=== PATIENT | female | born 1940 | race Caucasian/White ===

== ENCOUNTER → 2017-10-13 10:24 | Emergency (ER) | payer MEDICARE, BC ==
[~2017-10-13 10:24] MED LIST: cefTRIAXone(*) 1 GM in NS 0.9% 50 ML* 50 ML IVPB ONE
[2017-10-13 11:12] LABS: ABS Basophils 0 10^3/ul (0-0.2); ABS Eosinophils 0.2 10^3/ul (0-0.6); ABS Lymphocytes 0.9 10^3/ul (1.0-4.8); ABS Monocytes 0.4 10^3/ul (0-0.8); ABS Neutrophils 4.2 10^3/ul (1.5-7.7); ABS Nucleated RBC 0 10^3/ul; Eosinophil % 3.8 % (0-6); Hematocrit 36 % (35-47); Hemoglobin 11.6 g/dl (12.0-16.0); Mean Corpuscular HGB Conc 32 g/dl (31-36); Mean Corpuscular Hemoglobin 28 pg (27-31); Mean Corpuscular Volume 85 fL (80-97); Mean Platelet Volume 7.8 um3 (7.4-10.4); Nucleated Red Blood Cells % 0; Platelet Count 158 10^3/ul (150-450); Red Blood Count 4.22 10^6/ul (4.0-5.4); Red Cell Distribution Width 19 % (10.5-15); White Blood Count 5.8 10^3/ul (3.5-10.8)
--- NOTE | 2017-10-13 11:21 | RAD ---
Indication: Right leg injury. 2 views of the right lower leg demonstrates no fracture. No other bone or joint abnormality is noted. IMPRESSION: No fracture of the right lower leg is noted.
[2017-10-13 11:35] LABS: EGFR Non-African American 69.7 (>60)
--- NOTE | 2017-10-13 12:30 | RAD ---
HISTORY: Right lower extremity swelling and redness COMPARISONS: None relevant TECHNIQUE: Multiple transverse and longitudinal ultrasound images were obtained of the right lower extremity from the level of the common femoral vein inferiorly through to the infrapopliteal veins using grayscale, color Doppler, and spectral Doppler imaging with and without compression and with augmentation. Comparison images were obtained of the contralateral common femoral vein. FINDINGS: VEINS: The venous system of the right lower extremity is compressible throughout its course, with normal flow on color Doppler imaging and normal response to augmentation on spectral Doppler imaging. SOFT TISSUES: Unremarkable. OTHER FINDINGS: None. IMPRESSION: NO RIGHT LOWER EXTREMITY DEEP VEIN THROMBOSIS
[2017-10-13 12:31] VITALS: BP 121/60
--- NOTE | 2017-10-13 17:41 | ED ---
Gulshan Borden Stephanie, scribed for Vinay Gunn MD on 10/13/17 at 1040 . Skin Complaint - HPI Summary HPI Summary: The pt is a 77 y/o F presenting to the ED with c/o a skin sore on her R LE that began a few days ago. Symptoms include R LE swelling and drainage. The pt states she hit her R LE on a post a few months ago and states her injury has partially improved but would worsen again over a period of time. She denies fever, chills and diaphoresis. Her pain is aggravated by ambulation. - History of Current Complaint Chief Complaint: EDDiabeticProb Time Seen by Provider: 10/13/17 10:30 Stated Complaint: RT LEG PAIN/SORES Hx Obtained From: Patient Onset/Duration: Started Days Ago, Still Present Timing: Constant Current Severity: Moderate Pain Intensity: 8 Pain Scale Used: 0-10 Numeric Skin Location: Foot - R Character: Swelling, Pain Aggravating Symptom(s): Other: - ambulation Alleviating Symptom(s): Nothing Related History: Diabetes - Additional Pertinent History Primary Care Physician: [id number] - Allergy/Home Medications Allergies/Adverse Reactions: Allergies Allergy/AdvReac Type Severity Reaction Status Date / Time No Known Allergies Allergy Verified 10/13/17 10:28 Home Medications: Home Medications Acarbose(NF) 25 mg PO TID 10/13/17 [History Confirmed 10/13/17] Glimepiride (NF) 3 mg PO BID 10/13/17 [History Confirmed 10/13/17] Insulin GLARGINE(*) [Lantus(*)] 60 units SUBCUT QPM 10/13/17 [History Confirmed 10/13/17] Iron 65 mg PO DAILY 10/13/17 [History Confirmed 10/13/17] Lisinopril TAB* [Prinivil TAB*] 5 mg PO DAILY 10/13/17 [History Confirmed ] Metoprolol Succinate XL TAB* [Toprol XL TAB*] 100 mg PO DAILY 10/13/17 [History Confirmed 10/13/17] Multivitamins/Minerals TAB* [Theragran/minerals TAB*] 1 tab PO DAILY 10/13/17 [ History Confirmed 10/13/17] Saxagliptin HCl (Nf) [Onglyza (NF)] 5 mg PO DAILY 10/13/17 [History Confirmed ] Spironolactone TAB* [Aldactone TAB*] 12.5 mg PO DAILY 10/13/17 [History Confirmed 10/13/17] PMH/Surg Hx/FS Hx/Imm Hx Endocrine/Hematology History: Reports: Hx Diabetes, Hx Anemia Cardiovascular History: Reports: Hx Coronary Artery Disease, Hx Hypercholesterolemia, Hx Hypertension GI History: Reports: Hx Hiatal Hernia History: Reports: Hx Kidney Stones Denies: Hx Kidney Infection, Hx Renal Disease Musculoskeletal History: Reports: Hx Arthritis, Other Musculoskeletal History - shoulder knee surgery Sensory History: Reports: Hx Contacts or Glasses Opthamlomology History: Reports: Hx Contacts or Glasses - Cancer History Cancer Type, Location and Year: Uterine CA initial dx 1989 - Surgical History Surgery Procedure, Year, and Place: [place], hysterectomy hernia repair gastroplasty Hx Anesthesia Reactions: No Infectious Disease History: No Infectious Disease History: Denies: Traveled Outside the [place] in Last 30 Days - Family History Known Family History: Negative: Renal Disease - Social History Occupation: Retired Lives: With Family Alcohol Use: Rare Hx Substance Use: No Substance Use Type: Reports: None Hx Tobacco Use: No Smoking Status (MU): Never Smoked Tobacco Have You Smoked in the Last Year: No Review of Systems Negative: Fever, Chills, Skin Diaphoresis Positive: Edema - R foot Positive: Other - R foot swelling and drainage All Other Systems Reviewed And Are Negative: Yes Physical Exam - Summary Physical Exam Summary: VITAL SIGNS: Reviewed. GENERAL: Patient is a well-developed and obese FEMALE who is lying comfortable in the stretcher. Patient is not in any acute respiratory distress. HEAD AND FACE: No signs of trauma. No ecchymosis, hematomas or skull depressions. No sinus tenderness. EYES: PERRLA, EOMI x 2, No injected conjunctiva, no nystagmus. EARS: Hearing grossly intact. Ear canals and tympanic membranes are within normal limits. MOUTH: Oropharynx within normal limits. NECK: Supple, trachea is midline, no adenopathy, no JVD, no carotid bruit, no c- spine tenderness, neck with full ROM. CHEST: Symmetric, no tenderness at palpation LUNGS: Clear to auscultation bilaterally. No wheezing or crackles. CVS: Regular rate and rhythm, S1 and S2 present, no murmurs or gallops appreciated. ABDOMEN: Soft, non-tender. No signs of distention. No rebound no guarding, and no masses palpated. Bowel sounds are normal. EXTREMITIES: FROM in all major joints, no edema, no cyanosis or clubbing. NEURO: Alert and oriented x 3. No acute neurological deficits. Speech is normal and follows commands. SKIN: Dry and warm, 6 small wounds on the R LE which are weeping and have some discharge. There is chronic brownish discoloration secondary to peripheral vascular disease. Triage Information Reviewed: Yes Vital Signs On Initial Exam: Initial Vitals Temp Pulse Resp BP Pulse Ox 96.7 F 80 16 138/96 94 10/13/17 10:25 10/13/17 10:25 10/13/17 10:25 10/13/17 10:25 10/13/17 10:25 Vital Signs Reviewed: Yes Diagnostics - Vital Signs Vital Signs Temp Pulse Resp BP Pulse Ox 10/13/17 10:25 96.7 F 80 16 138/96 94 - Laboratory Lab Results: Lab Results 10/13/17 10/13/17 10/13/17 Range/Units 10:59 10:59 10:59 WBC 5.8 (3.5-10.8) 10^3/ul RBC 4.22 (4.0-5.4) 10^6/ul Hgb 11.6 L (12.0-16.0) g/dl Hct 36 (35-47) % MCV 85 (80-97) fL MCH 28 (27-31) pg MCHC 32 (31-36) g/dl RDW 19 H (10.5-15) % Plt Count 158 (150-450) 10^3/ul MPV 7.8 (7.4-10.4) um3 Neut % (Auto) 72.4 (38-83) % Lymph % (Auto) 16.0 L (25-47) % Daggett % (Auto) 7.1 H (0-7) % Eos % (Auto) 3.8 (0-6) % Baso % (Auto) 0.7 (0-2) % Absolute Neuts (auto) 4.2 (1.5-7.7) 10^3/ul Absolute Lymphs (auto) 0.9 L (1.0-4.8) 10^3/ul Absolute Monos (auto) 0.4 (0-0.8) 10^3/ul Absolute Eos (auto) 0.2 (0-0.6) 10^3/ul Absolute Basos (auto) 0 (0-0.2) 10^3/ul Absolute Nucleated RBC 0 10^3/ul Nucleated RBC % 0 VBG pH (7.33-7.43) VBG pCO2 (41-51) mmHg VBG pO2 (35-45) mmHg VBG HCO3 (24-28) mmol/L VBG O2 Saturation (70-80) % VBG Base Excess (0-4) Sodium 139 (139-145) mmol/L Potassium 4.3 (3.5-5.0) mmol/L Chloride 104 (101-111) mmol/L Carbon Dioxide 30 (22-32) mmol/L Anion Gap 5 (2-11) mmol/L BUN 21 (6-24) mg/dL Creatinine 0.80 (0.51-0.95) mg/dL Est GFR ( Amer) 89.7 (>60) Est GFR (Non-Af Amer) 69.7 (>60) BUN/Creatinine Ratio 26.3 H (8-20) Glucose 247 H (70-100) mg/dL Lactic Acid 1.2 (0.5-2.0) mmol/L Calcium 9.8 (8.6-10.3) mg/dL Magnesium 2.4 (1.9-2.7) mg/dL Total Bilirubin 0.80 (0.2-1.0) mg/dL AST 16 (13-39) U/L ALT 11 (7-52) U/L Alkaline Phosphatase 135 H (34-104) U/L Total Creatine Kinase 91 (10-223) U/L C-Reactive Protein 9.56 H (< 5.00) mg/L Total Protein 7.1 (6.4-8.9) g/dL Albumin 3.8 (3.2-5.2) g/dL Globulin 3.3 (2-4) g/dL Albumin/Globulin Ratio 1.2 (1-3) // Range/Units 10:59 WBC (3.5-10.8) 10^3/ul RBC (4.0-5.4) 10^6/ul Hgb (12.0-16.0) g/dl Hct (35-47) % MCV (80-97) fL MCH (27-31) pg MCHC (31-36) g/dl RDW (10.5-15) % Plt Count (150-450) 10^3/ul MPV (7.4-10.4) um3 Neut % (Auto) (38-83) % Lymph % (Auto) (25-47) % Daggett % (Auto) (0-7) % Eos % (Auto) (0-6) % Baso % (Auto) (0-2) % Absolute Neuts (auto) (1.5-7.7) 10^3/ul Absolute Lymphs (auto) (1.0-4.8) 10^3/ul Absolute Monos (auto) (0-0.8) 10^3/ul Absolute Eos (auto) (0-0.6) 10^3/ul Absolute Basos (auto) (0-0.2) 10^3/ul Absolute Nucleated RBC 10^3/ul Nucleated RBC % VBG pH 7.35 (7.33-7.43) VBG pCO2 54 H (41-51) mmHg VBG pO2 34 L (35-45) mmHg VBG HCO3 26.7 (24-28) mmol/L VBG O2 Saturation 69.5 L (70-80) % VBG Base Excess 3.2 (0-4) Sodium (139-145) mmol/L Potassium (3.5-5.0) mmol/L Chloride (101-111) mmol/L Carbon Dioxide (22-32) mmol/L Anion Gap (2-11) mmol/L BUN (6-24) mg/dL Creatinine (0.51-0.95) mg/dL Est GFR ( Amer) (>60) Est GFR (Non-Af Amer) (>60) BUN/Creatinine Ratio (8-20) Glucose (70-100) mg/dL Lactic Acid (0.5-2.0) mmol/L Calcium (8.6-10.3) mg/dL Magnesium (1.9-2.7) mg/dL Total Bilirubin (0.2-1.0) mg/dL AST (13-39) U/L ALT (7-52) U/L Alkaline Phosphatase (34-104) U/L Total Creatine Kinase (10-223) U/L C-Reactive Protein (< 5.00) mg/L Total Protein (6.4-8.9) g/dL Albumin (3.2-5.2) g/dL Globulin (2-4) g/dL Albumin/Globulin Ratio (1-3) Result Diagrams: 10/13/17 10:59 10/13/17 10:59 Lab Statement: Any lab studies that have been ordered have been reviewed, and results considered in the medical decision making process. - Radiology LE XRay Xray Interpretation: No Acute Changes Radiology Interpretation Completed By: Radiologist - NO FRACTURE OF THE R LOWER LEG IS NOTED. ED physician has reviewed this report. Re-Evaluation - Re-Evaluation First Eval Re-Evaluation Time: 12:47 Change: Unchanged - ED physician discussed plan of discharge with the pt and the pt understands and agrees. Course/Dx - Course Assessment/Plan: This patient is a 77-year-old female who presents to the emergency department with a chief complaint of having wounds in the right lower extremity. She reports that she has past medical history significant for diabetes and she usually has fasciculation and wounds in the right lower extremity. He denies any fever or chills, she doesnt have any calf pain. Right lower extremity x-ray impression: No fracture of the right lower leg. Blood work without any significant abnormality except glucose of 247, and a CRP of 9.5. VBG shows a PCO2 of 54. I believe that the symptoms are secondary to the infection. Cultures were sent. The patient was started on ceftriaxone. Right lower extremity ultrasound impression: No right lower extremity DVT. Therefore I think that the patients symptoms are secondary to a cellulitis therefore the patient will be discharged home with a prescription for Bactrim. I discussed the findings and test results with the patient and the need to return to the emergency department if she develops more pain, worsening swelling and redness or any other symptom. The patient understands and agrees. - Differential Diagnoses - Skin Complaint Differential Diagnoses: Cellulitis, Drug Rash, Eczema - Diagnoses Provider Diagnoses: Cellulitis Discharge - Sign-Out/Discharge Documenting (check all that apply): Discharge/Admit/Transfer - Discharge - Discharge Plan Condition: Stable Disposition: HOME Prescriptions: Sulfamethox/Trimethoprim DS* [Bactrim DS 800/160 TAB*] 1 tab PO BID #20 tab Patient Education Materials: Cellulitis (ED) Referrals: Damaso Sylvester MD [Primary Care Provider] - 3 Days Additional Instructions: Please return to the ED for any new or worsening symptoms. The documentation as recorded by the Gulshan henley Stephanie accurately reflects the service I personally performed and the decisions made by , Vinay Gunn MD.
--- NOTE | 2017-10-14 06:41 | PN ---
Progress Note - Progress Note Date of Service: 10/14/17 Note: patient preliminary wound culture positive for s aureus neg for mrsa. patient place on bactrim so will wait for final culture for sensitivity.
--- NOTE | 2017-10-16 07:12 | PN ---
Progress Note - Progress Note Date of Service: 10/13/17 Note: Bactrim sensitive to organism nothing further at this time Kaylee June PAC
== END | disposition home or self-care (01) ==
LOC: ED 10:24
DX: E11.628 Type 2 diabetes mellitus with other skin complications (principal); L03.115 Cellulitis of right lower limb; Z79.4 Long term (current) use of insulin; I25.10 Atherosclerotic heart disease of native coronary artery without angina pectoris; E78.00 Pure hypercholesterolemia, unspecified; I10 Essential (primary) hypertension; Z85.42 Personal history of malignant neoplasm of other parts of uterus
CPT/HCPCS: 36415; 80053; 82550; 82803; 83605; 83735; 85025; 86140; 87070; 87077; 87186; 87205; 87640; 87641; 96374; 99283; J0696

== ENCOUNTER 2017-12-25 09:40 | Emergency (ER) | payer MEDICARE, BC ==
--- OUTSIDE RECORDS SUMMARY | 2017-12-25 10:04 | XMS REPORT ---
:1940 External Reference #:[id number] Author Organization [facility] Address [address] [place] [address] Phone [phone] Care Team Providers Name Role Phone Damaso Sylvester M.D. Primary Care Physician Unavailable Payers Type Date Identification Numbers Payment Provider Subscriber Medicare Primary Policy Number: [id number] Medicare - NGS Nicole Kaufman PayID: [id number] [address] [place] [address] Commercial Policy Number: [id number] [place] Plan Bhupendra Kaufman PayID: [id number] [address] [place] [address] Problems Date Description Provider Status Onset: History of myocardial infarction Active Note: Onset: Type 2 diabetes mellitus Active Note: 2013 Onset: Essential hypertension Active Onset: 09/23/2016 Central retinal vein occlusion with Umer Martins M.D. Active macular edema Onset: 09/23/2016 Combined form of senile cataract Umer Martins M.D. Active Onset: 12/23/2016 Central retinal vein occlusion Philippe Jenkins M.D. 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 Active macular edema, r eye Onset: 01/25/2017 Nuclear senile cataract Philippe Jenkins M.D. 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 ETOH Use Denies alcohol use Smoking Patient has never smoked Daily Caffeine Rare Soda Daily Caffeine Rare Coffee Allergies, Adverse Reactions, Alerts Date Description Reaction Status Severity Comments 09/23/2016 NKDA active Medications Medication Date Status Form Strength Qnty SIG Indications Ordering Provider Lisinopril / Active Tablets 5mg McClintic, 0000 Dylan M.DShirley Onglyza / Active Tablets 5mg Pesesky, 0000 Hannah F.N.P Lyrica / Active Capsules 50mg Keaton, 0000 Naty [employer]LO[employer] MARKETING SPECIALIST-C Spironolactone / Active Tablets 25mg McClintic, 0000 Dylan M.DShirley Pramipexole / Active Tablets 1mg Keaton, Dihydrochloride 0000 Naty [employer]ET[employer] SPECIALIST-C Metoprolol / Active Tablets ER 50mg Keaton, Succinate ER 0000 24HR Naty HENRYP-Ezra Glimepiride / Active Tablets 2mg Worthington,Mat 0000 thew M.D. Lantus Solostar / Active Solution 100Unit/ML Pesesky, 0000 Pen-Inject Hannah F.N.P Torsemide / Active Tablets 20mg Take 1 Unknown 0000 Tablet By Mouth Twice Daily Eliquis / Active Tablets 5mg Take One Unknown 0000 Tablet By Mouth Twice A Day Atorvastatin / Active Tablets 40mg Worthington,Mat Calcium 0000 thew M.D. Acarbose / Active Tablets 25mg Pesesky, 0000 Hannah F.N.P Multi Vitamin // Active Tablets Unknown Daily 0000 Iron / Active Tablets 28mg Unknown 0000 Vitamin B12 / Active Tablets ER 1000mcg Unknown 0000 Medications Administered in Office Medication Date Status Form Strength Qnty SIG Indications Ordering Provider Avastin Administered Injection Philippe Bevacizumab Ttai Jenkins M.D. Avastin Administered Injection Philippe Bevacizumab Tati Jenkins M.D. Avastin Administered Injection Philippe Bevacizumab Althea Jenkins M.D. Avastin Administered Injection Philippe Bevacizumab Althea Jenkins M.D. Avastin Administered Injection Philippe Bevacizumab 017 Avila Jenkins Avastin Administered Injection Philippe Bevacizumab 017 Avila Jenkins Vital Signs Date Vital Result Comment 09/21/2017 BP Systolic 130 mmHg BP Diastolic 82 mmHg Heart Rate 68 /min Respiratory Rate 16 /min 07/20/2017 BP Systolic 122 mmHg BP Diastolic 82 mmHg Heart Rate 68 /min Respiratory Rate 16 /min 05/18/2017 BP Systolic 151 mmHg BP Diastolic 82 mmHg Heart Rate 74 /min Respiratory Rate 15 /min 12/08/2016 BP Systolic 138 mmHg BP Diastolic 70 mmHg Heart Rate 64 /min Respiratory Rate 16 /min 11/03/2016 BP Systolic 137 mmHg BP Diastolic 72 mmHg Heart Rate 64 /min Respiratory Rate 16 /min 09/29/2016 BP Systolic 115 mmHg BP Diastolic 85 mmHg Heart Rate 100 /min Respiratory Rate 15 /min Results Description No Information Procedures Date CPT Code Description Status 09/21/2017 68132 Injection Intravitreal Of A Pharmacologic Agent Completed 07/20/2017 58654 Injection Intravitreal Of A Pharmacologic Agent Completed 05/18/2017 18422 Injection Intravitreal Of A Pharmacologic Agent Completed 05/09/2017 54204 Scanning Computerized Opthalmic Diagnostic Posterior Completed Seg Retina 05/09/2017 85466 Est Patient Comprehensive Exam Completed 01/25/2017 11337 Scanning Computerized Opthalmic Diagnostic Posterior Completed Seg Retina 12/23/2016 18542 Scanning Computerized Opthalmic Diagnostic Posterior Completed Seg Retina 12/08/2016 64281 Injection Intravitreal Of A Pharmacologic Agent Completed 11/03/2016 04397 Injection Intravitreal Of A Pharmacologic Agent Completed 09/29/2016 80966 Injection Intravitreal Of A Pharmacologic Agent Completed 09/23/2016 74159 Scanning Computerized Opthalmic Diagnostic Posterior Completed Seg Retina 09/23/2016 96345 New Patient Comprehensive Exam Completed Encounters Type Date Location Provider CPT E/M Dx Office Visit 01/25/2017 Umer Martins MD, Philippe Jenkins, [address] H34.8112 9:00a gayatri [place] H25.13 Office Visit 12/23/2016 8:00a Philippe [place], [address] H34.8112 , gayatri [place] H25.813 Plan of Care 12/01/2017 - Philippe Jenkins M.D.H34.8110 Central retinal vein occls, right eye, with macular edemaComments:Smoking can increase the risk of developing or worsening any eye related disease, as well as affect your overall health. If you are a smoker, we strongly recommend that you quit.If you are not a smoker, we strongly recommend that you do not start. You have a Central Retinal Vein Occlusion. This occurs when the retinal veins have become blocked by, amongst other things, fat deposits or a blood clot. You are at an increased risk of having a Central Retinal Vein Occlusion if there has been any hardening of the arteries in the eye. Please follow any instructions given to you by Dr. Jenkins.E11.3211 Type 2 diab with mild nonp rtnop with macular edema, r eyeE11.3292 Type 2 diab with mild nonp rtnop without mclr edema, l eye
[2017-12-25] MEDS ORDERED: Clindamycin 600 MG IVPREMIX(* 600 MG/50 ML SDV IV ONE (12:16)
--- NOTE | 2017-12-25 12:30 | ED ---
Skin Complaint - HPI Summary HPI Summary: This is lory Nava documenting for attending Jorge Otero MD. This patient is a 77 year old F presenting to [facility] with a chief complaint of leg sores that wont heal since a week ago. Patient reports numbness in her toes , worsening edema of the ankles and feet, and intermittent sharp pains in her calves and ankles. Pt reports that her symptoms were getting better but are worsening again. Pt reports that she had a callus taken off on her left foot on Tuesday. The pt has had these same symptoms before around a year ago. NKDA. PMHx DM. - History of Current Complaint Chief Complaint: EDExtremityLower Time Seen by Provider: 12/25/17 11:46 Stated Complaint: SORES ON LEGS Hx Obtained From: Patient Onset/Duration: Started Weeks Ago - 1 Timing: Constant Onset Severity: Moderate Current Severity: Severe Pain Intensity: 0 Skin Location: Discrete - ankles and feet Associated Signs & Symptoms: Bruising - Additional Pertinent History Primary Care Physician: [id number] - Allergy/Home Medications Allergies/Adverse Reactions: Allergies Allergy/AdvReac Type Severity Reaction Status Date / Time No Known Allergies Allergy Verified 12/25/17 09:56 PMH/Surg Hx/FS Hx/Imm Hx Endocrine/Hematology History: Reports: Hx Diabetes, Hx Anemia Cardiovascular History: Reports: Hx Coronary Artery Disease, Hx Hypercholesterolemia, Hx Hypertension GI History: Reports: Hx Hiatal Hernia History: Reports: Hx Kidney Stones Denies: Hx Kidney Infection, Hx Renal Disease Musculoskeletal History: Reports: Hx Arthritis, Other Musculoskeletal History - shoulder knee surgery Sensory History: Reports: Hx Contacts or Glasses Opthamlomology History: Reports: Hx Contacts or Glasses - Cancer History Cancer Type, Location and Year: Uterine CA initial dx 1989 - Surgical History Surgery Procedure, Year, and Place: [place], hysterectomy hernia repair gastroplasty Hx Anesthesia Reactions: No Infectious Disease History: No Infectious Disease History: Denies: Traveled Outside the [place] in Last 30 Days - Family History Known Family History: Positive: Diabetes Negative: Renal Disease - Social History Alcohol Use: Rare Hx Substance Use: No Substance Use Type: Reports: None Hx Tobacco Use: No Smoking Status (MU): Never Smoked Tobacco Have You Smoked in the Last Year: No Review of Systems Negative: Fever Positive: Edema - ankles and feet, Other - pains in ankles Positive: Numbness - toes All Other Systems Reviewed And Are Negative: Yes Physical Exam - Summary Physical Exam Summary: Appearance: The patient is well-nourished in no acute distress and in no acute pain. Skin: The skin is warm and dry. Bilateral pedal edema, with erythema, ecchymosis , and open areas. Weeping. HEENT: The head is normocephalic and atraumatic. The pupils are equal and reactive. The conjunctivae are clear and without drainage. Nares are patent and without drainage. Mouth reveals moist mucous membranes and the throat is without erythema and exudate. The external ears are intact. The ear canals are patent and without drainage. The tympanic membranes are intact. Neck: The neck is supple with full range of motion and non-tender. There are no carotid bruits. There is no neck vein distension. Respiratory: Chest is non-tender. Lungs are clear to auscultation and breath sounds are symmetrical and equal. Cardiovascular: Heart is regular rate and rhythm. There is no murmur or rub auscultated. Pulses are symmetrical and equal. Abdomen: The abdomen is soft and non-tender. There are normal bowel sounds heard in all four quadrants and there is no organomegaly palpated. Musculoskeletal: There is no back tenderness noted. Extremities are non-tender with full range of motion. There is good capillary refill. There is peripheral edema. Neurological: Patient is alert and oriented to person, place and time. The patient has symmetrical motor strength in all four extremities. Cranial nerves are grossly intact. Deep tendon reflexes are symmetrical and equal in all four extremities. Psychiatric: The patient has an appropriate affect and does not exhibit any anxiety or depression. Triage Information Reviewed: Yes Vital Signs On Initial Exam: Initial Vitals Temp Pulse Resp BP Pulse Ox 97.2 F 77 14 103/61 100 12/25/17 09:46 12/25/17 09:46 12/25/17 09:46 12/25/17 09:46 12/25/17 09:46 Vital Signs Reviewed: Yes Diagnostics - Vital Signs Vital Signs Temp Pulse Resp BP Pulse Ox 12/25/17 09:46 97.2 F 77 14 103/61 100 - Laboratory Result Diagrams: 12/25/17 12:26 12/25/17 12:26 Lab Statement: Any lab studies that have been ordered have been reviewed, and results considered in the medical decision making process. Course/Dx - Course Course Of Treatment: Ms. Kaufman presented with about a week of increased swelling in her lower extremities, erythema and weeping. She has had it before and it was getting better and almost completely gone and then suddenly got worse again she hasn't felt systemically ill and presented afebrile. Her labs were fairly good with no leukocytosis. She had a small CRP elevation and her BNP was slightly elevated although the last time was checked it was quite a bit higher. An IV was initiated and she was given clindamycin IV and this will be continued by mouth and I recommended close follow-up with her PCP. - Diagnoses Provider Diagnoses: Cellulitis Discharge - Sign-Out/Discharge Documenting (check all that apply): Patient Departure - Discharge - Discharge Plan Condition: Stable Disposition: HOME Prescriptions: Clindamycin Cap(NF) [Clindamycin Cap 300 mg Cap(NF)] 300 mg PO Q6H #40 cap Patient Education Materials: Cellulitis (ED) Referrals: Damaso Sylvester MD [Primary Care Provider] - 3 Days Additional Instructions: RETURN TO THE EMERGENCY DEPARTMENT FOR CHANGING OR WORSENING SYMPTOMS. - Billing Disposition and Condition Condition: STABLE Disposition: Home
[2017-12-25 12:34] LABS: ABS Basophils 0 10^3/ul (0-0.2); ABS Eosinophils 0.3 10^3/ul (0-0.6); ABS Lymphocytes 0.9 10^3/ul (1.0-4.8); ABS Monocytes 0.4 10^3/ul (0-0.8); ABS Neutrophils 4.8 10^3/ul (1.5-7.7); ABS Nucleated RBC 0 10^3/ul; Eosinophil % 3.9 % (0-6); Hematocrit 38 % (35-47); Hemoglobin 12.2 g/dl (12.0-16.0); Lymphocyte % 14.5 % (25-47); Mean Corpuscular HGB Conc 33 g/dl (31-36); Mean Corpuscular Hemoglobin 28 pg (27-31); Mean Corpuscular Volume 86 fL (80-97); Mean Platelet Volume 7.5 um3 (7.4-10.4); Nucleated Red Blood Cells % 0.1; Platelet Count 169 10^3/ul (150-450); Red Blood Count 4.37 10^6/ul (4.00-5.40); Red Cell Distribution Width 20 % (10.5-15); White Blood Count 6.5 10^3/ul (3.5-10.8)
[2017-12-25 12:39] LABS: INR 1.57 (0.77-1.02)
[2017-12-25 12:53] LABS: EGFR Non-African American 71.8 (>60)
[2017-12-25 14:29] VITALS: BP 122/67
== END 2017-12-25 14:28 | disposition home or self-care (01) ==
LOC: ED 09:40
DX: L03.119 Cellulitis of unspecified part of limb (principal); I25.10 Atherosclerotic heart disease of native coronary artery without angina pectoris; I10 Essential (primary) hypertension; Z87.442 Personal history of urinary calculi
CPT/HCPCS: 36415; 80053; 83605; 83880; 85025; 85610; 86140; 87040; 96374; 99283

== ENCOUNTER 2018-02-06 06:16 | Inpatient (IN) | payer MEDICARE, BC ==
--- NOTE | 2018-02-06 06:36 | ED ---
HPI Diabetic - HPI Summary HPI Summary: This patient is a 77 year old F BIBA to [facility] after the ambulance was called from [facility] due to low blood glucose. EMS states that when they arrived her blood glucose was 45 and she was given glucose which elicited a large improvement. The patient rates the pain 0/10 in severity. Patient reports that she is not urinating right. She takes one shot of insulin at night and took it last night. She also ate dinner and did not have a late night snack. She denies recent illness. - History Of Current Complaint Hx Obtained From: Patient Onset/Duration: Lasting Hours, Resolved Timing: Intermittent Episode Lasting Severity Initially: Moderate Severity Currently: None Character: Alert - now Alleviating: EMS Treatment Associated Signs & Symptoms: Negative - fever - Allergies/Home Medications Allergies/Adverse Reactions: Allergies Allergy/AdvReac Type Severity Reaction Status Date / Time No Known Allergies Allergy Verified 12/25/17 09:56 PMH/Surg Hx/FS Hx/Imm Hx Endocrine/Hematology History: Reports: Hx Diabetes, Hx Anemia Cardiovascular History: Reports: Hx Coronary Artery Disease, Hx Hypercholesterolemia, Hx Hypertension GI History: Reports: Hx Hiatal Hernia History: Reports: Hx Kidney Stones Denies: Hx Kidney Infection, Hx Renal Disease Musculoskeletal History: Reports: Hx Arthritis, Other Musculoskeletal History - shoulder knee surgery Sensory History: Reports: Hx Contacts or Glasses Opthamlomology History: Reports: Hx Contacts or Glasses - Cancer History Cancer Type, Location and Year: Uterine CA initial dx 1989 - Surgical History Surgery Procedure, Year, and Place: [place], hysterectomy hernia repair gastroplasty Hx Anesthesia Reactions: No Infectious Disease History: Denies: Traveled Outside the [place] in Last 30 Days - Family History Known Family History: Positive: Diabetes Negative: Renal Disease - Social History Alcohol Use: Rare Hx Substance Use: No Substance Use Type: Reports: None Hx Tobacco Use: No Smoking Status (MU): Never Smoked Tobacco Have You Smoked in the Last Year: No Review of Systems Negative: Fever Genitourinary: Other - "not peeing right" Positive: Other - [facility] All Other Systems Reviewed And Are Negative: Yes Physical Exam - Summary Physical Exam Summary: Appearance: Well-appearing, obese, lying in bed comfortably Skin: chronic venous stasis changes due to edema Eyes: sclera anicteric, no conjunctival pallor ENT: mucous membranes moist, pharynx appears normal Neck: Supple, nontender Respiratory: Clear to auscultation, no signs of respiratory distress Cardiovascular: Normal S1, S2. No murmurs. Normal distal pulses in tibial and radial bilaterally. Abdomen: Soft, nontender, normal active bowel sounds present Musculoskeletal: Normal, Strength/ROM Intact Neurological: A&Ox3, awake and alert, mentation is normal, speech is fluent and appropriate Psychiatric: affect is normal, does not appear anxious or depressed Triage Information Reviewed: Yes Vital Signs Reviewed: Yes Diagnostics - Laboratory Result Diagrams: 02/09/18 06:48 02/09/18 06:48 Lab Statement: Any lab studies that have been ordered have been reviewed, and results considered in the medical decision making process. Diabetic Course/Dx - Course Assessment/Plan: This patient is a 77 year old F BIBA to [facility] after the ambulance was called from [facility] due to low blood glucose. EMS states that when they arrived her blood glucose was 45 and she was given glucose which caused a large improvement. The patient rates the pain 0/10 in severity. Patient reports that is is not urinating right. She takes one shot of insulin at night and took it last night. She also ate dinner and did not have a late night snack. She denies recent illness. This patient will be signed out to Dr. Gunn awaiting dispo and observation to make sure her blood sugar does not drop again. - Diagnoses Provider Diagnoses: Acute renal failure, Dehydration, Hypoglycemia Discharge - Sign-Out/Discharge Documenting (check all that apply): Sign-Out Patient Signing out patient TO: Vinay Gunn - Discharge Plan Condition: Good Disposition: ADMITTED TO [facility] - Billing Disposition and Condition Condition: GOOD Disposition: Admitted to [facility] - Attestation Statements Document Initiated by Scribe: Yes Documenting Scribe: Manolo Massey Provider For Whom Yulia is Documenting (Include Credential): Jorge Zuleta MD Scribe Attestation: Manolo Borden , pauletteed for Jorge Zuleta MD on 02/09/18 at 1822. Scribe Documentation Reviewed: Yes Provider Attestation: The documentation as recorded by the Manolo henley accurately reflects the service I personally performed and the decisions made by me, Jorge Zuleta MD
[2018-02-06 06:47] LABS: ABS Basophils 0 10^3/ul (0-0.2); ABS Eosinophils 0.3 10^3/ul (0-0.6); ABS Lymphocytes 0.2 10^3/ul (1.0-4.8); ABS Monocytes 0.3 10^3/ul (0-0.8); ABS Neutrophils 7.3 10^3/ul (1.5-7.7); ABS Nucleated RBC 0 10^3/ul; Eosinophil % 3.7 % (0-6); Hematocrit 35 % (35-47); Hemoglobin 11.2 g/dl (12.0-16.0); Mean Corpuscular HGB Conc 32 g/dl (31-36); Mean Corpuscular Hemoglobin 28 pg (27-31); Mean Corpuscular Volume 85 fL (80-97); Mean Platelet Volume 8.1 um3 (7.4-10.4); Nucleated Red Blood Cells % 0.1; Platelet Count 167 10^3/ul (150-450); Red Blood Count 4.07 10^6/ul (4.00-5.40); Red Cell Distribution Width 19 % (10.5-15); White Blood Count 8.2 10^3/ul (3.5-10.8)
[2018-02-06 07:01] LABS: EGFR Non-African American 19.9 (>60)
[2018-02-06] MEDS ORDERED: NS 0.9% 1000 ML* 1,000 ML IV ONE ×2 (07:11→08:11)
[2018-02-06 07:35] LABS: Urine Appearance Clear; Urine Blood Negative (Negative); Urine Color Yellow; Urine Ketones Negative (Negative); Urine Protein Negative (Negative); Urine Specific Gravity 1.006 (1.010-1.030); Urine Urobilinogen Negative (Negative)
--- NOTE | 2018-02-06 07:43 | ED ---
Progress - Progress Note Progress Note: Patient was received as a sign out from Dr. Jorge Zuleta to Dr. Vinay Gunn at 0700 [id number] -- Dr. Gunn evaluated the patient. Patient is a 77 y/o F w/ c/o low BG. Patient takes lantus, 16 units. Patient reports that BG was low initially in the night yesterday, but the second time she measured it, her levels were 132. BG dropped at later hours. She states she ate meatloaf and an ear of corn last night for dinner. This is a typical meal for the patient. She reports experiencing a cough the past week. She denies fevers, diarrhea, chest pain, and SOB. Patient denies alcohol use and Hx of kidney failure. PHYSICAL EXAM: VITAL SIGNS: Reviewed. GENERAL: Patient is a well-developed and obese female who is lying comfortable in the stretcher. Patient is not in any acute respiratory distress. HEAD AND FACE: No signs of trauma. No ecchymosis, hematomas or skull depressions. No sinus tenderness. EYES: PERRLA, EOMI x 2, No injected conjunctiva, no nystagmus. EARS: Hearing grossly intact. Ear canals and tympanic membranes are within normal limits. MOUTH: Oropharynx within normal limits. Dry oral mucosa are noted. NECK: Supple, trachea is midline, no adenopathy, no JVD, no carotid bruit, no c- spine tenderness, neck with full ROM. CHEST: Symmetric, no tenderness at palpation LUNGS: Clear to auscultation bilaterally. No wheezing or crackles. CVS: Regular rate and rhythm, S1 and S2 present, no murmurs or gallops appreciated. ABDOMEN: Soft, non-tender. No signs of distention. No rebound no guarding, and no masses palpated. Bowel sounds are normal. EXTREMITIES: FROM in all major joints, no edema, no cyanosis or clubbing. BLE discoloration, possibly secondary to vascular insufficiency. NEURO: Alert and oriented x 3. No acute neurological deficits. Speech is normal and follows commands. SKIN: Dry and warm 0814 -- Dr. Walton was consulted on patient's case at 0814 as patient's labs showed acute renal failure. Dr. Walton will do a medical consult. - EKG/XRAY/CT EKG: rhythm - 0755: afib w/ 59 BPM, no ST elevation, similar to EKG from 2013 Comments: 0755: afib w/ 59 BPM, no ST elevation, similar to EKG from 04/29/2014 Xray Comments: CXR: cardiomegaly with interstitial edema consistent with CHF Re-Evaluation - Re-Evaluation First Eval Re-Evaluation Time: 07:27 Comment: Dr. Gunn evaluated the patient. Patient is a 77 y/o F w/ c/o low BG. Patient takes lantus, 16 units. Patient reports that BG was low initially in the night yesterday, but the second time she measured it, her levels were 132. BG dropped at later hours. She states she ate meatloaf and an ear of corn last night for dinner. This is a typical meal for the patient. She reports experiencing a cough the past week. She denies fevers, diarrhea, chest pain, and SOB. Patient denies alcohol use and Hx of kidney failure. Course/Dx - Course Course Of Treatment: This patient was signed out by Dr. Cuevas. He reports that the patient had an episode of hypoglycemia in the 40s the patient was given glucose and right now the fingerstick was 123. EKG shows a negative fibrillation at 59 bpm this past elevations. EKG is similar to previous . Chest x-ray impression: Cardiomegaly with interstitial edema consistent with CHF. Blood work without any significant abnormality except for sodium 132 , BP 167 creatinine 2.37 urinalysis is negative for UTI. Because of the increased BUN/CREATININE, I believe the patient is dehydrated. The patient was given IV fluids and at this time I discussed the case with the doctor Walton from the hospital services who we will do a medical consult for this patient. Patient continues to be hemodynamically stable alert and oriented 3. After Dr. Walton examined and assessed the patient she decided to admit the patient to his services for further workup and management. - Diagnoses Provider Diagnoses: Acute renal failure, Dehydration, Hypoglycemia - Provider Notifications Discussed Care Of Patient With: Mariola Walton Time Discussed With Above Provider: 08:14 Instructed by Provider To: Other - Dr. Walton was called at 0814. She will come to ED to do a medical consult and see the patient. 1000 --Dr. Gunn and Dr. Walton discussed patient's case. Dr. Walton accepts patient for admission to [facility] Discharge - Sign-Out/Discharge Documenting (check all that apply): Patient Departure - admit - Discharge Plan Condition: Good Disposition: ADMITTED TO [facility] Referrals: Damaso Sylvester MD [Primary Care Provider] - - Billing Disposition and Condition Condition: GOOD Disposition: Admitted to [facility] - Attestation Statements Document Initiated by Scribe: Yes Documenting Scribe: Enrrique White Provider For Whom Scribe is Documenting (Include Credential): Vinay Gunn MD Scribe Attestation: Enrrique Borden, scribed for Vinay Gunn MD on 02/06/18 at 1018. Scribe Documentation Reviewed: Yes Provider Attestation: The documentation as recorded by the Enrrique henley accurately reflects the service I personally performed and the decisions made by me, Vinay Gunn MD
--- NOTE | 2018-02-06 07:57 | RAD ---
Indication: Cough. 2 views of the chest are reviewed. Cardiomegaly is noted. Interstitial edema consistent with CHF is noted. IMPRESSION: Cardiomegaly with interstitial edema consistent with CHF.
--- NOTE | 2018-02-06 09:10 | RAD ---
Indication: Acute renal failure. Real-time sonography of the kidneys was performed. Right kidney measures 10.6 x 5.2 x 5.6 cm with no hydronephrosis. There is exophytic cyst in the midportion of the right kidney measuring 2.0 x 1.6 x 1.8 cm. The left kidney measures 12.3 x 7.0 x 4.4 cm. Upper pole cyst measures 1.6 x 1.4 x 1.6 cm in the mid pole cyst measures 2.5 x 2.0 x 2.1 cm. No hydronephrosis is noted. IMPRESSION: Bilateral renal cysts with no hydronephrosis in either kidney.
[2018-02-06] MEDS ORDERED: Dextrose 50% Syringe 50 ML* 25 GM/50 ML SYRINGE IV PUSH PRN (09:56)
[2018-02-06] MEDS ORDERED: Perflutren Lipid Microsphere* 3 ML VIAL ONE (10:40)
--- NOTE | 2018-02-06 12:12 | HP ---
CC: Dr. Sylvester; Dr. Michel * ADMISSION HISTORY AND PHYSICAL: DATE OF ADMISSION: 02/06/18 PRIMARY CARE PROVIDER: Dr. Damaso Sylvester, [facility]. PRIMARY MEAL ATTENDANT: Dr. Michel, [facility]. ATTENDING PROVIDER: Dr. Mariola Walton * (DICTATED BY FELECIA STOREY, ISSA ) CHIEF COMPLAINT: Hypoglycemia. HISTORY OF PRESENT ILLNESS: This is a very pleasant 77-year-old female patient , who reported having an episode of hypoglycemia overnight. The patient states her blood sugar was 40. EMS was called and she was brought in to the emergency department for evaluation. She was given dextrose by the ambulance crew on the way in. Her blood sugar was 123 in the emergency department. She was being evaluated for any further episodes of hypoglycemia as the patient did take 60 units of Lantus last night and does take oral antidiabetic meds. However, routine lab work that was performed also showed some irregularities. It was noted on her chemistry that her BUN was elevated at 67 and creatinine was at 2.37, which is abnormal for her. Her creatinine in December, which was only 1 month ago, was 0.78. Also, of note, the patient's CRP was mildly elevated at 43.54 and her BNP also just mildly elevated at 139. Also, chest x-ray was noted to have some pulmonary vascular congestion and cardiomegaly. For these reasons, we were asked to evaluate the patient for admission. At this point, I think the patient meets criteria for observation admission to evaluate her renal failure and potential acute on chronic heart failure. PAST MEDICAL HISTORY: Significant for atrial fibrillation, left bundle branch block, uterine cancer, hypertension, restless legs syndrome, morbid obesity, dilated cardiomyopathy, insulin-dependent diabetes mellitus, peripheral vascular disease, and recurrent cellulitis. PAST SURGICAL HISTORY: Significant for left total knee arthroplasty, hysterectomy, cholecystectomy, and hernia repair. MEDICATIONS: At home, include: 1. Iron supplement 65 mg p.o. daily. 2. Glargine insulin 60 units in the evening. 3. Acarbose 25 mg 3 times a day. 4. Lyrica 50 mg 3 times a day. 5. Spironolactone 12.5 mg daily. 6. Mirapex 1 mg at bedtime. 7. Glimepiride 2 mg p.o. 2 times a day. 8. Atorvastatin 40 mg daily. 9. Torsemide 20 mg 2 times a day. 10. Onglyza 5 mg p.o. daily. 11. Multivitamin with minerals 1 tablet daily. 12. Metoprolol succinate XL 100 mg p.o. daily. 13. Lisinopril 5 mg p.o. daily. 14. Apixaban 5 mg p.o. 2 times a day. ALLERGIES: She has no known drug allergies. FAMILY HISTORY: Negative for coronary artery disease, positive for diabetes mellitus. SOCIAL HISTORY: She denies tobacco. Denies any illicit drug use and denies any alcohol use. CODE STATUS: The patient is a full code. She will allow CPR; however, the patient denies intubation and any artificial respirations. Her healthcare proxy and emergency contact is her daughter, Geneva Zhang, her phone number is [phone]. REVIEW OF SYSTEMS: The patient denies any fever, fatigue, or chills. She denies any visual disturbances. She denies any chest pain. No palpitations. She denies any orthopnea or paroxysmal nocturnal dyspnea. She denies acute shortness of breath. She does state she has had a cough recently, which is unproductive. She denies any nausea, vomiting, or diarrhea. No abdominal pain. No urinary complaints. No arthralgias or myalgias at this moment. She does complain of rashes on her bilateral lower extremities secondary to her recovering cellulitis. Neurologically, she denies any weakness, numbness, or tingling. No paresthesias noted on her extremities. She denies any polyuria or polydipsia. She denies any easy bruising or bleeding. PHYSICAL EXAMINATION GENERAL: Reveals a well-appearing, obese female, not in any acute distress. HEENT: The patient is atraumatic, normocephalic. PERRLA with anicteric sclerae. Oral mucosa is moist. Tongue is midline. NECK: Supple. No tenderness noted. No JVD noted. No carotid bruits auscultated. No thyromegaly appreciated. LUNGS: Diminished at the bases. No rhonchi noted and again due to body habitus , difficult to auscultate if there are rales or not. She does have a poor inspiratory effort with good air entry. CARDIOVASCULAR: S1, S2 present. Rate and rhythm are irregular. No murmurs, gallops, or rubs noted, although it is difficult to auscultate due to body habitus. ABDOMEN: Soft, nontender, nondistended. Positive bowel sounds in all 4 quadrants. Abdomen is obese. INTEGUMENTARY: She does not appear to have any skin breakdown throughout her body. Her lower extremities at baseline are mottled and discolored. She has +2 distal pulses palpable; however, she does have some flaking and scabbing with the left anterior tay, the worst area, there did not appear to be any open wounds or nonhealing ulcers at this point, but she does have dry scabbing and scaling. NEUROLOGIC: She is grossly intact with no focal deficits. PSYCHIATRIC: She is cooperative and appropriate. DIAGNOSTIC STUDIES/LAB DATA: WBC 8.2, platelets 167, hemoglobin 11.2, hematocrit 35. Sodium 132, potassium 4.0, chloride 98, CO2 27, BUN 67, creatinine 2.37, glucose venous is 123. Her BNP is 139. Her EKG shows atrial fibrillation with a left bundle branch block. No STEMI and no change from her previous EKG. Ultrasound of the kidneys was performed in the emergency department, which showed some renal cyst, but no hydronephrosis. Her chest x-ray is consistent with cardiomegaly and heart failure. IMPRESSION: This is a 77-year-old female patient with an episode of hypoglycemia and now appears to have acute renal failure and possibly acute on chronic heart failure. DISPOSITION: The patient will be admitted to observation. DIAGNOSES AND PLAN: 1. Hypoglycemia. The patient is currently stable with her glucose. We will hold her Lantus and her oral meds for now and we will place her on lispro sliding with Accu-Chek a.c. and h.s. Continue to monitor her for hypoglycemia. I suspect maybe her oral intake did not match the amount of medication she was taking. We will place her on a consistent carb diet with low sodium. 2. For her acute renal failure as stated above, she did have an ultrasound of the kidneys, which showed no hydro. She does take spironolactone and higher dose of torsemide. She is likely prerenal from her diabetics. We are pending a urine creatinine and urine sodium. She has already received 2 L of normal saline. We will recheck BNP later this evening and see if her creatinine is beginning to trend down, although I feel with what is likely her chronic heart failure, her BNP may increase. This will have to be monitored. I suspect her diuretic medications may need to be adjusted at discharge. 3. For her atrial fibrillation and heart failure, she is currently on Eliquis and metoprolol. These will be continued. Again, the BNP is not impressive at 139. We will repeat her BNP tonight and order an echocardiogram. Per her history, she does have dilated cardiomyopathy. I think it would be prudent to do an echo and evaluate for ejection fraction and see where she is out with this. She does see Dr. Michel at [facility] from [facility] that she saw him about 3 months ago and did not have any changes to her medications at that time. 4. Cellulitis. Appears to be some chronic cellulitis of the lower extremities for 3 weeks, she has been treating at home with oral antibiotics. She cannot remember which antibiotic she was on. It does appear that she was on clindamycin at one point. She does not appear acutely infected. Right now, her CRP is mildly elevated. She has no fevers or chills and she does not look toxic. I think it would be warranted to have Wound Care consult and have the wound care nurse evaluate her legs and see if there are some additional interventions to improve the status of her lower extremities. The patient states she did have an ultrasound of her lower extremities a couple of weeks ago , which were negative for deep venous thrombosis. 5. For history of hypertension, her blood pressure is on the low side right now with a systolic of 102. We will hold her ROSA, also in light of her acute renal failure. Continue her metoprolol and monitor her closely. 6. For her peripheral vascular disease and neuropathy, she will be continued on Lyrica. 7. For hyperlipidemia, she is currently on statin. This will be continued. 8. For DVT prophylaxis, the patient is already on Eliquis. 9. Diet consists of carb, heart healthy, low sodium as tolerated. 10. Ambulation. She can be out of bed as tolerated. 11. Disposition. She is admitted to observation. This plan of care has been discussed with Dr. Mariola Walton, my attending for today, who is in agreement with the plan. FELECIA STOREY, [employer] [id number] #: [id number] KIEAR
--- NOTE | 2018-02-06 12:33 | ECHO ---
Patient: KENNEDI LION [facility] Rec#: [id number] : 1940 Date: 02/06/2018 Age: 77y Height: 163 cm / 64.2 in Weight: 136.1 kg / 300.0 lbs Sex: F BSA: 2.33 Room#: -10 Admit Date#: 02/06/2018 Type: Inpatient Referring: Virginie Farias Reading: Prakash Manrique MD Invisible Braces Orthodontist: Paula CharlesCHAUNCEY CC: Damaso Sylvester MD Transthoracic Echocardiogram Indication: Congestive heart failure BP: 102/59 HR: 58 Rhythm: A-Fib Findings History: CAD, HLD, HTN, DM, hiatal hernia, MO. Technical Comments: The study is technically limited due to poor apical windows. Completed at 1130. Left Ventricle: The left ventricular chamber size is normal. There is no left ventricular hypertrophy. There is global hypokinesis of the left ventricle with minor regional variation. There is mild to moderately decreased left ventricular systolic function. The estimated ejection fraction is 40-45%. There is septal flattening of the interventricular septum consistent with right ventricular volume or pressure overload. The assessment of diastolic function is non-diagnostic. Left Atrium: The left atrium is severely dilated. Right Ventricle: Moderator Band present. The right ventricle is moderately dilated. The right ventricular global systolic function is low normal. Right Atrium: The right atrial cavity size is severely dilated. Aortic Valve: The aortic valve is trileaflet. The aortic valve leaflets are mildly thickened. There is a trace of aortic regurgitation. There is no evidence of aortic stenosis. Mitral Valve: There is mitral annular calcification. The mitral valve leaflets are mildly thickened. There is mild to moderate mitral regurgitation. There is no evidence of mitral stenosis. Tricuspid Valve: The tricuspid valve leaflets are mildly thickened. There is severe tricuspid regurgitation. The right ventricular systolic pressure is estimated at 53 mmHg. There is evidence of moderate pulmonary hypertension. There is no tricuspid stenosis. Pulmonic Valve: The pulmonic valve appears normal. There is trace to mild pulmonic regurgitation. There is no pulmonic stenosis. Pericardium: There is no significant pericardial effusion. A pericardial fat pad is visualized. Aorta: There is no dilatation of the ascending aorta. There is no dilatation of the aortic arch. The aortic root is normal in size. Pulmonary Artery: The main pulmonary artery appears normal. Venous: The inferior vena cava is dilated. There is less than 50% respiratory change in the inferior vena cava dimension. Contrast: Definity was used to optimize study. 2.5 mL of diluted definity was utilized. Intravenous contrast was used to enhance endocardial border definition. Summary: There was not any prior study for comparison. Conclusions There is global hypokinesis of the left ventricle with minor regional variation. There is mild to moderately decreased left ventricular systolic function. The estimated ejection fraction is 40-45%. The right ventricular global systolic function is low normal. There is a trace of aortic regurgitation. There is mild to moderate mitral regurgitation. There is severe tricuspid regurgitation. The right ventricular systolic pressure is estimated at 53 mmHg. There is evidence of moderate pulmonary hypertension. There is no significant pericardial effusion. Measurements Name Value Normal Range RVIDd (AP) 2D 4.7 cm (0.9 - 2.6) RVDdMajor (2D) 5.3 cm (2.2 - 4.4) RAd ISD 4CH 6.7 cm (3.4 - 4.9) RA (A4C)W 5.8 cm (2.9 - 4.6) IVSd (2D) 1 cm (0.6 - 1) LVPWd (2D) 1 cm (0.6 - 1) LVIDd (2D) 5.1 cm (3.6 - 5.4) LVIDs (2D) 4.3 cm - LV FS (2D) 17 % (25 - 45) Aortic Annulus 2.1 cm (1.4 - 2.6) Ao root diameter (2D) 3.3 cm (2.1 - 3.5) Ascending Ao 3.1 cm (2.1 - 3.4) Aortic arch 2.5 cm (1.8 - 3.4) LA dimension (AP) 2D 5.1 cm (2.3 - 3.8) LAd ISD 4CH 7 cm (2.9 - 5.3) LA ISD 4CH W 5.6 cm (2.5 - 4.5) Name Value Normal Range LA ESV BP (A/L) index 65 ml/m2 - Name Value Normal Range MV E-wave Vmax 0.9 m/sec - MV deceleration time 218 msec - LV septal e' Vmax 0.08 m/sec - LV lateral e' Vmax 0.09 m/sec - Name Value Normal Range AV Vmax 1.2 m/sec - AV VTI 30.6 cm - AV peak gradient 6 mmHg - AV mean gradient 4 mmHg - LVOT Vmax 0.6 m/sec - LVOT VTI 14.1 cm - LVOT peak gradient 2 mmHg - LVOT mean gradient 1 mmHg - RAFAEL Vmax 0.6 m/sec - Name Value Normal Range TR Vmax 3.1 m/sec - TR peak gradient 38 mmHg - RAP 15 mmHg - RVSP 53 mmHg - IVC diameter 3.6 cm - Name Value Normal Range PV Vmax 0.8 m/sec - PV peak gradient 3 mmHg -
[2018-02-06] MEDS: Insulin LISPRO* 1 UNITS UNIT SUBCUT SCH ×3 (12:35→20:35)
[2018-02-06] MEDS: Pregabalin CAP(*) 50 MG PO SCH ×2 (13:24→20:37)
[2018-02-06 17:47] LABS: EGFR Non-African American 24.4 (>60)
[2018-02-06] MEDS: Apixaban* 5 MG TAB PO SCH (20:37)
[2018-02-06] MEDS: Pramipexole TAB* 0.5 MG PO SCH (20:37)
--- NOTE | 2018-02-07 04:34 | PN ---
Progress Note - Progress Note Date of Service: 02/07/18 Note: Paged for 3 second pause - will d/c metoprolol for now
[2018-02-07 06:26] LABS: Hematocrit 33 % (35-47); Hemoglobin 10.9 g/dl (12.0-16.0); Mean Corpuscular HGB Conc 33 g/dl (31-36); Mean Corpuscular Hemoglobin 28 pg (27-31); Mean Corpuscular Volume 85 fL (80-97); Mean Platelet Volume 7.7 um3 (7.4-10.4); Platelet Count 160 10^3/ul (150-450); Red Blood Count 3.89 10^6/ul (4.00-5.40); Red Cell Distribution Width 19 % (10.5-15); White Blood Count 5.2 10^3/ul (3.5-10.8)
[2018-02-07 06:41] LABS: EGFR Non-African American 34.3 (>60)
[2018-02-07] MEDS ORDERED: NS 0.9% 1000 ML* 1,000 ML IV ONE (08:24)
[2018-02-07] MEDS: Insulin LISPRO* 1 UNITS UNIT SUBCUT SCH ×3 (08:33→19:51)
[2018-02-07] MEDS ORDERED: NS 0.9% 500 ML* 500 ML IV ONE (08:38)
--- NOTE | 2018-02-07 08:42 | PN ---
Subjective Date of Service: 02/07/18 Interval History: HOSPITALIST PROGRESS NOTE Patient seen and examined at bedside. Care reviewed and d/w Maria Isabel Lopez RN. She offers no complaints today. Denies CP, palpitations, dyspnea. Appetite is good and she's eating her breakfast with gusto. Family History: Unchanged from Admission Social History: Unchanged from Admission Past Medical History: Unchanged from Admission Objective Active Medications: Apixaban (Eliquis*) 5 mg PO BID [facility] Last Admin: 02/06/18 20:37 Dose: 5 mg Atorvastatin Calcium (Lipitor*) 40 mg PO DAILY [facility] Dextrose (D50w Syringe 50 Ml*) 12.5 gm IV PUSH .FOR FS < 60 - SS PRN PRN Reason: FS < 60 Dextrose (D5w 500 Ml Bag*) 500 mls @ 75 mls/hr IV PER RATE [facility] Sodium Chloride (Ns 0.9% 500 Ml*) 500 mls @ 1,000 mls/hr IV ONCE ONE Stop: 02/07/18 09:07 Multivitamins/Minerals (Theragran/Minerals Tab*) 1 tab PO DAILY [facility] Pramipexole Dihydrochloride (Mirapex Tab*) 1 mg PO BEDTIME [facility] Last Admin: 02/06/18 20:37 Dose: 1 mg Pregabalin (Lyrica Cap(*)) 50 mg PO TID [facility] Last Admin: 02/06/18 20:37 Dose: 50 mg Vital Signs - 8 hr 02/07/18 02/07/18 02/07/18 03:54 07:35 07:52 Temperature 97.7 F 96.2 F Pulse Rate 65 59 Respiratory 20 20 Rate Blood Pressure 128/71 96/59 98/60 (mmHg) O2 Sat by Pulse 98 99 Oximetry Oxygen Devices in Use Now: Nasal Cannula - 2 liters Appearance: Pleasant morbid obese lady sitting up in bed in NAD. Eyes: No Scleral Icterus Ears/Nose/Mouth/Throat: Mucous Membranes Moist Neck: Trachea Midline Respiratory: Symmetrical Chest Expansion and Respiratory Effort, - - BS+ bilaterally with bibasilar crackles Cardiovascular: RRR - Normal S1 and S2 Abdominal: NL Sounds; No Tenderness; No Distention - obese Extremities: - - Mild LE edema, dry skin Neurological: Alert and Oriented x 3, NL Muscle Strength and Tone Result Diagrams: 02/07/18 05:52 02/07/18 09:58 Assess/Plan/Problems-Billing Assessment: Mrs Kaufman is a 77yo F with PMH of morbid obesity with BMI 53, Afib, LBBB, uterine CA (s/p RAYMOND/BSO 1989), HTN, HLD, restless leg syndrome, dilated CMP, systolic CHF with EF 43%, type 2 DM, peripheral vascular disease, recurrent cellulitis and LE wounds, retinal vein occlusion, JOSHUA, vitamin B12 deficiency, mitral regurgitation, who presented to ED with hypoglycemia and REILLY. - Patient Problems (1) Hypoglycemia Comment: - Still hypoglycemic this AM - will check FS q2h and if hypoglycemia persists, will start D5W infusion. - Secondary to long acting glimepiride use in the setting of REILLY. - Also on Lantus and acarbose as outpatient - all on hold for now. (2) REILLY (acute kidney injury) Comment: - Pre-renal in the setting of higher diuretic dose. - As per records from [place], creatinine 01/24 was 0.8. Her Torsemide was increased to 20mg BID due to worsening LE edema. Last visit 01/31/18 she was advised to continue Torsemide BID. - Continue IVF and monitor renal function. - Renal US/CT abdome negative for hydronephrosis. (3) Systolic CHF Comment: - Last echo from [place] shows EF 43% in 2015, echo done today shows EF 40-45%. - Stable at this time, but need to monitor closely as she'll be receiving IVF. - Lisinopril, Torsemide, and Aldactone on hold for now, but should be resumed when renal function improved. (4) Pneumonia Comment: - CT chest showed RUL infiltrate - will start Ceftriaxone/Zithromax. - Check Legionella and Pneumococcal Ag. (5) Afib Comment: - Rate is controlled, but she had sinus pauses up to 3 seconds and hypotension. Metoprolol on hold for now, but as she receives IVF and her BP trends up, will be able to resume it. - Continue Eliquis. (6) DVT prophylaxis Comment: - Eliquis. (7) Restless leg syndrome Comment: - Continue Pramipexole. (8) Full code status Status and Disposition: Change to inpatient.
[2018-02-07] MEDS ORDERED: D5W 500 ML BAG* 500 ML IV SCH (09:00)
[2018-02-07] MEDS ORDERED: Lisinopril TAB* 5 MG PO SCH (09:00)
[2018-02-07] MEDS ORDERED: Metoprolol Succinate XL TAB* 50 MG PO SCH ×2 (09:00)
[2018-02-07] MEDS ORDERED: Metoprolol Succinate XL TAB* 100 MG PO SCH (09:00)
[2018-02-07] MEDS: Multivitamins/Minerals TAB PO SCH (09:11)
[2018-02-07] MEDS: Apixaban* 5 MG TAB PO SCH ×2 (09:11→21:34)
[2018-02-07] MEDS: Pregabalin CAP(*) 50 MG PO SCH ×3 (09:11→21:34)
[2018-02-07] MEDS: Atorvastatin* 40 MG TAB PO SCH (09:11)
[2018-02-07 10:21] LABS: EGFR Non-African American 37.8 (>60)
--- NOTE | 2018-02-07 12:01 | RAD ---
INDICATION: Hypoglycemia. Assess for source of infection. Acute renal failure. Heart failure. Post cholecystectomy, hysterectomy, gastroplasty, hernia repair. COMPARISON: February 06, 2018 chest radiograph and May 05, [address] TECHNIQUE: Multidetector CT images were obtained from the lung apices to the ischial tuberosities without contrast. Assessment of the viscera limited without contrast. CHEST REPORT: Moderate patchy alveolar consolidation at the RIGHT upper lobe. Mild subsegmental atelectasis at the LEFT upper lobe and dependent lung bases. Thickened peripheral interlobular septa at the mid to lower lung zones. Negative for pleural effusions or pneumothorax. Cardiomegaly. Negative for pericardial effusion. Normal diameter thoracic aorta with mild calcific plaque. 2.9 x 2.2 x 2.1 cm hypodense nodule projects posteriorly from the RIGHT thyroid lobe. Negative for thoracic lymphadenopathy based on short axis size criteria. Negative for suspicious thoracic osseous lesions. CHEST IMPRESSION: #. RIGHT upper lobe pneumonia. #. Mild interstitial pulmonary edema. #. Cardiomegaly. #. Incidental RIGHT thyroid nodule. Consider nonemergent follow-up thyroid ultrasound for further assessment. ABDOMEN PELVIS REPORT: LIVER / GALLBLADDER / PANCREAS / SPLEEN: Post cholecystectomy. Negative for biliary dilatation. Unremarkable unenhanced liver. Moderate atrophy of the pancreas without suspicious CT finding. Unremarkable spleen. ALIMENTARY TRACT: Postsurgical change of gastroplasty as on the prior exam. Mild distention of the gastric body and antrum distal to the staple line with air liquid fluid stuff level. No CT abnormality of the small bowel or diminutive infra cecal appendix. Moderately severe diverticulosis of the colon without findings of acute diverticulitis. Negative for ascites, free air, hernias. MESENTERIC: Unremarkable. ADRENAL / GENITOURINARY: Normal adrenal glands. Few small exophytic cortical lesions of the kidneys unchanged from the 2015 exam without concern. Negative for nephrolithiasis or hydronephrosis. No suspicious finding along the course of the nondilated ureters or at the partially distended urinary bladder. Post hysterectomy. Unremarkable adnexal regions. RETROPERITONEAL: Negative for lymphadenopathy. VASCULAR: Negative for aneurysm of the abdominal aorta or iliac arteries. Physiologic distention of the IVC. BONES: Lumbar sacral spine degenerative spondylosis and facet joint osteoarthritis. No suspicious focal osseous lesions. Negative for fracture. SOFT TISSUE: Unremarkable. ABDOMEN PELVIS IMPRESSION: #. No abdominal pelvic inflammatory process evident within limits of noncontrast CT.
[2018-02-07] MEDS: cefTRIAXone(*) 1 GM in NS 0.9% 50 ML* 50 ML IVPB SCH (13:32)
[2018-02-07] MEDS: Azithromycin IV(*) 500 MG in NS 0.9% 250 ML* 250 ML IVPB SCH (14:19)
[2018-02-07 14:22] LABS: EGFR Non-African American 42.9 (>60)
[2018-02-07] MEDS ORDERED: Dextrose 50% Syringe 50 ML* 25 GM/50 ML SYRINGE IV PUSH PRN (15:39)
[2018-02-07] MEDS ORDERED: Furosemide IV* 10 MG/ML 2 ML VIAL (20 MG) IV ONE (15:40)
[2018-02-07] MEDS ORDERED: Metoprolol Tartrate TAB* 25 MG PO ONE (15:40)
[2018-02-07] MEDS ORDERED: Sodium Polystyrene ORAL.SOL* 15 GM/60 ML BTL PO ONE (16:36)
[2018-02-07] MEDS ORDERED: Insulin REGULAR(*) 1 UNITS UNIT IV PUSH ONE (16:37)
[2018-02-07] MEDS ORDERED: Calcium Gluconate INJ* 1 GM in NS 0.9% 50 ML* 50 ML IVPB ONE (16:37)
[2018-02-07] MEDS ORDERED: Dextrose 50% Syringe 50 ML* 25 GM/50 ML SYRINGE IV PUSH ONE (16:38)
[2018-02-07 20:48] LABS: EGFR Non-African American 46.8 (>60)
[2018-02-07] MEDS: Pramipexole TAB* 0.5 MG PO SCH (21:34)
[2018-02-08 06:13] LABS: ABS Basophils 0 10^3/ul (0-0.2); ABS Eosinophils 0.4 10^3/ul (0-0.6); ABS Lymphocytes 0.6 10^3/ul (1.0-4.8); ABS Monocytes 0.4 10^3/ul (0-0.8); ABS Neutrophils 3.4 10^3/ul (1.5-7.7); ABS Nucleated RBC 0 10^3/ul; Eosinophil % 7.7 % (0-6); Hematocrit 35 % (35-47); Hemoglobin 11.1 g/dl (12.0-16.0); Lymphocyte % 12.2 % (25-47); Mean Corpuscular HGB Conc 32 g/dl (31-36); Mean Corpuscular Hemoglobin 28 pg (27-31); Mean Corpuscular Volume 86 fL (80-97); Mean Platelet Volume 7.8 um3 (7.4-10.4); Nucleated Red Blood Cells % 0.1; Platelet Count 169 10^3/ul (150-450); Red Blood Count 4.03 10^6/ul (4.00-5.40); Red Cell Distribution Width 19 % (10.5-15); White Blood Count 4.8 10^3/ul (3.5-10.8)
[2018-02-08 06:29] LABS: EGFR Non-African American 60.9 (>60)
[2018-02-08] MEDS: Insulin LISPRO* 1 UNITS UNIT SUBCUT SCH ×4 (08:05→21:26)
[2018-02-08] MEDS: Multivitamins/Minerals TAB PO SCH (08:15)
[2018-02-08] MEDS: Atorvastatin* 40 MG TAB PO SCH (08:15)
[2018-02-08] MEDS: Apixaban* 5 MG TAB PO SCH ×2 (08:15→21:25)
[2018-02-08] MEDS: Pregabalin CAP(*) 50 MG PO SCH ×3 (08:16→21:26)
[2018-02-08] MEDS ORDERED: Sodium Polystyrene ORAL.SOL* 15 GM/60 ML BTL PO ONE (09:21)
--- NOTE | 2018-02-08 09:54 | PN ---
Subjective Date of Service: 02/08/18 Interval History: pt feels well, but BG was 68 this AM. Legs with edema -chronic Family History: Unchanged from Admission Social History: Unchanged from Admission Past Medical History: Unchanged from Admission Objective Active Medications: Apixaban (Eliquis*) 5 mg PO BID [facility] Last Admin: 02/08/18 08:15 Dose: 5 mg Atorvastatin Calcium (Lipitor*) 40 mg PO DAILY [facility] Last Admin: 02/08/18 08:15 Dose: 40 mg Dextrose (D50w Syringe 50 Ml*) 12.5 gm IV PUSH .FOR FS < 60 - SS PRN PRN Reason: FS < 60 Dextrose (D50w Syringe 50 Ml*) 12.5 gm IV PUSH .FOR FS < 60 - SS PRN PRN Reason: FS < 60 Ceftriaxone Sodium 1 gm/ (Sodium Chloride) 50 mls @ 200 mls/hr IVPB Q24H [facility] Last Admin: 02/07/18 13:32 Dose: 200 mls/hr Azithromycin 500 mg/ Sodium (Chloride) 250 mls @ 250 mls/hr IVPB Q24H [facility] Last Admin: 02/07/18 14:19 Dose: 250 mls/hr Insulin Human Lispro (Humalog*) 0 units SUBCUT ACHS [facility]; Protocol Last Admin: 02/08/18 08:05 Dose: Not Given Multivitamins/Minerals (Theragran/Minerals Tab*) 1 tab PO DAILY [facility] Last Admin: 02/08/18 08:15 Dose: 1 tab Pramipexole Dihydrochloride (Mirapex Tab*) 1 mg PO BEDTIME [facility] Last Admin: 02/07/18 21:34 Dose: 1 mg Pregabalin (Lyrica Cap(*)) 50 mg PO TID [facility] Last Admin: 02/08/18 08:16 Dose: 50 mg Vital Signs - 8 hr 02/08/18 02/08/18 02/08/18 04:05 07:50 08:00 Temperature 97.2 F 97.4 F Pulse Rate 75 70 Respiratory 20 18 18 Rate Blood Pressure 117/63 117/58 (mmHg) O2 Sat by Pulse 100 96 Oximetry 02/08/18 08:16 Temperature Pulse Rate Respiratory 16 Rate Blood Pressure (mmHg) O2 Sat by Pulse Oximetry Oxygen Devices in Use Now: Nasal Cannula Appearance: 77 yo F , morbitly obese, in NAD, AAOx3 Eyes: No Scleral Icterus, PERRLA Ears/Nose/Mouth/Throat: NL Teeth, Lips, Gums, Mucous Membranes Moist Neck: NL Appearance and Movements; NL JVP, Trachea Midline Respiratory: Symmetrical Chest Expansion and Respiratory Effort, Clear to Auscultation Cardiovascular: - - irregular Abdominal: NL Sounds; No Tenderness; No Distention, No Hepatosplenomegaly Lymphatic: No Cervical Adenopathy Extremities: No Clubbing, Cyanosis, - - +2 pitting pedal edema with venous staiss changes/disoloration in b/l dital LE's, dry flaky skin Skin: No Nodules or Sclerosis Neurological: Alert and Oriented x 3, NL Muscle Strength and Tone Result Diagrams: 02/08/18 05:42 02/08/18 05:42 Microbiology and Other Data: Microbiology 02/07/18 10:23 Legionella Urinary Antigen - Final Urine Negative Legionella Antigen Streptococcus pneumoniae Ag Screen - Final Negative S. pneumo Antigen Assess/Plan/Problems-Billing Assessment: Mrs Kaufman is a 77yo F with PMH of morbid obesity with BMI 53, Afib, LBBB, uterine CA (s/p RAYMOND/BSO 1989), HTN, HLD, restless leg syndrome, dilated CMP, systolic CHF with EF 43%, type 2 DM, peripheral vascular disease, recurrent cellulitis and LE wounds, retinal vein occlusion, JOSHUA, vitamin B12 deficiency, mitral regurgitation, who presented to ED with hypoglycemia and REILLY. - Patient Problems (1) Hypoglycemia Comment: - Still hypoglycemic this AM , cont to monitor - Secondary to long acting glimepiride use in the setting of REILLY. - Also on Lantus and acarbose as outpatient - all on hold for now. (2) REILLY (acute kidney injury) Comment: - Pre-renal in the setting of higher diuretic dose.Resolved - As per records from [place], creatinine 01/24 was 0.8. Her Torsemide was increased to 20mg BID due to worsening LE edema. Last visit 01/31/18 she was advised to continue Torsemide BID. Off IVF. - Renal US/CT abdome negative for hydronephrosis. (3) Pneumonia Comment: - CT chest showed RUL infiltrate - will start Ceftriaxone/Zithromax. - Legionella and Pneumococcal Ag neg (4) Systolic CHF Comment: - Last echo from [place] shows EF 43% in 2016, echo done today shows EF 40-45%. - Stable at this time - Lisinopril, Torsemide, and Aldactone on hold for now, but should be resumed when renal function improved. (5) Afib Comment: - Rate is controlled, but she had sinus pauses up to 3 seconds and hypotension. Metoprolol on hold for now, but as she receives IVF and her BP trends up, will be able to resume it. - Continue Eliquis. (6) Restless leg syndrome Comment: - Continue Pramipexole. (7) DVT prophylaxis Comment: - Eliquis. Status and Disposition: inpatient.
[2018-02-08] MEDS: Metoprolol Succinate XL TAB* 100 MG PO SCH (10:24)
[2018-02-08] MEDS: cefTRIAXone(*) 1 GM in NS 0.9% 50 ML* 50 ML IVPB SCH (12:23)
[2018-02-08] MEDS ORDERED: Pneumococcal *Vac Polyvalent 0.5 ML VIAL IM ONE (13:00)
[2018-02-08] MEDS: Azithromycin IV(*) 500 MG in NS 0.9% 250 ML* 250 ML IVPB SCH (14:11)
[2018-02-08] MEDS: Pramipexole TAB* 0.5 MG PO SCH (21:26)
[2018-02-09 07:46] LABS: ABS Basophils 0 10^3/ul (0-0.2); ABS Eosinophils 0.3 10^3/ul (0-0.6); ABS Lymphocytes 0.9 10^3/ul (1.0-4.8); ABS Monocytes 0.4 10^3/ul (0-0.8); ABS Neutrophils 3.7 10^3/ul (1.5-7.7); ABS Nucleated RBC 0 10^3/ul; Eosinophil % 4.8 % (0-6); Hematocrit 35 % (35-47); Hemoglobin 11.4 g/dl (12.0-16.0); Lymphocyte % 17.5 % (25-47); Mean Corpuscular HGB Conc 33 g/dl (31-36); Mean Corpuscular Hemoglobin 28 pg (27-31); Mean Corpuscular Volume 86 fL (80-97); Mean Platelet Volume 7.8 um3 (7.4-10.4); Nucleated Red Blood Cells % 0.1; Platelet Count 166 10^3/ul (150-450); Red Blood Count 4.05 10^6/ul (4.00-5.40); Red Cell Distribution Width 20 % (10.5-15); White Blood Count 5.3 10^3/ul (3.5-10.8)
[2018-02-09 08:16] LABS: EGFR Non-African American 76.3 (>60)
[2018-02-09] MEDS: Metoprolol Succinate XL TAB* 100 MG PO SCH (09:06)
[2018-02-09] MEDS: Atorvastatin* 40 MG TAB PO SCH (09:06)
[2018-02-09] MEDS: Apixaban* 5 MG TAB PO SCH (09:06)
[2018-02-09] MEDS: Multivitamins/Minerals TAB PO SCH (09:06)
[2018-02-09] MEDS: Pregabalin CAP(*) 50 MG PO SCH (09:06)
[2018-02-09] MEDS: Insulin LISPRO* 1 UNITS UNIT SUBCUT SCH ×2 (09:07→15:29)
[2018-02-09] MEDS ORDERED: Insulin LISPRO* 1 UNITS UNIT SUBCUT ONE (11:50)
[2018-02-09] MEDS ORDERED: Glimepiride (NF) 2 MG TAB PO ONE (15:00)
[2018-02-09] MEDS: cefTRIAXone(*) 1 GM in NS 0.9% 50 ML* 50 ML IVPB SCH (15:30)
[2018-02-09] MEDS: Azithromycin IV(*) 500 MG in NS 0.9% 250 ML* 250 ML IVPB SCH (15:31)
[2018-02-09 15:55] VITALS: BP 114/63
--- NOTE | 2018-02-10 17:31 | DS ---
CC: Dr. Sylvester; Julius Leigh * DISCHARGE SUMMARY: DATE OF ADMISSION: 02/06/18 DATE OF DISCHARGE: 02/09/18 PRIMARY CARE PROVIDER: Dr. Sylvester. DISCHARGE DIAGNOSES: 1. Hypoglycemia in a patient with acute renal failure. 2. Acute renal failure likely due to overdiuresis. SECONDARY DIAGNOSES: 1. History of atrial fibrillation. 2. History of left bundle branch block. 3. History of uterine cancer. 4. Hypertension. 5. Restless legs syndrome. 6. Morbid obesity. 7. History of dilated cardiomyopathy. 8. Diabetes, type 2, insulin dependent. 9. Peripheral vascular disease. MEDICATIONS AT DISCHARGE: Include: 1. Glimepiride 1 mg daily. 2. Torsemide 20 mg daily. 3. Pramipexole 1 mg at the bedtime. 4. Lyrica 50 mg 3 times a day. 5. Eliquis 5 mg 2 times a day. 6. Metoprolol 100 mg daily. 7. Azithromycin 250 mg daily for 2 days total, then stop. 8. Vitamin B12 1000 mcg daily. 9. The patient should be on atorvastatin 40 mg daily at discharge. 10. Ferrous sulfate 325 mg daily. The patient was advised to stop Aldactone and lisinopril. LABORATORY DATA AND STUDIES PERFORMED DURING HOSPITAL STAY: On 02/09/18, white blood cell count of 5.3, hemoglobin of 11.4, hematocrit of 35, and platelets of 166. Sodium was 141, potassium 4.0, chloride 106, carbon dioxide 30, BUN 25, creatinine 0.74. Glucose level prior to discharge was 246 and 266 in 2 consecutive fingersticks. Urinalysis obtained at admission was unremarkable. CT of the abdomen and pelvis obtained on 02/07/18, impression: "Right upper lobe pneumonia and mild interstitial pulmonary edema. Cardiomegaly. Incidental right thyroid nodule. Consider followup thyroid ultrasound for further assessment. The thyroid nodule was hypodense, measured 2.9 x 2.2 x 2.1 cm. Abdomen and pelvis, impression: "No abdominal pelvic inflammatory process evidenced with limit of noncontrast CT." Renal ultrasound, impression: "Bilateral renal cysts with no hydronephrosis in either kidney." Transthoracic echocardiogram obtained on 02/06/18 showed EF of 40% to 45% with left atrium severely dilated. There was global hypokinesis of the left ventricle with minor regional variation. The right ventricle was also moderately dilated. There was [id number] mitral regurgitation and moderate pulmonary hypertension at 53 mmHg. The patient's urine creatinine was 47 and urine sodium was 20. HOSPITALIZATION COURSE: Nicole Kaufman is a 77-year-old female, who presented to the hospital after almost passing out with sugars in the 40s in the middle of the night. At that point, she was noted to be dehydrated with acute renal failure. Apparently, the patient's torsemide was recently increased to twice a day from once a day. The patient's CT of chest, abdomen, and pelvis showed positive pneumonia as mentioned above. Her C-reactive protein was 43 at admission. Her further infectious workup showed negative legionella antigen and Strep pneumo antigen. The patient was placed on ceftriaxone, azithromycin. She was placed on intravenous hydration and her SON inhibitor and Aldactone were held. She also transiently needed to be placed on the dextrose infusion due to persistent hypoglycemia likely due to glyburide use when in acute renal failure. Gradually her acute renal failure improved. The patient was hypoglycemic until the morning on 02/08/18 and later on, she went back to sugars in the 200s range. On the day of discharge, her glimepiride was restarted at the lower dose of 1 mg daily. Her torsemide was also restarted at 20 mg daily but her remaining lisinopril and Aldactone were held as well as all of the remaining glycemic agents including insulin Lantus. The patient was noted to have venous stasis and Son bandages were applied with good results. The patient was advised to elevate her legs whenever possible. In addition, the patient is recommend to follow up with her primary care provider in approximately 4 to 7 days. PHYSICAL EXAM AT THE TIME OF DISCHARGE: Blood pressure of 114/63, heart rate of 67 and regular, respiratory rate 16, oxygen saturation 94%, and temperature of 97.4. General: The patient is a very pleasant 77-year-old female, who is not in acute distress, obese. Alert, awake, and oriented x3. HEENT: Head, atraumatic and normocephalic. Eyes: Pupils are equal and reactive to light and accommodation. Oropharynx clear. Mucosa moist. Neck: Supple. No JVD. No bruits bilaterally. Cardiovascular: Irregularly irregular rhythm. No murmur. Respiratory: Clear to auscultation bilaterally. Abdomen: Soft, nontender. Bowel sounds present in all 4 quadrants. Extremities: There is +2 pitting pedal edema also up to bilateral calves. No clubbing or cyanosis noted. Neuro Evaluation: Speech clear. Cranial nerves II through XII grossly intact. Motor strength is 5/5 bilaterally. Please note that this is a short summary of the patient's hospital stay. Please refer to further medical records for details. TIME SPENT: Approximately 45 minutes was spent on the patient's discharge. [id number]/[facility] #: [id number] MTDD
== END 2018-02-09 16:37 | disposition home health service (06) | DRG 682 ==
LOC: ED 06:16 → MEDTELE 09:48 → OBSVTOIN 02-07 08:39
PROVIDERS: ADMIT Internal Medicine; ATTEND Internal Medicine
DX: N17.9 Acute kidney failure, unspecified (principal); J18.9 Pneumonia, unspecified organism; Z68.43 Body mass index [BMI] 50.0-59.9, adult; I42.9 Cardiomyopathy, unspecified; H34.8192 Central retinal vein occlusion, unspecified eye, stable; I50.22 Chronic systolic (congestive) heart failure; E11.649 Type 2 diabetes mellitus with hypoglycemia without coma; I25.10 Atherosclerotic heart disease of native coronary artery without angina pectoris; G47.33 Obstructive sleep apnea (adult) (pediatric); M19.90 Unspecified osteoarthritis, unspecified site; E86.0 Dehydration; I34.0 Nonrheumatic mitral (valve) insufficiency; E11.40 Type 2 diabetes mellitus with diabetic neuropathy, unspecified; E04.1 Nontoxic single thyroid nodule; E78.5 Hyperlipidemia, unspecified; I11.0 Hypertensive heart disease with heart failure; E66.9 Obesity, unspecified; Z96.652 Presence of left artificial knee joint; I48.91 Unspecified atrial fibrillation; T50.1X5A Adverse effect of loop [high-ceiling] diuretics, initial encounter; Z90.722 Acquired absence of ovaries, bilateral; I87.8 Other specified disorders of veins; N28.1 Cyst of kidney, acquired; I44.7 Left bundle-branch block, unspecified; T38.3X5A Adverse effect of insulin and oral hypoglycemic [antidiabetic] drugs, initial encounter; I27.20 Pulmonary hypertension, unspecified; G25.81 Restless legs syndrome; I95.9 Hypotension, unspecified; E11.51 Type 2 diabetes mellitus with diabetic peripheral angiopathy without gangrene; Z85.42 Personal history of malignant neoplasm of other parts of uterus; Z79.84 Long term (current) use of oral hypoglycemic drugs; Z90.49 Acquired absence of other specified parts of digestive tract; Z90.710 Acquired absence of both cervix and uterus; Z83.3 Family history of diabetes mellitus; Z87.442 Personal history of urinary calculi; Y92.009 Unspecified place in unspecified non-institutional (private) residence as the place of occurrence of the external cause; Z79.01 Long term (current) use of anticoagulants; Z23 Encounter for immunization
CPT/HCPCS: 36415; 71046; 71250; 74176; 76775; 80048; 80053; 80076; 81003; 82570; 83605; 83880; 84300; 84443; 85025; 85027; 86140; 87899; 90732; 93005; 93306; 99285; A9270-GY; C8929; G0378; J0456; J0610; J0696; J1940

== ENCOUNTER 2018-06-27 10:16 | Inpatient (IN) | payer MEDICARE, BC ==
[2018-06-27] MEDS ORDERED: Albuterol/Ipratropium NEB.SOL* Albuterol 2.5 MG/Ipratropium 0.5 MG 3 ML INH ONE (10:53)
[2018-06-27] MEDS ORDERED: NS 0.9% 1000 ML** 1,000 ML IV ONE ×2 (10:53→12:59)
[2018-06-27] MEDS ORDERED: methylPREDNISolone 125 MG* 2 ML VIAL IV ONE (10:53)
--- NOTE | 2018-06-27 11:05 | ED ---
Respiratory - HPI Summary HPI Summary: A 78 y/o female presents to [facility] with a chief complaint of possible pneumonia starting the week of 06/18/18. Per triage note, Pt sent here from doctors office for possible pneumonia. Pt has had cough and chest congestion, feeling very weak and lethargic for 3 days. Pt in triage has HR of 120-130's, O2 85% RA. At triage the patient rated her pain as a 0/10 in severity. She c/o SOB with a cough but denies Chest pain or palpitations. She has a Hx of COPD. The patient was unsure if she had a fever, as she never took her temperature. Temperature of 100.5 noted at triage. She reports that she has not yet been tested for the flu. - History of Current Complaint Chief Complaint: EDFluSymptoms Stated Complaint: COUGH/CHEST DISCOMFORT/ Time Seen by Provider: 06/27/18 10:37 Hx Obtained From: Patient Onset/Duration: Sudden Onset, Lasting Days, Still Present Timing: Constant Initial Severity: Mild Current Severity: Mild Pain Intensity: 0 - out of 10 Character: Cough (Nonproductive), Dyspnea at Rest Aggravating Factor(s): Nothing Alleviating Factor(s): Nothing Associated Signs and Symptoms: Fever, SOB - Allergy/Home Medications Allergies/Adverse Reactions: Allergies Allergy/AdvReac Type Severity Reaction Status Date / Time No Known Allergies Allergy Verified 06/27/18 10:35 Home Medications: Home Medications Apixaban* [Eliquis*] 5 mg PO BID 06/27/18 [History Confirmed 06/27/18] Atorvastatin* [Lipitor*] 40 mg PO QPM 06/27/18 [History Confirmed 06/27/18] Cyanocobalamin (Vitamin B-12) [Vitamin B-12] 1,000 mcg SL DAILY 06/27/18 [ History Confirmed 06/27/18] Insulin Glargine,Hum.rec.anlog [Lantus Solostar 5x3 ML PENS] 70 units SUBCUT DAILY 06/27/18 [History Confirmed 06/27/18] Metoprolol Succinate XL TAB* [Toprol XL TAB*] 50 mg PO DAILY 06/27/18 [History Confirmed 06/27/18] Pramipexole TAB* [Mirapex TAB*] 1 mg PO BEDTIME 06/27/18 [History Confirmed 10/08] Pregabalin CAP(*) [Lyrica CAP(*)] 50 mg PO TID 06/27/18 [History Confirmed 06/27] Spironolactone TAB* [Aldactone TAB*] 25 mg PO DAILY 06/27/18 [History Confirmed 06/27/18] Torsemide TAB* [Demadex*] 20 mg PO BID 06/27/18 [History Confirmed 06/27/18] PMH/Surg Hx/FS Hx/Imm Hx Endocrine/Hematology History: Reports: Hx Diabetes, Hx Anemia Cardiovascular History: Reports: Hx Coronary Artery Disease, Hx Hypercholesterolemia, Hx Hypertension Respiratory History: Reports: Hx Chronic Obstructive Pulmonary Disease (COPD) GI History: Reports: Hx Hiatal Hernia History: Reports: Hx Kidney Stones Denies: Hx Kidney Infection, Hx Renal Disease Musculoskeletal History: Reports: Hx Arthritis, Other Musculoskeletal History - shoulder knee surgery Sensory History: Reports: Hx Contacts or Glasses Denies: Hx Hearing Aid Opthamlomology History: Reports: Hx Contacts or Glasses - Cancer History Cancer Type, Location and Year: Uterine CA initial dx 1989 - Surgical History Surgery Procedure, Year, and Place: [place], hysterectomy hernia repair gastroplasty Hx Anesthesia Reactions: No - Immunization History Immunizations Up to Date: Yes Infectious Disease History: No Infectious Disease History: Denies: Traveled Outside the [place] in Last 30 Days - Family History Known Family History: Positive: Diabetes Negative: Renal Disease - Social History Alcohol Use: Rare Hx Substance Use: No Substance Use Type: Reports: None Hx Tobacco Use: No Smoking Status (MU): Never Smoked Tobacco Have You Smoked in the Last Year: No Review of Systems Positive: Fever Negative: Palpitations, Chest Pain Positive: Shortness Of Breath, Cough Neurological: Other - positive: lethargic Positive: Weakness All Other Systems Reviewed And Are Negative: Yes Physical Exam - Summary Physical Exam Summary: VITAL SIGNS: Reviewed. GENERAL: Patient is a ill-appearing and nourished FEMALE who is lying comfortable in the stretcher. Patient is not in any acute respiratory distress. She is able to speak full sentences. HEAD AND FACE: No signs of trauma. No ecchymosis, hematomas or skull depressions. No sinus tenderness. EYES: PERRLA, EOMI x 2, No injected conjunctiva, no nystagmus. EARS: Hearing grossly intact. Ear canals and tympanic membranes are within normal limits. MOUTH: Oropharynx within normal limits. NECK: Supple, trachea is midline, no adenopathy, no JVD, no carotid bruit, no c- spine tenderness, neck with full ROM. CHEST: Symmetric, no tenderness at palpation LUNGS: Decreased breath sounds and wheezing and crackles in both sides of the lungs. CVS: Regular rate and rhythm, S1 and S2 present, no murmurs or gallops appreciated. ABDOMEN: Soft, non-tender. No signs of distention. No rebound no guarding, and no masses palpated. Bowel sounds are normal. EXTREMITIES: FROM in all major joints, no edema, no cyanosis or clubbing. NEURO: Alert and oriented x 3. No acute neurological deficits. Speech is normal and follows commands. SKIN: Dry and warm Triage Information Reviewed: Yes Vital Signs On Initial Exam: Initial Vitals Temp Pulse Resp BP Pulse Ox 100.5 F 130 20 103/79 85 06/27/18 10:30 06/27/18 10:30 06/27/18 10:30 06/27/18 10:30 06/27/18 10:30 Vital Signs Reviewed: Yes Diagnostics - Vital Signs Vital Signs Temp Pulse Resp BP Pulse Ox 06/27/18 10:30 100.5 F 130 20 103/79 85 - Laboratory Result Diagrams: 06/27/18 10:52 06/27/18 10:47 Lab Statement: Any lab studies that have been ordered have been reviewed, and results considered in the medical decision making process. - Radiology CXR Radiology Interpretation Completed By: Radiologist Summary of Radiographic Findings: The constellation of findings is suspicious for bronchopneumonia superimposed on. chronic obstructive pulmonary disease. ED physician has reviewed this imaging report. - EKG 10:54 Cardiac Rate: Other Rate - Atrial Fibrillation at 119 bpm EKG Rhythm: Atrial Fibrillation EKG Comparison: No Significant Change Summary of EKG Findings: EKG at 10:54 showed Atrial Fibrillation at 119 bpm, similar to previous EKG done 02/06/18. Re-Evaluation - Re-Evaluation First Eval Re-Evaluation Time: 13:00 Change: Improved Comment: Patient is feeling better. Discussed plan for admission. Disposition - Course Assessment/Plan: Blood work without any significant abnormality except for glucose of 101, total bili is 1.2, alkaline phosphatase 172, troponin 0.05, CRP is 60.48 and BNP is 288. Troponin is 0.05 and is at her baseline. The patient has productive cough, shortness of breath, she is tachycardic I believe that the patient has pneumonia. Therefore I started the patient Rocephin IV fluids. The patient is also wheezing and she has history of COPD. The patient was given IV fluids, Solu-Medrol and Decadron. At this point the patient is feeling better. Chest x-ray impression: The constellation of findings and suspicions up with bronchopneumonia superimposed on chronic instructed pulmonary disease. The patients heart rate has increased to the 130 -140 bpm. The patient is in atrial fibrillation with RVR therefore the patient was given Cardizem 10 mg IV. Patient was also given azithromycin for the bronchial pneumonia. At this point the patient is feeling better. I discussed my physical exam and findings with Dr. Bowens from the hospitalist services who accepted the patient for admission. The patient is feeling better, she is more stable and will be admitted to the medicine services. - Differential Dx - Cardiopulmonary Differential Diagnoses - Cardiopulmonary: Bronchitis, CAD, CHF, Influenza, Other - [place] - Diagnoses Provider Diagnoses: Bronchopneumonia, Atrial fibrillation with RVR, COPD (chronic obstructive pulmonary disease) - Physician Notifications Discussed Care Of Patient With: Andrew Bowens Time Discussed With Above Provider: 12:55 Instructed by Provider To: Admit As Inpatient - Critical Care Time Critical Care Time: 75-104 min Discharge - Sign-Out/Discharge Documenting (check all that apply): Patient Departure - admit Patient Received Moderate/Deep Sedation with Procedure: No - Discharge Plan Condition: Fair Disposition: ADMITTED TO [facility] - Billing Disposition and Condition Condition: FAIR Disposition: Admitted to [facility] - Attestation Statements Document Initiated by Scribe: Yes Documenting Scribe: Heladio Brennan Provider For Whom Yulia is Documenting (Include Credential): Vinay Gunn MD Scribe Attestation: I, Heladio Brennan, scribed for Vinay Gunn MD on 06/27/18 at 2115. Scribe Documentation Reviewed: Yes Provider Attestation: The documentation as recorded by the Heladio henley accurately reflects the service I personally performed and the decisions made by me, Vinay Gunn MD Status of Scribe Document: Viewed
[2018-06-27 11:10] LABS: ABS Basophils 0 10^3/ul (0-0.2); ABS Eosinophils 0 10^3/ul (0-0.6); ABS Lymphocytes 0.6 10^3/ul (1.0-4.8); ABS Monocytes 0.5 10^3/ul (0-0.8); ABS Neutrophils 6.4 10^3/ul (1.5-7.7); ABS Nucleated RBC 0 10^3/ul; Eosinophil % 0.1 %; Hematocrit 45 % (35-47); Hemoglobin 14.4 g/dl (12.0-16.0); Lymphocyte % 8.4 %; Mean Corpuscular HGB Conc 32 g/dl (31-36); Mean Corpuscular Hemoglobin 28 pg (27-31); Mean Corpuscular Volume 85 fL (80-97); Mean Platelet Volume 8.4 fL (7.4-10.4); Nucleated Red Blood Cells % 0.1; Platelet Count 152 10^3/ul (150-450); Red Blood Count 5.22 10^6/ul (4.00-5.40); Red Cell Distribution Width 19 % (10.5-15); White Blood Count 7.6 10^3/ul (3.5-10.8)
[2018-06-27 11:45] LABS: Albumin 3.9 g/dL (3.2-5.2); C Reactive Protein 60.48 mg/L (<8.01); Calcium 9.7 mg/dL (8.6-10.3); EGFR African American 68.2 (>60); EGFR Non-African American 56.4 (>60); Globulin 3.8 g/dL (2-4); Potassium 4.1 mmol/L (3.5-5.0); Total Bilirubin 1.2 mg/dL (0.2-1.0); Total Protein 7.7 g/dL (6.4-8.9)
[2018-06-27 11:48] LABS: CKMB ng/mL 2.5 ng/mL (0.6-6.3)
[2018-06-27] MEDS ORDERED: cefTRIAXone(*) 1 GM in NS 0.9% 50 ML* 50 ML IVPB ONE (11:52)
[2018-06-27 11:53] LABS: Troponin I 0.05 ng/mL (<0.04)
[2018-06-27 12:27] LABS: Influenza A Molecular NEGATIVE (Negative); Influenza B Molecular NEGATIVE (Negative)
[2018-06-27] MEDS ORDERED: Diltiazem IV* 5 MG/ML 5 ML VIAL (for loading dose/IV Push) (25 MG) IV SLOW PU ONE ×2 (12:59→17:16)
[2018-06-27] MEDS ORDERED: Azithromycin IV(*) 500 MG in NS 0.9% 250 ML* 250 ML IVPB ONE (13:03)
[2018-06-27 13:37] LABS: Urine Appearance Cloudy; Urine Bacteria 3+ (Absent); Urine Bilirubin Negative (Negative); Urine Blood 2+ (Negative); Urine Color Amber; Urine Glucose Negative (Negative); Urine Ketones Negative (Negative); Urine Nitrite Negative (Negative); Urine Protein 1+(30 mg/dL) (Negative); Urine Red Blood Cell 1+(3-5/hpf) (Absent); Urine Specific Gravity 1.019 (1.010-1.030); Urine Squamous Epithelial Cell Present (Absent); Urine Urobilinogen Negative (Negative); Urine White Blood Cell 3+(>20/hpf) (Absent)
[2018-06-27] MEDS ORDERED: Dextrose 50% Syringe 50 ML* 25 GM/50 ML SYRINGE IV PUSH PRN (14:28)
[2018-06-27 14:54] LABS: Magnesium 2.2 mg/dL (1.9-2.7)
--- NOTE | 2018-06-27 15:56 | HP ---
HISTORY AND PHYSICAL: DATE OF ADMISSION: 06/27/18 ADMITTING PROVIDER: Andrew Bowens MD. PRIMARY CARE PROVIDER: Damaso Sylevster MD. PRIMARY SOFTWARE TEST TECHNICIAN: Dr. Michel. CHIEF COMPLAINT: Fevers, productive cough, shortness of breath. HISTORY OF PRESENT ILLNESS: Nicole Kaufman is a 78-year-old female with past medical history of ischemic heart failure(EF 40-45%), atrial fibrillation(on Eliquis), hypertension, morbid obesity, insulin-dependent diabetes mellitus, peripheral vascular disease. For the last week, she has developed a cough and progressive shortness of breath. She visited her PCP's office, seen Naty Pugh, and reportedly had a fever of 101 there and was referred to the emergency room for further evaluation. She denies any chest pain. Reports that she had been told she has COPD back when [facility], though she has never had pulmonary function tests and is not currently on any inhalers. Here, she had a fever of 100.5, a CRP of 60, a chest x-ray concerning for bronchopneumonia and COPD. She is wheezing on exam, has hypoxic respiratory failure, satting 81% initially on room air, was referred to hospitalist service for admission. She was also in AFib with rates in the 120s initially and got diltiazem 10mg. She was started on ceftriaxone and azithromycin for suspected pneumonia/COPD exacerbation and 125mg of Solu-Medrol. PAST MEDICAL HISTORY: Atrial fibrillation; on Eliquis, systolic congestive heart failure with EF of 40% to 45%, morbid obesity, potential obesity hypoventilation syndrome, history of obstructive sleep apnea diagnosis(but never compliant with CPAP), hypertension, uterine cancer; status post hysterectomy, left bundle-branch block, peripheral vascular disease, frequent cellulitis episodes. PAST SURGICAL HISTORY: Includes hysterectomy, cholecystectomy, hernia repair, left total knee arthroplasty. MEDICATIONS: Include: 1. Torsemide 20 mg p.o. b.i.d. 2. Lantus 70 units each night. 3. Spironolactone 25 mg daily. 4. Cyanocobalamin 1000 mcg daily. 5. Theragran 1 tab p.o. daily. 6. Mirapex 1 mg p.o. at bedtime. 7. Lipitor 40 mg p.o. q.p.m. 8. Metoprolol succinate 50 mg p.o. daily. 9. Eliquis 5 mg p.o. b.i.d. 10. Lyrica 50 mg p.o. t.i.d. ALLERGIES: No known drug allergies. FAMILY HISTORY: Mother at age 91. Father in an accident at age 46. SOCIAL HISTORY: Patient is a never smoker. Denies any alcohol or drug use. She states that she wants to be a DNR/DNI and her medical surrogate she says is her , Bhupendra Kaufman, who is in the room with her. She does not have her MOLST form with her. REVIEW OF SYSTEMS: A complete 14-point review of systems is negative, except as per HPI. She denies any muscle pain. She did develop a headache after she started to fast voluntarily for anticipated morning labs. Denies any diaphoresis, chest pain, rashes. She attests to have some chronic neck stiffness for several months with turning [id number]. She is often limited in mobility secondary to shortness of breath and deconditioning. PHYSICAL EXAMINATION GENERAL APPEARANCE: No acute distress. VITAL SIGNS: Temperature 100.5, heart rate between 111 and 153, initially satting 81% to 85% on room air; currently 94% on 4 L, blood pressure initially 103/79; now 99/72. HEENT: Normocephalic, atraumatic. Pupils are equal, round, and reactive to light. Extraocular motions intact. No scleral icterus. Moist mucous membranes. LUNGS: With coarse breath sounds and some expiratory wheezing bilaterally. No rales. CARDIOVASCULAR: Tachycardic, irregularly irregular. No murmurs, rubs, or gallops. ABDOMEN: Soft, nontender. Central obesity. No rebound or guarding. EXTREMITIES: Warm and well perfused, 1+ pitting edema bilaterally. 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 NEURO: Moving all extremities. Cranial nerves II through XII intact. DIAGNOSTIC STUDIES/LAB DATA: Labs: White count 7.6, hemoglobin 14.4, hematocrit 45, platelets 152. Sodium 135, potassium 4.1, chloride 96, carbon dioxide 30, BUN 23, creatinine 0.96, glucose 101. Total bili 1.20, alk phos 172 , AST 25, ALT 15. Troponin 0.05, CRP 60.5, BNP 288. Albumin of 3.9. Urinalysis : 1+ protein, 2+ blood, 2+ leukocyte esterase, 3+ wbc's, 3+ bacteria. Influenza A and B were negative. Imaging: Chest x-ray demonstrated evidence of bronchopneumonia superimposed on chronic obstructive pulmonary disease. EKG demonstrated atrial fibrillation, rate 119, poor R-wave progression. No ST elevations. ASSESSMENT AND PLAN: Nicole Kaufman is a 78-year-old female with atrial fibrillation, ischemic cardiomyopathy and heart failure, hypertension, insulin- dependent diabetes mellitus presenting with a week of cough(productive), some wheezing, and acute hypoxic respiratory failure. She has multiple causes to be short of breath, reportedly has a history of chronic obstructive pulmonary disease even though a never smoker and her chest x-ray cis onsistent with that. She is status post 125 mg of Solu-Medrol in the ED and will continue prednisone 40 daily. Get sputum culture, legionella, and strep urinary antigen. Follow up with blood cultures. Urinalysis is suspicious for infection. She is being continued on ceftriaxone and azithromycin for suspected bronchopneumonia. We will get CBC and BMP daily. Flu swabs have been negative. Course is also complicated by her atrial fibrillation with rapid ventricular response. She has got diltiazem 10mg IV once in the ED. We will continue that as necessary and consider digoxin if hypotensive. For her insulin-dependent diabetes mellitus, we will get point-of- care testing q.a.c. h.s., continue Lantus at 40U; down from her 70 at home suspecting that she may be eating less here and her sugar is currently only 101, and adding high dose sliding scale insulin coverage as well. For her hypertension, hold her spironolactone in the setting of infection. Continue torsemide, but start tomorrow at 20mg twice a day. She is a DNR/DNI. , Bhupendra, is medical surrogate. For DVT prophylaxis, she is already on Eliquis, which is continued. She is being admitted to inpatient status. [id number]/[facility] #: [id number] [facility] CENTERGuille
[2018-06-27] MEDS ORDERED: Azithromycin IV(*) 500 MG in NS 0.9% 250 ML* 250 ML IVPB SCH (16:00)
[2018-06-27] MEDS: Apixaban* 5 MG TAB PO SCH ×2 (17:34→21:52)
[2018-06-27] MEDS: Insulin LISPRO* 1 UNITS UNIT SUBCUT SCH ×2 (17:49→21:49)
[2018-06-27] MEDS: Atorvastatin* 40 MG TAB PO SCH (17:50)
[2018-06-27] MEDS ORDERED: Diltiazem TAB* 30 MG PO SCH (18:00)
[2018-06-27] MEDS ORDERED: Diltiazem IV VIAL* 125 MG in NS 0.9% 100 ML* 100 ML IV SCH (19:30)
[2018-06-27] MEDS ORDERED: NS 0.9% 100 ML* 100 ML ONE (19:35)
[2018-06-27] MEDS ORDERED: Insulin GLARGINE(*) 1 UNITS UNIT SUBCUT SCH (20:00)
[2018-06-27] MEDS: Mometasone/Formoter 200/5 MDI INH SCH (20:37)
[2018-06-27] MEDS: Pramipexole TAB* 0.5 MG PO SCH (21:51)
[2018-06-27] MEDS: Pregabalin CAP(*) 50 MG PO SCH (21:52)
[2018-06-27] MEDS: Levalbuterol 1.25MG/0.5ML NEB INH PRN (23:21)
--- NOTE | 2018-06-28 01:14 | PN ---
Progress Note - Progress Note Date of Service: 06/28/18 Note: Patients HR in 50's, afib. Will d/c diltiazem drip. Has metoprolol ordered for AM.
[2018-06-28 05:55] LABS: Hematocrit 39 % (35-47); Hemoglobin 12.8 g/dl (12.0-16.0); Mean Corpuscular HGB Conc 32 g/dl (31-36); Mean Corpuscular Hemoglobin 28 pg (27-31); Mean Corpuscular Volume 86 fL (80-97); Mean Platelet Volume 8.3 fL (7.4-10.4); Platelet Count 138 10^3/ul (150-450); Red Blood Count 4.61 10^6/ul (4.00-5.40); Red Cell Distribution Width 18 % (10.5-15); White Blood Count 4.9 10^3/ul (3.5-10.8)
[2018-06-28 06:08] LABS: BUN/Creatinine Ratio 33.3 (8-20); Calcium 8.8 mg/dL (8.6-10.3); EGFR African American 76.4 (>60); EGFR Non-African American 63.1 (>60); Magnesium 2.3 mg/dL (1.9-2.7)
[2018-06-28 06:22] LABS: ABS Basophils 0 10^3/ul (0-0.2); ABS Eosinophils 0 10^3/ul (0-0.6); ABS Lymphocytes 0.4 10^3/ul (1.0-4.8); ABS Monocytes 0.2 10^3/ul (0-0.8); ABS Neutrophils 4.2 10^3/ul (1.5-7.7); ABS Nucleated RBC 0 10^3/ul; Eosinophil % 0 %; Large Platelets Present; Lymphocyte % 9.1 %; Nucleated Red Blood Cells % 0.1
[2018-06-28] MEDS: Insulin LISPRO* 1 UNITS UNIT SUBCUT SCH ×4 (08:18→21:36)
[2018-06-28] MEDS: Cyanocobalamin TAB* 500 MCG PO SCH (08:18)
[2018-06-28] MEDS: predniSONE TAB* 20 MG PO SCH (08:18)
[2018-06-28] MEDS: Multivitamins/Minerals TAB PO SCH (08:18)
[2018-06-28] MEDS: Apixaban* 5 MG TAB PO SCH ×2 (08:18→21:35)
[2018-06-28] MEDS: Metoprolol Succinate XL TAB* 50 MG PO SCH (08:18)
[2018-06-28] MEDS: Torsemide TAB* 20 MG PO SCH ×2 (08:18→21:35)
[2018-06-28] MEDS: Pregabalin CAP(*) 50 MG PO SCH ×3 (08:18→21:35)
[2018-06-28] MEDS: Mometasone/Formoter 200/5 MDI INH SCH ×2 (09:36→19:45)
[2018-06-28] MEDS: cefTRIAXone(*) 1 GM in NS 0.9% 50 ML* 50 ML IVPB SCH (12:43)
--- NOTE | 2018-06-28 13:41 | CONSULT ---
Consult Consult: WOUND CONSULT NOTE Date of Service: 06/28/18 History: Interval History: Patient seen and examined at bedside. Denies fever and chills. Has decreased sensation to the lower extremities. Ms. Kaufman is a 78 yo female with PMH significant for ischemic heart failure, A fib on eliquis, HTN, morbid obesity, DM, and PVD who presented to the emergency room with complaints of cough and SOB, she was admitted to the hospital for treatment of a UTI and PNA. Ms. Kaufman states that she had 3 toes amputated on the left LE in the past. She states that she developed a wound at the healed amputation site, that she has been following her outpatient electromechanical assembly technician who feels the wound is from pressure caused by her shoe and he recently removed skin around the area. She states that she cares for the wound at home by cleaning it with alcohol daily and applying a dry dressing as instructed by her Clinical Geneticist. Past Medical/Family/Social History: Family History: Unchanged from Admission Social History: Unchanged from Admission Past Medical History: Unchanged from Admission Objective: Active Medications: Dextrose (D50w Syringe 50 Ml*) 12.5 gm IV PUSH .FOR FS < 60 - SS PRN Reason: FS < 60 Metoprolol Succinate (Toprol Xl Tab*) 50 mg PO DAILY EFREN Apixaban (Eliquis*) 5 mg PO BID EFREN Atorvastatin Calcium (Lipitor*) 40 mg PO QPM EFREN Ceftriaxone Sodium 1 gm/ (Sodium Chloride) 50 mls @ 200 mls/hr IVPB Q24H EFREN Cyanocobalamin (Vitamin B12 Tab*) 1,000 mcg PO DAILY EFREN Doxycycline Hyclate 100 mg/ (Sodium Chloride) 250 mls @ 250 mls/hr IVPB Q12H EFREN Insulin Glargine (Lantus(*)) 70 units SUBCUT Q24H EFREN Insulin Human Lispro (Humalog*) 0 units SUBCUT ACHS EFREN; Protocol Levalbuterol HCl (Xopenex 1.25 Mg/0.5 Ml Neb.Luba*) 1.25 mg INH Q6H PRN Reason: SOB/WHEEZING Mometasone Furoate/Formoterol Fumar (Dulera 200/5 Mdi*) 2 puff INH BID EFREN Multivitamins/Minerals (Theragran/Minerals Tab*) 1 tab PO DAILY EFREN Pramipexole Dihydrochloride (Mirapex Tab*) 1 mg PO BEDTIME EFREN Prednisone (Deltasone Tab*) 40 mg PO DAILY EFREN Pregabalin (Lyrica Cap(*)) 50 mg PO TID EFREN Torsemide (Demadex*) 20 mg PO BID EFREN Vital Signs: 06/28/18 11:21 Temperature 97.3 F Temperature Oral Source Pulse Rate 88 Respiratory 20 Rate Blood Pressure 116/73 (mmHg) Blood Pressure 84 Mean O2 Sat by Pulse 99 Oximetry Patient on Room No Air Exam: General: NAD, sitting up in a chair Neuro: Alert and Oriented Skin: Left 1st toe, open area to dorsal aspect of the 1st metatarsal. There is a small superficial open area 0.9cm x 0.3 cm x 0.1 cm. The surrounding skin is intact. Surrounding skin has previously been sharply debrided (by outpatient electromechanical assembly technician). Wound bed is pink. No erythema to surrounding skin. Data: Labs: 06/27/18 06/28/18 06/28/18 10:47 05:25 05:25 WBC 4.9 Hgb 12.8 Hct 39 Plt Count 138 L Sodium 133 L Potassium 4.0 Chloride 99 L Carbon Dioxide 27 BUN 29 H Creatinine 0.87 Glucose 259 H Albumin 3.9 Assessment/Plan: 1. Ulcer to left 1st metatarsal. Suspect this is a diabetic ulcer. The wound bed is pink and there are no signs of infection. The ulcer is healing well. Continue to keep the area clean and apply a dry dressing. She should continue to follow with her outpatient electromechanical assembly technician as needed. VTE PPX: Eliquis Diet: Consistent Carb diet. Code Status: Full Code Disposition: Inpatient. Disposition per primary medicine team. Time Spent: 15 minutes Attending: Dr. Kia Hernadez MD
[2018-06-28] MEDS: DOXYcycline IV* 100 MG in NS 0.9% 250 ML* 250 ML IVPB SCH (13:58)
[2018-06-28] MEDS: Atorvastatin* 40 MG TAB PO SCH (17:10)
[2018-06-28] MEDS: Insulin GLARGINE(*) 1 UNITS UNIT SUBCUT SCH (17:23)
--- NOTE | 2018-06-28 17:32 | PN ---
Subjective Date of Service: 06/28/18 Interval History: Sitting in chair eating lunch on assessment. Patient is noted to be on 4 L NC and reports she does not wear O2 at home. Reports she has had "cold like" symptoms for a week and then was sent here from her Primary Care. Patient reports continue productive cough with clear sputum. Reports mild sob with exertion. Denies cp, palpitations, nausea, vomiting, diarrhea, fever/chills. Objective Active Medications: Apixaban (Eliquis*) 5 mg PO BID [facility] Last Admin: 06/28/18 08:18 Dose: 5 mg Atorvastatin Calcium (Lipitor*) 40 mg PO QPM [facility] Last Admin: 06/28/18 17:10 Dose: 40 mg Cyanocobalamin (Vitamin B12 Tab*) 1,000 mcg PO DAILY [facility] Last Admin: 06/28/18 08:18 Dose: 1,000 mcg Dextrose (D50w Syringe 50 Ml*) 12.5 gm IV PUSH .FOR FS < 60 - SS PRN PRN Reason: FS < 60 Ceftriaxone Sodium 1 gm/ (Sodium Chloride) 50 mls @ 200 mls/hr IVPB Q24H [facility] Last Admin: 06/28/18 12:43 Dose: 200 mls/hr Doxycycline Hyclate 100 mg/ (Sodium Chloride) 250 mls @ 250 mls/hr IVPB Q12H [facility] Last Admin: 06/28/18 13:58 Dose: 250 mls/hr Insulin Glargine (Lantus(*)) 70 units SUBCUT Q24H [facility] Last Admin: 06/28/18 17:23 Dose: 70 units Insulin Human Lispro (Humalog*) 0 units SUBCUT ACHS [facility]; Protocol Last Admin: 06/28/18 17:10 Dose: 15 units Levalbuterol HCl (Xopenex 1.25 Mg/0.5 Ml Neb.Luba*) 1.25 mg INH Q6H PRN PRN Reason: SOB/WHEEZING Last Admin: 06/27/18 23:21 Dose: 1.25 mg Metoprolol Succinate (Toprol Xl Tab*) 50 mg PO DAILY [facility] Last Admin: 06/28/18 08:18 Dose: 50 mg Mometasone Furoate/Formoterol Fumar (Dulera 200/5 Mdi*) 2 puff INH BID [facility] Last Admin: 06/28/18 09:36 Dose: 2 puff Multivitamins/Minerals (Theragran/Minerals Tab*) 1 tab PO DAILY [facility] Last Admin: 06/28/18 08:18 Dose: 1 tab Pramipexole Dihydrochloride (Mirapex Tab*) 1 mg PO BEDTIME [facility] Last Admin: 06/27/18 21:51 Dose: 1 mg Prednisone (Deltasone Tab*) 40 mg PO DAILY [facility] Last Admin: 06/28/18 08:18 Dose: 40 mg Pregabalin (Lyrica Cap(*)) 50 mg PO TID [facility] Last Admin: 06/28/18 13:24 Dose: 50 mg Torsemide (Demadex*) 20 mg PO BID [facility] Last Admin: 06/28/18 08:18 Dose: 20 mg Vital Signs - 8 hr 06/28/18 06/28/18 06/28/18 09:46 10:49 11:21 Temperature 97.3 F Pulse Rate 80 88 Respiratory 18 20 Rate Blood Pressure 116/73 (mmHg) O2 Sat by Pulse 95 99 Oximetry 06/28/18 06/28/18 06/28/18 13:24 15:02 15:59 Temperature 97.2 F Pulse Rate 79 Respiratory 16 20 16 Rate Blood Pressure 106/46 (mmHg) O2 Sat by Pulse 97 Oximetry Oxygen Devices in Use Now: Nasal Cannula Appearance: Comfortable, NAD Eyes: No Scleral Icterus Ears/Nose/Mouth/Throat: Clear Oropharnyx, Mucous Membranes Moist Neck: NL Appearance and Movements; NL JVP Respiratory: Symmetrical Chest Expansion and Respiratory Effort, - - Crackles in bilateral bases. Sporadic rhonchi in upper lobes Cardiovascular: RRR, No Edema, - - Irr rate (afib). LE consistent with PVD Extremities: No Edema Neurological: Alert and Oriented x 3 Nutrition: Taking PO's Result Diagrams: 06/28/18 05:25 06/28/18 05:25 Additional Lab and Data: Laboratory Results - last 24 hr 06/27/18 06/28/18 06/28/18 20:25 05:25 05:25 WBC 4.9 RBC 4.61 Hgb 12.8 Hct 39 MCV 86 MCH 28 MCHC 32 RDW 18 H Plt Count 138 L MPV 8.3 Neut % (Auto) 87.0 Lymph % (Auto) 9.1 [place] % (Auto) 3.8 Eos % (Auto) 0 Baso % (Auto) 0.1 Absolute Neuts (auto) 4.2 Absolute Lymphs (auto) 0.4 L Absolute Monos (auto) 0.2 Absolute Eos (auto) 0 Absolute Basos (auto) 0 Absolute Nucleated RBC 0 Nucleated RBC % 0.1 Large Platelets Present Sodium 133 L Potassium 4.0 Chloride 99 L Carbon Dioxide 27 Anion Gap 7 BUN 29 H Creatinine 0.87 Est GFR ( Amer) 76.4 Est GFR (Non-Af Amer) 63.1 BUN/Creatinine Ratio 33.3 H Glucose 259 H POC Glucose (mg/dL) 337 H Glucose Meter Confirm Calcium 8.8 Magnesium 2.3 06/28/18 06/28/18 06/28/18 07:52 11:47 16:34 WBC RBC Hgb Hct MCV MCH MCHC RDW Plt Count MPV Neut % (Auto) Lymph % (Auto) [place] % (Auto) Eos % (Auto) Baso % (Auto) Absolute Neuts (auto) Absolute Lymphs (auto) Absolute Monos (auto) Absolute Eos (auto) Absolute Basos (auto) Absolute Nucleated RBC Nucleated RBC % Large Platelets Sodium Potassium Chloride Carbon Dioxide Anion Gap BUN Creatinine Est GFR ( Amer) Est GFR (Non-Af Amer) BUN/Creatinine Ratio Glucose 423 H POC Glucose (mg/dL) 278 H Glucose Meter Confirm 424 H Calcium Magnesium Microbiology and Other Data: Microbiology 06/27/18 11:30 Blood Venous Aerobic Blood Culture - Preliminary No Growth Day 1 06/27/18 11:30 Blood Venous Anaerobic Blood Culture - Preliminary No Growth Day 1 06/27/18 10:47 Blood Venous Aerobic Blood Culture - Preliminary No Growth Day 1 06/27/18 10:47 Blood Venous Anaerobic Blood Culture - Preliminary No Growth Day 1 06/27/18 21:43 Urine Legionella Urinary Antigen - Final Negative Legionella Antigen 06/27/18 21:43 Urine Streptococcus pneumoniae Ag Screen - Final Negative S. pneumo Antigen 06/27/18 12:04 Nasopharyngeal Influenza Types A,B Antigen - Final Specimen received for Influenza A/B Molecular testing Assess/Plan/Problems-Billing Assessment: 78 yr old patient with pmh consistent for ischemic HF, afib, htn, obesity, spencer, dm, pvd; presented to ed with fever, cough and sob - Patient Problems (1) COPD (chronic obstructive pulmonary disease) Comment: - Although patient has never smoked, chest xray is consistent with copd. - Cont prednisone - Cont supplemental O2 and nebulizers (2) Urinary tract infection Comment: - UA suspicious for uti. - Cont Rocephin - Awaiting cultures (3) Pneumonia Comment: - Cont Ceftriaxone/Doxy - Legionella and Pneumococcal Neg (4) Systolic CHF Comment: - Last echo EF 40-45% with mild to mod decrease in left ventricular systolic function - Chest xray suspicious for fluid, crackles heard at bases, and patient requiring O2 therefore Lasix IV ordered x1 - Cont home Torsemide (5) Afib Comment: - Rate is controlled, but she had sinus pauses up to 3 seconds x2, therefore, Azithro discontinued and substitute Doxy - Continue Eliquis. (6) Diabetes Comment: - Lantus decreased to 40 unit from home dose of 70 units on admission - BG have been in 400, probably due to prednisone also - Resume home dose of lantus 70 units nightly as patient appears to be eating normally - Cont SS and FS (7) Hyperlipidemia Comment: - Continue atorvastatin. (8) Hypertension Comment: - SBP 100s. - Continue torsemide and metoprolol - Cont to hold spironolactone (9) Full code status (10) DVT prophylaxis Comment: - Eliquis. Attending: Luciano Ordaz
[2018-06-28] MEDS ORDERED: Furosemide IV* 10 MG/ML VIAL (40 MG) IV ONE (17:42)
[2018-06-28] MEDS: Pramipexole TAB* 0.5 MG PO SCH (21:35)
[2018-06-29] MEDS: DOXYcycline IV* 100 MG in NS 0.9% 250 ML* 250 ML IVPB SCH ×2 (02:29→12:07)
[2018-06-29 06:25] LABS: ABS Basophils 0 10^3/ul (0-0.2); ABS Eosinophils 0 10^3/ul (0-0.6); ABS Lymphocytes 0.5 10^3/ul (1.0-4.8); ABS Monocytes 0.5 10^3/ul (0-0.8); ABS Neutrophils 6.8 10^3/ul (1.5-7.7); ABS Nucleated RBC 0 10^3/ul; Eosinophil % 0 %; Hematocrit 41 % (35-47); Hemoglobin 13.1 g/dl (12.0-16.0); Lymphocyte % 6.7 %; Mean Corpuscular HGB Conc 32 g/dl (31-36); Mean Corpuscular Hemoglobin 28 pg (27-31); Mean Corpuscular Volume 87 fL (80-97); Mean Platelet Volume 8.4 fL (7.4-10.4); Nucleated Red Blood Cells % 0.1; Platelet Count 170 10^3/ul (150-450); Red Blood Count 4.74 10^6/ul (4.00-5.40); Red Cell Distribution Width 18 % (10.5-15); White Blood Count 7.9 10^3/ul (3.5-10.8)
[2018-06-29 06:45] LABS: BUN/Creatinine Ratio 45.3 (8-20); EGFR African American 77.4 (>60); Magnesium 2.5 mg/dL (1.9-2.7)
[2018-06-29] MEDS: Insulin LISPRO* 1 UNITS UNIT SUBCUT SCH ×4 (07:43→21:19)
[2018-06-29] MEDS: Apixaban* 5 MG TAB PO SCH ×2 (08:13→21:20)
[2018-06-29] MEDS: Metoprolol Succinate XL TAB* 50 MG PO SCH (08:13)
[2018-06-29] MEDS: Multivitamins/Minerals TAB PO SCH (08:13)
[2018-06-29] MEDS: Torsemide TAB* 20 MG PO SCH ×2 (08:13→21:20)
[2018-06-29] MEDS: predniSONE TAB* 20 MG PO SCH (08:13)
[2018-06-29] MEDS: Cyanocobalamin TAB* 500 MCG PO SCH (08:13)
[2018-06-29] MEDS: Pregabalin CAP(*) 50 MG PO SCH ×3 (08:14→21:20)
[2018-06-29] MEDS: Mometasone/Formoter 200/5 MDI INH SCH ×2 (08:53→19:48)
[2018-06-29] MEDS: Levalbuterol 1.25MG/0.5ML NEB INH PRN (13:21)
[2018-06-29] MEDS: cefTRIAXone(*) 1 GM in NS 0.9% 50 ML* 50 ML IVPB SCH (13:28)
[2018-06-29] MEDS: Insulin GLARGINE(*) 1 UNITS UNIT SUBCUT SCH (17:11)
[2018-06-29] MEDS: Atorvastatin* 40 MG TAB PO SCH (17:12)
--- NOTE | 2018-06-29 18:19 | PN ---
Subjective Date of Service: 06/29/18 Interval History: Sitting in chair on assessment. Reports improvement in shortness of breath. Reports only mild shortness of breath with exertion. Continues to have occasional cough which she states is also improving. Denies chest pain/pressure, dizziness, palpitations, nausea, vomiting, fever/ chills Objective Active Medications: Apixaban (Eliquis*) 5 mg PO BID [facility] Last Admin: 06/29/18 08:13 Dose: 5 mg Atorvastatin Calcium (Lipitor*) 40 mg PO QPM [facility] Last Admin: 06/29/18 17:12 Dose: 40 mg Cyanocobalamin (Vitamin B12 Tab*) 1,000 mcg PO DAILY [facility] Last Admin: 06/29/18 08:13 Dose: 1,000 mcg Dextrose (D50w Syringe 50 Ml*) 12.5 gm IV PUSH .FOR FS < 60 - SS PRN PRN Reason: FS < 60 Ceftriaxone Sodium 1 gm/ (Sodium Chloride) 50 mls @ 200 mls/hr IVPB Q24H [facility] Last Admin: 06/29/18 13:28 Dose: 200 mls/hr Doxycycline Hyclate 100 mg/ (Sodium Chloride) 250 mls @ 250 mls/hr IVPB Q12H [facility] Last Admin: 06/29/18 12:07 Dose: 250 mls/hr Insulin Glargine (Lantus(*)) 70 units SUBCUT Q24H [facility] Last Admin: 06/29/18 17:11 Dose: 70 units Insulin Human Lispro (Humalog*) 0 units SUBCUT ACHS [facility]; Protocol Last Admin: 06/29/18 17:12 Dose: 15 units Levalbuterol HCl (Xopenex 1.25 Mg/0.5 Ml Neb.Luba*) 1.25 mg INH Q6H PRN PRN Reason: SOB/WHEEZING Last Admin: 06/29/18 13:21 Dose: 1.25 mg Metoprolol Succinate (Toprol Xl Tab*) 50 mg PO DAILY [facility] Last Admin: 06/29/18 08:13 Dose: 50 mg Mometasone Furoate/Formoterol Fumar (Dulera 200/5 Mdi*) 2 puff INH BID [facility] Last Admin: 06/29/18 08:53 Dose: 2 puff Multivitamins/Minerals (Theragran/Minerals Tab*) 1 tab PO DAILY [facility] Last Admin: 06/29/18 08:13 Dose: 1 tab Pramipexole Dihydrochloride (Mirapex Tab*) 1 mg PO BEDTIME [facility] Last Admin: 06/28/18 21:35 Dose: 1 mg Prednisone (Deltasone Tab*) 40 mg PO DAILY [facility] Last Admin: 06/29/18 08:13 Dose: 40 mg Pregabalin (Lyrica Cap(*)) 50 mg PO TID [facility] Last Admin: 06/29/18 13:28 Dose: 50 mg Torsemide (Demadex*) 20 mg PO BID [facility] Last Admin: 06/29/18 08:13 Dose: 20 mg Vital Signs - 8 hr 06/29/18 06/29/18 06/29/18 10:54 13:12 13:24 Temperature 97.5 F Pulse Rate 78 80 Respiratory 16 20 18 Rate Blood Pressure 108/64 (mmHg) O2 Sat by Pulse 97 93 Oximetry 06/29/18 06/29/18 06/29/18 13:28 15:11 15:59 Temperature 97.6 F Pulse Rate 81 Respiratory 18 20 18 Rate Blood Pressure 98/49 (mmHg) O2 Sat by Pulse 92 Oximetry Oxygen Devices in Use Now: Nasal Cannula Appearance: Comfortable, NAD Eyes: No Scleral Icterus Ears/Nose/Mouth/Throat: Clear Oropharnyx, Mucous Membranes Moist Neck: NL Appearance and Movements; NL JVP Respiratory: Symmetrical Chest Expansion and Respiratory Effort, - - Sporadic wheeze and rhonchi throughout. Mildly diminished airflow Cardiovascular: NL Sounds; No Murmurs; No JVD, No Edema Abdominal: NL Sounds; No Tenderness; No Distention Lymphatic: No Cervical Adenopathy Extremities: No Clubbing, Cyanosis Neurological: Alert and Oriented x 3 Nutrition: Taking PO's Result Diagrams: 06/29/18 05:30 06/29/18 05:30 Additional Lab and Data: Laboratory Results - last 24 hr 06/28/18 06/28/18 06/29/18 20:16 20:32 05:30 WBC 7.9 RBC 4.74 Hgb 13.1 Hct 41 MCV 87 MCH 28 MCHC 32 RDW 18 H Plt Count 170 MPV 8.4 Neut % (Auto) 86.7 Lymph % (Auto) 6.7 [place] % (Auto) 6.4 Eos % (Auto) 0 Baso % (Auto) 0.2 Absolute Neuts (auto) 6.8 Absolute Lymphs (auto) 0.5 L Absolute Monos (auto) 0.5 Absolute Eos (auto) 0 Absolute Basos (auto) 0 Absolute Nucleated RBC 0 Nucleated RBC % 0.1 Sodium Potassium Chloride Carbon Dioxide Anion Gap BUN Creatinine Est GFR ( Amer) Est GFR (Non-Af Amer) BUN/Creatinine Ratio Glucose POC Glucose (mg/dL) 434 H* Glucose Meter Confirm 379 H Calcium Magnesium B-Natriuretic Peptide 06/29/18 06/29/18 06/29/18 05:30 05:30 07:20 WBC RBC Hgb Hct MCV MCH MCHC RDW Plt Count MPV Neut % (Auto) Lymph % (Auto) [place] % (Auto) Eos % (Auto) Baso % (Auto) Absolute Neuts (auto) Absolute Lymphs (auto) Absolute Monos (auto) Absolute Eos (auto) Absolute Basos (auto) Absolute Nucleated RBC Nucleated RBC % Sodium 139 Potassium 4.0 Chloride 102 Carbon Dioxide 30 Anion Gap 7 BUN 39 H Creatinine 0.86 Est GFR ( Amer) 77.4 Est GFR (Non-Af Amer) 64.0 BUN/Creatinine Ratio 45.3 H Glucose 107 H POC Glucose (mg/dL) 124 H Glucose Meter Confirm Calcium 9.0 Magnesium 2.5 B-Natriuretic Peptide 167 H 06/29/18 06/29/18 06/29/18 11:43 16:29 16:36 WBC RBC Hgb Hct MCV MCH MCHC RDW Plt Count MPV Neut % (Auto) Lymph % (Auto) [place] % (Auto) Eos % (Auto) Baso % (Auto) Absolute Neuts (auto) Absolute Lymphs (auto) Absolute Monos (auto) Absolute Eos (auto) Absolute Basos (auto) Absolute Nucleated RBC Nucleated RBC % Sodium Potassium Chloride Carbon Dioxide Anion Gap BUN Creatinine Est GFR ( Amer) Est GFR (Non-Af Amer) BUN/Creatinine Ratio Glucose POC Glucose (mg/dL) 367 H 411 H* Glucose Meter Confirm 388 H Calcium Magnesium B-Natriuretic Peptide Microbiology and Other Data: Microbiology 06/27/18 13:13 Urine Urine Culture - Preliminary Klebsiella Pneumoniae 06/27/18 11:30 Blood Venous Aerobic Blood Culture - Preliminary No Growth Day 2 06/27/18 11:30 Blood Venous Anaerobic Blood Culture - Preliminary No Growth Day 2 06/27/18 10:47 Blood Venous Aerobic Blood Culture - Preliminary No Growth Day 2 06/27/18 10:47 Blood Venous Anaerobic Blood Culture - Preliminary No Growth Day 2 06/27/18 21:43 Urine Legionella Urinary Antigen - Final Negative Legionella Antigen 06/27/18 21:43 Urine Streptococcus pneumoniae Ag Screen - Final Negative S. pneumo Antigen 06/27/18 12:04 Nasopharyngeal Influenza Types A,B Antigen - Final Specimen received for Influenza A/B Molecular testing Assess/Plan/Problems-Billing Assessment: 78 yr old patient with pmh consistent for ischemic HF, afib, htn, obesity, spencer, dm, pvd; presented to ed with fever, cough and sob - Patient Problems (1) COPD (chronic obstructive pulmonary disease) Comment: - Although patient has never smoked, chest xray is consistent with copd. - Cont prednisone - Cont supplemental O2 and nebulizers - Started to wean O2 today. Started at 4L and now on 1L per nurse. - Encourage ambulation (2) Urinary tract infection Comment: - Cont Rocephin - Prelim culture resulted Kleb pneu (3) Pneumonia Comment: - Cont Ceftriaxone/Doxy - Legionella and Pneumococcal Neg (4) Systolic CHF Comment: - Last echo EF 40-45% with mild to mod decrease in left ventricular systolic function - Chest xray suspicious for fluid and crackles heard at bases yesterday. Patient requiring O2 therefore Lasix IV ordered x1 yesterday and responded well. - May need further diuresing - Cont home torsemide, metoprolol, spironolactone (5) Afib Comment: - Rate is controlled, but she had sinus pauses up to 3 seconds x2 yesterday, therefore, Azithro discontinued and substitute Doxy - Continue Eliquis. (6) Diabetes Comment: - Lantus decreased to 40 unit from home dose of 70 units on admission - BG have been in 400, probably due to prednisone also - Resumed home dose of lantus 70 units nightly yesterday as patient appears to be eating normally - Cont 70 units lantus HS - Cont SS and FS (7) Hyperlipidemia Comment: - Continue atorvastatin. (8) Hypertension Comment: - SBP 100s. - Continue torsemide, metoprolol, spironolactone (9) Full code status (10) DVT prophylaxis Comment: - Eliquis. Attending: Luciano Ordaz
[2018-06-29] MEDS ORDERED: Insulin LISPRO* 1 UNITS UNIT SUBCUT ONE (21:06)
[2018-06-29] MEDS: Pramipexole TAB* 0.5 MG PO SCH (21:20)
[2018-06-30] MEDS: DOXYcycline IV* 100 MG in NS 0.9% 250 ML* 250 ML IVPB SCH ×2 (00:29→12:43)
[2018-06-30 06:23] LABS: ABS Basophils 0 10^3/ul (0-0.2); ABS Eosinophils 0 10^3/ul (0-0.6); ABS Lymphocytes 0.8 10^3/ul (1.0-4.8); ABS Monocytes 0.5 10^3/ul (0-0.8); ABS Neutrophils 5.7 10^3/ul (1.5-7.7); ABS Nucleated RBC 0 10^3/ul; Eosinophil % 0.2 %; Hematocrit 41 % (35-47); Hemoglobin 12.9 g/dl (12.0-16.0); Lymphocyte % 11.6 %; Mean Corpuscular HGB Conc 32 g/dl (31-36); Mean Corpuscular Hemoglobin 28 pg (27-31); Mean Corpuscular Volume 87 fL (80-97); Mean Platelet Volume 8.3 fL (7.4-10.4); Nucleated Red Blood Cells % 0.1; Platelet Count 180 10^3/ul (150-450); Red Blood Count 4.65 10^6/ul (4.00-5.40); Red Cell Distribution Width 18 % (10.5-15); White Blood Count 7.1 10^3/ul (3.5-10.8)
[2018-06-30 06:41] LABS: EGFR African American 81.8 (>60); EGFR Non-African American 67.6 (>60); Potassium 3.8 mmol/L (3.5-5.0)
[2018-06-30] MEDS: Mometasone/Formoter 200/5 MDI INH SCH (07:45)
[2018-06-30] MEDS: Insulin LISPRO* 1 UNITS UNIT SUBCUT SCH ×2 (08:18→11:51)
[2018-06-30] MEDS: Torsemide TAB* 20 MG PO SCH (08:21)
[2018-06-30] MEDS: Cyanocobalamin TAB* 500 MCG PO SCH (08:22)
[2018-06-30] MEDS: Metoprolol Succinate XL TAB* 50 MG PO SCH ×2 (08:22→09:39)
[2018-06-30] MEDS: predniSONE TAB* 20 MG PO SCH (08:22)
[2018-06-30] MEDS: Pregabalin CAP(*) 50 MG PO SCH ×2 (08:22→12:43)
[2018-06-30] MEDS: Apixaban* 5 MG TAB PO SCH (08:22)
[2018-06-30] MEDS: Multivitamins/Minerals TAB PO SCH (08:22)
[2018-06-30 08:26] VITALS: BP 100/50
[2018-06-30] MEDS ORDERED: Spironolactone TAB* 25 MG PO SCH (09:00)
[2018-06-30] MEDS: cefTRIAXone(*) 1 GM in NS 0.9% 50 ML* 50 ML IVPB SCH (12:42)
--- NOTE | 2018-06-30 22:05 | DS ---
CC: Dr. Damaso Sylvester * DISCHARGE SUMMARY: DATE OF ADMISSION: 06/27/18 DATE OF DISCHARGE: 06/30/18 PRIMARY CARE PROVIDER: Dr. Damaso Sylvester. ATTENDING PHYSICIAN: Dr. Luciano Ordaz * (dictated by Grecia Duffy NP). PRIMARY DIAGNOSES: 1. Urinary tract infection, Klebsiella pneumoniae. 2. Community-acquired pneumonia. 3. Sepsis. 4. COPD exacerbation. SECONDARY DIAGNOSES: 1. Systolic congestive heart failure. 2. Atrial fibrillation. 3. Diabetes mellitus type 2. 4. Hyperlipidemia. 5. Hypertension. STUDIES WHILE IN THE HOSPITAL: 1. Chest x-ray on 06/27/18 reads as the constellation of findings are suspicious for bronchopneumonia superimposed on chronic obstructive cardiopulmonary disease. 2. EKG on 06/27/18 shows atrial fibrillation with a rate of 119, QTc 458. No ischemic changes. HISTORY OF PRESENT ILLNESS AND HOSPITAL COURSE: Ms. Kaufman is a 78-year-old female with past medical history of atrial fibrillation, systolic congestive heart failure, diabetes, likely obesity hypoventilation syndrome, and obstructive sleep apnea, who presented to the emergency room on 06/27/18 with complaints of fever, productive cough, and shortness of breath. Please see the history and physical by Dr. Bowens for a complete summary of the events leading up to this hospitalization. In short, the patient reported that for the last week she had developed a cough and progressive shortness of breath. She reported a fever up to 101 degrees Fahrenheit. On arrival to the emergency room , the patient was noted to be satting at 81% on room air and she was noted to be tachycardic in the 120s. She did receive a dose of diltiazem for her tachycardia and she received ceftriaxone and azithromycin for her pneumonia. The patient was admitted by the hospitalist service. The patient was continued on ceftriaxone and azithromycin, although she was subsequently taken off the azithromycin due to 2 episodes of sinus pauses up to 3 seconds. She was placed on doxycycline. She continued to require oxygen up to 4 L, though was able to be weaned off. Also the patient was noted to be hyperglycemic, though on admission her Lantus dosing had been decreased and she was started on steroids. So, that is the likely cause of hyperglycemia. On 12/08, the patient was noted to have some crackles in bilateral bases and she did receive one dose of IV Lasix, for which she responded well to. Reportedly, the patient does not have a history of smoking though her chest x-ray was concerning for COPD, and so she was started on Dulera, and she did have nebulizers while here in the hospital. She was noted to have negative Legionella and Strep pneumo urine antigens. Additionally, the patient was found to have a urinary tract infection and her urine culture grew greater than 100,000 colonies of Klebsiella pneumoniae, which was already covered by the ceftriaxone. To date, her sputum culture has not shown any growth. Vital signs have normalized. As of today, the patient was on 1 L of oxygen this morning. Nursing walked with the patient, who was able to ambulate down the hallway and dropped to 90% on room air while ambulating. She reports feeling well. She does continue to have a mild congested cough, though reports that she is sleeping well throughout the night. She denies any shortness of breath. On exam, lung sounds are diminished throughout with scattered wheezes. She is anxious to return home. Ms. Kaufman is stable for discharge today. Vital signs are as follows: Temp 96.6 , heart rate 114, respiratory rate 20, oxygen saturation 90% on room air, blood pressure 100/50. DISCHARGE MEDICATIONS: New medications: 1. Albuterol MDI 1 to 2 puffs q.4 hours p.r.n. shortness of breath. 2. Amoxicillin 500 mg p.o. t.i.d. x4 days. 3. Doxycycline 100 mg p.o. b.i.d. x4 days. 4. Dulera 200/5 two puffs b.i.d. 5. Prednisone 10 mg taper (3 tabs for 2 days, and 2 tabs for 2 days, and then 1 tab for 2 days). Continued medications: 1. Eliquis 5 mg p.o. b.i.d. 2. Atorvastatin 40 mg p.o. daily. 3. Vitamin B12 1000 mcg p.o. daily. 4. Glargine 70 units subcu daily. 5. Metoprolol succinate 50 mg p.o. daily. 6. Multivitamin 1 tab p.o. daily. 7. Mirapex 1 mg p.o. at bedtime. 8. Lyrica 50 mg p.o. t.i.d. 9. Spironolactone 25 mg p.o. daily. 10. Torsemide 20 mg p.o. b.i.d. DISCHARGE PLAN: Ms. Kaufman will be discharged home. Activity will be as tolerated. Diet will be consistent carb diabetic. Medications as noted above. The patient has been started on albuterol and Dulera for her COPD per GOLD guidelines. She has been placed on 4 additional days of amoxicillin and doxycycline to cover her pneumonia and her urinary tract infection. She additionally will need to complete a prednisone taper as noted above. She can continue her other usual medications. She understands her new diagnosis of COPD and understands that she may benefit from following up with a biostatistics teacher as an outpatient. She will likely need formal pulmonary function testing for her diagnosis. She will need to follow up with her primary care provider in 4 to 7 days. She has been instructed to return to the emergency room or nearest hospital for any worsening of symptoms, shortness of breath, lightheadedness, dizziness, chest discomfort, high fevers, chills, night sweats, loss of consciousness, or any other worrisome signs or symptoms. This is a summarized report of a complex medical history and hospital stay. For further details, please see the entire medical record. TIME SPENT: Approximately 45 minutes were spent on this discharge. GRECIA DUFFY NP [id number]/[facility] #: [id number] KIERA
== END 2018-06-30 12:48 | disposition home or self-care (01) | DRG 871 ==
LOC: ED 10:16 → MEDTELE 13:55
PROVIDERS: ADMIT Internal Medicine; ATTEND Internal Medicine
DX: A41.9 Sepsis, unspecified organism (principal); J18.9 Pneumonia, unspecified organism; J96.01 Acute respiratory failure with hypoxia; I50.23 Acute on chronic systolic (congestive) heart failure; N39.0 Urinary tract infection, site not specified; J44.1 Chronic obstructive pulmonary disease with (acute) exacerbation; E66.2 Morbid (severe) obesity with alveolar hypoventilation; Z68.42 Body mass index [BMI] 45.0-49.9, adult; J44.0 Chronic obstructive pulmonary disease with (acute) lower respiratory infection; B96.1 Klebsiella pneumoniae [K. pneumoniae] as the cause of diseases classified elsewhere; Z66 Do not resuscitate; I11.0 Hypertensive heart disease with heart failure; I48.91 Unspecified atrial fibrillation; E11.51 Type 2 diabetes mellitus with diabetic peripheral angiopathy without gangrene; E11.65 Type 2 diabetes mellitus with hyperglycemia; E11.621 Type 2 diabetes mellitus with foot ulcer; L97.529 Non-pressure chronic ulcer of other part of left foot with unspecified severity; I25.5 Ischemic cardiomyopathy; I44.7 Left bundle-branch block, unspecified; E78.5 Hyperlipidemia, unspecified; Z96.652 Presence of left artificial knee joint; G47.33 Obstructive sleep apnea (adult) (pediatric); Z79.01 Long term (current) use of anticoagulants; Z79.4 Long term (current) use of insulin; Z79.899 Other long term (current) drug therapy
CPT/HCPCS: 36415; 71046; 80048; 80053; 81003; 81015; 82550; 82553; 82947; 83605; 83735; 83880; 84484; 85025; 86140; 87040; 87070; 87077; 87086; 87186; 87205; 87899; 93005; 94640; 99284; A9270-GY; G8978-GP-CI; G8979-GP-CI; G8980-GP-CI; J0456; J0696; J1940; J2930; J7512

== ENCOUNTER 2019-06-18 08:50 | Observation (INO) | payer MEDICARE, BC ==
--- NOTE | 2019-06-18 09:19 | ED ---
HPI Diabetic - HPI Summary HPI Summary: This patient is a 79 year old female with a history of diabetes brought in by EMS presenting to [facility] with a chief complaint of low blood glucose. EMS states they have been called 3 days in a row for low blood glucose in the 20s with associated altered mental status. She was administered D50 by EMS and they were able to get her blood glucose to around 110 by arrival to the ED.PT also ate peanut butter and crackers. She states they increased her Insulin to 80 units in the morning approx 1 month ago. She states her glucose readings during the day recently has been as low as the 40s-50s. . She reports a productive cough with a yellow sputum for approximately 2 weeks. Denies fevers, chills. She reports abdominal pain due to fluid retention over the last couple of weeks, which she states she takes Torsemide for which also had a medication increase 3 days ago. She denies fever, chest pain, diarrhea, SOB, dysuria and urinary frequency. She states she started antibiotics Tuesday and states she has taken them over the last 3 days for a foot wound (review of pharmcy meds = Bactrim - She was prescribed Bactrim 6 days ago on 06/12/2019 per medical records) Patient states she is scheduled for right foot surgery in [place] on Tuesday.Patient medications reviewed this visit as entered in EMR. - History Of Current Complaint Chief Complaint: EDDiabeticProb Time Seen by Provider: 06/18/19 09:06 Hx Obtained From: Patient, EMS, Medical Records Onset/Duration: Lasting Days Alleviating: EMS Treatment Associated Signs & Symptoms: Abdominal Pain - Allergies/Home Medications Allergies/Adverse Reactions: Allergies Allergy/AdvReac Type Severity Reaction Status Date / Time No Known Allergies Allergy Verified 06/18/19 09:15 Home Medications: Home Medications Metformin ER (NF) [Glucophage ER 750 MG TAB (NF)] 750 mg PO DAILY 06/18/19 [ History Confirmed 06/18/19] Sulfamethox/Trimethoprim DS* [Bactrim DS 800/160 TAB*] 1 tab PO BID 06/18/19 [ History Confirmed 06/18/19] PMH/Surg Hx/FS Hx/Imm Hx Previously Healthy: No Endocrine/Hematology History: Reports: Hx Anticoagulant Therapy - eliquis, Hx Diabetes, Hx Anemia Cardiovascular History: Reports: Hx Coronary Artery Disease, Hx Hypercholesterolemia, Hx Hypertension, Hx Myocardial Infarction Respiratory History: Reports: Hx Chronic Obstructive Pulmonary Disease (COPD) GI History: Reports: Hx Hiatal Hernia History: Reports: Hx Kidney Stones Denies: Hx Kidney Infection, Hx Renal Disease Musculoskeletal History: Reports: Hx Arthritis, Other Musculoskeletal History - shoulder knee surgery Sensory History: Reports: Hx Contacts or Glasses Denies: Hx Hearing Aid Opthamlomology History: Reports: Hx Contacts or Glasses - Cancer History Cancer Type, Location and Year: Uterine CA initial dx 1989 - Surgical History Surgery Procedure, Year, and Place: [place], hysterectomy hernia repair gastroplasty Hx Anesthesia Reactions: No Infectious Disease History: No Infectious Disease History: Denies: Traveled Outside the [place] in Last 30 Days - Family History Known Family History: Positive: Diabetes Negative: Renal Disease - Social History Alcohol Use: None Hx Substance Use: No Substance Use Type: Reports: None Hx Tobacco Use: No Smoking Status (MU): Never Smoked Tobacco Have You Smoked in the Last Year: No Review of Systems Negative: Fever, Chills Negative: Chest Pain Positive: Cough. Negative: Shortness Of Breath Positive: Abdominal Pain. Negative: Diarrhea Negative: dysuria, frequency Neurological: Other - Altered mental status, resolved All Other Systems Reviewed And Are Negative: Yes Physical Exam - Summary Physical Exam Summary: Vital Signs Reviewed: Yes A+Ox3, no distress, poor historian Eyes: Conjunctiva Clear, WALTER. EOM intact and full ENT: Hearing grossly normal TM x 2 clear, mmoist, uvula midline, no exudate, no erythema Neck: Positive: Supple Respiratory: Positive: No respiratory distress, No accessory muscle use + CTA throughout no w/r Cardiovascular: RRR nl s1, s2 no m/r CBT <2 sec 2+ edema b/l LE abd soft + BS nt, mild distension, no guarding, no distension Musculoskeletal Exam: ORTIZ x 4 without difficulty Strength Intact, ROM Intact Left foot - trans MT amputation - old surgery, well appearing right foot: pt with quarter size, oozing lesion base base 4th/5th toes, + slight odor, scant bleeding, no erythema, no fluctance Neurological: Positive: Alert, + sensation throughout Psychological: Positive: Normal Response To examiner Skin: Positive: see RLE Triage Information Reviewed: Yes Vital Signs On Initial Exam: Initial Vitals Temp Pulse Resp BP Pulse Ox 95.6 F 70 18 97/65 95 06/18/19 08:55 06/18/19 08:55 06/18/19 08:55 06/18/19 08:55 06/18/19 08:55 Vital Signs Reviewed: Yes Diagnostics - Vital Signs Vital Signs Temp Pulse Resp BP Pulse Ox 06/18/19 08:55 95.6 F 70 18 97/65 95 - Laboratory Result Diagrams: 06/18/19 09:19 06/18/19 09:19 Lab Statement: Any lab studies that have been ordered have been reviewed, and results considered in the medical decision making process. - Radiology CXR Radiology Interpretation Completed By: Radiologist Summary of Radiographic Findings: Limited exam due to large body habitus with probable pulmonary vascular congestion and interstitial edema in the correct clinical setting. ED Provider has reviewed this report. Re-Evaluation - Re-Evaluation First Eval Re-Evaluation Time: 11:25 Comment: Patient will be admitted, nurse informed. Diabetic Course/Dx - Course Course Of Treatment: Patient presents to [facility] [place] for evaluation by EMS. Patient is a known diabetic who takes 80 units of Lantus in the morning. Per EMS, the last 3 consecutive mornings called because she has had hypoglycemia with readings in the 20s to 30s. Patient's normal, but D50. This morning, patient agreed to come the emergency department for further evaluation. Patient states she did not talk to her doctor about her low sugars. Patient was also started recently on Bactrim for infection of her right foot. Patient states she scheduled for surgery on Tuesday and is unsure whether the plan is to do an amputation not. Patient denies chest pain or shortness of breath. States she does have a cough with some yellow sputum. No fevers or chills. No change in her bowel or bladder. Patient states she did eat a normal dinner last night. On exam patient was noted to be markedly hypothermic with a rectal temperature of 93. Patient heart and lungs sound good. Patient's vital signs are otherwise okay. Patient does have a quarter sized strain wound on her right foot. We'll check labs every 15 minute glucose wound CMP sedimentation rate and reassess. We'll discuss with hospitalist given her recurrent hypoglycemia, and hypothermia, and the wound for observation. Discharge ED - Sign-Out/Discharge Documenting (check all that apply): Patient Departure - Admission - Discharge Plan Condition: Stable Disposition: ADMITTED TO [facility] Referrals: Damaso Sylvester MD [Primary Care Provider] - - Attestation Statements Document Initiated by Scribe: Yes Documenting Scribe: Larry Pino Provider For Whom Scribe is Documenting (Include Credential): Ivette Gordon MD Scribe Attestation: Larry Borden, scribed for Ivette Gordon MD on 06/18/19 at 1153.
[2019-06-18 09:31] LABS: ABS Eosinophils 0.1 10^3/ul (0-0.6); ABS Lymphocytes 0.3 10^3/ul (1.0-4.8); ABS Monocytes 0.3 10^3/ul (0-0.8); ABS Neutrophils 4.3 10^3/ul (1.5-7.7); Eosinophil % 1.1 %; Hematocrit 35 % (35-47); Lymphocyte % 6.6 %; Mean Corpuscular HGB Conc 31 g/dL (31-36); Mean Corpuscular Hemoglobin 26 pg (27-31); Mean Corpuscular Volume 84 fL (80-97); Nucleated Red Blood Cells % 0.3; Red Blood Count 4.22 10^6 /uL (3.70-4.87); Red Cell Distribution Width 21 % (10-15); White Blood Count 5.1 10^3/uL (3.5-10.8)
[2019-06-18] MEDS ORDERED: NS 0.9% 1000 ML** 1,000 ML IV ONE (09:41)
[2019-06-18 09:47] LABS: Albumin 3.4 g/dL (3.2-5.2); Albumin/Globulin Ratio 0.9 (1-3); BUN/Creatinine Ratio 29.7 (8-20); EGFR African American 57.5 (>60); EGFR Non-African American 47.5 (>60); Magnesium 2.1 mg/dL (1.9-2.7); Potassium 4.2 mmol/L (3.5-5.0); Total Bilirubin 1.5 mg/dL (0.2-1.0); Total Protein 7.4 g/dL (6.4-8.9)
[2019-06-18 10:12] LABS: Mean Platelet Volume 8.5 fL (7.4-10.4); Platelet Count 94 10^3/uL (150-450)
[2019-06-18 10:55] LABS: Urine Appearance Clear; Urine Bilirubin Negative (Negative); Urine Blood Negative (Negative); Urine Color Yellow; Urine Glucose Negative (Negative); Urine Ketones Negative (Negative); Urine Nitrite Negative (Negative); Urine Protein Negative (Negative); Urine Specific Gravity 1.011 (1.010-1.030); Urine Urobilinogen Positive (Negative)
[2019-06-18 11:03] LABS: C Reactive Protein 9.19 mg/L (<8.01)
[2019-06-18 11:31] LABS: TSH (Thyroid Stimulating Horm) 5.47 mcIU/mL (0.34-5.60)
[2019-06-18] MEDS: NS 0.9% 1000 ML** 1,000 ML IV SCH ×2 (12:07→15:44)
[2019-06-18] MEDS: Cephalexin CAP* 500 MG PO SCH ×3 (15:44→20:14)
[2019-06-18] MEDS: Pregabalin 50 mg CAP (*) PO SCH ×2 (15:44→20:13)
[2019-06-18] MEDS: Heparin VIAL(*) 5000 UNITS/ML VIAL (FIVE THOUSAND) SUBCUT SCH ×2 (15:45→20:14)
--- NOTE | 2019-06-18 15:49 | HP ---
CC: Dr. Sylvester; Dr. Michel * HISTORY AND PHYSICAL: DATE OF ADMISSION: 06/18/19 PROVIDER: Jigna King NP. PRIMARY CARE PHYSICIAN: Dr. Sylvester. ATTENDING PHYSICIAN WHILE IN THE HOSPITAL: Dr. Mariola Walton * (dictated by Jigna Knig NP). CHIEF COMPLAINT: Low blood sugar. HISTORY OF PRESENT ILLNESS: Ms. Kaufman is a 79-year-old female with a past medical history significant for paroxysmal atrial fibrillation, hyperlipidemia, history of uterine cancer, hypertension, restless leg syndrome, dilated cardiomyopathy, vitamin B12 deficiency, type 2 diabetes with peripheral neuropathy, who presented to the emergency room with complaints of hypoglycemia , hypothermia. The patient reports that for the past 4 days she has had low blood sugars at home. She reports that her blood sugar has been 190 at night and has been in the 20s to 40s in the a.m. The patient reports that her only associated symptom with low blood sugar is feeling cold. The patient does report that she has been checking her blood sugar 2 to 3 times a day and has had consistently low blood sugars in the morning. The patient does report that she recently had her Lantus increased to 80 units subcu daily and since then she has started experiencing hypoglycemia The patient also reports that she has had swelling in her abdomen. She saw Dr. Sylvester on Tuesday. At that time, she had her torsemide increased to 20 mg b.i.d. The patient reports she started that on Tuesday and does report that the swelling in her abdomen has improved since increasing her diuretics. The patient denies any increased shortness of breath. She denies any increased shortness of breath when lying flat or exertional dyspnea. While in the emergency room, the patient had routine lab work drawn. She was initially found to have a blood sugar in the 20s with altered mental status at home. She was given an amp of D50 by EMS. Her blood sugar was 110 on arrival to the emergency room. The patient's blood sugar has been checked every 15 minutes while in the emergency room and is trending down. Her last blood sugar was 79. Due to her episode of hypoglycemia x4 days, Hospital Medicine was asked to see and evaluate her for admission. Of note, the patient does report that she is scheduled to have a bunion surgery for an infected bunion on Tuesday at [place], and she is currently supposed to be taking Bactrim DS and has been wearing Unna boots at home. She does report that she has had wound on this foot for over a year that has been getting better.. PAST MEDICAL HISTORY: Significant for, 1. Type 2 diabetes, on Lantus. 2. Hypertension. 3. Paroxysmal atrial fibrillation. 4. Nonischemic cardiomyopathy. 5. Dilated cardiomyopathy. 6. Obstructive sleep apnea, noncompliant with CPAP. 7. Restless leg. 8. Morbid obesity. 9. History of uterine cancer. 10. History of congestive heart failure. 11. Hyperlipidemia. PAST SURGICAL HISTORY: 1. Cardiac catheterization in 2014, which was normal. 2. Cholecystectomy. 3. Gastric bypass. 4. Hysterectomy. 5. Umbilical hernia repair. 6. Toe amputation to the left foot x3 toes. 7. Three partial toe amputations on the left foot. 8. Appendectomy. 9. Left shoulder rotator cuff repair. 10. Left total knee arthroplasty. MEDICATIONS: Home medications include: 1. Atorvastatin 40 mg p.o. daily. 2. Vitamin B12 one tablet p.o. daily. 3. Eliquis 5 mg 1 tablet twice daily. 4. Lantus 80 units subcu at bedtime. 5. Metformin 750 mg every evening. 6. Metoprolol succinate 25 mg p.o. daily. 7. Mirapex 1 mg at bedtime. 8. Lyrica 50 mg 3 times a day. 9. Torsemide 20 mg 1 tablet twice daily. ALLERGIES: No known drug allergies. FAMILY HISTORY: Father in a farm accident, suspected to be related to heart disease. No reported history of diabetes. Maternal grandmother with stomach cancer. Brother with esophageal cancer. SOCIAL HISTORY: Denies any tobacco, alcohol, or illicit drug use. She is . She lives with her . Surrogate decision maker in the event she is unable to make her own decisions is her daughter. She is a full code. REVIEW OF SYSTEMS: The patient denies any fever, chills, unintended weight loss. She does report a 6-pound weight gain x1 week. She denies any chest pain. She does report swelling to her abdomen. She does report a cough x2 weeks, which is improving. No hemoptysis or shortness of breath. No nausea, vomiting, diarrhea, abdominal pain, hematuria, or dysuria. Denies any focal weakness, sensory loss, visual complaints, dysphagia, arthralgias, or myalgias. She does report open sores to her right lateral foot and left foot that are better, she has had them x1 year. She does complain of drainage to the right foot. Denies any psychosis or anxiety. PHYSICAL EXAMINATION GENERAL: At this time, Ms. Kaufman is a 79-year-old female. She is alert and oriented. Morbidly obese female. Resting on the stretcher in the emergency room. She is in no acute distress. VITAL SIGNS: Blood pressure 107/59, heart rate is 88, atrial fibrillation on the monitor, respirations are 18, O2 saturation 93% to 94% on room air. HEENT: Head is atraumatic, normocephalic. Eyes, EOMs are intact. Sclerae anicteric and not pale. Oral mucosa is moist. NECK: Supple. LUNGS: Lungs are diminished but clear to auscultation bilaterally. No wheezes , rales, or rhonchi. CARDIAC: S1, S2. Irregular rate and rhythm. No rubs or gallops. ABDOMEN: Obese, soft, nontender. Bowel sounds are present x4. I would say slightly firm to palpation. EXTREMITIES: She is able to to move all 4 extremities. There is no clubbing or cyanosis. She does have reddish discoloration to bilateral lower legs. She does have an open ulceration noted to her right lateral foot with some bloody purulent drainage with mild surrounding erythema noted to the left side of her foot. NEUROLOGIC: She is awake, alert, and oriented x3. Speech is clear. Thought process is intact. There are no gross focal deficits. SKIN: She does have an open area to the right lateral foot with bloody purulent drainage, small amount, small open area wound. LABORATORY DATA AND DIAGNOSTIC STUDIES: WBCs are 5.1, RBCs 4.22, hemoglobin 11.0, hematocrit is 35, platelet count is 94. Sodium 139, potassium 4.2, chloride 104, carbon dioxide is 28, anion gap of 7, BUN was 33, creatinine 1.11. Glucose 76, repeat is 79. Calcium 9.0, magnesium 2.1, total bilirubin 1.50, AST was 31, ALT was 15, alkaline phosphatase is 41. C-reactive protein 9.19. BNP 137. TSH is 5.47. Cortisol is currently pending. ESR is pending. Urine was within normal limits with the exception of urobilinogen was positive. She had a chest x-ray, radiologist's impression: Limited exam due to body habitus. Probable pulmonary vascular congestion and interstitial edema in the current clinical setting. ASSESSMENT AND PLAN: Ms. Kaufman is a 79-year-old female with past medical history significant for a history of congestive heart failure, dilated cardiomyopathy, paroxysmal atrial fibrillation, hyperlipidemia, hypertension, type 2 diabetes, who presented to the emergency room with complaints of hypoglycemia and hypothermia. She will be admitted under observation for: 1. Hypoglycemia. The patient did recently had her Lantus increased to 80 units subcu daily, I suspect this is could be the cause of her hypoglycemia. We will hold her Lantus and metformin. I will monitor Accu-Cheks every 2 hours and treat as needed. Call for blood sugar less then 80 or greater than 250. I will also add on a hemoglobin A1c, which is currently pending. Will likely need Lantus reduced at discharge. 2. Paroxysmal atrial fibrillation. The patient does have chronic paroxysmal atrial fibrillation. She does take metoprolol. We will continue her metoprolol succinate 25 mg p.o. daily. The patient is currently on Eliquis 5 mg b.i.d. The patient is scheduled to have surgery on Tuesday at [place] and was instructed to stop her Eliquis today. We will hold her Eliquis at this time due to her pending surgery on Tuesday. 3. Hypertension. The patient is normotensive at this time. We will continue to monitor her blood pressure. 4. History of congestive heart failure. The patient is not in acute exacerbation of her congestive heart failure. The patient recently had her torsemide increased to 20 mg twice daily. I will continue her on the torsemide 20 mg daily as her systolic blood pressure is in the 100's.. We will monitor her blood pressure. 5. Type 2 diabetes. We will hold her Lantus and metformin as the patient has had 4 days of hypoglycemia. continue with Q2 hour fingersticks. 6. Hypothermia, resolved. The patient was hypothermic when she came in with a temperature of 95.6. She did have a Kalin Hugger on her. Temperature is now 97.0. We will continue to monitor. 7. Dilated cardiomyopathy. The patient does have a history of dilated cardiomyopathy, for which she follows with Dr. Michel as an outpatient. Her last known echocardiogram was on 04/10/18. At that time, she had an estimated ejection fraction of 45% with mildly reduced LV systolic function, global hypokinesis, [id number] left ventricular hypertrophy with severe left atrial enlargement, moderate right heart enlargement with reduced right ventricular contractility, severe tricuspid regurgitation, severe elevation in pulmonary artery pressure. We will continue to monitor the patient. She will be placed on telemetry and monitored throughout her hospitalization. At this time, the patient has no chest pain and is currently not short of breath. 8. Restless leg. The patient can continue on her Mirapex as previously prescribed and Lyrica. 9. Right foot ulcer. Patient has pending surgery on Tuesday in [place] for right foot ulcer. Was placed on Bactrim as outpatient. Given the patient renal function and culture negative for MRSA, will start her on Keflex 500 mg QID. Last available wound culture was sensitive to cefazolin. 10. FEN: She can have a heart healthy, consistent carbohydrate diet. 11. DVT prophylaxis: I will place her on heparin subcu. as her Eliquis is on hold for surgery on Tuesday, If surgery is cancelled would resume Eliquis as soon as possible. TIME SPENT: Time spent on this admission was 60 minutes. Greater than half that time was spent at the bedside reviewing the events leading thus far to her hospitalization, performing physical exam, and reviewing my plan of care. I have discussed this with my attending Dr. Mariola Walton, she is in agreement with my plan. JIGNA KING, ISSA [id number]/[facility] #: [id number] [facility] HOSPITALGuille
[2019-06-18] MEDS ORDERED: Atorvastatin* 20 MG TAB PO SCH (18:00)
[2019-06-18] MEDS: Nystatin TOP POWDER* 15 GM BTL TOPICAL SCH (20:15)
[2019-06-18] MEDS ORDERED: Pramipexole TAB* 0.5 MG PO SCH (21:00)
[2019-06-18] MEDS ORDERED: Apixaban* 5 MG TAB PO SCH (21:00)
[2019-06-18] MEDS ORDERED: Sulfamethox/Trimethoprim DS 800/160* TAB PO SCH (21:00)
[2019-06-19] MEDS: NS 0.9% 1000 ML** 1,000 ML IV SCH (02:12)
[2019-06-19] MEDS: Heparin VIAL(*) 5000 UNITS/ML VIAL (FIVE THOUSAND) SUBCUT SCH (06:09)
[2019-06-19 06:24] LABS: ABS Eosinophils 0.1 10^3/ul (0-0.6); ABS Lymphocytes 0.6 10^3/ul (1.0-4.8); ABS Monocytes 0.4 10^3/ul (0-0.8); ABS Neutrophils 3.1 10^3/ul (1.5-7.7); Eosinophil % 2.3 %; Hematocrit 34 % (35-47); Hemoglobin 10.9 g/dL (12.0-16.0); Mean Corpuscular HGB Conc 32 g/dL (31-36); Mean Corpuscular Hemoglobin 26 pg (27-31); Mean Corpuscular Volume 82 fL (80-97); Nucleated Red Blood Cells % 0.5; Platelet Count 108 10^3/uL (150-450); Red Blood Count 4.14 10^6 /uL (3.70-4.87); Red Cell Distribution Width 21 % (10-15); White Blood Count 4.2 10^3/uL (3.5-10.8)
[2019-06-19 07:14] LABS: BUN/Creatinine Ratio 29.5 (8-20); EGFR African American 56.9 (>60); Potassium 4.9 mmol/L (3.5-5.0)
[2019-06-19 08:12] VITALS: BP 112/67
[2019-06-19] MEDS: Pregabalin 50 mg CAP (*) PO SCH (08:24)
[2019-06-19] MEDS: Cephalexin CAP* 500 MG PO SCH (08:24)
[2019-06-19] MEDS: Nystatin TOP POWDER* 15 GM BTL TOPICAL SCH (08:24)
[2019-06-19] MEDS ORDERED: Multivitamins/Minerals TAB PO SCH (09:00)
[2019-06-19] MEDS ORDERED: Torsemide TAB* 20 MG PO SCH ×2 (09:00)
[2019-06-19] MEDS ORDERED: Metoprolol Succinate XL TAB* 25 MG PO SCH (09:00)
--- NOTE | 2019-06-19 11:59 | DS ---
CC: Dr. Sylvester * DATE OF ADMISSION: 06/18/2019. DATE OF DISCHARGE: 06/19/2019. PRIMARY CARE PHYSICIAN: Dr. Sylvester. ATTENDING PHYSICIAN WHILE IN THE HOSPITAL: Dr. Mariola Walton * (dictated by SHERWIN Sage). PRIMARY DIAGNOSIS: Hypoglycemia with hypothermia. SECONDARY DIAGNOSES: 1. Diabetes mellitus type 2. 2. Hypertension. 3. Paroxysmal A-fib. 4. Nonischemic cardiomyopathy. 5. Heart failure due to ejection fraction with EF of 40 to 45 percent. 6. Dilated cardiomyopathy. 7. JOSHUA, noncompliant with CPAP. 8. Restless leg. 9. Morbid obesity. 10. History of uterine cancer. 11. Hyperlipidemia. PERTINENT LAB DATA : 1. Hemoglobin A1c 7.2, blood glucose on the date of discharge range of 79 to 140s. 2. White blood cell count 5.1. HISTORY OF PRESENT ILLNESS/HOSPITAL COURSE: Nicole Kaufman is a 79-year-old, white female with a past medical history significant for diabetes mellitus type 2, hypertension, restless leg syndrome, heart failure due to ejection fraction, hyperlipidemia, and paroxysmal A-fib who presented to the emergency department due to hyperglycemia episodes at home for several days. The patient additionally reports to the emergency room due to feeling cold. Upon evaluation by emergency services at home, her blood glucose was in the 20s and she has had altered mental status. EMS administered an ampule of D50 and her blood glucose was in normal range upon arrival to the emergency department. Though upon arrival to the emergency department, her temperature was 95.6 degrees Fahrenheit and Kalin Hugger was administered and ultimately her body temperature and returned to normal level. The patient was admitted to the hospital. Her home diabetic medication was held and her blood glucose was checked every two hours. The patient ultimately had safe return to normal glucose. She did have minimally low glucose in the 60s overnight; however, the patient admits to me this morning that she did not eat very much dinner last night. She and I had a thorough discussion about maintaining the same amount of food every meal and if needed to eat snacks daily. The patient's hypothermia on presentation was likely secondary to her severe hypoglycemia and I have no suspicion for sepsis at this time as the patient had no other signs at arrival as she had a normal heart rate and normal respiratory rate and her white blood cell count was within normal limits. Her hemoglobin A1c was found to be 7.2 which indicates good control given her age and her comorbidities and I do not believe she needs to have stricter glycemic control at this time. On the day of discharge, the patient is asymptomatic. Denies visual changes or feelings of chills or fever, any abdominal pain, nausea or vomiting. PHYSICAL EXAMINATION ON THE DAY OF DISCHARGE: General: Morbidly obese, white female sitting in a hospital chair, appearing comfortable, in no acute distress. HEENT: Eyes: PERRLA. Sclerae anicteric. ENT: Mucous membranes are moist. Lungs: Clear to auscultation throughout. Cardio: Regular rate and rhythm without murmurs, rubs, or gallops. Abdomen: Soft, nontender, nondistended. Extremities: Trace pitting edema in bilateral lower extremities pretibially with chronic skin changes consistent with vascular insufficiency. Bandage to right foot is clean, dry, and intact. Neuro: The patient is alert and oriented times three and able to move all extremities. DISCHARGE PLAN: The patient has a planned surgery at a [facility] surgical center tomorrow. She and I discussed that she will not take any insulin for the rest of the day today and she should not take any tomorrow given that she will be NPO for her surgery tomorrow. Her surgeon has advised her Eliquis be held and this was discussed with her as well. Given that good glycemic control will be particularly important in the setting of her surgery that is anticipated tomorrow, I believe that this patient would benefit greatly from home diabetic nurse education and we will establish this at discharge. The patient has a hemoglobin A1c which indicates fair control and prior to her new regimen of 80 units of Lantus a day, she was recently on 40 units daily and we will return back to this and discontinue the Metformin given her risk of hypoglycemia and this medications associated risk of this. The patient was advised to use the newly prescribed Glucagon if her hyperglycemia is severe at home of less than 50 and to EMS using this. She is advised to continue checking her blood sugar, but she should increase to taking it four times a day and recording it, a.c. and at bedtime, and whenever needed for symptom of hyper- or hypoglycemia. She should follow-up with her primary care provider within one week. She should report to her surgery as previously scheduled. She should return to the emergency department is she is experiencing hypoglycemia symptoms of visual changes, chest pain, difficulty breathing, fevers, chills, or red streaking of her extremities. Additionally, her Bactrim was changed to Keflex during her hospital stay and this will be continued. DISCHARGE MEDICATIONS: New medications: 1. 40 units of Lantus subcu q.a.m. 2. Glucagon 1 mg injection q.15 minutes prn severe hypoglycemia. 3. Keflex 500 mg p.o. q.i.d. times 1 day. Continued home medications: 1. Albuterol one to two puffs inhaled q.4 hours prn shortness of breath/ wheezing. 2. Eliquis 5 mg p.o. b.i.d. (patient is to hold this until directed to restart by her surgeon). 3. Lipitor 40 mg p.o. daily. 4. Vitamin B12 1,000 mcg sublingual daily. 5. Multivitamin one tab p.o. daily. 6. Pramipexole 1 mg p.o. at bedtime. 7. Lyrica 50 mg p.o. t.i.d. 8. Torsemide 20 mg p.o. b.i.d. 9. Metoprolol Succinate 25 mg p.o. daily. Discontinue home medications: 1. Metformin. 2. Lantus 80 units subcu daily. 3. Bactrim. DIET: Carbohydrate consistent diet. ACTIVITY: Patient may return to her activity as tolerated. CONDITION ON DISCHARGE: Stable. DISPOSITION: Home. TIME SPENT: Approximately 40 minutes were spent on this discharge, approximately half that time was spent at the bedside evaluating the patient and discussing the plan of care. SHERWIN SAGE [id number]/[facility] #: [id number] MTDGuille
== END 2019-06-19 11:30 | disposition home or self-care (01) ==
LOC: ED 08:50 → MED 12:09
PROVIDERS: ADMIT Internal Medicine; ATTEND Internal Medicine
DX: E11.649 Type 2 diabetes mellitus with hypoglycemia without coma (principal); T68.XXXA Hypothermia, initial encounter; I48.0 Paroxysmal atrial fibrillation; I42.8 Other cardiomyopathies; I11.0 Hypertensive heart disease with heart failure; I50.20 Unspecified systolic (congestive) heart failure; G47.33 Obstructive sleep apnea (adult) (pediatric); G25.81 Restless legs syndrome; E78.00 Pure hypercholesterolemia, unspecified; I25.2 Old myocardial infarction; E66.01 Morbid (severe) obesity due to excess calories; Z85.42 Personal history of malignant neoplasm of other parts of uterus; E78.5 Hyperlipidemia, unspecified; Z79.01 Long term (current) use of anticoagulants; Z79.899 Other long term (current) drug therapy; Z87.442 Personal history of urinary calculi
CPT/HCPCS: 36415; 71045; 80048; 80053; 81003; 82533; 82550; 83036; 83605; 83735; 83880; 84443; 85025; 85060; 85652; 86140; 87040; 87070; 87077; 87186; 87205; 87640; 87641; 96360; 96361; 96372; 99285; A9270-GY; G0378; J1644

== ENCOUNTER 2019-06-27 13:39 | Inpatient (IN) | payer MEDICARE, BC ==
--- OUTSIDE RECORDS SUMMARY | 2019-06-27 14:07 | XMS REPORT | Summary of Care ---
:1940 Author Organization [facility] Address [address] [facility] [place] [address] Care Team Providers Name Role Phone HiginioKostabritney Freitas Primary Care Provider Philippe Jenkins MD Primary Assembly Supervisor/Mountain Services Manager Arely Swan RN Signallamp Endocrinology Teacher Unavailable Reason for Visit Reason Comments Follow Up Follow up heart failure Encounter Details Date Type Department Care Team Description 06/12/2019 Office Visit Rajinder Purvis PA Congestive heart failure, unspecified HF chronicity, unspecified heart failure type (HCC) (Primary Dx); Cardiology 1 [facility] Mitral valve insufficiency, unspecified etiology; [address] [facility] [place] [address] Essential hypertension; [place] [address] Dilated cardiomyopathy (HCC); [phone] Paroxysmal atrial fibrillation (HCC); (Fax) Mixed hyperlipidemia Allergies No Known Allergiesdocumented as of this encounter (statuses as of 06/12/2019) Medications Medication Sig Dispensed Refills Start Date End Date Status Glucose Blood In Vitro 100 Strips by In 100 Strip 3 01/11/2017 Active StripIndications: Vitro route Diabetes mellitus DAILY. contolled without complication insulin (HCC) dependent diabetes. Test 1x per day Insulin Pen Needle Inject 1 Device 100 Each 0 12/29/2017 Active (1ST TIER UNIFINE beneath the skin PENTIPS) 31G X 5 MM DAILY. Does not apply Misc spironolactone Take 1 Tab by 90 Tab 3 04/19/2018 Active (ALDACTONE) 25 MG Oral mouth DAILY. TabIndications: Pulmonary hypertension (HCC) Misc. Devices 1 Device by Does 1 Each 0 06/27/2018 Active (BARIATRIC ROLLATOR) not apply route Does not apply DIRECTED. MiscIndications: Needs with Reduced mobility, wheels, seat and Morbid obesity (HCC) basket pramipexole (MIRAPEX) TAKE 1/2 TABLET 90 Tab 3 10/02/2018 Active 1 MG Oral Tab BY MOUTH 2-3 HOURS BEFORE BEDTIME. MAY INCREASE TO 1 TABLET AT BEDTIME NEEDED metoprolol succinate Take 1 Tab by 90 Tab 3 12/04/2018 Active (TOPROL XL) 25 MG Oral mouth DAILY. TABLET SR 24 HRIndications: Permanent atrial fibrillation Multiple Take 1 Tab by 0 Active Vitamins-Minerals mouth DAILY. (MULTIVITAMIN ADULT PO) Cyanocobalamin Take 1 Tab by 0 Active (VITAMIN B 12 PO) mouth DAILY. atorvastatin (LIPITOR) TAKE ONE TABLET 90 Tab 5 04/02/2019 Active 40 MG Oral BY MOUTH EVERY TabIndications: DAY Essential hypertension Insulin Glargine Inject 80 Units 15 mL 4 04/05/2019 Active (LANTUS SOLOSTAR) 100 beneath the skin UNIT/ML Subcutaneous EVERY BEDTIME. Solution Pen-injector metFORMIN HCL 750 MG Take 1 Tab by 90 Tab 5 04/05/2019 04/04/2020 Active Oral TABLET SR 24 HR mouth EVERY EVENING. pregabalin (LYRICA) 50 TAKE ONE CAPSULE 90 Cap 5 05/21/2019 Active MG Oral Cap BY MOUTH THREE TIMES A DAY; MAXIMUM DAILY DOSE = 3 ELIQUIS 5 MG Oral Tab TAKE ONE TABLET 60 Tab 11 05/21/2019 Active BY MOUTH TWICE A DAY Additional information Patient taking differently: 5 mg Oral BID, (No instructions reported), Reported on 06/06/2019 10:54 AM torsemide (DEMADEX) 20 MG Take 1 Tab by mouth TWICE 60 Tab 11 06/07/2019 Active Oral Tab DAILY. 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 Patient on Eliquis. Managed by [facility] Referring Provider: Katherine Indication: Afib Target Range: 2.0-3.0 Duration: :pmg Term CHADS2 score of 2 for HTN DM Update referral 09/2010, 01/2013, 05/31/14 Updated order 02/06/13, 06/30/14 Uterine cancer 05/01/2007 Overview: S/p RAYMOND/BSAysha 1989 Restless leg syndrome 05/01/2007 Dilated cardiomyopathy 05/01/2007 Morbid obesity 11/14/2006 Overview: BMI 51 Paroxysmal atrial fibrillation 11/14/2006 Mixed hyperlipidemia 11/14/2006 documented as of this encounter (statuses as of 06/12/2019) Resolved Problems Problem Noted Date Resolved Date Diabetic ulcer of toe of left foot associated with type 2 01/18/20192018 diabetes mellitus Osteomyelitis of toe 07/28/2018 04/05/2019 Overview: S/p surgery Dr Ashby podiatry [facility] summer 2018 REILLY (acute kidney injury) 07/28/2018 01/18/2019 Type 2 diabetes, controlled, with peripheral neuropathy 07/28/2018 01/18/2019 Sepsis 07/28/2018 01/18/2019 Encounter for long-term (current) use of other medications 02/02/20132018 Encounter for therapeutic drug monitoring 01/15/2010 07/08/2010 Encounter for therapeutic drug monitoring 12/04/2009 12/09/2009 Visit for screening mammogram 09/16/2009 05/18/2018 Overview: [facility] Replaced inactive diagnosis Diabetes mellitus, type II 11/14/2006 04/05/2019 Overview: HEMOGLOBIN A1C 6.3% 08/30 Cholecystitis, chronic 05/23/1989 01/18/2019 documented as of this encounter (statuses as of 06/12/2019) Immunizations Name Administration Dates Next Due Influenza (IM) Preservative Free 2013 Influenza (IM) W/Pres 02/21/2015 Influenza Vaccine 65 Yrs + 03/29/2019 Influenza Vaccine High Dose 01/31/2018, 03/03/2017, 04/19/2016, 04/12/2014 PNEUMOCOCCAL POLYSACCHARIDE VACCINE 11/21/2012 Pneumococcal Conjugate(13 Valent) 06/03/2014 TDAP Vaccine 11/21/2012 ZOSTER (ZOSTAVAX) VACCINE 01/14/2009 documented as of this encounter Social History Tobacco Use Types Packs/Day Years Used Date Never Smoker Smokeless Tobacco: Never Used Alcohol Use Drinks/Week oz/Week Comments No 2 Standard drinks or equivalent 2.0 Sex Assigned at Date Recorded Not on file Job Start Date Occupation Industry Not on file Not on file Not on file Travel History Travel Start Travel End No recent travel history available. documented as of this encounter Last Filed Vital Signs Vital Sign Reading Time Taken Comments Blood Pressure 120/84 06/12/2019 12:46 PM EST Pulse 76 06/12/2019 12:46 PM EST Temperature - - Respiratory Rate - - Oxygen Saturation - - Inhaled Oxygen Concentration - - Weight 141.5 kg (312 lb) 06/12/2019 12:46 PM EST Height - - Body Mass Index 53.55 06/06/2019 10:44 AM EST documented in this encounter Patient Instructions Patient InstructionsRajinder Breaux PA - 06/12/2019 12:40 PM EST TAKE TORSEMIDE 20MG TWICE DAILY. I WILL CHECK YOUR BLOOD WORK IN ONE WEEK. FOLLOW UP WITH ME, RAJINDER COURTNEY, ON 06/17/2019 Work on a LOW SODIUM diet and small portions for weight loss. Weigh yourself every morning before breakfast, write it down and compare to yesterday's weight. Follow a heart failure diet. Eat low salt foods. Take your medicine as prescribed, do not stop unless told to do so by your doctor. Balance activity and rest periods. Check for swelling in your feet, ankles, legs, and stomach. Call your doctor's office if you: Have a weight gain of 3 pounds in 1 day or a weight gain of 5 pounds or more in 1 week. Have more shortness of breath, or are feeling dizzy. Have more swelling of your feet, ankles, legs, or stomach Are feeling more tired or have decreased exercise tolerance. Have a dry, hacky cough or increased cough when lying down Are feeling uneasy, you know something is not right It's harder to breathe when lying down, and you sleep with more pillows, or have increased night time trips to urinate documented in this encounter Progress Notes Rajinder Breaux PA - 06/12/2019 12:40 PM EST [facility] Note Patient: Nicole Kaufman Date of : 1940 Date of Service: 06/12/2019 REFERRING PRACTITIONER: Lico Michel PRIMARY CARE PROVIDER: Damaso Sylvester Chief Complaint: Chief Complaint Patient presents with Follow Up Follow up heart failure History of Present Illness: We had the pleasure of seeing Nicole Kaufman today. She is a 79-y.o. female with a PMH of dilated nonischemic cardiomyopathy, permanent atrial fibrillation, JOSHUA not on CPAP, HTN, DM, pulmonary HTN, and morbid obesity. She presents today for follow up. She saw Dr. Michel last week, at which time she mention increase abdominal bloating with a 50lb weight gain. At that visit, Dr. Michel ordered a CMP, which showed normal kidney function with mildly abnormal LFTs. Dr. Michel asked she double her Torsemide [id number] daily to BID. Today, she says she got confused and never doubled her Torsemide. She thought she was supposed to see me prior to doubling the dose. By her scales, has gone up. By ours, it is about the same. Her breathing is the same as when we saw her last week and overall feels unchanged. Continues to try to keep a low sodium diet. Denies abdominal pain, nausea, vomiting, diarrhea. Constitutional: Patient denies fever, febrile illness. Denies fatigue. Neurologic: Denies transient ischemic attack or cerebrovascular accident signs or symptoms. Denies syncope or presyncopal episodes. Cardiovascular: denies chest pain, denies palpations, chronic lower extremity edema. Respiratory: chronic shortness of breath, Denies PND, denies orthopnea. Gastrointestinal: Denies melena. Genitourinary: Denies hematuria Musculoskeletal: denies claudication. All other remaining systems are negative. Except that stated above in history of present illness Cardiac Studies: TTE 04/10/18: FINAL IMPRESSION: Patient is in atrial fibrillation at the time of examination. Mild-moderate concentric LVH with severe left atrial enlargemnet. Mildly reduced LV systolic function with global hypokinesis; estimated LVEF 45%. Moderate right heart enlargement with mildly reduced RV contractility. Approximately severe tricuspid regurgitation. Severe elevation in estimated pulmonary arterial systolic pressure. No pericardial effusion. Compared to prior study 06/16/15, tricuspid regurgitation appears worse and estimated PASP is higher (53 mmHg --> 76 mmHg). Holter Monitor 01/11/17: FINDINGS: 1. The rhythm throughout the 24-hour recording was atrial fibrillation, with a minimum heart rate of 33 beats per minute, average heart rate of 70 beats per minute, and maximum heart rate of 144 beats per minute. 3% of the recording was spent in tachycardia and 20% in bradycardia, with a maximum R:R interval of 2.74 seconds. A total of 524 pauses greater than 2 seconds were noted , although the vast majority of these occurred during sleep hours, and none were longer than 2.7 seconds. 2. Rare, isolated ventricular and supraventricular ectopy was seen, totaling less than 1% of the recording. 3. A single patient diary event was recorded at 7:26 in the morning on 01/12/2017. This corresponded to atrial fibrillation with a heart rate of 95 beats per minute. CONCLUSION: 24-hour Holter monitor recording reveals atrial fibrillation with reasonable heart rate control and no symptomatic bradycardia as described above. TTE 06/16/2015: FINAL IMPRESSION: Patient is in atrial fibrillation at the time of examination. Mild concentric LVH with severe left atrial enlargement. Mildly reduced LV systolic function with global hypokinesis; calculated LVEF 43%. Moderate right heart enlargement with mildly reduced RV systolic function. Moderate tricuspid regurgitation. Moderate elevation in estimated pulmonary arterial systolic pressure. No pericardial effusion. Compared to prior study 11/06/2014, LVEF has slightly increased (35% --> 43%) and estimated PASP has improved (74mmHg--> 53mmHg). Other findings are largely similar. Left and Right Heart Cath 11/20/2014: CONCLUSION: 1. Normal coronary arteries. 2. Severe right heart failure with low cardiac index and low cardiac output. 3. Severe elevation of pulmonary capillary wedge pressure. 4. Pulmonary hypertension with some reactive increase in pulmonary vascular resistance and some increased systemic vascular resistance. 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 (HCC) Past Medical History: Diagnosis Date Cancer (HCC) Cervical adenocarcinoma (HCC) 1992 Diabetes mellitus Dyslipidemia Hypertension Obesity JOSHUA (obstructive sleep apnea) 06/18/2015 Past Surgical History: Procedure Laterality Date CATHETERIZATION HEART RIGHT AND LEFT N/A 11/20/2014 Procedure: CATHETERIZATION HEART RIGHT AND LEFT; Surgeon: Kolby Huertas MD; Location: [facility] CCL CHOLECYSTECTOMY 1989 COLONOSCOPY N/A 10/07/2014 Procedure: COLONOSCOPY; Surgeon: Umer Islas MD; Location: [facility] MAIN OR EGD N/A 10/07/2014 Procedure: ENDOSCOPY UPPER GI; Surgeon: Umer Islas MD; Location: [facility] MAIN OR HIGH GASTRIC BYPASS 1989 DC HYSTERECTOMY VAGINAL W/ REPAIR OF ENTEROCELE 1993 UMBIL HERNIA REPAIR NEC 1989 VAGINAL HYSTERECTOMY 1992 No Known Allergies Current Outpatient Medications Medication Sig atorvastatin (LIPITOR) 40 MG Oral Tab TAKE ONE TABLET BY MOUTH EVERY DAY Cyanocobalamin (VITAMIN B 12 PO) Take 1 Tab by mouth DAILY. ELIQUIS 5 MG Oral Tab TAKE ONE TABLET BY MOUTH TWICE A DAY (Patient taking differently: Take 5 mg by mouth TWICE DAILY.) Glucose Blood In Vitro Strip 100 Strips by In Vitro route DAILY. contolled insulin dependent diabetes. Test 1x per day Insulin Glargine (LANTUS SOLOSTAR) 100 UNIT/ML Subcutaneous Solution Pen- injector Inject 80 Units beneath the skin EVERY BEDTIME. Insulin Pen Needle (1ST TIER UNIFINE PENTIPS) 31G X 5 MM Does not apply Misc Inject 1 Device beneath the skin DAILY. metFORMIN HCL 750 MG Oral TABLET SR 24 HR Take 1 Tab by mouth EVERY EVENING. metoprolol succinate (TOPROL XL) 25 MG Oral TABLET SR 24 HR Take 1 Tab by mouth DAILY. Misc. Devices (BARIATRIC ROLLATOR) Does not apply Misc 1 Device by Does not apply route DIRECTED. Needs with wheels, seat and basket Multiple Vitamins-Minerals (MULTIVITAMIN ADULT PO) Take 1 Tab by mouth DAILY. pramipexole (MIRAPEX) 1 MG Oral Tab TAKE 1/2 TABLET BY MOUTH 2-3 HOURS BEFORE BEDTIME. MAY INCREASE TO 1 TABLET AT BEDTIME NEEDED pregabalin (LYRICA) 50 MG Oral Cap TAKE ONE CAPSULE BY MOUTH THREE TIMES A DAY; MAXIMUM DAILYDOSE = 3 spironolactone (ALDACTONE) 25 MG Oral Tab Take 1 Tab by mouth DAILY. torsemide (DEMADEX) 20 MG Oral Tab Take 1 Tab by mouth TWICE DAILY. No current facility-administered medications for this visit. Family History Problem Relation Age of Onset Heart Father hypertension,heart attack Arthritis Mother osteoarthritis Cancer Brother esophageal cancer Social History Socioeconomic History Marital status: Spouse name: Not on file Number of children: Not on file Years of education: Not on file Highest education level: Not on file Occupational History Not on file Social Needs Financial resource strain: Not on file Food insecurity Worry: Not on file Inability: Not on file Transportation needs Medical: Not on file Non-medical: Not on file Tobacco Use Smoking status: Never Smoker Smokeless tobacco: Never Used Substance and Sexual Activity Alcohol use: No Alcohol/week: 2.0 standard drinks Types: 2 Standard drinks or equivalent per week Drug use: No Sexual activity: Not Currently Lifestyle Physical activity Days per week: Not on file Minutes per session: Not on file Stress: Not on file Relationships Social connections Talks on phone: Not on file Gets together: Not on file Attends christian service: Not on file Active member of club or organization: Not on file Attends meetings of clubs or organizations: Not on file Relationship status: Not on file Intimate partner violence Fear of current or ex partner: Not on file Emotionally abused: Not on file Physically abused: Not on file Forced sexual activity: Not on file Other Topics Concern Back Care Not Asked Bike Helmet Not Asked Blood Transfusions Not Asked Caffeine Concern Yes Comment: 1 cup weekly Exercise No Hobby Hazards Not Asked International Travel Not Asked Service Not Asked Occupational Exposure Not Asked Seat Belt Not Asked Self-Exams Not Asked Sleep Concern No Special Diet Yes Comment: low carb and low salt and sodium Stress Concern No Weight Concern Yes Social History Narrative Lives in [facility] Physical Exam: Vitals: 06/12/19 1246 BP: 120/84 Pulse: 76 Weight: 312 lb (141.5 kg) Body mass index is 53.55 kg/m. General: Morbidly obese, alert 79-y.o. female in NAD HEENT: anicteric, MMM, no E/E OP, conj pink Neck: No carotid bruits CV: irregularly irregular, normal s1/s2, + systolic murmur Pulm: CTA bilaterally without wheezes, rhonchi, or rales. No increased work of breathing. Abd: soft, NT, ND, +BS. Ext: Wearing unaboots, 2+ pitting b/l lower extremity edema, no cyanosis, no cords, redness, or warmth, 2+ distal pulses Neuro: no gross focal deficits Skin: no visible lesions Labs: Lab Results Component Value Date NA 142 06/06/2019 K 4.3 06/06/2019 CL 103 06/06/2019 CO2 30 06/06/2019 GLUCOSE 97 06/06/2019 BUN 21 (H) 06/06/2019 CREATININE 0.7 06/06/2019 CALCIUM 9.3 06/06/2019 TP 8.3 (H) 06/06/2019 ALBUMIN 3.9 06/06/2019 AST 36 06/06/2019 ALT 20 06/06/2019 ALK 234 (H) 06/06/2019 TBILI 1.8 (H) 06/06/2019 EGFR >60 06/06/2019 Lab Results Component Value Date NT PRO BNP 866 (H) 06/06/2019 Lab Results Component Value Date CHOL 80 03/29/2019 TRIG 61 03/29/2019 HDL 27 (L) 03/29/2019 LDL 41 03/29/2019 LDLHDLRATIO 1.5 03/29/2019 CHOLHDLRATIO 3.0 03/29/2019 Assessment & Plan: Nicole Kaufman is a 79-y.o. female with ICD-9-CM ICD-10-CM 1. Congestive heart failure, unspecified HF chronicity, unspecified heart failure type (HCC) 428.0 I50.9 2. Mitral valve insufficiency, unspecified etiology 424.0 I34.0 3. Essential hypertension 401.9 I10 4. Dilated cardiomyopathy (HCC) 425.4 I42.0 5. Paroxysmal atrial fibrillation (HCC) 427.31 I48.0 6. Mixed hyperlipidemia 272.2 E78.2 1. Nonischemic Cardiomyopathy with NYHA Class III symptoms: Dyspnea symptoms are stable although shedoesn't do much activity at baseline. I believe that her volume status is worse based on her weightgain, and while her LE edema doesn 't appear significantly changed I think she's putting some fluid in her abdomen (related to her TR as well). Plan was to double her Torsemide to 20mg BID pending results of her recent CMP. She got confused and never doubled her Torsemide, so she has been taking 20mg daily. Will plan to proceed as follows: Most recent LV function: 45% (by echo on 04/10/18). Will plan to check another echocardiogram in about 6 months. Beta-kevin: Cont Toprol XL at current dose. ROSA-inhibitor or ARB: Off lisinopril d/t prior REILLY. OK to stay off since the priority with heris diuretics. Aldosterone Antagonist: Cont spironolactone 25mg daily. Diuretic: I instructed her to increase her Torsemide 20mg daily to BID. She verbalized understanding. I will see her in 1 week, at which time I will reassess her fluid status and will repeat a CMPto check her LFTs. I also again counseled her on a working on a low sodium diet. Devices: N/A; LVEF > 35%. Other: Unfortunately not wearing CPAP anymore b/c her usage was inadequate for insurance to cover. I again recommended that she speak with her dentist about any possible dental device options which may help her JOSHUA. 2. Pulmonary HTN: Most likely a combination of Group 2 and Group 3 pulmonary HTN. She had improvement in her pulm pressures in past years with diuresis, but her most recent echo in March 2018 showed worsening TR and worsening estimated PASP related to her lower diuretic doses at the time. We've since added back spironolactone. Checking another echo in about 6 months to monitor her pulm pressures and TR. Labs and diuretic adjustments as noted above. 3. Permanent Atrial Fibrillation: The etiology of atrial fibrillation in this patient is most likelyrelated to obesity, HTN, and JOSHUA. The heart-rate is reasonably well controlled at rest on the current medical regimen. This patient 's [id number] score is 5. I recommend the following treatment strategy and medical regimen for this patient: Stroke prevention: Based on the patient's [id number] risk profile, I recommend continuing Eliquis. Rate control: Cont Toprol XL 25mg daily. Rhythm control: N/A; in chronic AF. Thank you for allowing me to participate in the care of Nicole Kaufman. We will plan on f/u in our office in 1 week or sooner prn. If you have any questions or concerns please feel free to call our office. [place]ER[place] Owens, 06/12/2019, 13:26 documented in this encounter Plan of Treatment Date Type Specialty Care Team Description 06/18/2019 Office Visit Cardiology Rajinder Breaux PA [address] [place] [id number] 06/18/2019 Lab Internal Medicine 07/10/2019 Lab Internal Medicine 07/17/2019 Office Visit Internal Medicine Damaso Sylvester MD [address] [place] [id number] 11/26/2019 Orders Only Cardiology 12/03/2019 Office Visit Cardiology Dylan Michel MD [facility] [place] [address] Health Maintenance Due Date Last Done Comments MEDICARE ANNUAL WELLNESS 1940 VISIT ZOSTER IMMUNIZATION SERIES 03/11/2009 01/14/2009 (2 of 3) HEMOGLOBIN A1C 06/29/2019 03/29/2019, 12/21/2018, 05/18/2018, Additional history exists Diabetic Eye Exam 09/13/2019 09/12/2018, 09/12/2018, 03/18/2018, Additional history exists OSTEOPOROSIS SCREENING 12/13/2019 12/12/2009 DEPRESSION SCREENING 01/19/2020 01/18/2019 URINE MICROALBUMIN 03/29/2020 03/29/2019, 05/18/2018, 09/30/2014 FOOT EXAM 04/03/2020 04/03/2019, 04/03/2019, 12/20/2017, Additional history exists FALL RISK ASSESSMENT 04/05/2020 04/05/2019, 04/05/2019 DTaP/Tdap/Td Vaccines (2 - 11/21/2022 11/21/2012 Tdap) PNEUMOCOCCAL 65+YRS Completed 06/03/2014, 11/21/2012 INFLUENZA VACCINE Completed 03/29/2019, 01/31/2018, 03/03/2017, Additional history exists HEPATITIS A IMMUNIZATION Aged Out No longer eligible SERIES based on patient's age to complete this topic HPV IMMUNIZATION SERIES Aged Out No longer eligible based on patient's age to complete this topic MENINGOCOCCAL VACCINE IMM Aged Out No longer eligible based on patient's age to complete this topic documented as of this encounter Goals Goal Patient Goal Associated Recent Patient-Stated? Author Type Problems Progress Blood Pressure Blood Pressure 120/84 No Keaton, < 140/90 (06/12/2019 SADE Alfonso 12:46 PM EST) Note: This is an individualized treatment (blood pressure) goal for Nicole Kaufman: Displayed above (on the left) is your goal for blood pressure control. Your most recent blood pressure is also shown above, on the right. You should try to achieve blood pressures that are lower than your goal listed above (on the left). Weight increase vs. 18 mo CHF 56 (06/12/2019 12:46 PM EST) No Naty Pugh FNP min (lbs) < 5 Note: This is an individualized treatment (congestive heart failure, CHF) goal for Nicole Kaufman: Displayed above (on the right) is how many pounds you are in excess of your lowest weight over the past 18 months. Note that lower numbers are better. Excessive weight gain often indicates fluid reten tion and worsening heart failure. You should contact your doctor immediately if the above number is too high (above your goal, the number on the left). Glycohemoglobin A1c < 7.0 Diabetes 9.0 (03/29/2019 9:18 No Naty Pugh FNP AM EST) Note: This is an individualized treatment (diabetes control, HgbA1C) goal for Nicole Kaufman: Displayed above is your progress towards your HgbA1C goal. Your goal is shown above (on the left); your most recent HgbA1C is shown on the right. Note that lower numbers are better. Keep immunizations current Lifestyle Naty Mckinley FNP Note: This is an individualized lifestyle goal for Nicole Kaufman: Please be sure to keep up-to-date on recommended immunizations. For example, this would include a yearly influenza vaccine. Immunization status can be seen by looking at the Health Maintenance sections of your [facility], Plan of Care, and any After Visit Summaries. Consume a [id number] diet Lifestyle No Naty Pugh FNP Note: This is an individualized lifestyle goal for Nicole Kaufman: Please do not add additional salt to your food. Additional salt may lead to fluid retention and worsen your congestive heart failure. Take all prescribed medications as Self-management No Naty Pugh FNP directed Note: This is an individualized self-management goal for Nicole Kaufman: Please take all prescribed medications as directed. 1. Do not skip doses. If you cannot afford your medications, talk with your doctor. 2. Use a pill reminder system such as a pill box if needed. Your pharmacist can help you with this. 3. Contact your Pharmacy 5 days before your medication runs out. If you cannot take your medications for any reasons, talk with your doctor. 4. Please bring all of your medication bottles and inhalers (or a list of all your medications/inhalers) with you to every visit. Potential barriers to meeting all of your care plan goals will continue to be addressed on an ongoing basis. Check your weight daily Self-management No Naty Pugh FNP Note: This is an individualized self-management goal for Nicole Kaufman: Please check your weight daily. Refer to the accompanying CHF treatment goal and call your doctor immediately for further instructions on how to respond to unexpected weight gain. documented as of this encounter Results Not on filedocumented in this encounter Visit Diagnoses Diagnosis Congestive heart failure, unspecified HF chronicity, unspecified heart failure type (HCC) Mitral valve insufficiency, unspecified etiology Essential hypertension Unspecified essential hypertension Dilated cardiomyopathy (HCC) Other primary cardiomyopathies Paroxysmal atrial fibrillation (HCC) Atrial fibrillation Mixed hyperlipidemia documented in this encounter Insurance Payer Benefit Plan / Subscriber ID Effective Dates Phone Address Type Group MEDICARE MEDICARE PART A & B xxxxxxxxxxx 2006-Present Medicare UHC EMPIRE [facility]-EMPIRE PLAN xxxxxxxxx 2016-Present [place] (Work) documented as of this encounter
--- OUTSIDE RECORDS SUMMARY | 2019-06-27 14:07 | XMS REPORT | Summary of Care ---
:[address] [facility] Address [address] [place] [address] Care Team Providers Name Role Phone HiginioKostabritney Freitas Primary Care Provider Philippe Jenkins MD Primary Hog Man/Subassemblies Wirer Arely Swan RN [facility] Process Trainer Unavailable Reason for Referral Refer to Department Only (Routine) Status Reason Specialty Diagnoses / Referred By Referred To Procedures Contact Contact Pending Review ENDOCRINOLOGY Diagnoses Controlled type 2 diabetes mellitus with hypoglycemia, with long-term current use of insulin (HCC) Kirk Woodson Reilly, T, PA MD [address] [facility] [address] Phone: [phone] Phone: Refer to Department Only (Routine) Status Reason Specialty Diagnoses / Referred By Referred To Procedures Contact Contact Authorized ENDOCRINOLOGY / Diagnoses Controlled type 2 diabetes mellitus with hypoglycemia, with long-term current use of insulin ([facility] Kirk Woodson [facility] T, PA Endocrinology [address] [place], [place] [address] [place] [address] Phone: [phone] Phone: Scheduling Instructions Referrals to [facility]- Use Dept: [facility] Reason for Visit Reason Comments Follow Up Hospital f/u d/c 06/19/2019 for hypoglicemia, surgery on Tuesday to have a bunion removed and removed little toe R. Encounter Details Date Type Department Care Team Description 06/22/2019 Office Visit [facility] Kirk Woodson, Controlled type 2 Medicine PA diabetes mellitus with [address] [facility] [facility] [address] hypoglycemia, with [place], [place] [id number] [place] [id number] long-term current use [phone] of insulin (HCC) (Primary Dx) Allergies No Known Allergiesdocumented as of this encounter (statuses as of 06/22/2019) Medications Medication Sig Dispensed Refills Start Date End Date Status Glucose Blood In Vitro 100 Strips by In 100 Strip 3 01/11/2017 Active StripIndications: Vitro route Diabetes mellitus DAILY. contolled without complication insulin dependent (HCC) diabetes. Test 1x per day Insulin Pen Needle (1ST Inject 1 Device 100 Each 0 12/29/2017 Active TIER UNIFINE PENTIPS) beneath the skin 31G X 5 MM Does not DAILY. apply Misc spironolactone Take 1 Tab by 90 Tab 3 04/19/2018 Active (ALDACTONE) 25 MG Oral mouth DAILY. TabIndications: Pulmonary hypertension (HCC) Misc. Devices 1 Device by Does 1 Each 0 06/27/2018 Active (BARIATRIC ROLLATOR) not apply route Does not apply DIRECTED. MiscIndications: Needs with Reduced mobility, wheels, seat and Morbid obesity (HCC) basket pramipexole (MIRAPEX) 1 TAKE 1/2 TABLET 90 Tab 3 10/02/2018 Active MG Oral Tab BY MOUTH 2-3 HOURS BEFORE BEDTIME. MAY INCREASE TO 1 TABLET AT BEDTIME NEEDED metoprolol succinate Take 1 Tab by 90 Tab 3 12/04/2018 Active (TOPROL XL) 25 MG Oral mouth DAILY. TABLET SR 24 HRIndications: Permanent atrial fibrillation Multiple Take 1 Tab by 0 Active Vitamins-Minerals mouth DAILY. (MULTIVITAMIN ADULT PO) Cyanocobalamin (VITAMIN Take 1 Tab by 0 Active B 12 PO) mouth DAILY. atorvastatin (LIPITOR) TAKE ONE TABLET 90 Tab 5 04/02/2019 Active 40 MG Oral BY MOUTH EVERY TabIndications: DAY Essential hypertension Insulin Glargine Inject 80 Units 15 mL 4 04/05/2019 Active (LANTUS SOLOSTAR) 100 beneath the skin UNIT/ML Subcutaneous EVERY BEDTIME. Solution Pen-injector Additional information Patient taking differently: 40 Units Subcutaneous QHS, Reported on 06/22/2019 2:07 PM metFORMIN HCL 750 MG Take 1 Tab by mouth 90 Tab 5 04/05/2019 04/04/2020 Active Oral TABLET SR 24 HR EVERY EVENING. pregabalin (LYRICA) 50 TAKE ONE CAPSULE BY 90 Cap 5 05/21/2019 Active MG Oral Cap MOUTH THREE TIMES A DAY; MAXIMUM DAILY DOSE = 3 ELIQUIS 5 MG Oral Tab TAKE ONE TABLET BY 60 Tab 11 05/21/2019 Active MOUTH TWICE A DAY Additional information Patient taking differently: 5 mg Oral BID, (No instructions reported), Reported on 06/06/2019 10:54 AM torsemide (DEMADEX) 20 MG Take 1 Tab by mouth TWICE 60 Tab 11 06/07/2019 Active Oral Tab DAILY. documented as of this encounter (statuses as of 06/22/2019) Active Problems Problem Noted Date Uncontrolled type [...] Anticoagulants 05/31/2007 Overview: [facility] Patient on Eliquis. Managed by [facility] Referring Provider: [facility] Indication: Afib Target Range: 2.0-3.0 Duration: :pmg Term CHADS2 score of 2 for HTN DM Update referral 09/2010, 01/2013, 05/31/14 Updated order 02/06/13, 06/30/14 Uterine cancer 05/01/2007 Overview: S/p RAYMOND/BSO 1990 Restless leg syndrome 05/01/2007 Dilated cardiomyopathy 05/01/2007 Morbid obesity 11/14/2006 Overview: BMI 51 Paroxysmal atrial fibrillation 11/14/2006 Mixed hyperlipidemia 11/14/2006 documented as of this encounter (statuses as of 06/22/2019) Resolved Problems Problem Noted Date Resolved Date Diabetic ulcer of toe of left foot associated with type 2 01/18/20192018 diabetes mellitus Osteomyelitis of toe 07/28/2018 04/05/2019 Overview: S/p surgery Dr Ashby podiatry [facility] summer 2018 REILLY (acute kidney injury) 07/28/2018 01/18/2019 Type 2 diabetes, controlled, with peripheral neuropathy 07/28/2018 01/18/2019 Sepsis 07/28/2018 01/18/2019 Encounter for long-term (current) use of other medications 02/02/20132018 Encounter for therapeutic drug monitoring 01/15/2010 07/08/2010 Encounter for therapeutic drug monitoring 12/04/2009 12/09/2009 Visit for screening mammogram 09/16/2009 05/18/2018 Overview: Last done 09/15/2009@Kera Fullere [email or web address]. Replaced inactive diagnosis Diabetes mellitus, type II 11/14/2006 04/05/2019 Overview: HEMOGLOBIN A1C 6.3% 08/30 Cholecystitis, chronic 05/23/1989 01/18/2019 documented as of this encounter (statuses as of 06/22/2019) Immunizations Name Administration Dates Next Due Influenza [...] Sign Reading Time Taken Comments Blood Pressure 106/66 06/22/2019 1:59 PM EST Pulse 87 06/22/2019 1:59 PM EST Temperature 35.8 06/22/2019 1:59 PM EST C (96.4 F) Respiratory Rate - - Oxygen Saturation 94% 06/22/2019 1:59 PM EST Inhaled Oxygen Concentration - - Weight - - Height 162.6 cm (5' 4") 06/22/2019 1:59 PM EST Body Mass Index - - documented in this encounter Patient Instructions Patient InstructionsKirk Woodson PA - 06/22/2019 2:00 PM ESTStop taking the Metformin. Schedule an appointment with our Manager Of Operations, Josee. Schedule an establish appointment with the Dr. Molina at [facility]. Follow up with Dr. Sylvester 1 month. If you experience dizziness, excessive weakness and fatigue, return to the emergency room. Call with any questions or concerns. documented in this encounter Progress Notes Kirk Woodson PA - 06/22/2019 2:00 PM EST PATIENT: Nicole Kaufman : 1940 DATE OF SERVICE: 06/22/2019 CC: Chief Complaint Patient presents with Follow Up Hospital f/u d/c 06/19/2019 for hypoglicemia, surgery on Tuesday to have a bunion removed and removed little toe R. SUBJECTIVE: Nicole Kaufman is a 79-y.o. female patient of Damaso Sylvester Review of the hospitalization: I am seeing for transition of care following hospitalization. The date of discharge was 06/18/2019. The discharge diagnosis was Hypoglycemia with Hypothermia. I reviewed the discharge summary, discharge instructions, and pertinent additional documentation obtained during hospitalization. I reconciled the medications. I also reviewed the Transition of Care documentation done by the staff. The tests that were not available at the time of discharge were reviewed. Today Nicole states that she is feeling much improved and has no complaints after the bunion surgery. As for the hypoglycemia, she is currently taking her metformin and Lantus ( Lantus in the morning hasbeen decreased to 40 units from 80, metformin in the evening) She has been advised to discontinue her metformin at the hospital stay , but she has not done so. She states that her blood sugars have all been below 165, but her morning sugars have floated into the 50s each morning and is symptomatic as aresult. She complains of anxiety and fatigue, which improves after she eats. She denies recent LOC or other complications as a result of the decreased blood sugar. She is otherwise feeling well and has no complaints pertaining to her diabetes. Coordination of care. -I am satisfied that appropriate referrals are in place to deal with the problems identified during hospitalization, and that the patient has adequate community resources and support in place. -Additional testing related to hospitalization was requested today: yes. See orders. 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 Patient on Eliquis. Managed by [facility] Referring Provider: Katherine Indication: Afib Target Range: 2.0-3.0 Duration: :pmg Term CHADS2 score of 2 for HTN DM Update referral 09/2010, 01/2013, 05/31/14 Updated order 02/06/13, 06/30/14 Uterine cancer (HCC) 05/01/2007 S/p RAYMOND/BSO 1989 Restless leg syndrome 05/01/2007 Dilated cardiomyopathy (HCC) 05/01/2007 Morbid obesity (HCC) 11/14/2006 BMI 51 Paroxysmal atrial fibrillation (HCC) 11/14/2006 Mixed hyperlipidemia 11/14/2006 The past medical history includes: Past Medical History: Diagnosis Date Cancer (HCC) Cervical adenocarcinoma (HCC) 1992 Diabetes mellitus Dyslipidemia Hypertension Obesity JOSHUA (obstructive sleep apnea) 06/18/2015 The current medications are: Current Outpatient Medications Medication Sig atorvastatin (LIPITOR) [...] 80 Units beneath the skin EVERY BEDTIME. (Patient taking differently: Inject 40 Units beneath the skin EVERY BEDTIME.) Insulin Pen Needle (1ST TIER UNIFINE PENTIPS) [...] No current facility-administered medications for this visit. Review of Systems Review of Systems Constitutional: Negative for chills, fever, malaise/fatigue and weight loss. HENT: Negative for congestion, ear pain, hearing loss, sore throat and tinnitus. Eyes: Negative for blurred vision, double vision and photophobia. Respiratory: Negative for cough, sputum production and shortness of breath. Cardiovascular: Negative for chest pain, palpitations, orthopnea and leg swelling. Gastrointestinal: Negative for abdominal pain, blood in stool, diarrhea and heartburn. Genitourinary: Negative for dysuria, flank pain and hematuria. Musculoskeletal: Negative for falls, joint pain and myalgias. Skin: Negative for itching and rash. Neurological: Negative for dizziness, sensory change, speech change, loss of consciousness and weakness. Endo/Heme/Allergies: Negative for environmental allergies and polydipsia. Does not bruise/bleed easily. Psychiatric/Behavioral: Negative for depression, substance abuse and suicidal ideas. The patient is not nervous/anxious (.phy). I have fully reviewed the past medical, surgical, social and family history and updated the Histories section of [facility] OBJECTIVE: BP 106/66 (BP Location: Left arm, Patient Position: Sitting) | Pulse 87 | Temp 96.4 F (35.8 C) (Tympanic) | Ht 5' 4" (1.626 m) | SpO2 94% | BMI 53.55 kg/m Body mass index is 53.55 kg/m. Physical Exam Vitals signs and nursing note reviewed. Constitutional: General: She is not in acute distress. Appearance: She is not ill-appearing or diaphoretic. HENT: Head: Normocephalic and atraumatic. Right Ear: Tympanic membrane, ear canal and external ear normal. Left Ear: Tympanic membrane, ear canal and external ear normal. Nose: No congestion or rhinorrhea. Mouth/Throat: Mouth: Mucous membranes are moist. Pharynx: No oropharyngeal exudate or posterior oropharyngeal erythema. Eyes: General: Right eye: No discharge. Left eye: No discharge. Extraocular Movements: Extraocular movements intact. Conjunctiva/sclera: Conjunctivae normal. Pupils: Pupils are equal, round, and reactive to light. Neck: Musculoskeletal: Normal range of motion and neck supple. No muscular tenderness. Cardiovascular: Rate and Rhythm: Normal rate and regular rhythm. Pulses: Normal pulses. Heart sounds: No murmur. No friction rub. No gallop. Pulmonary: Effort: No respiratory distress. Breath sounds: No wheezing, rhonchi or rales. Abdominal: General: Abdomen is flat. Bowel sounds are normal. Palpations: Abdomen is soft. Tenderness: There is no abdominal tenderness. There is no right CVA tenderness, left CVA tenderness, guarding or rebound. Musculoskeletal: Normal range of motion. General: No swelling or tenderness. Lymphadenopathy: Cervical: No cervical adenopathy. Skin: General: Skin is warm and dry. Capillary Refill: Capillary refill takes less than 2 seconds. Findings: No lesion or rash. Neurological: General: No focal deficit present. Mental Status: She is alert and oriented to person, place, and time. Cranial Nerves: No cranial nerve deficit. Motor: No weakness. Psychiatric: Mood and Affect: Mood normal. Behavior: Behavior normal. Thought Content: Thought content normal. ASSESSMENT and Plan ICD-9-CM ICD-10-CM 1. Controlled type 2 diabetes mellitus with hypoglycemia, with long-term current use of insulin (HCC) 250.80 E11.649 COMPREHENSIVE METABOLIC PANEL 251.2 Z79.4 GLYCOHEMOGLOBIN A1C V58.67 MICROALBUMIN, RANDOM URINE W/ CREATININE CBC WITH DIFFERENTIAL 2. Uncontrolled type 2 diabetes mellitus with hypoglycemia without coma (HCC) 250.82 E11.649 COMPREHENSIVE METABOLIC PANEL 251.2 GLYCOHEMOGLOBIN A1C MICROALBUMIN, RANDOM URINE W/ CREATININE CBC WITH DIFFERENTIAL REFER TO DIABETES/NUTRITION REFER TO ENDOCRINOLOGY I confirm the patient's understanding of the diagnosis and plan of care. Specific education that was provided today: Patient Instructions Stop taking the Metformin. Schedule an appointment with our Manager Of Operations, Josee. Schedule an establish appointment with the Dr. Molina at [facility]. Follow up with Dr. Sylvester 1 month. If you experience dizziness, excessive weakness and fatigue, return to the emergency room. Call with any questions or concerns. Morning hypoglycemia may be a result of her taking her metformin in the evening. It is important that she keep a routine log book, which we discussed in detail. She expressed agreement to this. Author: SHERWIN Whyte 06/22/2019 17:02 documented in this encounter Plan of Treatment Date Type Specialty Care Team Description 07/10/2019 Lab Internal Medicine 07/17/2019 Office Visit Internal Medicine Damaso Sylvester MD [address] [place] [id number] 11/26/2019 Orders Only Cardiology 12/03/2019 Office Visit Cardiology Dylan Michel MD [facility] [place] [address] Name Type Priority Associated Diagnoses Order Schedule COMPREHENSIVE METABOLIC Lab Routine Controlled type 2 Expected: 06/22/2019 PANEL diabetes mellitus with (Approximate), hypoglycemia, with Expires: 06/22/2020 long-term current use of insulin (HCC) GLYCOHEMOGLOBIN A1C Lab Routine Controlled type 2 Expected: 06/22/2019 diabetes mellitus with (Approximate), hypoglycemia, with Expires: 06/22/2020 long-term current use of insulin (HCC) MICROALBUMIN, RANDOM URINE Lab Routine Controlled type 2 Expected: 2019 W/ CREATININE diabetes mellitus with (Approximate), hypoglycemia, with Expires: 12/19/2019 long-term current use of insulin (HCC) CBC WITH DIFFERENTIAL Lab Routine Controlled type 2 Expected: 06/22/2019 diabetes mellitus with (Approximate), hypoglycemia, with Expires: 06/22/2020 long-term current use of insulin (HCC) Name Type Priority Associated Diagnoses Order Schedule REFER TO Referral Routine Controlled type 2 Expected: DIABETES/NUTRITION diabetes mellitus with 06/22/2019, Expires: hypoglycemia, with 06/22/2020 long-term current use of insulin (HCC) REFER TO ENDOCRINOLOGY Referral Routine Controlled type 2 Expected: diabetes mellitus with 06/22/2019, Expires: hypoglycemia, with 06/22/2020 long-term current use of insulin (HCC) Health Maintenance Due Date Last Done Comments MEDICARE ANNUAL WELLNESS 1940 VISIT ZOSTER IMMUNIZATION SERIES 03/11/2009 01/14/2009 (2 of 3) Diabetic Eye Exam 09/13/2019 09/12/2018, 09/12/2018, 03/18/2018, Additional history exists HEMOGLOBIN A1C 09/17/2019 06/18/2019, 03/29/2019, 12/21/2018, Additional history exists OSTEOPOROSIS SCREENING 12/13/2019 12/12/2009 [...] Type Problems Progress Blood Pressure Blood Pressure 106/66 No Keaton, < 140/90 (06/22/2019 SADE Alfonso 1:59 PM EST) Note: This is an individualized [...] mo CHF 56 (06/12/2019 12:46 PM EST) Naty Mckinley FNP min (lbs) < 5 Note: This [...] A1c < 7.0 Diabetes 9.0 (03/29/2019 9:18 Naty Mckinley FNP AM EST) Note: This is an [...] and any After Visit Summaries. Consume a [id number] diet Lifestyle No Naty Pugh FNP Note: [...] filedocumented in this encounter Visit Diagnoses Diagnosis Controlled type 2 diabetes mellitus with hypoglycemia, with long-term current use of insulin (HCC) documented in this encounter Insurance Payer Benefit Plan / Subscriber ID Effective Dates Phone Address Type Group MEDICARE MEDICARE PART A & B xxxxxxxxxxx 2006-Present Medicare UHC EMPIRE [employer]-EMPIRE PLAN xxxxxxxxx 2016-Present [place] (Work) documented as of this encounter
--- OUTSIDE RECORDS SUMMARY | 2019-06-27 14:07 | XMS REPORT | Summary of Care ---
:1940 Author Organization [facility] Address [address] [facility] [place] [address] Care Team Providers Name Role Phone HiginioKostabritney Freitas Primary Care Provider Philippe Jenkins MD Primary Manager Acute/Ammonia Operator Arely Swan RN [facility] Leave Coordinator Unavailable Reason for Referral Diagnostic Testing (Routine) Status Reason Specialty Diagnoses / Procedures Referred By Referred To Contact Contact Pending Review Diagnoses Permanent atrial fibrillation Dilated cardiomyopathy (HCC) Pulmonary hypertension (HCC) Marilu, Procedures ECHOCARDIOGRAM TTE MD Dylan [address] [place] [address] Reason for Visit Reason Comments Follow Up Pt. in for a follow up on Permanent Atrial Fibrillation. Pt. reports up coming Bunion Surgery on 06/20/[address] Rm in [place]. Encounter Details Date Type Department Care Team Description 06/06/2019 Office Visit Julius Michel, Permanent atrial fibrillation (Primary Dx); Cardiology MD Dylan Dilated cardiomyopathy (HCC); [address] [id number] [facility] Pulmonary hypertension (HCC); [place], [place] [id number] [place] [address] Essential hypertension [phone] Allergies No Known Allergiesdocumented as of this encounter (statuses as of 06/06/2019) Medications Medication Sig Dispensed Refills Start Date [...] Oral mouth DAILY. TabIndications: Pulmonary hypertension (HCC) torsemide (DEMADEX) 20 Take 1 Tab by 30 Tab 11 05/18/2018 Active MG Oral Tab mouth DAILY. Misc. Devices 1 Device by Does 1 [...] instructions reported), Reported on 06/06/2019 10:54 AM documented as of this encounter (statuses as of 06/06/2019) Active Problems Problem Noted Date Uncontrolled type [...] Anticoagulants 05/31/2007 Overview: [place] [facility] [place] Eliquis. Managed by [facility] Referring Provider: Katherine Indication: Afib Target Range: 2.0-3.0 Duration: :pmg Term CHADS2 score of 2 for HTN DM Update referral 09/2010, 01/2013, 05/31/14 Updated order 02/06/13, 06/30/14 Uterine cancer 05/01/2007 Overview: S/p RAYMOND/BSO 1990 Restless leg syndrome 05/01/2007 Dilated cardiomyopathy 05/01/2007 Morbid obesity 11/14/2006 Overview: BMI 51 Paroxysmal atrial fibrillation 11/14/2006 Mixed hyperlipidemia 11/14/2006 documented as of this encounter (statuses as of 06/06/2019) Resolved Problems Problem Noted Date Resolved Date Diabetic ulcer of toe of left foot associated with type 2 01/18/20192018 diabetes mellitus Osteomyelitis of toe 07/28/2018 04/05/2019 Overview: S/p surgery Dr Ashby podiatry [facility] summer 2018 REILLY (acute kidney injury) 07/28/2018 01/18/2019 Type 2 diabetes, controlled, with peripheral neuropathy 07/28/2018 01/18/2019 Sepsis 07/28/2018 01/18/2019 Encounter for long-term (current) use of other medications 02/02/20132018 Encounter for therapeutic drug monitoring 01/15/2010 07/08/2010 Encounter for therapeutic drug monitoring 12/04/2009 12/09/2009 Visit for screening mammogram 09/16/2009 05/18/2018 Overview: Last done 09/15/2009@[facility] [employer]. Replaced inactive diagnosis Diabetes mellitus, type II 11/14/2006 04/05/2019 Overview: HEMOGLOBIN A1C 6.3% 08/30 Cholecystitis, chronic 05/23/1989 01/18/2019 documented as of this encounter (statuses as of 06/06/2019) Immunizations Name Administration Dates Next Due Influenza [...] Sign Reading Time Taken Comments Blood Pressure 128/88 06/06/2019 10:44 AM EST Pulse 86 06/06/2019 10:44 AM EST Temperature - - Respiratory Rate - - Oxygen Saturation 94% 06/06/2019 10:44 AM EST Inhaled Oxygen Concentration - - Weight 141.1 kg (311 lb) 06/06/2019 10:44 AM EST Height 162.6 cm (5' 4") 06/06/2019 10:44 AM EST Body Mass Index 53.38 06/06/2019 10:44 AM EST documented in this encounter Patient Instructions Patient InstructionsMcDylan Meyers MD - 06/06/2019 11:00 AM EST No medication changes today. Get your bloodwork checked today. Depending on the results of your bloodwork, I may increase your dose of torsemide to help reduce your abdominal swelling and help your breathing more. Work on a LOW SODIUM diet and small portions for weight loss. Schedule an echocardiogram in about 6 months and follow up with me shortly after that. documented in this encounter Progress Notes Dylan Michel MD - 06/06/2019 11:00 AM EST [facility] Patient: Nicole Kaufman Date of : 1940 Date of Service: 06/06/2019 REFERRING PRACTITIONER: Damaso Sylvester PRIMARY CARE PROVIDER: Damaso Sylvester Chief Complaint: Chief Complaint Patient presents with Follow Up Pt. in for a follow up on Permanent Atrial Fibrillation. Pt. reports up coming Bunion Surgery on 06/20/[address] Rm in [place]. History of Present Illness: We had the pleasure of seeing Nicole Kaufman today at the [facility] Cardiology Office. She is a 79-y.o. female with dilated nonischemic cardiomyopathy, permanent atrial fibrillation, JOSHUA not on CPAP, HTN , DM, pulmonary HTN, and morbid obesity. Ms. Kaufman returns to cardiology clinic today for routine f/u. Since her last visit with me she reports that she's undergoing bunionectomy at the end of May in [place]. She's gained a lot of weightsince the fall by our scales ( almost 50 pounds). She hasn't been doing anything differently in terms of her diet and she denies an increase in sodium intake. Notes that her abdomen feels swollen and "tight." No abdominal pain, nausea, or vomiting. Hasn't noted much difference in her breathing but hasn't been doing much activity. Does have some SOB when she first lies down in bed but otherwise noorthopnea and no PND. Wearing Unaboots on her LEs, and hasn't noted more LE edema. Patient Active Problem List Diagnosis Morbid obesity [...] AND LEFT; Surgeon: Kolby Huertas MD; Location: [facility] CCL CHOLECYSTECTOMY 1989 COLONOSCOPY N/A 10/07/2014 Procedure: COLONOSCOPY; Surgeon: Umer Islas MD; Location: [facility] MAIN OR EGD N/A 10/07/2014 Procedure: ENDOSCOPY UPPER GI; Surgeon: Umer Islas MD; Location: [facility] MAIN OR HIGH GASTRIC BYPASS 1989 IA HYSTERECTOMY VAGINAL W/ REPAIR OF ENTEROCELE 1993 UMBIL HERNIA REPAIR NEC 1989 VAGINAL HYSTERECTOMY 1992 No Known Allergies Current Outpatient Medications Medication atorvastatin (LIPITOR) 40 MG Oral Tab Cyanocobalamin (VITAMIN B 12 PO) ELIQUIS 5 MG Oral Tab Glucose Blood In Vitro Strip Insulin Glargine (LANTUS SOLOSTAR) 100 UNIT/ML Subcutaneous Solution Pen- injector Insulin Pen Needle (1ST TIER UNIFINE PENTIPS) 31G X 5 MM Does not apply Misc metFORMIN HCL 750 MG Oral TABLET SR 24 HR metoprolol succinate (TOPROL XL) 25 MG Oral TABLET SR 24 HR Misc. Devices (BARIATRIC ROLLATOR) Does not apply Misc Multiple Vitamins-Minerals (MULTIVITAMIN ADULT PO) pramipexole (MIRAPEX) 1 MG Oral Tab pregabalin (LYRICA) 50 MG Oral Cap spironolactone (ALDACTONE) 25 MG Oral Tab torsemide (DEMADEX) 20 MG Oral Tab Family History Problem Relation Age of Onset [...] file Gets together: Not on file Attends sabianism service: Not on file Active member of [...] Concern Yes Social History Narrative Lives in [facility] area Review of Systems - Negative except for some vertigo resulting in a couple falls and as noted in HPI. Physical Exam: Vitals: 06/06/19 1044 BP: 128/88 BP Location: Left arm Patient Position: Sitting Pulse: 86 SpO2: 94% Weight: 311 lb (141.1 kg) Height: 5' 4" (1.626 m) Body mass index is 53.38 kg/m. General: Morbidly obese, alert 79-y.o. female in NAD HEENT: anicteric, MMM, no E/E OP, conj pink Neck: JVP approx 10-12 cm above RA with slightly prominent V-wave, no carotid bruits or LAD CV: Irreg irreg, normal s1/s2, 1-2/6 holosystolic murmur at LSB similar to prior. Pulm: CTA bilaterally without wheezes, rhonchi, or rales. Abd: soft, obese, ND, +BS. Ext: 2+ pitting bilateral lower extremity edema underneath her wraps; 1-2+ distal pulses. Neuro: no gross focal deficits Skin: Chronic venous stasis changes. Labs: Lab Results Component Value Date NA 141 03/29/2019 K 4.2 03/29/2019 CL 102 03/29/2019 CO2 29 03/29/2019 GLUCOSE 144 (H) 03/29/2019 BUN 18 (H) 03/29/2019 CREATININE 0.8 03/29/2019 CALCIUM 9.4 03/29/2019 TP 8.0 03/29/2019 ALBUMIN 3.9 03/29/2019 AST 26 03/29/2019 ALT 15 03/29/2019 ALK 126 03/29/2019 TBILI 0.9 03/29/2019 Lab Results Component Value Date NT PRO BNP 963 (H) 12/04/2018 Lab Results Component Value Date CHOL 80 03/29/2019 TRIG 61 03/29/2019 HDL 27 (L) 03/29/2019 LDL 41 03/29/2019 LDLHDLRATIO 1.5 03/29/2019 CHOLHDLRATIO 3.0 03/29/2019 Cardiac Studies: TTE 04/10/18: FINAL IMPRESSION: Patient [...] 524 pauses greater than 2 seconds were noted, although the vast majority of these occurred [...] resistance and some increased systemic vascular resistance. Assessment & Plan: Nicole Kaufman is a 79-y.o. female with dilated nonischemic cardiomyopathy, permanent atrial fibrillation, JOSHUA not on CPAP, HTN, DM, pulmonary HTN, and morbid obesity. ICD-9-CM ICD-10-CM 1. Permanent atrial fibrillation 427.31 I48.21 ECHOCARDIOGRAM TTE 2. Dilated cardiomyopathy (HCC) 425.4 I42.0 ECHOCARDIOGRAM TTE NT PROBNP COMPREHENSIVE METABOLIC PANEL 3. Pulmonary hypertension (HCC) 416.8 I27.20 ECHOCARDIOGRAM TTE 4. Essential hypertension 401.9 I10 1. Nonischemic Cardiomyopathy with NYHA Class III symptoms: Dyspnea symptoms are stable although shedoesn't do much activity at baseline. I believe that her volume status is worse based on her weightgain, and while her LE edema doesn 't appear significantly changed I think she's putting some fluid in her abdomen (related to her TR as well). Will plan to proceed as follows: Most recent LV function: 45% (by echo on 04/10/18). Will plan to check another echocardiogram in about 6 months. Beta-kevin: Cont Toprol XL at current dose. ROSA-inhibitor or ARB: Off lisinopril d/t prior REILLY. OK to stay off since the priority with heris diuretics. Aldosterone Antagonist: Cont spironolactone 25mg daily. I'm checking another CMP and NT-proBNPtoday. Diuretic: Cont torsemide 20mg daily for now. If her labs look stable I'm going to have her double the torsemide to 20mg BID. She had been instructed to push fluids prior to her upcoming bunion surgery and I told her to stop doing that as I believe it's contributing to her volume overload. I also again counseled her on a [...] at the time. We've since added back spironolactone but she remains on a lower dose of torsemide (20mg daily) than she hadpreviously been doing well on (20mg BID). Checking another echo in about 6 months to monitor her pulm pressures and TR. Labs and diuretic adjustments as noted above. 3. Permanent Atrial Fibrillation: The etiology of atrial fibrillation in this patient is most likelyrelated to obesity, HTN, and JOSHUA. The heart-rate is reasonably well controlled at rest on the current medical regimen. This patient 's [id number] score is 5. I recommend the following treatment strategy and medical regimen for this patient: Stroke prevention: Based on the patient's [id number] risk profile, I recommend continuing Eliquis. Rate control: Cont Toprol XL 25mg daily. Rhythm control: N/A; in chronic AF. 4. Preop Risk: OK to proceed to her planned bunionectomy surgery at an acceptable cardiac risk. IVFs should be avoided perioperatively if possible, and hopefully we'll be able to get some volume off prior to the surgery. OK to hold the Eliquis for 48 hours prior to surgery if needed. Thank you for allowing me to participate in the care of Nicole Kaufman. We will plan on f/u in our office in 6 months or sooner prn. I'll be in touch with her in the meantime regarding her lab resultsand I may bring her back sooner with my PA to f/u on her symptoms. If you have any questions or concerns please feel free to call our office at . Dylan Michel MD, 06/06/2019, 11:14 This note was created using my previous note as a template; changes were made where appropriate, andall information in the current note is up to date to the best of my knowledge.Electronically signed by Dylan Michel MD at 2019 11:18 AM ESTdocumented in this encounter Plan of Treatment Date Type Specialty Care Team Description 07/10/2019 Lab Internal Medicine 07/17/2019 Office Visit Internal Medicine Damaso Sylvester MD [address] [place] [id number] 11/26/2019 Orders Only Cardiology 12/03/2019 Office Visit Cardiology Dylan Michel MD [address] [place] [address] [phone] Name Type Priority Associated Diagnoses Order Schedule ECHOCARDIOGRAM TTE CV Lab Routine Permanent atrial Expected: fibrillation 12/05/2019 Dilated cardiomyopathy (Approximate), (HCC) Expires: 07/10/2020 Pulmonary hypertension ([facility]) NT PROBNP Lab Routine Dilated cardiomyopathy Expected: ([facility]) 06/06/2019 (Approximate), Expires: 06/06/2020 COMPREHENSIVE METABOLIC Lab Routine Dilated cardiomyopathy Expected: PANEL ([facility]) 06/06/2019 (Approximate), Expires: 06/06/2020 Health Maintenance Due Date Last Done Comments [...] Type Problems Progress Blood Pressure Blood Pressure 128/88 No Keaton, < 140/90 (06/06/2019 SADE Alfonso 10:44 AM EST) Note: This is an individualized treatment (blood pressure) goal for Nicole Kaufman: Displayed above (on the left) is your goal for blood pressure control. Your most recent blood pressure is also shown above, on the right. You should try to achieve blood pressures that are lower than your goal listed above (on the left). Weight increase vs. 18 mo CHF 55 (06/06/2019 10:44 AM EST) No Naty Pugh FNP min (lbs) [...] and any After Visit Summaries. Consume a [id number] diet Lifestyle No Naty Pugh FNP Note: [...] filedocumented in this encounter Visit Diagnoses Diagnosis Permanent atrial fibrillation Atrial fibrillation Dilated cardiomyopathy (HCC) Other primary cardiomyopathies Pulmonary hypertension (HCC) Other chronic pulmonary heart diseases Essential hypertension Unspecified essential hypertension documented in this encounter Insurance Payer Benefit Plan / Subscriber ID Effective Dates Phone Address Type Group MEDICARE MEDICARE PART A & B xxxxxxxxxxx 2006-Present Medicare [facility] xxxxxxxxx 2016-Present [place] (Work) documented as of this encounter
[2019-06-27] MEDS ORDERED: Bacitracin OINTMENT* 0.5% 0.5 oz TUBE TOPICAL ONE (15:40)
--- NOTE | 2019-06-27 15:40 | ED ---
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 The wound has not been treated with abx since. Patient reports SOB. Patient denies fever. PMHx of CHF, WA, diabetes, HTN , A-fib. No PMHx of liver problems and blood clots in legs. Pt is currently on eliquis. The patient rates the pain 3/10 in severity. Symptoms aggravated by nothing. Symptoms alleviated by nothing. - History Of Current Complaint Chief Complaint: EDGeneral Time Seen by Provider: 06/27/19 15:12 Hx Obtained From: Patient Onset/Duration: Lasting Weeks, Still Present Timing: Constant Aggravating Factor(s): nothing Alleviating Factor(s): nothing Associated Signs And Symptoms: Positive: SOB, Edema - LLE, Other - Open wound on LLE. Negative: Fever - Allergies/Home Medications Allergies/Adverse Reactions: Allergies Allergy/AdvReac Type Severity Reaction Status Date / Time No Known Allergies Allergy Verified 06/27/19 13:50 PMH/Surg Hx/FS Hx/Imm Hx Endocrine/Hematology History: Reports: Hx Anticoagulant Therapy - eliquis, Hx Diabetes, Hx Anemia Cardiovascular History: Reports: Hx Coronary Artery Disease, Hx Hypercholesterolemia, Hx Hypertension, Hx Myocardial Infarction Respiratory History: Reports: Hx Chronic Obstructive Pulmonary Disease (COPD) GI History: Reports: Hx Hiatal Hernia History: Reports: Hx Kidney Stones Denies: Hx Kidney Infection, Hx Renal Disease Musculoskeletal History: Reports: Hx Arthritis, Other Musculoskeletal History - shoulder knee surgery Sensory History: Reports: Hx Contacts or Glasses Denies: Hx Hearing Aid Opthamlomology History: Reports: Hx Contacts or Glasses - Cancer History Cancer Type, Location and Year: Uterine CA initial dx 1989 - Surgical History Surgery Procedure, Year, and Place: [place], hysterectomy hernia repair gastroplasty Hx Anesthesia Reactions: No Infectious Disease History: No Infectious Disease History: Denies: Traveled Outside the [place] in Last 30 Days - Family History Known Family History: Positive: Diabetes Negative: Renal Disease - Social History Alcohol Use: None Hx Substance Use: No Substance Use Type: Reports: None Hx Tobacco Use: No Smoking Status (MU): Never Smoked Tobacco Have You Smoked in the Last Year: No Review of Systems Negative: Fever Positive: Shortness Of Breath Musculoskeletal: Other - Open wound on LLE Positive: Edema - LLE All Other Systems Reviewed And Are Negative: Yes Physical Exam - Summary Physical Exam Summary: Constitutional: Obesity Skin: Chronic skin changes, open wound on left lower leg, no active bleeding, does not appear infected HENT: Normocephalic; Atraumatic Eyes: Conjunctiva normal Neck: Musculoskeletal ROM normal neck. (-) JVD, (-) Stridor, (-) Tracheal deviation Cardio: irregular rhythm Pulmonary/Chest wall: Decreased breath sound due to body body habitus Abd: Soft, (-) tenderness, (-) Distension, (-) Guarding, (-) Rebound Musculoskeletal: LE bilateral edema Lymph: (-) Cervical adenopathy Neuro: Alert, Oriented x3 Psych: Mood and affect Normal Triage Information Reviewed: Yes Vital Signs On Initial Exam: Initial Vitals Temp Pulse Resp BP Pulse Ox 96.1 F 99 20 109/54 96 06/27/19 13:44 06/27/19 13:44 06/27/19 13:44 06/27/19 13:44 06/27/19 13:44 Vital Signs Reviewed: Yes Procedures - Sedation Patient Received Moderate/Deep Sedation with Procedure: No Diagnostics - Vital Signs Vital Signs Temp Pulse Resp BP Pulse Ox 06/27/19 13:44 96.1 F 99 20 109/54 96 - Laboratory Result Diagrams: 06/27/19 15:58 06/27/19 15:58 Lab Statement: Any lab studies that have been ordered have been reviewed, and results considered in the medical decision making process. - Radiology CXR Radiology Interpretation Completed By: Radiologist Summary of Radiographic Findings: IMPRESSION: LOW LUNG VOLUMES WITH DIFFUSE INTERSTITIAL OPACIFICATION SUGGESTIVE OF. INTERSTITIAL EDEMA, THOUGH THIS MAY BE ARTIFACTUALLY ACCENTUATED BY THE LOW LUNG VOLUMES. has reviewed this report. - EKG 1551 EKG Rhythm: Atrial Fibrillation Summary of EKG Findings: EKG at 1551 reveals A-Fib at a rate of 75 bpm. No ischemic changes. has reviewed and interpreted this EKG. 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 Physical exam findings: Gen: obesity. Respiratory: decreased breathing sound due to body habitus. Cardio: irregular rhythm. Musculoskeletal: LE bilateral edema. Skin: chronic skin changes, open would on left lower leg, no active bleeding, does not appear infected. Bloodwork results with no significant abnormalities except for L Hgb, L Hct, H RDW, L Plt Count, L Absolute Lymphs, H INR, H B- Natriuretic Peptide, H BUN, H Creatinine, H BUN/Creatinine, H Glucose, H Total Bilirubin, H Alkaline Phosphatase, L Albumin/Globulin Ratio, H Lipase. EKG at 1551 reveals A-Fib at a rate of 75 bpm. No ischemic changes. CXR shows LOW LUNG VOLUMES WITH DIFFUSE INTERSTITIAL OPACIFICATION SUGGESTIVE OF INTERSTITIAL EDEMA, THOUGH THIS MAY BE ARTIFACTUALLY ACCENTUATED BY THE LOW LUNG VOLUMES, per radiologist. Cleaning Associate Consult was called. In the ED course, the patient was given 1 application Bacitracin, 40 mg IV Furosemide. We discussed patient care with at 1733 who recommended admission. The patient will be admitted to the hospitalist. The patient is agreeable with this plan. - Diagnoses Provider Diagnoses: CHF (congestive heart failure), Peripheral edema, Leg wound, left - Physician Notifications Discussed Care Of Patient With: Luciano Ordaz - admit Time Discussed With Above Provider: 17:34 Instructed by Provider To: Admit As Inpatient Discharge ED - Sign-Out/Discharge Documenting (check all that apply): Patient Departure - admit - Discharge Plan Condition: Stable Disposition: ADMITTED TO [facility] Referrals: Damaso Sylvester MD [Primary Care Provider] - - Attestation Statements Document Initiated by Scribe: Yes Documenting Scribe: Billy Thurman Provider For Whom Jakeibe is Documenting (Include Credential): Jaime Groves DO Scribe Attestation: Billy Borden scribed for Jaime Groves DO on 06/27/19 at 1737. Status of Scribe Document: Ready
[2019-06-27 16:15] LABS: ABS Eosinophils 0.1 10^3/ul (0-0.6); ABS Lymphocytes 0.4 10^3/ul (1.0-4.8); ABS Monocytes 0.3 10^3/ul (0-0.8); Eosinophil % 2.4 %; Hematocrit 31 % (35-47); Hemoglobin 10.2 g/dL (12.0-16.0); Lymphocyte % 10.8 %; Mean Corpuscular HGB Conc 33 g/dL (31-36); Mean Corpuscular Hemoglobin 27 pg (27-31); Mean Corpuscular Volume 82 fL (80-97); Mean Platelet Volume 9.5 fL (7.4-10.4); Nucleated Red Blood Cells % 0.8; Platelet Count 73 10^3/uL (150-450); Red Cell Distribution Width 21 % (10-15); White Blood Count 3.8 10^3/uL (3.5-10.8)
[2019-06-27 16:23] LABS: INR 2.35 (0.82-1.09)
[2019-06-27] MEDS ORDERED: Furosemide IV* 10 MG/ML VIAL (40 MG) IV ONE (16:32)
[2019-06-27 16:35] LABS: Troponin I 0.02 ng/mL (<0.03)
[2019-06-27 16:45] LABS: Albumin 3.2 g/dL (3.2-5.2); Albumin/Globulin Ratio 0.8 (1-3); BUN/Creatinine Ratio 27.6 (8-20); Calcium 9.2 mg/dL (8.6-10.3); EGFR African American 54.7 (>60); EGFR Non-African American 45.2 (>60); Globulin 3.9 g/dL (2-4); Potassium 4.2 mmol/L (3.5-5.0); Total Bilirubin 2.4 mg/dL (0.2-1.0); Total Protein 7.1 g/dL (6.4-8.9)
[2019-06-27] MEDS ORDERED: Albuterol HFA INHALER* 8 gm MDI INH PRN (19:21)
[2019-06-27] MEDS ORDERED: Dextrose 50% Syringe 50 ML* 25 GM/50 ML SYRINGE IV PUSH PRN (19:27)
[2019-06-27] MEDS: Atorvastatin* 20 MG TAB PO SCH (22:49)
[2019-06-27] MEDS: Pramipexole TAB* 0.5 MG PO SCH (22:49)
[2019-06-27] MEDS: Pregabalin 50 mg CAP (*) PO SCH (22:49)
[2019-06-27] MEDS: Apixaban* 5 MG TAB PO SCH (22:49)
[2019-06-27] MEDS: Furosemide IV* 10 MG/ML 10 ML VIAL (100 MG) IV SCH (22:53)
--- NOTE | 2019-06-27 22:53 | HP ---
AMENDED REPORT NOW INCLUDES DESIGNATED COSIGNER - ESIGNED BEFORE ADJUSTMENT ADMISSION HISTORY AND PHYSICAL: DATE OF ADMISSION: 06/27/19 PRIMARY CARE PROVIDER: Dr. Sylvester. ATTENDING PHYSICIAN: Dr. Gonsales * (dictated by Kalpana Nino NP). CHIEF COMPLAINT: Bilateral leg swelling and increased SOB HISTORY OF PRESENT ILLNESS: Ms. Kaufman is a 79-year-old female, who presented to the emergency department today with complaints of increased swelling to bilateral lower extremities as well as generalized swelling and an increase in shortness of breath. It is noted that she was admitted to the hospital on 06/18 for hypoglycemia. At that time, her glucose levels were normalized and diabetic regimen was altered to do so. She then, on 06/20/19, had right bunionectomy with right fifth toe removal. She states that since then over the last week, she has noticed an increase in swelling to her legs and especially to her abdomen. She states that her shortness of breath has been getting worse over this last week. She states she is able to walk around her house with her walker without getting short of breath, but her daughter who is at her bedside reports that she noticed an unusual quality of her speech which sounded like shortness of breath over the phone a couple days ago and states that this was even worse yesterday when she talked to her. She states that her friend also confirmed this with her. The patient denies any fevers, chills, visual changes , headaches, chest pain, wheezing, nausea, vomiting, diarrhea, abdominal pain, difficulty urinating, blood in stool, unusual muscle or joint aches, rashes or lesions other than to her legs. The patient does state that she has had a cough for approximately the last month, states that she has been coughing up some clear sputum. Also states that she regularly has palpitations with exertion, says that she does not experience these with rest and states that this is nothing new for her. She has been on Eliquis for approximately the last year per her report. She states that she was switched from Coumadin by her rock singer to Eliquis. She is unsure of the exact reason. While in the emergency department today, the patient received Lasix 40 mg IV x1 dose. Due to the increase in swelling and shortness of breath along with history of CHF and other significant history, hospitalists were asked to evaluate the patient for admission. The patient states that a surrogate decision maker for her would be her daughter. PAST MEDICAL HISTORY: 1. Type 2 diabetes. 2. Hypertension. 3. Atrial fibrillation. 4. Nonischemic cardiomyopathy. 5. Dilated cardiomyopathy. 6. Obstructive sleep apnea, noncompliant with CPAP. 7. Restless legs. 8. Morbid obesity. 9. History of uterine cancer. 10. Congestive heart failure. 11. Hyperlipidemia. PAST SURGICAL HISTORY: 1. Cardiac catheterization in 2014, which was normal. 2. Cholecystectomy. 3. Gastric bypass. 4. Hysterectomy. 5. Umbilical hernia repair. 6. Toe amputation to the left foot x3 toes. 7. Right foot bunionectomy and fifth toe amputation. 8. Appendectomy. 9. Left shoulder rotator cuff repair. 10. Left total knee arthroplasty. HOME MEDICATIONS: 1. Torsemide 20 mg p.o. b.i.d. 2. Lyrica 50 mg p.o. t.i.d. 3. Mirapex 1 mg p.o. at bedtime. 4. Multivitamins and minerals 1 tab p.o. daily. 5. Metoprolol succinate XL 25 mg p.o. daily. 6. Lantus SoloSTAR 100 units per mL 40 units subcu daily. 7. Glucagon Emergency Kit 1 mg, see instructions p.r.n. 8. Vitamin B12 1000 mcg sublingual daily. 9. Atorvastatin 20 mg p.o. q.p.m. 10. Apixaban 5 mg p.o. b.i.d. 11. Albuterol HFA inhaler 1 to 2 puffs inhaled q.4 hours p.r.n. ALLERGIES: No known drug allergies. FAMILY HISTORY: Father with a history of heart disease, who is now related to a farming accident. Maternal grandmother with a history of stomach cancer. Brother with a history of esophageal cancer. SOCIAL HISTORY: The patient lives with her at home. They have a few steps to get up into their house. The patient denies any tobacco, alcohol, or illicit drug use. REVIEW OF SYSTEMS: A 10-point review of systems was completed with the patient. Please see HPI for all pertinent positives and negatives. PHYSICAL EXAMINATION CONSTITUTIONAL: The patient was noted to be sitting up in stretcher, in no acute distress. VITAL SIGNS: Last vital signs: Temperature 98.7, heart rate 85, respiratory rate 20, O2 sat 95% on room air, blood pressure 107/65. HEENT: PERRLA. No scleral icterus. RESPIRATORY: Lung sounds diminished throughout. Faint expiratory wheeze noted to left upper lobe. Fine inspiratory crackles noted to bilateral lower lobes. Normal rate and effort. CARDIOVASCULAR: Heart rate irregular. S1 and S2 present. No murmurs, rubs, or gallops noted. No JVD. +++ pitting edema throughout bilateral lower extremities. GI: Bowel sounds x4. Abdomen large, round, and distended. MUSCULOSKELETAL: Range of motion and strength to bilateral upper extremities within normal limits. Difficulties moving bilateral lower extremities. NEURO: Alert and oriented x3. PSYCH: Responds appropriately. Normal affect. SKIN: Darkened discoloration noted to bilateral lower extremities. Open wound bed to left tay with similar appearing small area noted to back of left calf. Small amount of serous drainage noted. DIAGNOSTIC STUDIES/LAB DATA: EKG shows atrial fibrillation. Chest x-ray, impression shows low lung volumes with diffuse interstitial opacification suggestive of interstitial edema, though this may be artifactually accentuated by the low lung volumes. WBC 3.8, RBC 3.8, hemoglobin 10.2, hematocrit 31, MCV 82, RDW 21, platelet count 73. INR 2.35. Sodium 141, potassium 4.2, chloride 106, carbon dioxide 29 , anion gap 6, BUN 32, creatinine 1.16, estimated GFR 45.2, BUN/creatinine ratio 27.6, glucose 176, calcium 9.2. Total bilirubin 2.4, AST 29, ALT 13, alk phosphatase 235. Troponin 0.02. BNP 136. Total protein 7.1, albumin 3.2, globulin 3.9, lipase 84. ASSESSMENT AND PLAN: Ms. Kaufman is a 79-year-old female with past medical history significant for type 2 diabetes, congestive heart failure, history of myocardial infarction, hypertension, atrial fibrillation, hyperlipidemia, cardiomyopathy, peripheral neuropathy, morbid obesity, and obstructive sleep apnea. She presented today to the emergency department with complaints of increasing swelling to bilateral lower extremities as well as generalized swelling and increasing shortness of breath. Hospital Medicine was asked to evaluate her for admission. 1. Congestive heart failure exacerbation. The patient has had increasing shortness of breath over the past week. She has significant edema. She is noted to have decreased breath sounds as well as inspiratory crackles to bilateral lower bases. Does not seem to be requiring oxygen at this time. Will hold torsemide, but give Lasix 60 mg IV b.i.d. Continue to monitor. Transthoracic echocardiogram ordered for reevaluation of structural cardiac function. 2. Diabetes mellitus, type 2. Had recent admission in relation to hypoglycemia , diabetic medication regimen had been changed as the patient was stabilized prior to discharge. Continue with current regimen. Fingersticks a.c., h.s. Heart healthy and consistent carb diet. 3. Thrombocytopenia. Platelet count 73. She has had a slight decrease in platelet count over the last few years, first noted to be thrombocytopenic in June 2018 for which her levels went up over the next couple of days and then it was noted again in July 2018 that she was thrombocytopenic and all recorded levels since then have been low. Her level today has been the lowest recorded value at 73. CBC ordered for tomorrow a.m. If remaining stable, may need to follow up with Hematology as an outpatient. 4. Hypertension, chronic condition. BPs have been stable during this admission , systolic has been in the low to mid 100s. We will continue with usual medication regimen. 5. Hyperlipidemia, chronic condition. We will continue with atorvastatin. 6. Cardiomyopathy. Noted again that we will be doing a transthoracic echocardiogram for which we can compare to prior transthoracic echocardiograms. 7. Obstructive sleep apnea, chronic condition. The patient is not compliant with a CPAP per her own report. We will continue with vital signs every 4 hours as per protocol and we will continue to monitor. 8. FEN: As mentioned above, we will continue with a heart healthy and consistent carb diet. No fluids as the patient is having a congestive heart failure exacerbation. 9. Code status: Full code. 10. DVT prophylaxis: The patient will continue with her usual Eliquis. Although her lower extremities are very tender, nursing may wrap them with Son wraps as tolerated by the patient. TIME SPENT: Approximately 75 minutes was spent on this admission with about half of that being [id number] with the patient and family for physical examination, interview, and reviewing the plan of care. Case reviewed by my attending physician, Dr. Gonsales, and she agrees with this plan. KALPANA NINO NP [id number]/[facility] #: [id number] KIERA
[2019-06-27] MEDS: Insulin LISPRO* 1 UNITS UNIT SUBCUT SCH (22:56)
[2019-06-27 23:23] LABS: Influenza A Molecular Negative (Negative); Influenza B Molecular Negative (Negative)
[2019-06-28 03:54] LABS: Urine Appearance Clear; Urine Bilirubin Negative (Negative); Urine Blood Negative (Negative); Urine Color Yellow; Urine Glucose Negative (Negative); Urine Ketones Negative (Negative); Urine Nitrite Negative (Negative); Urine Protein Negative (Negative); Urine Specific Gravity 1.006 (1.010-1.030); Urine Urobilinogen Positive (Negative)
[2019-06-28 07:12] LABS: ABS Eosinophils 0.1 10^3/ul (0-0.6); ABS Lymphocytes 0.6 10^3/ul (1.0-4.8); ABS Monocytes 0.4 10^3/ul (0-0.8); ABS Neutrophils 3.3 10^3/ul (1.5-7.7); Eosinophil % 3.3 %; Hematocrit 32 % (35-47); Hemoglobin 10.6 g/dL (12.0-16.0); Lymphocyte % 12.7 %; Mean Corpuscular HGB Conc 33 g/dL (31-36); Mean Corpuscular Hemoglobin 27 pg (27-31); Mean Corpuscular Volume 82 fL (80-97); Mean Platelet Volume 9.5 fL (7.4-10.4); Nucleated Red Blood Cells % 0.8; Platelet Count 82 10^3/uL (150-450); Red Blood Count 3.92 10^6 /uL (3.70-4.87); Red Cell Distribution Width 22 % (10-15); White Blood Count 4.4 10^3/uL (3.5-10.8)
[2019-06-28 07:27] LABS: BUN/Creatinine Ratio 28.4 (8-20); Calcium 9.3 mg/dL (8.6-10.3); EGFR African American 58.7 (>60); EGFR Non-African American 48.5 (>60); Potassium 4.1 mmol/L (3.5-5.0)
[2019-06-28] MEDS: Insulin LISPRO* 1 UNITS UNIT SUBCUT SCH ×4 (07:28→22:38)
[2019-06-28] MEDS: Acetaminophen TAB* 325 MG PO PRN (07:43)
[2019-06-28] MEDS: Furosemide IV* 10 MG/ML 10 ML VIAL (100 MG) IV SCH (07:44)
[2019-06-28] MEDS ORDERED: Perflutren Lipid Microsphere* 3 ML VIAL ONE (08:21)
[2019-06-28] MEDS ORDERED: Insulin GLARGINE(*) 1 UNITS UNIT SUBCUT SCH (09:00)
[2019-06-28] MEDS: Metoprolol Succinate XL TAB* 25 MG PO SCH ×2 (09:29→10:36)
[2019-06-28] MEDS: Pregabalin 50 mg CAP (*) PO SCH ×3 (09:34→22:37)
[2019-06-28] MEDS: Insulin GLARGINE(*) 1 UNITS UNIT SUBCUT SCH (09:34)
[2019-06-28] MEDS: Cyanocobalamin TAB* 500 MCG PO SCH (09:35)
[2019-06-28] MEDS: Apixaban* 5 MG TAB PO SCH ×2 (09:35→22:38)
[2019-06-28] MEDS: Multivitamins/Minerals TAB PO SCH (09:35)
--- NOTE | 2019-06-28 11:40 | PN ---
Subjective Date of Service: 06/28/19 Interval History: Ms. Kaufman states she presented to the ER due to b/l LE weeping. She has had 1 month of cough, 1 week of pink, productive sputum, which is now clear. She denies fevers, chills, but c/o occasional sweats. She c/o 1 week of QUIGLEY, but denies PND. She reports no change in diet, no change in rx, no missed medication doses. She is s/p bunionectomy, R 5th toe amputation performed in [place] 06/20/2019. Objective Active Medications: Acetaminophen (Tylenol Tab*) 650 mg PO Q4H PRN PRN Reason: MILD PAIN or TEMP > 100.4 Last Admin: 06/28/19 07:43 Dose: 650 mg Albuterol (Ventolin 2.5 Mg/3 Ml Neb.Luba*) 2.5 mg INH RT.[id number] AWAKE PRN PRN Reason: sob/wheezing Albuterol (Ventolin Hfa Inhaler*) 2 puff INH Q4H PRN PRN Reason: SHORTNESS OF BREATH Apixaban (Eliquis*) 5 mg PO BID [facility] Last Admin: 06/28/19 09:35 Dose: 5 mg Atorvastatin Calcium (Lipitor*) 20 mg PO QPM [facility] Last Admin: 06/27/19 22:49 Dose: 20 mg Cyanocobalamin (Vitamin B12 Tab*) 1,000 mcg PO DAILY [facility] Last Admin: 06/28/19 09:35 Dose: 1,000 mcg Dextrose (D50w Syringe 50 Ml*) 25 gm IV PUSH .FOR FS < 60 - SS PRN PRN Reason: FS < 60 Furosemide (Lasix Iv*) 40 mg IV DAILY [facility] Insulin Glargine (Lantus(*)) 20 units SUBCUT Q24H [facility] Last Admin: 06/28/19 09:34 Dose: 20 units Insulin Human Lispro (Humalog*) 0 units SUBCUT [facility]; Protocol Last Admin: 06/28/19 07:28 Dose: Not Given Metoprolol Succinate (Toprol Xl Tab*) 25 mg PO DAILY [facility] Last Admin: 06/28/19 10:36 Dose: 25 mg Multivitamins/Minerals (Theragran/Minerals Tab*) 1 tab PO DAILY [facility] Last Admin: 06/28/19 09:35 Dose: 1 tab Pramipexole Dihydrochloride (Mirapex Tab*) 1 mg PO BEDTIME [facility] Last Admin: 06/27/19 22:49 Dose: 1 mg Pregabalin (Lyrica 50 Mg Cap (*)) 50 mg PO TID [facility] Last Admin: 06/28/19 09:34 Dose: 50 mg Vital Signs: Temp Pulse Resp BP Pulse Ox 98.0 F 82 20 104/52 96 06/28/19 18:05 06/28/19 15:59 06/28/19 18:11 06/28/19 15:29 06/28/19 15:59 Oxygen Devices in Use Now: None Appearance: Ms. Kaufman is an obese elderly white female who is sitting up in bed. She has some increased work of breathing and in on supplemental oxygen. Eyes: No Scleral Icterus, PERRLA Ears/Nose/Mouth/Throat: NL Teeth, Lips, Gums, Clear Oropharnyx, Mucous Membranes Moist Neck: NL Appearance and Movements; NL JVP, Trachea Midline Respiratory: Symmetrical Chest Expansion and Respiratory Effort, - - fine bibasilar rales Cardiovascular: - - tachycardic and irregularly irregular without murmurs; 1+ pitting LE edema b/l; + JVD Abdominal: NL Sounds; No Tenderness; No Distention, No Hepatosplenomegaly Extremities: No Clubbing, Cyanosis Neurological: Alert and Oriented x 3, NL Muscle Strength and Tone - generalized weakness with 5/5 strength; cell operation supervisor strength equal Result Diagrams: 06/29/19 08:17 06/29/19 12:55 Assess/Plan/Problems-Billing Assessment: 79yof PMHx DM II, HTN, AF on AC, systolic heart failure, JOSHUA presents with QUIGLEY, b/l LE edema with suspected heart failure exacerbation. - Patient Problems (1) Cellulitis Comment: -RLE cellulitis -with hypothermia, tachycardia, hypotension -1L fluid bolus for infection and hypotension; concern for worsening HF exacerbation with IVF -mild improvement with fluid bolus -continue cefepime, vanco -ortho consulted; suspect cellulitis; recommend antibiotics, dressing changes -ID consulted (2) Acute on chronic systolic heart failure Comment: -pt with HF exacerbation -receiving IV lasix -at this time will hold IV lasix in setting of hypotension (3) Atrial fibrillation with RVR Comment: -AF with RVR in setting of infection -continue metoprolol -dig x1 dose now and monitor for improvement -continue DOAC (4) Amputation of fifth toe of right foot Comment: -s/p bunionette removal and R 5th toe amputation 06/20 -appears cellulitic -ortho consulted; do no suspect infection; recommend antibiotics, dressing changes -ID consulted (5) Thrombocytopenia Comment: -improving -continue to monitor for improvement (6) Diabetes Comment: -hypoglycemic this morning -decrease lantus to 20 -continue lispro ss with FS AC (7) Hypertension Comment: -SBP 100s -continue metoprolol -lasix use sparing in setting of hypotension (8) COPD (chronic obstructive pulmonary disease) Comment: -CXR consistent with COPD in past -quigley snot appear to be in exacerbation (9) Hyperlipidemia Comment: -continue atorvastatin (10) JOSHUA (obstructive sleep apnea) Comment: -non-compliant with CPAP (11) DVT prophylaxis Comment: -Jahaira (12) Full code status Status and Disposition: Observation. Discharge when stable. Critical care time spent: 40 minutes
--- NOTE | 2019-06-28 11:47 | ECHO ---
*[facility]* [place] [address] Fax #: [phone] Transthoracic Echocardiogram Patient: Nicole Kaufman : 1940 Study Date: 06/28/2019 Age: 79 Gender: F HR: 117 bpm Height: 65 in /165.1 cm BSA: 2.4 m^2 Weight: 314.3 lb /142.9 kg BMI: 52.4 kg/m^2 *Gift Basket Packer: * Paula Charles [facility] *Referring Physician: * Cathleen Cross *Reading Physician: * Sonu Sanchez MD Indications: Congestive Heart Failure. History: Atrial fibrillation. Pulmonary hypertension. PMH: Cardiomyopathy. Functional status: Not following treatment plan for sleep apnea. Risk factors: Hypertension. Diabetes mellitus. Morbidly obese. Hypercholesterolemia. Conclusions Summary: - Impressions: The study is unchanged since the study of January 2018. - Left ventricle: The cavity size is mildly dilated. Wall thickness is mildly increased. Systolic function is mildly reduced. The estimated ejection fraction is 40-45%. - Regional wall motion abnormality: Mild hypokinesis of the basal-mid anteroseptal and mid inferoseptal myocardium. - Right ventricle: The cavity size is moderately dilated. Wall thickness is mildly increased. Systolic function is moderately reduced. Systolic pressure is moderately increased. - Ventricular septum: There is diastolic flattening and systolic flattening. - Left atrium: The atrium is severely dilated. - Right atrium: The atrium is moderately to severely dilated. - Mitral valve: There is mild regurgitation. - Tricuspid valve: There is moderate-severe regurgitation. - Ascending aorta: The ascending aorta is mildly dilated. - Pulmonary arteries: Systolic pressure is moderately increased. - Inferior vena cava: The vessel is dilated. There is (< 50%) respiratory change in the IVC dimension. Study data: Transthoracic echocardiogram. Procedure: Transthoracic echocardiography was performed. Image quality was suboptimal. The study was technically limited due to body habitus. Intravenous Definity , 3 mlswas administered. Complete 2D, spectral Doppler, and color flow Doppler. Location: Bedside. Patient status: Inpatient. Patient room number: 412-02. The previous study was not available, so comparison is made to the report of January 2018. Rhythm: Atrial fibrillation. Findings Left ventricle: The cavity size is mildly dilated. Wall thickness is mildly increased. Systolic function is mildly reduced. The estimated ejection fraction is 40-45%. Regional wall motion abnormalities: Mild hypokinesis of the basal-mid anteroseptal and mid inferoseptal myocardium. Left ventricular diastolic function parameters are indeterminate. Right ventricle: The cavity size is moderately dilated. Wall thickness is mildly increased. Systolic function is moderately reduced. Systolic pressure is moderately increased. Ventricular septum: There is septal flattening of the interventricular septum consistent with RV volume or pressure overload. There is diastolic flattening and systolic flattening. Left atrium: The atrium is severely dilated. Right atrium: The atrium is moderately to severely dilated. Mitral valve: The Mitral valve annulus appears calcified. The leaflets are mildly thickened. There is no evidence of stenosis. There is mild regurgitation. Aortic valve: The valve is trileaflet. The leaflets are mildly thickened. There is no evidence of stenosis. There is no significant regurgitation. Tricuspid valve: The leaflets are normal thickness. There is no evidence of stenosis. There is moderate-severe regurgitation. Hepatic stephen flow reversal is present Pulmonic valve: The leaflets are normal thickness. There is no evidence of stenosis. There is trace regurgitation. Aorta: Aortic root: The aortic root is appears normal. Ascending aorta: The ascending aorta is mildly dilated. Aortic arch: The aortic arch is appears normal. Pericardium: A prominent pericardial fat pad is present. There is no significant pericardial effusion. Pulmonary arteries: The main pulmonary artery is normal-sized. Systolic pressure is moderately increased. Systemic veins: Inferior vena cava: The vessel is dilated. There is (< 50%) respiratory change in the IVC dimension. Measurements Left ventricle Value Ref Aortic valve Value Ref ABHAY, LAX (H) 5.5 cm 3.8 - 5.2 Meg diam, ED 2.1 cm ----- ESD, LAX (H) 4.1 cm 2.2 - 3.5 Peak v, S 1.24 m/sec ----- FS, LAX (L) 24 % 27 - 45 VTI, S 25.2 cm ----- PW, ED, LAX (H) 1.1 cm 0.6 - 0.9 Mean grad, S 3.0 mm Hg ----- FS (L) 24 % 27 - 45 Peak grad, S 6.0 mm Hg ----- PW, ED (H) 1.1 cm 0.6 - 0.9 LVOT/AV, VTI ratio 0.52 ----- E', lat meg, TDI 10.0 cm/sec >=10.0 E/e', lat meg, 10 Mitral valve Value Ref TDI Peak E 0.98 m/sec ----- E', med meg, TDI (L) 6.2 cm/sec >=7.0 Decel time 168 ms --- -- E/e', med meg, 16 Peak grad, D 3.8 mm Hg ----- TDI E', avg, TDI 8.1 cm/sec Pulmonic valve Value Ref E/e', avg, TDI 12 <=14 Peak v, S 1.18 m/sec --- -- Peak grad, S 6.0 mm Hg ----- LVOT Value Ref Peak antonio, S 0.82 m/sec Tricuspid valve Value Ref VTI, S 13.0 cm TR peak v (H) 3.2 m/sec <=2.8 Mean grad, S 1 mm Hg Peak RV-RA grad, S 41 mm Hg ----- Ventricular septum Value Ref Aortic root Value Ref IVS, ED (H) 1.1 cm 0.6 - 0.9 Root diam 3.6 cm <4.4 Right ventricle Value Ref Ascending aorta Value Ref AW thickness, ED (H) 0.7 cm 0.1 - 0.5 AAo AP diam, S 3.9 cm ----- ABHAY, LAX 4.3 cm ABHAY minor ax, A4C (H) 4.5 cm 1.9 - 3.5 Aortic arch Value Ref mid Arch diam 2.9 cm ----- Pressure, S 56 mm Hg Decending aorta Value Ref Left atrium Value Ref Fabiana peak antonio 0.63 m/sec ----- AP dim, ES (H) 5.00 cm 2.70 - 3.80 Pulmonary artery Value Ref ML dim, A4C 6.5 cm Pressure, S 50.0 mm Hg ----- SI dim, A4C 6.2 cm Vol/bsa, ES, 1-p (H) 48 ml/m^2 11 - 40 Inferior vena cava Value Ref A4C Diam 3.9 cm ----- Vol/bsa, ES, A/L (H) 70 ml/m^2 16 - 34 Right atrium Value Ref SI dim, ES (H) 6.6 cm 3.4 - 5.3 ML dim, ES, A4C (H) 5.3 cm 2.6 - 4.4 Estimated RAP 15 mm Hg Legend: (L) and (H) marcy values outside specified reference range. Prepared and electronically signed by Sonu Sanchez MD 06/28/2019 11:46
[2019-06-28] MEDS ORDERED: Digoxin IV* 0.5 MG/2 ML AMP (0.25 MG/ML) IV SLOW PU ONE ×2 (12:28→14:34)
[2019-06-28] MEDS ORDERED: Vancomycin(*) 2,000 MG in NS 0.9% 500 ML* 500 ML IVPB ONE ×2 (12:34→18:00)
[2019-06-28] MEDS ORDERED: NS 0.9% 1000 ML** 2,000 ML IV ONE (12:37)
[2019-06-28 12:48] LABS: C Reactive Protein 66.41 mg/L (<8.01)
[2019-06-28] MEDS ORDERED: Vancomycin per Pharmacy* NOTE FOLLOW UP SCH (13:00)
[2019-06-28] MEDS ORDERED: ceFAZolin 1 GM in Dextrose (*) 1 GM/50 ML BAG IVPB SCH (13:00)
[2019-06-28] MEDS: Diltiazem IV push/loading dose 5 MG/ML 5 ML vial (25 mg) IV SLOW PU ONE (13:12)
[2019-06-28] MEDS ORDERED: Cefepime 1 GM in Dextrose(*) 1 GM/50 ML BAG IV SCH (14:32)
[2019-06-28] MEDS: Cefepime 1 GM in Dextrose(*) 1 GM/50 ML q12h (Duplex) IV SCH (16:39)
[2019-06-28] MEDS ORDERED: Furosemide IV* 10 MG/ML 10 ML VIAL (100 MG) IV SCH (17:00)
--- NOTE | 2019-06-28 17:05 | CONS ---
ORTHOPEDIC CONSULTATION: DATE OF CONSULT: 06/28/19 PROVIDER: Shoaib Yusuf MD REASON FOR CONSULTATION: Right foot infection. HISTORY OF PRESENT ILLNESS: Nicole Kaufman is a 79-year-old female who presented to the emergency room with complaints of bilateral lower leg swelling and shortness of breath. She was admitted with a diagnosis of CHF exacerbation. Orthopedics asked a consult on the patient for questionable infection of the right lower extremity. On 06/20/19, the patient underwent a right foot 5th toe amputation for a bunionette deformity by . She could not recall the doctor's name at this time. She reports that she has been healing well. She has not had any fevers or noticed any redness around the incision. She is not scheduled to follow up with her surgeon until next week. She does have a history of peripheral neuropathy and does not report any pain in the foot. She has not noticed any drainage from the incision. PAST MEDICAL HISTORY: 1. Type 2 diabetes. 2. Hypertension. 3. Atrial fibrillation. 4. Nonischemic cardiomyopathy. 5. Obstructive sleep apnea. 6. Restless leg. 7. Morbid obesity. 8. History of uterine cancer. 9. Congestive heart failure. 10. Hyperlipidemia. PAST SURGICAL HISTORY: 1. Right foot 5th toe amputation. 2. Cholecystectomy. 3. Gastric bypass. 4. Hysterectomy. 5. Umbilical hernia repair. 6. Toe amputation to the left foot x3 toes. 7. Appendectomy. 8. Rotator cuff repair. 9. Left total knee arthroplasty. 10. Cardiac catheterization. HOME MEDICATIONS: 1. Torsemide 20 mg p.o. b.i.d. 2. Lyrica 50 mg p.o. t.i.d. 3. Mirapex 1 mg p.o. at bedtime. 4. Multivitamin and minerals daily. 5. Metoprolol succinate 25 mg p.o. daily. 6. Lantus SoloSTAR 100 units/mL 40 units subcu daily. 7. Glucagon Emergency Kit as needed. 8. Vitamin B12 1000 mcg sublingual daily. 9. Atorvastatin 20 mg daily. 10. Apixaban 5 mg p.o. b.i.d. 11. Albuterol HFA inhaler 1 to 2 puffs inhaled q.4 hours p.r.n. ALLERGIES: No known drug allergies. FAMILY HISTORY: Positive for heart disease, stomach cancer, and esophageal cancer. SOCIAL HISTORY: She lives with her at home. She ambulates with the use of a rolling walker. She is retired. She denies tobacco, alcoholic beverage, or drug use. REVIEW OF SYSTEMS: A 14-point review of systems was discussed with the patient. All systems were negative except discussed in the HPI. PHYSICAL EXAMINATION: The patient is 5 feet 5 inches, 315 pounds. Blood pressure 94/58, pulse of 133, respirations 18, O2 sat 92% on oxygen. General: She is a well-developed, well-nourished, pleasant female, in no acute distress at rest. She does appear slightly short of breath and is unable to answer in full sentence completely without multiple breaths in between. HEENT: Normocephalic/atraumatic. Her hearing and vision are grossly intact. Neck: Her trachea is midline. Cardiovascular: The patient had an irregular rate and rhythm. No murmurs, rubs, or gallops. Respiratory: Diffuse crackles bilaterally. Abdomen: Obese. Nontender. Extremities: Exam of the right lower extremity, there is a surgical incision to the lateral forefoot with sutures in place. There is a large amount of scabbing to the plantar aspect with some serous drainage. There is moderate erythema over the dorsum of the foot extending to just below the ankle. She has no tenderness to palpation given her neuropathy. She is able to flex and extend her MTP joints of the remaining toes. She has a brisk capillary refill. LABORATORY STUDIES: The patient has a white count of 4.4, H and H 10.6 and 32, platelets 82. CRP is 66.41. INR 2.35. IMAGING: There is no other imaging of the extremity available for review. IMPRESSION: Status post right foot 5th toe amputation with some overlying cellulitis. PLAN: This case was discussed with the hospitalist service and it is felt to be just cellulitis over the foot. At this time, there is no fluctuance on exam and no purulent drainage. She is afebrile at this time. It was recommended that she continue on IV antibiotics. Betadone i wet-to-dry dressing was placed over the incision along with an Son bandage to help control some of the swelling. Should the erythema not improve with daily dressing changes and the IV antibiotics, then an MRI could be considered to rule out underlying fluid collection or osteomyelitis of the foot. Case was discussed with Dr. Yusuf who is in agreement with the plan. Orthopedics will continue to follow. SHERWIN DENTON [id number]/[facility] #: [id number] KIERA
[2019-06-28] MEDS: Atorvastatin* 20 MG TAB PO SCH (19:09)
[2019-06-28] MEDS: Pramipexole TAB* 0.5 MG PO SCH (22:38)
[2019-06-29] MEDS: Cefepime 1 GM in Dextrose(*) 1 GM/50 ML q12h (Duplex) IV SCH (02:56)
[2019-06-29] MEDS: Vancomycin(*) 1,500 MG in NS 0.9% 250 ML* 250 ML IVPB SCH ×2 (05:53→17:40)
[2019-06-29] MEDS: Insulin LISPRO* 1 UNITS UNIT SUBCUT SCH ×4 (07:34→22:27)
[2019-06-29 08:41] LABS: ABS Eosinophils 0.1 10^3/ul (0-0.6); ABS Lymphocytes 0.8 10^3/ul (1.0-4.8); ABS Monocytes 0.4 10^3/ul (0-0.8); ABS Neutrophils 2.6 10^3/ul (1.5-7.7); ABS Nucleated RBC 0.1 10^3/ul; Hematocrit 34 % (35-47); Hemoglobin 10.4 g/dL (12.0-16.0); Mean Corpuscular HGB Conc 31 g/dL (31-36); Mean Corpuscular Hemoglobin 26 pg (27-31); Mean Corpuscular Volume 85 fL (80-97); Mean Platelet Volume 9.2 fL (7.4-10.4); Nucleated Red Blood Cells % 1.2; Platelet Count 76 10^3/uL (150-450); Red Blood Count 3.98 10^6 /uL (3.70-4.87); Red Cell Distribution Width 22 % (10-15)
[2019-06-29 08:48] LABS: BUN/Creatinine Ratio 25.8 (8-20); EGFR African American 50.6 (>60); EGFR Non-African American 41.8 (>60); Potassium 4.1 mmol/L (3.5-5.0)
[2019-06-29] MEDS ORDERED: Furosemide IV* 10 MG/ML 10 ML VIAL (100 MG) IV SCH ×2 (09:00)
[2019-06-29] MEDS: Metoprolol Succinate XL TAB* 25 MG PO SCH (09:06)
[2019-06-29] MEDS: Insulin GLARGINE(*) 1 UNITS UNIT SUBCUT SCH (09:13)
[2019-06-29] MEDS: Cyanocobalamin TAB* 500 MCG PO SCH (09:13)
[2019-06-29] MEDS: Apixaban* 5 MG TAB PO SCH ×2 (09:13→22:21)
[2019-06-29] MEDS: Multivitamins/Minerals TAB PO SCH (09:13)
[2019-06-29] MEDS: Pregabalin 50 mg CAP (*) PO SCH ×3 (09:13→22:21)
[2019-06-29] MEDS ORDERED: Atropine SYRINGE* 0.1 MG/ML 10 ML SYRINGE (1 MG) ONE (09:31)
--- NOTE | 2019-06-29 10:31 | PN ---
Hospitalist Progress Note Date of Service: 06/29/19 Called to room by nursing staff, who reports that the patient has been bradying down and having pauses. Upon review, the patient remains in AF, severely bradycardic, with multiple pauses. She was seen in her room, and appears fatigued and states that she is tired. Cardiology was consulted. Atropine 0.3mg IV was pushed with EKG monitoring in place, and the patients heart rate increased to 50-70's. She reports feeling better, stating "I feel like I can get up" and felt less weak. She will be transferred to ICU at this time, as there is need for further intervention and monitoring, including further chronotropics, possible temporary pacemaker, and possible permanent pacemaker placement. Daughter, Rachel, has been notified, and would like to be kept updated. Her number is: [phone]
--- NOTE | 2019-06-29 10:52 | PN ---
Progress Note - Progress Note Date of Service: 06/29/19 SOAP: Subjective: [The pt was seen in the ICU today. She was transfered due to multiple pauses of her heart the longest of which was 9 seconds. They will continue to monitor her. She otherwise states that she is feeling well. Has no other complaints. ] Objective: [General: Pt is awake and oriented MSK, RLE: Dressing was changed. incisions are present and we are able to express mild amount of bloody drainage. No purulence is expressed at this time. Redressed with betadine soaked guaze, regular gauze, kerlex and ROSA. She is significantly neuropathic and does not have feeling in the foot at baseline. ] Vital Signs Temp 96.8 F 06/29/19 07:15 Pulse 58 06/29/19 07:15 Resp 18 06/29/19 09:13 BP 102/51 06/29/19 07:15 Pulse Ox 100 06/29/19 07:15 Intake & Output 06/28/19 06/29/19 06/29/19 18:59 06:59 18:59 Intake Total 871 1515 360 Output Total 0 Balance 871 1515 360 Intake: IV Fluids 452 1015 ABX - VANCOMYCIN 15 NS (0.9%) 452 1000 IVPB 59 500 ABX - CEFTRIAXONE 59 ABX - VANCOMYCIN 500 Oral 360 0 360 Output: Urine 0 Other: Estimated Void Medium Assessment: IMPRESSION: Status post right foot 5th toe amputation with some overlying cellulitis. Plan: [Continue with IV abx per ID We will continue with betadine wet to dry dressings daily on the pt over the wound. Should the erythema not improve with daily dressing changes we will obtain an MRI ]
[2019-06-29] MEDS ORDERED: Atropine SYRINGE* 0.1 MG/ML 10 ML SYRINGE (1 MG) IV ONE (11:00)
[2019-06-29 11:18] LABS: Digoxin 0.9 ng/ml (0.8-2.0)
--- NOTE | 2019-06-29 11:39 | CONSULT ---
Subjective Date of Service: 06/29/19 Interval History: Ms. Kaufman is a 79-year-old female with past medical history significant for DM2 , HTN, a fib, cardiomyopathy, JOSHUA, RLS, morbid obesity, uterine cancer, CHF, HLD , chronic venous stasis, who underwent right fifth toe amputation on 06/20/19. She presented to the hospital with complaints of LE edema and shortness of breath. She admitted for CHF exacerbation. During her stay she developed bradycardia and required transfer to the ICU. She reports that she has a long history of ulcers on her legs, these are typically treated with unna boots. She presented to the hospital with venous stasis ulcers to her left leg. She recently had surgery on her right foot and has a surgical wound, this is being managed by Orthopedics. Patient seen and examined at bedside. Verbal consent obtained for wound consultation and photographs. Family History: Unchanged from Admission Social History: Unchanged from Admission Past Medical History: Unchanged from Admission Review of Systems - Measurements Intake and Output: Intake and Output Last 24 Hours 06/27/19 06/28/19 06/29/19 06/30/19 06:59 06:59 06:59 06:59 Intake Total 0 2386 360 Output Total 2700 0 Balance -2700 2386 360 Weight 315 lb 8 oz Intake: IV Fluids 1467 ABX - VANCOMYCIN 15 NS (0.9%) 1452 IVPB 559 ABX - CEFTRIAXONE 59 ABX - VANCOMYCIN 500 Oral 0 360 360 Output: Urine 2700 0 Other: Estimated Void Large Medium # Voids 2 - Review of Systems Constitutional Symptoms: Negative: Fever, Other - Chills Dermatology: Positive: Other - Wound to the left leg Endocrinology: Positive: Obesity, Diabetes Mellitus Objective Active Medications: Acetaminophen (Tylenol Tab*) 650 mg PO Q4H PA Reason: MILD PAIN or TEMP > 100.4 Albuterol (Ventolin 2.5 Mg/3 Ml Neb.Luba*) 2.5 mg INH RT.Q4HR PRN Reason: sob/ wheezing Albuterol (Ventolin Hfa Inhaler*) 2 puff INH Q4H PRN Reason: SHORTNESS OF BREATH Apixaban (Eliquis*) 5 mg PO BID EFREN Atorvastatin Calcium (Lipitor*) 20 mg PO QPM EFREN Cyanocobalamin (Vitamin B12 Tab*) 1,000 mcg PO DAILY EFREN Dextrose (D50w Syringe 50 Ml*) 25 gm IV PUSH PRN Reason: FS < 60 Cefepime HCl (Maxipime 1 Gm In Dextrose Duplex (*)) 1 gm in 50 mls @ 100 mls/hr IV Q12H EFREN Vancomycin HCl 1,500 mg/ (Sodium Chloride) 250 mls @ 166.667 mls/hr IVPB Q12H EFREN Insulin Glargine (Lantus(*)) 20 units SUBCUT Q24H EFREN Insulin Human Lispro (Humalog*) 0 units SUBCUT ACHS EFREN; Protocol Metoprolol Succinate (Toprol Xl Tab*) 25 mg PO DAILY EFREN Multivitamins/Minerals (Theragran/Minerals Tab*) 1 tab PO DAILY EFREN Pramipexole Dihydrochloride (Mirapex Tab*) 1 mg PO BEDTIME EFREN Pregabalin (Lyrica 50 Mg Cap (*)) 50 mg PO TID EFREN Vital Signs 06/29/19 11:03 Temperature 96.9 F Pulse Rate 51 Respiratory 16 Rate Blood Pressure 112/62 (mmHg) O2 Sat by Pulse 96 Oximetry Oxygen Devices in Use Now: Nasal Cannula Appearance: NAD, laying in bed Ears/Nose/Mouth/Throat: Mucous Membranes Moist Respiratory: Symmetrical Chest Expansion and Respiratory Effort Extremities: - - Bilatral LE edema. DP 1+ bilateral Skin: - - See skin note below Neurological: Alert and Oriented x 3 Result Diagrams: 07/02/19 05:40 07/02/19 05:40 Additional Lab and Data: Above labs were pulled into the note, when the note was edited prior to signing. See below for labs from day of consultation. Laboratory Tests 06/29/19 06/29/19 08:17 12:55 WBC 4.0 Hgb 10.4 L Hct 34 L Plt Count 76 L Sodium 141 Potassium 3.8 Chloride 109 Carbon Dioxide 27 BUN 30 H Creatinine 1.10 H Glucose 108 H Total Protein 6.5 Albumin 2.9 L Diagnostic Imagin. Exam Date: 06/29/19 1517 - VL LOWER EXT VEINS BILATERAL IMPRESSION: No bilateral lower extremity deep vein thrombosis. 2. Exam Date: 05/05/15 - CTA ABD AORTA & RUNOFF IMPRESSION: 1. MILD ATHEROSCLEROTIC CHANGE. NO EVIDENCE FOR HEMODYNAMICALLY SIGNIFICANT STENOSIS. 2. BILATERAL LOWER EXTREMITY VARICOSE VEINS.. 3. Exam Date: 02/19/15 - VL ANK/BRACHIAL INDICES Right: The posterior tibial ankle brachial index is 1.3. The dorsalis pedis ankle brachial index is 1.53. The digital brachial index is 0.83. The posterior tibial waveform is triphasic. The dorsalis pedis waveform is triphasic. Left: The posterior tibial ankle brachial index is 1.19. The dorsalis pedis ankle brachial index is 1.06. The posterior tibial waveform is triphasic. The dorsalis pedis waveform is biphasic. IMPRESSION: 1. INCREASED ANKLE-BRACHIAL INDICES ON THE RIGHT AND TO A LESSER EXTENT ON THE LEFT, CONSISTENT WITH DECREASED COMPLIANCE IN THE SETTING OF ARTERIOSCLEROSIS. 2. 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 Skin Deviation Note - Skin Deviation Findings Left lateral lower leg - There is a open ulcer, measures 4.5 cm x 7 cm x 0.1 cm. The wound base is red granulation tissue. The surrounding skin is slightly macerated. There is a moderate amount of serous drainage. There is no odor. Wound Problem/Plan Assessment: Ms. Kaufman is a 79-year-old female with past medical history significant for DM2 , HTN, a fib, cardiomyopathy, JOSHUA, RLS, morbid obesity, uterine cancer, CHF, HLD , chronic venous stasis, who underwent right fifth toe amputation on 06/20/19. She presented to the hospital with complaints of LE edema and shortness of breath. She admitted for CHF exacerbation. During her stay she developed bradycardia and required transfer to the ICU. She presented to the hospital with venous stasis ulcers to her left leg and a surgical site to the right lateral foot. 1. Left lower leg venous stasis ulcer. Recommend washing the leg with soap and water. Apply calcium alginate followed by ABD pad, and rolled gauze and change every other day or as needed for drainage. If there is a significant amount of drainage, change DSG daily. Keep legs elevated. Refer back to Wound Center or provider that typically manages her outpatient. 2. S/P right 5th toe amputation. Management per Orthopedics. 3. DM2. No recent HgA1C in the EMR. Consider checking a HgA1C. Maintain glycemic control to allow for wound healing. 4. Morbid Obesity. BMI 55.9. 5. Nutrition. Recommend meeting nutrition requirements to assist with wound healing (Protein 1.2-1.5 grams/kg per day and Calories 30-35 kcal/kg per day). Heart Healthy Diet. 6. Code Status. Full Code Status. 7. Disposition. Inpatient, disposition per primary medicine team. TIME SPENT: Time for this wound consultation was 20 minutes and 10 minutes was spent with the patient discussing past medical history; removing the old dressing; assessing, measuring, and photographing the wound; reapplying a new dressing. Is Patient a Wound Clinic Patient: No Attending: Kia Hernadez
[2019-06-29 13:29] LABS: Albumin 2.9 g/dL (3.2-5.2); Anion Gap 5 mmol/L (2-11); CO2 Carbon Dioxide 27 mmol/L (22-32); Calcium 8.3 mg/dL (8.6-10.3); Chloride 109 mmol/L (101-111); Potassium 3.8 mmol/L (3.5-5.0); Sodium 141 mmol/L (135-145)
--- NOTE | 2019-06-29 13:31 | CONS ---
CC: Dr. Sonu Sanchez; Dr. Sylvester; Dr. Michel CARDIOLOGY CONSULTATION: DATE OF CONSULT: 06/29/19 REASON FOR EVALUATION: Urgent evaluation for bradycardia and pauses up to 9 seconds. HISTORY OF PRESENT ILLNESS: This is a very pleasant 79-year-old woman with a history of hypertension, diabetes, nonischemic cardiomyopathy, hyperlipidemia, AFib. She was admitted in May with episodes of hypoglycemia and her medications were adjusted. She was admitted again on 06/28/19 due to worsening bilateral leg swelling and shortness of breath. She was found to be in AFib with a rapid ventricular response. She apparently had a cath in 2014. Her chest x-ray, interstitial edema and she was treated with Lasix and IV digoxin 0.5 mg twice in 2 hours. She apparently was doing fairly well until this morning where she was noted to have pauses up to 9 seconds, I was called urgently to the bedside. The patient was mentating, but seemed lethargic and had heart rates in the 30s and 40s. She was given atropine 0.3 mg with an increase in a heart rate to the 50s and to 70s and felt somewhat better. She was transferred to the unit. She reports she had an episode of syncope 2 weeks ago, but apparently that was in the setting of low sugars and she could not describe it further. She said that she has had AFib for some time and does not recall being told she might need a pacemaker, but she said her heart rates have been fast and slow in the past. She denies chest pain. No incontinence. No fevers, chills or sweats. She does state she has a runny nose for the last 2 weeks. She denies orthopnea, uses 1 pillow at night. She does report that over the last month or so, she has noted increased swelling in her legs and increased weight, initially responded to increased oral diuretics, but she is here now because of worsening edema. She had a right bunionectomy and right fifth toe removal on 06/20/19 and that she said over the week after that, she noticed increased swelling in her legs and her abdomen and that her shortness of breath had gotten worse. This was obtained from her admission note from 10/09. Of note, she also was switched from Coumadin to Eliquis over the last year. She got Lasix in the ER on 06/27/19 and was admitted for further evaluation. PAST MEDICAL HISTORY: Includes: 1. Hypertension. 2. Nonischemic cardiomyopathy with reported cath in 2014, which was negative. 3. Diabetes. 4. Hyperlipidemia. 5. Obesity. 6. Sleep apnea. 7. Diabetic neuropathy. 8. Sleep apnea, noncompliant with her mask. 9. Atrial fibrillation. 10. Restless legs syndrome. 11. History of uterine cancer. 12. Congestive heart failure. PAST SURGICAL HISTORY: 1. Cardiac catheterization in 2014, reportedly normal. 2. Cholecystectomy. 3. Gastric bypass. 4. Hysterectomy. 5. Umbilical hernia repair. 6. Toe amputation on the left foot x3 toes. 7. Right foot bunionectomy and 5th toe removal in May 2019. 8. Appendectomy. 9. Left shoulder rotator cuff repair. 10. Left total knee arthroplasty. MEDICATIONS: Her home medications as an inpatient include: 1. Torsemide 20 mg b.i.d. 2. Lyrica 50 mg b.i.d. 3. Mirapex 1 mg at bedtime. 4. Metoprolol 25 mg daily. 5. Insulin glargine 40 units subcu daily. 6. Glucagon 1 mg p.r.n. 7. Vitamin B12 1000 mcg a day. 8. Atorvastatin 20 mg a day. 9. Eliquis 5 mg b.i.d. 10. Albuterol 1 to 2 puffs INR q.4 p.r.n. ALLERGIES: She denies any allergies. FAMILY HISTORY: Includes a father who had a heart disease, but of a farming accident of unclear etiology. Her mother at 91. She has 2 sisters who are alive and well. SOCIAL HISTORY: She lives at home with her . When she is feeling well, she is able to go to the supermarket and walk with a cart with him. She is able to get up 3 steps in the house when she feels well. She denies tobacco or alcohol use and normally rare caffeine. REVIEW OF SYSTEMS: Review of systems x10 was negative except as above. She states she has had a runny nose for the last couple of weeks, but no fevers. Denies diarrhea. PHYSICAL EXAM: She is a well-developed, morbidly obese female with a BMI greater than 50. Her blood pressure was 109/67 and heart rate of 69 and regular after administration of atropine. Atraumatic, normocephalic. Extraocular muscles intact. Carotids present. No transmitted murmurs or bruits heard. JVD was difficult to assess due to body habitus. Cardiac Exam: S1, S2 with a 1-2/6 systolic ejection murmur at the base and a 3/6 holosystolic murmur at the left lower sternal border. Chest: Clear. Abdomen: Morbidly obese. Exam is somewhat limited. No tenderness. Femoral pulses intact without bruits. Distal pulses difficult to appreciate due to 2+ edema in lower extremities and chronic venous stasis changes. Motor strength is 5/5 bilaterally. Deep tendon reflexes are 1/4. Alert and oriented x3. DIAGNOSTIC STUDIES/LAB DATA: Her echocardiogram from this admission on revealed an EF of 40% to 45%, mild LVH, mildly reduced LV function, mild hypokinesis at the basal mid anterior septal and mid inferior septal myocardium. RV was moderately dilated RVH, moderately reduced RV function, systolic pressure moderately increased. There was septal flattening and systolic flattening of the septum consistent with RV volume or pressure overload. Severe left atrial enlargement and moderate to severe right atrial enlargement. Mild MR. Moderate to severe TR. Perhaps mildly dilated ascending aorta. Inferior vena cava was dilated. We got a report from Dr. Michel that her echo from March 2018 revealed an EF of 45% with severe left atrial enlargement, severe TR and PA pressure of 76. She had a cath in 2014, which revealed normal coronaries wedge, but was severely elevated at 41. Her EKG from yesterday revealed AFib with poor R-wave progression and possible anteroseptal PA, nonspecific QRS widening. EKG from today revealed AFib with a heart rate of 42, poor R-wave progression. Her EKG from July 2018 revealed AFib with poor R-wave progression, nonspecific QRS widening and heart rate of 83. Her chest x-ray from 06/27/19 revealed low lung volumes, diffuse interstitial opacification suggestive of interstitial edema that may be artifactually accentuated by the low lung volumes. Her labs include mild anemia, hemoglobin of 10.4, hematocrit of 34, platelet count was 76 and platelet count was 94 on 06/18/19. Sodium 140, potassium 4.1, BUN of 32, creatinine of 1.24 which is up from 1.16 on 06/27/19 and up from 0.82 in July 2018. Dig level from this morning was 0.9. INR was 2.35. BNP on admission on 06/27/19 was 136. IMPRESSION AND PLAN: My impression is that Ms. Kaufman has cor pulmonale and severe TR possibly due to obesity and untreated sleep apnea. She has atrial fibrillation and progressive shortness of breath possibly related to decompensated congestive heart failure, poor rate control. At this point, I recommend the followin. I would hold her digoxin given her low heart rate. 2. Would use p.r.n. atropine and consider the use of dobutamine if needed to improve RV contractility and maintain her heart. 3. We could also consider use of dopamine if necessary. 4. If she continues to have pauses unresponsive to medical therapy, we could consider a temporary pacemaker. 5. I did discuss with her the possibility of terminologist, which she might benefit from permanent pacemaker to avoid tachybrady syndrome. 6. Her decompensated congestive heart failure might be due to worsening intestinal edema due to right-sided heart failure and poor absorption of medicines. She may require IV diuretics for the near future. 7. She has a history of being treated with Aldactone and low dose beta- blockers. 8. We may have to reconsider her dosage depending on how her renal function and heart rates and blood pressures respond to the above interventions. 9. Her prognosis is guarded given her morbid obesity and severe RV dysfunction. 10. She is on the home medicines plus Maxipime 1 g q.12 and vancomycin 1500 mg q.12. 11. Her BMI is 52.5, she is 5 feet 5 inches, 315 pounds. The dosing for Eliquis in this degree of severe obesity is uncertain and I would recommend using IV heparin until we make a decision about a permanent pacemaker placement. I would also consider switching her back to Coumadin over the terminologist. \ 12. Would also consider a possibility of DVT. Discussed possibly obtaining venous dopplers to evaluate this dx. Above discussed with Kristyn Robertson and Dr. Michelle. Her prognosis is guarded given her pulmonary htn and right heart failure. [id number]/[facility] #: [id number] [facility]
[2019-06-29 13:35] LABS: ALT 11 U/L (7-52); AST 27 U/L (13-39); Albumin/Globulin Ratio 0.8 (1-3); Alkaline Phosphatase 215 U/L (34-104); BUN/Creatinine Ratio 27.3 (8-20); Blood Urea Nitrogen 30 mg/dL (6-24); EGFR African American 58.1 (>60); Globulin 3.6 g/dL (2-4); Glucose 108 mg/dL (70-100); Total Protein 6.5 g/dL (6.4-8.9)
[2019-06-29 14:02] LABS: % Iron Saturation 16 % (15-55); Iron 60 ug/dL (50-212); Total Iron Binding Capacity 378 mcg/dL (250-450); Transferrin 270 mg/dL (203-362)
[2019-06-29 14:14] LABS: TSH (Thyroid Stimulating Horm) 6.08 mcIU/mL (0.34-5.60)
--- NOTE | 2019-06-29 14:21 | CONS ---
CONSULTATION REPORT: DATE OF CONSULT: 06/29/19 PRIMARY CARE PROVIDER: Dr. Damaso Sylvester. PROVIDER REQUESTING CONSULTATION: Angelic Cornejo NP. CONSULTING SERVICE: Infectious Disease. PROVIDER: Karlee Perera NP ATTENDING PROVIDER: Dr. Jorge Torres * (DICTATED BY KARLEE PERERA NP). REASON FOR CONSULT: Cellulitis and possible osteomyelitis in the right foot. IMPRESSION: 1. Right lower extremity cellulitis. The patient is status post right fifth toe amputation on 06/20/19 in [place] at a surgery center. She denies any fevers or chills. She has no leukocytosis. Her CRP was elevated at 66.41 yesterday. There is no purulent drainage or area to culture at this time, incision to the lateral aspect of the foot with dry eschar. There is slight erythema to the dorsal aspect of the foot. She has been seen by Orthopedic Surgery, who is performing daily Betadine dressing changes to the area. 2. Chronic venous insufficiency. The patient has venous stasis ulcers to the left lower extremity. 3. Diabetes mellitus with peripheral neuropathy. 4. Morbid obesity. BMI 52.5. 5. Congestive heart failure. RECOMMENDATIONS/PLAN: Recommend discontinuing cefepime, and continue vancomycin , trough goal 10 to 15. Will obtain a CRP tomorrow. Hold off on MRI at this time, but we could consider further imaging if she fails to improve on IV antibiotics. Final recommendations will be based on the patient's clinical course. HISTORY OF PRESENT ILLNESS: Ms. Kaufman is a 79-year-old female with past medical history significant for diabetes mellitus type 2, hypertension, atrial fibrillation, cardiomyopathy, obstructive sleep apnea, restless leg syndrome, morbid obesity, uterine cancer, congestive heart failure, hyperlipidemia, chronic venous stasis, who underwent right fifth toe amputation on 06/20/19. She had been doing well over the course of the week, but had noticed swelling in her legs and abdomen. She had also noted shortness of breath, and was having difficulty ambulating due to the shortness of breath. She denied any fevers or chills. She does report bilateral lower extremity peripheral neuropathy in the setting of her diabetes. Denied any pain in her feet and not noticed any drainage from her incision. She presented to the emergency room with complaints of bilateral lower extremity edema and shortness of breath. While in the emergency room, she received IV Lasix, had labs showing white blood cell count of 3.8 and chest x-ray showing suggestions of interstitial edema. She was noted to have darkened discoloration of bilateral lower extremities with an open wound to her left tay. She was referred to the hospitalist service for admission. While in the hospital, she is being treated for cellulitis, status post left foot surgery with a left fifth toe amputation. Orthopedics saw the patient in consultation. She is getting wet-to-dry Betadine dressings per Orthopedics. She was placed on vancomycin and cefepime for cellulitis at admission. She continues to have no leukocytosis, and has been afebrile. CRP yesterday was 66.41. She had a negative urinalysis. Influenza A and B negative. The patient is unable to see her feet to be able to know if her redness is improving. During her stay, she was noted to have multiple long pauses on telemetry and has been transferred to the intensive care unit. PAST MEDICAL HISTORY: 1. Diabetes mellitus, type 2. 2. Hypertension. 3. Atrial fibrillation. 4. Cardiomyopathy. 5. Obstructive sleep apnea, noncompliant with CPAP. 6. Restless leg syndrome. 7. Morbid obesity. 8. Uterine cancer. 9. Congestive heart failure. 10. Hyperlipidemia. 11. Venous insufficiency with chronic venous stasis ulcers. PAST SURGICAL HISTORY: 1. Status post cardiac catheterization. 2. Status post cholecystectomy. 3. Status post gastric bypass. 4. Status post hysterectomy. 5. Status post umbilical hernia repair. 6. Status post left first, second, and third toe amputations due to "diabetic infections." 7. Status post right foot bunionectomy and fifth toe amputation on 06/20/19. MEDICATIONS: Home Medications: 1. Torsemide 20 mg by mouth twice daily. 2. Pregabalin 50 mg by mouth 3 times daily. 3. Mirapex 1 mg by mouth daily. 4. Multivitamin 1 tablet by mouth daily. 5. Metoprolol succinate 25 mg by mouth daily. 6. Lantus insulin 40 units subcutaneous daily. 7. Glucagon 1 mg subcutaneous injection as needed for hypoglycemia. 8. Vitamin B12 1000 mcg sublingual daily. 9. Atorvastatin 20 mg by mouth daily. 10. Eliquis 5 mg by mouth twice daily. 11. Albuterol HFA inhaler 1 to 2 puffs inhalation every 4 hours as needed for shortness of breath. Hospital Medications: 1. Acetaminophen 650 mg by mouth every 4 hours as needed for fever or pain. 2. Albuterol 2.5 mg inhalation every 4 hours while awake as needed for shortness of breath or wheeze. 3. Albuterol HFA inhaler 2 puffs inhalation every 4 hours as needed for shortness of breath or wheeze. 4. Eliquis 5 mg by mouth twice daily. 5. Atorvastatin 20 mg by mouth daily. 6. Vitamin B12 1000 mg by mouth daily. 7. Dextrose 25 mg IV for glucose less than 60 as needed. 8. Lantus 20 units subcutaneous daily. 9. Humalog insulin sliding scale before meals and at bedtime. 10. Metoprolol succinate 25 mg by mouth daily. 11. Multivitamin 1 tablet by mouth daily. 12. Mirapex 1 mg by mouth daily. 13. Pregabalin 50 mg by mouth 3 times daily. 14. Vancomycin 1500 mg IV every 12 hours. 15. Cefepime 1 g IV every 12 hours. ALLERGIES: No known drug allergies. FAMILY HISTORY: Denies family history of recurrent or resistant infections. Father with a history of heart disease, passed secondary to a farming accident. No family history of diabetes. Maternal grandmother with a history of stomach cancer. Brother with a history of esophageal cancer. SOCIAL HISTORY: Denies alcohol, tobacco, or recreational drug use. REVIEW OF SYSTEMS: I performed a 10-point review of systems. All the pertinent positives and negatives are mentioned in the history of present illness. The remaining review of systems are negative. She denies any recent travel. PHYSICAL EXAM: Vital Signs: Temperature 96.9, heart rate 51, respiratory rate 16, O2 sat 96% on 2 L via nasal cannula, blood pressure 112/62. General Appearance: In no acute distress, sitting up in bed. Head: Normocephalic, atraumatic. ENT: Extraocular movements are intact. No subconjunctival hemorrhage. Moist mucous membranes. Neurological: Alert and oriented. Moves all extremities. Cardiovascular: Irregular rate and rhythm. S1 and S2 present. No murmurs, rubs, or gallops heard. 2+ bilateral lower extremity edema. Respiratory: Lungs are clear to auscultation bilateral, but diminished anteriorly. Abdomen: Bowel sounds present. Abdomen is large, soft, nontender , nondistended. Extremities: Again, 2+ bilateral lower extremity edema. She has 1+ bilateral DP pulses. Musculoskeletal: No clubbing or cyanosis noted. She exhibits good strength in all extremities. Psychological: Calm and cooperative. Skin: No rashes seen. She has venous stasis ulcer to the left lateral lower leg with red epithelial tissue present in 100% of the wound base, surrounding skin with chronic skin changes secondary to venous stasis. The right lower extremity with chronic venous stasis changes. There is a slight erythema to the dorsal aspect of the right foot. There is an incision to the lateral aspect of the right foot with a small open area within the incision. There are sutures intact. There is scant amount of serosanguineous drainage and there is some dry eschar noted along the incision line. No purulent drainage. DIAGNOSTIC STUDIES/LAB DATA: Sodium 140, potassium 4.1, chloride 107, CO2 of 27 , BUN 32, creatinine 1.24, glucose 58. White blood cell count 4, hemoglobin 10.4, hematocrit 34, and platelet count 76. Please see impression and recommendations outlined above. Recommendations have been discussed with SHERWIN Anthony Thank you for asking us to see Ms. Kaufman in consultation. The case has been reviewed with my attending, Dr. Jorge Torres, who agrees with the plan of care. Reviewed by LIAT PADILLA 07/03/19 1330 [id number]/[facility] #: [id number] MTDD
[2019-06-29 14:22] LABS: Ferritin 74.2 ng/mL (11-307)
[2019-06-29 14:26] LABS: Folate 17.18 ng/mL (>3.99)
[2019-06-29] MEDS ORDERED: DOBUTamine 2000 MCG/ML IVPREMX 500 MG/250 ML BAG IV SCH (15:00)
[2019-06-29] MEDS: Atorvastatin* 20 MG TAB PO SCH (17:40)
--- NOTE | 2019-06-29 17:52 | PN ---
Progress Note - Progress Note Date of Service: 06/29/19 Note: Brief Critical Care Progress: Patient transferred from the floor for 9 second pause with loss of consciousness. She has a complicated medical history, as was admitted for acutely decompensated heart failure and cellulitis. External pacer pads were placed, she was given atropine 0.5mg with good effect and appears to be improved with no further episodes of bradycardia. Her intrinsic rhythm is afib, she was quite tachycardic yesterday which prompted a dose of digoxin (confirmed in [facility], only one dose of 0.5mg was given) and lopressor when she then became bradycardic. She is now having poor urine output, appears SOB and fluid overloaded. Diagnoses: 1. Acutely Decompensated Right Sided Heart Failure 2. Tachy-Lan Syndrome 3. Peripheral Vascular Disease with Chronic Venous Stasis Ulcers 4. Bilateral LE Cellulitis
--- NOTE | 2019-06-29 18:01 | PN ---
Date of Service: 06/29/19 Critical Care Services: Critical Care Consultation Mrs. Lion was seen after transfer from [address] [place] [address]. She is awake with no complaints. She had altered consciousness during her pause event on the floor, however, she has no complaints at this time. She denies chest pain, no acute shortness of breath, no focal weakness, no fevers or headache. Her is at the bedside. Vital Signs: Temp Pulse Resp BP SpO2 FiO2 97.1 F 83 18 116/62 95 06/29/19 15:43 06/29/19 17:45 06/29/19 17:49 06/29/19 17:45 06/29/19 17:45 Physical Exam: General: Pale, NAD HEENT: Normocephalic, atraumatic, non-icteric sclera, moist oral mucosa Neck: soft, supple, no overt JVD (large neck, difficult to assess) CV: Irregular rate and rhythm, no murmurs or rubs Pulm/Chest: Diminished throughout with bilateral course crackles Abdomen/GI: soft, nontender, nondistended, obese +BS noted MSK/Skin: warm, dry, intact, poor pulses, bilateral LE edema, wounds dressed Neuro: A&Ox3, no gross focal deficits Psych: Appropriate affect and mood Fluid Balance (Past 24 Hours): I= O= Net Intake & Output 06/27/19 06/28/19 06/29/19 06/30/19 06:59 06:59 06:59 06:59 Intake Total 0 2386 600 Output Total 2700 0 30 Balance -2700 2386 570 Weight 315 lb 8 oz Intake: IV Fluids 1467 0 ABX - VANCOMYCIN 15 NS (0.9%) 1452 0 IVPB 559 ABX - CEFTRIAXONE 59 ABX - VANCOMYCIN 500 Oral 0 360 600 Output: Urine 2700 0 30 Vasquez 0 Other: Estimated Void Large Medium Date of Last Bowel 0 Movement # Voids 2 Labs: Laboratory Results - last 24 hr 06/28/19 06/29/19 06/29/19 20:10 07:22 08:17 WBC 4.0 RBC 3.98 Hgb 10.4 L Hct 34 L MCV 85 MCH 26 L MCHC 31 RDW 22 H Plt Count 76 L MPV 9.2 Neut % (Auto) 65.4 Lymph % (Auto) 20.0 Hernando % (Auto) 11.2 Eos % (Auto) 3.0 Baso % (Auto) 0.4 Absolute Neuts (auto) 2.6 Absolute Lymphs (auto) 0.8 L Absolute Monos (auto) 0.4 Absolute Eos (auto) 0.1 Absolute Basos (auto) 0.0 Absolute Nucleated RBC 0.1 Nucleated RBC % 1.2 D-Dimer, Quantitative Sodium Potassium Chloride Carbon Dioxide Anion Gap BUN Creatinine Est GFR ( Amer) Est GFR (Non-Af Amer) BUN/Creatinine Ratio Glucose POC Glucose (mg/dL) 168 H 68 L Calcium Magnesium Iron TIBC % Saturation Unsat Iron Binding Transferrin Ferritin Total Bilirubin AST ALT Alkaline Phosphatase B-Natriuretic Peptide Total Protein Albumin Globulin Albumin/Globulin Ratio Vitamin B12 Folate TSH Digoxin 06/29/19 06/29/19 06/29/19 08:17 09:08 12:55 WBC RBC Hgb Hct MCV MCH MCHC RDW Plt Count MPV Neut % (Auto) Lymph % (Auto) Hernando % (Auto) Eos % (Auto) Baso % (Auto) Absolute Neuts (auto) Absolute Lymphs (auto) Absolute Monos (auto) Absolute Eos (auto) Absolute Basos (auto) Absolute Nucleated RBC Nucleated RBC % D-Dimer, Quantitative Sodium 140 141 Potassium 4.1 3.8 Chloride 107 109 Carbon Dioxide 27 27 Anion Gap 6 5 BUN 32 H 30 H Creatinine 1.24 H 1.10 H Est GFR ( Amer) 50.6 58.1 Est GFR (Non-Af Amer) 41.8 48.0 BUN/Creatinine Ratio 25.8 H 27.3 H Glucose 58 L 108 H POC Glucose (mg/dL) 72 Calcium 9.0 8.3 L Magnesium 2.0 Iron 60 TIBC 378 % Saturation 16 Unsat Iron Binding < 363 Transferrin 270 Ferritin 74.2 Total Bilirubin 2.00 H AST 27 ALT 11 Alkaline Phosphatase 215 H B-Natriuretic Peptide Total Protein 6.5 Albumin 2.9 L Globulin 3.6 Albumin/Globulin Ratio 0.8 L Vitamin B12 800 Folate 17.18 TSH 6.08 H Digoxin 0.9 06/29/19 06/29/19 12:55 12:55 WBC RBC Hgb Hct MCV MCH MCHC RDW Plt Count MPV Neut % (Auto) Lymph % (Auto) Hernando % (Auto) Eos % (Auto) Baso % (Auto) Absolute Neuts (auto) Absolute Lymphs (auto) Absolute Monos (auto) Absolute Eos (auto) Absolute Basos (auto) Absolute Nucleated RBC Nucleated RBC % D-Dimer, Quantitative 373 H Sodium Potassium Chloride Carbon Dioxide Anion Gap BUN Creatinine Est GFR ( Amer) Est GFR (Non-Af Amer) BUN/Creatinine Ratio Glucose POC Glucose (mg/dL) Calcium Magnesium Iron TIBC % Saturation Unsat Iron Binding Transferrin Ferritin Total Bilirubin AST ALT Alkaline Phosphatase B-Natriuretic Peptide 382 H Total Protein Albumin Globulin Albumin/Globulin Ratio Vitamin B12 Folate TSH Digoxin Studies: Patient Name: KENNEDI LION Medical Record#: [id number] Ordering Physician: Jaime Groves DO Acct.#: [id number] : 1940 Age: 79 Sex: F Location: EMERGENCY DEPARTMENT Exam Date: 06/27/191538 ADM Status: REG ER Order Information: CHEST AP/PORT Accession Number: [id number] CPT: 07695 HISTORY: SOB COMPARISONS: June 18, 2019 VIEWS: 1: frontal AP view of the chest at 4 9:00 PM FINDINGS: LINES AND TUBES: None. CARDIOMEDIASTINAL SILHOUETTE: The cardiomediastinal silhouette is stable. PLEURA: The costophrenic angles are sharp. No pleural abnormalities are noted. LUNG PARENCHYMA: The lung volumes are low. The lungs are clear accounting for the phase of respiration. There is a diffuse pattern of reticular opacification. ABDOMEN: The upper abdomen is clear. There is no subphrenic gas. BONES AND SOFT TISSUES: No bone or soft tissue abnormalities are noted. IMPRESSION: LOW LUNG VOLUMES WITH DIFFUSE INTERSTITIAL OPACIFICATION SUGGESTIVE OF INTERSTITIAL EDEMA, THOUGH THIS MAY BE ARTIFACTUALLY ACCENTUATED BY THE LOW LUNG VOLUMES. Nutrition: Heart healthy Impression: Patient transferred from the floor for 9 second pause with loss of consciousness. She has a complicated medical history, as was admitted for acutely decompensated heart failure and cellulitis. External pacer pads were placed, she was given atropine 0.5mg with good effect and appears to be improved with no further episodes of bradycardia. Her intrinsic rhythm is afib, she was quite tachycardic yesterday which prompted a dose of digoxin (confirmed in [facility]UL, only one dose of 0.5mg was given) and lopressor when she then became bradycardic. She is now having poor urine output, appears SOB and fluid overloaded. Diagnoses: 1. Acutely Decompensated Right Sided Heart Failure 2. Tachy-Lan Syndrome 3. Peripheral Vascular Disease with Chronic Venous Stasis Ulcers 4. LE Cellulitis, non healing wound/toe amputation 5. Thrombocytopenia Comorbid Conditions: - DM - HTN - Morbid Obesity - Sleep Apnea - RLS - Peripheral Neuropathy Plan: Neuro- - No acute issues, mentating appropriately CV - Atropine PRN bradycardia, although rate is 60s-70s now - Initiating dobutamine drip at 2.5mcg to improve RV function and contractility and hopefully improve urine output - Can utilize esmolol if she becomes tachycardic again, would avoid digoxin in the case of toxicity and avoid BB - Will US bilateral LE given edematous legs - Likely needs a permanent pacemaker placed, can be planned by cardiology when cellulitis is cleared Resp- - On NC and sats are >92% ID - ID following for staph + cellulitis/wounds 2/2 right 5th toe amputation and bunionectomy - Continue vanco as per ID recommendations and follow cultures, cefepime discontinued GI- - Heart healthy CC diet Renal- - strict I/O, replete to keep K>4, Mg>2 - Creat is elevated, diabetic nephropathy? Monitor bun/creat closely Heme - H&H stable, PLTS 76 - Underlying afib, on eliquis, but considering body habitus, eliquis or lovenox would likely not provide appropriate anticoagulation. Could consider heparinizing her with a coumadin [facility] if she has DVTs and high suspicion for PE which would also cover her for afib. We need to also watch platelets which are dropping Endo - Maintain BG<200, insulin protocol ACHS Musculsk - Pressure ulcer prophylaxis while on bedrest Wounds - Care and dressing to right toe amp as per ID/wound care Nutrition - HH/CC DVT prophylaxis: On eliquis, consider heparin GI prophylaxis: PPI Central Line: None Disposition: Patient requires Critical Care/ICU for dobutamine gtt, potential pacing Patient clinical status: Fair/guarded Code Status: Full code Total Critical Care time is 40 minutes
[2019-06-29 21:19] LABS: Urine Appearance Clear; Urine Bilirubin Negative (Negative); Urine Blood Negative (Negative); Urine Color Amber; Urine Glucose Negative (Negative); Urine Ketones Negative (Negative); Urine Nitrite Negative (Negative); Urine Protein Negative (Negative); Urine Urobilinogen Positive (Negative)
[2019-06-29] MEDS: Pramipexole TAB* 0.5 MG PO SCH (22:27)
[2019-06-30] MEDS ORDERED: Vancomycin Trough Check NOTE FOLLOW UP ONE (05:30)
[2019-06-30 05:33] LABS: ABS Eosinophils 0.2 10^3/ul (0-0.6); ABS Lymphocytes 0.6 10^3/ul (1.0-4.8); ABS Monocytes 0.4 10^3/ul (0-0.8); ABS Neutrophils 2.7 10^3/ul (1.5-7.7); Eosinophil % 3.9 %; Hematocrit 31 % (35-47); Hemoglobin 9.9 g/dL (12.0-16.0); Mean Corpuscular HGB Conc 32 g/dL (31-36); Mean Corpuscular Hemoglobin 26 pg (27-31); Mean Corpuscular Volume 82 fL (80-97); Mean Platelet Volume 9.1 fL (7.4-10.4); Nucleated Red Blood Cells % 0.5; Platelet Count 81 10^3/uL (150-450); Red Blood Count 3.75 10^6 /uL (3.70-4.87); Red Cell Distribution Width 22 % (10-15)
[2019-06-30 05:42] LABS: BUN/Creatinine Ratio 32.7 (8-20); Calcium 9.1 mg/dL (8.6-10.3); EGFR Non-African American 51.3 (>60); Magnesium 2.4 mg/dL (1.9-2.7); Potassium 3.8 mmol/L (3.5-5.0)
[2019-06-30 05:47] LABS: Vancomycin Trough 22.7 mcg/mL
[2019-06-30] MEDS: Vancomycin(*) 1,500 MG in NS 0.9% 250 ML* 250 ML IVPB SCH (05:53)
[2019-06-30] MEDS: Insulin LISPRO* 1 UNITS UNIT SUBCUT SCH ×4 (08:58→21:07)
[2019-06-30] MEDS: Insulin GLARGINE(*) 1 UNITS UNIT SUBCUT SCH (08:59)
[2019-06-30] MEDS: Pregabalin 50 mg CAP (*) PO SCH ×3 (08:59→20:45)
[2019-06-30] MEDS: Multivitamins/Minerals TAB PO SCH (08:59)
[2019-06-30] MEDS: Apixaban* 5 MG TAB PO SCH (08:59)
[2019-06-30] MEDS: Cyanocobalamin TAB* 500 MCG PO SCH (08:59)
[2019-06-30] MEDS ORDERED: Potassium Chloride* LIQUID 20 MEQ/15 ML UDC PO ONE (10:13)
[2019-06-30] MEDS: Furosemide IV* 10 MG/ML 2 ML VIAL (20 MG) IV SLOW PU SCH ×2 (10:56→18:14)
--- NOTE | 2019-06-30 11:09 | PN ---
Progress Note - Progress Note Date of Service: 06/30/19 SOAP: Subjective: The pt was seen in the ICU today. She was transfered due to multiple pauses of her heart the longest of which was 9 seconds yesterday. They will continue to monitor her. She has had a bloody nose this morning. She otherwise states that she is feeling well. Has no other complaints. ] Objective: [General: Pt is awake and oriented MSK, RLE: Dressing was changed. Erythema appears to be improving. incisions are present and we are unable to express mild amount of bloody drainage. No purulence is expressed at this time. Redressed with betadine soaked guaze, regular gauze, kerlex and ROSA. She is significantly neuropathic and does not have feeling in the foot at baseline. ] Vital Signs Temp 95.4 F 06/30/19 08:01 Pulse 79 06/30/19 08:01 Resp 23 06/30/19 08:01 BP 129/65 06/30/19 08:01 Pulse Ox 95 06/30/19 08:01 Intake & Output 06/29/19 06/30/19 06/30/19 18:59 06:59 18:59 Intake Total 840 939 Output Total 680 1215 180 Balance 160 -276 -180 Weight 337 lb 4.916 oz Intake: IV Fluids 0 296 ABX - VANCOMYCIN 260 NS (0.9%) 0 36 Medicated IV 143 CC - Dobutamine 143 Oral 840 500 Output: Urine 30 50 Vasquez 0 1165 180 Residual 650 Avsquez 16 Fr Temperature 650 Probe Other: Date of Last Bowel 0 Movement # Voids 0 Assessment: IMPRESSION: Status post right foot 5th toe amputation with some overlying cellulitis. Plan: [Continue with IV abx per ID We will continue with betadine wet to dry dressings daily on the pt over the wound. Erythema is improving...Should there be any worsening we will obtain an MRI ]
[2019-06-30 11:41] LABS: Digoxin 0.8 ng/ml (0.8-2.0)
[2019-06-30] MEDS ORDERED: Insulin GLARGINE(*) 1 UNITS UNIT SUBCUT ONE (14:15)
[2019-06-30] MEDS: Heparin VIAL(*) 5000 UNITS/ML VIAL (FIVE THOUSAND) SUBCUT SCH ×2 (15:54→20:46)
--- NOTE | 2019-06-30 16:59 | PN ---
Progress Note - Progress Note Date of Service: 06/30/19 Note: Progress Note -- Critical Care 24 hour events/significant events: - 1 episode of 6 second pause with no change in mental status - Continue dobutamine, HR appears fairly well controlled - Making good UOP - Had an episode of nose bleed this AM. Cardiology discontinued eliquis ROS: negative except for pertinent positives mentioned above Tele: afib rate controlled Vitals: Vital Signs 06/29/19 06/29/19 06/29/19 16:46 17:00 17:01 Temperature Pulse Rate 64 70 76 Respiratory 22 24 18 Rate Blood Pressure 111/88 119/47 (mmHg) O2 Sat by Pulse 98 95 94 Oximetry 06/29/19 06/29/19 06/29/19 17:17 17:30 17:45 Temperature Pulse Rate 73 83 83 Respiratory 23 24 23 Rate Blood Pressure 111/48 119/57 116/62 (mmHg) O2 Sat by Pulse 97 95 95 Oximetry 06/29/19 06/29/19 06/29/19 17:49 18:00 18:01 Temperature Pulse Rate 81 80 Respiratory 18 24 29 Rate Blood Pressure 110/55 (mmHg) O2 Sat by Pulse 96 96 Oximetry 06/29/19 06/29/19 06/29/19 18:16 18:30 19:00 Temperature Pulse Rate 75 78 72 Respiratory 20 33 18 Rate Blood Pressure 98/58 125/60 (mmHg) O2 Sat by Pulse 96 95 95 Oximetry 06/29/19 06/29/19 06/29/19 19:01 19:15 19:31 Temperature Pulse Rate 66 73 71 Respiratory 22 30 25 Rate Blood Pressure 115/51 114/51 115/46 (mmHg) O2 Sat by Pulse 95 95 96 Oximetry 06/29/19 06/29/19 06/29/19 19:46 20:00 20:16 Temperature 96.1 F Pulse Rate 76 70 78 Respiratory 19 18 27 Rate Blood Pressure 109/54 120/44 93/63 (mmHg) O2 Sat by Pulse 95 95 95 Oximetry 06/29/19 06/29/19 06/29/19 20:30 20:45 21:00 Temperature Pulse Rate 70 80 71 Respiratory 18 24 25 Rate Blood Pressure 110/53 134/51 (mmHg) O2 Sat by Pulse 94 97 99 Oximetry 06/29/19 06/29/19 06/29/19 21:01 21:15 21:31 Temperature Pulse Rate 75 66 72 Respiratory 22 18 20 Rate Blood Pressure 122/56 122/58 119/58 (mmHg) O2 Sat by Pulse 100 95 97 Oximetry 06/29/19 06/29/19 06/29/19 21:45 22:00 22:01 Temperature Pulse Rate 63 76 80 Respiratory 18 17 21 Rate Blood Pressure 113/66 116/58 (mmHg) O2 Sat by Pulse 99 98 97 Oximetry 06/29/19 06/29/19 06/29/19 22:16 22:31 22:45 Temperature Pulse Rate 80 79 78 Respiratory 35 28 29 Rate Blood Pressure 119/60 114/42 123/64 (mmHg) O2 Sat by Pulse 99 98 99 Oximetry 06/29/19 06/29/19 06/29/19 23:00 23:16 23:31 Temperature Pulse Rate 78 79 69 Respiratory 27 17 21 Rate Blood Pressure 125/56 119/49 119/54 (mmHg) O2 Sat by Pulse 98 99 97 Oximetry 06/29/19 06/29/19 06/30/19 23:46 23:55 00:00 Temperature 95.4 F 95.4 F Pulse Rate 75 64 62 Respiratory 22 25 27 Rate Blood Pressure 88/55 (mmHg) O2 Sat by Pulse 97 97 98 Oximetry 06/30/19 06/30/19 06/30/19 00:01 00:16 00:31 Temperature 95.4 F 95.4 F 95.4 F Pulse Rate 65 78 82 Respiratory 24 32 19 Rate Blood Pressure 119/57 94/84 121/62 (mmHg) O2 Sat by Pulse 98 97 96 Oximetry 06/30/19 06/30/19 06/30/19 00:46 01:00 01:01 Temperature 95.4 F 95.2 F 95.2 F Pulse Rate 57 72 72 Respiratory 15 29 22 Rate Blood Pressure 109/49 98/44 (mmHg) O2 Sat by Pulse 95 96 97 Oximetry 06/30/19 06/30/19 06/30/19 01:16 01:31 01:46 Temperature 95.2 F 95.0 F 95.0 F Pulse Rate 64 58 59 Respiratory 20 24 18 Rate Blood Pressure 101/50 108/50 102/59 (mmHg) O2 Sat by Pulse 97 96 96 Oximetry 06/30/19 06/30/19 06/30/19 02:00 02:01 02:16 Temperature 95.0 F 95.0 F 95.0 F Pulse Rate 60 54 56 Respiratory 19 26 20 Rate Blood Pressure 108/49 110/41 (mmHg) O2 Sat by Pulse 96 96 96 Oximetry 06/30/19 06/30/19 06/30/19 02:31 02:46 03:00 Temperature 95.2 F 95.2 F 95.2 F Pulse Rate 65 72 65 Respiratory 22 26 24 Rate Blood Pressure 117/44 113/48 (mmHg) O2 Sat by Pulse 96 95 95 Oximetry 06/30/19 06/30/19 06/30/19 03:01 03:16 03:31 Temperature 95.2 F 95.2 F 95.2 F Pulse Rate 79 74 69 Respiratory 15 22 27 Rate Blood Pressure 101/55 114/52 132/47 (mmHg) O2 Sat by Pulse 96 97 95 Oximetry 06/30/19 06/30/19 06/30/19 03:46 04:00 04:01 Temperature 95.2 F 95.4 F 95.2 F Pulse Rate 78 65 80 Respiratory 24 25 29 Rate Blood Pressure 105/53 111/62 (mmHg) O2 Sat by Pulse 96 96 96 Oximetry 06/30/19 06/30/19 06/30/19 04:16 04:31 04:45 Temperature 95.2 F 95.2 F 95.2 F Pulse Rate 65 78 77 Respiratory 27 23 27 Rate Blood Pressure 114/53 103/51 119/55 (mmHg) O2 Sat by Pulse 96 96 95 Oximetry 06/30/19 06/30/19 06/30/19 05:00 05:01 05:16 Temperature 95.2 F 95.2 F 95.4 F Pulse Rate 75 77 78 Respiratory 17 26 23 Rate Blood Pressure 102/51 116/56 (mmHg) O2 Sat by Pulse 96 96 96 Oximetry 06/30/19 06/30/19 06/30/19 05:31 05:46 06:00 Temperature 95.4 F 95.4 F 95.4 F Pulse Rate 71 80 68 Respiratory 29 28 21 Rate Blood Pressure 116/57 117/62 (mmHg) O2 Sat by Pulse 95 96 96 Oximetry 06/30/19 06/30/19 06/30/19 06:01 06:16 06:31 Temperature 95.4 F 95.4 F 95.4 F Pulse Rate 76 76 77 Respiratory 29 20 31 Rate Blood Pressure 118/57 117/50 109/60 (mmHg) O2 Sat by Pulse 96 97 96 Oximetry 06/30/19 06/30/19 06/30/19 06:46 07:00 07:15 Temperature 95.4 F 95.4 F 95.2 F Pulse Rate 72 81 73 Respiratory 21 14 25 Rate Blood Pressure 100/46 108/49 119/65 (mmHg) O2 Sat by Pulse 92 91 97 Oximetry 06/30/19 06/30/19 06/30/19 07:31 07:46 08:00 Temperature 95.4 F 95.4 F 95.4 F Pulse Rate 76 74 80 Respiratory 22 21 18 Rate Blood Pressure 107/49 109/52 (mmHg) O2 Sat by Pulse 98 97 96 Oximetry 06/30/19 06/30/19 06/30/19 08:01 08:16 08:31 Temperature 95.4 F 95.4 F 95.5 F Pulse Rate 79 78 58 Respiratory 23 18 25 Rate Blood Pressure 129/65 115/61 112/46 (mmHg) O2 Sat by Pulse 95 96 95 Oximetry 06/30/19 06/30/19 06/30/19 08:45 09:00 09:01 Temperature 95.5 F 95.5 F 95.5 F Pulse Rate 74 70 79 Respiratory 29 27 31 Rate Blood Pressure 121/68 113/45 (mmHg) O2 Sat by Pulse 96 96 96 Oximetry 06/30/19 06/30/19 06/30/19 09:31 09:46 10:00 Temperature 95.5 F 95.5 F 95.7 F Pulse Rate 81 70 84 Respiratory 17 28 19 Rate Blood Pressure 131/60 105/64 (mmHg) O2 Sat by Pulse 96 96 90 Oximetry 06/30/19 06/30/19 06/30/19 10:16 10:31 10:45 Temperature 95.7 F 95.9 F 95.9 F Pulse Rate 83 84 116 Respiratory 19 17 19 Rate Blood Pressure 94/76 100/54 129/95 (mmHg) O2 Sat by Pulse 96 96 95 Oximetry 06/30/19 06/30/19 06/30/19 11:00 11:01 11:15 Temperature 96.1 F 96.1 F 96.1 F Pulse Rate 104 102 103 Respiratory 25 27 18 Rate Blood Pressure 111/70 123/62 (mmHg) O2 Sat by Pulse 95 95 96 Oximetry 06/30/19 06/30/19 06/30/19 11:31 11:46 12:00 Temperature 96.3 F 96.1 F 96.1 F Pulse Rate 109 100 82 Respiratory 28 21 15 Rate Blood Pressure 131/67 112/59 (mmHg) O2 Sat by Pulse 95 97 98 Oximetry 06/30/19 06/30/19 06/30/19 12:01 12:16 12:31 Temperature 96.1 F 96.1 F 96.1 F Pulse Rate 83 82 Respiratory 23 17 25 Rate Blood Pressure 117/65 105/47 86/74 (mmHg) O2 Sat by Pulse 94 97 Oximetry 06/30/19 06/30/19 06/30/19 12:46 13:00 13:15 Temperature 96.1 F 96.3 F 96.3 F Pulse Rate 95 82 Respiratory 23 15 20 Rate Blood Pressure 107/68 111/56 138/116 (mmHg) O2 Sat by Pulse 95 95 Oximetry 06/30/19 06/30/19 06/30/19 14:00 14:01 14:17 Temperature 96.3 F 96.3 F 96.3 F Pulse Rate 80 80 80 Respiratory 23 18 23 Rate Blood Pressure 108/63 104/54 (mmHg) O2 Sat by Pulse 97 97 94 Oximetry 06/30/19 06/30/19 06/30/19 14:31 14:47 15:00 Temperature 96.4 F 96.4 F 96.4 F Pulse Rate 84 97 90 Respiratory 23 21 22 Rate Blood Pressure 95/78 81/56 (mmHg) O2 Sat by Pulse 96 95 96 Oximetry Intake and Output Last 24 Hours 06/28/19 06/29/19 06/30/19 07/01/19 06:59 06:59 06:59 06:59 Intake Total 0 2386 1779 Output Total 2700 0 1895 720 Balance -2700 2386 -116 -720 Weight 315 lb 8 oz 337 lb 4.916 oz Intake: IV Fluids 1467 296 ABX - VANCOMYCIN 15 260 NS (0.9%) 1452 36 IVPB 559 ABX - CEFTRIAXONE 59 ABX - VANCOMYCIN 500 Medicated IV 143 CC - Dobutamine 143 Oral 0 360 1340 Output: Urine 2700 0 80 [place] 1165 720 Residual 650 [place] 16 Fr Temperature 650 Probe Other: Estimated Void Large Medium Date of Last Bowel 0 Movement # Voids 2 0 O2: NC Infusions: Dobutamine @ 5 Medications: Acetaminophen (Tylenol Tab*) 650 mg PO Q4H PRN PRN Reason: MILD PAIN or TEMP > 100.4 Last Admin: 06/28/19 07:43 Dose: 650 mg Albuterol (Ventolin 2.5 Mg/3 Ml Neb.Luba*) 2.5 mg INH [id number] AWAKE PRN PRN Reason: sob/wheezing Albuterol (Ventolin Hfa Inhaler*) 2 puff INH Q4H PRN PRN Reason: SHORTNESS OF BREATH Atorvastatin Calcium (Lipitor*) 20 mg PO QPM [facility] Last Admin: 06/29/19 17:40 Dose: 20 mg Cyanocobalamin (Vitamin B12 Tab*) 1,000 mcg PO DAILY [facility] Last Admin: 06/30/19 08:59 Dose: 1,000 mcg Dextrose (D50w Syringe 50 Ml*) 25 gm IV PUSH .FOR FS < 60 - SS PRN PRN Reason: FS < 60 Furosemide (Lasix Iv*) 20 mg IV SLOW PU Q8H [facility] Last Admin: 06/30/19 10:56 Dose: 20 mg Heparin Sodium (Porcine) (Heparin Vial(*)) 5,000 units SUBCUT Q8HR [facility] Last Admin: 06/30/19 15:54 Dose: 5,000 units Dobutamine HCl/Dextrose (Dobutamine 2000 Mcg/Ml Ivpremx*) 500 mg in 250 mls @ 10.733 mls/hr IV .PER PROTOCOL [facility]; Protocol Last Admin: 06/29/19 16:27 Dose: 10.733 mls/hr Insulin Glargine (Lantus(*)) 40 units SUBCUT Q24H [facility] Insulin Human Lispro (Humalog*) 0 units SUBCUT ACHS [facility]; Protocol Last Admin: 06/30/19 15:29 Dose: Not Given Multivitamins/Minerals (Theragran/Minerals Tab*) 1 tab PO DAILY [facility] Last Admin: 06/30/19 08:59 Dose: 1 tab Pharmacy Consult (Vancomycin Per Pharmacy*) 1 note FOLLOW UP .VANC PER PHARMACY EFREN; Protocol Pharmacy Consult (Vancomycin Random Level*) 1 note FOLLOW UP 0600 ONE Stop: 07/01/19 06:01 Pramipexole Dihydrochloride (Mirapex Tab*) 1 mg PO BEDTIME [facility] Last Admin: 06/29/19 22:27 Dose: 1 mg Pregabalin (Lyrica 50 Mg Cap (*)) 50 mg PO TID [facility] Last Admin: 06/30/19 15:54 Dose: 50 mg Physical Exam: Constitutional: awake, alert, no distress, no diaphoresis Head: normocephalic, atraumatic Eyes: no pallor, no icterus ENT: moist mucous membranes Neck: soft, supple, no jvd, no stridor CVS: irregular rhythm, normal rate, no obvious murmur Chest/Resp: bilateral air entry, no rhales, no wheeze, no rhonchi, no acc muscle use Abdomen/GI: obese, soft, nontender, nondistended, BS+ Ext/Msk: warm, pulses+, BLE edema Skin: intact, warm Neuro: awake, alert, orientedx3, moving all extremities, no gross focal deficit Psych: normal affect Labs: Laboratory Results - last 24 hr 06/29/19 06/29/19 06/29/19 11:50 16:18 20:45 WBC RBC Hgb Hct MCV MCH MCHC RDW Plt Count MPV Neut % (Auto) Lymph % (Auto) [place] % (Auto) Eos % (Auto) Baso % (Auto) Absolute Neuts (auto) Absolute Lymphs (auto) Absolute Monos (auto) Absolute Eos (auto) Absolute Basos (auto) Absolute Nucleated RBC Nucleated RBC % Sodium Potassium Chloride Carbon Dioxide Anion Gap BUN Creatinine Est GFR ( Amer) Est GFR (Non-Af Amer) BUN/Creatinine Ratio Glucose POC Glucose (mg/dL) 145 H 174 H Calcium Magnesium Urine Color Anca Urine Appearance Clear Urine pH 5.0 Ur Specific [place] 1.020 Urine Protein Negative Urine Ketones Negative Urine Blood Negative Urine Nitrate Negative Urine Bilirubin Negative Urine Urobilinogen Positive A Ur Leukocyte Esterase Negative Urine Glucose Negative Vancomycin Trough Digoxin 06/29/19 06/30/19 06/30/19 22:24 05:00 05:00 WBC RBC Hgb Hct MCV MCH MCHC RDW Plt Count MPV Neut % (Auto) Lymph % (Auto) [place] % (Auto) Eos % (Auto) Baso % (Auto) Absolute Neuts (auto) Absolute Lymphs (auto) Absolute Monos (auto) Absolute Eos (auto) Absolute Basos (auto) Absolute Nucleated RBC Nucleated RBC % Sodium 138 Potassium 3.8 Chloride 106 Carbon Dioxide 26 Anion Gap 6 BUN 34 H Creatinine 1.04 H Est GFR ( Amer) 62.0 Est GFR (Non-Af Amer) 51.3 BUN/Creatinine Ratio 32.7 H Glucose 115 H POC Glucose (mg/dL) 287 H Calcium 9.1 Magnesium 2.4 Urine Color Urine Appearance Urine pH Ur Specific [place] Urine Protein Urine Ketones Urine Blood Urine Nitrate Urine Bilirubin Urine Urobilinogen Ur Leukocyte Esterase Urine Glucose Vancomycin Trough 22.7 Digoxin 0.8 06/30/19 05:00 WBC 4.0 RBC 3.75 Hgb 9.9 L Hct 31 L MCV 82 MCH 26 L MCHC 32 RDW 22 H Plt Count 81 L MPV 9.1 Neut % (Auto) 68.1 Lymph % (Auto) 16.0 [place] % (Auto) 11.1 Eos % (Auto) 3.9 Baso % (Auto) 0.9 Absolute Neuts (auto) 2.7 Absolute Lymphs (auto) 0.6 L Absolute Monos (auto) 0.4 Absolute Eos (auto) 0.2 Absolute Basos (auto) 0.0 Absolute Nucleated RBC 0.0 Nucleated RBC % 0.5 Sodium Potassium Chloride Carbon Dioxide Anion Gap BUN Creatinine Est GFR ( Amer) Est GFR (Non-Af Amer) BUN/Creatinine Ratio Glucose POC Glucose (mg/dL) Calcium Magnesium Urine Color Urine Appearance Urine pH Ur Specific [place] Urine Protein Urine Ketones Urine Blood Urine Nitrate Urine Bilirubin Urine Urobilinogen Ur Leukocyte Esterase Urine Glucose Vancomycin Trough Digoxin Imaging: Venous dopplers 06/29: negative for DVT EKG 06/29: Afib, qtc 409, HR 53 Echo 06/28: LV mild wall thickness, EF 40-45%, left atrium severely dilated, right atrium mod to severely dilated Assessment: 79F with known medical history of DM, HTN, afib, nonischemic and dilated cardiomyopathy, JOSHUA, morbid obesity, uterine cancer, CHF, and HLD presents on 06/27/19 BLE swelling and increased SOB. On 06/20/19 she had a bunionectomy of the right fifth toe and removal of toe. She was admitted for CHF exacerbation and cellulitis of surgical site. She was transferred from [facility] after experiencing a 9 second cardiac pause with LOC. 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 - Fluid overload/CHF exacerbation: will continue to diurese as tolerated. Started lasix 20mg TID and will increase if BP and HR tolerate this. -Maintain MAP>65 Resp- -Wean Fio2 to keep sat>92% -Aspiration prec, Pulmonary Toilet, IS ID- - Staph aureus MSSA wound right fifth toe amputation/bunionectomy: acute - ID is on board, continue vanco per their request. Appreciate f/up regarding antibiotics GI- -Nutrition: Heart healthy diet -GI prophylaxis: pepcid Renal- - Creatinine slightly elevated but stable. 1.04 appears to be her average for the past 1.5years -strict I/O, replete to keep K>4, Mg>2 -bonilla as indicated Heme- - Thrombocytopenia: chronic. - Plt count seems stable, around 81. - Eliquis was discontinued this AM for nosebleed and possible pacemaker insertion in the near future Endo-Maintain BG<200, insulin protocol as needed Musculsk- pressure ulcer prophylaxis. OOB. Wounds- none Nutrition- heart healthy diet DVT prophylaxis: scds GI prophylaxis: pepcid [place] Catheter: continue Disposition: Patient requires Critical Care/ICU for tachy-andre syndrome, cardiac pauses, fluid overload, symptomatic bradycardia Patient clinical status: stable Code Status:full Total Critical Care time is 30minutes
[2019-06-30] MEDS: Atorvastatin* 20 MG TAB PO SCH (18:14)
[2019-06-30] MEDS: Pramipexole TAB* 0.5 MG PO SCH (20:45)
[2019-07-01] MEDS: Furosemide IV* 10 MG/ML 2 ML VIAL (20 MG) IV SLOW PU SCH ×3 (03:11→21:29)
[2019-07-01] MEDS: Heparin VIAL(*) 5000 UNITS/ML VIAL (FIVE THOUSAND) SUBCUT SCH ×3 (05:02→21:29)
[2019-07-01 05:22] LABS: ABS Eosinophils 0.2 10^3/ul (0-0.6); ABS Lymphocytes 0.6 10^3/ul (1.0-4.8); ABS Monocytes 0.4 10^3/ul (0-0.8); ABS Neutrophils 3.4 10^3/ul (1.5-7.7); Eosinophil % 4.1 %; Hematocrit 31 % (35-47); Hemoglobin 9.8 g/dL (12.0-16.0); Lymphocyte % 12.2 %; Mean Corpuscular HGB Conc 32 g/dL (31-36); Mean Corpuscular Hemoglobin 26 pg (27-31); Mean Corpuscular Volume 82 fL (80-97); Mean Platelet Volume 8.4 fL (7.4-10.4); Platelet Count 88 10^3/uL (150-450); Red Blood Count 3.73 10^6 /uL (3.70-4.87); Red Cell Distribution Width 21 % (10-15); White Blood Count 4.5 10^3/uL (3.5-10.8)
[2019-07-01 05:33] LABS: BUN/Creatinine Ratio 28.6 (8-20); Calcium 8.9 mg/dL (8.6-10.3); EGFR African American 66.4 (>60); EGFR Non-African American 54.9 (>60); Magnesium 2.2 mg/dL (1.9-2.7); Potassium 4.2 mmol/L (3.5-5.0)
[2019-07-01] MEDS ORDERED: Vancomycin Random Level* NOTE FOLLOW UP ONE (06:00)
[2019-07-01] MEDS ORDERED: Docusate CAP* 100 MG PO PRN (07:01)
--- NOTE | 2019-07-01 09:14 | PN ---
Progress Note - Progress Note Date of Service: 07/01/19 SOAP: Subjective: Patient seen at bedside in ICU. Transferred for pauses in HR. Scheduled for pacemaker placement tomorrow. No c/o pain in foot, but grossly neuropathic to b/ l LE. No f/c. SOB improving. Objective: Vital Signs: Temp Pulse Resp BP Pulse Ox 97.3 F 65 18 95/69 98 07/01/19 06:00 07/01/19 06:00 07/01/19 06:00 07/01/19 05:01 07/01/19 06:00 Gen: A&Ox3, NAD at rest RLE: Incision to lateral foot with mild dehiscence. No purulent drainage. Erythema markedly improved from initial consult. No feeling to foot due to neuropathy. 1+ DP pulse. Assessment: Right foot cellulitis, improving Plan: Continue with daily betadine wet-to-dry dressing changes Compression dressing to improve swelling IV abx per ID Heel WB on right foot with post op shoe over dressing Ortho to continue to follow
[2019-07-01] MEDS: Cyanocobalamin TAB* 500 MCG PO SCH (09:50)
[2019-07-01] MEDS: Famotidine TAB* 20 MG PO SCH (09:50)
[2019-07-01] MEDS: Insulin GLARGINE(*) 1 UNITS UNIT SUBCUT SCH (09:50)
[2019-07-01] MEDS: Multivitamins/Minerals TAB PO SCH (09:50)
[2019-07-01] MEDS: Pregabalin 50 mg CAP (*) PO SCH ×3 (09:50→21:30)
[2019-07-01] MEDS: Polyethylene Glycol 3350* 17 GM PACKET PO SCH (09:50)
[2019-07-01] MEDS: Docusate CAP* 100 MG PO SCH ×2 (09:50→21:29)
[2019-07-01] MEDS: Insulin LISPRO* 1 UNITS UNIT SUBCUT SCH ×4 (09:51→21:30)
[2019-07-01] MEDS: Metoprolol Succinate XL TAB* 25 MG PO SCH (10:24)
--- NOTE | 2019-07-01 11:22 | PN ---
Progress Note - Progress Note Date of Service: 07/01/19 Note: Progress Note -- Critical Care 24 hour events/significant events: - tachy into 130's last night persistently so dobutamine gtt was discontinued - 1 episode of 3 second pause after the gtt was off, asymptomatic at the time - Diuresed well ROS: negative except for pertinent positives mentioned above Tele: afib rate controlled Vitals: Vital Signs 06/30/19 06/30/19 06/30/19 11:31 11:46 12:00 Temperature 96.3 F 96.1 F 96.1 F Pulse Rate 109 100 82 Respiratory 28 21 15 Rate Blood Pressure 131/67 112/59 (mmHg) O2 Sat by Pulse 95 97 98 Oximetry 06/30/19 06/30/19 06/30/19 12:01 12:16 12:31 Temperature 96.1 F 96.1 F 96.1 F Pulse Rate 83 82 Respiratory 23 17 25 Rate Blood Pressure 117/65 105/47 86/74 (mmHg) O2 Sat by Pulse 94 97 Oximetry 06/30/19 06/30/19 06/30/19 12:46 13:00 13:15 Temperature 96.1 F 96.3 F 96.3 F Pulse Rate 95 82 Respiratory 23 15 20 Rate Blood Pressure 107/68 111/56 138/116 (mmHg) O2 Sat by Pulse 95 95 Oximetry 06/30/19 06/30/19 06/30/19 14:00 14:01 14:17 Temperature 96.3 F 96.3 F 96.3 F Pulse Rate 80 80 80 Respiratory 23 18 23 Rate Blood Pressure 108/63 104/54 (mmHg) O2 Sat by Pulse 97 97 94 Oximetry 06/30/19 06/30/19 06/30/19 14:31 14:47 15:00 Temperature 96.4 F 96.4 F 96.4 F Pulse Rate 84 97 90 Respiratory 23 21 22 Rate Blood Pressure 95/78 81/56 (mmHg) O2 Sat by Pulse 96 95 96 Oximetry 06/30/19 06/30/19 06/30/19 16:00 16:01 17:00 Temperature 96.6 F 96.6 F 97.0 F Pulse Rate 83 80 85 Respiratory 14 18 22 Rate Blood Pressure 122/57 (mmHg) O2 Sat by Pulse 97 97 95 Oximetry 06/30/19 06/30/19 06/30/19 17:01 18:00 19:00 Temperature 97.0 F 97.2 F 97.3 F Pulse Rate 85 130 85 Respiratory 15 20 14 Rate Blood Pressure 116/57 (mmHg) O2 Sat by Pulse 96 93 96 Oximetry 06/30/19 06/30/19 06/30/19 19:01 20:00 20:01 Temperature 97.3 F 98.6 F 97.7 F Pulse Rate 83 125 139 Respiratory 17 21 21 Rate Blood Pressure 110/62 111/45 (mmHg) O2 Sat by Pulse 95 98 96 Oximetry 06/30/19 06/30/19 06/30/19 21:00 21:21 22:00 Temperature 97.7 F 97.7 F 97.9 F Pulse Rate 152 135 104 Respiratory 18 23 23 Rate Blood Pressure 111/77 108/82 111/73 (mmHg) O2 Sat by Pulse 97 96 95 Oximetry 06/30/19 06/30/19 07/01/19 23:00 23:22 00:00 Temperature 97.7 F 97.7 F 97.7 F Pulse Rate 83 80 83 Respiratory 18 22 19 Rate Blood Pressure 107/78 (mmHg) O2 Sat by Pulse 96 96 97 Oximetry 07/01/19 07/01/19 07/01/19 00:01 01:00 01:01 Temperature 97.7 F 97.5 F 97.5 F Pulse Rate 70 69 64 Respiratory 14 18 14 Rate Blood Pressure 112/63 86/60 (mmHg) O2 Sat by Pulse 95 93 94 Oximetry 07/01/19 07/01/19 07/01/19 02:00 03:00 03:50 Temperature 97.5 F 97.5 F Pulse Rate 63 80 Respiratory 23 15 17 Rate Blood Pressure 104/60 115/67 (mmHg) O2 Sat by Pulse 95 97 Oximetry 07/01/19 07/01/19 07/01/19 04:00 04:01 05:00 Temperature 97.3 F 97.3 F 97.5 F Pulse Rate 69 75 71 Respiratory 17 18 20 Rate Blood Pressure 100/46 (mmHg) O2 Sat by Pulse 93 91 96 Oximetry 07/01/19 07/01/19 07/01/19 05:01 05:29 06:00 Temperature 97.5 F 97.3 F Pulse Rate 75 65 Respiratory 28 21 18 Rate Blood Pressure 95/69 (mmHg) O2 Sat by Pulse 98 98 Oximetry 07/01/19 07/01/19 07/01/19 06:36 07:00 07:01 Temperature 97.3 F 97.5 F 97.5 F Pulse Rate 80 69 81 Respiratory 15 14 16 Rate Blood Pressure 103/60 85/50 (mmHg) O2 Sat by Pulse 97 96 98 Oximetry 07/01/19 07/01/19 07/01/19 08:00 08:01 09:00 Temperature 97.3 F 97.5 F 97.7 F Pulse Rate 78 69 84 Respiratory 15 16 21 Rate Blood Pressure 91/45 (mmHg) O2 Sat by Pulse 96 96 96 Oximetry 07/01/19 07/01/19 10:00 10:01 Temperature 97.7 F 97.7 F Pulse Rate 72 68 Respiratory 26 20 Rate Blood Pressure 101/63 (mmHg) O2 Sat by Pulse 93 93 Oximetry Intake and Output Last 24 Hours 06/29/19 06/30/19 07/01/19 07/02/19 06:59 06:59 06:59 06:59 Intake Total 2386 1779 681 240 Output Total 0 1895 2755 390 Balance 2386 -116 -2074 -150 Weight 337 lb 4.916 oz 332 lb 14.368 oz Intake: IV Fluids 1467 296 ABX - VANCOMYCIN 15 260 NS (0.9%) 1452 36 IVPB 559 ABX - CEFTRIAXONE 59 ABX - VANCOMYCIN 500 Medicated IV 143 236 CC - Dobutamine 143 236 Oral 360 1340 120 240 [place] Amount 325 Output: Urine 0 80 [place] 1165 2755 390 Residual 650 [place] 16 Fr Temperature 650 Probe Other: Estimated Void Medium Date of Last Bowel 0 Movement # Voids 0 O2: NC Infusions: KVO Medications: Acetaminophen (Tylenol Tab*) 650 mg PO Q4H PRN PRN Reason: MILD PAIN or TEMP > 100.4 Last Admin: 06/28/19 07:43 Dose: 650 mg Albuterol (Ventolin 2.5 Mg/3 Ml Neb.Luba*) 2.5 mg INH [id number] AWAKE PRN PRN Reason: sob/wheezing Albuterol (Ventolin Hfa Inhaler*) 2 puff INH Q4H PRN PRN Reason: SHORTNESS OF BREATH Atorvastatin Calcium (Lipitor*) 20 mg PO QPM EFREN Last Admin: 06/30/19 18:14 Dose: 20 mg Bisacodyl (Dulcolax Supp*) 10 mg UT DAILY PRN PRN Reason: CONSTIPATION Cyanocobalamin (Vitamin B12 Tab*) 1,000 mcg PO DAILY [facility] Last Admin: 07/01/19 09:50 Dose: 1,000 mcg Dextrose (D50w Syringe 50 Ml*) 25 gm IV PUSH .FOR FS < 60 - SS PRN PRN Reason: FS < 60 Docusate Sodium (Colace Cap*) 100 mg PO BID [facility] Last Admin: 07/01/19 09:50 Dose: 100 mg Famotidine (Pepcid Tab*) 20 mg PO DAILY [facility] Last Admin: 07/01/19 09:50 Dose: 20 mg Furosemide (Lasix Iv*) 20 mg IV SLOW PU Q8H [facility] Last Admin: 07/01/19 03:11 Dose: 20 mg Heparin Sodium (Porcine) (Heparin Vial(*)) 5,000 units SUBCUT Q8HR [facility] Last Admin: 07/01/19 05:02 Dose: 5,000 units Insulin Glargine (Lantus(*)) 40 units SUBCUT Q24H [facility] Last Admin: 07/01/19 09:50 Dose: 40 units Insulin Human Lispro (Humalog*) 0 units SUBCUT ACHS [facility]; Protocol Last Admin: 07/01/19 09:51 Dose: Not Given Multivitamins/Minerals (Theragran/Minerals Tab*) 1 tab PO DAILY [facility] Last Admin: 07/01/19 09:50 Dose: 1 tab Pharmacy Consult (Vancomycin Per Pharmacy*) 1 note FOLLOW UP .VANC PER PHARMACY [facility]; Protocol Polyethylene Glycol/Electrolytes (Miralax (17 Gm Dose Deandre)) 17 gm PO DAILY [facility] Last Admin: 07/01/19 09:50 Dose: 17 gm Pramipexole Dihydrochloride (Mirapex Tab*) 1 mg PO BEDTIME [facility] Last Admin: 06/30/19 20:45 Dose: 1 mg Pregabalin (Lyrica 50 Mg Cap (*)) 50 mg PO TID [facility] Last Admin: 07/01/19 09:50 Dose: 50 mg Physical Exam: Constitutional: awake, alert, no distress, no diaphoresis Head: normocephalic, atraumatic Eyes: no pallor, no icterus ENT: moist mucous membranes Neck: soft, supple, no jvd, no stridor CVS: irregular rhythm, normal rate, no obvious murmur Chest/Resp: bilateral air entry, diminished in the bases. Inspiratory wheezing throughout. Abdomen/GI: obese, soft, nontender, nondistended, BS+ Ext/Msk: warm, pulses+, BLE edema 3+, reduced sensation which is baseline Skin: intact, warm Neuro: awake, alert, orientedx3, moving all extremities, no gross focal deficit Psych: normal affect Labs: Laboratory Results - last 24 hr 06/29/19 06/30/19 06/30/19 22:24 05:00 18:02 WBC RBC Hgb Hct MCV MCH MCHC RDW Plt Count MPV Neut % (Auto) Lymph % (Auto) [place] % (Auto) Eos % (Auto) Baso % (Auto) Absolute Neuts (auto) Absolute Lymphs (auto) Absolute Monos (auto) Absolute Eos (auto) Absolute Basos (auto) Absolute Nucleated RBC Nucleated RBC % Sodium Potassium Chloride Carbon Dioxide Anion Gap BUN Creatinine Est GFR ( Amer) Est GFR (Non-Af Amer) BUN/Creatinine Ratio Glucose POC Glucose (mg/dL) 287 H 151 H Calcium Magnesium Random Vancomycin Digoxin 0.8 07/01/19 07/01/19 05:00 05:00 WBC 4.5 RBC 3.73 Hgb 9.8 L Hct 31 L MCV 82 MCH 26 L MCHC 32 RDW 21 H Plt Count 88 L MPV 8.4 Neut % (Auto) 74.5 Lymph % (Auto) 12.2 [place] % (Auto) 8.7 Eos % (Auto) 4.1 Baso % (Auto) 0.5 Absolute Neuts (auto) 3.4 Absolute Lymphs (auto) 0.6 L Absolute Monos (auto) 0.4 Absolute Eos (auto) 0.2 Absolute Basos (auto) 0.0 Absolute Nucleated RBC 0.0 Nucleated RBC % 1.0 Sodium 139 Potassium 4.2 Chloride 105 Carbon Dioxide 29 Anion Gap 5 BUN 28 H Creatinine 0.98 H Est GFR ( Amer) 66.4 Est GFR (Non-Af Amer) 54.9 BUN/Creatinine Ratio 28.6 H Glucose 60 L POC Glucose (mg/dL) Calcium 8.9 Magnesium 2.2 Random Vancomycin 15.0 Digoxin Imaging: Venous dopplers 06/29: negative for DVT EKG 06/29: Afib, qtc 409, HR 53 Echo 06/28: LV mild wall thickness, EF 40-45%, left atrium severely dilated, right atrium mod to severely dilated Assessment: 79F with known medical history of DM, HTN, afib, nonischemic and dilated cardiomyopathy, JOSHUA, morbid obesity, uterine cancer, CHF, and HLD presents on 06/27/19 BLE swelling and increased SOB. On 06/20/19 she had a bunionectomy of the right fifth toe and removal of toe. She was admitted for CHF exacerbation and cellulitis of surgical site. She was transferred from [facility] after experiencing a 9 second cardiac pause with LOC. 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 Vitals appear to be stable at this time. - Fluid overload/CHF exacerbation: will continue to diurese as tolerated. Continue lasix 20mg TID. -Maintain MAP>65 Resp- - Having some inspiratory wheezing and seems to have difficulty taking deep breaths. Ordered duonebs scheduled q6hr -Wean Fio2 to keep sat>92% -Aspiration prec, Pulmonary Toilet, IS ID- - Staph aureus MSSA wound right fifth toe amputation/bunionectomy: acute - ID is on board, continue vanco per their request. Appreciate f/up regarding antibiotics GI- -Nutrition: Heart healthy diet -GI prophylaxis: pepcid Renal- - Creatinine slightly elevated but stable. 1.04 appears to be her average for the past 1.5years -strict I/O, replete to keep K>4, Mg>2 -bonilla as indicated Heme- - Thrombocytopenia: chronic. - Plt count seems stable, around 88 - Eliquis was discontinued for nosebleed and possible pacemaker insertion in the near future, possibly tuesday Endo- - DM: chronic. Continue sliding scale. - BG 60 this AM. Patient states she is usually around this in the AM - Continue lantus - Maintain BG<200 Musculsk- pressure ulcer prophylaxis. OOB today Wounds- none Nutrition- heart healthy diet DVT prophylaxis: scds GI prophylaxis: pepcid Bon[place] Catheter: continue Disposition: Patient requires Critical Care/ICU for tachy-andre syndrome, cardiac pauses, fluid overload Patient clinical status: stable Code Status:full Total Critical Care time is 30minutes
[2019-07-01] MEDS ORDERED: Albuterol/Ipratropium NEB.SOL* Albuterol 2.5 MG/Ipratropium 0.5 MG 3 ML INH SCH (12:00)
[2019-07-01] MEDS: Albuterol/Ipratropium NEB.SOL* Albuterol 2.5 MG/Ipratropium 0.5 MG 3 ML INH SCH ×2 (12:39→19:27)
[2019-07-01] MEDS: DOBUTamine 2000 MCG/ML IVPREMX 500 MG/250 ML BAG IV SCH ×2 (14:01→14:18)
[2019-07-01] MEDS ORDERED: DOBUTamine 2000 MCG/ML IVPREMX 500 MG/250 ML BAG IV SCH (14:03)
[2019-07-01] MEDS: Vancomycin(*) 750 MG in NS 0.9% 250 ML* 250 ML IVPB SCH ×2 (14:07→21:42)
[2019-07-01] MEDS: Atorvastatin* 20 MG TAB PO SCH (17:31)
[2019-07-01] MEDS: Pramipexole TAB* 0.5 MG PO SCH (21:30)
[2019-07-02] MEDS: Furosemide IV* 10 MG/ML 2 ML VIAL (20 MG) IV SLOW PU SCH ×2 (03:44→11:26)
[2019-07-02 05:53] LABS: ABS Eosinophils 0.2 10^3/ul (0-0.6); ABS Lymphocytes 0.7 10^3/ul (1.0-4.8); ABS Monocytes 0.8 10^3/ul (0-0.8); ABS Neutrophils 4.4 10^3/ul (1.5-7.7); Hematocrit 30 % (35-47); Hemoglobin 9.7 g/dL (12.0-16.0); Lymphocyte % 11.3 %; Mean Corpuscular HGB Conc 32 g/dL (31-36); Mean Corpuscular Hemoglobin 27 pg (27-31); Mean Corpuscular Volume 82 fL (80-97); Mean Platelet Volume 8.6 fL (7.4-10.4); Nucleated Red Blood Cells % 0.4; Platelet Count 94 10^3/uL (150-450); Red Blood Count 3.68 10^6 /uL (3.70-4.87); Red Cell Distribution Width 21 % (10-15); White Blood Count 6.1 10^3/uL (3.5-10.8)
[2019-07-02] MEDS: Heparin VIAL(*) 5000 UNITS/ML VIAL (FIVE THOUSAND) SUBCUT SCH ×3 (05:57→21:33)
[2019-07-02] MEDS: Vancomycin(*) 750 MG in NS 0.9% 250 ML* 250 ML IVPB SCH ×3 (05:57→19:01)
[2019-07-02 06:11] LABS: BUN/Creatinine Ratio 29.5 (8-20); Calcium 8.8 mg/dL (8.6-10.3); EGFR African American 75.2 (>60); EGFR Non-African American 62.1 (>60); Magnesium 2.1 mg/dL (1.9-2.7); Potassium 4.1 mmol/L (3.5-5.0)
[2019-07-02 07:44] LABS: INR 1.68 (0.82-1.09)
[2019-07-02] MEDS: Insulin LISPRO* 1 UNITS UNIT SUBCUT SCH ×4 (08:05→21:33)
[2019-07-02] MEDS ORDERED: ceFAZolin 2 GM PREMIX in ORs 2 GM/50 ML BAG IVPB ONE (09:23)
[2019-07-02] MEDS ORDERED: ceFAZolin 1 GM/10 ML flush(*) SYRINGE for pocket flush (cardiology) FLUSH ONE (09:23)
[2019-07-02] MEDS: Pregabalin 50 mg CAP (*) PO SCH ×3 (09:26→21:29)
[2019-07-02] MEDS: Famotidine TAB* 20 MG PO SCH ×2 (09:26→10:16)
[2019-07-02] MEDS: Polyethylene Glycol 3350* 17 GM PACKET PO SCH (09:26)
[2019-07-02] MEDS: Multivitamins/Minerals TAB PO SCH (09:26)
[2019-07-02] MEDS: Insulin GLARGINE(*) 1 UNITS UNIT SUBCUT SCH (09:26)
[2019-07-02] MEDS: Docusate CAP* 100 MG PO SCH ×2 (09:26→21:30)
[2019-07-02] MEDS: Cyanocobalamin TAB* 500 MCG PO SCH (09:26)
[2019-07-02] MEDS ORDERED: NS 0.9% 1000 ML** 1,000 ML IV SCH (09:30)
[2019-07-02] MEDS ORDERED: ceFAZolin 2 GM in NS 100 ml - ONCE (Pharmacy Admix) IVPB ONE (10:00)
[2019-07-02] MEDS ORDERED: ceFAZolin VIAL 1 GM in NS *SYRINGE * * 10 ML ONE (10:00)
--- NOTE | 2019-07-02 10:46 | PN ---
Progress Note - Progress Note Date of Service: 07/02/19 SOAP: Subjective: CC: Right foot infection HPI: Ms. Kaufman is a 79 yo female with PMH significant for DM2, peripheral neuropathy , HTN, A fib, cadiomyopathy, JOSHUA, RLS, morbid obesity, uterine cancer, CHF, HLD , chronic venous statsis with venous ulcers on the left leg; who presented to hospital with right foot cellulitis. Denies fever, chills, nausea, vomiting, or diarrhea. Objective: Vital Signs 07/02/19 07/02/19 08:00 08:01 Temperature 99.0 F 99.0 F Pulse Rate 84 88 Respiratory 19 19 Rate Blood Pressure 138/76 (mmHg) O2 Sat by Pulse 93 90 Oximetry Physical Exam: General: NAD, laying in bed Neurological: Alert and Oriented HEENT: Moist MM Cardiovascular: Heart rate irregular. Bilateral LE edema Respiratory: Lung sounds clear Abdominal: Bowel sounds present; ABD soft, non tender and non distended MSK: No tenderness with palpation of the right ankle. Skin: Incision line to the lateral aspect of the right foot, there is some dark dry eschar noted. DSG to left LE with small amount of dried serous drainage. Laboratory Results - last 24 hr 07/01/19 07/02/19 07/02/19 11:34 05:40 05:40 WBC 6.1 RBC 3.68 L Hgb 9.7 L Hct 30 L MCV 82 MCH 27 MCHC 32 RDW 21 H Plt Count 94 L MPV 8.6 Neut % (Auto) 72.4 Lymph % (Auto) 11.3 [place] % (Auto) 12.6 Eos % (Auto) 3.0 Baso % (Auto) 0.7 Absolute Neuts (auto) 4.4 Absolute Lymphs (auto) 0.7 L Absolute Monos (auto) 0.8 Absolute Eos (auto) 0.2 Absolute Basos (auto) 0.0 Absolute Nucleated RBC 0.0 Nucleated RBC % 0.4 Sodium 137 Potassium 4.1 Chloride 103 Carbon Dioxide 28 Anion Gap 6 BUN 26 H Creatinine 0.88 Est GFR ( Amer) 75.2 Est GFR (Non-Af Amer) 62.1 BUN/Creatinine Ratio 29.5 H Glucose 90 POC Glucose (mg/dL) 102 H Calcium 8.8 Magnesium 2.1 Microbiology 06/27/19 23:57 Aerobic Blood Culture - Preliminary Blood Venous No Growth Day 4 Anaerobic Blood Culture - Preliminary No Growth Day 4 06/27/19 23:57 Aerobic Blood Culture - Preliminary Blood Venous No Growth Day 4 Anaerobic Blood Culture - Preliminary No Growth Day 4 06/28/19 12:58 Aerobic Blood Culture - Preliminary No Source Provided No Growth Day 3 Anaerobic Blood Culture - Preliminary No Growth Day 3 06/28/19 12:58 Aerobic Blood Culture - Preliminary No Source Provided No Growth Day 3 Anaerobic Blood Culture - Preliminary No Growth Day 3 06/27/19 03:37 Urine Culture - Final Urine 06/29/19 12:00 Nasal Screen MRSA (PCR) - Final Nasal Mrsa Not Detected Assessment: 1. Right foot cellulitis. S/P right 5th toe amputation on 06/20/19. Improvement in erythema and edema. No growth in blood cultures to date. Afebrile and no leukocytosis. 2. Chronic venous insufficiency. Known venous stasis ulcer to the left lower extremity. 3. DM2 with peripheral neuropathy. 4. Morbid obesity. BMI 52.5 5. CHF. Plan: Continue vancomycin, trough 10-15. Day 5 of ABX.
--- NOTE | 2019-07-02 10:53 | PN ---
Progress Note - Progress Note Date of Service: 07/02/19 SOAP: Subjective: []Pt seen at bedside. She feels well without fever, chills, dizziness, nausea. No R foot pain. Objective: []Gen: A&Ox3, NAD at rest RLE: Incision to lateral foot with mild dehiscence. No purulent drainage. No erythema present. No feeling to foot due to neuropathy. 1+ DP pulse. Assessment: Right foot cellulitis improving, mild wound dehiscence Plan: Continue with daily betadine wet-to-dry dressing changes Compression dressing to improve swelling IV abx per ID Heel WB on right foot with post op shoe over dressing Ortho to continue to follow Vital Signs Temp 99.0 F 07/02/19 08:01 Pulse 88 07/02/19 08:01 Resp 19 07/02/19 08:01 BP 138/76 07/02/19 08:01 Pulse Ox 90 07/02/19 08:01 Intake & Output 07/01/19 07/02/19 07/02/19 18:59 06:59 18:59 Intake Total 1076.6 430 330 Output Total 1365 1095 665 Balance -288.4 -665 -335 Weight 336 lb Intake: IV Fluids 10 330 ABX - VANCOMYCIN 330 NS (0.9%) 10 IVPB 265 250 ABX - VANCOMYCIN 265 250 Medicated IV 11.6 CC - Dobutamine 11.6 Oral 790 180 Output: [place] 1365 1095 665 Other: Date of Last Bowel 07/01/2019 Movement # Bowel Movements 1 Estimated Stool Amount Large Laboratory Last Values WBC 6.1 10^3/uL (3.5-10.8) 07/02/19 05:40 RBC 3.68 10^6 /uL (3.70-4.87) L 07/02/19 05:40 Hgb 9.7 g/dL (12.0-16.0) L 07/02/19 05:40 Hct 30 % (35-47) L 07/02/19 05:40 MCV 82 fL (80-97) 07/02/19 05:40 MCH 27 pg (27-31) 07/02/19 05:40 MCHC 32 g/dL (31-36) 07/02/19 05:40 RDW 21 % (10-15) H 07/02/19 05:40 Plt Count 94 10^3/uL (150-450) L 07/02/19 05:40 MPV 8.6 fL (7.4-10.4) 07/02/19 05:40 Neut % (Auto) 72.4 % 07/02/19 05:40 Lymph % (Auto) 11.3 % 07/02/19 05:40 [place] % (Auto) 12.6 % 07/02/19 05:40 Eos % (Auto) 3.0 % 07/02/19 05:40 Baso % (Auto) 0.7 % 07/02/19 05:40 Absolute Neuts (auto) 4.4 10^3/ul (1.5-7.7) 07/02/19 05:40 Absolute Lymphs (auto) 0.7 10^3/ul (1.0-4.8) L 07/02/19 05:40 Absolute Monos (auto) 0.8 10^3/ul (0-0.8) 07/02/19 05:40 Absolute Eos (auto) 0.2 10^3/ul (0-0.6) 07/02/19 05:40 Absolute Basos (auto) 0.0 10^3/ul (0-0.2) 07/02/19 05:40 Absolute Nucleated RBC 0.0 10^3/ul 07/02/19 05:40 Nucleated RBC % 0.4 07/02/19 05:40 INR (Anticoag Therapy) 1.68 (0.82-1.09) H 07/02/19 07:20 D-Dimer, Quantitative 373 ng/mL (Less Than 230) H 06/29/19 12:55 Sodium 137 mmol/L (135-145) 07/02/19 05:40 Potassium 4.1 mmol/L (3.5-5.0) 07/02/19 05:40 Chloride 103 mmol/L (101-111) 07/02/19 05:40 Carbon Dioxide 28 mmol/L (22-32) 07/02/19 05:40 Anion Gap 6 mmol/L (2-11) 07/02/19 05:40 BUN 26 mg/dL (6-24) H 07/02/19 05:40 Creatinine 0.88 mg/dL (0.51-0.95) 07/02/19 05:40 Est GFR ( Amer) 75.2 (>60) 07/02/19 05:40 Est GFR (Non-Af Amer) 62.1 (>60) 07/02/19 05:40 BUN/Creatinine Ratio 29.5 (8-20) H 07/02/19 05:40 Glucose 90 mg/dL (70-100) 07/02/19 05:40 POC Glucose (mg/dL) 102 mg/dL (70-100) H 07/01/19 11:34 Lactic Acid 1.0 mmol/L (0.5-2.0) 06/28/19 12:58 Calcium 8.8 mg/dL (8.6-10.3) 07/02/19 05:40 Magnesium 2.1 mg/dL (1.9-2.7) 07/02/19 05:40 Iron 60 ug/dL (50-212) 06/29/19 12:55 TIBC 378 mcg/dL (250-450) 06/29/19 12:55 % Saturation 16 % (15-55) 06/29/19 12:55 Unsat Iron Binding < 363 ug/dL 06/29/19 12:55 Transferrin 270 mg/dL (203-362) 06/29/19 12:55 Ferritin 74.2 ng/mL (11-307) 06/29/19 12:55 Total Bilirubin 2.00 mg/dL (0.2-1.0) H 06/29/19 12:55 AST 27 U/L (13-39) 06/29/19 12:55 ALT 11 U/L (7-52) 06/29/19 12:55 Alkaline Phosphatase 215 U/L (34-104) H 06/29/19 12:55 Troponin I 0.02 ng/mL (<0.03) 06/27/19 15:58 C-Reactive Protein 66.41 mg/L (<8.01) H 06/28/19 06:57 B-Natriuretic Peptide 382 pg/mL (<=100) H 06/29/19 12:55 Total Protein 6.5 g/dL (6.4-8.9) 06/29/19 12:55 Albumin 2.9 g/dL (3.2-5.2) L 06/29/19 12:55 Globulin 3.6 g/dL (2-4) 06/29/19 12:55 Albumin/Globulin Ratio 0.8 (1-3) L 06/29/19 12:55 Lipase 84 U/L (11.0-82.0) H 06/27/19 15:58 Vitamin B12 800 pg/mL (180-914) 06/29/19 12:55 Folate 17.18 ng/mL (>3.99) 06/29/19 12:55 TSH 6.08 mcIU/mL (0.34-5.60) H 06/29/19 12:55 Urine Color Anca 06/29/19 20:45 Urine Appearance Clear 06/29/19 20:45 Urine pH 5.0 (5-9) 06/29/19 20:45 Ur Specific [place] 1.020 (1.010-1.030) 06/29/19 20:45 Urine Protein Negative (Negative) 06/29/19 20:45 Urine Ketones Negative (Negative) 06/29/19 20:45 Urine Blood Negative (Negative) 06/29/19 20:45 Urine Nitrate Negative (Negative) 06/29/19 20:45 Urine Bilirubin Negative (Negative) 06/29/19 20:45 Urine Urobilinogen Positive (Negative) A 06/29/19 20:45 Ur Leukocyte Esterase Negative (Negative) 06/29/19 20:45 Urine Glucose Negative (Negative) 06/29/19 20:45 Vancomycin Trough 22.7 mcg/mL 06/30/19 05:00 Random Vancomycin 15.0 mcg/mL 07/01/19 05:00 Digoxin 0.8 ng/ml (0.8-2.0) 06/30/19 05:00 Influenza A (Rapid) Negative (Negative) 06/27/19 22:55 Influenza B (Rapid) Negative (Negative) 06/27/19 22:55
[2019-07-02] MEDS ORDERED: Lidocaine 1% INJ* 10 MG/ML 30 ML SDV ONE (11:54)
[2019-07-02] MEDS ORDERED: Propofol* 10 MG/ML 20 ML BTL ONE (11:57)
[2019-07-02] MEDS ORDERED: Lidocaine 2% PF * 5 ML VIAL ONE (11:57)
[2019-07-02] MEDS ORDERED: Midazolam* 1 MG/ML 2 ML VIAL (2 MG) ONE (11:57)
[2019-07-02] MEDS ORDERED: fentaNYL* 50 MCG/ML 2 ML VIAL (100 MCG VIAL) ONE (11:57)
[2019-07-02] MEDS ORDERED: KETAMINE HCL* 50 MG/ML 10 ML VIAL ONE (11:57)
[2019-07-02] MEDS ORDERED: oxyCODONE/Acetamin 5/325 MG* TAB PO PRN (12:53)
[2019-07-02] MEDS ORDERED: ceFAZolin VIAL(*) 1 GM in NS 0.9% 50 ML* 50 ML IVPB SCH (13:00)
--- NOTE | 2019-07-02 13:47 | PN ---
Progress Note - Progress Note Date of Service: 07/02/19 Note: Progress Note -- Critical Care 24 hour events/significant events: - no issues overnight - NPO for pacemaker today - Patient offers no complaints ROS: negative except for pertinent positives mentioned above Tele: afib rate controlled Vitals: Vital Signs 07/01/19 07/01/19 07/01/19 15:00 15:01 15:13 Temperature 97.9 F 98.1 F 97.9 F Pulse Rate 98 91 82 Respiratory 19 23 15 Rate Blood Pressure 107/54 (mmHg) O2 Sat by Pulse 94 94 89 Oximetry 07/01/19 07/01/19 07/01/19 15:22 15:30 16:00 Temperature 98.1 F 98.1 F Pulse Rate 79 85 Respiratory 19 29 18 Rate Blood Pressure 102/60 102/61 (mmHg) O2 Sat by Pulse 92 93 Oximetry 07/01/19 07/01/19 07/01/19 16:31 17:00 17:01 Temperature 98.2 F 98.2 F 98.4 F Pulse Rate 70 80 85 Respiratory 19 24 19 Rate Blood Pressure 97/62 96/70 (mmHg) O2 Sat by Pulse 92 92 92 Oximetry 07/01/19 07/01/19 07/01/19 17:30 18:00 18:18 Temperature 98.4 F 98.4 F 98.4 F Pulse Rate 82 88 80 Respiratory 25 27 22 Rate Blood Pressure 111/62 96/57 (mmHg) O2 Sat by Pulse 95 92 95 Oximetry 07/01/19 07/01/19 07/01/19 19:00 19:29 19:58 Temperature 98.4 F Pulse Rate 84 80 Respiratory 19 14 22 Rate Blood Pressure 99/61 (mmHg) O2 Sat by Pulse 95 98 Oximetry 07/01/19 07/01/19 07/01/19 20:00 20:01 20:11 Temperature 98.4 F 98.4 F 98.4 F Pulse Rate 84 73 79 Respiratory 20 21 21 Rate Blood Pressure 146/118 (mmHg) O2 Sat by Pulse 92 96 87 Oximetry 07/01/19 07/01/19 07/01/19 20:14 21:00 21:01 Temperature 98.4 F 98.6 F 98.6 F Pulse Rate 85 88 86 Respiratory 18 17 28 Rate Blood Pressure 113/64 125/73 (mmHg) O2 Sat by Pulse 96 94 91 Oximetry 07/01/19 07/01/19 07/01/19 22:00 22:01 22:27 Temperature 98.8 F 98.8 F 98.2 F Pulse Rate 87 86 86 Respiratory 23 24 17 Rate Blood Pressure 140/102 (mmHg) O2 Sat by Pulse 93 97 92 Oximetry 07/01/19 07/01/19 07/01/19 22:28 23:00 23:01 Temperature 98.2 F 98.4 F 98.6 F Pulse Rate 82 67 82 Respiratory 27 23 20 Rate Blood Pressure 130/75 147/87 (mmHg) O2 Sat by Pulse 95 95 92 Oximetry 07/02/19 07/02/19 07/02/19 00:00 00:01 01:00 Temperature 98.6 F 98.8 F 99.0 F Pulse Rate 80 81 86 Respiratory 19 26 22 Rate Blood Pressure 134/92 (mmHg) O2 Sat by Pulse 94 89 87 Oximetry 07/02/19 07/02/19 07/02/19 01:01 02:00 02:01 Temperature 99.0 F 99.1 F 99.1 F Pulse Rate 85 81 85 Respiratory 23 28 19 Rate Blood Pressure 134/107 145/96 (mmHg) O2 Sat by Pulse 92 90 91 Oximetry 07/02/19 07/02/19 07/02/19 03:00 03:01 04:00 Temperature 99.1 F 99.1 F 99.3 F Pulse Rate 86 73 81 Respiratory 23 27 21 Rate Blood Pressure 148/75 (mmHg) O2 Sat by Pulse 92 87 92 Oximetry 07/02/19 07/02/19 07/02/19 04:01 04:37 05:00 Temperature 99.1 F 99.3 F 99.1 F Pulse Rate 91 84 87 Respiratory 19 18 23 Rate Blood Pressure 134/100 126/74 (mmHg) O2 Sat by Pulse 92 92 91 Oximetry 07/02/19 07/02/19 07/02/19 05:01 06:00 06:02 Temperature 99.1 F 99.3 F 99.3 F Pulse Rate 84 88 91 Respiratory 31 20 21 Rate Blood Pressure 136/69 141/79 (mmHg) O2 Sat by Pulse 93 93 95 Oximetry 07/02/19 07/02/19 07/02/19 07:00 07:01 07:12 Temperature 99.1 F 99.1 F 98.7 F Pulse Rate 93 90 Respiratory 17 19 Rate Blood Pressure 133/77 (mmHg) O2 Sat by Pulse 93 89 Oximetry 07/02/19 07/02/19 07/02/19 08:00 08:01 09:00 Temperature 99.0 F 99.0 F 99.1 F Pulse Rate 84 88 97 Respiratory 19 19 20 Rate Blood Pressure 138/76 (mmHg) O2 Sat by Pulse 93 90 93 Oximetry 07/02/19 07/02/19 07/02/19 09:01 10:00 10:01 Temperature 99.1 F 99.1 F 99.1 F Pulse Rate 91 90 103 Respiratory 24 16 18 Rate Blood Pressure 122/95 117/60 (mmHg) O2 Sat by Pulse 92 91 90 Oximetry 07/02/19 07/02/19 07/02/19 11:00 12:00 13:04 Temperature 99.1 F Pulse Rate 85 89 Respiratory 21 Rate Blood Pressure 105/69 113/62 (mmHg) O2 Sat by Pulse 91 100 Oximetry 07/02/19 07/02/19 07/02/19 13:05 13:47 13:57 Temperature 99.0 F 99.0 F Pulse Rate 93 88 82 Respiratory 24 19 Rate Blood Pressure 116/72 105/54 105/54 (mmHg) O2 Sat by Pulse 97 93 90 Oximetry 07/02/19 07/02/19 14:00 14:01 Temperature 99.0 F 99.0 F Pulse Rate 84 84 Respiratory 24 19 Rate Blood Pressure 110/75 (mmHg) O2 Sat by Pulse 93 96 Oximetry Intake and Output Last 24 Hours 06/30/19 07/01/19 07/02/19 07/03/19 06:59 06:59 06:59 06:59 Intake Total 8319 690 5635.6 430 Output Total 1895 2755 2460 985 Balance -116 -2074 -953.4 -555 Weight 337 lb 4.916 oz 332 lb 14.368 oz 336 lb Intake: IV Fluids 296 10 330 ABX - VANCOMYCIN 260 330 NS (0.9%) 36 10 IVPB 515 ABX - VANCOMYCIN 515 Medicated IV 143 236 11.6 CC - Dobutamine 143 236 11.6 Oral 1340 120 970 100 Bonilla Irrigate Amount 325 Output: Urine 80 Bon[place] 1165 2755 2460 985 Residual 650 Bonilla 16 Fr Temperature 650 Probe Other: Date of Last Bowel 0 07/01/2019 Movement # Bowel Movements 1 Estimated Stool Amount Large # Voids 0 O2: RA Infusions: KVO Medications: Acetaminophen (Tylenol Tab*) 650 mg PO Q4H PRN PRN Reason: MILD PAIN or TEMP > 100.4 Last Admin: 06/28/19 07:43 Dose: 650 mg Albuterol (Ventolin 2.5 Mg/3 Ml Neb.Luba*) 2.5 mg INH [id number] AWAKE PRN PRN Reason: sob/wheezing Albuterol (Ventolin Hfa Inhaler*) 2 puff INH Q4H PRN PRN Reason: SHORTNESS OF BREATH Atorvastatin Calcium (Lipitor*) 20 mg PO QPM [facility] Last Admin: 07/01/19 17:31 Dose: 20 mg Bisacodyl (Dulcolax Supp*) 10 mg [place] DAILY PRN PRN Reason: CONSTIPATION Cyanocobalamin (Vitamin B12 Tab*) 1,000 mcg PO DAILY [facility] Last Admin: 07/02/19 09:26 Dose: Not Given Dextrose (D50w Syringe 50 Ml*) 25 gm IV PUSH .FOR FS < 60 - SS PRN PRN Reason: FS < 60 Docusate Sodium (Colace Cap*) 100 mg PO BID [facility] Last Admin: 07/02/19 09:26 Dose: Not Given Famotidine (Pepcid Tab*) 20 mg PO DAILY [facility] Last Admin: 07/02/19 10:16 Dose: 20 mg Furosemide (Lasix Iv*) 20 mg IV SLOW PU Q8H [facility] Last Admin: 07/02/19 11:26 Dose: Not Given Heparin Sodium (Porcine) (Heparin Vial(*)) 5,000 units SUBCUT Q8HR [facility] Last Admin: 07/02/19 05:57 Dose: Not Given Vancomycin HCl 750 mg/ Sodium (Chloride) 250 mls @ 166.667 mls/hr IVPB Q8H [facility] Last Admin: 07/02/19 05:57 Dose: 166.667 mls/hr Sodium Chloride (Ns 0.9% 1000 Ml) 1,000 mls @ 100 mls/hr IV PER RATE [facility] Insulin Glargine (Lantus(*)) 40 units SUBCUT Q24H [facility] Last Admin: 07/02/19 09:26 Dose: Not Given Insulin Human Lispro (Humalog*) 0 units SUBCUT ACHS [facility]; Protocol Last Admin: 07/02/19 11:26 Dose: Not Given Multivitamins/Minerals (Theragran/Minerals Tab*) 1 tab PO DAILY [facility] Last Admin: 07/02/19 09:26 Dose: Not Given Oxycodone/Acetaminophen (Percocet 5/325 Tab*) 1 tab PO Q4H PRN PRN Reason: PAIN - MODERATE Pharmacy Consult (Vancomycin Per Pharmacy*) 1 note FOLLOW UP .VANC PER PHARMACY [facility]; Protocol Polyethylene Glycol/Electrolytes (Miralax (17 Gm Dose Deandre)) 17 gm PO DAILY [facility] Last Admin: 07/02/19 09:26 Dose: Not Given Pramipexole Dihydrochloride (Mirapex Tab*) 1 mg PO BEDTIME [facility] Last Admin: 07/01/19 21:30 Dose: 1 mg Pregabalin (Lyrica 50 Mg Cap (*)) 50 mg PO TID [facility] Last Admin: 07/02/19 09:26 Dose: Not Given Physical Exam: Constitutional: awake, alert, no distress, no diaphoresis Head: normocephalic, atraumatic Eyes: no pallor, no icterus ENT: moist mucous membranes Neck: soft, supple, no jvd, no stridor CVS: irregular rhythm, normal rate, no obvious murmur Chest/Resp: bilateral air entry, diminished in the bases. Abdomen/GI: obese, soft, nontender, nondistended, BS+ Ext/Msk: warm, pulses+, BLE edema 3+, reduced sensation which is baseline Skin: intact, warm Neuro: awake, alert, oriented x3, moving all extremities, no gross focal deficit Psych: normal affect Labs: Laboratory Results - last 24 hr 07/01/19 07/02/19 07/02/19 11:34 05:40 05:40 WBC 6.1 RBC 3.68 L Hgb 9.7 L Hct 30 L MCV 82 MCH 27 MCHC 32 RDW 21 H Plt Count 94 L MPV 8.6 Neut % (Auto) 72.4 Lymph % (Auto) 11.3 [place] % (Auto) 12.6 Eos % (Auto) 3.0 Baso % (Auto) 0.7 Absolute Neuts (auto) 4.4 Absolute Lymphs (auto) 0.7 L Absolute Monos (auto) 0.8 Absolute Eos (auto) 0.2 Absolute Basos (auto) 0.0 Absolute Nucleated RBC 0.0 Nucleated RBC % 0.4 INR (Anticoag Therapy) Sodium 137 Potassium 4.1 Chloride 103 Carbon Dioxide 28 Anion Gap 6 BUN 26 H Creatinine 0.88 Est GFR ( Amer) 75.2 Est GFR (Non-Af Amer) 62.1 BUN/Creatinine Ratio 29.5 H Glucose 90 POC Glucose (mg/dL) 102 H Calcium 8.8 Magnesium 2.1 07/02/19 07:20 WBC RBC Hgb Hct MCV MCH MCHC RDW Plt Count MPV Neut % (Auto) Lymph % (Auto) [place] % (Auto) Eos % (Auto) Baso % (Auto) Absolute Neuts (auto) Absolute Lymphs (auto) Absolute Monos (auto) Absolute Eos (auto) Absolute Basos (auto) Absolute Nucleated RBC Nucleated RBC % INR (Anticoag Therapy) 1.68 H Sodium Potassium Chloride Carbon Dioxide Anion Gap BUN Creatinine Est GFR ( Amer) Est GFR (Non-Af Amer) BUN/Creatinine Ratio Glucose POC Glucose (mg/dL) Calcium Magnesium Imaging: EKG 07/02: paced rhythm Venous dopplers 06/29: negative for DVT EKG 06/29: Afib, qtc 409, HR 53 Echo 06/28: LV mild wall thickness, EF 40-45%, left atrium severely dilated, right atrium mod to severely dilated Assessment: 79F with known medical history of DM, HTN, afib, nonischemic and dilated cardiomyopathy, JOSHUA, morbid obesity, uterine cancer, CHF, and HLD presents on 06/27/19 BLE swelling and increased SOB. On 06/20/19 she had a bunionectomy of the right fifth toe and removal of toe. She was admitted for CHF exacerbation and cellulitis of surgical site. She was transferred from [facility] after experiencing a 9 second cardiac pause with LOC. 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 Received pacemaker today. BP WNL. - Fluid overload/CHF exacerbation: will continue to diurese as tolerated. Continue lasix 20mg TID. -Maintain MAP>65 Resp- - Having some inspiratory wheezing at times. Duonebs could be restarted if needed -Wean Fio2 to keep sat>92% -Aspiration prec, Pulmonary Toilet, IS ID- - Staph aureus MSSA wound right fifth toe amputation/bunionectomy: acute - ID is on board, continue vanco per their request GI- -Nutrition: Heart healthy diet -GI prophylaxis: pepcid Renal- - Creatinine slightly elevated but stable. 1.04 appears to be her average for the past 1.5years -strict I/O, replete to keep K>4, Mg>2 -bonilla as indicated Heme- - Thrombocytopenia: chronic, stable - Eliquis was discontinued for nosebleed and possible pacemaker insertion. Will need to be restarted by cleared by cardiology Endo- - DM: chronic. Continue sliding scale. Held lantus and sliding scale this AM d/ t NPO status - Continue lantus - Maintain BG<200 Musculsk- pressure ulcer prophylaxis. OOB today Wounds- none Nutrition- heart healthy diet DVT prophylaxis: scds GI prophylaxis: pepcid Bonilla Catheter: continue Disposition: Patient requires Critical Care/ICU for tachy-andre syndrome, monitoring after pacer insertion. If patient recovers without issue, can be transferred to floor Patient clinical status: stable Code Status:full Total Critical Care time is 30minutes
[2019-07-02] MEDS ORDERED: Vancomycin Trough Check NOTE FOLLOW UP ONE (14:00)
[2019-07-02] MEDS: Atorvastatin* 20 MG TAB PO SCH (19:01)
[2019-07-02] MEDS: Pramipexole TAB* 0.5 MG PO SCH (21:30)
[2019-07-03] MEDS: Furosemide IV* 10 MG/ML 2 ML VIAL (20 MG) IV SLOW PU SCH ×3 (00:04→10:13)
--- NOTE | 2019-07-03 02:21 | OP ---
DATE OF OPERATION: 07/02/19 - ROOM #443 DATE OF : 42 SURGEON: Prakash Manrique MD ANESTHESIOLOGIST: Johnnie Koenig MD ANESTHESIA: Local anesthesia with conscious sedation. PRE-OP DIAGNOSES: 1. Atrial fibrillation. 2. 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 POST-OP DIAGNOSES: 1. Atrial fibrillation. 2. 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 OPERATIVE PROCEDURE: Single-chamber pacemaker implantation. INDICATIONS: The patient is a 79-year-old female who is admitted to the hospital with respiratory failure, had right ventricular failure, congestive heart failure. While she was in the intensive care unit, she was having episodes of bradycardia and had two 9-second pauses. She has chronic atrial fibrillation. Permanent pacemaker was recommended. ESTIMATED BLOOD LOSS: Nil. COMPLICATIONS: None. DESCRIPTION OF PROCEDURE: The patient was in a fasting state. Informed consent had been obtained prior to the procedure. All labs had been reviewed. The patient was placed supine on the procedure table. Her left deltopectoral area was cleaned and draped in the usual fashion. 1% lidocaine was used for local anesthesia. Under ultrasound guidance, the axillary vein was entered via Seldinger technique and a guidewire was placed. A 4.5-cm incision was made in the pectoral area. Blunt dissection was carried down to the pectoral fascia and a pocket was fashioned for the pacemaker. Over the first guidewire, a 7-Cro[place] sheath introducer was placed, through which a right ventricular lead was advanced to the RV apex. The right ventricular lead is a Medtronic model 5076, serial number [id number]. It had an R-wave sensitivity of 3.6, impedance 762 ohms, threshold 0.5 volts at 0.5 milliseconds. The ventricular lead was sutured to the pectoral fascia. The pocket was flushed with normal saline with antibiotics. The pacemaker was attached to the ventricular lead. The pacemaker is a Medtronic model W3SR01, serial number [id number]. The device was placed in the pocket. Surgical incision was closed. The patient was returned to the intensive care unit in stable condition. [id number]/[facility] #: [id number] [facility]OSPITALGuille
[2019-07-03] MEDS: Heparin VIAL(*) 5000 UNITS/ML VIAL (FIVE THOUSAND) SUBCUT SCH ×3 (05:44→21:18)
[2019-07-03] MEDS: Vancomycin(*) 750 MG in NS 0.9% 250 ML* 250 ML IVPB SCH (05:44)
[2019-07-03 07:05] LABS: ABS Eosinophils 0.1 10^3/ul (0-0.6); ABS Lymphocytes 0.8 10^3/ul (1.0-4.8); ABS Monocytes 0.7 10^3/ul (0-0.8); ABS Neutrophils 4.3 10^3/ul (1.5-7.7); Eosinophil % 2.5 %; Hematocrit 30 % (35-47); Hemoglobin 9.6 g/dL (12.0-16.0); Lymphocyte % 14.1 %; Mean Corpuscular HGB Conc 32 g/dL (31-36); Mean Corpuscular Hemoglobin 26 pg (27-31); Mean Corpuscular Volume 82 fL (80-97); Mean Platelet Volume 8.1 fL (7.4-10.4); Nucleated Red Blood Cells % 0.1; Platelet Count 100 10^3/uL (150-450); Red Cell Distribution Width 22 % (10-15)
[2019-07-03 07:20] LABS: BUN/Creatinine Ratio 29.1 (8-20); Calcium 8.7 mg/dL (8.6-10.3); EGFR African American 77.2 (>60); EGFR Non-African American 63.8 (>60)
[2019-07-03] MEDS: Insulin LISPRO* 1 UNITS UNIT SUBCUT SCH ×4 (09:15→21:26)
[2019-07-03] MEDS: Insulin GLARGINE(*) 1 UNITS UNIT SUBCUT SCH (09:16)
[2019-07-03] MEDS: Polyethylene Glycol 3350* 17 GM PACKET PO SCH (09:17)
[2019-07-03] MEDS: Docusate CAP* 100 MG PO SCH ×2 (09:17→21:18)
[2019-07-03] MEDS: Cyanocobalamin TAB* 500 MCG PO SCH (09:17)
[2019-07-03] MEDS: Famotidine TAB* 20 MG PO SCH (09:17)
[2019-07-03] MEDS: Pregabalin 50 mg CAP (*) PO SCH ×3 (09:17→21:17)
[2019-07-03] MEDS: Multivitamins/Minerals TAB PO SCH (09:17)
--- NOTE | 2019-07-03 09:41 | PN ---
Subjective Date of Service: 07/03/19 - s/p single chamber PPM due to SSS with 9 second pause Interval History: No events last night, patient states her breathing is back to her baseline. Denies dizziness, lightheadedness, palpitations. Denies chest pain, device site pain. Medications Active Medications: Acetaminophen (Tylenol Tab*) 650 mg PO Q4H PRN PRN Reason: MILD PAIN or TEMP > 100.4 Last Admin: 06/28/19 07:43 Dose: 650 mg Albuterol (Ventolin 2.5 Mg/3 Ml Neb.Luba*) 2.5 mg INH [id number] AWAKE PRN PRN Reason: sob/wheezing Albuterol (Ventolin Hfa Inhaler*) 2 puff INH Q4H PRN PRN Reason: SHORTNESS OF BREATH Atorvastatin Calcium (Lipitor*) 20 mg PO QPM [facility] Last Admin: 07/02/19 19:01 Dose: 20 mg Bisacodyl (Dulcolax Supp*) 10 mg NE DAILY PRN PRN Reason: CONSTIPATION Cyanocobalamin (Vitamin B12 Tab*) 1,000 mcg PO DAILY [facility] Last Admin: 07/03/19 09:17 Dose: 1,000 mcg Dextrose (D50w Syringe 50 Ml*) 25 gm IV PUSH .FOR FS < 60 - SS PRN PRN Reason: FS < 60 Docusate Sodium (Colace Cap*) 100 mg PO BID [facility] Last Admin: 07/03/19 09:17 Dose: 100 mg Famotidine (Pepcid Tab*) 20 mg PO DAILY [facility] Last Admin: 07/03/19 09:17 Dose: 20 mg Furosemide (Lasix Iv*) 20 mg IV SLOW PU Q8H [facility] Last Admin: 07/03/19 03:21 Dose: 20 mg Heparin Sodium (Porcine) (Heparin Vial(*)) 5,000 units SUBCUT Q8HR [facility] Last Admin: 07/03/19 05:44 Dose: 5,000 units Vancomycin HCl 750 mg/ Sodium (Chloride) 250 mls @ 166.667 mls/hr IVPB Q12H [facility] Last Admin: 07/03/19 05:44 Dose: 166.667 mls/hr Insulin Glargine (Lantus(*)) 40 units SUBCUT Q24H [facility] Last Admin: 02/11/20 09:16 Dose: 40 units Insulin Human Lispro (Humalog*) 0 units SUBCUT ACHS [facility]; Protocol Last Admin: 07/03/19 09:15 Dose: 1 units Metoprolol Succinate (Toprol Xl Tab*) 25 mg PO DAILY [facility] Multivitamins/Minerals (Theragran/Minerals Tab*) 1 tab PO DAILY [facility] Last Admin: 07/03/19 09:17 Dose: 1 tab Oxycodone/Acetaminophen (Percocet 5/325 Tab*) 1 tab PO Q4H PRN PRN Reason: PAIN - MODERATE Pharmacy Consult (Vancomycin Per Pharmacy*) 1 note FOLLOW UP .VANC PER PHARMACY [facility]; Protocol Pharmacy Profile Note (Vancomycin Trough Check) 1 note FOLLOW UP 0530 ONE Stop: 07/04/19 05:31 Polyethylene Glycol/Electrolytes (Miralax (17 Gm Dose Deandre)) 17 gm PO DAILY [facility] Last Admin: 07/03/19 09:17 Dose: 17 gm Pramipexole Dihydrochloride (Mirapex Tab*) 1 mg PO BEDTIME [facility] Last Admin: 07/02/19 21:30 Dose: 1 mg Pregabalin (Lyrica 50 Mg Cap (*)) 50 mg PO TID [facility] Last Admin: 07/03/19 09:17 Dose: 50 mg Objective Vital Signs: Temp Pulse Resp BP Pulse Ox 97.6 F 92 20 120/58 97 07/03/19 08:00 07/03/19 08:00 07/03/19 09:17 07/03/19 08:15 07/03/19 08:00 Oxygen Devices in Use Now: Nasal Cannula Appearance: Sitting upright in bed,A+O x3, NAD Eyes: No Scleral Icterus, PERRLA Ears/Nose/Mouth/Throat: NL Teeth, Lips, Gums, Clear Oropharnyx, Mucous Membranes Moist Neck: Trachea Midline Respiratory: - - Diminished throughout, clear. Cardiovascular: - - Tachy S1, S2, irregular rate and rhythm. no murmur or gallop /rub Extremities: No Edema, - - left lower leg wrapped in curlex. \\ Skin: - - left anterior device site non tender to palpation, no pocket hematoma. no oozing. edged well approximated with alex. Neurological: Alert and Oriented x 3 Lines/Tubes/Other Access: Clean, Dry and Intact Vasquez, Clean, Dry and Intact Peripheral IV Laboratory Results: 07/03/19 06:44 07/03/19 06:44 INR (Anticoag Therapy) 1.68 (0.82-1.09) H 07/02/19 07:20 Total Bilirubin 2.00 mg/dL (0.2-1.0) H 06/29/19 12:55 AST 27 U/L (13-39) 06/29/19 12:55 ALT 11 U/L (7-52) 06/29/19 12:55 Alkaline Phosphatase 215 U/L (34-104) H 06/29/19 12:55 B-Natriuretic Peptide 382 pg/mL (<=100) H 06/29/19 12:55 Total Protein 6.5 g/dL (6.4-8.9) 06/29/19 12:55 Albumin 2.9 g/dL (3.2-5.2) L 06/29/19 12:55 Globulin 3.6 g/dL (2-4) 06/29/19 12:55 Albumin/Globulin Ratio 0.8 (1-3) L 06/29/19 12:55 TSH 6.08 mcIU/mL (0.34-5.60) H 06/29/19 12:55 06/27/19 15:58 Troponin I 0.02 Laboratory Results - last 24 hr 07/02/19 07/02/19 07/03/19 14:05 21:16 06:44 WBC 6.0 RBC 3.70 Hgb 9.6 L Hct 30 L MCV 82 MCH 26 L MCHC 32 RDW 22 H Plt Count 100 L MPV 8.1 Neut % (Auto) 71.7 Lymph % (Auto) 14.1 [place] % (Auto) 11.1 Eos % (Auto) 2.5 Baso % (Auto) 0.6 Absolute Neuts (auto) 4.3 Absolute Lymphs (auto) 0.8 L Absolute Monos (auto) 0.7 Absolute Eos (auto) 0.1 Absolute Basos (auto) 0.0 Absolute Nucleated RBC 0.0 Nucleated RBC % 0.1 Sodium Potassium Chloride Carbon Dioxide Anion Gap BUN Creatinine Est GFR ( Amer) Est GFR (Non-Af Amer) BUN/Creatinine Ratio Glucose POC Glucose (mg/dL) 209 H Calcium Magnesium Vancomycin Trough 20.0 07/03/19 07/03/19 06:44 07:24 WBC RBC Hgb Hct MCV MCH MCHC RDW Plt Count MPV Neut % (Auto) Lymph % (Auto) [place] % (Auto) Eos % (Auto) Baso % (Auto) Absolute Neuts (auto) Absolute Lymphs (auto) Absolute Monos (auto) Absolute Eos (auto) Absolute Basos (auto) Absolute Nucleated RBC Nucleated RBC % Sodium 137 Potassium 4.0 Chloride 103 Carbon Dioxide 27 Anion Gap 7 BUN 25 H Creatinine 0.86 Est GFR ( Amer) 77.2 Est GFR (Non-Af Amer) 63.8 BUN/Creatinine Ratio 29.1 H Glucose 108 H POC Glucose (mg/dL) 133 H Calcium 8.7 Magnesium 2.0 Vancomycin Trough Diagnostic Imagin07/03/2019 CXR pending. *[facility]* [place] [address] Fax #: [phone] Transthoracic Echocardiogram Patient: Nicole Kaufman : 1940 Study Date: 06/28/2019 Age: 79 Gender: F HR: 117 bpm Height: 65 in /165.1 cm BSA: 2.4 m^2 Weight: 314.3 lb /142.9 kg BMI: 52.4 kg/m^2 *[place] Specialist: * Paula Charles [facility] *Referring Physician: * Cathleen Cross *Reading Physician: * Sonu Sanchez MD Indications: Congestive Heart Failure. History: Atrial fibrillation. Pulmonary hypertension. PMH: Cardiomyopathy. Functional status: Not following treatment plan for sleep apnea. Risk factors: Hypertension. Diabetes mellitus. Morbidly obese. Hypercholesterolemia. Conclusions Summary: - Impressions: The study is unchanged since the study of January 2018. - Left ventricle: The cavity size is mildly dilated. Wall thickness is mildly increased. Systolic function is mildly reduced. The estimated ejection fraction is 40-45%. - Regional wall motion abnormality: Mild hypokinesis of the basal-mid anteroseptal and mid inferoseptal myocardium. - Right ventricle: The cavity size is moderately dilated. Wall thickness is mildly increased. Systolic function is moderately reduced. Systolic pressure is moderately increased. - Ventricular septum: There is diastolic flattening and systolic flattening. - Left atrium: The atrium is severely dilated. - Right atrium: The atrium is moderately to severely dilated. This report is only to be considered final once signed by the Provider(s) as displayed in the "<Electronically Signed by >" field (s). Absence of a signature indicates the report is in a draft status and still needs to be finalized. In the event this document was created by someone other than the signing Provider, the individual initiating the document will be listed in the "Entered by:" or "Dictated by:" aggarwal. EKG Data: 07/03/2019 ECG; Afib rate 91. telemetry; Afib rate 90-110 Assessment/Plan #1 SSS with 9 second ventricular pause. Patient is s/p single chamber PPM implant 07/02/2019; Device site examined. No evidence of pocket hematoma. edges well approximated. May resume Eliquis tonight, of note her BMI is 49.7 thus, DOAC may not be best OAC choice in this patient. Will resume Toprol 25mg/day. She is on IV vanco for RLE cellulitis therefore will not order traditional PO Keflex post PPM implant. Her device interrogation from today was reviewed. RV lead pacing threshold is 0.5V at 0.4ms. She is [employer] 1.7%. Periods of RVR noted thus, bblocker resumed. await this mornings chest xray to r/o pneumothorax. If negative will sign off. She is to follow up next week with me ( Jessica Velasquez NP ) for wound check and staple removal then follow up with primary booking agent Dr. Zapata there after. I have reached out to Dr. Michel's office and spoke with him personally, he is to arrange close follow up with patient. Patient is to wear left arm immobilizer for 6 weeks. She is to not lift left arm above shoulder for 6 weeks or reach behind her. #2 h/o Perm AF; historically on Eliqius and Toprol therapy. Will resume Toprol 25mg/day given periods of RVR. Of note her BMI is 49.7 thus, she is not an ideal candidate for DOAC therapy. Will differ to primary to to discuss placing her on Coumadin. OAC may be resumed tonight post implant. #3 h/o Severe PHTN; appears compensated at this time. managed by Dr. Michel. RVSP on this admits echo was moderate to severely increased. historiclaly on Aldactone therapy. #4 Disposition pending course. Await today's CXR if negative for pneumothorax will sign off. Toprol resumed. Attending: Prakash Manrique
[2019-07-03] MEDS: Metoprolol Succinate XL TAB* 25 MG PO SCH (10:13)
[2019-07-03] MEDS: Acetaminophen TAB* 325 MG PO PRN (10:13)
[2019-07-03] MEDS: Albuterol 2.5 MG/3 ML NEB.SOL* (0.083%) INH PRN (10:43)
--- NOTE | 2019-07-03 11:01 | PN ---
Cardiology Progress Note Date of Service: 07/03/19 spoke with primary assembly stock supervisor Dr. Michel who states in the past patient desired to be on Eliquis and was aware of the theoretical risks. He requested we keep her on Eliquis and in follow up he would address Coumadin again with patient.
[2019-07-03] MEDS ORDERED: Cephalexin CAP* 250 MG PO SCH (14:00)
--- NOTE | 2019-07-03 14:10 | PN ---
Subjective Date of Service: 07/03/19 Interval History: Ms. Kaufman states her "bloating" is better today. She denies abd pain, n/v/d. She states that she feels tired and c/o R knee pain. She c/o generalized weakness. No other complaints today. Family History: Unchanged from Admission Social History: Unchanged from Admission Past Medical History: Unchanged from Admission Objective Active Medications: Acetaminophen (Tylenol Tab*) 650 mg PO Q4H PRN PRN Reason: MILD PAIN or TEMP > 100.4 Last Admin: 07/03/19 10:13 Dose: 650 mg Albuterol (Ventolin 2.5 Mg/3 Ml Neb.Luba*) 2.5 mg INH [id number] AWAKE PRN PRN Reason: sob/wheezing Last Admin: 07/03/19 10:43 Dose: 2.5 mg Albuterol (Ventolin Hfa Inhaler*) 2 puff INH Q4H PRN PRN Reason: SHORTNESS OF BREATH Atorvastatin Calcium (Lipitor*) 20 mg PO QPM [facility] Last Admin: 07/02/19 19:01 Dose: 20 mg Bisacodyl (Dulcolax Supp*) 10 mg MI DAILY PRN PRN Reason: CONSTIPATION Cyanocobalamin (Vitamin B12 Tab*) 1,000 mcg PO DAILY [facility] Last Admin: 07/03/19 09:17 Dose: 1,000 mcg Dextrose (D50w Syringe 50 Ml*) 25 gm IV PUSH .FOR FS < 60 - SS PRN PRN Reason: FS < 60 Docusate Sodium (Colace Cap*) 100 mg PO BID [facility] Last Admin: 07/03/19 09:17 Dose: 100 mg Famotidine (Pepcid Tab*) 20 mg PO DAILY [facility] Last Admin: 07/03/19 09:17 Dose: 20 mg Furosemide (Lasix Iv*) 20 mg IV SLOW PU Q8H [facility] Last Admin: 07/03/19 10:13 Dose: 20 mg Heparin Sodium (Porcine) (Heparin Vial(*)) 5,000 units SUBCUT Q8HR [facility] Last Admin: 07/03/19 13:12 Dose: 5,000 units Vancomycin HCl 750 mg/ Sodium (Chloride) 250 mls @ 166.667 mls/hr IVPB Q12H [facility] Last Admin: 07/03/19 05:44 Dose: 166.667 mls/hr Insulin Glargine (Lantus(*)) 40 units SUBCUT Q24H [facility] Last Admin: 07/03/19 09:16 Dose: 40 units Insulin Human Lispro (Humalog*) 0 units SUBCUT ACHS [facility]; Protocol Last Admin: 07/03/19 11:56 Dose: 4 units Metoprolol Succinate (Toprol Xl Tab*) 25 mg PO DAILY [facility] Last Admin: 07/03/19 10:13 Dose: 25 mg Multivitamins/Minerals (Theragran/Minerals Tab*) 1 tab PO DAILY [facility] Last Admin: 07/03/19 09:17 Dose: 1 tab Oxycodone/Acetaminophen (Percocet 5/325 Tab*) 1 tab PO Q4H PRN PRN Reason: PAIN - MODERATE Pharmacy Consult (Vancomycin Per Pharmacy*) 1 note FOLLOW UP .VANC PER PHARMACY [facility]; Protocol Pharmacy Profile Note (Vancomycin Trough Check) 1 note FOLLOW UP 0530 ONE Stop: 07/04/19 05:31 Polyethylene Glycol/Electrolytes (Miralax (17 Gm Dose Deandre)) 17 gm PO DAILY [facility] Last Admin: 07/03/19 09:17 Dose: 17 gm Pramipexole Dihydrochloride (Mirapex Tab*) 1 mg PO BEDTIME [facility] Last Admin: 07/02/19 21:30 Dose: 1 mg Pregabalin (Lyrica 50 Mg Cap (*)) 50 mg PO TID [facility] Last Admin: 07/03/19 13:12 Dose: 50 mg Vital Signs: Temp Pulse Resp BP Pulse Ox 98.3 F 89 24 108/82 97 07/03/19 11:44 07/03/19 11:44 07/03/19 13:12 07/03/19 11:44 07/03/19 11:44 Oxygen Devices in Use Now: Nasal Cannula Appearance: Ms. Kaufman is an obese older white female who is laying in bed. She appears comfortable and in no acute distress. Eyes: No Scleral Icterus, PERRLA Ears/Nose/Mouth/Throat: NL Teeth, Lips, Gums, Clear Oropharnyx, Mucous Membranes Moist Neck: NL Appearance and Movements; NL JVP, Trachea Midline Respiratory: Symmetrical Chest Expansion and Respiratory Effort, Clear to Auscultation - anteriorly Cardiovascular: NL Sounds; No Murmurs; No JVD, RRR, - - L anterior chest with CDI dressing without surrounding erythema or drainage; 2+ pitting pretibial edema with ROSA wraps in place Abdominal: NL Sounds; No Tenderness; No Distention, No Hepatosplenomegaly Extremities: No Clubbing, Cyanosis, - - LUE in sling; CDI dressing in place to RLE Neurological: Alert and Oriented x 3 Result Diagrams: 07/03/19 06:44 07/03/19 06:44 Additional Lab and Data: Above labs were pulled into the note, when the note was edited prior to signing. See below for labs from day of consultation. Laboratory Tests 06/29/19 06/29/19 08:17 12:55 WBC 4.0 Hgb 10.4 L Hct 34 L Plt Count 76 L Sodium 141 Potassium 3.8 Chloride 109 Carbon Dioxide 27 BUN 30 H Creatinine 1.10 H Glucose 108 H Total Protein 6.5 Albumin 2.9 L Microbiology and Other Data: Microbiology 06/27/19 23:57 Aerobic Blood Culture - Preliminary Blood Venous No Growth Day 1 Anaerobic Blood Culture - Preliminary No Growth Day 1 06/27/19 23:57 Aerobic Blood Culture - Preliminary Blood Venous No Growth Day 1 Anaerobic Blood Culture - Preliminary No Growth Day 1 Diagnostic Imagin. Exam Date: 06/29/19 1517 - VL LOWER EXT VEINS BILATERAL IMPRESSION: No bilateral lower extremity deep vein thrombosis. 2. Exam Date: 05/05/15 - CTA ABD AORTA & RUNOFF IMPRESSION: 1. MILD ATHEROSCLEROTIC CHANGE. NO EVIDENCE FOR HEMODYNAMICALLY SIGNIFICANT STENOSIS. 2. BILATERAL LOWER EXTREMITY VARICOSE VEINS.. 3. Exam Date: 02/19/15 - VL ANK/BRACHIAL INDICES Right: The posterior tibial ankle brachial index is 1.3. The dorsalis pedis ankle brachial index is 1.53. The digital brachial index is 0.83. The posterior tibial waveform is triphasic. The dorsalis pedis waveform is triphasic. Left: The posterior tibial ankle brachial index is 1.19. The dorsalis pedis ankle brachial index is 1.06. The posterior tibial waveform is triphasic. The dorsalis pedis waveform is biphasic. IMPRESSION: 1. INCREASED ANKLE-BRACHIAL INDICES ON THE RIGHT AND TO A LESSER EXTENT ON THE LEFT, CONSISTENT WITH DECREASED COMPLIANCE IN THE SETTING OF ARTERIOSCLEROSIS. 2. 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 Assess/Plan/Problems-Billing Assessment: 79yof PMHx DM II, HTN, AF on AC, systolic heart failure, JOSHUA presents with QUIGLEY, b/l LE edema with suspected heart failure exacerbation. - Patient Problems (1) Osteomyelitis Comment: -h/o RLE MSSA cellulitis, likely with underlying osteo -ortho following -ID following; thank you for recommendations -transition from vanco to cefazolin (2) Acute on chronic systolic heart failure Comment: -pt with HF exacerbation -receiving IV lasix 20 BID -at this time will hold IV lasix in setting of hypotension -some improvement in PE; net total weight loss and negative fluid balance -I/O, daily weights (3) Tachy-andre syndrome Comment: -AF with RVR to bradycardia with up to 9-second pause -patient transfered to ICU, placed on dobutamine; weaned off -PPM placed 07/02 -continue tele (4) Amputation of fifth toe of right foot Comment: -s/p bunionette removal and R 5th toe amputation 06/20 -appears cellulitic, likely with underlying osteo -ID consulted (5) Thrombocytopenia Comment: -improving -continue to monitor (6) Diabetes Comment: -108-230 -continue lantus 40 -continue lispro ss with FS AC (7) Hypertension Comment: -SBP 90-120s -continue metoprolol -lasix 20 BID (8) Hyperlipidemia Comment: -continue atorvastatin (9) JOSHUA (obstructive sleep apnea) Comment: -non-compliant with CPAP (10) DVT prophylaxis Comment: -Jahaira per PCP, who will follow outpatient (11) Full code status Status and Disposition: Observation. Discharge when stable. Critical care time spent: 40 minutes
--- NOTE | 2019-07-03 16:08 | PN ---
Progress Note - Progress Note Date of Service: 07/03/19 SOAP: Subjective: CC: foot wound HPI: 79 year old woman with neuropathy and open wound right lateral foot associated with bunionette, had outpatient cx that grew MSSA 06/18, then amputation 5th toe in [place], [place] end of May. She has had a scab at surgical site with surrounding redness and swelling. She had sinus pauses while here and had a pacemaker placed. She has no foot pain. Objective: Vital Signs Temp 36.2 C 07/03/19 14:51 Pulse 88 07/03/19 14:51 Resp 20 07/03/19 14:51 BP 95/33 07/03/19 14:51 Pulse Ox 97 07/03/19 14:51 Intake & Output 07/02/19 07/03/19 07/03/19 18:59 06:59 18:59 Intake Total 805 240 Output Total 985 650 Balance -180 -410 Weight 298 lb 9.6 oz Intake: IV Fluids 480 ABX - VANCOMYCIN 330 NS (0.9%) 50 Oral 325 240 Output: Vasquez 985 650 Gen:awake, no distress HEENT: no thrush Heart:Regular, no murmur Lungs:CTA BL Abd:+BS NTND soft Skin: no rash MSK: Right 5th lateral forefoot trace erythema, 5th toe absent, eschar Laboratory Results - last 24 hr 06/30/19 06/30/19 06/30/19 07:53 12:42 20:50 WBC RBC Hgb Hct MCV MCH MCHC RDW Plt Count MPV Neut % (Auto) Lymph % (Auto) [place] % (Auto) Eos % (Auto) Baso % (Auto) Absolute Neuts (auto) Absolute Lymphs (auto) Absolute Monos (auto) Absolute Eos (auto) Absolute Basos (auto) Absolute Nucleated RBC Nucleated RBC % Sodium Potassium Chloride Carbon Dioxide Anion Gap BUN Creatinine Est GFR ( Amer) Est GFR (Non-Af Amer) BUN/Creatinine Ratio Glucose POC Glucose (mg/dL) 134 H 155 H 216 H Calcium Magnesium 07/01/19 07/01/19 07/01/19 08:12 16:58 21:01 WBC RBC Hgb Hct MCV MCH MCHC RDW Plt Count MPV Neut % (Auto) Lymph % (Auto) [place] % (Auto) Eos % (Auto) Baso % (Auto) Absolute Neuts (auto) Absolute Lymphs (auto) Absolute Monos (auto) Absolute Eos (auto) Absolute Basos (auto) Absolute Nucleated RBC Nucleated RBC % Sodium Potassium Chloride Carbon Dioxide Anion Gap BUN Creatinine Est GFR ( Amer) Est GFR (Non-Af Amer) BUN/Creatinine Ratio Glucose POC Glucose (mg/dL) 105 H 194 H 238 H Calcium Magnesium 07/02/19 07/02/19 07/02/19 10:45 17:20 21:16 WBC RBC Hgb Hct MCV MCH MCHC RDW Plt Count MPV Neut % (Auto) Lymph % (Auto) [place] % (Auto) Eos % (Auto) Baso % (Auto) Absolute Neuts (auto) Absolute Lymphs (auto) Absolute Monos (auto) Absolute Eos (auto) Absolute Basos (auto) Absolute Nucleated RBC Nucleated RBC % Sodium Potassium Chloride Carbon Dioxide Anion Gap BUN Creatinine Est GFR ( Amer) Est GFR (Non-Af Amer) BUN/Creatinine Ratio Glucose POC Glucose (mg/dL) 99 162 H 209 H Calcium Magnesium 07/03/19 07/03/19 07/03/19 06:44 06:44 07:24 WBC 6.0 RBC 3.70 Hgb 9.6 L Hct 30 L MCV 82 MCH 26 L MCHC 32 RDW 22 H Plt Count 100 L MPV 8.1 Neut % (Auto) 71.7 Lymph % (Auto) 14.1 [place] % (Auto) 11.1 Eos % (Auto) 2.5 Baso % (Auto) 0.6 Absolute Neuts (auto) 4.3 Absolute Lymphs (auto) 0.8 L Absolute Monos (auto) 0.7 Absolute Eos (auto) 0.1 Absolute Basos (auto) 0.0 Absolute Nucleated RBC 0.0 Nucleated RBC % 0.1 Sodium 137 Potassium 4.0 Chloride 103 Carbon Dioxide 27 Anion Gap 7 BUN 25 H Creatinine 0.86 Est GFR ( Amer) 77.2 Est GFR (Non-Af Amer) 63.8 BUN/Creatinine Ratio 29.1 H Glucose 108 H POC Glucose (mg/dL) 133 H Calcium 8.7 Magnesium 2.0 07/03/19 11:00 WBC RBC Hgb Hct MCV MCH MCHC RDW Plt Count MPV Neut % (Auto) Lymph % (Auto) [place] % (Auto) Eos % (Auto) Baso % (Auto) Absolute Neuts (auto) Absolute Lymphs (auto) Absolute Monos (auto) Absolute Eos (auto) Absolute Basos (auto) Absolute Nucleated RBC Nucleated RBC % Sodium Potassium Chloride Carbon Dioxide Anion Gap BUN Creatinine Est GFR ( Amer) Est GFR (Non-Af Amer) BUN/Creatinine Ratio Glucose POC Glucose (mg/dL) 231 H Calcium Magnesium Assessment: 1. Right foot MSSA cellulitis, likely had infection at time of surgery and underlying chronic osteomyelitis 2. morbid obesity 3. T2 diabetes with neuropathy 4. tachy andre syndrome s/p pacemaker placement 5. left lower leg non pressure related chronic wound Plan: 1. change vanco to ancef 1 gm IV Q8hrs, will need long course antibiotics for underlying osteomyelitis; she is considering options for home infusion vs [facility].
[2019-07-03] MEDS: Atorvastatin* 20 MG TAB PO SCH (17:11)
[2019-07-03] MEDS: ceFAZolin 1 GM ADVAN(*) 1 GM in NS 0.9% 50 ML* 50 ML IVPB SCH (17:20)
--- NOTE | 2019-07-03 18:45 | PN ---
Subjective Date of Service: 07/03/19 Interval History: Ms. Kaufman is a 79-year-old female with past medical history significant for DM2 , HTN, a fib, cardiomyopathy, JOSHUA, RLS, morbid obesity, uterine cancer, CHF, HLD , chronic venous stasis, who underwent right fifth toe amputation on 06/20/19. She presented to the hospital with complaints of LE edema and shortness of breath. She admitted for CHF exacerbation. During her stay she developed bradycardia and is now s/p pacemaker placement. She is being treated for a right foot infection. She reports that she has a long history of ulcers on her legs, these are typically treated with unna boots. She follows with a Underwriting Clerk in [place] for her wounds. She presented to the hospital with venous stasis ulcers to her left leg. She recently had surgery on her right foot and has a surgical wound, this is being managed by Orthopedics. Denies fever, chills, nausea, vomiting, or diarrhea. She reports improvement in the edema in her legs. Continues to have wounds to bilateral LEs. Patient seen and examined at bedside. Verbal consent obtained for wound consultation and photographs. Family History: Unchanged from Admission Social History: Unchanged from Admission Past Medical History: Unchanged from Admission Objective Active Medications: Acetaminophen (Tylenol Tab*) 650 mg PO Q4H PRN Reason: MILD PAIN or TEMP > 100.4 Albuterol (Ventolin 2.5 Mg/3 Ml Neb.Luba*) 2.5 mg INH [id number] AWAKE PRN Reason: sob/wheezing Albuterol (Ventolin Hfa Inhaler*) 2 puff INH Q4H PRN Reason: SHORTNESS OF BREATH Atorvastatin Calcium (Lipitor*) 20 mg PO QPM [facility] Bisacodyl (Dulcolax Supp*) 10 mg WI DAILY PRN Reason: CONSTIPATION Cyanocobalamin (Vitamin B12 Tab*) 1,000 mcg PO DAILY [facility] Dextrose (D50w Syringe 50 Ml*) 25 gm IV PUSH PRN Reason: FS < 60 Docusate Sodium (Colace Cap*) 100 mg PO BID [facility] Famotidine (Pepcid Tab*) 20 mg PO DAILY [facility] Furosemide (Lasix Iv*) 20 mg IV SLOW PU 0900,1500 [facility] Heparin Sodium (Porcine) (Heparin Vial(*)) 5,000 units SUBCUT Q8HR [facility] Cefazolin Sodium 1 gm/ Sodium (Chloride) 50 mls @ 200 mls/hr IVPB Q8H [facility] Insulin Glargine (Lantus(*)) 40 units SUBCUT Q24H [facility] Insulin Human Lispro (Humalog*) 0 units SUBCUT ACHS [facility]; Protocol Metoprolol Succinate (Toprol Xl Tab*) 25 mg PO DAILY [facility] Multivitamins/Minerals (Theragran/Minerals Tab*) 1 tab PO DAILY [facility] Oxycodone/Acetaminophen (Percocet 5/325 Tab*) 1 tab PO Q4H PRN Reason: PAIN - MODERATE Polyethylene Glycol/Electrolytes (Miralax (17 Gm Dose Deandre)) 17 gm PO DAILY [facility] Pramipexole Dihydrochloride (Mirapex Tab*) 1 mg PO BEDTIME [facility] Pregabalin (Lyrica 50 Mg Cap (*)) 50 mg PO TID [facility] Vital Signs 07/03/19 14:51 Temperature 97.2 F Pulse Rate 88 Respiratory 20 Rate Blood Pressure 95/33 (mmHg) O2 Sat by Pulse 97 Oximetry Oxygen Devices in Use Now: Nasal Cannula Appearance: NAD, laying in bed Ears/Nose/Mouth/Throat: Mucous Membranes Moist Respiratory: Symmetrical Chest Expansion and Respiratory Effort Extremities: - - Bilateral LE edema. 1+ DP pulse Skin: - - See skin note below Neurological: Alert and Oriented x 3 Nutrition: Taking PO's Result Diagrams: 07/07/19 05:25 07/07/19 05:25 Additional Lab and Data: Above labs were pulled into the note, when the note was edited prior to signing. See below for labs from day of consultation. Laboratory Tests 06/29/19 07/03/19 07/03/19 12:55 06:44 06:44 WBC 6.0 Hgb 9.6 L Hct 30 L Plt Count 100 L Sodium 137 Potassium 4.0 Chloride 103 Carbon Dioxide 27 BUN 25 H Creatinine 0.86 Glucose 108 H Total Protein 6.5 Albumin 2.9 L Diagnostic Imagin. Exam Date: 06/29/19 1517 - VL LOWER EXT VEINS BILATERAL IMPRESSION: No bilateral lower extremity deep vein thrombosis. 2. Exam Date: 05/05/15 - CTA ABD AORTA & RUNOFF IMPRESSION: 1. MILD ATHEROSCLEROTIC CHANGE. NO EVIDENCE FOR HEMODYNAMICALLY SIGNIFICANT STENOSIS. 2. BILATERAL LOWER EXTREMITY VARICOSE VEINS.. 3. Exam Date: 09/30/15 - VL ANK/BRACHIAL INDICES Right: The posterior tibial ankle brachial index is 1.3. The dorsalis pedis ankle brachial index is 1.53. The digital brachial index is 0.83. The posterior tibial waveform is triphasic. The dorsalis pedis waveform is triphasic. Left: The posterior tibial ankle brachial index is 1.19. The dorsalis pedis ankle brachial index is 1.06. The posterior tibial waveform is triphasic. The dorsalis pedis waveform is biphasic. IMPRESSION: 1. INCREASED ANKLE-BRACHIAL INDICES ON THE RIGHT AND TO A LESSER EXTENT ON THE LEFT, CONSISTENT WITH DECREASED COMPLIANCE IN THE SETTING OF ARTERIOSCLEROSIS. 2. 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 Skin Deviation Note - Skin Deviation Findings Left anterior/lateral lower leg - Open area measures 4 cm x 6.5 cm x 0.1 cm. The wound base is 100 % red granulation tissue. The surrounding skin is intact, but is dry and flaky. There is a scant to small amount of serous drainage ( dressing was already changed today). There is no odor. Left posterior lower leg - There are several superficial open areas, total area of clusters measure 5 cm x 6 cm x 0.1 cm. There is scant drainage, the wound bases are 100% red epithelial tissue. There is no odor. The surrounding skin is intact with some dry flaky skin. Wound Problem/Plan Assessment: Ms. Kaufman is a 79-year-old female with past medical history significant for DM2 , HTN, a fib, cardiomyopathy, JOSHUA, RLS, morbid obesity, uterine cancer, CHF, HLD , chronic venous stasis, who underwent right fifth toe amputation on 06/20/19. She presented to the hospital with complaints of LE edema and shortness of breath. She admitted for CHF exacerbation. During her stay she developed bradycardia and is now s/p pacemaker placement. She presented to the hospital with venous stasis ulcers to her left leg and a surgical site to the right lateral foot. 1. Left lower leg venous stasis ulcer. Recommend washing the leg with soap and water. Apply calcium alginate to areas with moderate amount of drainage, and non -adherent dressing (i.e. Telfa) to the areas with scant drainage, and rolled gauze and change every 3 days or as needed for drainage. If there is a significant amount of drainage, change DSG every other day or daily. If the dressing is sticking to the wound, apply oil emulsion to the wound followed by calcium alginate and change every 3 days. Keep legs elevated. Refer to Wound Center or back to her Underwriting Clerk that typically manages her outpatient. Will add a prealbumin to the last labs. 2. S/P right 5th toe amputation. Presented with cellulitis and possible underlying chronic osteomyelitis. Management per Orthopedics. On IV ABX per ID. 3. DM2. No recent HgA1C in the EMR. Consider checking a HgA1C. Maintain glycemic control to allow for wound healing. 4. Morbid Obesity. BMI 55.9. 5. Concern for malnutrition. Protein is 6.5 and albumin is 2.9. Will add a prealbumin to the last labs. 6. Nutrition. Recommend meeting nutrition requirements to assist with wound healing (Protein 1.2-1.5 grams/kg per day and Calories 30-35 kcal/kg per day). Heart Healthy Diet. 7. Code Status. Full Code Status. 8. Disposition. Inpatient, disposition per primary medicine team. TIME SPENT: Time for this wound consultation followup was 20 minutes and 10 minutes was spent with the patient discussing recent events; removing the old dressing; assessing, measuring, and photographing the wound; reapplying a new dressing. Is Patient a Wound Clinic Patient: No Attending: Kia Hernadez
[2019-07-03] MEDS: Pramipexole TAB* 0.5 MG PO SCH (21:17)
[2019-07-04] MEDS ORDERED: Adenosine* 3 MG/ML VIAL IV PUSH ONE ×2 (00:28→01:00)
[2019-07-04] MEDS ORDERED: Digoxin IV* 0.5 MG/2 ML AMP (0.25 MG/ML) ONE (00:47)
[2019-07-04] MEDS ORDERED: Digoxin IV* 0.5 MG/2 ML AMP (0.25 MG/ML) IV SLOW PU ONE (01:00)
[2019-07-04] MEDS: Diltiazem IV push/loading dose 5 MG/ML 5 ML vial (25 mg) IV SLOW PU ONE (01:10)
[2019-07-04] MEDS ORDERED: Diltiazem IV push/loading dose 5 MG/ML 5 ML vial (25 mg) ONE (01:54)
[2019-07-04] MEDS: ceFAZolin 1 GM ADVAN(*) 1 GM in NS 0.9% 50 ML* 50 ML IVPB SCH ×3 (01:59→17:37)
[2019-07-04] MEDS ORDERED: Diltiazem IV push/loading dose 5 MG/ML 5 ML vial (25 mg) IV SLOW PU ONE ×2 (02:00→02:03)
--- NOTE | 2019-07-04 02:02 | PN ---
Hospitalist Progress Note Date of Service: 07/04/19 Nurse called to evaluate patient as she was tachycardic on monitor to 180s. Repeat EKG appears to be SVT so initially attempted adenosine but upon closer inspection of rhythm she is in A. Fib with RVR. Rest of the vitals initially showed low BP and long with last ECHO showed EF 40- 45% based on this gave digoxin 0.5mg IV and transferred to ICU. While in ICU the BP improved to systolic of 160 and heart rate improved minimally to 140s and throughout this time patient was feeling dizzy as if she was falling. At this time gave a dose of cardizem 10mg after which both her symptoms of dizziness and tachycardia completely resolved. However was back in A. Fib w/RVR to 140s with in 40minutes. Another dose of cardizem 10mg given and a cardizem drip was started. Add digoxin level for AM. Follow up with cardiology in AM.
[2019-07-04] MEDS ORDERED: LORazepam INJ* 2 MG/ML 1 ML VIAL ONE ×2 (02:26→16:07)
[2019-07-04] MEDS ORDERED: Lorazepam PYXIS KEY ONE ×3 (02:26→16:06)
[2019-07-04] MEDS ORDERED: Diltiazem IV BAG* D5W Premix 125 MG/125 ML BAG IV SCH (03:00)
[2019-07-04] MEDS ORDERED: LORazepam INJ* 2 MG/ML 1 ML VIAL IV PUSH ONE (03:00)
[2019-07-04] MEDS ORDERED: Vancomycin Trough Check NOTE FOLLOW UP ONE (05:30)
[2019-07-04] MEDS: Heparin VIAL(*) 5000 UNITS/ML VIAL (FIVE THOUSAND) SUBCUT SCH (06:15)
[2019-07-04] MEDS: Insulin LISPRO* 1 UNITS UNIT SUBCUT SCH ×4 (08:47→23:32)
[2019-07-04] MEDS: Metoprolol Succinate XL TAB* 25 MG PO SCH (09:16)
[2019-07-04] MEDS: Famotidine TAB* 20 MG PO SCH (09:17)
[2019-07-04] MEDS: Pregabalin 50 mg CAP (*) PO SCH ×3 (09:17→23:33)
[2019-07-04] MEDS: Cyanocobalamin TAB* 500 MCG PO SCH (09:18)
[2019-07-04] MEDS: Docusate CAP* 100 MG PO SCH ×2 (09:19→23:32)
[2019-07-04] MEDS: Multivitamins/Minerals TAB PO SCH (09:19)
[2019-07-04] MEDS: Furosemide IV* 10 MG/ML 2 ML VIAL (20 MG) IV SLOW PU SCH ×2 (09:20→16:05)
[2019-07-04] MEDS: Polyethylene Glycol 3350* 17 GM PACKET PO SCH (09:20)
[2019-07-04] MEDS: Insulin GLARGINE(*) 1 UNITS UNIT SUBCUT SCH (09:20)
--- NOTE | 2019-07-04 09:45 | PN ---
Progress Note - Progress Note Date of Service: 07/04/19 SOAP: Subjective: CC: Right foot infection HPI: Ms. Kaufman is a 79 yo female with PMH significant for DM2, peripheral neuropathy , HTN, A fib, cadiomyopathy, JOSHUA, RLS, morbid obesity, uterine cancer, CHF, HLD , chronic venous statsis with venous ulcers on the left leg; who presented to hospital with right foot cellulitis. Denies fever, chills, nausea, vomiting, or diarrhea. She was transferred back to the ICU overnight after going into A fib with RVR. Objective: Vital Signs 07/04/19 07/04/19 07:48 08:00 Temperature 99.3 F 99.3 F Pulse Rate 67 72 Respiratory 28 21 Rate Blood Pressure 119/53 116/64 (mmHg) O2 Sat by Pulse 96 96 Oximetry Physical Exam: General: NAD, laying in bed Neurological: Alert and Oriented HEENT: Moist MM Cardiovascular: Heart rate irregular. Bilateral LE edema Respiratory: Lung sounds clear Abdominal: Bowel sounds present; ABD soft, non tender and non distended MSK: No tenderness with palpation of the right ankle Skin: DSG to bilateral LE, no surrounding erythema Laboratory Results - last 24 hr 07/02/19 07/02/19 07/03/19 10:45 17:20 06:44 Sodium 137 Potassium 4.0 Chloride 103 Carbon Dioxide 27 Anion Gap 7 BUN 25 H Creatinine 0.86 Est GFR ( Amer) 77.2 Est GFR (Non-Af Amer) 63.8 BUN/Creatinine Ratio 29.1 H Glucose 108 H POC Glucose (mg/dL) 99 162 H Calcium 8.7 Magnesium 2.0 Prealbumin 7 L Microbiology 06/28/19 12:58 Aerobic Blood Culture - Final No Source Provided No Growth Day 5 Anaerobic Blood Culture - Final No Growth Day 5 06/28/19 12:58 Aerobic Blood Culture - Final No Source Provided No Growth Day 5 Anaerobic Blood Culture - Final No Growth Day 5 06/27/19 23:57 Aerobic Blood Culture - Final Blood Venous No Growth Day 5 Anaerobic Blood Culture - Final No Growth Day 5 06/27/19 23:57 Aerobic Blood Culture - Final Blood Venous No Growth Day 5 Anaerobic Blood Culture - Final No Growth Day 5 06/27/19 03:37 Urine Culture - Final Urine 06/29/19 12:00 Nasal Screen MRSA (PCR) - Final Nasal Mrsa Not Detected Assessment: 1. Right foot cellulitis, and underlying chronic osteomyelitis. Wound culture from 06/18/19 with staph aureus. S/P right 5th toe amputation on 06/20/19 for infected bunion. Continued improvement in edema, and erythema resolved. No growth in blood cultures to date. Outpatient would culture with . Afebrile and no leukocytosis. 2. Chronic venous insufficiency. Known venous stasis ulcer to the left lower extremity. 3. DM2 with peripheral neuropathy. 4. Morbid obesity. BMI 52.5 5. Tachy-andre syndrome. S/P pacemaker placement. Plan: Continue Ancef 1 gm IV Q8 hours, day 7 of ABX. Will need a prolonged course of IV ABX in the setting of underlying osteomyelitis. Plan for home infusions vs [facility].
[2019-07-04 10:07] LABS: C Reactive Protein 105.02 mg/L (<8.01)
[2019-07-04] MEDS: Albuterol 2.5 MG/3 ML NEB.SOL* (0.083%) INH PRN (10:37)
--- NOTE | 2019-07-04 11:30 | PN ---
Date of Service: 07/04/19 Critical Care Services: Patient seen and examined. States her breathing feels "alright" today and denies acute SOB, but does appear to have some quick and shallow respirations this morning and drop in UOP. Her heart rate is controlled and she is off the diltiazem drip since 6 AM with no further episodes of RVR. She denies chest pain , no palpitations, no fever or chills. No leg pain, no further constitutional complaints. Vital Signs: Temp Pulse Resp BP SpO2 FiO2 98.8 F 73 18 123/63 97 07/04/19 10:01 07/04/19 10:52 07/04/19 10:52 07/04/19 10:01 07/04/19 10:52 Physical Exam: General: Alert, NAD HEENT: Normocephalic, atraumatic, non-icteric sclera, moist oral mucosa Neck: soft, supple, no JVD CV: Irregular rate and rhythm, no murmurs or rubs Pulm/Chest: Good bilateral air entry, clear at the apices, rales at bases, bilateral wheeze Abdomen/GI: soft, nontender, nondistended, +BS noted, obese MSK/Skin: warm, dry, intact, +2 pulses+, bilateral LE edema with discoloration, wounds dressed Neuro: A&Ox3, no gross focal deficits Psych: Appropriate affect and mood Fluid Balance (Past 24 Hours): Intake & Output 07/02/19 07/03/19 07/04/19 07/05/19 06:59 06:59 06:59 06:59 Intake Total 1506.6 805 287 480 Output Total 2460 985 1205 90 Balance -953.4 -180 -918 390 Weight 336 lb 298 lb 9.6 oz 319 lb 4.8 oz Intake: IV Fluids 10 480 ABX - VANCOMYCIN 330 NS (0.9%) 10 50 IVPB 515 47 ABX - VANCOMYCIN 515 NS (0.9%) 47 Medicated IV 11.6 CC - Dobutamine 11.6 Oral 970 325 240 480 Output: Vasquez 2460 985 1205 90 Other: Date of Last Bowel 07/01/2019 unknown Movement # Bowel Movements 1 Estimated Stool Amount Large Labs: Laboratory Results - last 24 hr 07/03/19 07/03/19 07/03/19 06:44 16:09 21:11 Sodium 137 Potassium 4.0 Chloride 103 Carbon Dioxide 27 Anion Gap 7 BUN 25 H Creatinine 0.86 Est GFR ( Amer) 77.2 Est GFR (Non-Af Amer) 63.8 BUN/Creatinine Ratio 29.1 H Glucose 108 H POC Glucose (mg/dL) 133 H 203 H Calcium 8.7 Magnesium 2.0 C-Reactive Protein 105.02 H Prealbumin 7 L Studies: EKG 07/04: afib with RVR, rate 158, current tele paced with underlaying afib rate 70's Venous dopplers 06/29: negative for DVT Echo 06/28: LV mild wall thickness, EF 40-45%, left atrium severely dilated, right atrium mod to severely dilated Nutrition: Heart healthy Impression: This is a 79 y/o female with known medical history of DM, HTN, afib, nonischemic and dilated cardiomyopathy, JOSHUA, morbid obesity, uterine cancer, CHF , and HLD presents on 06/27/19 BLE swelling and increased SOB. On 06/20/19 she had a bunionectomy of the right fifth toe and removal of toe. She was admitted for CHF exacerbation and cellulitis of surgical site. She was transferred from [facility] after experiencing a 9 second cardiac pause with altered mental status, and tachy-andre syndrome. Course is now further complicated by an episode of afib with RVR overnight: Diagnoses: - Acutely decompensated right sided heart failure - Tachy-andre syndrome, s/p PM insertion - PVD with chronic venous stasis ulcers and toe amputation with bunionectomy - Thrombocytopenia - Afib with RVR Plan: Neuro - No active issues CV - RVR now controlled and off diltiazem drip, will defer to cardiology on uptitration of metoprolol vs adding PO diltiazem - Continue diuresis wtih lasix IV 20mg BID, UOP with slight drop off, continue to monitor with lasix on board - BP stable - Fluid negative (-918) today Resp- - Continue duonebs with diuresis - O2 PRN, keep sats >92% - Post PM insertion CXR appears to have increased pulmonary edema, continue diuresis ID- - Staph aureus MSSA wound right fifth toe amputation/bunionectomy with active cellulitis, possible osteo - Continue cefazolin (transitioned off vanco) as per ID recommendations GI- - Heart healthy diet - Stress dose pepcid Renal- - CKD at baseline, monitor while diuresing - strict I/O, replete to keep K>4, Mg>2 - Fluid negative (-918) today Heme- - PLTS low, chronic, no active bleeding - Eliquis was discontinued for nosebleed and PM insertion, per cardiology notes , will need to be restarted and first line choice for anticoagulation Endo- - Continue lispro sliding scale - Continue lantus, glucose well controlled MSK/Skin - T&P Q2H while in bed, pressure ulcer prophylaxis - OOB to chair, PT/OT Wounds - Care per ID/wound care DVT prophylaxis - Eliquis GI prophylaxis - Pepcid Vasquez Catheter - DC today Disposition: Transfer back to telemetry floor. Patient clinical status: Stable Code Status - Full code Total Critical Care time is 40 minutes
[2019-07-04] MEDS ORDERED: Diltiazem TAB* 60 MG PO ONE ×3 (12:05→20:00)
--- NOTE | 2019-07-04 12:22 | PN ---
<Jesisca Velasquez - Last Filed: 07/04/19 12:25> Subjective Date of Service: 07/04/19 - SSS 9 second pause Interval History: Patient went into AF with RVR ( 170's) last night. Was given IV Dig and IV Cardizem. Currently off of IV Cardizem. SBP 99, patient denies dizziness, lightheadedness. Adds breathing improved. She was given IV Lasix this morning. Medications Active Medications: Acetaminophen (Tylenol Tab*) 650 mg PO Q4H PRN PRN Reason: MILD PAIN or TEMP > 100.4 Last Admin: 07/03/19 10:13 Dose: 650 mg Albuterol (Ventolin 2.5 Mg/3 Ml Neb.Luba*) 2.5 mg INH [id number] AWAKE PRN PRN Reason: sob/wheezing Last Admin: 07/04/19 10:37 Dose: 2.5 mg Albuterol (Ventolin Hfa Inhaler*) 2 puff INH Q4H PRN PRN Reason: SHORTNESS OF BREATH Atorvastatin Calcium (Lipitor*) 20 mg PO QPM [facility] Last Admin: 07/03/19 17:11 Dose: 20 mg Bisacodyl (Dulcolax Supp*) 10 mg MA DAILY PRN PRN Reason: CONSTIPATION Cyanocobalamin (Vitamin B12 Tab*) 1,000 mcg PO DAILY [facility] Last Admin: 07/04/19 09:18 Dose: 1,000 mcg Dextrose (D50w Syringe 50 Ml*) 25 gm IV PUSH .FOR FS < 60 - SS PRN PRN Reason: FS < 60 Diltiazem HCl (Cardizem Cd Cap*) 120 mg PO DAILY [facility] Diltiazem HCl (Cardizem Tab*) 60 mg PO ONCE ONE Stop: 07/04/19 20:01 Docusate Sodium (Colace Cap*) 100 mg PO BID [facility] Last Admin: 07/04/19 09:19 Dose: 100 mg Famotidine (Pepcid Tab*) 20 mg PO DAILY [facility] Last Admin: 07/04/19 09:17 Dose: 20 mg Furosemide (Lasix Iv*) 20 mg IV SLOW PU 0900,1500 [facility] Last Admin: 07/04/19 09:20 Dose: 20 mg Heparin Sodium (Porcine) (Heparin Vial(*)) 5,000 units SUBCUT Q8HR [facility] Last Admin: 07/04/19 06:15 Dose: 5,000 units Cefazolin Sodium 1 gm/ Sodium (Chloride) 50 mls @ 200 mls/hr IVPB Q8H [facility] Last Admin: 07/04/19 10:32 Dose: 200 mls/hr Insulin Glargine (Lantus(*)) 40 units SUBCUT Q24H [facility] Last Admin: 07/04/19 09:20 Dose: 40 units Insulin Human Lispro (Humalog*) 0 units SUBCUT ACHS [facility]; Protocol Last Admin: 07/04/19 08:47 Dose: Not Given Metoprolol Succinate (Toprol Xl Tab*) 25 mg PO DAILY [facility] Last Admin: 07/04/19 09:16 Dose: 25 mg Multivitamins/Minerals (Theragran/Minerals Tab*) 1 tab PO DAILY [facility] Last Admin: 07/04/19 09:19 Dose: 1 tab Oxycodone/Acetaminophen (Percocet 5/325 Tab*) 1 tab PO Q4H PRN PRN Reason: PAIN - MODERATE Polyethylene Glycol/Electrolytes (Miralax (17 Gm Dose Deandre)) 17 gm PO DAILY [facility] Last Admin: 07/04/19 09:20 Dose: 17 gm Pramipexole Dihydrochloride (Mirapex Tab*) 1 mg PO BEDTIME [facility] Last Admin: 07/03/19 21:17 Dose: 1 mg Pregabalin (Lyrica 50 Mg Cap (*)) 50 mg PO TID [facility] Last Admin: 07/04/19 09:17 Dose: 50 mg Objective Vital Signs: Temp Pulse Resp BP Pulse Ox 98.8 F 73 18 123/63 97 07/04/19 10:01 07/04/19 10:52 07/04/19 10:52 07/04/19 10:01 07/04/19 10:52 Oxygen Devices in Use Now: Nasal Cannula Appearance: Sitting upright in bed,A+O x3, NAD. at bedside Eyes: No Scleral Icterus, PERRLA Ears/Nose/Mouth/Throat: NL Teeth, Lips, Gums, Clear Oropharnyx, Mucous Membranes Moist Neck: Trachea Midline, - - Unclear JVP Respiratory: - - Diminished throughout, clear. Cardiovascular: - - Normal S1, S2. irregular rate and rhythm. no murmur or gallop/rub Extremities: No Edema, - - left lower leg wrapped in curlex. \\ Skin: - - left anterior device site non tender to palpation, no pocket hematoma. no oozing. edged well approximated with alex. Neurological: Alert and Oriented x 3 Lines/Tubes/Other Access: Clean, Dry and Intact Vasquez, Clean, Dry and Intact Peripheral IV Laboratory Results: 07/03/19 06:44 07/03/19 06:44 INR (Anticoag Therapy) 1.68 (0.82-1.09) H 07/02/19 07:20 Total Bilirubin 2.00 mg/dL (0.2-1.0) H 06/29/19 12:55 AST 27 U/L (13-39) 06/29/19 12:55 ALT 11 U/L (7-52) 06/29/19 12:55 Alkaline Phosphatase 215 U/L (34-104) H 06/29/19 12:55 B-Natriuretic Peptide 382 pg/mL (<=100) H 06/29/19 12:55 Total Protein 6.5 g/dL (6.4-8.9) 06/29/19 12:55 Albumin 2.9 g/dL (3.2-5.2) L 06/29/19 12:55 Globulin 3.6 g/dL (2-4) 06/29/19 12:55 Albumin/Globulin Ratio 0.8 (1-3) L 06/29/19 12:55 TSH 6.08 mcIU/mL (0.34-5.60) H 06/29/19 12:55 06/27/19 15:58 Troponin I 0.02 Laboratory Results - last 24 hr 07/03/19 07/03/19 07/03/19 06:44 16:09 21:11 Sodium 137 Potassium 4.0 Chloride 103 Carbon Dioxide 27 Anion Gap 7 BUN 25 H Creatinine 0.86 Est GFR ( Amer) 77.2 Est GFR (Non-Af Amer) 63.8 BUN/Creatinine Ratio 29.1 H Glucose 108 H POC Glucose (mg/dL) 133 H 203 H Calcium 8.7 Magnesium 2.0 C-Reactive Protein 105.02 H Prealbumin 7 L Diagnostic Imagin07/03/2019 CXR pending. *[facility]* [place] [address] Fax #: [phone] Transthoracic Echocardiogram Patient: Nicole Lion : 1940 Study Date: 06/28/2019 Age: 79 Gender: F HR: 117 bpm Height: 65 in /165.1 cm BSA: 2.4 m^2 Weight: 314.3 lb /142.9 kg BMI: 52.4 kg/m^2 *Support Dba: * Paula Charles [facility] *Referring Physician: * Cathleen Cross *Reading Physician: * Sonu Sanchez MD Indications: Congestive Heart Failure. History: Atrial fibrillation. Pulmonary hypertension. PMH: Cardiomyopathy. Functional status: Not following treatment plan for sleep apnea. Risk factors: Hypertension. Diabetes mellitus. Morbidly obese. Hypercholesterolemia. Conclusions Summary: - Impressions: The study is unchanged since the study of January 2018. - Left ventricle: The cavity size is mildly dilated. Wall thickness is mildly increased. Systolic function is mildly reduced. The estimated ejection fraction is 40-45%. - Regional wall motion abnormality: Mild hypokinesis of the basal-mid anteroseptal and mid inferoseptal myocardium. - Right ventricle: The cavity size is moderately dilated. Wall thickness is mildly increased. Systolic function is moderately reduced. Systolic pressure is moderately increased. - Ventricular septum: There is diastolic flattening and systolic flattening. - Left atrium: The atrium is severely dilated. - Right atrium: The atrium is moderately to severely dilated. This report is only to be considered final once signed by the Provider(s) as displayed in the "<Electronically Signed by >" field (s). Absence of a signature indicates the report is in a draft status and still needs to be finalized. In the event this document was created by someone other than the signing Provider, the individual initiating the document will be listed in the "Entered by:" or "Dictated by:" aggarwal. Patient Name: NICOLE LION Medical Record#: [id number] Ordering Physician: Prakash Manrique MD Acct.#: [id number] : 1940 Age: 79 Sex: F Location: [address] [place] [address] MEDICAL/TELEMETRY Exam Date: 07/03/19 0800 ADM Status: ADM IN Order Information: CHEST PA & LAT 2 VWS Accession Number: [id number] CPT: 81665 INDICATION: Status post device implant. COMPARISON: Comparison is made with a prior study from June 27, 2019. TECHNIQUE: AP and lateral views of the chest were obtained. FINDINGS: The heart is mildly enlarged. The patient is status post placement of a transvenous pacemaker. The lungs are underinflated. There is bilateral increased density likely secondary to atelectasis. No pneumothorax is seen. IMPRESSION: STATUS POST PLACEMENT OF A TRANSVENOUS PACEMAKER, NO EVIDENCE FOR PNEUMOTHORAX. <Electronically signed by Kumar Cary MD in OV> 07/03/19 1403 Dictated By: Kumar Cary MD Dictated Date/Time: 07/03/19 1401 Transcribed Date/Time: 07/03/19 1401 Copy to: CC:Donita Wright MD; Priti Gonsales DO; Jorge Torres MD; Shoaib Yusuf MD; Paula Perera NP; Prakash Manrique MD; Damaso Sylvester MD Imaging - [facility] Imaging - [facility] - [facility] [address] [place], [place] [id number] [place] [id number] [place] [id number] ph ([phone]) ph ([phone]) ph ([phone]) This report is only to be considered final once signed by the Provider(s) as displayed in the "<Electronically Signed by >" field (s). Absence of a signature indicates the report is in a draft status and still needs to be finalized. In the event this document was created by someone other than the signing Provider, the individual initiating the document will be listed in the "Entered by:" or "Dictated by:" aggarwal. 1 of 1 EKG Data: 07/03/2019 ECG; Afib rate 91. 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 Currently in AF rate 60-70 Assessment/Plan #1 SSS with 9 second ventricular pause. Patient is s/p single chamber PPM implant 07/02/2019; Device site examined. No evidence of pocket hematoma. edges well approximated. May resume Eliquis, of note her BMI is 49.7 thus, DOAC may not be best OAC choice in this patient, however, her primary information systems professor Dr. Michel desired that she be placed back on Eliquis and f/u with him to discuss other options. #2 h/o Perm AF; historically on Eliqius and Toprol therapy. Continue Toprol 25mg /day. She had AF with RVR (170's) earlier today. She recieved IV Dig and IV Cardizem currently rates are controlled in 60-70's. Will update Dig level 2019. Her SBP is 99 thus would not start PO CCB therapy at this time. Tonight at 1999 will start Cardizem 60 mg with parameters. goal is to start Cardizem 120mg/day if BP allows. Another option is increasing Dig to 250mcg EOD depending upon patients BP response. LVEF is 40-45% so optimizing Dig may be reasonable. #3 h/o Severe PHTN; appears compensated at this time. managed by Dr. Mcihel. RVSP on this admits echo was moderate to severely increased. historically on Aldactone therapy. #4 Disposition pending course. Will update Dr. King Attending: Kathi King <Kathi King - Last Filed: 07/04/19 18:02> Medications Active Medications: Acetaminophen (Tylenol Tab*) 650 mg PO Q4H PRN PRN Reason: MILD PAIN or TEMP > 100.4 Last Admin: 07/03/19 10:13 Dose: 650 mg Albuterol (Ventolin 2.5 Mg/3 Ml Neb.Luba*) 2.5 mg INH [id number] AWAKE PRN PRN Reason: sob/wheezing Last Admin: 07/04/19 10:37 Dose: 2.5 mg Albuterol (Ventolin Hfa Inhaler*) 2 puff INH Q4H PRN PRN Reason: SHORTNESS OF BREATH Apixaban (Eliquis*) 5 mg PO BID [facility] Atorvastatin Calcium (Lipitor*) 20 mg PO QPM [facility] Last Admin: 07/04/19 17:25 Dose: 20 mg Bisacodyl (Dulcolax Supp*) 10 mg MA DAILY PRN PRN Reason: CONSTIPATION Cyanocobalamin (Vitamin B12 Tab*) 1,000 mcg PO DAILY [facility] Last Admin: 07/04/19 09:18 Dose: 1,000 mcg Dextrose (D50w Syringe 50 Ml*) 25 gm IV PUSH .FOR FS < 60 - SS PRN PRN Reason: FS < 60 Diltiazem HCl (Cardizem Cd Cap*) 120 mg PO DAILY [facility] Diltiazem HCl (Cardizem Tab*) 60 mg PO ONCE ONE Stop: 07/04/19 20:01 Docusate Sodium (Colace Cap*) 100 mg PO BID [facility] Last Admin: 07/04/19 09:19 Dose: 100 mg Famotidine (Pepcid Tab*) 20 mg PO DAILY [facility] Last Admin: 07/04/19 09:17 Dose: 20 mg Furosemide (Lasix Iv*) 20 mg IV SLOW PU 0900,1500 [facility] Last Admin: 07/04/19 16:05 Dose: 20 mg Cefazolin Sodium 1 gm/ Sodium (Chloride) 50 mls @ 200 mls/hr IVPB Q8H [facility] Last Admin: 07/04/19 17:37 Dose: 200 mls/hr Insulin Glargine (Lantus(*)) 40 units SUBCUT Q24H [facility] Last Admin: 07/04/19 09:20 Dose: 40 units Insulin Human Lispro (Humalog*) 0 units SUBCUT ACHS [facility]; Protocol Last Admin: 07/04/19 17:27 Dose: 2 units Lorazepam (Ativan Inj*) 0.5 mg IV PUSH Q6H PRN PRN Reason: ANXIETY Last Admin: 07/04/19 16:10 Dose: 0.5 mg Metoprolol Succinate (Toprol Xl Tab*) 25 mg PO DAILY [facility] Last Admin: 07/04/19 09:16 Dose: 25 mg Miscellaneous (Ativan Pyxis Lai) 1 ea N/A .ATIVAN IV LAI PRN PRN Reason: PYXIS LAI Multivitamins/Minerals (Theragran/Minerals Tab*) 1 tab PO DAILY [facility] Last Admin: 07/04/19 09:19 Dose: 1 tab Oxycodone/Acetaminophen (Percocet 5/325 Tab*) 1 tab PO Q4H PRN PRN Reason: PAIN - MODERATE Last Admin: 07/04/19 17:24 Dose: 1 tab Polyethylene Glycol/Electrolytes (Miralax (17 Gm Dose Deandre)) 17 gm PO DAILY [facility] Last Admin: 07/04/19 09:20 Dose: 17 gm Pramipexole Dihydrochloride (Mirapex Tab*) 1 mg PO BEDTIME [facility] Last Admin: 07/03/19 21:17 Dose: 1 mg Pregabalin (Lyrica 50 Mg Cap (*)) 50 mg PO TID [facility] Last Admin: 07/04/19 15:27 Dose: 50 mg Objective Vital Signs: Temp Pulse Resp BP Pulse Ox 97.8 F 65 24 99/49 95 07/04/19 16:08 07/04/19 12:12 07/04/19 17:24 07/04/19 12:12 07/04/19 12:12 Laboratory Results: 07/03/19 06:44 07/03/19 06:44 INR (Anticoag Therapy) 1.68 (0.82-1.09) H 07/02/19 07:20 Total Bilirubin 2.00 mg/dL (0.2-1.0) H 06/29/19 12:55 AST 27 U/L (13-39) 06/29/19 12:55 ALT 11 U/L (7-52) 06/29/19 12:55 Alkaline Phosphatase 215 U/L (34-104) H 06/29/19 12:55 B-Natriuretic Peptide 382 pg/mL (<=100) H 06/29/19 12:55 Total Protein 6.5 g/dL (6.4-8.9) 06/29/19 12:55 Albumin 2.9 g/dL (3.2-5.2) L 06/29/19 12:55 Globulin 3.6 g/dL (2-4) 06/29/19 12:55 Albumin/Globulin Ratio 0.8 (1-3) L 06/29/19 12:55 TSH 6.08 mcIU/mL (0.34-5.60) H 06/29/19 12:55 06/27/19 15:58 Troponin I 0.02 Assessment/Plan I examined the patient personally. She feels her breathing is much better than last evening (when tachycardic). Rates now controlled after rate control as above, frequent V pacing. Pt with chronic afib, s/p pacer for pauses with RVR last evening/early this AM. She has responded to additional rate lowering agents. Cor Pulmonale and moderately depressed LVEF. Future options include higher doses of BB, could change to Atenolol of lungs intolerant to metoprolol. Verapamil will lower rate better than diltiazem but at the risk of negative ionotropic effects on the weak verticals. Continue above for now, reassess in AM.
[2019-07-04 15:34] LABS: Albumin 2.5 g/dL (3.4-4.7); Albumin/Globulin Ratio 0.62; Gamma Globulin 1.9 g/dL (0.6-1.6); Total Protein(PEP) 6.6 g/dL (6.3 - 7.9)
--- NOTE | 2019-07-04 15:47 | PN ---
Progress Note - Progress Note Date of Service: 07/04/19 SOAP: Subjective: []Pt seen at bedside, she is back in ICU for a fib w rvr. Right foot is not bothersome. Denies any foot pain, drainage, swelling, fever or chills. Objective: []Gen: A&Ox3, NAD at rest RLE: Incision to lateral foot with mild dehiscence. No purulent drainage. No erythema present. No feeling to foot due to neuropathy. 1+ DP pulse. Assessment: Right foot cellulitis improving, mild wound dehiscence Plan: Continue with daily betadine wet-to-dry dressing changes IV abx per ID - ancef Heel WB on right foot with post op shoe over dressing Ortho to continue to follow Vital Signs Temp 99.0 F 07/04/19 12:12 Pulse 65 07/04/19 12:12 Resp 18 07/04/19 13:00 BP 99/49 07/04/19 12:12 Pulse Ox 95 07/04/19 12:12 Intake & Output 07/03/19 07/04/19 07/04/19 18:59 06:59 18:59 Intake Total 240 47 660 Output Total 650 555 440 Balance -410 -508 220 Weight 319 lb 4.8 oz Intake: IVPB 47 NS (0.9%) 47 Oral 240 660 Output: Vasquez 650 555 440 Other: Date of Last Bowel unknown Movement Laboratory Last Values WBC 6.0 10^3/uL (3.5-10.8) 07/03/19 06:44 RBC 3.70 10^6 /uL (3.70-4.87) 07/03/19 06:44 Hgb 9.6 g/dL (12.0-16.0) L 07/03/19 06:44 Hct 30 % (35-47) L 07/03/19 06:44 MCV 82 fL (80-97) 07/03/19 06:44 MCH 26 pg (27-31) L 07/03/19 06:44 MCHC 32 g/dL (31-36) 07/03/19 06:44 RDW 22 % (10-15) H 07/03/19 06:44 Plt Count 100 10^3/uL (150-450) L 07/03/19 06:44 MPV 8.1 fL (7.4-10.4) 07/03/19 06:44 Neut % (Auto) 71.7 % 07/03/19 06:44 Lymph % (Auto) 14.1 % 07/03/19 06:44 [place] % (Auto) 11.1 % 07/03/19 06:44 Eos % (Auto) 2.5 % 07/03/19 06:44 Baso % (Auto) 0.6 % 07/03/19 06:44 Absolute Neuts (auto) 4.3 10^3/ul (1.5-7.7) 07/03/19 06:44 Absolute Lymphs (auto) 0.8 10^3/ul (1.0-4.8) L 07/03/19 06:44 Absolute Monos (auto) 0.7 10^3/ul (0-0.8) 07/03/19 06:44 Absolute Eos (auto) 0.1 10^3/ul (0-0.6) 07/03/19 06:44 Absolute Basos (auto) 0.0 10^3/ul (0-0.2) 07/03/19 06:44 Absolute Nucleated RBC 0.0 10^3/ul 07/03/19 06:44 Nucleated RBC % 0.1 07/03/19 06:44 INR (Anticoag Therapy) 1.68 (0.82-1.09) H 07/02/19 07:20 D-Dimer, Quantitative 373 ng/mL (Less Than 230) H 06/29/19 12:55 Sodium 137 mmol/L (135-145) 07/03/19 06:44 Potassium 4.0 mmol/L (3.5-5.0) 07/03/19 06:44 Chloride 103 mmol/L (101-111) 07/03/19 06:44 Carbon Dioxide 27 mmol/L (22-32) 07/03/19 06:44 Anion Gap 7 mmol/L (2-11) 07/03/19 06:44 BUN 25 mg/dL (6-24) H 07/03/19 06:44 Creatinine 0.86 mg/dL (0.51-0.95) 07/03/19 06:44 Est GFR ( Amer) 77.2 (>60) 07/03/19 06:44 Est GFR (Non-Af Amer) 63.8 (>60) 07/03/19 06:44 BUN/Creatinine Ratio 29.1 (8-20) H 07/03/19 06:44 Glucose 108 mg/dL (70-100) H 07/03/19 06:44 POC Glucose (mg/dL) 203 mg/dL (70-100) H 07/03/19 21:11 Lactic Acid 1.0 mmol/L (0.5-2.0) 06/28/19 12:58 Calcium 8.7 mg/dL (8.6-10.3) 07/03/19 06:44 Magnesium 2.0 mg/dL (1.9-2.7) 07/03/19 06:44 Iron 60 ug/dL (50-212) 06/29/19 12:55 TIBC 378 mcg/dL (250-450) 06/29/19 12:55 % Saturation 16 % (15-55) 06/29/19 12:55 Unsat Iron Binding < 363 ug/dL 06/29/19 12:55 Transferrin 270 mg/dL (203-362) 06/29/19 12:55 Ferritin 74.2 ng/mL (11-307) 06/29/19 12:55 Total Bilirubin 2.00 mg/dL (0.2-1.0) H 06/29/19 12:55 AST 27 U/L (13-39) 06/29/19 12:55 ALT 11 U/L (7-52) 06/29/19 12:55 Alkaline Phosphatase 215 U/L (34-104) H 06/29/19 12:55 Troponin I 0.02 ng/mL (<0.03) 06/27/19 15:58 C-Reactive Protein 105.02 mg/L (<8.01) H 07/03/19 06:44 B-Natriuretic Peptide 382 pg/mL (<=100) H 06/29/19 12:55 Total Protein 6.5 g/dL (6.4-8.9) 06/29/19 12:55 Total Protein (PEP) 6.6 g/dL (6.3 - 7.9) 06/30/19 05:00 Albumin 2.9 g/dL (3.2-5.2) L 06/29/19 12:55 Albumin (PEP) 2.5 g/dL (3.4-4.7) L 06/30/19 05:00 Globulin 3.6 g/dL (2-4) 06/29/19 12:55 Albumin/Globulin Ratio 0.8 (1-3) L 06/29/19 12:55 Albumin/Globulin (PEP) 0.62 06/30/19 05:00 Prealbumin 7 mg/dL (18-38) L 07/03/19 06:44 Cqlyd-2-Rgajltksz 0.4 g/dL (0.1-0.3) H 06/30/19 05:00 Vjwup-6-Echmrigix 0.8 g/dL (0.6-1.0) 06/30/19 05:00 Asjr-8-Nlbdzqmq 1.0 g/dL (0.7-1.2) 06/30/19 05:00 Gamma Globulins 1.9 g/dL (0.6-1.6) H 06/30/19 05:00 PEP Impression See comment 06/30/19 05:00 Lipase 84 U/L (11.0-82.0) H 06/27/19 15:58 Vitamin B12 800 pg/mL (180-914) 06/29/19 12:55 Folate 17.18 ng/mL (>3.99) 06/29/19 12:55 TSH 6.08 mcIU/mL (0.34-5.60) H 06/29/19 12:55 Urine Color Anca 06/29/19 20:45 Urine Appearance Clear 06/29/19 20:45 Urine pH 5.0 (5-9) 06/29/19 20:45 Ur Specific [place] 1.020 (1.010-1.030) 06/29/19 20:45 Urine Protein Negative (Negative) 06/29/19 20:45 Urine Ketones Negative (Negative) 06/29/19 20:45 Urine Blood Negative (Negative) 06/29/19 20:45 Urine Nitrate Negative (Negative) 06/29/19 20:45 Urine Bilirubin Negative (Negative) 06/29/19 20:45 Urine Urobilinogen Positive (Negative) A 06/29/19 20:45 Ur Leukocyte Esterase Negative (Negative) 06/29/19 20:45 Urine Glucose Negative (Negative) 06/29/19 20:45 Vancomycin Trough 20.0 mcg/mL 07/02/19 14:05 Random Vancomycin 15.0 mcg/mL 07/01/19 05:00 Digoxin 1.1 ng/ml (0.8-2.0) 07/04/19 13:02 Influenza A (Rapid) Negative (Negative) 06/27/19 22:55 Influenza B (Rapid) Negative (Negative) 06/27/19 22:55
[2019-07-04] MEDS ORDERED: Lorazepam PYXIS KEY PRN (16:04)
[2019-07-04] MEDS: LORazepam INJ* 2 MG/ML 1 ML VIAL IV PUSH PRN (16:10)
[2019-07-04] MEDS: Atorvastatin* 20 MG TAB PO SCH (17:25)
[2019-07-04] MEDS ORDERED: Naloxone* 0.4 MG/ML 1 ML VIAL IV PUSH ONE (20:48)
[2019-07-04] MEDS ORDERED: Naloxone* 0.4 MG/ML 1 ML VIAL ONE (20:51)
[2019-07-04] MEDS ORDERED: Apixaban* 5 MG TAB PO SCH (21:00)
[2019-07-04 21:13] LABS: ABS Eosinophils 0.2 10^3/ul (0-0.6); ABS Lymphocytes 0.8 10^3/ul (1.0-4.8); ABS Monocytes 0.6 10^3/ul (0-0.8); ABS Neutrophils 3.5 10^3/ul (1.5-7.7); Eosinophil % 4.3 %; Hematocrit 29 % (35-47); Hemoglobin 9.1 g/dL (12.0-16.0); Lymphocyte % 15.2 %; Mean Corpuscular HGB Conc 32 g/dL (31-36); Mean Corpuscular Hemoglobin 26 pg (27-31); Mean Corpuscular Volume 82 fL (80-97); Mean Platelet Volume 7.8 fL (7.4-10.4); Nucleated Red Blood Cells % 0.3; Platelet Count 116 10^3/uL (150-450); Red Blood Count 3.47 10^6 /uL (3.70-4.87); Red Cell Distribution Width 22 % (10-15); White Blood Count 5.2 10^3/uL (3.5-10.8)
[2019-07-04 21:29] LABS: BUN/Creatinine Ratio 33.7 (8-20); Calcium 8.8 mg/dL (8.6-10.3); EGFR African American 77.2 (>60); EGFR Non-African American 63.8 (>60)
[2019-07-05] MEDS: ceFAZolin 1 GM ADVAN(*) 1 GM in NS 0.9% 50 ML* 50 ML IVPB SCH ×3 (00:57→16:50)
[2019-07-05] MEDS: Apixaban* 5 MG TAB PO SCH ×3 (01:12→21:13)
[2019-07-05] MEDS: Pramipexole TAB* 0.5 MG PO SCH ×2 (01:12→21:13)
[2019-07-05] MEDS: Insulin LISPRO* 1 UNITS UNIT SUBCUT SCH ×4 (07:58→21:12)
[2019-07-05] MEDS ORDERED: Diltiazem CD CAP* 120 MG PO SCH (09:00)
[2019-07-05] MEDS: Polyethylene Glycol 3350* 17 GM PACKET PO SCH (09:02)
[2019-07-05] MEDS: Famotidine TAB* 20 MG PO SCH (09:02)
[2019-07-05] MEDS: Metoprolol Succinate XL TAB* 25 MG PO SCH (09:03)
[2019-07-05] MEDS: Pregabalin 50 mg CAP (*) PO SCH ×3 (09:03→21:14)
[2019-07-05] MEDS: Multivitamins/Minerals TAB PO SCH (09:03)
[2019-07-05] MEDS: Docusate CAP* 100 MG PO SCH ×2 (09:03→21:14)
[2019-07-05] MEDS: Cyanocobalamin TAB* 500 MCG PO SCH (09:03)
[2019-07-05] MEDS: Insulin GLARGINE(*) 1 UNITS UNIT SUBCUT SCH (09:04)
[2019-07-05] MEDS: Furosemide IV* 10 MG/ML 2 ML VIAL (20 MG) IV SLOW PU SCH ×2 (09:07→15:20)
--- NOTE | 2019-07-05 11:35 | PN ---
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 cuff accuracy - Dr. Michel most recent outpatient note reviewed tele rate controlled intermittent vpaced Medications Active Medications: Acetaminophen (Tylenol Tab*) 650 mg PO Q4H PRN PRN Reason: MILD PAIN or TEMP > 100.4 Last Admin: 07/03/19 10:13 Dose: 650 mg Albuterol (Ventolin 2.5 Mg/3 Ml Neb.Luba*) 2.5 mg INH RT.[id number] AWAKE PRN PRN Reason: sob/wheezing Last Admin: 07/04/19 10:37 Dose: 2.5 mg Albuterol (Ventolin Hfa Inhaler*) 2 puff INH Q4H PRN PRN Reason: SHORTNESS OF BREATH Apixaban (Eliquis*) 5 mg PO BID [facility] Last Admin: 07/05/19 09:03 Dose: 5 mg Atorvastatin Calcium (Lipitor*) 20 mg PO QPM [facility] Last Admin: 07/04/19 17:25 Dose: 20 mg Bisacodyl (Dulcolax Supp*) 10 mg ID DAILY PRN PRN Reason: CONSTIPATION Cyanocobalamin (Vitamin B12 Tab*) 1,000 mcg PO DAILY [facility] Last Admin: 07/05/19 09:03 Dose: 1,000 mcg Dextrose (D50w Syringe 50 Ml*) 25 gm IV PUSH .FOR FS < 60 - SS PRN PRN Reason: FS < 60 Docusate Sodium (Colace Cap*) 100 mg PO BID [facility] Last Admin: 07/05/19 09:03 Dose: 100 mg Famotidine (Pepcid Tab*) 20 mg PO DAILY [facility] Last Admin: 07/05/19 09:02 Dose: 20 mg Furosemide (Lasix Iv*) 20 mg IV SLOW PU 0900,1500 [facility] Last Admin: 07/05/19 09:07 Dose: 20 mg Cefazolin Sodium 1 gm/ Sodium (Chloride) 50 mls @ 200 mls/hr IVPB Q8H [facility] Last Admin: 07/05/19 09:04 Dose: 200 mls/hr Insulin Glargine (Lantus(*)) 40 units SUBCUT Q24H [facility] Last Admin: 07/05/19 09:04 Dose: 40 units Insulin Human Lispro (Humalog*) 0 units SUBCUT [facility]; Protocol Last Admin: 07/05/19 07:58 Dose: Not Given Lorazepam (Ativan Inj*) 0.5 mg IV PUSH Q6H PRN PRN Reason: ANXIETY Last Admin: 07/04/19 16:10 Dose: 0.5 mg Metoprolol Succinate (Toprol Xl Tab*) 25 mg PO DAILY [facility] Last Admin: 07/05/19 09:03 Dose: 25 mg Miscellaneous (Ativan Pyxis Connors) 1 ea N/A .ATIVAN IV CONNORS PRN PRN Reason: PYXIS CONNORS Multivitamins/Minerals (Theragran/Minerals Tab*) 1 tab PO DAILY [facility] Last Admin: 07/05/19 09:03 Dose: 1 tab Oxycodone/Acetaminophen (Percocet 5/325 Tab*) 1 tab PO Q4H PRN PRN Reason: PAIN - MODERATE Last Admin: 07/04/19 17:24 Dose: 1 tab Polyethylene Glycol/Electrolytes (Miralax (17 Gm Dose Deandre)) 17 gm PO DAILY [facility] Last Admin: 07/05/19 09:02 Dose: 17 gm Pramipexole Dihydrochloride (Mirapex Tab*) 1 mg PO BEDTIME [facility] Last Admin: 07/05/19 01:12 Dose: Not Given Pregabalin (Lyrica 50 Mg Cap (*)) 50 mg PO TID [facility] Last Admin: 07/05/19 09:03 Dose: 50 mg Spironolactone (Aldactone Tab*) 25 mg PO DAILY [facility] Torsemide (Demadex*) 40 mg PO DAILY [facility] Objective Vital Signs: Temp Pulse Resp BP Pulse Ox 96.5 F 58 20 111/59 100 07/05/19 07:36 07/05/19 07:36 07/05/19 09:03 07/05/19 07:36 07/05/19 07:36 Oxygen Devices in Use Now: Nasal Cannula Appearance: nad, pleasant Eyes: No Scleral Icterus, PERRLA Neck: Trachea Midline, - - uncertain jvp Respiratory: Symmetrical Chest Expansion and Respiratory Effort, - - basilar crackles Cardiovascular: - - irregularly irregular no significant murmur Extremities: No Edema, - - 1+ edema b/l Skin: - - left anterior device site non tender to palpation, no pocket hematoma. no oozing. edged well approximated with alex. Neurological: Alert and Oriented x 3 Lines/Tubes/Other Access: Clean, Dry and Intact Vasquez, Clean, Dry and Intact Peripheral IV Laboratory Results: 07/04/19 21:06 07/04/19 21:06 INR (Anticoag Therapy) 1.68 (0.82-1.09) H 07/02/19 07:20 Total Bilirubin 2.00 mg/dL (0.2-1.0) H 06/29/19 12:55 AST 27 U/L (13-39) 06/29/19 12:55 ALT 11 U/L (7-52) 06/29/19 12:55 Alkaline Phosphatase 215 U/L (34-104) H 06/29/19 12:55 B-Natriuretic Peptide 382 pg/mL (<=100) H 06/29/19 12:55 Total Protein 6.5 g/dL (6.4-8.9) 06/29/19 12:55 Albumin 2.9 g/dL (3.2-5.2) L 06/29/19 12:55 Globulin 3.6 g/dL (2-4) 06/29/19 12:55 Albumin/Globulin Ratio 0.8 (1-3) L 06/29/19 12:55 TSH 6.08 mcIU/mL (0.34-5.60) H 06/29/19 12:55 06/27/19 15:58 Troponin I 0.02 Diagnostic Imaging: Transthoracic Echocardiogram Study Date: 06/28/2019 Conclusions Summary: - Impressions: The study is unchanged since the study of January 2018. - Left ventricle: The cavity size is mildly dilated. Wall thickness is mildly increased. Systolic function is mildly reduced. The estimated ejection fraction is 40-45%. - Regional wall motion abnormality: Mild hypokinesis of the basal-mid anteroseptal and mid inferoseptal myocardium. - Right ventricle: The cavity size is moderately dilated. Wall thickness is mildly increased. Systolic function is moderately reduced. Systolic pressure is moderately increased. - Ventricular septum: There is diastolic flattening and systolic flattening. - Left atrium: The atrium is severely dilated. - Right atrium: The atrium is moderately to severely dilated. Patient Name: KENNEDI LION Medical Record#: [id number] Ordering Physician: Prakash Manrique MD Acct.#: [id number] : 1940 Age: 79 Sex: F Location: [address] [place] [address] MEDICAL/TELEMETRY Exam Date: 07/03/19 0800 ADM Status: ADM IN Order Information: CHEST PA & LAT 2 VWS Accession Number: [id number] CPT: 75717 INDICATION: Status post device implant. COMPARISON: Comparison is made with a prior study from June 27, 2019. TECHNIQUE: AP and lateral views of the chest were obtained. FINDINGS: The heart is mildly enlarged. The patient is status post placement of a transvenous pacemaker. The lungs are underinflated. There is bilateral increased density likely secondary to atelectasis. No pneumothorax is seen. IMPRESSION: STATUS POST PLACEMENT OF A TRANSVENOUS PACEMAKER, NO EVIDENCE FOR PNEUMOTHORAX. Assessment/Plan - restart home torsemide (may need higher dose at d/c) 40 mg daily (ordered). can overlap with iv lasix for today - restart home aldactone (ordered). 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 suspect once medically stabilized rates will normalize had been ok on 25 mg for outpatient holter in past - d/c diltiazem (ordered) - continue anticoagulation
[2019-07-05] MEDS ORDERED: Digoxin TAB* 0.125 MG PO SCH (12:00)
[2019-07-05] MEDS: Torsemide TAB* 20 MG PO SCH (12:36)
[2019-07-05] MEDS: Spironolactone TAB* 25 MG PO SCH (12:36)
--- NOTE | 2019-07-05 12:52 | PN ---
Progress Note - Progress Note Date of Service: 07/05/19 SOAP: Subjective: []Pt seen at bedside. She feels well and is back out of ICU today. No R foot pain. Objective: []Gen: A&Ox3, NAD at rest RLE: Dressing CDI, No erythema surrounding. No feeling to foot due to neuropathy. 1+ DP pulse. Assessment: Right foot cellulitis improving, mild wound dehiscence Plan: Continue with daily betadine wet-to-dry dressing changes, changed earlier today by nursing IV abx per ID - ancef Heel WB on right foot with post op shoe over dressing Ortho to continue to follow Vital Signs Temp 96 F 07/05/19 11:46 Pulse 59 07/05/19 11:46 Resp 18 07/05/19 11:46 BP 104/78 07/05/19 11:46 Pulse Ox 100 07/05/19 11:46 Intake & Output 07/04/19 07/05/19 07/05/19 18:59 06:59 18:59 Intake Total 660 240 Output Total 440 450 550 Balance 220 -450 -310 Weight 315 lb 4.8 oz Intake: Oral 660 240 Output: Vasquez 440 450 550 Laboratory Last Values WBC 5.2 10^3/uL (3.5-10.8) 07/04/19 21:06 RBC 3.47 10^6 /uL (3.70-4.87) L 07/04/19 21:06 Hgb 9.1 g/dL (12.0-16.0) L 07/04/19 21:06 Hct 29 % (35-47) L 07/04/19 21:06 MCV 82 fL (80-97) 07/04/19 21:06 MCH 26 pg (27-31) L 07/04/19 21:06 MCHC 32 g/dL (31-36) 07/04/19 21:06 RDW 22 % (10-15) H 07/04/19 21:06 Plt Count 116 10^3/uL (150-450) L 07/04/19 21:06 MPV 7.8 fL (7.4-10.4) 07/04/19 21:06 Neut % (Auto) 67.9 % 07/04/19 21:06 Lymph % (Auto) 15.2 % 07/04/19 21:06 [place] % (Auto) 11.7 % 07/04/19 21:06 Eos % (Auto) 4.3 % 07/04/19 21:06 Baso % (Auto) 0.9 % 07/04/19 21:06 Absolute Neuts (auto) 3.5 10^3/ul (1.5-7.7) 07/04/19 21:06 Absolute Lymphs (auto) 0.8 10^3/ul (1.0-4.8) L 07/04/19 21:06 Absolute Monos (auto) 0.6 10^3/ul (0-0.8) 07/04/19 21:06 Absolute Eos (auto) 0.2 10^3/ul (0-0.6) 07/04/19 21:06 Absolute Basos (auto) 0.0 10^3/ul (0-0.2) 07/04/19 21:06 Absolute Nucleated RBC 0.0 10^3/ul 07/04/19 21:06 Nucleated RBC % 0.3 07/04/19 21:06 INR (Anticoag Therapy) 1.68 (0.82-1.09) H 07/02/19 07:20 D-Dimer, Quantitative 373 ng/mL (Less Than 230) H 06/29/19 12:55 Patient Temperature Not Reportable 07/04/19 21:13 ABG pH 7.40 (7.35-7.45) 07/04/19 21:13 ABG pH (Temp Correct) Not Reportable 07/04/19 21:13 ABG pCO2 45 mmHg (35-45) 07/04/19 21:13 ABG pCO2 (Temp Corrct Not Reportable 07/04/19 21:13 ABG pO2 123 mmHg (80-100) H 07/04/19 21:13 ABG pO2 (Temp Correct Not Reportable 07/04/19 21:13 ABG HCO3 26.8 mmol/L (19-31) 07/04/19 21:13 ABG O2 Saturation 99.1 % (94.0-98.0) H 07/04/19 21:13 ABG Base Excess 2.5 mmol/L (-2.0-2.0) H 07/04/19 21:13 Respiration Rate Not Reportable 07/04/19 21:13 O2 Delivery Device oximask 07/04/19 21:13 Ventilator Type Not Reportable 07/04/19 21:13 Vent Mode Not Reportable 07/04/19 21:13 FiO2 Not Reportable 07/04/19 21:13 Inspiratory Time Not Reportable 07/04/19 21:13 PEEP Not Reportable 07/04/19 21:13 Pressure Support Not Reportable 07/04/19 21:13 Pressure Control Not Reportable 07/04/19 21:13 EPAP Not Reportable 07/04/19 21:13 IPAP Not Reportable 07/04/19 21:13 BiPAP Not Reportable 07/04/19 21:13 Sodium 137 mmol/L (135-145) 07/04/19 21:06 Potassium 4.0 mmol/L (3.5-5.0) 07/04/19 21:06 Chloride 104 mmol/L (101-111) 07/04/19 21:06 Carbon Dioxide 29 mmol/L (22-32) 07/04/19 21:06 Anion Gap 4 mmol/L (2-11) 07/04/19 21:06 BUN 29 mg/dL (6-24) H 07/04/19 21:06 Creatinine 0.86 mg/dL (0.51-0.95) 07/04/19 21:06 Est GFR ( Amer) 77.2 (>60) 07/04/19 21:06 Est GFR (Non-Af Amer) 63.8 (>60) 07/04/19 21:06 BUN/Creatinine Ratio 33.7 (8-20) H 07/04/19 21:06 Glucose 112 mg/dL (70-100) H 07/04/19 21:06 POC Glucose (mg/dL) 169 mg/dL (70-100) H 07/05/19 11:43 Lactic Acid 1.0 mmol/L (0.5-2.0) 06/28/19 12:58 Calcium 8.8 mg/dL (8.6-10.3) 07/04/19 21:06 Magnesium 2.0 mg/dL (1.9-2.7) 07/03/19 06:44 Iron 60 ug/dL (50-212) 06/29/19 12:55 TIBC 378 mcg/dL (250-450) 06/29/19 12:55 % Saturation 16 % (15-55) 06/29/19 12:55 Unsat Iron Binding < 363 ug/dL 06/29/19 12:55 Transferrin 270 mg/dL (203-362) 06/29/19 12:55 Ferritin 74.2 ng/mL (11-307) 06/29/19 12:55 Total Bilirubin 2.00 mg/dL (0.2-1.0) H 06/29/19 12:55 AST 27 U/L (13-39) 06/29/19 12:55 ALT 11 U/L (7-52) 06/29/19 12:55 Alkaline Phosphatase 215 U/L (34-104) H 06/29/19 12:55 Troponin I 0.02 ng/mL (<0.03) 06/27/19 15:58 C-Reactive Protein 105.02 mg/L (<8.01) H 07/03/19 06:44 B-Natriuretic Peptide 382 pg/mL (<=100) H 06/29/19 12:55 Total Protein 6.5 g/dL (6.4-8.9) 06/29/19 12:55 Total Protein (PEP) 6.6 g/dL (6.3 - 7.9) 06/30/19 05:00 Albumin 2.9 g/dL (3.2-5.2) L 06/29/19 12:55 Albumin (PEP) 2.5 g/dL (3.4-4.7) L 06/30/19 05:00 Globulin 3.6 g/dL (2-4) 06/29/19 12:55 Albumin/Globulin Ratio 0.8 (1-3) L 06/29/19 12:55 Albumin/Globulin (PEP) 0.62 06/30/19 05:00 Prealbumin 7 mg/dL (18-38) L 07/03/19 06:44 Szhto-9-Tmdoaqxmq 0.4 g/dL (0.1-0.3) H 06/30/19 05:00 Qgzqk-8-Pzywbzxig 0.8 g/dL (0.6-1.0) 06/30/19 05:00 Ebkm-8-Jjrwhfgr 1.0 g/dL (0.7-1.2) 02/08/20 05:00 Gamma Globulins 1.9 g/dL (0.6-1.6) H 06/30/19 05:00 PEP Impression See comment 06/30/19 05:00 Lipase 84 U/L (11.0-82.0) H 06/27/19 15:58 Vitamin B12 800 pg/mL (180-914) 06/29/19 12:55 Folate 17.18 ng/mL (>3.99) 06/29/19 12:55 TSH 6.08 mcIU/mL (0.34-5.60) H 06/29/19 12:55 Urine Color Anca 06/29/19 20:45 Urine Appearance Clear 06/29/19 20:45 Urine pH 5.0 (5-9) 06/29/19 20:45 Ur Specific [place] 1.020 (1.010-1.030) 06/29/19 20:45 Urine Protein Negative (Negative) 06/29/19 20:45 Urine Ketones Negative (Negative) 06/29/19 20:45 Urine Blood Negative (Negative) 06/29/19 20:45 Urine Nitrate Negative (Negative) 06/29/19 20:45 Urine Bilirubin Negative (Negative) 06/29/19 20:45 Urine Urobilinogen Positive (Negative) A 06/29/19 20:45 Ur Leukocyte Esterase Negative (Negative) 06/29/19 20:45 Urine Glucose Negative (Negative) 06/29/19 20:45 Vancomycin Trough 20.0 mcg/mL 07/02/19 14:05 Random Vancomycin 15.0 mcg/mL 07/01/19 05:00 Digoxin 1.1 ng/ml (0.8-2.0) 07/04/19 13:02 Influenza A (Rapid) Negative (Negative) 06/27/19 22:55 Influenza B (Rapid) Negative (Negative) 06/27/19 22:55 []
--- NOTE | 2019-07-05 14:55 | PN ---
Subjective Date of Service: 07/05/19 Interval History: Ms. Kaufman c/o mild SOB with coughing; states she has had a cough for appx 6 months with no change. She states her LE edema is improved. She denies pain in LE, L knee. She continues to be on supplemental O2, which is not her baseline. She c/o occasional dizziness, worse with standing. No other complaints today. Family History: Unchanged from Admission Social History: Unchanged from Admission Past Medical History: Unchanged from Admission Objective Active Medications: Acetaminophen (Tylenol Tab*) 650 mg PO Q4H PRN PRN Reason: MILD PAIN or TEMP > 100.4 Last Admin: 07/03/19 10:13 Dose: 650 mg Albuterol (Ventolin 2.5 Mg/3 Ml Neb.Luba*) 2.5 mg INH [id number] AWAKE PRN PRN Reason: sob/wheezing Last Admin: 07/04/19 10:37 Dose: 2.5 mg Albuterol (Ventolin Hfa Inhaler*) 2 puff INH Q4H PRN PRN Reason: SHORTNESS OF BREATH Apixaban (Eliquis*) 5 mg PO BID [facility] Last Admin: 07/05/19 09:03 Dose: 5 mg Atorvastatin Calcium (Lipitor*) 20 mg PO QPM [facility] Last Admin: 07/04/19 17:25 Dose: 20 mg Bisacodyl (Dulcolax Supp*) 10 mg ME DAILY PRN PRN Reason: CONSTIPATION Cyanocobalamin (Vitamin B12 Tab*) 1,000 mcg PO DAILY [facility] Last Admin: 07/05/19 09:03 Dose: 1,000 mcg Dextrose (D50w Syringe 50 Ml*) 25 gm IV PUSH .FOR FS < 60 - SS PRN PRN Reason: FS < 60 Docusate Sodium (Colace Cap*) 100 mg PO BID [facility] Last Admin: 07/05/19 09:03 Dose: 100 mg Famotidine (Pepcid Tab*) 20 mg PO DAILY [facility] Last Admin: 07/05/19 09:02 Dose: 20 mg Furosemide (Lasix Iv*) 20 mg IV SLOW PU 0900,1500 [facility] Last Admin: 07/05/19 09:07 Dose: 20 mg Cefazolin Sodium 1 gm/ Sodium (Chloride) 50 mls @ 200 mls/hr IVPB Q8H [facility] Last Admin: 07/05/19 09:04 Dose: 200 mls/hr Insulin Glargine (Lantus(*)) 40 units SUBCUT Q24H [facility] Last Admin: 07/05/19 09:04 Dose: 40 units Insulin Human Lispro (Humalog*) 0 units SUBCUT ACHS [facility]; Protocol Last Admin: 07/05/19 12:36 Dose: 2 units Lorazepam (Ativan Inj*) 0.5 mg IV PUSH Q6H PRN PRN Reason: ANXIETY Last Admin: 07/04/19 16:10 Dose: 0.5 mg Metoprolol Succinate (Toprol Xl Tab*) 50 mg PO DAILY [facility] Miscellaneous (Ativan Pyxis Connors) 1 ea N/A .ATIVAN IV CONNORS PRN PRN Reason: PYXIS CONNORS Multivitamins/Minerals (Theragran/Minerals Tab*) 1 tab PO DAILY [facility] Last Admin: 07/05/19 09:03 Dose: 1 tab Oxycodone/Acetaminophen (Percocet 5/325 Tab*) 1 tab PO Q4H PRN PRN Reason: PAIN - MODERATE Last Admin: 07/04/19 17:24 Dose: 1 tab Polyethylene Glycol/Electrolytes (Miralax (17 Gm Dose Deandre)) 17 gm PO DAILY [facility] Last Admin: 07/05/19 09:02 Dose: 17 gm Pramipexole Dihydrochloride (Mirapex Tab*) 1 mg PO BEDTIME [facility] Last Admin: 07/05/19 01:12 Dose: Not Given Pregabalin (Lyrica 50 Mg Cap (*)) 50 mg PO TID [facility] Last Admin: 07/05/19 09:03 Dose: 50 mg Spironolactone (Aldactone Tab*) 25 mg PO DAILY [facility] Last Admin: 07/05/19 12:36 Dose: 25 mg Torsemide (Demadex*) 40 mg PO DAILY [facility] Last Admin: 07/05/19 12:36 Dose: 40 mg Vital Signs: Temp Pulse Resp BP Pulse Ox 96 F 59 18 104/78 100 07/05/19 11:46 07/05/19 11:46 07/05/19 11:46 07/05/19 11:46 07/05/19 11:46 Oxygen Devices in Use Now: Nasal Cannula Appearance: Ms. Kaufman is an elderly white female who is sitting up in bed. She appears to be in no acute distress, resting comfortably. No increased work of breathin, but is on supplemental O2. Ears/Nose/Mouth/Throat: NL Teeth, Lips, Gums, Clear Oropharnyx, Mucous Membranes Moist Neck: NL Appearance and Movements; NL JVP, Trachea Midline Respiratory: Symmetrical Chest Expansion and Respiratory Effort, - - LLL rales; otherwise clear to auscultation Cardiovascular: NL Sounds; No Murmurs; No JVD, RRR, - - LUE in sling; CDI dressing in place to L upper chest; PPM site with mild ecchymosis, without surrounding erythema; site approximated with staple, no drainage; 1+ pretibial pitting edema to b/l LE Abdominal: NL Sounds; No Tenderness; No Distention, No Hepatosplenomegaly Extremities: - - 1+ pretibial pitting edema to b/l LE; R LE with 5th digit amputation; L LE with digits 1-3 amputated (old) Neurological: Alert and Oriented x 3 Result Diagrams: 07/04/19 21:06 07/04/19 21:06 Additional Lab and Data: Above labs were pulled into the note, when the note was edited prior to signing. See below for labs from day of consultation. Laboratory Tests 06/29/19 07/03/19 07/03/19 12:55 06:44 06:44 WBC 6.0 Hgb 9.6 L Hct 30 L Plt Count 100 L Sodium 137 Potassium 4.0 Chloride 103 Carbon Dioxide 27 BUN 25 H Creatinine 0.86 Glucose 108 H Total Protein 6.5 Albumin 2.9 L Microbiology and Other Data: Microbiology 06/27/19 23:57 Aerobic Blood Culture - Preliminary Blood Venous No Growth Day 1 Anaerobic Blood Culture - Preliminary No Growth Day 1 06/27/19 23:57 Aerobic Blood Culture - Preliminary Blood Venous No Growth Day 1 Anaerobic Blood Culture - Preliminary No Growth Day 1 Diagnostic Imagin. Exam Date: 06/29/19 1517 - VL LOWER EXT VEINS BILATERAL IMPRESSION: No bilateral lower extremity deep vein thrombosis. 2. Exam Date: 05/05/15 - CTA ABD AORTA & RUNOFF IMPRESSION: 1. MILD ATHEROSCLEROTIC CHANGE. NO EVIDENCE FOR HEMODYNAMICALLY SIGNIFICANT STENOSIS. 2. BILATERAL LOWER EXTREMITY VARICOSE VEINS.. 3. Exam Date: 02/19/15 - VL ANK/BRACHIAL INDICES Right: The posterior tibial ankle brachial index is 1.3. The dorsalis pedis ankle brachial index is 1.53. The digital brachial index is 0.83. The posterior tibial waveform is triphasic. The dorsalis pedis waveform is triphasic. Left: The posterior tibial ankle brachial index is 1.19. The dorsalis pedis ankle brachial index is 1.06. The posterior tibial waveform is triphasic. The dorsalis pedis waveform is biphasic. IMPRESSION: 1. INCREASED ANKLE-BRACHIAL INDICES ON THE RIGHT AND TO A LESSER EXTENT ON THE LEFT, CONSISTENT WITH DECREASED COMPLIANCE IN THE SETTING OF ARTERIOSCLEROSIS. 2. 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 Assess/Plan/Problems-Billing Assessment: 79yof PMHx DM II, HTN, AF on AC, systolic heart failure, JOSHUA presents with DAWKINS, b/l LE edema with suspected heart failure exacerbation. - Patient Problems (1) Osteomyelitis Comment: -s/p bunionette removal and R 5th toe amputation 06/20 -h/o RLE MSSA cellulitis, likely with underlying osteo -ortho following; thank you for recommendations -continue dressing changes, heel WB RLE -ID following; thank you for recommendations -continue cefazolin (2) Acute on chronic systolic heart failure Comment: -pt with HF exacerbation -receiving IV lasix 20 BID; will d/c and transition to torsemide, home spironolactone per cardiology -improvement in LE edema; net total weight loss 22# and negative fluid balance -continue I/O, daily weights (3) Tachy-adnre syndrome Comment: -AF with RVR to bradycardia with up to 9-second pause -patient transfered to ICU, placed on dobutamine; weaned off -PPM placed 07/02 -continue tele (4) Afib Comment: -AF with RVR, rates into 170s overnight 07/03 -tx to ICU for dilt drip, weaned off -now rate controlled -metoprolol increased to 50 daily per cardiology -continue apixaban -continue tele (5) PVD (peripheral vascular disease) Comment: -with venous stasis ulcer -wound management per wound consult -follow up with wound clinic or podiatry at discharge (6) Thrombocytopenia Comment: -improving -continue to monitor (7) Diabetes Comment: -HA1c 05/2019 7.2 -80-160's today -continue lantus 40 -continue lispro ss with FS AC (8) Hypertension Comment: -SBP 90-110s -continue metoprolol -lasix 20 BID; discontinue IV lasix after today -add on torsemide, spironolactone (9) Hyperlipidemia Comment: -continue atorvastatin (10) COPD (chronic obstructive pulmonary disease) Comment: -CXR consistent with COPD in past -dawkisn snot appear to be in exacerbation -not on inhalers outpatient (11) JOSHUA (obstructive sleep apnea) Comment: -non-compliant with CPAP (12) DVT prophylaxis Comment: -Jahaira per PCP, who will follow outpatient (13) Full code status Status and Disposition: Observation. Discharge when stable. Critical care time spent: 40 minutes
[2019-07-05] MEDS: Atorvastatin* 20 MG TAB PO SCH (16:49)
[2019-07-06] MEDS: ceFAZolin 1 GM ADVAN(*) 1 GM in NS 0.9% 50 ML* 50 ML IVPB SCH ×3 (01:00→17:52)
[2019-07-06] MEDS: Insulin LISPRO* 1 UNITS UNIT SUBCUT SCH ×4 (08:17→21:42)
[2019-07-06] MEDS: Spironolactone TAB* 25 MG PO SCH (09:01)
[2019-07-06] MEDS: Famotidine TAB* 20 MG PO SCH (09:01)
[2019-07-06] MEDS: Torsemide TAB* 20 MG PO SCH (09:01)
[2019-07-06] MEDS: Apixaban* 5 MG TAB PO SCH ×2 (09:01→21:42)
[2019-07-06] MEDS: Multivitamins/Minerals TAB PO SCH (09:01)
[2019-07-06] MEDS: Metoprolol Succinate XL TAB* 50 MG PO SCH (09:02)
[2019-07-06] MEDS: Docusate CAP* 100 MG PO SCH ×2 (09:02→21:42)
[2019-07-06] MEDS: Pregabalin 50 mg CAP (*) PO SCH ×3 (09:02→21:42)
[2019-07-06] MEDS: Insulin GLARGINE(*) 1 UNITS UNIT SUBCUT SCH (09:02)
[2019-07-06] MEDS: Cyanocobalamin TAB* 500 MCG PO SCH (09:02)
[2019-07-06] MEDS: Polyethylene Glycol 3350* 17 GM PACKET PO SCH (09:03)
--- NOTE | 2019-07-06 09:17 | PN ---
Progress Note - Progress Note Date of Service: 07/06/19 SOAP: Subjective: CC: Right foot infection HPI: Ms. Kaufman is a 79 yo female with PMH significant for DM2, peripheral neuropathy , HTN, A fib, cadiomyopathy, JOSHUA, RLS, morbid obesity, uterine cancer, CHF, HLD , chronic venous statsis with venous ulcers on the left leg; who presented to hospital with right foot cellulitis. Denies fever, chills, nausea, vomiting, or diarrhea. Objective: Vital Signs - 8 hr 07/06/19 07/06/19 07/06/19 07:32 08:12 09:02 Temperature 97.1 F Pulse Rate 61 Respiratory 20 17 17 Rate Blood Pressure 116/64 (mmHg) O2 Sat by Pulse 100 Oximetry Physical Exam: General: NAD, laying in bed Neurological: Alert and Oriented HEENT: Moist MM Cardiovascular: Heart rate regular. Bilateral LE edema Respiratory: Lung sounds clear Abdominal: Bowel sounds present; ABD soft, non tender and non distended MSK: No tenderness with palpation of the right ankle Skin: DSG to left LE clean, dry and intact, no surrounding erythema. Incisions to lateral and dorsal aspect of the right foot, lateral aspect with area of dry eschar and dorsal with slight wound dehiscence Microbiology 06/28/19 12:58 Aerobic Blood Culture - Final No Source Provided No Growth Day 5 Anaerobic Blood Culture - Final No Growth Day 5 06/28/19 12:58 Aerobic Blood Culture - Final No Source Provided No Growth Day 5 Anaerobic Blood Culture - Final No Growth Day 5 06/27/19 23:57 Aerobic Blood Culture - Final Blood Venous No Growth Day 5 Anaerobic Blood Culture - Final No Growth Day 5 06/27/19 23:57 Aerobic Blood Culture - Final Blood Venous No Growth Day 5 Anaerobic Blood Culture - Final No Growth Day 5 06/27/19 03:37 Urine Culture - Final Urine 06/29/19 12:00 Nasal Screen MRSA (PCR) - Final Nasal [place] Not Detected Assessment: 1. Right foot cellulitis and underlying chronic osteomyelitis. Wound culture from 06/18/19 with staph aureus. S/P right 5th toe amputation on 06/20/19 for infection. Continued improvement in edema, and erythema resolved. No growth in blood cultures to date. Afebrile and no leukocytosis. 2. Chronic venous insufficiency. Known venous stasis ulcers to the left lower extremity. 3. DM2 with peripheral neuropathy. 4. Morbid obesity. BMI 52.5 5. Tachy-andre syndrome. S/P pacemaker placement. Plan: Continue Ancef 1 gm IV Q8 hours, day 9 of ABX. Will need a prolonged course of IV ABX in the setting of underlying osteomyelitis. Plan for home infusions vs [facility]. Will attempt to get culture results and surgical pathology results from [place].
--- NOTE | 2019-07-06 09:37 | PN ---
Progress Note - Progress Note Date of Service: 07/06/19 SOAP: Subjective: []Pt seen at bedside. She feels well today. No R foot pain. No fevers, chills, nausea or diarrhea Objective: []Gen: A&Ox3, NAD at rest RLE: Dressing CDI, No erythema surrounding. No feeling to foot due to neuropathy. Vital Signs Temp 97.1 F 07/06/19 08:12 Pulse 61 07/06/19 08:12 Resp 17 07/06/19 09:02 BP 116/64 07/06/19 08:12 Pulse Ox 100 07/06/19 08:12 Intake & Output 07/05/19 07/06/19 07/06/19 18:59 06:59 18:59 Intake Total 240 360 Output Total 1750 2950 Balance -1510 -2950 360 Weight 315 lb 4.8 oz 312 lb 8 oz Intake: Oral 240 360 Output: Vasquez 1750 2950 Assessment: Right foot cellulitis improving, mild wound dehiscence Plan: Continue with daily betadine wet-to-dry dressing changes IV abx per ID Heel WB on right foot with post op shoe over dressing Ortho to continue to follow
--- NOTE | 2019-07-06 11:39 | PN ---
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,anemia - breathing comfortably at rest - remains volume overloaded, diuresing well - awaiting rehab placement - tele rate controlled afib/v-pace Medications Active Medications: Acetaminophen (Tylenol Tab*) 650 mg PO Q4H PRN PRN Reason: MILD PAIN or TEMP > 100.4 Last Admin: 07/03/19 10:13 Dose: 650 mg Albuterol (Ventolin 2.5 Mg/3 Ml Neb.Luba*) 2.5 mg INH [id number] AWAKE PRN PRN Reason: sob/wheezing Last Admin: 07/04/19 10:37 Dose: 2.5 mg Albuterol (Ventolin Hfa Inhaler*) 2 puff INH Q4H PRN PRN Reason: SHORTNESS OF BREATH Apixaban (Eliquis*) 5 mg PO BID [facility] Last Admin: 07/06/19 09:01 Dose: 5 mg Atorvastatin Calcium (Lipitor*) 20 mg PO QPM [facility] Last Admin: 07/05/19 16:49 Dose: 20 mg Bisacodyl (Dulcolax Supp*) 10 mg [place] DAILY PRN PRN Reason: CONSTIPATION Cyanocobalamin (Vitamin B12 Tab*) 1,000 mcg PO DAILY [facility] Last Admin: 07/06/19 09:02 Dose: 1,000 mcg Dextrose (D50w Syringe 50 Ml*) 25 gm IV PUSH .FOR FS < 60 - SS PRN PRN Reason: FS < 60 Docusate Sodium (Colace Cap*) 100 mg PO BID [facility] Last Admin: 07/06/19 09:02 Dose: 100 mg Famotidine (Pepcid Tab*) 20 mg PO DAILY [facility] Last Admin: 07/06/19 09:01 Dose: 20 mg Cefazolin Sodium 1 gm/ Sodium (Chloride) 50 mls @ 200 mls/hr IVPB Q8H [facility] Last Admin: 07/06/19 09:01 Dose: 200 mls/hr Insulin Glargine (Lantus(*)) 40 units SUBCUT Q24H [facility] Last Admin: 07/06/19 09:02 Dose: 40 units Insulin Human Lispro (Humalog*) 0 units SUBCUT ACHS [facility]; Protocol Last Admin: 07/06/19 08:17 Dose: Not Given Lorazepam (Ativan Inj*) 0.5 mg IV PUSH Q6H PRN PRN Reason: ANXIETY Last Admin: 07/04/19 16:10 Dose: 0.5 mg Metoprolol Succinate (Toprol Xl Tab*) 50 mg PO DAILY [facility] Last Admin: 07/06/19 09:02 Dose: 50 mg Miscellaneous (Ativan Pyxis Connors) 1 ea N/A .ATIVAN IV CONNORS PRN PRN Reason: PYXIS CONNORS Multivitamins/Minerals (Theragran/Minerals Tab*) 1 tab PO DAILY [facility] Last Admin: 07/06/19 09:01 Dose: 1 tab Oxycodone/Acetaminophen (Percocet 5/325 Tab*) 1 tab PO Q4H PRN PRN Reason: PAIN - MODERATE Last Admin: 07/04/19 17:24 Dose: 1 tab Polyethylene Glycol/Electrolytes (Miralax (17 Gm Dose Deandre)) 17 gm PO DAILY [facility] Last Admin: 07/06/19 09:03 Dose: 17 gm Pramipexole Dihydrochloride (Mirapex Tab*) 1 mg PO BEDTIME [facility] Last Admin: 07/05/19 21:13 Dose: 1 mg Pregabalin (Lyrica 50 Mg Cap (*)) 50 mg PO TID [facility] Last Admin: 07/06/19 09:02 Dose: 50 mg Spironolactone (Aldactone Tab*) 25 mg PO DAILY [facility] Last Admin: 07/06/19 09:01 Dose: 25 mg Torsemide (Demadex*) 40 mg PO DAILY [facility] Last Admin: 07/06/19 09:01 Dose: 40 mg Objective Vital Signs: Temp Pulse Resp BP Pulse Ox 97.1 F 61 17 116/64 100 07/06/19 08:12 07/06/19 08:12 07/06/19 09:02 07/06/19 08:12 07/06/19 08:12 Oxygen Devices in Use Now: Nasal Cannula Appearance: nad, pleasant Eyes: No Scleral Icterus, PERRLA Ears/Nose/Mouth/Throat: NL Teeth, Lips, Gums, Clear Oropharnyx, Mucous Membranes Moist Neck: Trachea Midline, - - uncertain jvp Respiratory: Symmetrical Chest Expansion and Respiratory Effort, - - basilar crackles Cardiovascular: - - irregularly irregular no significant murmur, pacemaker alex intact. echymosis superficial no hematoma Extremities: No Edema, - - 1+ edema b/l Skin: - - left anterior device site non tender to palpation, no pocket hematoma. no oozing. edged well approximated with alex. Neurological: Alert and Oriented x 3 Lines/Tubes/Other Access: Clean, Dry and Intact Vasquez, Clean, Dry and Intact Peripheral IV Laboratory Results: 07/04/19 21:06 07/04/19 21:06 INR (Anticoag Therapy) 1.68 (0.82-1.09) H 07/02/19 07:20 Total Bilirubin 2.00 mg/dL (0.2-1.0) H 06/29/19 12:55 AST 27 U/L (13-39) 06/29/19 12:55 ALT 11 U/L (7-52) 06/29/19 12:55 Alkaline Phosphatase 215 U/L (34-104) H 06/29/19 12:55 B-Natriuretic Peptide 382 pg/mL (<=100) H 06/29/19 12:55 Total Protein 6.5 g/dL (6.4-8.9) 06/29/19 12:55 Albumin 2.9 g/dL (3.2-5.2) L 06/29/19 12:55 Globulin 3.6 g/dL (2-4) 06/29/19 12:55 Albumin/Globulin Ratio 0.8 (1-3) L 06/29/19 12:55 TSH 6.08 mcIU/mL (0.34-5.60) H 06/29/19 12:55 06/27/19 15:58 Troponin I 0.02 Diagnostic Imaging: Transthoracic Echocardiogram Study Date: 06/28/2019 Conclusions Summary: - Impressions: The study is unchanged since the study of January 2018. - Left ventricle: The cavity size is mildly dilated. Wall thickness is mildly increased. Systolic function is mildly reduced. The estimated ejection fraction is 40-45%. - Regional wall motion abnormality: Mild hypokinesis of the basal-mid anteroseptal and mid inferoseptal myocardium. - Right ventricle: The cavity size is moderately dilated. Wall thickness is mildly increased. Systolic function is moderately reduced. Systolic pressure is moderately increased. - Ventricular septum: There is diastolic flattening and systolic flattening. - Left atrium: The atrium is severely dilated. - Right atrium: The atrium is moderately to severely dilated. Patient Name: KENNEDI LION Medical Record#: [id number] Ordering Physician: Prakash Manrique MD Acct.#: [id number] : 1940 Age: 79 Sex: F Location: [address] [place] [address] - MEDICAL/TELEMETRY Exam Date: 07/03/19 0800 ADM Status: ADM IN Order Information: CHEST PA & LAT 2 VWS Accession Number: [id number] CPT: 08069 INDICATION: Status post device implant. COMPARISON: Comparison is made with a prior study from June 27, 2019. TECHNIQUE: AP and lateral views of the chest were obtained. FINDINGS: The heart is mildly enlarged. The patient is status post placement of a transvenous pacemaker. The lungs are underinflated. There is bilateral increased density likely secondary to atelectasis. No pneumothorax is seen. IMPRESSION: STATUS POST PLACEMENT OF A TRANSVENOUS PACEMAKER, NO EVIDENCE FOR PNEUMOTHORAX. Assessment/Plan - Continue current medications as above. - suspect once medically stabilized rates will normalize had been ok on 25 mg for outpatient holter in past. rates may increase again as digoxin wears out of system can increase toprol dose - Has wound checked scheduled 07/10/2019 for staple removal - will sign off, please reconsult as needed
[2019-07-06] MEDS: Acetaminophen TAB* 325 MG PO PRN (12:10)
--- NOTE | 2019-07-06 15:44 | PN ---
Subjective Date of Service: 07/06/19 Interval History: Ms. Kaufman states she is feeling well today. She reports no dizziness today. She jose l CP, palpitations. She does c/o infrequent cough that is worse with laying flat, PND. She c/o LLE pain at foot rated at 4/10; no pain at surgical RLE. No other complaints today. Family History: Unchanged from Admission Social History: Unchanged from Admission Past Medical History: Unchanged from Admission Objective Active Medications: Acetaminophen (Tylenol Tab*) 650 mg PO Q4H PRN PRN Reason: MILD PAIN or TEMP > 100.4 Last Admin: 07/06/19 12:10 Dose: 650 mg Albuterol (Ventolin 2.5 Mg/3 Ml Neb.Luba*) 2.5 mg INH [id number] AWAKE PRN PRN Reason: sob/wheezing Last Admin: 07/04/19 10:37 Dose: 2.5 mg Albuterol (Ventolin Hfa Inhaler*) 2 puff INH Q4H PRN PRN Reason: SHORTNESS OF BREATH Apixaban (Eliquis*) 5 mg PO BID [facility] Last Admin: 07/06/19 09:01 Dose: 5 mg Atorvastatin Calcium (Lipitor*) 20 mg PO QPM [facility] Last Admin: 07/05/19 16:49 Dose: 20 mg Bisacodyl (Dulcolax Supp*) 10 mg [place] DAILY PRN PRN Reason: CONSTIPATION Cyanocobalamin (Vitamin B12 Tab*) 1,000 mcg PO DAILY [facility] Last Admin: 07/06/19 09:02 Dose: 1,000 mcg Dextrose (D50w Syringe 50 Ml*) 25 gm IV PUSH .FOR FS < 60 - SS PRN PRN Reason: FS < 60 Docusate Sodium (Colace Cap*) 100 mg PO BID [facility] Last Admin: 07/06/19 09:02 Dose: 100 mg Famotidine (Pepcid Tab*) 20 mg PO DAILY [facility] Last Admin: 07/06/19 09:01 Dose: 20 mg Cefazolin Sodium 1 gm/ Sodium (Chloride) 50 mls @ 200 mls/hr IVPB Q8H [facility] Last Admin: 07/06/19 09:01 Dose: 200 mls/hr Insulin Glargine (Lantus(*)) 40 units SUBCUT Q24H [facility] Last Admin: 07/06/19 09:02 Dose: 40 units Insulin Human Lispro (Humalog*) 0 units SUBCUT ACHS [facility]; Protocol Last Admin: 07/06/19 12:10 Dose: 2 units Lorazepam (Ativan Inj*) 0.5 mg IV PUSH Q6H PRN PRN Reason: ANXIETY Last Admin: 07/04/19 16:10 Dose: 0.5 mg Metoprolol Succinate (Toprol Xl Tab*) 50 mg PO DAILY [facility] Last Admin: 07/06/19 09:02 Dose: 50 mg Miscellaneous (Ativan Pyxis Connors) 1 ea N/A .ATIVAN IV CONNORS PRN PRN Reason: PYXIS CONNORS Multivitamins/Minerals (Theragran/Minerals Tab*) 1 tab PO DAILY [facility] Last Admin: 07/06/19 09:01 Dose: 1 tab Oxycodone/Acetaminophen (Percocet 5/325 Tab*) 1 tab PO Q4H PRN PRN Reason: PAIN - MODERATE Last Admin: 07/04/19 17:24 Dose: 1 tab Polyethylene Glycol/Electrolytes (Miralax (17 Gm Dose Deandre)) 17 gm PO DAILY [facility] Last Admin: 07/06/19 09:03 Dose: 17 gm Pramipexole Dihydrochloride (Mirapex Tab*) 1 mg PO BEDTIME [facility] Last Admin: 07/05/19 21:13 Dose: 1 mg Pregabalin (Lyrica 50 Mg Cap (*)) 50 mg PO TID [facility] Last Admin: 07/06/19 14:43 Dose: 50 mg Spironolactone (Aldactone Tab*) 25 mg PO DAILY [facility] Last Admin: 07/06/19 09:01 Dose: 25 mg Torsemide (Demadex*) 40 mg PO DAILY [facility] Last Admin: 07/06/19 09:01 Dose: 40 mg Vital Signs: Temp Pulse Resp BP Pulse Ox 97.2 F 59 20 104/46 100 07/06/19 11:46 07/06/19 11:46 07/06/19 14:43 07/06/19 11:46 07/06/19 11:46 Oxygen Devices in Use Now: Nasal Cannula Appearance: Ms. Kaufman is an obese, elderly white woman who is sitting up in her chair with LE at floor. She is breathing comfortably on supplemental O2 and appears to be in no acute distress. Eyes: No Scleral Icterus, PERRLA Ears/Nose/Mouth/Throat: NL Teeth, Lips, Gums, Clear Oropharnyx, Mucous Membranes Moist Neck: NL Appearance and Movements; NL JVP, Trachea Midline Respiratory: Symmetrical Chest Expansion and Respiratory Effort, - - course bibasilar rales Cardiovascular: NL Sounds; No Murmurs; No JVD - , RRR - , - - 1+ b/l LE edema Abdominal: NL Sounds; No Tenderness; No Distention, No Hepatosplenomegaly Extremities: No Edema, No Clubbing, Cyanosis Neurological: Alert and Oriented x 3 Result Diagrams: 07/04/19 21:06 07/04/19 21:06 Additional Lab and Data: Above labs were pulled into the note, when the note was edited prior to signing. See below for labs from day of consultation. Laboratory Tests 06/29/19 07/03/19 07/03/19 12:55 06:44 06:44 WBC 6.0 Hgb 9.6 L Hct 30 L Plt Count 100 L Sodium 137 Potassium 4.0 Chloride 103 Carbon Dioxide 27 BUN 25 H Creatinine 0.86 Glucose 108 H Total Protein 6.5 Albumin 2.9 L Microbiology and Other Data: Microbiology 06/27/19 23:57 Aerobic Blood Culture - Preliminary Blood Venous No Growth Day 1 Anaerobic Blood Culture - Preliminary No Growth Day 1 06/27/19 23:57 Aerobic Blood Culture - Preliminary Blood Venous No Growth Day 1 Anaerobic Blood Culture - Preliminary No Growth Day 1 Diagnostic Imagin. Exam Date: 06/29/19 1517 - VL LOWER EXT VEINS BILATERAL IMPRESSION: No bilateral lower extremity deep vein thrombosis. 2. Exam Date: 05/05/15 - CTA ABD AORTA & RUNOFF IMPRESSION: 1. MILD ATHEROSCLEROTIC CHANGE. NO EVIDENCE FOR HEMODYNAMICALLY SIGNIFICANT STENOSIS. 2. BILATERAL LOWER EXTREMITY VARICOSE VEINS.. 3. Exam Date: 02/19/15 - VL ANK/BRACHIAL INDICES Right: The posterior tibial ankle brachial index is 1.3. The dorsalis pedis ankle brachial index is 1.53. The digital brachial index is 0.83. The posterior tibial waveform is triphasic. The dorsalis pedis waveform is triphasic. Left: The posterior tibial ankle brachial index is 1.19. The dorsalis pedis ankle brachial index is 1.06. The posterior tibial waveform is triphasic. The dorsalis pedis waveform is biphasic. IMPRESSION: 1. INCREASED ANKLE-BRACHIAL INDICES ON THE RIGHT AND TO A LESSER EXTENT ON THE LEFT, CONSISTENT WITH DECREASED COMPLIANCE IN THE SETTING OF ARTERIOSCLEROSIS. 2. 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 Assess/Plan/Problems-Billing Assessment: 79yof PMHx DM II, HTN, AF on AC, systolic heart failure, JOSHUA presents with DAWKINS, b/l LE edema with suspected heart failure exacerbation. - Patient Problems (1) Osteomyelitis Comment: -s/p bunionette removal and R 5th toe amputation 06/20 -h/o RLE MSSA cellulitis, likely with underlying osteo -ortho following; thank you for recommendations -continue dressing changes, heel WB RLE with post-op shoe over dressing -ID following; thank you for recommendations -continue cefazolin; will need extended course of antibiotics (2) Acute on chronic systolic heart failure Comment: -pt with HF exacerbation -initially received IV lasix -now on torsemide, home spironolactone per cardiology -improvement in LE edema; net total weight loss 25# and negative fluid balance -continue I/O, daily weights (3) Tachy-andre syndrome Comment: -AF with RVR to bradycardia with up to 9-second pause -patient transfered to ICU, placed on dobutamine; weaned off -PPM placed 07/02 -continue tele (4) Afib Comment: -AF with RVR, rates into 170s overnight 07/03 -tx to ICU for dilt drip, weaned off -now rate controlled -metoprolol increased to 50 daily per cardiology -continue apixaban -continue tele (5) PVD (peripheral vascular disease) Comment: -with venous stasis ulcer -wound management per wound consult -follow up with wound clinic or podiatry at discharge (6) Thrombocytopenia Comment: -improving -continue to monitor (7) Diabetes Comment: -HA1c 05/2019 7.2 -100-160's today -continue lantus 40 -continue lispro ss with FS AC (8) Hypertension Comment: -SBP 100-110s -continue metoprolol -continue torsemide, spironolactone (9) Hyperlipidemia Comment: -continue atorvastatin (10) COPD (chronic obstructive pulmonary disease) Comment: -CXR consistent with COPD in past -dawkins snot appear to be in exacerbation -not on inhalers outpatient (11) JOSHUA (obstructive sleep apnea) Comment: -non-compliant with CPAP (12) DVT prophylaxis Comment: -Eliquis per PCP, who will follow outpatient (13) Full code status Status and Disposition: Observation. Discharge when stable. Critical care time spent: 40 minutes
[2019-07-06] MEDS: Atorvastatin* 20 MG TAB PO SCH (17:52)
[2019-07-06] MEDS: Pramipexole TAB* 0.5 MG PO SCH (21:43)
[2019-07-07] MEDS: ceFAZolin 1 GM ADVAN(*) 1 GM in NS 0.9% 50 ML* 50 ML IVPB SCH ×3 (01:15→17:21)
[2019-07-07 05:52] LABS: ABS Eosinophils 0.2 10^3/ul (0-0.6); ABS Lymphocytes 0.6 10^3/ul (1.0-4.8); ABS Monocytes 0.4 10^3/ul (0-0.8); ABS Neutrophils 3.5 10^3/ul (1.5-7.7); Eosinophil % 4.7 %; Hematocrit 31 % (35-47); Hemoglobin 9.7 g/dL (12.0-16.0); Lymphocyte % 12.2 %; Mean Corpuscular HGB Conc 32 g/dL (31-36); Mean Corpuscular Hemoglobin 27 pg (27-31); Mean Corpuscular Volume 84 fL (80-97); Mean Platelet Volume 7.3 fL (7.4-10.4); Nucleated Red Blood Cells % 0.6; Platelet Count 172 10^3/uL (150-450); Red Blood Count 3.67 10^6 /uL (3.70-4.87); Red Cell Distribution Width 22 % (10-15); White Blood Count 4.7 10^3/uL (3.5-10.8)
[2019-07-07 06:17] LABS: Calcium 8.4 mg/dL (8.6-10.3); Magnesium 1.9 mg/dL (1.9-2.7); Potassium 3.6 mmol/L (3.5-5.0)
[2019-07-07 06:22] LABS: BUN/Creatinine Ratio 35.2 (8-20); EGFR African American 96.3 (>60); EGFR Non-African American 79.6 (>60)
[2019-07-07] MEDS: Torsemide TAB* 20 MG PO SCH (08:34)
[2019-07-07] MEDS: Apixaban* 5 MG TAB PO SCH ×2 (08:34→20:59)
[2019-07-07] MEDS: Metoprolol Succinate XL TAB* 50 MG PO SCH (08:34)
[2019-07-07] MEDS: Pregabalin 50 mg CAP (*) PO SCH ×3 (08:34→21:00)
[2019-07-07] MEDS: Famotidine TAB* 20 MG PO SCH (08:35)
[2019-07-07] MEDS: Docusate CAP* 100 MG PO SCH ×2 (08:35→21:00)
[2019-07-07] MEDS: Spironolactone TAB* 25 MG PO SCH (08:35)
[2019-07-07] MEDS: Insulin LISPRO* 1 UNITS UNIT SUBCUT SCH ×4 (08:35→21:00)
[2019-07-07] MEDS: Polyethylene Glycol 3350* 17 GM PACKET PO SCH (08:35)
[2019-07-07] MEDS: Cyanocobalamin TAB* 500 MCG PO SCH (08:35)
[2019-07-07] MEDS: Multivitamins/Minerals TAB PO SCH (08:35)
[2019-07-07] MEDS: Insulin GLARGINE(*) 1 UNITS UNIT SUBCUT SCH (08:36)
--- NOTE | 2019-07-07 12:36 | PN ---
Progress Note - Progress Note Date of Service: 07/07/19 Note: Patient seated in joint chair eating lunch. She denies CP, SOB or calf pain. She is heal WB. She denies fever or chills. She has minimal pain but the area of concern is tender if palpated. Her dressing to the LLE is C/D/I. Dressing is taken down to reveal to quarter size areas of ulceration with scant serosaguinous drainage noted. Skin is otherwise intact, mildly erythematous and edematous. She moves the digits of the foot. Sensation absent at baseline due to neuropathy. Continue daily betadine wet-to-dry dressing changes and IV abx per ID. Ok to heel WB on right foot with post op shoe over dressing. Ortho will continue to follow.
[2019-07-07] MEDS: LORazepam INJ* 2 MG/ML 1 ML VIAL IV PUSH PRN (17:16)
[2019-07-07] MEDS: Atorvastatin* 20 MG TAB PO SCH (17:21)
--- NOTE | 2019-07-07 17:27 | PN ---
Subjective Date of Service: 07/07/19 Interval History: Ms. Kaufman denies SOB, cough. She is off supplemental oxygen with no respiratory complaints. She states that b/l LE are still "a little swollen," but reports they are back to baseline. No other complaints today. Family History: Unchanged from Admission Social History: Unchanged from Admission Past Medical History: Unchanged from Admission Objective Active Medications: Acetaminophen (Tylenol Tab*) 650 mg PO Q4H PRN PRN Reason: MILD PAIN or TEMP > 100.4 Last Admin: 07/06/19 12:10 Dose: 650 mg Albuterol (Ventolin 2.5 Mg/3 Ml Neb.Luba*) 2.5 mg INH [id number] AWAKE PRN PRN Reason: sob/wheezing Last Admin: 07/04/19 10:37 Dose: 2.5 mg Albuterol (Ventolin Hfa Inhaler*) 2 puff INH Q4H PRN PRN Reason: SHORTNESS OF BREATH Apixaban (Eliquis*) 5 mg PO BID [facility] Last Admin: 07/07/19 08:34 Dose: 5 mg Atorvastatin Calcium (Lipitor*) 20 mg PO QPM [facility] Last Admin: 07/06/19 17:52 Dose: 20 mg Bisacodyl (Dulcolax Supp*) 10 mg [place] DAILY PRN PRN Reason: CONSTIPATION Cyanocobalamin (Vitamin B12 Tab*) 1,000 mcg PO DAILY [facility] Last Admin: 07/07/19 08:35 Dose: 1,000 mcg Dextrose (D50w Syringe 50 Ml*) 25 gm IV PUSH .FOR FS < 60 - SS PRN PRN Reason: FS < 60 Docusate Sodium (Colace Cap*) 100 mg PO BID [facility] Last Admin: 07/07/19 08:35 Dose: 100 mg Famotidine (Pepcid Tab*) 20 mg PO DAILY [facility] Last Admin: 07/07/19 08:35 Dose: 20 mg Cefazolin Sodium 1 gm/ Sodium (Chloride) 50 mls @ 200 mls/hr IVPB Q8H [facility] Last Admin: 07/07/19 08:39 Dose: 200 mls/hr Insulin Glargine (Lantus(*)) 40 units SUBCUT Q24H [facility] Last Admin: 07/07/19 08:36 Dose: 40 units Insulin Human Lispro (Humalog*) 0 units SUBCUT ACHS [facility]; Protocol Last Admin: 07/07/19 12:10 Dose: 2 units Lorazepam (Ativan Inj*) 0.5 mg IV PUSH Q6H PRN PRN Reason: ANXIETY Last Admin: 07/04/19 16:10 Dose: 0.5 mg Metoprolol Succinate (Toprol Xl Tab*) 50 mg PO DAILY [facility] Last Admin: 07/07/19 08:34 Dose: 50 mg Miscellaneous (Ativan Pyxis Connors) 1 ea N/A .ATIVAN IV CONNORS PRN PRN Reason: PYXIS CONNORS Multivitamins/Minerals (Theragran/Minerals Tab*) 1 tab PO DAILY [facility] Last Admin: 07/07/19 08:35 Dose: 1 tab Oxycodone/Acetaminophen (Percocet 5/325 Tab*) 1 tab PO Q4H PRN PRN Reason: PAIN - MODERATE Last Admin: 07/04/19 17:24 Dose: 1 tab Polyethylene Glycol/Electrolytes (Miralax (17 Gm Dose Deandre)) 17 gm PO DAILY [facility] Last Admin: 07/07/19 08:35 Dose: 17 gm Pramipexole Dihydrochloride (Mirapex Tab*) 1 mg PO BEDTIME [facility] Last Admin: 07/06/19 21:43 Dose: 1 mg Pregabalin (Lyrica 50 Mg Cap (*)) 50 mg PO TID [facility] Last Admin: 07/07/19 15:01 Dose: 50 mg Spironolactone (Aldactone Tab*) 25 mg PO DAILY [facility] Last Admin: 07/07/19 08:35 Dose: 25 mg Torsemide (Demadex*) 40 mg PO DAILY [facility] Last Admin: 07/07/19 08:34 Dose: 40 mg Vital Signs: Temp Pulse Resp BP Pulse Ox 97 F 65 16 109/50 93 07/07/19 15:15 07/07/19 15:15 07/07/19 15:15 07/07/19 15:15 07/07/19 15:15 Oxygen Devices in Use Now: Nasal Cannula Appearance: Ms. Kaufman is an obese elderly white female who is up in chair with LE at floor. She appears comfortable and in no acute distress. Eyes: No Scleral Icterus, PERRLA Ears/Nose/Mouth/Throat: NL Teeth, Lips, Gums, Clear Oropharnyx, Mucous Membranes Moist Neck: NL Appearance and Movements; NL JVP, Trachea Midline Respiratory: Symmetrical Chest Expansion and Respiratory Effort, Clear to Auscultation Cardiovascular: NL Sounds; No Murmurs; No JVD, RRR, - - 1+ b/l LE edema Abdominal: NL Sounds; No Tenderness; No Distention, No Hepatosplenomegaly Extremities: No Edema, No Clubbing, Cyanosis Neurological: Alert and Oriented x 3 Result Diagrams: 07/07/19 05:25 07/07/19 05:25 Additional Lab and Data: Above labs were pulled into the note, when the note was edited prior to signing. See below for labs from day of consultation. Laboratory Tests 06/29/19 07/03/19 07/03/19 12:55 06:44 06:44 WBC 6.0 Hgb 9.6 L Hct 30 L Plt Count 100 L Sodium 137 Potassium 4.0 Chloride 103 Carbon Dioxide 27 BUN 25 H Creatinine 0.86 Glucose 108 H Total Protein 6.5 Albumin 2.9 L Microbiology and Other Data: Microbiology 06/27/19 23:57 Aerobic Blood Culture - Preliminary Blood Venous No Growth Day 1 Anaerobic Blood Culture - Preliminary No Growth Day 1 06/27/19 23:57 Aerobic Blood Culture - Preliminary Blood Venous No Growth Day 1 Anaerobic Blood Culture - Preliminary No Growth Day 1 Diagnostic Imagin. Exam Date: 06/29/19 1517 - VL LOWER EXT VEINS BILATERAL IMPRESSION: No bilateral lower extremity deep vein thrombosis. 2. Exam Date: 05/05/15 - CTA ABD AORTA & RUNOFF IMPRESSION: 1. MILD ATHEROSCLEROTIC CHANGE. NO EVIDENCE FOR HEMODYNAMICALLY SIGNIFICANT STENOSIS. 2. BILATERAL LOWER EXTREMITY VARICOSE VEINS.. 3. Exam Date: 02/19/15 - VL ANK/BRACHIAL INDICES Right: The posterior tibial ankle brachial index is 1.3. The dorsalis pedis ankle brachial index is 1.53. The digital brachial index is 0.83. The posterior tibial waveform is triphasic. The dorsalis pedis waveform is triphasic. Left: The posterior tibial ankle brachial index is 1.19. The dorsalis pedis ankle brachial index is 1.06. The posterior tibial waveform is triphasic. The dorsalis pedis waveform is biphasic. IMPRESSION: 1. INCREASED ANKLE-BRACHIAL INDICES ON THE RIGHT AND TO A LESSER EXTENT ON THE LEFT, CONSISTENT WITH DECREASED COMPLIANCE IN THE SETTING OF ARTERIOSCLEROSIS. 2. 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 Assess/Plan/Problems-Billing Assessment: 79yof PMHx DM II, HTN, AF on AC, systolic heart failure, JOSHUA presents with DAWKINS, b/l LE edema with suspected heart failure exacerbation. - Patient Problems (1) Osteomyelitis Comment: -s/p bunionette removal and R 5th toe amputation 06/20 -h/o RLE MSSA cellulitis, likely with underlying osteo -ortho following; thank you for recommendations -continue dressing changes, heel WB RLE with post-op shoe over dressing -ID following; thank you for recommendations -continue cefazolin; will need extended course of antibiotics (2) Acute on chronic systolic heart failure Comment: -pt with HF exacerbation -initially received IV lasix -now on torsemide, home spironolactone per cardiology -improvement in LE edema; net total weight loss 25# and negative fluid balance -continue I/O, daily weights (3) Tachy-andre syndrome Comment: -AF with RVR to bradycardia with up to 9-second pause -patient transfered to ICU, placed on dobutamine; weaned off -PPM placed 07/02 -continue tele (4) Afib Comment: -AF with RVR, rates into 170s overnight 07/03 -tx to ICU for dilt drip, weaned off -now rate controlled -metoprolol increased to 50 daily per cardiology -continue apixaban -continue tele (5) PVD (peripheral vascular disease) Comment: -with venous stasis ulcer -wound management per wound consult -follow up with wound clinic or podiatry at discharge (6) Thrombocytopenia Comment: -improving -continue to monitor (7) Diabetes Comment: -HA1c 05/2019 7.2 -100-160's today -continue lantus 40 -continue lispro ss with FS AC (8) Hypertension Comment: -SBP 100-110s -continue metoprolol -continue torsemide, spironolactone (9) Hyperlipidemia Comment: -continue atorvastatin (10) COPD (chronic obstructive pulmonary disease) Comment: -CXR consistent with COPD in past -dawkins snot appear to be in exacerbation -not on inhalers outpatient (11) JOSHUA (obstructive sleep apnea) Comment: -non-compliant with CPAP (12) DVT prophylaxis Comment: -Eliquis per PCP, who will follow outpatient (13) Full code status Status and Disposition: Inpatient. Plan for d/c to [facility].
[2019-07-07] MEDS: Pramipexole TAB* 0.5 MG PO SCH (20:59)
[2019-07-08] MEDS: ceFAZolin 1 GM ADVAN(*) 1 GM in NS 0.9% 50 ML* 50 ML IVPB SCH ×3 (00:42→16:45)
[2019-07-08] MEDS: Insulin LISPRO* 1 UNITS UNIT SUBCUT SCH ×4 (08:09→21:13)
[2019-07-08] MEDS: Multivitamins/Minerals TAB PO SCH (08:51)
[2019-07-08] MEDS: Cyanocobalamin TAB* 500 MCG PO SCH (08:51)
[2019-07-08] MEDS: Famotidine TAB* 20 MG PO SCH (08:51)
[2019-07-08] MEDS: Torsemide TAB* 20 MG PO SCH (08:52)
[2019-07-08] MEDS: Metoprolol Succinate XL TAB* 50 MG PO SCH (08:52)
[2019-07-08] MEDS: Apixaban* 5 MG TAB PO SCH ×2 (08:52→21:13)
[2019-07-08] MEDS: Pregabalin 50 mg CAP (*) PO SCH ×3 (09:01→21:12)
[2019-07-08] MEDS: Polyethylene Glycol 3350* 17 GM PACKET PO SCH (09:01)
[2019-07-08] MEDS: Spironolactone TAB* 25 MG PO SCH (09:02)
[2019-07-08] MEDS: Docusate CAP* 100 MG PO SCH ×2 (09:02→21:13)
[2019-07-08] MEDS: Insulin GLARGINE(*) 1 UNITS UNIT SUBCUT SCH (09:02)
--- NOTE | 2019-07-08 10:13 | PN ---
Subjective Date of Service: 07/08/19 Interval History: Ms. Kaufman states she feels tired today. She denies confusion. She appears mildly confused; she thought she was in [place], but she is easily redirected. Nursing report confusion at night that typically resolves in daytime. Family History: Unchanged from Admission Social History: Unchanged from Admission Past Medical History: Unchanged from Admission Objective Active Medications: Acetaminophen (Tylenol Tab*) 650 mg PO Q4H PRN PRN Reason: MILD PAIN or TEMP > 100.4 Last Admin: 07/06/19 12:10 Dose: 650 mg Albuterol (Ventolin 2.5 Mg/3 Ml Neb.Luba*) 2.5 mg INH [id number] AWAKE PRN PRN Reason: sob/wheezing Last Admin: 07/04/19 10:37 Dose: 2.5 mg Albuterol (Ventolin Hfa Inhaler*) 2 puff INH Q4H PRN PRN Reason: SHORTNESS OF BREATH Apixaban (Eliquis*) 5 mg PO BID [facility] Last Admin: 07/08/19 08:52 Dose: 5 mg Atorvastatin Calcium (Lipitor*) 20 mg PO QPM [facility] Last Admin: 07/07/19 17:21 Dose: 20 mg Bisacodyl (Dulcolax Supp*) 10 mg [place] DAILY PRN PRN Reason: CONSTIPATION Cyanocobalamin (Vitamin B12 Tab*) 1,000 mcg PO DAILY [facility] Last Admin: 07/08/19 08:51 Dose: 1,000 mcg Dextrose (D50w Syringe 50 Ml*) 25 gm IV PUSH .FOR FS < 60 - SS PRN PRN Reason: FS < 60 Docusate Sodium (Colace Cap*) 100 mg PO BID [facility] Last Admin: 07/08/19 09:02 Dose: 100 mg Famotidine (Pepcid Tab*) 20 mg PO DAILY [facility] Last Admin: 07/08/19 08:51 Dose: 20 mg Cefazolin Sodium 1 gm/ Sodium (Chloride) 50 mls @ 200 mls/hr IVPB Q8H [facility] Last Admin: 07/08/19 09:34 Dose: 200 mls/hr Insulin Glargine (Lantus(*)) 40 units SUBCUT Q24H [facility] Last Admin: 07/08/19 09:02 Dose: 40 units Insulin Human Lispro (Humalog*) 0 units SUBCUT ACHS [facility]; Protocol Last Admin: 07/08/19 08:09 Dose: Not Given Lorazepam (Ativan Inj*) 0.5 mg IV PUSH Q6H PRN PRN Reason: ANXIETY Last Admin: 07/07/19 17:16 Dose: 0.5 mg Metoprolol Succinate (Toprol Xl Tab*) 50 mg PO DAILY [facility] Last Admin: 07/08/19 08:52 Dose: 50 mg Miscellaneous (Ativan Pyxis Connors) 1 ea N/A .ATIVAN IV CONNORS PRN PRN Reason: PYXIS CONNORS Multivitamins/Minerals (Theragran/Minerals Tab*) 1 tab PO DAILY [facility] Last Admin: 07/08/19 08:51 Dose: 1 tab Oxycodone/Acetaminophen (Percocet 5/325 Tab*) 1 tab PO Q4H PRN PRN Reason: PAIN - MODERATE Last Admin: 07/04/19 17:24 Dose: 1 tab Polyethylene Glycol/Electrolytes (Miralax (17 Gm Dose Deandre)) 17 gm PO DAILY [facility] Last Admin: 07/08/19 09:01 Dose: 17 gm Pramipexole Dihydrochloride (Mirapex Tab*) 1 mg PO BEDTIME [facility] Last Admin: 07/07/19 20:59 Dose: 1 mg Pregabalin (Lyrica 50 Mg Cap (*)) 50 mg PO TID [facility] Last Admin: 07/08/19 09:01 Dose: Not Given Spironolactone (Aldactone Tab*) 25 mg PO DAILY [facility] Last Admin: 07/08/19 09:02 Dose: 25 mg Torsemide (Demadex*) 40 mg PO DAILY [facility] Last Admin: 07/08/19 08:52 Dose: 40 mg Vital Signs: Temp Pulse Resp BP Pulse Ox 97.5 F 61 20 101/62 92 07/08/19 07:15 07/08/19 07:15 07/08/19 09:01 07/08/19 07:15 07/08/19 07:15 Oxygen Devices in Use Now: Nasal Cannula Appearance: Ms. Kaufman is an obese elderly white female who is sitting up in bed. She appears fatigued and mildly confused at times. No acute distress. Breathing comfortably on room air. Eyes: No Scleral Icterus, PERRLA Ears/Nose/Mouth/Throat: NL Teeth, Lips, Gums, Clear Oropharnyx, Mucous Membranes Moist Neck: NL Appearance and Movements; NL JVP, Trachea Midline Respiratory: Symmetrical Chest Expansion and Respiratory Effort, Clear to Auscultation Cardiovascular: NL Sounds; No Murmurs; No JVD, RRR, - - 1+ b/l LE edema Extremities: No Clubbing, Cyanosis Neurological: - - alert; oriented to person, time; incorrect location, although redirectable Result Diagrams: 07/08/19 10:44 07/07/19 05:25 Additional Lab and Data: Above labs were pulled into the note, when the note was edited prior to signing. See below for labs from day of consultation. Laboratory Tests 06/29/19 07/03/19 07/03/19 12:55 06:44 06:44 WBC 6.0 Hgb 9.6 L Hct 30 L Plt Count 100 L Sodium 137 Potassium 4.0 Chloride 103 Carbon Dioxide 27 BUN 25 H Creatinine 0.86 Glucose 108 H Total Protein 6.5 Albumin 2.9 L Microbiology and Other Data: Microbiology 06/27/19 23:57 Aerobic Blood Culture - Preliminary Blood Venous No Growth Day 1 Anaerobic Blood Culture - Preliminary No Growth Day 1 06/27/19 23:57 Aerobic Blood Culture - Preliminary Blood Venous No Growth Day 1 Anaerobic Blood Culture - Preliminary No Growth Day 1 Diagnostic Imagin. Exam Date: 06/29/19 1517 - VL LOWER EXT VEINS BILATERAL IMPRESSION: No bilateral lower extremity deep vein thrombosis. 2. Exam Date: 05/05/15 - CTA ABD AORTA & RUNOFF IMPRESSION: 1. MILD ATHEROSCLEROTIC CHANGE. NO EVIDENCE FOR HEMODYNAMICALLY SIGNIFICANT STENOSIS. 2. BILATERAL LOWER EXTREMITY VARICOSE VEINS.. 3. Exam Date: 02/19/15 - VL ANK/BRACHIAL INDICES Right: The posterior tibial ankle brachial index is 1.3. The dorsalis pedis ankle brachial index is 1.53. The digital brachial index is 0.83. The posterior tibial waveform is triphasic. The dorsalis pedis waveform is triphasic. Left: The posterior tibial ankle brachial index is 1.19. The dorsalis pedis ankle brachial index is 1.06. The posterior tibial waveform is triphasic. The dorsalis pedis waveform is biphasic. IMPRESSION: 1. INCREASED ANKLE-BRACHIAL INDICES ON THE RIGHT AND TO A LESSER EXTENT ON THE LEFT, CONSISTENT WITH DECREASED COMPLIANCE IN THE SETTING OF ARTERIOSCLEROSIS. 2. 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 Assess/Plan/Problems-Billing Assessment: 79yof PMHx DM II, HTN, AF on AC, systolic heart failure, JOSHUA presents with DAWKINS, b/l LE edema with suspected heart failure exacerbation. - Patient Problems (1) Osteomyelitis Comment: -s/p bunionette removal and R 5th toe amputation 06/20 -h/o RLE MSSA cellulitis, likely with underlying osteo -ortho following; thank you for recommendations -continue dressing changes, heel WB RLE with post-op shoe over dressing -ID following; thank you for recommendations -continue cefazolin; will need extended course of antibiotics -ortho reports worsening of RLE; add on MRI RLE to assess status -pending [facility] placement for continued antibiotics and rehab (2) Acute on chronic systolic heart failure Comment: -pt with HF exacerbation -initially received IV lasix -now on torsemide, home spironolactone per cardiology -improvement in LE edema; net total weight loss >20# and negative fluid balance -continue I/O, daily weights (3) Encephalopathy Comment: -pt with mild AMS, confusion -this is typical of overnights, but is occuring this morning -does not appear infected- afebrile, no leukocytosis -CRP, ammonia, UA ordered -possible that this is hospital-acquired delirium; improved this afternoon (4) Acute urinary retention Comment: -Vasquez removed 07/07 -pt unable to void on own; straight cath x2 -reinsert Vasquze and plan for bladder training starting 07/09 (5) Tachy-andre syndrome Comment: -AF with RVR to bradycardia with up to 9-second pause -patient transfered to ICU, placed on dobutamine; weaned off -PPM placed 07/02 -continue tele: intermittently paced; no recurrence of RVR (6) Afib Comment: -AF with RVR, rates into 170s overnight 07/03 -tx to ICU for dilt drip, weaned off -now rate controlled -metoprolol increased to 50 daily per cardiology -continue apixaban -continue tele (7) PVD (peripheral vascular disease) Comment: -with venous stasis ulcer -wound management per wound consult -follow up with wound clinic or podiatry at discharge (8) Diabetes Comment: -HA1c 05/2019 7.2 -BG am 110 -continue lantus 40 -continue lispro ss with FS AC (9) Hyperlipidemia Comment: -continue atorvastatin (10) COPD (chronic obstructive pulmonary disease) Comment: -CXR consistent with COPD in past -dawkins snot appear to be in exacerbation -not on inhalers outpatient (11) JOSHUA (obstructive sleep apnea) Comment: -non-compliant with CPAP (12) DVT prophylaxis Comment: -Diogenesis per PCP, who will follow outpatient (13) Full code status Status and Disposition: Inpatient. Plan for d/c to [facility].
[2019-07-08 10:51] LABS: ABS Eosinophils 0.1 10^3/ul (0-0.6); ABS Lymphocytes 0.7 10^3/ul (1.0-4.8); ABS Monocytes 0.4 10^3/ul (0-0.8); ABS Neutrophils 3.7 10^3/ul (1.5-7.7); Eosinophil % 2.9 %; Hematocrit 32 % (35-47); Hemoglobin 10.2 g/dL (12.0-16.0); Lymphocyte % 14.3 %; Mean Corpuscular HGB Conc 32 g/dL (31-36); Mean Corpuscular Hemoglobin 26 pg (27-31); Mean Corpuscular Volume 81 fL (80-97); Mean Platelet Volume 7.2 fL (7.4-10.4); Nucleated Red Blood Cells % 0.5; Platelet Count 188 10^3/uL (150-450); Red Blood Count 3.94 10^6 /uL (3.70-4.87); Red Cell Distribution Width 22 % (10-15); White Blood Count 5.1 10^3/uL (3.5-10.8)
--- NOTE | 2019-07-08 10:55 | PN ---
Progress Note - Progress Note Date of Service: 07/08/19 Note: Patient resting in joint chair with legs dangling. She is somewhat drowsy today , but answers questions appropriately. She denies CP, fever, SOB or calf pain, but admits to tenderness of left leg wounds if bumped. Her dressings are C/D/I. Both are taken down today. The right foot surgical site has intact sutures, but appears macerated, erythematous and dehissed. No purulent drainage or odor noted. Wound is redressed with Betadine soaked gauze, cling and Son. The left leg ulcerations appear benign with scant drainage on bandages. Redressed with gauze, cling and Son. There is a new blister on the anterior distal tay, most likely related to edema. Due to the appearance of the right foot incision, I will discuss patient with Dr. Jeronimo tomorrow for evaluation and recommendations with possible debridement and MRI to assess for osteomyelitis. Further surgical intervention may be needed. It is very important for the patient to have her legs elevated equal to or above her heart to decrease the swelling in her legs and to improve the tissue. This is discussed with nursing and a formal order will be placed.
[2019-07-08] MEDS: Atorvastatin* 20 MG TAB PO SCH (16:45)
[2019-07-08 16:48] LABS: Urine Appearance Cloudy; Urine Bilirubin Negative (Negative); Urine Blood 3+ (Negative); Urine Color Yellow; Urine Glucose Negative (Negative); Urine Ketones Negative (Negative); Urine Nitrite Negative (Negative); Urine Protein Negative (Negative); Urine Specific Gravity 1.009 (1.010-1.030); Urine Urobilinogen Positive (Negative)
[2019-07-08 16:50] LABS: Urine Bacteria 1+ (Absent); Urine Red Blood Cell 3+(>10/hpf) (Absent); Urine Squamous Epithelial Cell Present (Absent); Urine White Blood Cell Trace(0-5/hpf) (Absent)
--- NOTE | 2019-07-08 20:46 | DS ---
CC: Dr. Damaso Sylvester; Dr. Torres; Dr. Francois; Dr. Sanchez * INTERIM DISCHARGE SUMMARY: DATE OF ADMISSION: 06/27/19 DATE OF DISCHARGE: PRIMARY CARE PROVIDER: Dr. Damaso Sylvester. OTHER PROVIDERS: Dr. Torres, Dr. Francois, Dr. Sanchez. ATTENDING PHYSICIAN: Marialuisa Kuhn MD * (dictated by SHERWIN Calzada). STUDIES WHILE IN THE HOSPITAL: 1. Chest x-ray, impression: Low lung volumes with diffuse interstitial opacification suggestive of interstitial edema, though this may be artifactually accentuated by low lung volumes. 2. Echo, summary: Study unchanged since study of January 2018. LV: Mildly dilated. Wall thickness mildly increased. Systolic function mildly reduced, EF 40% to 45%. Mild hypokinesis of basal-mid anteroseptal and mid inferoseptal myocardium. RV cavity size moderately dilated, wall thickness mildly increased , systolic function moderately reduced, systolic pressure moderately increased. Diastolic flattening and systolic flattening of ventricular septum. LA severely dilated. RA [id number] dilated. Mild MR. Moderate-to- severe TR. Ascending aorta mildly dilated. Pulmonary artery systolic pressure moderately increased. IVC dilated. 3. Bilateral lower extremity ultrasound: No bilateral lower extremity DVT. 4. Chest x-ray, impression: Status post placement of transvenous pacemaker. No evidence for pneumothorax. 5. Right knee x-ray: Suggestion of small joint effusion and loose bodies at suprapatellar joint recess. Negative for fracture or articular malalignment. PROCEDURES WHILE IN THE HOSPITAL: Single chamber pacemaker implantation with Dr. Manrique, 07/02/19. CONSULTATIONS WHILE IN THE HOSPITAL: 1. Orthopedics. [place] to be cellulitis over foot. No fluctuance. No purulent drainage. Afebrile. Recommend IV antibiotics, Betadine, wet to dry over incision, Son bandage. Should erythema not improve, daily dressing changes and IV antibiotics, MRI could be considered. 2. Cardiology for bradycardia with a 9-second pause. Consider dopamine. Consider temporary pacemaker, possible permanent pacemaker to avoid tachy-andre syndrome. Decompensated heart failure might be due to worsening interstitial edema due to right-sided heart failure, may require IV diuretics. 3. Infectious Disease. Right lower extremity cellulitis, status post right 5th toe amputation on 06/20/19 in [place]. Recommend discontinuing cefepime. Continue vancomycin. Hold off on the MRI, but will consider if fails to improve with IV antibiotics. Recommendations based on the patient's clinical course. CURRENT MEDICATIONS: 1. Acetaminophen 650 mg p.o. q.4 hours p.r.n. 2. Albuterol nebulizer q.4 hours while awake p.r.n. 3. Albuterol inhaler 2 puffs inhalation q.4 hours p.r.n. 4. Apixaban 5 mg p.o. b.i.d. 5. Atorvastatin 20 mg p.o. at bedtime. 6. Bisacodyl 10 mg LA daily p.r.n. 7. Cefazolin 1 g q.8 hours. 8. Cyanocobalamin 1000 mcg p.o. daily. 9. Docusate sodium 100 mg p.o. b.i.d. as scheduled. 10. Famotidine 20 mg p.o. daily. 11. Insulin glargine 40 units subcu q.24 hours. 12. Insulin lispro sliding scale. 12. Lorazepam 0.5 mg IV q.6 hours p.r.n. 13. Metoprolol succinate 50 mg p.o. daily. 14. Multivitamin/minerals 1 tab p.o. daily. 15. Oxycodone/acetaminophen 5/325 one tab p.o. q.4 hours p.r.n. 16. MiraLAX 17 g p.o. daily. 17. Mirapex 1 mg p.o. at bedtime. 18. Pregabalin 50 mg p.o. t.i.d. 19. Spironolactone 25 mg p.o. daily. 20. Torsemide 40 mg p.o. daily. HISTORY OF PRESENT ILLNESS/HOSPITAL COURSE: Ms. Kaufman is a 79-year-old female with a past medical history of diabetes mellitus type 2, hypertension, atrial fibrillation, on anticoagulation, heart failure, and recent right 5th toe amputation, 06/20/19, who presented to the ER on 06/27/19 with complaints of increased shortness of breath and bilateral lower extremity edema. She has a history of systolic and diastolic heart failure. Hospitalist team was asked to evaluate her and felt that she was appropriate for inpatient stay with diagnosis of heart failure exacerbation. She was treated with IV Lasix at the beginning of her stay. She was eventually transitioned to her home medications , spironolactone and torsemide. Her shortness of breath improved with diuresis and by the end of her stay, she no longer required supplemental oxygen. She reports a return to baseline in lower extremity edema. On the day of this dictation, the patient's current weight is 311. Her weight at admission was 337 ; the patient has had a 26-pound weight loss. She also has a negative fluid balance at the time of this dictation. Through her stay, she did have a repeat transthoracic echocardiogram, which was reportedly unchanged from January 2018 and revealed an ejection fraction of 40% to 45%, indeterminate diastolic parameters. Prior to admission, the patient had a right 5th toe amputation on 06/20/19. Upon inspection of this area, there appears to be the cellulitis. Infectious Disease and Orthopedics were consulted. Initially, there was little concern for osteomyelitis and the patient was treated with wet-to-dry daily dressing changes and IV antibiotics for cellulitis. She was encouraged to elevate the lower extremities to reduce swelling and improve wound healing. Shortly, after arrival, there was increased suspicion for osteomyelitis, which will require a longer course of antibiotics. She is currently on cefazolin. Again, she will require a prolonged course of antibiotics, antibiotic choice pending based on placement. The patient worked with physical therapy during her hospital stay and they have recommended subacute rehab. The patient is agreeable and is currently awaiting placement. The patient's hospital course was complicated by arrhythmias. At one point, the patient was found to be in AFib with RVR. She responded well to digoxin 0.5 x1. The following day, the patient was found to be bradycardic with rates dropping into the 30s. She also had sinus pause of 9 seconds. At this time, the patient was transferred to the ICU where she was placed on dobutamine drip. Cardiology followed and made recommendations including permanent pacemaker, which was placed on 07/02/19. She had no further sinus pauses after pacemaker placement. The night following pacemaker placement, the patient was noted to have an episode of AFib with RVR with rates in the 170s. She was transferred back to the ICU and placed on diltiazem drip. She was weaned off of this. Cardiology made further recommendations and the patient's metoprolol dose was doubled. Since that time, the patient has had no episodes of RVR. At the time of this dictation, the patient denies chest pain or shortness of breath. She does complain of an occasional cough, but denies fevers or chills. She will report some very mild confusion. Denies dizziness, lightheadedness, abdominal pain, nausea, vomiting, diarrhea, constipation. She has bilateral lower extremity edema that she reports is back to baseline. PHYSICAL EXAMINATION: Please see progress note from 07/08/19. DISCHARGE PLAN: Ms. Kaufman is planned for discharge to subacute rehab, placement pending. CONDITION: Stable. DIET: 1. Heart healthy. 2. ADA/diabetic. ACTIVITY: 1. Right lower extremity heel weightbearing. 2. Continue PT/OT at subacute rehab. EDUCATION: 1. Follow up with Jessica Velasquez NP, 07/10/19 at 2 p.m. for pacemaker wound recheck. 2. Follow up with Dr. Damaso Sylvester within 4 to 7 days of discharge from subacute rehab. This is a summarized report of a complex medical history and hospital stay. For further details, please see the entire medical record. SHERWIN FOX [id number]/[facility] #: [id number] KIERA
[2019-07-08] MEDS: Pramipexole TAB* 0.5 MG PO SCH (21:12)
[2019-07-09] MEDS: ceFAZolin 1 GM ADVAN(*) 1 GM in NS 0.9% 50 ML* 50 ML IVPB SCH ×3 (00:12→17:07)
[2019-07-09] MEDS: Insulin LISPRO* 1 UNITS UNIT SUBCUT SCH ×4 (07:30→21:26)
[2019-07-09] MEDS: Torsemide TAB* 20 MG PO SCH (09:39)
[2019-07-09] MEDS: Insulin GLARGINE(*) 1 UNITS UNIT SUBCUT SCH (09:39)
[2019-07-09] MEDS: Docusate CAP* 100 MG PO SCH ×2 (09:39→21:27)
[2019-07-09] MEDS: Famotidine TAB* 20 MG PO SCH (09:39)
[2019-07-09] MEDS: Cyanocobalamin TAB* 500 MCG PO SCH (09:39)
[2019-07-09] MEDS: Apixaban* 5 MG TAB PO SCH (09:40)
[2019-07-09] MEDS: Polyethylene Glycol 3350* 17 GM PACKET PO SCH (09:40)
[2019-07-09] MEDS: Multivitamins/Minerals TAB PO SCH (09:40)
[2019-07-09] MEDS: Pregabalin 50 mg CAP (*) PO SCH ×3 (09:40→21:27)
[2019-07-09] MEDS: Metoprolol Succinate XL TAB* 50 MG PO SCH (09:40)
[2019-07-09] MEDS: Spironolactone TAB* 25 MG PO SCH (09:41)
--- NOTE | 2019-07-09 10:11 | PN ---
Progress Note - Progress Note Date of Service: 07/09/19 SOAP: Subjective: CC: Right foot infection HPI: Ms. Kaufman is a 79 yo female with PMH significant for DM2, peripheral neuropathy , HTN, A fib, cadiomyopathy, JOSHUA, RLS, morbid obesity, uterine cancer, CHF, HLD , chronic venous statsis with venous ulcers on the left leg; who presented to hospital with right foot cellulitis. Denies fever, chills, nausea, vomiting, or diarrhea. She is waiting for discharge to [facility]. Objective: Vital Signs - 8 hr 07/09/19 07/09/19 07/09/19 03:15 07:48 09:40 Temperature 97.6 F 97.7 F Pulse Rate 59 62 Respiratory 20 20 16 Rate Blood Pressure 145/50 97/50 (mmHg) O2 Sat by Pulse 95 95 Oximetry Physical Exam: General: NAD, sitting up in a chair Neurological: Alert and Oriented HEENT: Moist MM Cardiovascular: Heart rate regular. Bilateral LE edema Respiratory: Lung sounds clear Abdominal: Bowel sounds present; ABD soft, non tender and non distended MSK: No tenderness with palpation of the right ankle Skin: DSG to bilateral LE clean, dry and intact, no surrounding erythema Laboratory Results - last 24 hr 07/08/19 07/08/19 07/08/19 10:44 11:04 16:02 WBC 5.1 RBC 3.94 Hgb 10.2 L Hct 32 L MCV 81 MCH 26 L MCHC 32 RDW 22 H Plt Count 188 MPV 7.2 L Neut % (Auto) 73.1 Lymph % (Auto) 14.3 Bradley % (Auto) 8.8 Eos % (Auto) 2.9 Baso % (Auto) 0.9 Absolute Neuts (auto) 3.7 Absolute Lymphs (auto) 0.7 L Absolute Monos (auto) 0.4 Absolute Eos (auto) 0.1 Absolute Basos (auto) 0.0 Absolute Nucleated RBC 0.0 Nucleated RBC % 0.5 POC Glucose (mg/dL) 189 H 216 H 07/08/19 07/08/19 07/09/19 16:31 20:21 08:02 POC Glucose (mg/dL) 214 H 89 Urine Color Yellow Urine Appearance Cloudy Urine pH 5.0 Ur Specific [place] 1.009 L Urine Protein Negative Urine Ketones Negative Urine Blood 3+ A Urine Nitrate Negative Urine Bilirubin Negative Urine Urobilinogen Positive A Ur Leukocyte Esterase Negative Urine WBC (Auto) Trace(0-5/hpf) Urine RBC (Auto) 3+(>10/hpf) A Ur Squamous Epith Cells Present A Urine Bacteria 1+ A Hyaline Casts Present A Urine Glucose Negative Microbiology 06/28/19 12:58 Aerobic Blood Culture - Final No Source Provided No Growth Day 5 Anaerobic Blood Culture - Final No Growth Day 5 06/28/19 12:58 Aerobic Blood Culture - Final No Source Provided No Growth Day 5 Anaerobic Blood Culture - Final No Growth Day 5 06/27/19 23:57 Aerobic Blood Culture - Final Blood Venous No Growth Day 5 Anaerobic Blood Culture - Final No Growth Day 5 06/27/19 23:57 Aerobic Blood Culture - Final Blood Venous No Growth Day 5 Anaerobic Blood Culture - Final No Growth Day 5 06/27/19 03:37 Urine Culture - Final Urine 06/29/19 12:00 Nasal Screen MRSA (PCR) - Final Nasal Mrsa Not Detected Assessment: 1. Right foot cellulitis and underlying chronic osteomyelitis. Wound culture from 06/18/19 with staph aureus. S/P right 5th toe amputation on 06/20/19 for infection. Surgical pathology from [place] with no inflammation, doesn't look like any cultures were sent. No growth in blood cultures to date. Afebrile and no leukocytosis. 2. Chronic venous insufficiency. Known venous stasis ulcers to the left lower extremity. 3. DM2 with peripheral neuropathy. 4. Morbid obesity. BMI 52.5 5. Tachy-andre syndrome. S/P pacemaker placement. Plan: Continue Ancef 1 gm IV Q8 hours, day 05/19-. Will need a prolonged course of IV ABX in the setting of underlying osteomyelitis. Weekly labs while on IV ABX: CBC, CMP, and CRP. Followup with ID outpatient.
--- NOTE | 2019-07-09 10:16 | PN ---
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,anemia - breathing comfortably at rest - awaiting rehab placement - tele rate controlled afib/v-pace Medications Active Medications: Acetaminophen (Tylenol Tab*) 650 mg PO Q4H PRN PRN Reason: MILD PAIN or TEMP > 100.4 Last Admin: 07/06/19 12:10 Dose: 650 mg Albuterol (Ventolin 2.5 Mg/3 Ml Neb.Luba*) 2.5 mg INH [id number] AWAKE PRN PRN Reason: sob/wheezing Last Admin: 07/04/19 10:37 Dose: 2.5 mg Albuterol (Ventolin Hfa Inhaler*) 2 puff INH Q4H PRN PRN Reason: SHORTNESS OF BREATH Atorvastatin Calcium (Lipitor*) 20 mg PO QPM [facility] Last Admin: 07/08/19 16:45 Dose: 20 mg Bisacodyl (Dulcolax Supp*) 10 mg VT DAILY PRN PRN Reason: CONSTIPATION Cyanocobalamin (Vitamin B12 Tab*) 1,000 mcg PO DAILY [facility] Last Admin: 07/09/19 09:39 Dose: 1,000 mcg Dextrose (D50w Syringe 50 Ml*) 25 gm IV PUSH .FOR FS < 60 - SS PRN PRN Reason: FS < 60 Docusate Sodium (Colace Cap*) 100 mg PO BID [facility] Last Admin: 07/09/19 09:39 Dose: 100 mg Famotidine (Pepcid Tab*) 20 mg PO DAILY [facility] Last Admin: 07/09/19 09:39 Dose: 20 mg Cefazolin Sodium 1 gm/ Sodium (Chloride) 50 mls @ 200 mls/hr IVPB Q8H [facility] Last Admin: 07/09/19 09:38 Dose: 200 mls/hr Insulin Glargine (Lantus(*)) 40 units SUBCUT Q24H [facility] Last Admin: 07/09/19 09:39 Dose: 40 units Insulin Human Lispro (Humalog*) 0 units SUBCUT ACHS [facility]; Protocol Last Admin: 07/09/19 07:30 Dose: Not Given Lorazepam (Ativan Inj*) 0.5 mg IV PUSH Q6H PRN PRN Reason: ANXIETY Last Admin: 07/07/19 17:16 Dose: 0.5 mg Metoprolol Succinate (Toprol Xl Tab*) 50 mg PO DAILY [facility] Last Admin: 07/09/19 09:40 Dose: Not Given Miscellaneous (Ativan Pyxis Connors) 1 ea N/A .ATIVAN IV CONNORS PRN PRN Reason: PYXIS CONNORS Multivitamins/Minerals (Theragran/Minerals Tab*) 1 tab PO DAILY [facility] Last Admin: 07/09/19 09:40 Dose: 1 tab Oxycodone/Acetaminophen (Percocet 5/325 Tab*) 1 tab PO Q4H PRN PRN Reason: PAIN - MODERATE Last Admin: 07/04/19 17:24 Dose: 1 tab Polyethylene Glycol/Electrolytes (Miralax (17 Gm Dose Deandre)) 17 gm PO DAILY [facility] Last Admin: 07/09/19 09:40 Dose: 17 gm Pramipexole Dihydrochloride (Mirapex Tab*) 1 mg PO BEDTIME [facility] Last Admin: 07/08/19 21:12 Dose: 1 mg Pregabalin (Lyrica 50 Mg Cap (*)) 50 mg PO TID [facility] Last Admin: 07/09/19 09:40 Dose: 50 mg Spironolactone (Aldactone Tab*) 25 mg PO DAILY [facility] Last Admin: 07/09/19 09:41 Dose: Not Given Torsemide (Demadex*) 40 mg PO DAILY [facility] Last Admin: 07/09/19 09:39 Dose: 40 mg Objective Vital Signs: Temp Pulse Resp BP Pulse Ox 97.7 F 62 16 97/50 95 07/09/19 07:48 07/09/19 07:48 07/09/19 09:40 07/09/19 07:48 07/09/19 07:48 Oxygen Devices in Use Now: None Appearance: nad, pleasant Eyes: No Scleral Icterus, PERRLA Ears/Nose/Mouth/Throat: NL Teeth, Lips, Gums, Clear Oropharnyx, Mucous Membranes Moist Neck: Trachea Midline, - - uncertain jvp Respiratory: Symmetrical Chest Expansion and Respiratory Effort, - - basilar crackles Cardiovascular: - - irregularly irregular no significant murmur, pacemaker alex intact. + pocket hematoma noted Extremities: No Edema, - - 1+ edema b/l Skin: - - left anterior device site non tender to palpation, no pocket hematoma. no oozing. edged well approximated with alex. Neurological: Alert and Oriented x 3 Lines/Tubes/Other Access: Clean, Dry and Intact Vasquez, Clean, Dry and Intact Peripheral IV Laboratory Results: 07/08/19 10:44 07/07/19 05:25 INR (Anticoag Therapy) 1.68 (0.82-1.09) H 07/02/19 07:20 Total Bilirubin 2.00 mg/dL (0.2-1.0) H 06/29/19 12:55 AST 27 U/L (13-39) 06/29/19 12:55 ALT 11 U/L (7-52) 06/29/19 12:55 Alkaline Phosphatase 215 U/L (34-104) H 06/29/19 12:55 B-Natriuretic Peptide 382 pg/mL (<=100) H 06/29/19 12:55 Total Protein 6.5 g/dL (6.4-8.9) 06/29/19 12:55 Albumin 2.9 g/dL (3.2-5.2) L 06/29/19 12:55 Globulin 3.6 g/dL (2-4) 06/29/19 12:55 Albumin/Globulin Ratio 0.8 (1-3) L 06/29/19 12:55 TSH 6.08 mcIU/mL (0.34-5.60) H 06/29/19 12:55 06/27/19 15:58 Troponin I 0.02 Laboratory Results - last 24 hr 07/05/19 07/08/19 07/08/19 07:25 10:44 10:44 WBC RBC Hgb Hct MCV MCH MCHC RDW Plt Count MPV Neut % (Auto) Lymph % (Auto) Wright % (Auto) Eos % (Auto) Baso % (Auto) Absolute Neuts (auto) Absolute Lymphs (auto) Absolute Monos (auto) Absolute Eos (auto) Absolute Basos (auto) Absolute Nucleated RBC Nucleated RBC % POC Glucose (mg/dL) Ammonia 84 H C-Reactive Protein 41.36 H Urine Color Urine Appearance Urine pH Ur Specific [place] Urine Protein Urine Ketones Urine Blood Urine Nitrate Urine Bilirubin Urine Urobilinogen Ur Leukocyte Esterase Urine WBC (Auto) Urine RBC (Auto) Ur Squamous Epith Cells Urine Bacteria Hyaline Casts Urine Glucose Digitoxin None detected 07/08/19 07/08/19 07/08/19 10:44 11:04 16:02 WBC 5.1 RBC 3.94 Hgb 10.2 L Hct 32 L MCV 81 MCH 26 L MCHC 32 RDW 22 H Plt Count 188 MPV 7.2 L Neut % (Auto) 73.1 Lymph % (Auto) 14.3 Wright % (Auto) 8.8 Eos % (Auto) 2.9 Baso % (Auto) 0.9 Absolute Neuts (auto) 3.7 Absolute Lymphs (auto) 0.7 L Absolute Monos (auto) 0.4 Absolute Eos (auto) 0.1 Absolute Basos (auto) 0.0 Absolute Nucleated RBC 0.0 Nucleated RBC % 0.5 POC Glucose (mg/dL) 189 H 216 H Ammonia C-Reactive Protein Urine Color Urine Appearance Urine pH Ur Specific [place] Urine Protein Urine Ketones Urine Blood Urine Nitrate Urine Bilirubin Urine Urobilinogen Ur Leukocyte Esterase Urine WBC (Auto) Urine RBC (Auto) Ur Squamous Epith Cells Urine Bacteria Hyaline Casts Urine Glucose Digitoxin 07/08/19 07/08/19 07/09/19 16:31 20:21 08:02 WBC RBC Hgb Hct MCV MCH MCHC RDW Plt Count MPV Neut % (Auto) Lymph % (Auto) Wright % (Auto) Eos % (Auto) Baso % (Auto) Absolute Neuts (auto) Absolute Lymphs (auto) Absolute Monos (auto) Absolute Eos (auto) Absolute Basos (auto) Absolute Nucleated RBC Nucleated RBC % POC Glucose (mg/dL) 214 H 89 Ammonia C-Reactive Protein Urine Color Yellow Urine Appearance Cloudy Urine pH 5.0 Ur Specific [place] 1.009 L Urine Protein Negative Urine Ketones Negative Urine Blood 3+ A Urine Nitrate Negative Urine Bilirubin Negative Urine Urobilinogen Positive A Ur Leukocyte Esterase Negative Urine WBC (Auto) Trace(0-5/hpf) Urine RBC (Auto) 3+(>10/hpf) A Ur Squamous Epith Cells Present A Urine Bacteria 1+ A Hyaline Casts Present A Urine Glucose Negative Digitoxin Diagnostic Imaging: Transthoracic Echocardiogram Study Date: 06/28/2019 Conclusions Summary: - Impressions: The study is unchanged since the study of January 2018. - Left ventricle: The cavity size is mildly dilated. Wall thickness is mildly increased. Systolic function is mildly reduced. The estimated ejection fraction is 40-45%. - Regional wall motion abnormality: Mild hypokinesis of the basal-mid anteroseptal and mid inferoseptal myocardium. - Right ventricle: The cavity size is moderately dilated. Wall thickness is mildly increased. Systolic function is moderately reduced. Systolic pressure is moderately increased. - Ventricular septum: There is diastolic flattening and systolic flattening. - Left atrium: The atrium is severely dilated. - Right atrium: The atrium is moderately to severely dilated. Patient Name: KENNEDI LION Medical Record#: [id number] Ordering Physician: Prakash Manrique MD Acct.#: [id number] : 1940 Age: 79 Sex: F Location: [address] [place] [address] - MEDICAL/TELEMETRY Exam Date: 07/03/19 0800 ADM Status: ADM IN Order Information: CHEST PA & LAT 2 VWS Accession Number: [id number] CPT: 04699 INDICATION: Status post device implant. COMPARISON: Comparison is made with a prior study from June 27, 2019. TECHNIQUE: AP and lateral views of the chest were obtained. FINDINGS: The heart is mildly enlarged. The patient is status post placement of a transvenous pacemaker. The lungs are underinflated. There is bilateral increased density likely secondary to atelectasis. No pneumothorax is seen. IMPRESSION: STATUS POST PLACEMENT OF A TRANSVENOUS PACEMAKER, NO EVIDENCE FOR PNEUMOTHORAX. EKG Data: 07/03/2019 ECG; Afib rate 91. Telemetry reviewed. AF rate 80's Assessment/Plan Patient scheduled to have alex removed tomorrow in office however, given she is awaiting placement I decided to do wound check today. Noted + pocket hematoma most noticeably involving right upper border. non tender to palpation. no oozing. She is on Eliquis 5mg PO BID which I have stopped. I will speak with Dr. Manrique about holding OAC and consider transitioning to Coumadin given BMI 51.8. In the past she was aware of bleeding risks on Eliquis due to her weight but opted to stay on it per primary [employer] Dr. Zapata. Given pocket hematoma however, it is reasonable to transition to Coumadin. Will re evaluate wound tomorrow and likely remove alex at that time. Attending: Prakash Manrique
--- NOTE | 2019-07-09 17:28 | PN ---
Subjective Date of Service: 07/09/19 Interval History: Denies any LE pain. Denies sob,cp Family History: Unchanged from Admission Social History: Unchanged from Admission Past Medical History: Unchanged from Admission Objective Active Medications: Acetaminophen (Tylenol Tab*) 650 mg PO Q4H PRN PRN Reason: MILD PAIN or TEMP > 100.4 Last Admin: 07/06/19 12:10 Dose: 650 mg Albuterol (Ventolin 2.5 Mg/3 Ml Neb.Luba*) 2.5 mg INH [id number] AWAKE PRN PRN Reason: sob/wheezing Last Admin: 07/04/19 10:37 Dose: 2.5 mg Albuterol (Ventolin Hfa Inhaler*) 2 puff INH Q4H PRN PRN Reason: SHORTNESS OF BREATH Atorvastatin Calcium (Lipitor*) 20 mg PO QPM [facility] Last Admin: 07/08/19 16:45 Dose: 20 mg Bisacodyl (Dulcolax Supp*) 10 mg HI DAILY PRN PRN Reason: CONSTIPATION Cyanocobalamin (Vitamin B12 Tab*) 1,000 mcg PO DAILY [facility] Last Admin: 07/09/19 09:39 Dose: 1,000 mcg Dextrose (D50w Syringe 50 Ml*) 25 gm IV PUSH .FOR FS < 60 - SS PRN PRN Reason: FS < 60 Docusate Sodium (Colace Cap*) 100 mg PO BID [facility] Last Admin: 07/09/19 09:39 Dose: 100 mg Famotidine (Pepcid Tab*) 20 mg PO DAILY [facility] Last Admin: 07/09/19 09:39 Dose: 20 mg Cefazolin Sodium 1 gm/ Sodium (Chloride) 50 mls @ 200 mls/hr IVPB Q8H [facility] Last Admin: 07/09/19 17:07 Dose: 200 mls/hr Insulin Glargine (Lantus(*)) 40 units SUBCUT Q24H [facility] Last Admin: 07/09/19 09:39 Dose: 40 units Insulin Human Lispro (Humalog*) 0 units SUBCUT ACHS [facility]; Protocol Last Admin: 07/09/19 17:08 Dose: Not Given Lorazepam (Ativan Inj*) 0.5 mg IV PUSH Q6H PRN PRN Reason: ANXIETY Last Admin: 07/07/19 17:16 Dose: 0.5 mg Metoprolol Succinate (Toprol Xl Tab*) 50 mg PO DAILY [facility] Last Admin: 07/09/19 09:40 Dose: Not Given Miscellaneous (Ativan Pyxis Lai) 1 ea N/A .ATIVAN IV LAI PRN PRN Reason: PYXIS LAI Multivitamins/Minerals (Theragran/Minerals Tab*) 1 tab PO DAILY [facility] Last Admin: 07/09/19 09:40 Dose: 1 tab Polyethylene Glycol/Electrolytes (Miralax (17 Gm Dose Deandre)) 17 gm PO DAILY [facility] Last Admin: 07/09/19 09:40 Dose: 17 gm Pramipexole Dihydrochloride (Mirapex Tab*) 1 mg PO BEDTIME [facility] Last Admin: 07/08/19 21:12 Dose: 1 mg Pregabalin (Lyrica 50 Mg Cap (*)) 50 mg PO TID [facility] Last Admin: 07/09/19 14:43 Dose: 50 mg Spironolactone (Aldactone Tab*) 25 mg PO DAILY [facility] Last Admin: 07/09/19 09:41 Dose: Not Given Torsemide (Demadex*) 40 mg PO DAILY [facility] Last Admin: 07/09/19 09:39 Dose: 40 mg Warfarin Sodium (Coumadin Tab(*)) 5 mg PO DAILY@1700 [facility]; Protocol Vital Signs - 8 hr 07/09/19 07/09/19 07/09/19 09:40 11:17 12:24 Temperature 97.5 F Pulse Rate 80 Respiratory 16 22 16 Rate Blood Pressure 109/40 (mmHg) O2 Sat by Pulse 97 Oximetry 07/09/19 07/09/19 07/09/19 14:43 15:45 17:08 Temperature 97.7 F Pulse Rate 71 Respiratory 16 16 16 Rate Blood Pressure 101/61 (mmHg) O2 Sat by Pulse 97 Oximetry Oxygen Devices in Use Now: None Eyes: No Scleral Icterus Ears/Nose/Mouth/Throat: NL Teeth, Lips, Gums Neck: NL Appearance and Movements; NL JVP Respiratory: Symmetrical Chest Expansion and Respiratory Effort Cardiovascular: NL Sounds; No Murmurs; No JVD Abdominal: NL Sounds; No Tenderness; No Distention Extremities: - - bilateral edema, dressing CDI Neurological: Alert and Oriented x 3 Result Diagrams: 07/08/19 10:44 07/07/19 05:25 Additional Lab and Data: Above labs were pulled into the note, when the note was edited prior to signing. See below for labs from day of consultation. Laboratory Tests 06/29/19 07/03/19 07/03/19 12:55 06:44 06:44 WBC 6.0 Hgb 9.6 L Hct 30 L Plt Count 100 L Sodium 137 Potassium 4.0 Chloride 103 Carbon Dioxide 27 BUN 25 H Creatinine 0.86 Glucose 108 H Total Protein 6.5 Albumin 2.9 L Microbiology and Other Data: Microbiology 06/27/19 23:57 Aerobic Blood Culture - Preliminary Blood Venous No Growth Day 1 Anaerobic Blood Culture - Preliminary No Growth Day 1 06/27/19 23:57 Aerobic Blood Culture - Preliminary Blood Venous No Growth Day 1 Anaerobic Blood Culture - Preliminary No Growth Day 1 Diagnostic Imagin. Exam Date: 06/29/19 1517 - VL LOWER EXT VEINS BILATERAL IMPRESSION: No bilateral lower extremity deep vein thrombosis. 2. Exam Date: 05/05/15 - CTA ABD AORTA & RUNOFF IMPRESSION: 1. MILD ATHEROSCLEROTIC CHANGE. NO EVIDENCE FOR HEMODYNAMICALLY SIGNIFICANT STENOSIS. 2. BILATERAL LOWER EXTREMITY VARICOSE VEINS.. 3. Exam Date: 02/19/15 - VL ANK/BRACHIAL INDICES Right: The posterior tibial ankle brachial index is 1.3. The dorsalis pedis ankle brachial index is 1.53. The digital brachial index is 0.83. The posterior tibial waveform is triphasic. The dorsalis pedis waveform is triphasic. Left: The posterior tibial ankle brachial index is 1.19. The dorsalis pedis ankle brachial index is 1.06. The posterior tibial waveform is triphasic. The dorsalis pedis waveform is biphasic. IMPRESSION: 1. INCREASED ANKLE-BRACHIAL INDICES ON THE RIGHT AND TO A LESSER EXTENT ON THE LEFT, CONSISTENT WITH DECREASED COMPLIANCE IN THE SETTING OF ARTERIOSCLEROSIS. 2. 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 Assess/Plan/Problems-Billing Assessment: 79yof PMHx DM II, HTN, AF on AC, systolic heart failure, JOSHUA presents with QUIGLEY, b/l LE edema with suspected heart failure exacerbation. - Patient Problems (1) Osteomyelitis Current Visit: No Status: Acute Code(s): M86.9 - OSTEOMYELITIS, UNSPECIFIED SNOMED Code(s): 73612587 Comment: -s/p bunionette removal and R 5th toe amputation 06/20 -h/o RLE MSSA cellulitis, likely with underlying osteo -ortho following; thank you for recommendations -continue dressing changes, heel WB RLE with post-op shoe over dressing -ID following; thank you for recommendations -continue cefazolin; will need extended course of antibiotics -ortho reports worsening of RLE; add on MRI RLE to assess status -pending DEXETR placement for continued antibiotics and rehab -ID following (2) Tachy-andre syndrome Current Visit: Yes Status: Acute Code(s): I49.5 - SICK SINUS SYNDROME SNOMED Code(s): 78234190 Comment: -AF with RVR to bradycardia with up to 9-second pause -patient transfered to ICU, placed on dobutamine; weaned off -PPM placed 07/02 -continue tele: intermittently paced; no recurrence of RVR -Appreciate cardiology input -Pocket Hematoma -Cardiology rec holding eliquis and starting coumadin -Will not bridge with lovenox in setting of pocket hematoma -Will start coumadin 5 mg and adjust -Eliquis stopped (3) Acute on chronic systolic heart failure Current Visit: Yes Status: Acute Code(s): I50.23 - ACUTE ON CHRONIC SYSTOLIC (CONGESTIVE) HEART FAILURE SNOMED Code(s): 797791603 Comment: -pt with HF exacerbation -initially received IV lasix -now on torsemide, home spironolactone per cardiology -improvement in LE edema; net total weight loss >20# and negative fluid balance -continue I/O, daily weights (4) Acute urinary retention Current Visit: Yes Status: Acute Code(s): R33.8 - OTHER RETENTION OF URINE SNOMED Code(s): 709193111 Comment: -Vasquez removed 07/07 -pt unable to void on own; straight cath x2 -reinsert Vasquez and plan for bladder training starting 07/09 (5) Amputation of fifth toe of right foot Current Visit: Yes Status: Acute Code(s): S98.131A - COMPLETE TRAUMATIC AMPUTATION OF ONE RIGHT LESSER TOE, INIT SNOMED Code(s): 903735517 Comment: -s/p bunionette removal and R 5th toe amputation 06/20 -appears cellulitic, likely with underlying osteo -ID following -osteo (6) Encephalopathy Current Visit: Yes Status: Acute Code(s): G93.40 - ENCEPHALOPATHY, UNSPECIFIED SNOMED Code(s): 98168517 Comment: --resolved -pt with mild AMS, confusion yesterday -this is typical of overnights, but is occuring this morning -does not appear infected- afebrile, no leukocytosis -CRP, ammonia, UA ordered -possible that this is hospital-acquired delirium; improved this afternoon (7) JOSHUA (obstructive sleep apnea) Current Visit: Yes Status: Acute Code(s): G47.33 - OBSTRUCTIVE SLEEP APNEA ( ADULT) (PEDIATRIC) SNOMED Code(s): 73537955 Comment: -non-compliant with CPAP (8) PVD (peripheral vascular disease) Current Visit: Yes Status: Acute Code(s): I73.9 - PERIPHERAL VASCULAR DISEASE, UNSPECIFIED SNOMED Code(s): 598622941 Comment: -with venous stasis ulcer -wound management per wound consult -follow up with wound clinic or podiatry at discharge Status and Disposition: Inpatient. Plan for d/c to [facility].
[2019-07-09] MEDS: Atorvastatin* 20 MG TAB PO SCH (17:34)
[2019-07-09] MEDS: Warfarin TAB(*) 5 MG PO SCH (17:38)
--- NOTE | 2019-07-09 19:31 | PN ---
Hospitalist Progress Note Date of Service: 07/09/19 Pt ams and couldsnt be woken up. Seen at bedside.improved at baseline.will get abg.she is ok trying cpap in the hospital for spencer.
[2019-07-09] MEDS: Pramipexole TAB* 0.5 MG PO SCH (21:27)
[2019-07-10] MEDS: ceFAZolin 1 GM ADVAN(*) 1 GM in NS 0.9% 50 ML* 50 ML IVPB SCH ×3 (01:48→16:57)
[2019-07-10 05:07] LABS: ABS Basophils 0.1 10^3/ul (0-0.2); ABS Eosinophils 0.2 10^3/ul (0-0.6); ABS Lymphocytes 0.9 10^3/ul (1.0-4.8); ABS Monocytes 0.5 10^3/ul (0-0.8); ABS Neutrophils 3.4 10^3/ul (1.5-7.7); Eosinophil % 4.2 %; Hematocrit 30 % (35-47); Hemoglobin 9.4 g/dL (12.0-16.0); Lymphocyte % 17.8 %; Mean Corpuscular HGB Conc 32 g/dL (31-36); Mean Corpuscular Hemoglobin 27 pg (27-31); Mean Corpuscular Volume 83 fL (80-97); Nucleated Red Blood Cells % 0.4; Platelet Count 191 10^3/uL (150-450); Red Blood Count 3.57 10^6 /uL (3.70-4.87); Red Cell Distribution Width 22 % (10-15); White Blood Count 5.2 10^3/uL (3.5-10.8)
[2019-07-10 05:20] LABS: Calcium 8.5 mg/dL (8.6-10.3); Potassium 3.5 mmol/L (3.5-5.0)
[2019-07-10 05:26] LABS: BUN/Creatinine Ratio 30.6 (8-20); EGFR African American 94.8 (>60); EGFR Non-African American 78.3 (>60)
[2019-07-10 05:31] LABS: INR 1.85 (0.82-1.09)
[2019-07-10] MEDS: Insulin LISPRO* 1 UNITS UNIT SUBCUT SCH ×4 (07:59→20:18)
[2019-07-10] MEDS: Torsemide TAB* 20 MG PO SCH (09:30)
[2019-07-10] MEDS: Multivitamins/Minerals TAB PO SCH (09:30)
[2019-07-10] MEDS: Metoprolol Succinate XL TAB* 50 MG PO SCH (09:30)
[2019-07-10] MEDS: Polyethylene Glycol 3350* 17 GM PACKET PO SCH (09:30)
[2019-07-10] MEDS: Famotidine TAB* 20 MG PO SCH (09:30)
[2019-07-10] MEDS: Cyanocobalamin TAB* 500 MCG PO SCH (09:30)
[2019-07-10] MEDS: Insulin GLARGINE(*) 1 UNITS UNIT SUBCUT SCH (09:30)
[2019-07-10] MEDS: Spironolactone TAB* 25 MG PO SCH (09:31)
[2019-07-10] MEDS: Pregabalin 50 mg CAP (*) PO SCH ×3 (09:31→20:18)
[2019-07-10] MEDS: Docusate CAP* 100 MG PO SCH ×2 (09:31→20:19)
--- NOTE | 2019-07-10 13:00 | PN ---
Progress Note - Progress Note Date of Service: 07/09/19 SOAP: Subjective: []Pt seen at bedside with Dr Jeronimo for eval of foot wound. She has no complaints Objective: []Gen: NAD RLE: dehisced area healing well, wound is not well approximated without erythema or drainage. Nontender to palpation about incision Assessment: []Right foot cellulitis and mild wound dehiscence both improved Plan: Heel WB in post op shoe Cont Abx per ID, ancef FU your surgeon within 1 week of DC. If in [facility] please feel free to follow up with our foot team either Dr Jeronimo or Dr Barahona. Vital Signs Temp 97.5 F 07/10/19 11:13 Pulse 62 07/10/19 11:13 Resp 18 07/10/19 11:45 BP 111/56 07/10/19 11:13 Pulse Ox 99 07/10/19 11:13 Intake & Output 07/09/19 07/10/19 07/10/19 18:59 06:59 18:59 Intake Total 650 480 Output Total 1750 300 Balance -1100 -300 480 Weight 314 lb Intake: Oral 650 480 Output: Urine 550 300 Vasquez 1200 Other: # Bowel Movements 1 Estimated Stool Amount Large Laboratory Last Values WBC 5.2 10^3/uL (3.5-10.8) 07/10/19 04:51 RBC 3.57 10^6 /uL (3.70-4.87) L 07/10/19 04:51 Hgb 9.4 g/dL (12.0-16.0) L 07/10/19 04:51 Hct 30 % (35-47) L 07/10/19 04:51 MCV 83 fL (80-97) 07/10/19 04:51 MCH 27 pg (27-31) 07/10/19 04:51 MCHC 32 g/dL (31-36) 07/10/19 04:51 RDW 22 % (10-15) H 07/10/19 04:51 Plt Count 191 10^3/uL (150-450) 07/10/19 04:51 MPV 7.0 fL (7.4-10.4) L 07/10/19 04:51 Neut % (Auto) 66.5 % 07/10/19 04:51 Lymph % (Auto) 17.8 % 07/10/19 04:51 [place] % (Auto) 10.4 % 07/10/19 04:51 Eos % (Auto) 4.2 % 07/10/19 04:51 Baso % (Auto) 1.1 % 07/10/19 04:51 Absolute Neuts (auto) 3.4 10^3/ul (1.5-7.7) 07/10/19 04:51 Absolute Lymphs (auto) 0.9 10^3/ul (1.0-4.8) L 07/10/19 04:51 Absolute Monos (auto) 0.5 10^3/ul (0-0.8) 07/10/19 04:51 Absolute Eos (auto) 0.2 10^3/ul (0-0.6) 07/10/19 04:51 Absolute Basos (auto) 0.1 10^3/ul (0-0.2) 07/10/19 04:51 Absolute Nucleated RBC 0.0 10^3/ul 07/10/19 04:51 Nucleated RBC % 0.4 07/10/19 04:51 INR (Anticoag Therapy) 1.85 (0.82-1.09) H 07/10/19 04:51 D-Dimer, Quantitative 373 ng/mL (Less Than 230) H 06/29/19 12:55 Patient Temperature Not Reportable 07/09/19 19:32 ABG pH 7.49 (7.35-7.45) H 07/09/19 19:32 ABG pH (Temp Correct) Not Reportable 07/09/19 19:32 ABG pCO2 50 mmHg (35-45) H 07/09/19 19:32 ABG pCO2 (Temp Corrct Not Reportable 07/09/19 19:32 ABG pO2 105 mmHg (80-100) H 07/09/19 19:32 ABG pO2 (Temp Correct Not Reportable 07/09/19 19:32 ABG HCO3 34.8 mmol/L (19-31) H 07/09/19 19:32 ABG O2 Saturation 99.2 % (94.0-98.0) H 07/09/19 19:32 ABG Base Excess 12.7 mmol/L (-2.0-2.0) H 07/09/19 19:32 Respiration Rate Not Reportable 07/09/19 19:32 O2 Delivery Device nasal cannula 07/09/19 19:32 Ventilator Type Not Reportable 07/09/19 19:32 Vent Mode Not Reportable 07/09/19 19:32 FiO2 28 07/09/19 19:32 Inspiratory Time Not Reportable 07/09/19 19:32 PEEP Not Reportable 07/09/19 19:32 Pressure Support Not Reportable 07/09/19 19:32 Pressure Control Not Reportable 07/09/19 19:32 EPAP Not Reportable 07/09/19 19:32 IPAP Not Reportable 07/09/19 19:32 BiPAP Not Reportable 07/09/19 19:32 Sodium 142 mmol/L (135-145) 07/10/19 04:51 Potassium 3.5 mmol/L (3.5-5.0) 07/10/19 04:51 Chloride 101 mmol/L (101-111) 07/10/19 04:51 Carbon Dioxide 37 mmol/L (22-32) H 07/10/19 04:51 Anion Gap 4 mmol/L (2-11) 07/10/19 04:51 BUN 22 mg/dL (6-24) 07/10/19 04:51 Creatinine 0.72 mg/dL (0.51-0.95) 07/10/19 04:51 Est GFR ( Amer) 94.8 (>60) 07/10/19 04:51 Est GFR (Non-Af Amer) 78.3 (>60) 07/10/19 04:51 BUN/Creatinine Ratio 30.6 (8-20) H 07/10/19 04:51 Glucose 64 mg/dL (70-100) L 07/10/19 04:51 POC Glucose (mg/dL) 152 mg/dL (70-100) H 07/10/19 11:38 Lactic Acid 1.0 mmol/L (0.5-2.0) 06/28/19 12:58 Calcium 8.5 mg/dL (8.6-10.3) L 07/10/19 04:51 Magnesium 1.9 mg/dL (1.9-2.7) 07/07/19 05:25 Iron 60 ug/dL (50-212) 06/29/19 12:55 TIBC 378 mcg/dL (250-450) 06/29/19 12:55 % Saturation 16 % (15-55) 06/29/19 12:55 Unsat Iron Binding < 363 ug/dL 06/29/19 12:55 Transferrin 270 mg/dL (203-362) 06/29/19 12:55 Ferritin 74.2 ng/mL (11-307) 06/29/19 12:55 Total Bilirubin 2.00 mg/dL (0.2-1.0) H 06/29/19 12:55 AST 27 U/L (13-39) 06/29/19 12:55 ALT 11 U/L (7-52) 06/29/19 12:55 Alkaline Phosphatase 215 U/L (34-104) H 06/29/19 12:55 Ammonia 84 mcmol/L (16-53) H 07/08/19 10:44 Troponin I 0.02 ng/mL (<0.03) 06/27/19 15:58 C-Reactive Protein 41.36 mg/L (<8.01) H 07/08/19 10:44 B-Natriuretic Peptide 382 pg/mL (<=100) H 06/29/19 12:55 Total Protein 6.5 g/dL (6.4-8.9) 06/29/19 12:55 Total Protein (PEP) 6.6 g/dL (6.3 - 7.9) 06/30/19 05:00 Albumin 2.9 g/dL (3.2-5.2) L 06/29/19 12:55 Albumin (PEP) 2.5 g/dL (3.4-4.7) L 06/30/19 05:00 Globulin 3.6 g/dL (2-4) 06/29/19 12:55 Albumin/Globulin Ratio 0.8 (1-3) L 06/29/19 12:55 Albumin/Globulin (PEP) 0.62 06/30/19 05:00 Prealbumin 7 mg/dL (18-38) L 07/03/19 06:44 Yflmh-1-Yhszbrecj 0.4 g/dL (0.1-0.3) H 06/30/19 05:00 Jjazj-9-Xvwmabkvm 0.8 g/dL (0.6-1.0) 06/30/19 05:00 Uzak-3-Habzbzty 1.0 g/dL (0.7-1.2) 06/30/19 05:00 Gamma Globulins 1.9 g/dL (0.6-1.6) H 06/30/19 05:00 PEP Impression See comment 06/30/19 05:00 Lipase 84 U/L (11.0-82.0) H 06/27/19 15:58 Vitamin B12 800 pg/mL (180-914) 06/29/19 12:55 Folate 17.18 ng/mL (>3.99) 06/29/19 12:55 TSH 6.08 mcIU/mL (0.34-5.60) H 06/29/19 12:55 Urine Color Yellow 07/08/19 16: Urine Appearance Cloudy 07/08/19 16: Urine pH 5.0 (5-9) 07/08/19 16:31 Ur Specific [place] 1.009 (1.010-1.030) L 07/08/19 16:31 Urine Protein Negative (Negative) 07/08/19 16: Urine Ketones Negative (Negative) 07/08/19 16: Urine Blood 3+ (Negative) A 07/08/19 16: Urine Nitrate Negative (Negative) 07/08/19 16: Urine Bilirubin Negative (Negative) 07/08/19 16: Urine Urobilinogen Positive (Negative) A 07/08/19 16:31 Ur Leukocyte Esterase Negative (Negative) 07/08/19 16:31 Urine WBC (Auto) Trace(0-5/hpf) (Absent) 07/08/19 16: Urine RBC (Auto) 3+(>10/hpf) (Absent) A 07/08/19 16: Ur Squamous Epith Cells Present (Absent) A 07/08/19 16: Urine Bacteria 1+ (Absent) A 07/08/19 16: Hyaline Casts Present (Absent) A 07/08/19 16: Urine Glucose Negative (Negative) 07/08/19 16:31 Vancomycin Trough 20.0 mcg/mL 07/02/19 14:05 Random Vancomycin 15.0 mcg/mL 07/01/19 05:00 Digoxin 1.1 ng/ml (0.8-2.0) 07/04/19 13:02 Digitoxin None detected ng/mL 07/05/19 07:25 Influenza A (Rapid) Negative (Negative) 06/27/19 22:55 Influenza B (Rapid) Negative (Negative) 06/27/19 22:55
--- NOTE | 2019-07-10 15:28 | PN ---
Subjective Date of Service: 07/10/19 Interval History: Denies any complaints. Tried the CPAP last night and reports that it was very uncomfortable Family History: Unchanged from Admission Social History: Unchanged from Admission Past Medical History: Unchanged from Admission Objective Active Medications: Acetaminophen (Tylenol Tab*) 650 mg PO Q4H PRN PRN Reason: MILD PAIN or TEMP > 100.4 Last Admin: 07/06/19 12:10 Dose: 650 mg Albuterol (Ventolin 2.5 Mg/3 Ml Neb.Luba*) 2.5 mg INH [id number] AWAKE PRN PRN Reason: sob/wheezing Last Admin: 07/04/19 10:37 Dose: 2.5 mg Albuterol (Ventolin Hfa Inhaler*) 2 puff INH Q4H PRN PRN Reason: SHORTNESS OF BREATH Atorvastatin Calcium (Lipitor*) 20 mg PO QPM [facility] Last Admin: 07/09/19 17:34 Dose: 20 mg Bisacodyl (Dulcolax Supp*) 10 mg KS DAILY PRN PRN Reason: CONSTIPATION Cyanocobalamin (Vitamin B12 Tab*) 1,000 mcg PO DAILY [facility] Last Admin: 07/10/19 09:30 Dose: 1,000 mcg Dextrose (D50w Syringe 50 Ml*) 25 gm IV PUSH .FOR FS < 60 - SS PRN PRN Reason: FS < 60 Docusate Sodium (Colace Cap*) 100 mg PO BID [facility] Last Admin: 07/10/19 09:31 Dose: 100 mg Famotidine (Pepcid Tab*) 20 mg PO DAILY [facility] Last Admin: 07/10/19 09:30 Dose: 20 mg Cefazolin Sodium 1 gm/ Sodium (Chloride) 50 mls @ 200 mls/hr IVPB Q8H [facility] Last Admin: 07/10/19 09:30 Dose: 200 mls/hr Insulin Glargine (Lantus(*)) 40 units SUBCUT Q24H [facility] Last Admin: 07/10/19 09:30 Dose: 40 units Insulin Human Lispro (Humalog*) 0 units SUBCUT ACHS [facility]; Protocol Last Admin: 07/10/19 12:35 Dose: 2 units Lorazepam (Ativan Inj*) 0.5 mg IV PUSH Q6H PRN PRN Reason: ANXIETY Last Admin: 07/07/19 17:16 Dose: 0.5 mg Metoprolol Succinate (Toprol Xl Tab*) 50 mg PO DAILY [facility] Last Admin: 07/10/19 09:30 Dose: 50 mg Miscellaneous (Ativan Pyxis Lai) 1 ea N/A .ATIVAN IV LAI PRN PRN Reason: PYXIS LAI Multivitamins/Minerals (Theragran/Minerals Tab*) 1 tab PO DAILY [facility] Last Admin: 07/10/19 09:30 Dose: 1 tab Polyethylene Glycol/Electrolytes (Miralax (17 Gm Dose Deandre)) 17 gm PO DAILY [facility] Last Admin: 07/10/19 09:30 Dose: 17 gm Pramipexole Dihydrochloride (Mirapex Tab*) 1 mg PO BEDTIME [facility] Last Admin: 07/09/19 21:27 Dose: 1 mg Pregabalin (Lyrica 50 Mg Cap (*)) 50 mg PO TID [facility] Last Admin: 07/10/19 14:09 Dose: 50 mg Spironolactone (Aldactone Tab*) 25 mg PO DAILY [facility] Last Admin: 07/10/19 09:31 Dose: 25 mg Torsemide (Demadex*) 40 mg PO DAILY [facility] Last Admin: 07/10/19 09:30 Dose: 40 mg Warfarin Sodium (Coumadin Tab(*)) 5 mg PO DAILY@1700 EFRNE; Protocol Last Admin: 07/09/19 17:38 Dose: 5 mg Vital Signs - 8 hr 07/10/19 07/10/19 07/10/19 08:00 09:31 11:13 Temperature 97.5 F Pulse Rate 62 Respiratory 20 18 20 Rate Blood Pressure 111/56 (mmHg) O2 Sat by Pulse 99 Oximetry 07/10/19 07/10/19 11:45 14:09 Temperature Pulse Rate Respiratory 18 16 Rate Blood Pressure (mmHg) O2 Sat by Pulse Oximetry Oxygen Devices in Use Now: Nasal Cannula Eyes: No Scleral Icterus Ears/Nose/Mouth/Throat: NL Teeth, Lips, Gums Neck: NL Appearance and Movements; NL JVP Respiratory: Symmetrical Chest Expansion and Respiratory Effort, Clear to Auscultation Cardiovascular: NL Sounds; No Murmurs; No JVD Abdominal: NL Sounds; No Tenderness; No Distention Extremities: - - dressing cdi Neurological: Alert and Oriented x 3 Result Diagrams: 07/10/19 04:51 07/10/19 04:51 Additional Lab and Data: Above labs were pulled into the note, when the note was edited prior to signing. See below for labs from day of consultation. Laboratory Tests 06/29/19 07/03/19 07/03/19 12:55 06:44 06:44 WBC 6.0 Hgb 9.6 L Hct 30 L Plt Count 100 L Sodium 137 Potassium 4.0 Chloride 103 Carbon Dioxide 27 BUN 25 H Creatinine 0.86 Glucose 108 H Total Protein 6.5 Albumin 2.9 L Microbiology and Other Data: Microbiology 06/27/19 23:57 Aerobic Blood Culture - Preliminary Blood Venous No Growth Day 1 Anaerobic Blood Culture - Preliminary No Growth Day 1 06/27/19 23:57 Aerobic Blood Culture - Preliminary Blood Venous No Growth Day 1 Anaerobic Blood Culture - Preliminary No Growth Day 1 Diagnostic Imagin. Exam Date: 06/29/19 1517 - VL LOWER EXT VEINS BILATERAL IMPRESSION: No bilateral lower extremity deep vein thrombosis. 2. Exam Date: 05/05/15 - CTA ABD AORTA & RUNOFF IMPRESSION: 1. MILD ATHEROSCLEROTIC CHANGE. NO EVIDENCE FOR HEMODYNAMICALLY SIGNIFICANT STENOSIS. 2. BILATERAL LOWER EXTREMITY VARICOSE VEINS.. 3. Exam Date: 02/19/15 - VL ANK/BRACHIAL INDICES Right: The posterior tibial ankle brachial index is 1.3. The dorsalis pedis ankle brachial index is 1.53. The digital brachial index is 0.83. The posterior tibial waveform is triphasic. The dorsalis pedis waveform is triphasic. Left: The posterior tibial ankle brachial index is 1.19. The dorsalis pedis ankle brachial index is 1.06. The posterior tibial waveform is triphasic. The dorsalis pedis waveform is biphasic. IMPRESSION: 1. INCREASED ANKLE-BRACHIAL INDICES ON THE RIGHT AND TO A LESSER EXTENT ON THE LEFT, CONSISTENT WITH DECREASED COMPLIANCE IN THE SETTING OF ARTERIOSCLEROSIS. 2. 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 Assess/Plan/Problems-Billing Assessment: 79yof PMHx DM II, HTN, AF on AC, systolic heart failure, JOSHUA presents with QUIGLEY, b/l LE edema with suspected heart failure exacerbation. - Patient Problems (1) Osteomyelitis Current Visit: No Status: Acute Code(s): M86.9 - OSTEOMYELITIS, UNSPECIFIED SNOMED Code(s): 75423164 Comment: -s/p bunionette removal and R 5th toe amputation 06/20 -h/o RLE MSSA cellulitis, likely with underlying osteo -ortho following; thank you for recommendations -continue dressing changes, heel WB RLE with post-op shoe over dressing -ID following; thank you for recommendations -continue cefazolin; will need extended course of antibiotics -ortho reports worsening of RLE; add on MRI RLE to assess status -pending DEXTER placement for continued antibiotics and rehab -ID following -Antibiotics 28-42 days total cefazolin -Will get PICC for antibiotics (2) Tachy-andre syndrome Current Visit: Yes Status: Acute Code(s): I49.5 - SICK SINUS SYNDROME SNOMED Code(s): 86930335 Comment: -AF with RVR to bradycardia with up to 9-second pause -patient transfered to ICU, placed on dobutamine; weaned off -PPM placed 07/02 -continue tele: intermittently paced; no recurrence of RVR -Appreciate cardiology input -Pocket Hematoma -Cardiology rec holding eliquis and starting coumadin -Will not bridge with lovenox in setting of pocket hematoma -Started coumadin 5 mg and adjust -Eliquis stopped (3) Acute on chronic systolic heart failure Current Visit: Yes Status: Acute Code(s): I50.23 - ACUTE ON CHRONIC SYSTOLIC (CONGESTIVE) HEART FAILURE SNOMED Code(s): 660374192 Comment: -pt with HF exacerbation -initially received IV lasix -now on torsemide, home spironolactone per cardiology -improvement in LE edema; net total weight loss >20# and negative fluid balance -continue I/O, daily weights (4) Acute urinary retention Current Visit: Yes Status: Acute Code(s): R33.8 - OTHER RETENTION OF URINE SNOMED Code(s): 780511401 Comment: -Vasquez removed 07/07 -pt unable to void on own; straight cath x2 -reinsert Vasquez and plan for bladder training starting 07/09 (5) Amputation of fifth toe of right foot Current Visit: Yes Status: Acute Code(s): S98.131A - COMPLETE TRAUMATIC AMPUTATION OF ONE RIGHT LESSER TOE, INIT SNOMED Code(s): 399252094 Comment: -s/p bunionette removal and R 5th toe amputation 06/20 -appears cellulitic, likely with underlying osteo -ID following -osteo (6) Encephalopathy Current Visit: Yes Status: Acute Code(s): G93.40 - ENCEPHALOPATHY, UNSPECIFIED SNOMED Code(s): 48328749 Comment: --resolved -pt with mild AMS, confusion yesterday -this is typical of overnights, but is occuring this morning -does not appear infected- afebrile, no leukocytosis -CRP, ammonia, UA ordered -possible that this is hospital-acquired delirium; improved this afternoon (7) JOSHUA (obstructive sleep apnea) Current Visit: Yes Status: Acute Code(s): G47.33 - OBSTRUCTIVE SLEEP APNEA ( ADULT) (PEDIATRIC) SNOMED Code(s): 94478149 Comment: -non-compliant with CPAP (8) PVD (peripheral vascular disease) Current Visit: Yes Status: Acute Code(s): I73.9 - PERIPHERAL VASCULAR DISEASE, UNSPECIFIED SNOMED Code(s): 602311358 Comment: -with venous stasis ulcer -wound management per wound consult -follow up with wound clinic or podiatry at discharge Status and Disposition: Inpatient. Plan for d/c to [facility] tomorrow or day after. PICC line for antibiotics. INR check.Transitioning to Coumadin.
[2019-07-10] MEDS: Atorvastatin* 20 MG TAB PO SCH (16:56)
[2019-07-10] MEDS: Warfarin TAB(*) 5 MG PO SCH (16:56)
[2019-07-10] MEDS: Pramipexole TAB* 0.5 MG PO SCH (20:18)
[2019-07-11] MEDS: ceFAZolin 1 GM ADVAN(*) 1 GM in NS 0.9% 50 ML* 50 ML IVPB SCH ×3 (01:20→17:29)
[2019-07-11 06:38] LABS: ABS Eosinophils 0.2 10^3/ul (0-0.6); ABS Lymphocytes 0.8 10^3/ul (1.0-4.8); ABS Monocytes 0.4 10^3/ul (0-0.8); Eosinophil % 4.4 %; Hematocrit 31 % (35-47); Hemoglobin 9.7 g/dL (12.0-16.0); Mean Corpuscular HGB Conc 32 g/dL (31-36); Mean Corpuscular Hemoglobin 26 pg (27-31); Mean Corpuscular Volume 82 fL (80-97); Mean Platelet Volume 7.4 fL (7.4-10.4); Nucleated Red Blood Cells % 0.2; Platelet Count 196 10^3/uL (150-450); Red Blood Count 3.75 10^6 /uL (3.70-4.87); Red Cell Distribution Width 22 % (10-15); White Blood Count 4.4 10^3/uL (3.5-10.8)
[2019-07-11 06:42] LABS: INR 2.58 (0.82-1.09)
[2019-07-11 06:58] LABS: BUN/Creatinine Ratio 31.4 (8-20); Calcium 8.3 mg/dL (8.6-10.3); EGFR African American 97.9 (>60); EGFR Non-African American 80.9 (>60); Potassium 3.7 mmol/L (3.5-5.0)
--- NOTE | 2019-07-11 09:29 | PN ---
Progress Note - Progress Note Date of Service: 07/11/19 SOAP: Subjective: CC: Right foot infection HPI: Ms. Kaufman is a 79 yo female with PMH significant for DM2, peripheral neuropathy , HTN, A fib, cadiomyopathy, JOSHUA, RLS, morbid obesity, uterine cancer, CHF, HLD , chronic venous statsis with venous ulcers on the left leg; who presented to hospital with right foot cellulitis after a right 5th toe amputation. Denies fever, chills, nausea, vomiting, or diarrhea. Objective: Vital Signs - 8 hr 07/11/19 07/11/19 07/11/19 03:43 07:30 07:47 Temperature 97.9 F 97.2 F Pulse Rate 62 60 Respiratory 20 20 18 Rate Blood Pressure 107/49 96/52 (mmHg) O2 Sat by Pulse 97 100 Oximetry Physical Exam: General: NAD, sitting up in a chair Neurological: Alert and Oriented HEENT: Moist MM Cardiovascular: Heart rate regular. Bilateral LE edema Respiratory: Lung sounds clear Abdominal: Bowel sounds present; ABD soft, non tender and non distended MSK: No tenderness with palpation of the right ankle Skin: DSG to bilateral LE clean, dry and intact, no surrounding erythema Laboratory Results - last 24 hr 07/11/19 07/11/19 07/11/19 06:08 06:08 06:08 WBC 4.4 RBC 3.75 Hgb 9.7 L Hct 31 L MCV 82 MCH 26 L MCHC 32 RDW 22 H Plt Count 196 MPV 7.4 Neut % (Auto) 67.5 Lymph % (Auto) 17.0 [place] % (Auto) 10.0 Eos % (Auto) 4.4 Baso % (Auto) 1.1 Absolute Neuts (auto) 3.0 Absolute Lymphs (auto) 0.8 L Absolute Monos (auto) 0.4 Absolute Eos (auto) 0.2 Absolute Basos (auto) 0.0 Absolute Nucleated RBC 0.0 Nucleated RBC % 0.2 INR (Anticoag Therapy) 2.58 H Sodium 137 Potassium 3.7 Chloride 98 L Carbon Dioxide 34 H Anion Gap 5 BUN 22 Creatinine 0.70 Est GFR ( Amer) 97.9 Est GFR (Non-Af Amer) 80.9 BUN/Creatinine Ratio 31.4 H Glucose 125 H POC Glucose (mg/dL) Calcium 8.3 L Microbiology 07/08/19 16:31 Urine Culture - Final Urine No Growth (<1,000 CFU/mL) 06/28/19 12:58 Aerobic Blood Culture - Final No Source Provided No Growth Day 5 Anaerobic Blood Culture - Final No Growth Day 5 06/28/19 12:58 Aerobic Blood Culture - Final No Source Provided No Growth Day 5 Anaerobic Blood Culture - Final No Growth Day 5 06/27/19 23:57 Aerobic Blood Culture - Final Blood Venous No Growth Day 5 Anaerobic Blood Culture - Final No Growth Day 5 06/27/19 23:57 Aerobic Blood Culture - Final Blood Venous No Growth Day 5 Anaerobic Blood Culture - Final No Growth Day 5 06/27/19 03:37 Urine Culture - Final Urine 06/29/19 12:00 Nasal Screen MRSA (PCR) - Final Nasal Mrsa Not Detected Assessment: 1. Right foot cellulitis and underlying chronic osteomyelitis. Wound culture from 06/18/19 with staph aureus. S/P right 5th toe amputation on 06/20/19 for infection. Surgical pathology from [facility] with no inflammation, doesn't look like any cultures were sent. No growth in blood cultures to date. Afebrile and no leukocytosis. 2. Chronic venous insufficiency. Known venous stasis ulcers to the left lower extremity. 3. DM2 with peripheral neuropathy. 4. Morbid obesity. BMI 52.5 5. Tachy-andre syndrome. S/P pacemaker placement. Plan: Continue Ancef 1 gm IV Q8 hours, day -42. Weekly labs while on IV ABX: CBC , CMP, and CRP. PICC line was placed this morning. Followup with ID outpatient in 2 weeks.
[2019-07-11] MEDS: Pregabalin 50 mg CAP (*) PO SCH ×3 (10:09→20:57)
[2019-07-11] MEDS: Insulin LISPRO* 1 UNITS UNIT SUBCUT SCH ×4 (10:09→20:58)
[2019-07-11] MEDS: Polyethylene Glycol 3350* 17 GM PACKET PO SCH (10:09)
[2019-07-11] MEDS: Insulin GLARGINE(*) 1 UNITS UNIT SUBCUT SCH (10:09)
[2019-07-11] MEDS: Metoprolol Succinate XL TAB* 50 MG PO SCH (10:10)
[2019-07-11] MEDS: Cyanocobalamin TAB* 500 MCG PO SCH (10:10)
[2019-07-11] MEDS: Famotidine TAB* 20 MG PO SCH (10:10)
[2019-07-11] MEDS: Multivitamins/Minerals TAB PO SCH (10:10)
[2019-07-11] MEDS: Docusate CAP* 100 MG PO SCH ×2 (10:10→20:58)
[2019-07-11] MEDS: Torsemide TAB* 20 MG PO SCH (10:10)
[2019-07-11] MEDS: Spironolactone TAB* 25 MG PO SCH (10:10)
--- NOTE | 2019-07-11 10:44 | DS ---
DISCHARGE SUMMARY: DATE OF ADMISSION: 06/27/19 DATE OF DISCHARGE: 07/11/19 Please refer to the interim discharge summary dictated by Angelic Cornejo on 07/08/19 for full deta ils. PRIMARY DIAGNOSES: 1. Osteomyelitis. 2. Tachybrady syndrome. 3. Acute on chronic congestive heart failure exacerbation, mixed systolic and diastolic type. SECONDARY DIAGNOSES: 1. Type 2 diabetes, on insulin. 2. Hypertension. 3. Atrial fibrillation/tachybrady syndrome. 4. Nonischemic cardiomyopathy. 5. Dilated cardiomyopathy. 6. Obstructive sleep apnea, noncompliant with CPAP. 7. Restless leg. 8. Morbid obesity. 9. History of uterine cancer. 10. Congestive heart failure. 11. Hyperlipidemia. SURGICAL HISTORY: 1. Cardiac catheterization in 2015, which is normal. 2. Cholecystectomy. 3. Gastric bypass. 4. Hysterectomy. 5. Umbilical hernia repair. 6. Toe amputation to the left foot of 3 toes. 7. Right foot bunionectomy and fifth toe amputation. 8. Appendectomy. 9. Left shoulder rotator cuff repair. 10. Left total knee arthroplasty. Please refer to the hospital course and detailed discharge summary dictated by Angelic Cornejo on 0 07/08/19. In summary: 1. For her osteomyelitis, Infectious Disease has been closely involved and they recommend a total of 4 to 6 weeks of antibiotics. The patient has so far completed 2 weeks of antibiotics at the time of discharge and the plan is for 2 more weeks of antibiotics and infectious disease followup wit Dr. Dwain Cash/Dontae George and further decision on prolonging antibiotics or holding at 4 weeks. The patient also needs weekly lab including CBC, CMP, and CRP weekly. The patient is to be on cefazolin 1 g IV q .8 hours. 2. With respect to her tachybrady syndrome, the patient is status post pacemaker placement. The merline londno's pacemaker check was done in the hospital on 07/10/19 as the patient was still in the hospital by Dr. Manrique and Jessica Velasquez. A pocket hematoma was noted, and Cardiology at this time recommends holding the Eliquis that the patient was on and transitioning her to Coumadin to reduce risk of bleed ing. The patient appears stable and the patient has been transitioned to Coumadin and has been on Cou madin for 2 days now. The patient started on 5 mg of Coumadin for 2 days. The patient's INR at the time of discharge noted to be 2.58. We will discharge the patient on 3 mg of Coumadin. The patient needs PT/INR checked everyday the next few days to come up with good Coumadin dose long-term for her. The patient's Eliquis has been held. 3. The patient is to follow up with Cardiology in 1 to 2 weeks as an outpatient. 4. With respect to her acute on chronic congestive heart failure exacerbation, the patient is stable at this time and the patient is doing well on torsemide, spironolactone, and is also on metoprolol. The patient is to continue this at the current dose. 5. With respect to her obstructive sleep apnea, the patient does not want to use her CPAP machine as she finds this very uncomfortable and has not been using this at night at home as well. Vitals and labs noted to be stable at the time of discharge. UPDATED DISCHARGE MEDICATIONS: 1. Pregabalin 50 mg p.o. t.i.d. 2. Mirapex 1 mg p.o. at bedtime. 3. Multivitamin 1 tab p.o. daily. 4. Insulin Lantus 40 units subcu daily. 5. The patient also on insulin sliding scale in the hospital. 6. Vitamin B12 1000 mcg sublingual daily. 7. Atorvastatin 20 mg q.p.m. 8. Albuterol inhaler p.r.n. 9. Warfarin 3 mg p.o. daily. 10. Torsemide 40 mg p.o. daily. 11. Spironolactone 25 mg p.o. daily. 12. MiraLax 17 g p.o. daily p.r.n. 13. Metoprolol 50 mg p.o. daily. 14. Famotidine 20 mg p.o. daily. 15. Colace 100 mg p.o. b.i.d. 16. Dulcolax suppository 10 mg p.r.n. 17. Albuterol nebulizer as needed. 18. Tylenol 650 mg p.o. q.4 hours p.r.n. INSTRUCTIONS: 1. The patient is to follow up with PCP as an outpatient in 1 week. 2. The patient is to follow up with Cardiology in 1 to 2 weeks. 3. The patient is to follow up with Dr. Torres's office in 2 weeks with weekly labs. The patient is to continue her IV cefazolin for 2 more weeks and further plan per ID. 4. The patient to be on insulin sliding scale and 40 of Lantus for her diabetes. 5. The patient needs close monitoring of her INR as the patient has just been transitioned to Coumad in and her Eliquis has been held. We will discharge the patient on 3 mg of Coumadin. The patient rowland s been on Coumadin for 2 days now in light of her pocket hematoma. Further dose adjustments based on INR level. 6. Pacemaker instructions included. CONDITION: Stable. Please note that the patient is having a PICC line placed, and post PICC line pl acement, can be discharged. DISPOSITION: [facility] Bed. TIME SPENT: Total time spent on discharge is equal to 60 minutes. [id number]/[facility] #: [id number]
[2019-07-11] MEDS: Atorvastatin* 20 MG TAB PO SCH (17:29)
[2019-07-11] MEDS: Warfarin TAB(*) 5 MG PO SCH (17:29)
[2019-07-11] MEDS: Pramipexole TAB* 0.5 MG PO SCH (20:58)
[2019-07-12] MEDS: ceFAZolin 1 GM ADVAN(*) 1 GM in NS 0.9% 50 ML* 50 ML IVPB SCH ×2 (01:51→07:41)
[2019-07-12] MEDS: Polyethylene Glycol 3350* 17 GM PACKET PO SCH (07:41)
[2019-07-12] MEDS: Torsemide TAB* 20 MG PO SCH (07:41)
[2019-07-12] MEDS: Pregabalin 50 mg CAP (*) PO SCH (07:41)
[2019-07-12] MEDS: Cyanocobalamin TAB* 500 MCG PO SCH (07:41)
[2019-07-12] MEDS: Metoprolol Succinate XL TAB* 50 MG PO SCH (07:41)
[2019-07-12] MEDS: Famotidine TAB* 20 MG PO SCH (07:42)
[2019-07-12] MEDS: Spironolactone TAB* 25 MG PO SCH (07:42)
[2019-07-12] MEDS: Docusate CAP* 100 MG PO SCH (07:42)
[2019-07-12] MEDS: Insulin GLARGINE(*) 1 UNITS UNIT SUBCUT SCH (07:42)
[2019-07-12] MEDS: Multivitamins/Minerals TAB PO SCH (07:42)
[2019-07-12 10:25] VITALS: BP 107/56
--- NOTE | 2019-07-12 10:36 | DS ---
DISCHARGE SUMMARY: ADDENDUM: Please refer to the detailed discharge summary dictated yesterday and the prior interim hank summary for full details. No change overnight. The patient could not find transport to go [facility] yesterday and was transferred this morning. CONDITION: Stable. DISPOSITION: [facility] bed. TIME SPENT: Total time spent on discharge equal to 50 minutes yesterday and 20 minutes today. [id number]/[facility] #: [id number]
== END 2019-07-12 08:10 | disposition swing bed (61) | DRG 243 ==
LOC: ED 13:39 → MED 19:08 → OBSVTOIN 06-28 11:00 → MEDTELE 06-28 11:29 → ICU 06-29 10:58 → MEDTELE 07-02 13:59 → ICU 07-04 01:58 → MEDTELE 07-04 14:02
PROVIDERS: ADMIT Hospitalist; ATTEND Internal Medicine
PROC: 02HK3JZ Insertion of Pacemaker Lead into Right Ventricle, Percutaneous Approach (ICD-10-PCS; 2019-07-02)
PROC: 0JH604Z Insertion of Pacemaker, Single Chamber into Chest Subcutaneous Tissue and Fascia, Open Approach (ICD-10-PCS; principal; 2019-07-02 12:05)
PROC: 02HV33Z Insertion of Infusion Device into Superior Vena Cava, Percutaneous Approach (ICD-10-PCS; 2019-07-06)
PROC: 5A09357 Assistance with Respiratory Ventilation, Less than 24 Consecutive Hours, Continuous Positive Airway Pressure (ICD-10-PCS; 2019-07-09)
DX: I11.0 Hypertensive heart disease with heart failure (principal); Z68.43 Body mass index [BMI] 50.0-59.9, adult; L03.115 Cellulitis of right lower limb; I48.21 Permanent atrial fibrillation; I47.1 Supraventricular tachycardia; M86.671 Other chronic osteomyelitis, right ankle and foot; G93.40 Encephalopathy, unspecified; I50.43 Acute on chronic combined systolic (congestive) and diastolic (congestive) heart failure; I25.10 Atherosclerotic heart disease of native coronary artery without angina pectoris; E78.00 Pure hypercholesterolemia, unspecified; J44.9 Chronic obstructive pulmonary disease, unspecified; M19.90 Unspecified osteoarthritis, unspecified site; E66.01 Morbid (severe) obesity due to excess calories; G47.33 Obstructive sleep apnea (adult) (pediatric); I49.5 Sick sinus syndrome; I42.0 Dilated cardiomyopathy; Z96.652 Presence of left artificial knee joint; G25.81 Restless legs syndrome; D69.6 Thrombocytopenia, unspecified; I87.8 Other specified disorders of veins; E11.42 Type 2 diabetes mellitus with diabetic polyneuropathy; I50.813 Acute on chronic right heart failure; E11.51 Type 2 diabetes mellitus with diabetic peripheral angiopathy without gangrene; I27.20 Pulmonary hypertension, unspecified; E11.69 Type 2 diabetes mellitus with other specified complication; D64.9 Anemia, unspecified; R33.9 Retention of urine, unspecified; E78.5 Hyperlipidemia, unspecified; Z89.422 Acquired absence of other left toe(s); I25.2 Old myocardial infarction; Z85.42 Personal history of malignant neoplasm of other parts of uterus; Z98.84 Bariatric surgery status; Z89.421 Acquired absence of other right toe(s); Z90.710 Acquired absence of both cervix and uterus; Z79.01 Long term (current) use of anticoagulants; Z79.4 Long term (current) use of insulin
CPT/HCPCS: 33207; 36415; 36600; 71045; 71046; 80048; 80053; 80162; 80202; 80375; 81003; 81015; 82140; 82607; 82728; 82746; 82803; 83540; 83550; 83605; 83690; 83735; 83880; 84134; 84155; 84165; 84443; 84484; 85025; 85379; 85610; 86140; 87040; 87086; 87641; 93005; 93306; 93970; 94640; 94660; 96374; 99284; A9270-GY; C1751; C1786; C1892; C1898; C8929; G0480; J0153; J0461; J0690; J0692; J1160; J1250; J1644; J1940; J2060; J2250; J2310; J2704; J3010; J3370; J3490

== ENCOUNTER 2019-08-26 03:47 | Inpatient (IN) | payer MEDICARE, BC ==
--- NOTE | 2019-08-26 04:09 | ED.VISSUM ---
ED Visit Summary: KENNEDI LION is a 79 year-old F who was seen at the [facility] EMERGENCY DEPARTMENT on 08/26/19 for CHF PER EMS. My pertinent findings including exam and studies, medical decision making, referral reason and treatment are as follows: Patient is a 79 y/o F arriving via ambulance as transfer from [facility] to [facility] as direct admission with concern for CHF exacerbation. Patient was diuresed at [facility]. Patient seen by hospitalist Dr. Wright in the ED. She will proceed with appropriate disposition within the hospital. Patients last ED visit at [facility] on 06/27/2019 warranted admission for acute on chronic CHF exacerbation mixed systolic and diastolic type. During this visit, she had ID consult for osteomyelitis, cardiology consultation with pacemaker placement for afib/tachy andre syndrome. Past medical history also includes diabetes with neuropathy, PVD, HTN, HLD, REILLY , restless leg syndrome, PNA, JOSHUA, sepsis. Diagnosis: CHF exacerbation Scribed by: Moriah Waterman - Attestation Statements Document Initiated by Yulia: Yes Documenting Scribe: Moriah Waterman Provider For Whom Yulia is Documenting (Include Credential): Jorge Zuleta MD Scrib[place]loe Attestation: IMoriah, scribed for Jorge Zuleta MD on 08/26/19 at 0423. Scribe Documentation Reviewed: Yes Provider Attestation: The documentation as recorded by the Moriah henley accurately reflects the service I personally performed and the decisions made by me, Jorge Zuleta MD Status of Scribe Document: Viewed
[2019-08-26] MEDS ORDERED: Acetaminophen TAB* 325 MG PO PRN (04:33)
--- OUTSIDE RECORDS SUMMARY | 2019-08-26 04:57 | XMS REPORT | Continuity of Care Document ---
:1940 External Reference #:[id number] Author Name Prakash Manrique M.D. Address [address] [place] [address] Care Team Providers Name Role Phone Damaso Sylvester MD - Internal Care Team Information Instructor Ground Services Medicine Jorge Fam MD - Infectious Care Team Information Instructor Ground Services [phone] Disease Problems Active Problems Provider Date Disturbance in sleep behavior Pamela Mishra MD Onset: 01/06/2015 Morbid obesity Pamela Mishra MD Onset: 01/06/2015 Obstructive sleep apnea syndrome Pamela Mishra MD Onset: 03/28/2015 Obesity Pamela Mishra MD Onset: 03/28/2015 Social History Type Date Description Comments Sex Unknown Tobacco Use Start: Unknown Never Smoked Cigarettes Smoking Status Reviewed: 07/26/19 Never Smoked Cigarettes ETOH Use Denies alcohol use Tobacco Use Start: Unknown Patient has never smoked Recreational Drug Use Denies Drug Use Exercise Type/Frequency Exercises rarely Allergies, Adverse Reactions, Alerts Description No Known Drug Allergies Medications Active Medications SIG Qnty Indications Ordering Date Provider Metoprolol Succinate 1 by mouth every day Unknown 01/05/2015 ER 50mg Tablets ER 24HR Lyrica 1 by mouth three Unknown 01/05/2015 50mg Capsules times a day Torsemide 2 po bid Unknown 01/05/2015 20mg Tablets Spironolactone 1 by mouth every day Unknown 01/05/2015 25mg Tablets Pramipexole take one tablet by Unknown 01/05/2015 Dihydrochloride mouth at bedtime 1mg Tablets Multi Vitamin Daily Unknown 01/05/2015 Tablets Atorvastatin Calcium 1 by mouth every day Unknown 01/05/2015 20mg Tablets Tamsulosin HCL 1 by mouth every day Unknown 0.4mg Capsules Warfarin Sodium 1 tab by mouth every Unknown 4mg day or as directed, Tablets alternates with 2 mg and 3 mg. Miralax 17 grams by mouth Unknown Powder every day as needed Zofran take 1 tab every 6 Unknown 4mg Tablets hours as needed for vomiting. Magnesium Hydroxide 30 ml. daily Unknown Powder Novolin R scale Unknown 100Unit/ML Solution Lantus 40 units daily Unknown 100Unit/ML Solution Colace 1 tab by mouth 2 Unknown 100mg Capsules times a day Cyanocobalamin one intramuscular Unknown 1000mcg/ML weekly x 4 Solution Santyl apply thin layer Unknown 250Unit/GM daily to wound bed Ointment only Cephalexin Q. 8 hours PO Unknown 500mg Capsules Dulcolax 2 by mouthPRN Unknown 5mg Tablets DR Acetaminophen ER Q. 4 hours prn Unknown 650mg Tablets ER Immunizations CPT Code Status Date Vaccine Lot # [id number] Given 03/28/2015 Influenza Virus 3Yrs & Over Vital Signs Date Vital Result Comment 07/26/2019 11:50am Heart Rate 72 /min BP Systolic Sitting 112 mmHg left-lg BP Diastolic Sitting 74 mmHg left-lg Respiratory Rate 20 /min Body Temperature 97.0 F O2 % BldC Oximetry 95 % 07/11/2015 10:07am Height 64 inches 5'4" Weight 264.00 lb Heart Rate 75 /min BP Systolic Sitting 122 mmHg BP Diastolic Sitting 72 mmHg Respiratory Rate 18 /min O2 % BldC Oximetry 96 % BMI (Body Mass Index) 45.3 kg/m2 Results Description No Information Available Procedures Date Code Description Status 07/03/2019 99429 EKG, Interpretation Only Completed 07/02/2019 22376 EKG, Interpretation Only Completed 07/02/2019 95601 Perm Pacemaker Ventricular Completed 06/29/2019 89550 EKG, Interpretation Only Completed 06/28/2019 12435 EKG, Interpretation Only Completed Medical Devices Description No Information Available Encounters Type Date Location Provider Dx Diagnosis Office Visit 07/26/2019 [facility] Prakash D. I48.20 Chronic atrial 12:15p Cardiology Avila Manrique fibrillation, unspecified I42.0 Dilated cardiomyopathy I50.9 Heart failure, unspecified Z95.0 Presence of cardiac pacemaker Office Visit 07/12/2019 [facility] I50.23 Acute on chronic 2:28p gayatri Marshall MD systolic Hospitalists (congestive) heart failure L03.115 Cellulitis of right lower limb I48.91 Unspecified atrial fibrillation Office Visit 07/11/2019 [facility] L03.115 Cellulitis of 8:30a For Infectious Perera, MENTAL TESTER right lower limb Diseases E11.69 Type 2 diabetes mellitus with other specified complication M86.671 Other chronic osteomyelitis, right ankle and foot E11.40 Type 2 diabetes mellitus with diabetic neuropathy, unsp Office Visit 07/11/2019 [facility] I50.23 Acute on chronic 2:28p gayatri Marshall MD systolic Hospitalists (congestive) heart failure Z95.0 Presence of cardiac pacemaker Office Visit 07/10/2019 [facility] I50.23 Acute on chronic 2:27p gayatri Marshall MD systolic Hospitalists (congestive) heart failure I73.9 Peripheral vascular disease, unspecified G47.33 Obstructive sleep apnea (adult) (pediatric) 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) Office Visit 07/09/2019 [facility] L03.115 Cellulitis of 8:29a For Infectious Perera, MENTAL TESTER right lower limb Diseases E11.69 Type 2 diabetes mellitus with other specified complication M86.671 Other chronic osteomyelitis, right ankle and foot E11.40 Type 2 diabetes mellitus with diabetic neuropathy, unsp Office Visit 07/09/2019 [facility] I50.23 Acute on chronic 2:27p gayatri Marshall MD systolic Hospitalists (congestive) heart failure I73.9 Peripheral vascular disease, unspecified R33.9 Retention of urine, unspecified Z95.0 Presence of cardiac pacemaker Office Visit 07/08/2019 [facility] I50.23 Acute on chronic 2:27p gayatri Marshall PA systolic Hospitalists (congestive) heart failure R41.82 Altered mental status, unspecified R33.9 Retention of urine, unspecified I73.9 Peripheral vascular disease, unspecified E11.9 Type 2 diabetes mellitus without complications E78.5 Hyperlipidemia, unspecified Office Visit 07/07/2019 [facility] I11.0 Hypertensive 2:26p Assoc,SHERWIN Altman heart disease Hospitalists with heart failure I50.23 Acute on chronic systolic (congestive) heart failure I48.91 Unspecified atrial fibrillation I73.9 Peripheral vascular disease, unspecified E11.9 Type 2 diabetes mellitus without complications E78.5 Hyperlipidemia, unspecified Office Visit 07/06/2019 [place] Telly Garcia, I48.91 Unspecified 4:22p Cardiology [facility] atrial Promotions Specialist fibrillation Office Visit 07/06/2019 [facility] Paula Yoon L03.115 Cellulitis of 10:44a For Infectious Perera, MENTAL TESTER right lower limb Diseases E11.69 Type 2 diabetes mellitus with other specified complication M86.671 Other chronic osteomyelitis, right ankle and foot E11.40 Type 2 diabetes mellitus with diabetic neuropathy, unsp Office Visit 07/06/2019 [facility] I11.0 Hypertensive 2:26p Assoc,SHERWIN Altman heart disease Hospitalists with heart failure I50.23 Acute on chronic systolic (congestive) heart failure I73.9 Peripheral vascular disease, unspecified D69.6 Thrombocytopenia, unspecified E11.9 Type 2 diabetes mellitus without complications Office Visit 07/05/2019 [facility] I11.0 Hypertensive 2:26p Assoc,SHERWIN Altman heart disease Hospitalists with heart failure I50.23 Acute on chronic systolic (congestive) heart failure D69.6 Thrombocytopenia, unspecified I73.9 Peripheral vascular disease, unspecified E11.9 Type 2 diabetes mellitus without complications Office Visit 07/05/2019 [place] Telly Gonzalez I42.9 Cardiomyopathy, 4:21p Cardiology Of DO Jose unspecified Promotions Specialist FACC I50.9 Heart failure, unspecified I48.91 Unspecified atrial fibrillation Office Visit 07/04/2019 2:25p Intensivists Virginie Pittman I50.811 Acute right Doto, MENTAL TESTER heart failure I48.91 Unspecified atrial fibrillation D69.6 Thrombocytopenia, unspecified I73.9 Peripheral vascular disease, unspecified [facility] L03.115 Cellulitis of 10:43a For Infectious ISSA Perera right lower limb Diseases M86.671 Other chronic osteomyelitis, right ankle and foot E11.69 Type 2 diabetes mellitus with other specified complication E11.40 Type 2 diabetes mellitus with diabetic neuropathy, unsp Office Visit 07/04/2019 1:27p Raiza King, I48.21 Permanent atrial Cardiology Of M.D. fibrillation Promotions Specialist I27.20 Pulmonary hypertension, unspecified Office Visit 07/03/2019 [facility] I11.0 Hypertensive 2:25p Assoc,gayatri Cornejo, PA heart disease Hospitalists with heart failure I50.23 Acute on chronic systolic (congestive) heart failure L03.115 Cellulitis of right lower limb I95.9 Hypotension, unspecified Z95.0 Presence of cardiac pacemaker D69.6 Thrombocytopenia, unspecified Office Visit 07/03/2019 8:15a Wound Care Paula Yoon E11.622 Type 2 diabetes [facility] ISSA Perera mellitus with other skin ulcer L97.929 Non-prs chronic ulc unsp prt of l low leg w unsp severity E66.01 Morbid (severe) obesity due to excess calories Office Visit 07/03/2019 10:37a [facility] Jorge Alvarado L03.115 Cellulitis of For Kenton Fam M.D. right lower limb Diseases E11.40 Type 2 diabetes mellitus with diabetic neuropathy, unsp Office Visit 07/02/2019 2:24p Intensivists Lissy Espinoza, I50.811 Acute right [employer]ING [employer]ING ASSEMBLER heart failure I73.9 Peripheral vascular disease, unspecified D69.6 Thrombocytopenia, unspecified E87.70 Fluid overload, unspecified Office Visit 07/02/2019 [facility] Paula Yoon L03.115 Cellulitis of 10:36a For Infectious ISSA Perera right lower limb Diseases E11.51 Type 2 diabetes w diabetic peripheral angiopath w/o gangrene E11.40 Type 2 diabetes mellitus with diabetic neuropathy, unsp Office Visit 07/01/2019 2:23p Intensivists Lissy Espinoza, I50.811 Acute right [employer]ER heart failure I48.91 Unspecified atrial fibrillation D69.6 Thrombocytopenia, unspecified I73.9 Peripheral vascular disease, unspecified E87.70 Fluid overload, unspecified Office Visit 07/01/2019 3:03p [place] Sonu Gaytan I48.91 Unspecified atrial Cardiology Avila Sanchez fibrillation I49.5 Sick sinus syndrome I50.9 Heart failure, unspecified I10 Essential (primary) hypertension Office Visit 06/30/2019 3:01p [facility] Sonu Gaytan I50.9 Heart failure, Avila Sanchez unspecified I49.5 Sick sinus syndrome I36.1 Nonrheumatic tricuspid (valve) insufficiency I48.91 Unspecified atrial fibrillation I42.9 Cardiomyopathy, unspecified Office Visit 06/30/2019 2:22p Intensivists Lissy Espinoza I50.811 Acute right [employer]ER heart failure I48.91 Unspecified atrial fibrillation D69.6 Thrombocytopenia, unspecified I73.9 Peripheral vascular disease, unspecified E87.70 Fluid overload, unspecified Office Visit 06/29/2019 2:20p Intensivists Virginie Pittman I11.0 Hypertensive heart Ailyn MENTAL TESTER disease with heart failure I50.811 Acute right heart failure I49.5 Sick sinus syndrome L03.115 Cellulitis of right lower limb D69.6 Thrombocytopenia, unspecified I73.9 Peripheral vascular disease, unspecified Office Visit 06/29/2019 [facility] Paula Yoon L03.115 Cellulitis of 10:34a For Infectious ISSA Perera right lower limb Diseases E11.51 Type 2 diabetes w diabetic peripheral angiopath w/o gangrene E11.40 Type 2 diabetes mellitus with diabetic neuropathy, unsp Office Visit 06/29/2019 8:35p Wound Care Paula Yoon L97.929 Non- prs chronic [facility] ISSA Perera [facility] unsp prt of l low leg w unsp severity E11.621 Type 2 diabetes mellitus with foot ulcer E66.01 Morbid (severe) obesity due to excess calories Office Visit 06/28/2019 [facility] L03.115 Cellulitis of 2:20p Assgayatri patrick PA right lower Hospitalists limb I11.0 Hypertensive heart disease with heart failure I50.23 Acute on chronic systolic (congestive) heart failure I48.91 Unspecified atrial fibrillation D69.6 Thrombocytopenia, unspecified E11.649 Type 2 diabetes mellitus with hypoglycemia without coma Office Visit 06/28/2019 1:58p [place] Armida Salguero, L03.115 Cellulitis of [facility]oped[facility] at [facility]- right lower limb [place] 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) Office Visit 06/27/2019 2:19p [facility] I50.9 Heart failure, Assoc,pc Tay, [employer]ARING RING ASSEMBLER unspecified Hospitalists I11.0 Hypertensive heart disease with heart failure D69.6 Thrombocytopenia, unspecified E11.9 Type 2 diabetes mellitus without complications Office Visit 06/19/2019 [facility] Edwina E11.649 Type 2 diabetes 11:11a Assoc,pc EVA Adams mellitus with Hospitalists hypoglycemia without coma R68.0 Hypothermia, not associated w low environmental temperature Office Visit 06/18/2019 [facility] E11.649 Type 2 diabetes 11:11a Assoc,gayatri King NP mellitus with Hospitalists hypoglycemia without coma Assessments Date Code Description Provider 07/26/2019 I48.20 Chronic atrial fibrillation Prakash Manrique M.D. 07/26/2019 I42.0 Dilated cardiomyopathy Prakash Manrique M.D. 07/26/2019 I50.9 Congestive heart failure Prakash Manrique M.D. 07/26/2019 Z95.0 Cardiac pacemaker in situ Prakash Manrique M.D. 07/12/2019 I50.23 Acute on chronic systolic Yoon Bolanos MD (congestive) heart failure 07/12/2019 L03.115 Cellulitis of right lower limb Yoon Bolanos MD 07/12/2019 I48.91 Unspecified atrial fibrillation Yoon Bolanos MD 07/11/2019 I50.23 Acute on chronic systolic Yoon Bolanos MD (congestive) heart failure 07/11/2019 L03.115 Cellulitis of right lower limb Paula Perera NP 07/11/2019 Z95.0 Presence of cardiac pacemaker Yoon Bolanos MD 07/11/2019 E11.69 Type 2 diabetes mellitus with other Paula Perera NP specified complication 07/11/2019 M86.671 Other chronic osteomyelitis, right Paula Perera NP ankle and foot 07/11/2019 E11.40 Type 2 diabetes mellitus with Paula Perera NP diabetic neuropathy, unspecified 07/10/2019 I50.23 Acute on chronic systolic Yoon Bolanos MD (congestive) heart failure 07/10/2019 I73.9 Peripheral vascular disease, Yoon Bolanos MD unspecified 07/10/2019 G47.33 Obstructive sleep apnea (adult) Yoon Bolanos MD (pediatric) 07/10/2019 Z89.421 Acquired absence of other right Yoon Bolanos MD toe(s) 07/09/2019 I50.23 Acute on chronic systolic Yoon Bolanos MD (congestive) heart failure 07/09/2019 I73.9 Peripheral vascular disease, Yoon Bolanos MD unspecified 07/09/2019 L03.115 Cellulitis of right lower limb Paula Perera NP 07/09/2019 R33.9 Retention of urine, unspecified Yoon Bolanos MD 07/09/2019 Z95.0 Presence of cardiac pacemaker Yoon Bolanos MD 07/09/2019 E11.69 Type 2 diabetes mellitus with other Paula Perera NP specified complication 07/09/2019 M86.671 Other chronic osteomyelitis, right Paula Perera NP ankle and foot 07/09/2019 E11.40 Type 2 diabetes mellitus with Paual Perera NP diabetic neuropathy, unspecified 07/08/2019 I50.23 Acute on chronic systolic SHERWIN Calzada (congestive) heart failure 07/08/2019 R41.82 Altered mental status, unspecified SHERWIN Calzada 07/08/2019 R33.9 Retention of urine, unspecified SHERWIN Calzada 07/08/2019 I73.9 Peripheral vascular disease, SHERWIN Calzada unspecified 07/08/2019 E11.9 Type 2 diabetes mellitus without SHERWIN Calzada complications 07/08/2019 E78.5 Hyperlipidemia, unspecified SHERWIN Calzada 07/07/2019 I11.0 Hypertensive heart disease with SHERWIN Calzada heart failure 07/07/2019 I50.23 Acute on chronic systolic Angelicgenny Cornejo, PA (congestive) heart failure 07/07/2019 I48.91 Unspecified atrial fibrillation Angelicgenny Cornejo, PA 07/07/2019 I73.9 Peripheral vascular disease, Angelic Cornejo, PA unspecified 07/07/2019 E11.9 Type 2 diabetes mellitus without Angelic Cornejo, PA complications 07/07/2019 E78.5 Hyperlipidemia, unspecified Angelicgenny Canoham, PA 07/06/2019 I48.91 Unspecified atrial fibrillation Telly Garcia, DO FACC 07/06/2019 I11.0 Hypertensive heart disease with Angelicgenny Cornejo, PA heart failure 07/06/2019 L03.115 Cellulitis of right lower limb Paula Perera, ISSA 07/06/2019 I50.23 Acute on chronic systolic Angelicgenny Cornejo, PA (congestive) heart failure 07/06/2019 E11.69 Type 2 diabetes mellitus with other Paula Perera NP specified complication 07/06/2019 I73.9 Peripheral vascular disease, Angelicgenny Cornejo, PA unspecified 07/06/2019 M86.671 Other chronic osteomyelitis, right Paula Perera, ISSA ankle and foot 07/06/2019 D69.6 Thrombocytopenia, unspecified Angelic Cornejo, PA 07/06/2019 E11.40 Type 2 diabetes mellitus with Paula Perera NP diabetic neuropathy, unspecified 07/06/2019 E11.9 Type 2 diabetes mellitus without Angelicgenny Cornejo, PA complications 07/05/2019 I42.9 Cardiomyopathy, unspecified Telly Garcia, DO FACC 07/05/2019 I50.9 Heart failure, unspecified Telly Garcia, DO FACC 07/05/2019 I48.91 Unspecified atrial fibrillation Telly Garcia, DO FACC 07/05/2019 I11.0 Hypertensive heart disease with Angelicgenny Cornejo, PA heart failure 07/05/2019 I50.23 Acute on chronic systolic Angelicgenny Cornejo, PA (congestive) heart failure 07/05/2019 D69.6 Thrombocytopenia, unspecified Angelicgenny Cornejo, PA 07/05/2019 I73.9 Peripheral vascular disease, Angelicgenny McconnellCornejo, PA unspecified 07/05/2019 E11.9 Type 2 diabetes mellitus without SHERWIN Calzada complications 07/04/2019 I48.21 Permanent atrial fibrillation Kathi King M.D. 07/04/2019 I27.20 Pulmonary hypertension, unspecified Kathi King M.D. 07/04/2019 I50.811 Acute right heart failure Virginie Robertson NP 07/04/2019 L03.115 Cellulitis of right lower limb Paula Perera, ISSA 07/04/2019 I48.91 Unspecified atrial fibrillation Virginie Robertson NP 07/04/2019 M86.671 Other chronic osteomyelitis, right Paula Perera NP ankle and foot 07/04/2019 D69.6 Thrombocytopenia, unspecified Virginie Robertson NP 07/04/2019 E11.69 Type 2 diabetes mellitus with other Paula Perera NP specified complication 07/04/2019 I73.9 Peripheral vascular disease, Virginie Robertson NP unspecified 07/04/2019 E11.40 Type 2 diabetes mellitus with Paula Perera NP diabetic neuropathy, unspecified 07/03/2019 E11.622 Type 2 diabetes mellitus with other Paula Perera NP skin ulcer 07/03/2019 I11.0 Hypertensive heart disease with SHERWIN Calzada heart failure 07/03/2019 Z95.0 Presence of cardiac pacemaker Eric Neville M.D., [facility] 07/03/2019 I50.23 Acute on chronic systolic SHERWIN Calzada (congestive) heart failure 07/03/2019 L97.929 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 with unspecified severity 07/03/2019 L03.115 Cellulitis of right lower limb SHERWIN Calzada 07/03/2019 E66.01 Morbid (severe) obesity due to Paula Perera NP excess calories 07/03/2019 L03.115 Cellulitis of right lower limb Jorge Fam M.D. 07/03/2019 I95.9 Hypotension, unspecified Angelic Cornejo, PA 07/03/2019 Z95.0 Presence of cardiac pacemaker SHERWIN Calzada 07/03/2019 E11.40 Type 2 diabetes mellitus with Jorge Fam M.D. diabetic neuropathy, unspecified 07/03/2019 D69.6 Thrombocytopenia, unspecified SHERWIN Calzada 07/02/2019 I49.5 Sick sinus syndrome Prakash Manrique M.D. 07/02/2019 I50.811 Acute right heart failure Lissy Stocking, [employer]SEMBLER 07/02/2019 R94.31 Abnormal electrocardiogram [ECG] Eric Neville M.D., [facility], [EKG] [facility] 07/02/2019 I73.9 Peripheral vascular disease, Lissy Stocking, [employer] ASSEMBLER unspecified 07/02/2019 L03.115 Cellulitis of right lower limb Paula Perera NP 07/02/2019 D69.6 Thrombocytopenia, unspecified Lissy Stocking, [employer]ER 07/02/2019 E11.51 Type 2 diabetes mellitus with Paula Perera NP diabetic peripheral angiopathy without gangrene 07/02/2019 E87.70 Fluid overload, unspecified Lissy Stocking, [employer]ER 07/02/2019 E11.40 Type 2 diabetes mellitus with Paula Perera, ISSA diabetic neuropathy, unspecified 07/01/2019 I48.91 Unspecified atrial fibrillation Sonu Sanchez M.D. 07/01/2019 I50.811 Acute right heart failure Lissy Stocking, [employer]ER 07/01/2019 I49.5 Sick sinus syndrome Sonu Sanchez M.D. 07/01/2019 I48.91 Unspecified atrial fibrillation Lissy Stocking, [employer]ER 07/01/2019 I50.9 Heart failure, unspecified Sonu Sanchez M.D. 07/01/2019 D69.6 Thrombocytopenia, unspecified Lissy Stocking, [employer]ER 07/01/2019 I10 Essential (primary) hypertension Sonu Sanchez M.D. 07/01/2019 I73.9 Peripheral vascular disease, Lissy Stocking, BE[employer] AS[employer]ER unspecified 07/01/2019 E87.70 Fluid overload, unspecified Lissy Stocking, [employer] AS[employer]ER 06/30/2019 I50.9 Heart failure, unspecified Sonu Sanchez M.D. 06/30/2019 I50.811 Acute right heart failure Lissy Stocking, [employer]ING [employer] AS[employer]BLER 06/30/2019 I49.5 Sick sinus syndrome Sonu Sanchez M.D. 06/30/2019 I48.91 Unspecified atrial fibrillation Lissy Stocking, BE[employer] ASSEMBLER 06/30/2019 I36.1 Nonrheumatic tricuspid (valve) Sonu Sanchez M.D. insufficiency 06/30/2019 D69.6 Thrombocytopenia, unspecified Lissy Stocking, [employer] ASSEMBLER 06/30/2019 I48.91 Unspecified atrial fibrillation Sonu Sanchez M.D. 06/30/2019 I73.9 Peripheral vascular disease, Lissy Stocking, BE[employer] AS[employer]BLER unspecified 06/30/2019 I42.9 Cardiomyopathy, unspecified Sonu Sanchez M.D. 06/30/2019 E87.70 Fluid overload, unspecified Lissy Stocking, [employer] ASSEM[employer]ER 06/29/2019 I11.0 Hypertensive heart disease with Virginie Robertson NP heart failure 06/29/2019 I50.811 Acute right heart failure Virginie Robertson, ISSA 06/29/2019 R94.31 Abnormal electrocardiogram [ECG] Sonu Sanchez M.D. [EKG] 06/29/2019 I49.5 Sick sinus syndrome Virginie Robertson, MENTAL TESTER 06/29/2019 L03.115 Cellulitis of right lower limb Paula Perera, MENTAL TESTER 06/29/2019 L03.115 Cellulitis of right lower limb Virginie Robertson, MENTAL TESTER 06/29/2019 L97.929 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 with unspecified severity 06/29/2019 D69.6 Thrombocytopenia, unspecified Virginie Robertson, MENTAL TESTER 06/29/2019 E11.51 Type 2 diabetes mellitus with Paula Perera NP diabetic peripheral angiopathy without gangrene 06/29/2019 I73.9 Peripheral vascular disease, Virginie Pittman Ailyn, ISSA unspecified 06/29/2019 E11.621 Type 2 diabetes mellitus with foot Paula Perera NP ulcer 06/29/2019 E11.40 Type 2 diabetes mellitus with Paula Perera NP diabetic neuropathy, unspecified 06/29/2019 E66.01 Morbid (severe) obesity due to Paula Perera NP excess calories 06/28/2019 L03.115 Cellulitis of right lower limb SHERWIN Calzada 06/28/2019 R94.31 Abnormal electrocardiogram [ECG] Master Allen MD, FACC, [EKG] FSCAI 06/28/2019 I11.0 Hypertensive heart disease with SHERWIN Calzada heart failure 06/28/2019 I50.23 Acute on chronic systolic SHERWIN Calzada (congestive) heart failure 06/28/2019 L03.115 Cellulitis of right lower limb Armida Salguero RPA-C 06/28/2019 I48.91 Unspecified atrial fibrillation SHERWIN Calzada 06/28/2019 Z89.421 Acquired absence of other right Armida Salguero RPA-C toe(s) 06/28/2019 D69.6 Thrombocytopenia, unspecified SHERWIN Calzada 06/28/2019 E11.649 Type 2 diabetes mellitus with SHERWIN Calzada hypoglycemia without coma 06/27/2019 I50.9 Heart failure, unspecified SADE Rainey 06/27/2019 I11.0 Hypertensive heart disease with SADE Rainey heart failure 06/27/2019 D69.6 Thrombocytopenia, unspecified ELAINE RaineyP 06/27/2019 E11.9 Type 2 diabetes mellitus without SADE Rainey complications 06/19/2019 E11.649 Type 2 diabetes mellitus with Edwinamaria isabel Adams PA-C hypoglycemia without coma 06/19/2019 R68.0 Hypothermia, not associated with low Edwina Adams PA-C environmental temperature 06/18/2019 E11.649 Type 2 diabetes mellitus with Jigna King NP hypoglycemia without coma Plan of Treatment 07/26/2019 - Prakash Manrique M.D.I48.20 Chronic atrial fibrillationNew Orders: Interrogation Pacemaker, Ordered: 07/26/19Follow up:2 rrqevnR37.0 Dilated walikubtxeqtieZ40.9 Congestive heart spljwleS12.0 Cardiac pacemaker in situ Functional Status Description No Information Available Mental Status Description No Information Available Referrals Description No Information Available
--- OUTSIDE RECORDS SUMMARY | 2019-08-26 04:57 | XMS REPORT | Continuity of Care Document ---
:1940 External Reference #:[id number] Author Name Jessica Velasquez NP (transmitted by agent of provider Chiquita Barber) Address [address] [place] [address] Care Team Providers Name Role Phone Augustine Poon MD - Orthopaedic Care Team Information Global Logistics Analyst Surgery Damaso Sylvester MD - Internal Care Team Information Global Logistics Analyst Medicine Jorge Fam MD - Infectious Care Team Information Global Logistics Analyst [phone] Disease Problems Active Problems Provider Date Disturbance in sleep behavior Pamela Mishra MD Onset: 01/06/2015 Morbid obesity Pamela Mishra MD Onset: 01/06/2015 Obstructive sleep apnea syndrome Pamela Mishra MD Onset: 03/28/2015 Obesity Pamela Mishra MD Onset: 03/28/2015 Social History Type Date Description Comments Sex Unknown Tobacco Use Start: Unknown Never Smoked Cigarettes ETOH Use Denies alcohol use Tobacco Use Start: Unknown Patient has never smoked Recreational Drug Use Denies Drug Use Exercise Type/Frequency Exercises rarely Allergies, Adverse Reactions, Alerts Description No Known Drug Allergies Medications Active Medications SIG Qnty Indications Ordering Provider Date Eliquis 1 by mouth twice Unknown 03/27/2015 5mg Tablets a day Metoprolol Succinate ER 1 by mouth every Unknown 01/05/2015 50mg day Tablets ER 24HR Glimepiride 1 1/2 tabs by Unknown 01/05/2015 2mg Tablets mouth bid Lyrica 1 by mouth three Unknown 01/05/2015 50mg Capsules times a day Torsemide 1 po bid Unknown 01/05/2015 20mg Tablets Spironolactone 1 by mouth every Unknown 01/05/2015 25mg Tablets day Lisinopril 1 by mouth every Unknown 01/05/2015 10mg Tablets day Pramipexole take one tablet Unknown 01/05/2015 Dihydrochloride by mouth at 1mg Tablets bedtime Multi Vitamin Daily Unknown 01/05/2015 Tablets Iron Complex qd Unknown 01/05/2015 65mg Capsules B-12 (Methylcobalamin) 1 by mouth every Unknown 01/05/2015 day 1000mcg Tablets Sub Atorvastatin Calcium 1 by mouth every Unknown 01/05/2015 40mg day Tablets Immunizations CPT Code Status Date Vaccine Lot # [id number] Given 03/28/2015 Influenza Virus 3Yrs & Over Vital Signs Date Vital Result Comment 07/11/2015 10:07am Height 64 inches 5'4" Weight 264.00 lb Heart Rate 75 /min BP Systolic Sitting 122 mmHg BP Diastolic Sitting 72 mmHg Respiratory Rate 18 /min O2 % BldC Oximetry 96 % BMI (Body Mass Index) 45.3 kg/m2 05/12/2015 8:15am Height 64 inches 5'4" Weight 260.00 lb Heart Rate 78 /min BP Systolic Sitting 116 mmHg left arm, large cuff BP Diastolic Sitting 76 mmHg left arm, large cuff BP Systolic Standing 106 mmHg left arm, large cuff BP Diastolic Standing 74 mmHg left arm, large cuff Respiratory Rate 20 /min BMI (Body Mass Index) 44.6 kg/m2 Results Description No Information Available Procedures Description No Information Available Medical Devices Description No Information Available Encounters Type Date Location Provider Dx Diagnosis Office Visit 06/18/2019 [facility] E11.649 Type 2 diabetes 11:11a Assoc,gayatri King NP mellitus with Hospitalists hypoglycemia without coma Assessments Date Code Description Provider 06/29/2019 L97.929 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 with unspecified severity 06/29/2019 E11.621 Type 2 diabetes mellitus with foot Paula Perera NP ulcer 06/29/2019 E66.01 Morbid (severe) obesity due to excess Paula Perera NP calories 06/19/2019 E11.649 Type 2 diabetes mellitus with Edwina Adams PA-C hypoglycemia without coma 06/19/2019 R68.0 Hypothermia, not associated with low Edwina Adams PA-C environmental temperature 06/18/2019 E11.649 Type 2 diabetes mellitus with Jigna King NP hypoglycemia without coma Plan of Treatment 07/11/2015 - Daniela Ford DNP, RN, MANAGER FINANCIAL PLANNING-[id number] Obstructive sleep apnea ( adult) (pediatric)Follow up:2 monthsRecommendations:Moderate sleep apnea to continue CPAP auto min 6 to 12 cm. You may need an in-lab CPAP titration, due to compliance. Will check download in a few weeks and if you still are having elevated AHI you will need an in-lab study. If you have any sleepiness while driving you MUST avoid operating a vehicle or machinery. If you have difficulty with your equipment, or need to replace your mask or hoses, please contact your homecare agency. A weight change of 20 pounds or more may have an effect on your equipment; if you are experiencing problems please call for an appointment. If you have any further questions, please call the [facility] at [phone].e66.9 Obesity, unspecifiedRecommendations:Continue to work on weight loss Functional Status Description No Information Available Mental Status Description No Information Available Referrals Description No Information Available
--- OUTSIDE RECORDS SUMMARY | 2019-08-26 04:57 | XMS REPORT | Continuity of Care Document ---
:1940 External Reference #:[id number] Author Name Sonu Sanchez M.D. (transmitted by agent of provider Edwina Freedman ) Address [address] [place] [id number] Care Team Providers Name Role Phone Augustine Poon MD - Orthopaedic Care Team Information Securities Broker [phone] Surgery Damaso Sylvester MD - Internal Care Team Information Securities Broker [phone] Medicine Jorge Fam MD - Infectious Care Team Information Securities Broker [phone] Disease Problems Active Problems Provider Date Disturbance [...] CPT Code Status Date Vaccine Lot # [id number] Given 03/28/2015 Influenza Virus 3Yrs & Over [...] Location Provider Dx Diagnosis Office Visit 06/18/2019 [facility] E11.649 Type 2 diabetes 11:11a Assoc,gayatri King NP mellitus with Hospitalists hypoglycemia without coma Assessments Date Code Description Provider 06/19/2019 E11.649 Type 2 diabetes mellitus with hypoglycemia Edwina sung PA-C without coma 06/19/2019 R68.0 Hypothermia, not associated with low Edwina Adams PA-C environmental temperature 06/18/2019 E11.649 Type 2 diabetes mellitus with hypoglycemia Jigna King NP without coma Plan of Treatment 07/11/2015 - Daniela Ford, DNP, RN, COMPUTER SYSTEMS HARDWARE ANALYST-[id number] Obstructive sleep apnea ( adult) (pediatric)Follow up:2 [...] please call the [facility] at [phone].E66.9 Obesity, unspecifiedRecommendations:Continue to work on weight loss Functional Status Description No Information Available Mental Status Description No Information Available Referrals Description No Information Available
--- OUTSIDE RECORDS SUMMARY | 2019-08-26 04:57 | XMS REPORT | Continuity of Care Document ---
:1940 External Reference #:[id number] Author Name Sonu Sanchez M.D. (transmitted by agent of provider Edwina Freedman ) Address [address] [place] [id number] Care Team Providers Name Role Phone Augustine Poon MD - Orthopaedic Care Team Information Mathematics Lecturer Surgery Damaso Sylvester MD - Internal Care Team Information Mathematics Lecturer Medicine Jorge Fam MD - Infectious Care Team Information Mathematics Lecturer Disease Problems Active Problems Provider Date Disturbance [...] CPT Code Status Date Vaccine Lot # [id number] Given 03/28/2015 Influenza Virus 3Yrs & Over [...] Location Provider Dx Diagnosis Office Visit 06/18/2019 [facility] E11.649 Type 2 diabetes 11:11a Assoc,gayatri [...] Treatment 07/11/2015 - Daniela Ford, DNP, RN, ASSISTANT BROKER-[id number] Obstructive sleep apnea ( adult) (pediatric)Follow up:2 [...] please call the [facility] at [phone].E66.9 Obesity, unspecifiedRecommendations:Continue to work on weight loss Functional Status Description No Information Available Mental Status Description No Information Available Referrals Description No Information Available
--- OUTSIDE RECORDS SUMMARY | 2019-08-26 04:57 | XMS REPORT | Continuity of Care Document ---
:1940 External Reference #:[id number] Author Name Master Allen MD, [facility] (transmitted by agent of provider Edwina Freedman) Address [address] [address] Care Team Providers Name Role Phone Augustine Poon MD - Orthopaedic Care Team Information Seed Technician [phone] Surgery Damaso Sylvester MD - Internal Care Team Information Seed Technician Medicine Jorge Fam MD - Infectious Care Team Information Seed Technician [phone] Disease Problems Active Problems Provider Date Disturbance [...] CPT Code Status Date Vaccine Lot # [id number] Given 03/28/2015 Influenza Virus 3Yrs & Over [...] Location Provider Dx Diagnosis Office Visit 06/18/2019 [facility] E11.649 Type 2 diabetes 11:11a [...] Treatment 07/11/2015 - Daniela Ford, DNP, RN, SENIOR INTERACTIVE DEVELOPER-[id number] Obstructive sleep apnea ( adult) (pediatric)Follow up:2 [...] please call the [facility] at [phone].E66.9 Obesity, unspecifiedRecommendations:Continue to work on weight loss Functional Status Description No Information Available Mental Status Description No Information Available Referrals Description No Information Available
--- OUTSIDE RECORDS SUMMARY | 2019-08-26 04:57 | XMS REPORT | Continuity of Care Document ---
:1940 External Reference #:[id number] Author Name Prakash Manrique M.D. (transmitted by agent of provider Julita Shaffer) Address [address] [place] [address] Care Team Providers Name Role Phone Damaso Sylvester MD - Internal Care Team Information Remote Control Assembler Medicine Jorge Fam MD - Infectious Care Team Information Remote Control Assembler [phone] Disease Dylan Michel MD - Care Team Information Remote Control Assembler [phone] Cardiovascular Disease Problems Active Problems Provider Date Disturbance [...] CPT Code Status Date Vaccine Lot # [id number] Given 03/28/2015 Influenza Virus 3Yrs & Over [...] Available Procedures Date Code Description Status 07/03/2019 47196 EKG, Interpretation Only Completed 07/02/2019 06914 EKG, Interpretation Only Completed 07/02/2019 65195 Perm Pacemaker Ventricular Completed 06/29/2019 34862 EKG, Interpretation Only Completed 06/28/2019 86697 EKG, Interpretation Only Completed Medical Devices Description No Information Available Encounters Type Date Location Provider Dx Diagnosis Office Visit 07/26/2019 Ryan Alvarado I48.20 Chronic atrial 12:15p Cardiology Avila Manrique fibrillation, unspecified I42.0 Dilated cardiomyopathy I50.9 Heart failure, unspecified Z95.0 Presence of cardiac pacemaker Office Visit 07/12/2019 [facility] I50.23 Acute on chronic 2:28p gayatri Marshall MD systolic Hospitalists (congestive) heart failure L03.115 Cellulitis of right lower limb I48.91 Unspecified atrial fibrillation [facility]ulitis of 8:30a For Infectious Perera, PATHOLOGY LAB TECHNICIAN right lower limb Diseases E11.69 Type 2 diabetes mellitus with other specified complication M86.671 Other chronic osteomyelitis, right ankle and foot E11.40 Type 2 diabetes mellitus with diabetic neuropathy, unsp Office Visit 07/11/2019 [facility] I50.23 Acute on chronic 2:28p gayatri Marshall MD systolic Hospitalists (congestive) heart failure Z95.0 Presence of cardiac pacemaker Office Visit 07/10/2019 [facility] I50.23 Acute on chronic 2:27p gayatri Marshall MD systolic Hospitalists (congestive) heart failure I73.9 Peripheral vascular disease, unspecified G47.33 Obstructive sleep apnea (adult) (pediatric) 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) [facility] Cellulitis of 8:29a For Infectious Perera, PATHOLOGY LAB TECHNICIAN right lower limb Diseases E11.69 Type 2 diabetes mellitus with other specified complication M86.671 Other chronic osteomyelitis, right ankle and foot E11.40 Type 2 diabetes mellitus with diabetic neuropathy, unsp Office Visit 07/09/2019 [facility] I50.23 Acute on chronic 2:27p gayatri Marshall MD systolic Hospitalists (congestive) heart failure I73.9 Peripheral vascular disease, unspecified R33.9 Retention of urine, unspecified Z95.0 Presence of cardiac pacemaker Office Visit 07/08/2019 [facility] I50.23 Acute on chronic 2:27p Assoc,SHERWIN Altman systolic Hospitalists (congestive) heart failure R41.82 Altered mental status, unspecified R33.9 Retention of urine, unspecified I73.9 Peripheral vascular disease, unspecified E11.9 Type 2 diabetes mellitus without complications E78.5 Hyperlipidemia, unspecified Office Visit 07/07/2019 [facility] I11.0 Hypertensive 2:26p Assoc,SHERWIN Altman heart disease Hospitalists with heart failure I50.23 Acute on chronic systolic (congestive) heart failure I48.91 Unspecified atrial fibrillation I73.9 Peripheral vascular disease, unspecified E11.9 Type 2 diabetes mellitus without complications E78.5 Hyperlipidemia, unspecified Office Visit 07/06/[place], I48.91 Unspecified 4:22p Cardiology [facility] atrial Job Press Feeder fibrillation Office Visit 07/06/2019 [facility] Paula Freirecandyarincarlospatsy L03.115 Cellulitis of 10:44a For Infectious Perera, PATHOLOGY LAB TECHNICIAN right lower limb Diseases E11.69 Type 2 diabetes mellitus with other specified complication M86.671 Other chronic osteomyelitis, right ankle and foot E11.40 Type 2 diabetes mellitus with diabetic neuropathy, unsp Office Visit 07/06/2019 [facility] I11.0 Hypertensive 2:26p Assocgayatri PA heart disease Hospitalists with heart failure I50.23 Acute on chronic systolic (congestive) heart failure I73.9 Peripheral vascular disease, unspecified D69.6 Thrombocytopenia, unspecified E11.9 Type 2 diabetes mellitus without complications Office Visit 07/05/2019 [facility] I11.0 Hypertensive 2:26p Assoc,SHERWIN Altman heart disease Hospitalists with heart failure I50.23 Acute on chronic systolic (congestive) heart failure D69.6 Thrombocytopenia, unspecified I73.9 Peripheral vascular disease, unspecified E11.9 Type 2 diabetes mellitus without complications Office Visit 07/05/2019 Raiza Gonzalez I42.9 Cardiomyopathy, 4:21p Cardiology Of DO Jose unspecified Job [employer] Feeder FACC I50.9 Heart failure, unspecified I48.91 Unspecified atrial fibrillation Office Visit 07/04/2019 2:25p Intensivists Virginie Pittman I50.811 Acute right Doto, PATHOLOGY LAB TECHNICIAN heart failure I48.91 Unspecified atrial fibrillation D69.6 Thrombocytopenia, unspecified I73.9 Peripheral vascular disease, unspecified Office Visit 07/04/2019 [facility] Paula Yoon L03.115 Cellulitis of 10:43a For Infectious Trever PATHOLOGY LAB TECHNICIAN right lower limb Diseases M86.671 Other chronic osteomyelitis, right ankle and foot E11.69 Type 2 diabetes mellitus with other specified complication E11.40 Type 2 diabetes mellitus with diabetic neuropathy, unsp Office Visit 07/04/2019 1:27p Raiza King, I48.21 Permanent atrial Cardiology Of M.D. fibrillation Job [employer] Feeder I27.20 Pulmonary hypertension, unspecified Office Visit 07/03/2019 [facility] I11.0 Hypertensive 2:25p Assoc,SHERWIN Altman heart disease Hospitalists with heart failure I50.23 Acute on chronic systolic (congestive) heart failure L03.115 Cellulitis of right lower limb I95.9 Hypotension, unspecified Z95.0 Presence of cardiac pacemaker D69.6 Thrombocytopenia, unspecified Office Visit 07/03/2019 8:15a Wound Care Paula Yoon E11.622 Type 2 diabetes [facility] [place] Perera mellitus with other skin ulcer L97.929 Non-prs chronic ulc unsp prt of l low leg w unsp severity E66.01 Morbid (severe) obesity due to excess calories Office Visit 07/03/2019 10:37a [facility] Jorge Alvarado L03.115 Cellulitis of For Kenton Fam M.D. right lower limb Diseases E11.40 Type 2 diabetes mellitus with diabetic neuropathy, unsp Office Visit 07/02/2019 2:24p Intensivists Lissy Espinoza, I50.811 Acute right [employer] heart failure I73.9 Peripheral vascular disease, unspecified D69.6 Thrombocytopenia, unspecified E87.70 Fluid overload, unspecified Office Visit 07/02/2019 [facility] Paula Yoon L03.115 Cellulitis of 10:36a For Infectious Trever PATHOLOGY LAB TECHNICIAN right lower limb Diseases E11.51 Type 2 diabetes w diabetic peripheral angiopath w/o gangrene E11.40 Type 2 diabetes mellitus with diabetic neuropathy, unsp Office Visit 07/01/2019 2:23p Intensivists Lissy Stocking, I50.811 Acute right [employer] heart failure I48.91 Unspecified atrial fibrillation D69.6 Thrombocytopenia, unspecified I73.9 Peripheral vascular disease, unspecified E87.70 Fluid overload, unspecified Office Visit 07/01/2019 3:03p [place] Sonu Gaytan I48.91 Unspecified atrial Cardiology Avila Sanchez fibrillation I49.5 Sick sinus syndrome I50.9 Heart failure, unspecified I10 Essential (primary) hypertension Office Visit 06/30/2019 3:01p [place] [facility] Sonu Gaytan I50.9 Heart failure, Avila Sanchez unspecified I49.5 Sick sinus syndrome I36.1 Nonrheumatic tricuspid (valve) insufficiency I48.91 Unspecified atrial fibrillation I42.9 Cardiomyopathy, unspecified Office Visit 06/30/2019 2:22p Intensivists Lissy Espinoza, I50.811 Acute right [employer] heart failure I48.91 Unspecified atrial fibrillation D69.6 Thrombocytopenia, unspecified I73.9 Peripheral vascular disease, unspecified E87.70 Fluid overload, unspecified Office Visit 06/29/2019 2:20p Intensivists Virginie Pittman I11.0 Hypertensive heart ISSA Robertson disease with heart failure I50.811 Acute right heart failure I49.5 Sick sinus syndrome L03.115 Cellulitis of right lower limb D69.6 Thrombocytopenia, unspecified I73.9 Peripheral vascular disease, unspecified Office Visit 06/29/2019 [facility] Paula Yoon L03.115 Cellulitis of 10:34a For Infectious ISSA Perera right lower limb Diseases E11.51 Type 2 diabetes w diabetic peripheral angiopath w/o gangrene E11.40 Type 2 diabetes mellitus with diabetic neuropathy, unsp Office Visit 06/29/2019 8:35p Wound Care Paula Yoon L97.929 Non- prs chronic [place] [facility] [place] Perera [facility] unsp prt of l low leg w unsp severity E11.621 Type 2 diabetes mellitus with foot ulcer E66.01 Morbid (severe) obesity due to excess calories Office Visit 06/28/2019 [facility] L03.115 Cellulitis of 2:20p Assdarnell,SHERWIN Altman right lower Hospitalists limb I11.0 Hypertensive heart disease with heart failure I50.23 Acute on chronic systolic (congestive) heart failure I48.91 Unspecified atrial fibrillation D69.6 Thrombocytopenia, unspecified E11.649 Type 2 diabetes mellitus with hypoglycemia without coma Office Visit 06/28/2019 1:58p [place] Armida Salguero, L03.115 Cellulitis of [facility] right lower limb [place] 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 Edwina E11.649 Type 2 diabetes 11:11a Assoc,gayatri Adams PA-C mellitus with Hospitalists hypoglycemia without coma R68.0 Hypothermia, not associated w low environmental temperature Office Visit 06/18/2019 [facility] E11.649 Type 2 diabetes 11:11a Assoc,gayatri King [...] 07/09/2019 E11.40 Type 2 diabetes mellitus with Paula Perera NP diabetic neuropathy, unspecified 07/08/2019 I50.23 Acute on chronic systolic SHERWIN Calzada (congestive) heart failure 07/08/2019 R41.82 Altered mental status, unspecified SHERWIN Calzada 07/08/2019 R33.9 Retention of urine, unspecified SHERWIN Calzada 07/08/2019 I73.9 Peripheral vascular disease, SHERWIN Calzada unspecified 07/08/2019 E11.9 Type 2 diabetes mellitus without SHERWIN Calzada complications 07/08/2019 E78.5 Hyperlipidemia, unspecified Angelic Cornejo, PA 07/07/2019 I11.0 Hypertensive heart disease with Angelic Cornejo, PA heart failure 07/07/2019 I50.23 Acute on chronic systolic Angelic Cornejo, PA (congestive) heart failure 07/07/2019 I48.91 Unspecified atrial fibrillation Angelic Cornejo, PA 07/07/2019 I73.9 Peripheral vascular disease, Angelic Cornejo, PA unspecified 07/07/2019 E11.9 Type 2 diabetes mellitus without Angelic Cornejo, PA complications 07/07/2019 E78.5 Hyperlipidemia, unspecified Angelic Cornejo, PA 07/06/2019 I48.91 Unspecified atrial fibrillation Telly Garcia, DO FACC 07/06/2019 I11.0 Hypertensive heart disease with Angelic Cornejo, PA heart failure 07/06/2019 L03.115 Cellulitis of right lower limb Paula Perera NP 07/06/2019 I50.23 Acute on chronic systolic Angelic Cornejo, PA (congestive) heart failure 07/06/2019 E11.69 Type 2 diabetes mellitus with other Paula Perera NP specified complication 07/06/2019 I73.9 Peripheral vascular disease, Angelic Cornejo, PA unspecified 07/06/2019 M86.671 Other chronic osteomyelitis, right Paula Perera NP ankle and foot 07/06/2019 D69.6 Thrombocytopenia, unspecified Angelic Cornejo, PA 07/06/2019 E11.40 Type 2 diabetes mellitus with Paula Perera NP diabetic neuropathy, unspecified 07/06/2019 E11.9 Type 2 diabetes mellitus without Angelic Cornejo, PA complications 07/05/2019 I42.9 Cardiomyopathy, unspecified Telly Garcia, DO FACC 07/05/2019 I50.9 Heart failure, unspecified Telly Garcia, DO FACC 07/05/2019 I48.91 Unspecified atrial fibrillation Telly Garcia, DO FACC 07/05/2019 I11.0 Hypertensive heart disease with Angelic Cornejo, PA heart failure 07/05/2019 I50.23 Acute on chronic systolic Angelic Cornejo, PA (congestive) heart failure 07/05/2019 D69.6 Thrombocytopenia, unspecified SHERWIN Calzada 07/05/2019 I73.9 Peripheral vascular disease, SHERWIN Calzada unspecified 07/05/2019 E11.9 Type 2 diabetes mellitus without SHERWIN Calzada complications 07/04/2019 I48.21 Permanent atrial fibrillation Kathi King M.D. 07/04/2019 I27.20 Pulmonary hypertension, unspecified Kathi King M.D. 07/04/2019 I50.811 Acute right heart failure Virginie Robertson NP 07/04/2019 L03.115 Cellulitis of right lower limb Paula Perera NP 07/04/2019 I48.91 Unspecified atrial fibrillation Virginie Robertson [...] Presence of cardiac pacemaker Eric Neville M.D., [facility] 07/03/2019 I50.23 Acute on chronic systolic SHERWIN [...] M.D. 07/03/2019 I95.9 Hypotension, unspecified Angelic Cornejo, SHERWIN 07/03/2019 Z95.0 Presence of cardiac pacemaker Angelic Cornejo, SHERWIN 07/03/2019 E11.40 Type 2 diabetes mellitus with Jorge Fam M.D. diabetic neuropathy, unspecified 07/03/2019 D69.6 Thrombocytopenia, unspecified Angelic Cornejo, PA 07/02/2019 I49.5 Sick sinus syndrome Prakash Manrique M.D. 07/02/2019 I50.811 Acute right heart failure Lissy Stocking, [facility] 07/02/2019 R94.31 Abnormal electrocardiogram [ECG] Eric Neville M.D., [facility], [EKG] FASDE 07/02/2019 I73.9 Peripheral vascular disease, Lissy Stocking, [employer] unspecified 07/02/2019 L03.115 Cellulitis of right lower limb Paula Perera NP 07/02/2019 D69.6 Thrombocytopenia, unspecified Lissy Stocking, [employer] 07/02/2019 E11.51 Type 2 diabetes mellitus with Paula Perera NP diabetic peripheral angiopathy without gangrene 07/02/2019 E87.70 Fluid overload, unspecified Lissy Stocking, [employer] 07/02/2019 E11.40 Type 2 diabetes mellitus with Paula Perera NP diabetic neuropathy, unspecified 07/01/2019 I48.91 Unspecified atrial fibrillation Sonu Sanchez M.D. 07/01/2019 I50.811 Acute right heart failure Lissy Stocking, [employer] 07/01/2019 I49.5 Sick sinus syndrome Sonu Sanchez M.D. 07/01/2019 I48.91 Unspecified atrial fibrillation Lissy Stocking, [employer] 07/01/2019 I50.9 Heart failure, unspecified Sonu Sanchez M.D. 07/01/2019 D69.6 Thrombocytopenia, unspecified Lissy Stocking, [employer] 07/01/2019 I10 Essential (primary) hypertension Sonu Sanchez M.D. 07/01/2019 I73.9 Peripheral vascular disease, Lissy Stocking, [employer] unspecified 07/01/2019 E87.70 Fluid overload, unspecified Lissy Stocking, [employer] 06/30/2019 I50.9 Heart failure, unspecified Sonu Sanchez M.D. 06/30/2019 I50.811 Acute right heart failure Lissy Stocking, [employer] 06/30/2019 I49.5 Sick sinus syndrome Sonu Sanchez M.D. 06/30/2019 I48.91 Unspecified atrial fibrillation Lissy Stocking, [employer] 06/30/2019 I36.1 Nonrheumatic tricuspid (valve) Sonu Sanchez M.D. insufficiency 06/30/2019 D69.6 Thrombocytopenia, unspecified Lissy Stocking, [employer] 06/30/2019 I48.91 Unspecified atrial fibrillation Sonu Sanchez M.D. 06/30/2019 I73.9 Peripheral vascular disease, Lissy Stocking, [employer] unspecified 06/30/2019 I42.9 Cardiomyopathy, unspecified Sonu Sanchez M.D. 06/30/2019 E87.70 Fluid overload, unspecified Lissy Stocking, [employer] 06/29/2019 I11.0 Hypertensive heart disease with Virginie Robertson NP heart failure 06/29/2019 I50.811 Acute right heart failure Virginie Robertson, ISSA 06/29/2019 R94.31 Abnormal electrocardiogram [ECG] Sonu Sanchez M.D. [EKG] 06/29/2019 I49.5 Sick sinus syndrome Virginie Robertson, PATHOLOGY LAB TECHNICIAN 06/29/2019 L03.115 Cellulitis of right lower limb Paula Perera, ISSA 06/29/2019 L03.115 Cellulitis of right lower limb Virginie Robertson, ISSA 06/29/2019 L97.929 Non-pressure chronic ulcer of Paula Perera, ISSA unspecified part of left lower leg with unspecified severity 06/29/2019 D69.6 Thrombocytopenia, unspecified Virginie Zain Doto, PATHOLOGY LAB TECHNICIAN 06/29/2019 E11.51 Type 2 diabetes mellitus with Paula Perera NP diabetic peripheral angiopathy without gangrene 06/29/2019 I73.9 Peripheral vascular disease, Virginie Robertson, PATHOLOGY LAB TECHNICIAN unspecified 06/29/2019 E11.621 Type 2 diabetes mellitus [...] without coma 06/27/2019 I50.9 Heart failure, unspecified ELAINE RaineyP 06/27/2019 I11.0 Hypertensive heart disease with SADE Rainey heart failure 06/27/2019 D69.6 Thrombocytopenia, unspecified Cathleen Cross, [employer] 06/27/2019 E11.9 Type 2 diabetes mellitus without SADE Rainey complications 06/19/2019 E11.649 Type 2 diabetes mellitus with Edwina Adams PA-C hypoglycemia without coma 06/19/2019 R68.0 Hypothermia, not associated with low Edwina Adams PA-C environmental temperature 06/18/2019 E11.649 Type 2 diabetes mellitus with Jigna King NP hypoglycemia without coma Plan of Treatment Future Appointment(s):09/27/2019 12:00 pm - Prakash Manrique M.D. at [facility]08/09/2019 12:00 pm - Prakash Manrique M.D. at [facility]09/2019 - Prakash Manrique M.D.I48.20 Chronic atrial fibrillationNew Orders: Interrogation Pacemaker, Scheduled: 08/09/19Follow up:2 ztloyoR53.0 Dilated ohtaizvifbmgzlI66.9 Congestive heart qiwavpoM55.0 Cardiac pacemaker in situ Functional Status Description No Information Available Mental Status Description No Information Available Referrals Description No Information Available
--- OUTSIDE RECORDS SUMMARY | 2019-08-26 04:57 | XMS REPORT | Continuity of Care Document ---
:1940 External Reference #:[id number] Author Name Eric Neville M.D., [facility], [facility] (transmitted by agent of provider Kera Lee) Address [facility] [place] [address] Care Team Providers Name Role Phone Damaso Sylvester MD - Internal Care Team Information [employer] Helper Medicine Jorge Fam MD - Infectious Care Team Information [employer] Installer Helper Disease Dylan Michel MD - Care Team Information [employer] Installer Helper [phone] Cardiovascular Disease Problems Active Problems Provider Date [...] CPT Code Status Date Vaccine Lot # [id number] Given 03/28/2015 Influenza Virus 3Yrs & Over [...] Information Available Procedures Date Code Description Status 07/04/2019 36053 EKG, Interpretation Only Completed 07/03/2019 28412 EKG, Interpretation Only Completed 07/02/2019 70472 EKG, Interpretation Only Completed 07/02/2019 44665 Perm Pacemaker Ventricular Completed 06/29/2019 07880 EKG, Interpretation Only Completed 06/28/2019 77512 EKG, Interpretation Only Completed Medical Devices Description No Information Available Encounters Type Date Location Provider Dx Diagnosis Office Visit 07/26/2019 Ryan Alvarado I48.20 Chronic atrial 12:15p Cardiology Avila Manrique fibrillation, unspecified I42.0 Dilated cardiomyopathy I50.9 Heart failure, unspecified Z95.0 Presence of cardiac pacemaker Office Visit 07/12/2019 [facility] I50.23 Acute on chronic 2:28p gayatri Marshall MD systolic Hospitalists (congestive) heart failure L03.115 Cellulitis of right lower limb I48.91 Unspecified atrial fibrillation Office Visit 07/11/2019 [facility] L03.115 Cellulitis of 8:30a For Infectious Trever, PHYSICAL THERAPY ASSISTANT right lower limb Diseases E11.69 Type 2 diabetes mellitus with other specified complication M86.671 Other chronic osteomyelitis, right ankle and foot E11.40 Type 2 diabetes mellitus with diabetic neuropathy, unsp Office Visit 07/11/2019 [facility] I50.23 Acute on chronic 2:28p gayatri Marshall MD systolic Hospitalists (congestive) heart failure Z95.0 Presence of cardiac pacemaker Office Visit 07/10/2019 [facility] I50.23 Acute on chronic 2:27p gayatri Marshall MD systolic Hospitalists (congestive) heart failure I73.9 Peripheral vascular disease, unspecified G47.33 Obstructive sleep apnea (adult) (pediatric) 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) Office Visit 07/09/2019 [facility] L03.115 Cellulitis of 8:29a For Infectious Trever, PHYSICAL THERAPY ASSISTANT right lower limb Diseases E11.69 Type 2 diabetes mellitus with other specified complication M86.671 Other chronic osteomyelitis, right ankle and foot E11.40 Type 2 diabetes mellitus with diabetic neuropathy, unsp Office Visit 07/09/2019 [facility] I50.23 Acute on chronic 2:27p gayatri Marshall MD systolic Hospitalists (congestive) heart failure I73.9 Peripheral vascular disease, unspecified R33.9 Retention of urine, unspecified Z95.0 Presence of cardiac pacemaker Office Visit 07/08/2019 [facility] I50.23 Acute on chronic 2:27p Assoc,SHERWIN Altman systolic Hospitalists (congestive) heart failure R41.82 Altered mental status, unspecified R33.9 Retention of urine, unspecified I73.9 Peripheral vascular disease, unspecified E11.9 Type 2 diabetes mellitus without complications E78.5 Hyperlipidemia, unspecified Office Visit 07/07/2019 [facility] I11.0 Hypertensive 2:26p Assoc,SHERWIN Altman heart disease Hospitalists with heart failure I50.23 Acute on chronic systolic (congestive) heart failure I48.91 Unspecified atrial fibrillation I73.9 Peripheral vascular disease, unspecified E11.9 Type 2 diabetes mellitus without complications E78.5 Hyperlipidemia, unspecified Office Visit 07/06/2019 [place] Telly Garcia, I48.91 Unspecified 4:22p Cardiology [facility] atrial [employer] Report Developer fibrillation Office Visit 07/06/2019 [facility] Paula Yoon L03.115 Cellulitis of 10:44a For Infectious Perera, PHYSICAL THERAPY ASSISTANT right lower limb Diseases E11.69 Type 2 diabetes mellitus with other specified complication M86.671 Other chronic osteomyelitis, right ankle and foot E11.40 Type 2 diabetes mellitus with diabetic neuropathy, unsp Office Visit 07/06/2019 [facility] I11.0 Hypertensive 2:26p Assoc,SHERWIN Altman heart disease Hospitalists with heart failure I50.23 Acute on chronic systolic (congestive) heart failure I73.9 Peripheral vascular disease, unspecified D69.6 Thrombocytopenia, unspecified E11.9 Type 2 diabetes mellitus without complications Office Visit 07/05/2019 [facility] I11.0 Hypertensive 2:26p Assoc,SHERWIN Altman heart disease Hospitalists with heart failure I50.23 Acute on chronic systolic (congestive) heart failure D69.6 Thrombocytopenia, unspecified I73.9 Peripheral vascular disease, unspecified E11.9 Type 2 diabetes mellitus without complications Office Visit 07/05/2019 [place] Telly Gonzalez I42.9 Cardiomyopathy, 4:21p Cardiology Of DO Jose unspecified [employer]ogn[employer] Report Developer FACC I50.9 Heart failure, unspecified I48.91 Unspecified atrial fibrillation Office Visit 07/04/2019 2:25p Intensivists Virginie Pittman I50.811 Acute right Doto, PHYSICAL THERAPY ASSISTANT heart failure I48.91 Unspecified atrial fibrillation D69.6 Thrombocytopenia, unspecified I73.9 Peripheral vascular disease, unspecified Office Visit 07/04/2019 [facility] Paula Yoon L03.115 Cellulitis of 10:43a For Infectious ISSA Perera right lower limb Diseases M86.671 Other chronic osteomyelitis, right ankle and foot E11.69 Type 2 diabetes mellitus with other specified complication E11.40 Type 2 diabetes mellitus with diabetic neuropathy, unsp Office Visit 07/04/2019 1:27p Raiza King, I48.21 Permanent atrial Cardiology Of M.D. fibrillation [employer] Report Developer I27.20 Pulmonary hypertension, unspecified Office Visit 07/03/2019 [facility] I11.0 Hypertensive 2:25p Assoc,SHERWIN Altman heart disease Hospitalists with heart failure I50.23 Acute on chronic systolic (congestive) heart failure L03.115 Cellulitis of right lower limb I95.9 Hypotension, unspecified Z95.0 Presence of cardiac pacemaker D69.6 Thrombocytopenia, unspecified Office Visit 07/03/2019 8:15a Wound Care Paula Yoon E11.622 Type 2 diabetes [facility] ISSA Perera mellitus with other skin ulcer L97.929 Non-prs chronic ulc unsp prt of l low leg w unsp severity E66.01 Morbid (severe) obesity due to excess calories Office Visit 07/03/2019 10:37a [facility] Jorge Alvarado L03.115 Cellulitis of For Kenton Fam M.D. right lower limb Diseases E11.40 Type 2 diabetes mellitus with diabetic neuropathy, unsp Office Visit 07/02/2019 2:24p Intensivists Lissy Espinoza I50.811 Acute right [employer]ANT heart failure I73.9 Peripheral vascular disease, unspecified D69.6 Thrombocytopenia, unspecified E87.70 Fluid overload, unspecified Office Visit 07/02/2019 [facility] Paula Yoon L03.115 Cellulitis of 10:36a For Infectious Trever PHYSICAL THERAPY ASSISTANT right lower limb Diseases E11.51 Type 2 diabetes w diabetic peripheral angiopath w/o gangrene E11.40 Type 2 diabetes mellitus with diabetic neuropathy, unsp Office Visit 07/01/2019 2:23p Intensivists Lissy Espinoza, I50.811 Acute right [employer]ANT heart failure I48.91 Unspecified atrial fibrillation D69.6 Thrombocytopenia, unspecified I73.9 Peripheral vascular disease, unspecified E87.70 Fluid overload, unspecified Office Visit 07/01/2019 3:03p [facility] Sonu Gaytan I48.91 Unspecified atrial Cardiology Avila Sanchez fibrillation I49.5 Sick sinus syndrome I50.9 Heart failure, unspecified I10 Essential (primary) hypertension Office Visit 06/30/2019 3:01p [facility] Sonu Gaytan I50.9 Heart failure, Avila Sanchez unspecified I49.5 Sick sinus syndrome I36.1 Nonrheumatic tricuspid (valve) insufficiency I48.91 Unspecified atrial fibrillation I42.9 Cardiomyopathy, unspecified Office Visit 06/30/2019 2:22p Intensivists Lissy Espinoza, I50.811 Acute right [employer]ANT heart failure I48.91 Unspecified atrial fibrillation D69.6 Thrombocytopenia, unspecified I73.9 Peripheral vascular disease, unspecified E87.70 Fluid overload, unspecified Office Visit 06/29/2019 2:20p Intensivists Virginie Pittman I11.0 Hypertensive heart Doto, PHYSICAL THERAPY ASSISTANT disease with heart failure I50.811 Acute right heart failure I49.5 Sick sinus syndrome L03.115 Cellulitis of right lower limb D69.6 Thrombocytopenia, unspecified I73.9 Peripheral vascular disease, unspecified Office Visit 06/29/2019 [facility] Paula Yoon L03.115 Cellulitis of 10:34a For Infectious ISSA Perera right lower limb Diseases E11.51 Type 2 diabetes w diabetic peripheral angiopath w/o gangrene E11.40 Type 2 diabetes mellitus with diabetic neuropathy, unsp Office Visit 06/29/2019 8:35p Wound Care Paula Yoon L97.929 Non- prs chronic [facility] ISSA Perera [facility] unsp prt of l low leg w unsp severity E11.621 Type 2 diabetes mellitus with foot ulcer E66.01 Morbid (severe) obesity due to excess calories Office Visit 06/28/2019 [facility] L03.115 Cellulitis of 2:20p Assoc,pc SHERWIN Cornejo right lower Hospitalists limb I11.0 Hypertensive heart disease with heart failure I50.23 Acute on chronic systolic (congestive) heart failure I48.91 Unspecified atrial fibrillation D69.6 Thrombocytopenia, unspecified E11.649 Type 2 diabetes mellitus with hypoglycemia without coma Office Visit 06/28/2019 1:58p [facility] Armida Figueroajoy, L03.115 Cellulitis of Orthopedics at [facility] right lower limb Tsaile 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) Office Visit 06/27/2019 2:19p [facility] I50.9 Heart failure, Assoc,gayatri Cross, [employer] CONSULTANT unspecified Hospitalists I11.0 Hypertensive heart disease with heart failure D69.6 Thrombocytopenia, unspecified E11.9 Type 2 diabetes mellitus without complications Office Visit 06/19/2019 [facility] Edwina E11.649 Type 2 diabetes 11:11a Assoc,SHERWIN Olsen-C mellitus with Hospitalists hypoglycemia without coma R68.0 Hypothermia, not associated w low environmental temperature Office Visit 06/18/2019 [facility] E11.649 Type 2 diabetes 11:11a Assoc,gayatri [...] 07/08/2019 E11.9 Type 2 diabetes mellitus without Angelic Cornejo, PA complications 07/08/2019 E78.5 Hyperlipidemia, unspecified Angelic Cornejo, [...] failure 07/05/2019 I50.23 Acute on chronic systolic SHERWIN Calzada (congestive) heart failure 07/05/2019 D69.6 Thrombocytopenia, unspecified SHERWIN Calzada 07/05/2019 I73.9 Peripheral vascular disease, SHERWIN Calzada unspecified 07/05/2019 E11.9 Type 2 diabetes mellitus without SHERWIN Calzada complications 07/04/2019 R94.31 Abnormal electrocardiogram [ECG] Eric Neville M.D., [facility], [EKG] FASHI 07/04/2019 I48.21 Permanent atrial fibrillation Kathi King [...] Presence of cardiac pacemaker Eric Neville M.D., [facility], [facility] 07/03/2019 I50.23 Acute on chronic systolic SHERWIN Calzada (congestive) heart failure 07/03/2019 L97.929 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 with unspecified severity 07/03/2019 L03.115 Cellulitis of right lower limb SHERWIN Calzada 07/03/2019 E66.01 Morbid (severe) obesity due to Paula Perera NP excess calories 07/03/2019 L03.115 Cellulitis of right lower limb Jorge aFm M.D. 07/03/2019 I95.9 Hypotension, unspecified SHERWIN Calzada 07/03/2019 Z95.0 Presence of cardiac pacemaker SHERWIN Calzada 07/03/2019 E11.40 Type 2 diabetes mellitus with Jorge Fam M.D. diabetic neuropathy, unspecified 07/03/2019 D69.6 Thrombocytopenia, unspecified SHERWIN Calzada 07/02/2019 I49.5 Sick sinus syndrome Prakash Manrique M.D. 07/02/2019 I50.811 Acute right heart failure Lissy Stocking, [employer]ANT 07/02/2019 R94.31 Abnormal electrocardiogram [ECG] Eric Neville M.D., [facility], [EKG] [facility] 07/02/2019 I73.9 Peripheral vascular disease, Lissy Stocking, [employer]ANT unspecified 07/02/2019 L03.115 Cellulitis of right lower limb Paula Perera NP 07/02/2019 D69.6 Thrombocytopenia, unspecified Lissy Stocking, [employer]ANT 07/02/2019 E11.51 Type 2 diabetes mellitus with Paula Perera NP diabetic peripheral angiopathy without gangrene 07/02/2019 E87.70 Fluid overload, unspecified Lissy Stocking, [employer]ANT 07/02/2019 E11.40 Type 2 diabetes mellitus with Paula Perera NP diabetic neuropathy, unspecified 07/01/2019 I48.91 Unspecified atrial fibrillation Sonu Sanchez M.D. 07/01/2019 I50.811 Acute right heart failure Lissy Stocking, [employer]ANT 07/01/2019 I49.5 Sick sinus syndrome Sonu Sanchez M.D. 07/01/2019 I48.91 Unspecified atrial fibrillation Lissy Stocking, [employer]ANT 07/01/2019 I50.9 Heart failure, unspecified Sonu Sanchez M.D. 07/01/2019 D69.6 Thrombocytopenia, unspecified Lissy Stocking, [employer] 07/01/2019 I10 Essential (primary) hypertension Sonu Sanchez M.D. 07/01/2019 I73.9 Peripheral vascular disease, Lissy Stocking, [employer]ANT unspecified 07/01/2019 E87.70 Fluid overload, unspecified Lissy Stocking, [employer]ANT 06/30/2019 I50.9 Heart failure, unspecified Sonu Sanchez M.D. 06/30/2019 I50.811 Acute right heart failure Lissy Stocking, [employer] 06/30/2019 I49.5 Sick sinus syndrome Sonu Sanchez M.D. 06/30/2019 I48.91 Unspecified atrial fibrillation Lissy Stocking, [employer] 06/30/2019 I36.1 Nonrheumatic tricuspid (valve) Sonu Sanchez M.D. insufficiency 06/30/2019 D69.6 Thrombocytopenia, unspecified Lissy Stocking, [employer]ANT 06/30/2019 I48.91 Unspecified atrial fibrillation Sonu Sanchez M.D. 06/30/2019 I73.9 Peripheral vascular disease, Lissy Stocking, [employer]ANT unspecified 06/30/2019 I42.9 Cardiomyopathy, masonified Sonu Sanchez M.D. 06/30/2019 E87.70 Fluid overload, unspecified Lissy Stocking, [employer] 06/29/2019 I11.0 Hypertensive heart disease with Virginie Zain Robertson, PHYSICAL THERAPY ASSISTANT heart failure 06/29/2019 I50.811 Acute right heart failure Virginie Zain Robertson, PHYSICAL THERAPY ASSISTANT 06/29/2019 R94.31 Abnormal electrocardiogram [ECG] Sonu Sanchez M.D. [EKG] 06/29/2019 I49.5 Sick sinus syndrome Virginie Robertson, PHYSICAL THERAPY ASSISTANT 06/29/2019 L03.115 Cellulitis of right lower limb Paula Perera NP 06/29/2019 L03.115 Cellulitis of right lower limb Virginie Robertson, ISSA 06/29/2019 L97.929 Non-pressure chronic ulcer of Paula Yoon ISSA Perera unspecified part of left lower leg with unspecified severity 06/29/2019 D69.6 Thrombocytopenia, unspecified Virginie Robertson, PHYSICAL THERAPY ASSISTANT 06/29/2019 E11.51 Type 2 diabetes mellitus with Paula Car Perera NP diabetic peripheral angiopathy without gangrene 06/29/2019 I73.9 Peripheral vascular disease, Virginie RobertsonISSA unspecified 06/29/2019 E11.621 Type 2 diabetes mellitus with foot Paula Car Perera NP ulcer 06/29/2019 E11.40 Type 2 diabetes mellitus with Paula Car Perera NP diabetic neuropathy, unspecified 06/29/2019 E66.01 Morbid (severe) obesity due to Paula Car Perera NP excess calories 06/28/2019 L03.115 Cellulitis [...] Rainey heart failure 06/27/2019 D69.6 Thrombocytopenia, unspecified SADE Rainey 06/27/2019 E11.9 Type 2 diabetes mellitus without SADE Rainey complications 06/19/2019 E11.649 Type 2 diabetes mellitus with Edwina Adams PA-C hypoglycemia without coma 06/19/2019 R68.0 Hypothermia, not associated with low Edwina Adams PA-C environmental temperature 06/18/2019 E11.649 Type 2 diabetes mellitus with Jigna King NP hypoglycemia without coma Plan of Treatment Future Appointment(s):11/21/2019 3:00 pm - Darren Goldberg MD at [facility] and Endocrinology [facility]09/27/2019 12:00 pm - Parkash Manrique M.D. at [facility]08/09/2019 12:00 pm - Prakash Manrique M.D. at [facility]07/26/2019 - Prakash Manrique M.D.I48.20 Chronic atrial fibrillationNew Orders:Interrogation Pacemaker, Scheduled: 08/09/19Follow up:2 oygfegS28.0 Dilated ohrpdhnkgjnrpuL74.9 Congestive heart rbgtubaF03.0 Cardiac pacemaker in situ Functional Status Description No Information Available Mental Status Description No Information Available Referrals Description No Information Available
--- OUTSIDE RECORDS SUMMARY | 2019-08-26 04:57 | XMS REPORT | Continuity of Care Document ---
:1940 External Reference #:[id number] Author Name Prakash Manrique M.D. (transmitted by agent of provider Kera Lee) Address [address] [place] [address] Care Team Providers Name Role Phone Damaso Sylvester MD - Internal Care Team Information [place] [phone] Medicine Jorge Fam MD - Infectious Care Team Information [place] Disease Dylan Michel MD - Care Team Information [place] [phone] Cardiovascular Disease Problems Active Problems Provider Date [...] CPT Code Status Date Vaccine Lot # [id number] Given 03/28/2015 Influenza Virus 3Yrs & Over [...] Information Available Procedures Date Code Description Status 08/09/2019 32296 Pace Maker Eval W/Iterative Adjustment Single Lead Completed 07/04/2019 64769 EKG, Interpretation Only Completed 07/03/2019 44338 EKG, Interpretation Only Completed 07/02/2019 94184 EKG, Interpretation Only Completed 07/02/2019 79576 Perm Pacemaker Ventricular Completed 06/29/2019 34791 EKG, Interpretation Only Completed 06/28/2019 38566 EKG, Interpretation Only Completed Medical Devices Description No Information Available Encounters Type Date Location Provider Dx Diagnosis Office Visit 07/26/2019 Ryan Prakash D. I48.20 Chronic atrial 12:15p Cardiology Avila Manrique fibrillation, unspecified I42.0 Dilated cardiomyopathy I50.9 Heart failure, unspecified Z95.0 Presence of cardiac pacemaker Office Visit 07/12/2019 [facility] I50.23 Acute on chronic 2:28p gayatri Marshall MD systolic Hospitalists (congestive) heart failure L03.115 Cellulitis of right lower limb I48.91 Unspecified atrial fibrillation Office Visit 07/11/2019 [facility] L03.115 Cellulitis of 8:30a For Infectious Trever, DIRECTOR PRODUCT MANAGEMENT right lower limb Diseases E11.69 Type 2 diabetes mellitus with other specified complication M86.671 Other chronic osteomyelitis, right ankle and foot E11.40 Type 2 diabetes mellitus with diabetic neuropathy, unsp Office Visit 07/11/2019 [facility] I50.23 Acute on chronic 2:28p gayatri Marshall MD systolic Hospitalists (congestive) heart failure Z95.0 Presence of cardiac pacemaker Office Visit 07/10/2019 [facility] I50.23 Acute on chronic 2:27p gayatri Marshall MD systolic Hospitalists (congestive) heart failure I73.9 Peripheral vascular disease, unspecified G47.33 Obstructive sleep apnea (adult) (pediatric) 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 L03.115 Cellulitis of 8:29a For Infectious Trever DIRECTOR PRODUCT MANAGEMENT right lower limb Diseases E11.69 Type 2 diabetes mellitus with other specified complication M86.671 Other chronic osteomyelitis, right ankle and foot E11.40 Type 2 diabetes mellitus with diabetic neuropathy, unsp Office Visit 07/09/2019 [facility] I50.23 Acute on chronic 2:27p gayatri Marshall MD systolic Hospitalists (congestive) heart failure I73.9 Peripheral vascular disease, unspecified R33.9 Retention of urine, unspecified Z95.0 Presence of cardiac pacemaker Office Visit 07/08/2019 [facility] I50.23 Acute on chronic 2:27p Assoc,SHERWIN Altman systolic Hospitalists (congestive) heart failure R41.82 Altered mental status, unspecified R33.9 Retention of urine, unspecified I73.9 Peripheral vascular disease, unspecified E11.9 Type 2 diabetes mellitus without complications E78.5 Hyperlipidemia, unspecified Office Visit 07/07/2019 [facility] I11.0 Hypertensive 2:26p Assoc,SHREWIN Altman heart disease Hospitalists with heart failure I50.23 Acute on chronic systolic (congestive) heart failure I48.91 Unspecified atrial fibrillation I73.9 Peripheral vascular disease, unspecified E11.9 Type 2 diabetes mellitus without complications E78.5 Hyperlipidemia, unspecified Office Visit 07/06/2019 [place] Telly Garcia, I48.91 Unspecified 4:22p Cardiology [facility] atrial It Director fibrillation Office Visit 07/06/2019 [facility] Paula Car L03.115 Cellulitis of 10:44a For Infectious Perera, DIRECTOR PRODUCT MANAGEMENT right lower limb Diseases E11.69 Type 2 diabetes mellitus with other specified complication M86.671 Other chronic osteomyelitis, right ankle and foot E11.40 Type 2 diabetes mellitus with diabetic neuropathy, unsp Office Visit 07/06/2019 [facility] I11.0 Hypertensive 2:26p Assgayatri patrick PA heart disease Hospitalists with heart failure I50.23 Acute on chronic systolic (congestive) heart failure I73.9 Peripheral vascular disease, unspecified D69.6 Thrombocytopenia, unspecified E11.9 Type 2 diabetes mellitus without complications Office Visit 07/05/2019 [facility] I11.0 Hypertensive 2:26p Assoc,SHERWIN Altman heart disease Hospitalists with heart failure I50.23 Acute on chronic systolic (congestive) heart failure D69.6 Thrombocytopenia, unspecified I73.9 Peripheral vascular disease, unspecified E11.9 Type 2 diabetes mellitus without complications Office Visit 07/05/2019 [place] Telly Gonzalez I42.9 Cardiomyopathy, 4:21p Cardiology Of DO Jose unspecified It Director FACC I50.9 Heart failure, unspecified I48.91 Unspecified atrial fibrillation Office Visit 07/04/2019 2:25p Intensivists Virginie Pittman I50.811 Acute right Doto, DIRECTOR PRODUCT MANAGEMENT heart failure I48.91 Unspecified atrial fibrillation D69.6 Thrombocytopenia, unspecified I73.9 Peripheral vascular disease, unspecified Office Visit 07/04/2019 [facility] Paula Yoon L03.115 Cellulitis of 10:43a For Infectious ISSA Perera right lower limb Diseases M86.671 Other chronic osteomyelitis, right ankle and foot E11.69 Type 2 diabetes mellitus with other specified complication E11.40 Type 2 diabetes mellitus with diabetic neuropathy, unsp Office Visit 07/04/2019 1:27p Raiza King, I48.21 Permanent atrial Cardiology Of M.DShirley fibrillation It Director I27.20 Pulmonary hypertension, unspecified Office Visit 07/03/2019 [facility] I11.0 Hypertensive 2:25p Assoc,SHERWIN Altman heart disease Hospitalists with heart failure I50.23 Acute on chronic systolic (congestive) heart failure L03.115 Cellulitis of right lower limb I95.9 Hypotension, unspecified Z95.0 Presence of cardiac pacemaker D69.6 Thrombocytopenia, unspecified Office Visit 07/03/2019 8:15a Wound Care Paula Yoon E11.622 Type 2 diabetes [facility] ISSA Perera mellitus with other skin ulcer L97.929 Non-prs chronic ulc unsp prt of l low leg w unsp severity E66.01 Morbid (severe) obesity due to excess calories Office Visit 07/03/2019 10:37a [facility] Jorge Alvarado L03.115 Cellulitis of For Kenton Fam M.D. right lower limb Diseases E11.40 Type 2 diabetes mellitus with diabetic neuropathy, unsp Office Visit 07/02/2019 2:24p Intensivists Lissy Espinoza I50.811 Acute right POWDER OPERATOR heart failure I73.9 Peripheral vascular disease, unspecified D69.6 Thrombocytopenia, unspecified E87.70 Fluid overload, unspecified Office Visit 07/02/2019 [facility] Paula Yoon L03.115 Cellulitis of 10:36a For Infectious ISSA Perera right lower limb Diseases E11.51 Type 2 diabetes w diabetic peripheral angiopath w/o gangrene E11.40 Type 2 diabetes mellitus with diabetic neuropathy, unsp Office Visit 07/01/2019 2:23p Intensivists Lissy Espinoza, I50.811 Acute right POWDER OPERATOR heart failure I48.91 Unspecified atrial fibrillation D69.6 Thrombocytopenia, unspecified I73.9 Peripheral vascular disease, unspecified E87.70 Fluid overload, unspecified Office Visit 07/01/2019 3:03p [facility] Sonu Gaytan I48.91 Unspecified atrial Cardiology Avila Sanchez fibrillation I49.5 Sick sinus syndrome I50.9 Heart failure, unspecified I10 Essential (primary) hypertension Office Visit 06/30/2019 3:01p [facility] Sonu Gaytan I50.9 Heart failure, Avila Sanchez unspecified I49.5 Sick sinus syndrome I36.1 Nonrheumatic tricuspid (valve) insufficiency I48.91 Unspecified atrial fibrillation I42.9 Cardiomyopathy, unspecified Office Visit 06/30/2019 2:22p Intensivists Lissy Espinoza, I50.811 Acute right POWDER OPERATOR heart failure I48.91 Unspecified atrial fibrillation D69.6 Thrombocytopenia, unspecified I73.9 Peripheral vascular disease, unspecified E87.70 Fluid overload, unspecified Office Visit 06/29/2019 2:20p Intensivists Virginie Pittman I11.0 Hypertensive heart Doto, DIRECTOR PRODUCT MANAGEMENT disease with heart failure I50.811 Acute right heart failure I49.5 Sick sinus syndrome L03.115 Cellulitis of right lower limb D69.6 Thrombocytopenia, unspecified I73.9 Peripheral vascular disease, unspecified Office Visit 06/29/2019 [facility] Paula Yoon L03.115 Cellulitis of 10:34a For Infectious ISSA Perera right lower limb Diseases E11.51 Type 2 diabetes w diabetic peripheral angiopath w/o gangrene E11.40 Type 2 diabetes mellitus with diabetic neuropathy, unsp Office Visit 06/29/2019 8:35p Wound Care Paula Yoon L97.929 Non- prs chronic [facility] ISSA Perera [facility] unsp prt of l low leg w unsp severity E11.621 Type 2 diabetes mellitus with foot ulcer E66.01 Morbid (severe) obesity due to excess calories Office Visit 06/28/2019 [facility] Angelic L03.115 Cellulitis of 2:20p Assoc,pc SHERWIN Cornejo right lower Hospitalists limb I11.0 Hypertensive heart disease with heart failure I50.23 Acute on chronic systolic (congestive) heart failure I48.91 Unspecified atrial fibrillation D69.6 Thrombocytopenia, unspecified E11.649 Type 2 diabetes mellitus with hypoglycemia without coma Office Visit 06/28/2019 1:58p [place] Armida Figueroajoy, L03.115 Cellulitis of [facility] right lower limb [place] 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) Office [facility] Heart failure, Assoc,gayatri Cross, POWDER OPERATOR unspecified Hospitalists I11.0 Hypertensive heart disease with heart failure D69.6 Thrombocytopenia, unspecified E11.9 Type 2 diabetes mellitus without complications Office Visit 06/19/2019 [facility] Edwina E11.649 Type 2 diabetes 11:11a Assoc,gayatri Adams PA-C mellitus with Hospitalists hypoglycemia without coma R68.0 Hypothermia, not associated w low environmental temperature Office Visit 06/18/2019 [facility] Jigna E11.649 Type 2 diabetes 11:11a Assoc,gayatri King NP mellitus with Hospitalists hypoglycemia without coma Assessments Date Code Description Provider 08/09/2019 I48.20 Chronic atrial fibrillation Prakash Manrique M.D. 08/09/2019 Z95.0 Presence of cardiac pacemaker Prakash Manrique M.D. 08/09/2019 I42.0 Dilated cardiomyopathy Prakash Manrique M.D. 07/26/2019 I48.20 Chronic atrial fibrillation Prakash Manrique [...] unspecified 07/08/2019 I50.23 Acute on chronic systolic Angelic Cornejo, PA (congestive) heart failure 07/08/2019 R41.82 Altered mental status, unspecified Angelic Cornejo, PA 07/08/2019 R33.9 Retention of urine, unspecified Angelic Cornejo, PA 07/08/2019 I73.9 Peripheral vascular disease, Angelic Cornejo, PA unspecified 07/08/2019 E11.9 Type 2 diabetes mellitus [...] I48.91 Unspecified atrial fibrillation Telly Garcia, DO [facility] 07/06/2019 I11.0 Hypertensive heart disease with Angelic [...] 07/05/2019 I42.9 Cardiomyopathy, unspecified Telly Garcia, DO [facility] 07/05/2019 I50.9 Heart failure, unspecified Telly Garcia, DO [facility] 07/05/2019 I48.91 Unspecified atrial fibrillation Telly Garcia, DO [facility] 07/05/2019 I11.0 Hypertensive heart disease with SHERWIN Calzada heart failure 07/05/2019 I50.23 Acute on chronic systolic SHERWIN Calzada (congestive) heart failure 07/05/2019 D69.6 Thrombocytopenia, unspecified SHERWIN Calzada 07/05/2019 I73.9 Peripheral vascular disease, SHERWIN Calzada unspecified 07/05/2019 E11.9 Type 2 diabetes mellitus without SHERWIN Calzada complications 07/04/2019 R94.31 Abnormal electrocardiogram [ECG] Eric Neville M.D., [facility], [EKG] [facility] 07/04/2019 I48.21 Permanent atrial fibrillation Kathi King M.D. 07/04/2019 I27.20 Pulmonary hypertension, unspecified Kathi King M.D. 07/04/2019 I50.811 Acute right heart failure Virginie Robertson NP 07/04/2019 L03.115 Cellulitis of right lower limb Paula Perera, ISSA 07/04/2019 I48.91 Unspecified atrial fibrillation Virginie Robertson, ISSA 07/04/2019 M86.671 Other chronic osteomyelitis, right Paula [...] Presence of cardiac pacemaker Eric Neville M.D., [facility], [facility] 07/03/2019 I50.23 Acute on chronic systolic SHERWIN Calzada (congestive) heart failure 07/03/2019 L97.929 Non-pressure chronic ulcer of Paulacelso Perera NP unspecified part of left lower leg with unspecified severity 07/03/2019 L03.115 Cellulitis of right lower limb SHERWIN Calzada 07/03/2019 E66.01 Morbid (severe) obesity due to Paula Perera NP excess calories 07/03/2019 L03.115 Cellulitis of right lower limb Jorge Fam M.D. 07/03/2019 I95.9 Hypotension, unspecified Angelic Cornejo PA 07/03/2019 Z95.0 Presence of cardiac pacemaker SHERWIN Calzada 07/03/2019 E11.40 Type 2 diabetes mellitus with Jorge Fam M.D. diabetic neuropathy, unspecified 07/03/2019 D69.6 Thrombocytopenia, unspecified SHERWIN Calzada 07/02/2019 I49.5 Sick sinus syndrome Prakash Manrique M.D. 07/02/2019 I50.811 Acute right heart failure Lissy Stocking, POWDER OPERATOR 07/02/2019 R94.31 Abnormal electrocardiogram [ECG] Eric Neville M.D., [facility], [EKG] [facility] 07/02/2019 I73.9 Peripheral vascular disease, Lissy Stocking, POWDER OPERATOR unspecified 07/02/2019 L03.115 Cellulitis of right lower limb Paulacelso Perera NP 07/02/2019 D69.6 Thrombocytopenia, unspecified Lissy Stocking, POWDER OPERATOR 07/02/2019 E11.51 Type 2 diabetes mellitus with Paula Perera NP diabetic peripheral angiopathy without gangrene 07/02/2019 E87.70 Fluid overload, unspecified Lissy Stocking, POWDER OPERATOR 07/02/2019 E11.40 Type 2 diabetes mellitus with Paula Perera NP diabetic neuropathy, unspecified 07/01/2019 I48.91 Unspecified atrial fibrillation Sonu Sanchez M.D. 07/01/2019 I50.811 Acute right heart failure Lissy Stocking, POWDER OPERATOR 07/01/2019 I49.5 Sick sinus syndrome Sonu Sanchez M.D. 07/01/2019 I48.91 Unspecified atrial fibrillation Lissy Stocking, POWDER OPERATOR 07/01/2019 I50.9 Heart failure, unspecified Sonu Sanchez M.D. 07/01/2019 D69.6 Thrombocytopenia, unspecified Lissy Stocking, POWDER OPERATOR 07/01/2019 I10 Essential (primary) hypertension Sonu Sanchez M.D. 07/01/2019 I73.9 Peripheral vascular disease, Lissy Stocking, POWDER OPERATOR unspecified 07/01/2019 E87.70 Fluid overload, unspecified Lissy Stocking, POWDER OPERATOR 06/30/2019 I50.9 Heart failure, unspecified Sonu Sanchez M.D. 06/30/2019 I50.811 Acute right heart failure Lissy Stocking, POWDER OPERATOR 06/30/2019 I49.5 Sick sinus syndrome Sonu Sanchez M.D. 06/30/2019 I48.91 Unspecified atrial fibrillation Lissy Stocking, POWDER OPERATOR 06/30/2019 I36.1 Nonrheumatic tricuspid (valve) Sonu Sanchez M.D. insufficiency 06/30/2019 D69.6 Thrombocytopenia, unspecified Lissy Stocking, POWDER OPERATOR 06/30/2019 I48.91 Unspecified atrial fibrillation Sonu Sanchez M.D. 06/30/2019 I73.9 Peripheral vascular disease, Lissy Stocking, POWDER OPERATOR unspecified 06/30/2019 I42.9 Cardiomyopathy, unspecified Sonu Sanchez M.D. 06/30/2019 E87.70 Fluid overload, unspecified Lissy Stocking, POWDER OPERATOR 06/29/2019 I11.0 Hypertensive heart disease with Virginie Robertson NP heart failure 06/29/2019 I50.811 Acute right heart failure Virginie Robertson NP 06/29/2019 R94.31 Abnormal electrocardiogram [ECG] Sonu Sanchez M.D. [EKG] 06/29/2019 I49.5 Sick sinus syndrome Virginie Pittman Ailyn, ISSA 06/29/2019 L03.115 Cellulitis of right lower limb Paula Freirecandyarincarlospatsy Perera, ISSA 06/29/2019 L03.115 Cellulitis of right lower limb Virginie Hinesfield Ailyn NP 06/29/2019 L97.929 Non-pressure chronic ulcer of Paula Freirecandycarol ISSA Perera unspecified part of left lower leg with unspecified severity 06/29/2019 D69.6 Thrombocytopenia, unspecified Virginie Pittman ISSA Robertson 06/29/2019 E11.51 Type 2 diabetes mellitus with Paulacelso Perera NP diabetic peripheral angiopathy without gangrene 06/29/2019 I73.9 Peripheral vascular disease, Virginie Pittman ISSA Robertson unspecified 06/29/2019 E11.621 Type 2 diabetes mellitus with foot Paula Perera NP ulcer 06/29/2019 E11.40 Type 2 diabetes mellitus with Paulacelso Perera NP diabetic neuropathy, unspecified 06/29/2019 E66.01 [...] 06/28/2019 L03.115 Cellulitis of right lower limb JUAN Lee 06/28/2019 I48.91 Unspecified atrial fibrillation SHERWIN Calzada 06/28/2019 Z89.421 Acquired absence of other right JUAN Lee toe(s) 06/28/2019 D69.6 Thrombocytopenia, unspecified SHERWIN Calzada 06/28/2019 E11.649 Type 2 diabetes mellitus with Angelic Cornejo, PA hypoglycemia without coma 06/27/2019 I50.9 Heart failure, unspecified Cathleen Cross, POWDER OPERATOR 06/27/2019 I11.0 Hypertensive heart disease with Cathleen Cross, POWDER OPERATOR heart failure 06/27/2019 D69.6 Thrombocytopenia, unspecified Cathleen Cross, POWDER OPERATOR 06/27/2019 E11.9 Type 2 diabetes mellitus without Cathleenaida Cross, POWDER OPERATOR complications 06/19/2019 E11.649 Type 2 diabetes mellitus with Edwina O'ana lilia, PA-C hypoglycemia without coma 06/19/2019 R68.0 Hypothermia, not associated with low Edwina O'ana lilia, PA-C environmental temperature 06/18/2019 E11.649 Type 2 diabetes mellitus with Jigna King NP hypoglycemia without coma Plan of Treatment Future Appointment(s):11/21/2019 3:00 pm - Darren Goldberg MD at [facility]09/27/2019 12:00 pm - Prakash Manrique M.D. at [facility]07/26/2019 - Prakash Manrique M.D.I48.20 Chronic atrial fibrillationNew Orders:Interrogation Pacemaker, Scheduled: 08/09/19Follow up:2 eifwfdI63.0 Dilated qzhfnmuvsqlsvaS57.9 Congestive heart tertuydM84.0 Cardiac pacemaker in situ Functional Status Description No Information Available Mental Status Description No Information Available Referrals Description No Information Available
[2019-08-26 05:16] LABS: INR 2.43 (0.82-1.09)
[2019-08-26 05:20] LABS: Hematocrit 33 % (35-47); Hemoglobin 10.5 g/dL (12.0-16.0); Mean Corpuscular HGB Conc 32 g/dL (31-36); Mean Corpuscular Hemoglobin 27 pg (27-31); Mean Corpuscular Volume 86 fL (80-97); Red Blood Count 3.88 10^6 /uL (3.70-4.87); Red Cell Distribution Width 24 % (10-15); White Blood Count 4.5 10^3/uL (3.5-10.8)
[2019-08-26 05:27] LABS: Albumin 2.9 g/dL (3.2-5.2); Albumin/Globulin Ratio 0.7 (1-3); BUN/Creatinine Ratio 33.7 (8-20); Calcium 9.4 mg/dL (8.6-10.3); EGFR African American 71.4 (>60); Globulin 3.9 g/dL (2-4); Total Protein 6.8 g/dL (6.4-8.9)
[2019-08-26 05:44] LABS: ABS Eosinophils 0.2 10^3/ul (0-0.6); ABS Lymphocytes 0.6 10^3/ul (1.0-4.8); ABS Monocytes 0.4 10^3/ul (0-0.8); ABS Neutrophils 3.2 10^3/ul (1.5-7.7); Eosinophil % 3.8 %; Lymphocyte % 14.4 %; Mean Platelet Volume 9.3 fL (7.4-10.4); Platelet Count 71 10^3/uL (150-450)
[2019-08-26 05:46] LABS: Urine Appearance Cloudy; Urine Bilirubin Negative (Negative); Urine Blood 1+ (Negative); Urine Color Yellow; Urine Glucose Negative (Negative); Urine Ketones Negative (Negative); Urine Nitrite Negative (Negative); Urine Protein Negative (Negative); Urine Specific Gravity 1.008 (1.010-1.030); Urine Urobilinogen Negative (Negative)
[2019-08-26 05:52] LABS: Polychromasia 1+
[2019-08-26 05:54] LABS: Urine Bacteria Absent (Absent); Urine Red Blood Cell 3+(>10/hpf) (Absent); Urine Squamous Epithelial Cell Present (Absent); Urine White Blood Cell Trace(0-5/hpf) (Absent)
--- NOTE | 2019-08-26 07:53 | HP ---
HISTORY AND PHYSICAL: DATE OF ADMISSION: 08/26/19 PRIMARY CARE PROVIDER: Dr. Damaso Sylvester. PROPAGATION MANAGER: Bhupendra Kaufman, the patient's . CODE STATUS: Full. REASON FOR ADMISSION: Lethargy, weakness, CHF exacerbation, elevated ammonia. HPI is obtained from medical records as the patient is a poor historian. HISTORY OF PRESENT ILLNESS: The patient is a 79-year-old female with a past medical history of atrial fibrillation, on anticoagulation, recent sick sinus syndrome, status post pacemaker placement in June 2019, insulin dependent diabetes, restless legs, JOSHUA not on CPAP, heart failure with reduced ejection fraction with EF of 40% to 45% in June 2019, who was recently admitted from 06/27/19 to 07/12/19 at [facility] for cellulitis, CHF exacerbation, with course complicated by bradycardia and pacemaker placement, who is being transferred from [facility] this evening with complaint of worsening lethargy and elevated ammonia. The patient was discharged to snf facility from [facility] on last admission and has been back and forth between [facility] and her snf facility ever since. Most recently, she was into [facility] for UTI and sepsis and she transitioned back to her snf facility on the . Per the [facility] provider, the patient has been persistently lethargic since about the end of July. The provider checked labs and noted that the ammonia level was increased and thus they recommended that they send the patient to the emergency room. Of note, the patient's torsemide and spironolactone have been held since 08/18/19 when she initially presented to [facility] last time for sepsis and UTI as it was not restarted secondary to low blood pressure. The patient did initiate a subacute workup for her ongoing lethargy and elevated ammonia, which included a CT abdomen and pelvis performed on 08/19/19 showing a normal size liver. The patient is status post cholecystectomy, a spleen that was normal, and no CBD dilatation. A subsequent right upper quadrant ultrasound was then performed on 08/21/19 that showed interval enlargement of the liver and mild ascites but no evidence of cirrhosis or biliary pathology. Hep panel was negative. In the [facility], vital signs were stable on presentation at 102/ 46, heart rate 65, 98% on a 3 L. Labs were done which showed ammonia elevated at 140 and a BNP of 500, platelets are low at 71. Creatinine stable. AST mildly elevated at 70, troponin 0.02. A chest x-ray was done at [facility] that showed interstitial edema. The patient was given Lasix 80 mg IV and put out 1300 cc. She had a Vasquez catheter placed on her last admission at [facility] during the course of her UTI. Because of her elevated ammonia, worsening lethargy, and signs and symptoms of significant CHF exacerbation, the patient was requested to be transferred to [facility] for further evaluation and treatment, this hospitalist admitted her for CHF exacerbation. PAST MEDICAL HISTORY: Atrial fibrillation, on anticoagulation, with recent progression to sick sinus syndrome, status post pacemaker placement in June 2019, restless leg syndrome, insulin dependent diabetes, JOSHUA not on CPAP, distant history of uterine cancer, heart failure with reduced ejection fraction with EF of 40% to 45%, obesity. PAST SURGICAL HISTORY: Status post riley, gastric bypass, hysterectomy, toe amputation on bilateral feet, left shoulder arthroscopy, left TKR, appendectomy , gastric bypass. MEDICATIONS: The patient is on; 1. Bisacodyl 10 mg p.o. daily p.r.n. 2. Diphenhydramine 25 mg p.o. q. 8 hours p.r.n. 3. Docusate 100 mg p.o. b.i.d. 4. Insulin glargine 40 units subcutaneous daily. 5. Regular insulin sliding scale with meals. 6. Lactulose 30 mL p.o. t.i.d. 7. Magnesium hydroxide 30 mL p.o. q.h.s. p.r.n. 8. Multivitamin 1 tab p.o. daily. 9. Polyethylene glycol 17 g p.o. daily. 10. Pramipexole 1 mg p.o. q.h.s. 11. Pregabalin 50 mg p.o. t.i.d. 12. Fleet Enema MO daily p.r.n. 13. Tamsulosin 0.4 mg p.o. daily. 14. Trazodone 50 mg p.o. q.h.s. 15. Torsemide 40 mg p.o. daily. 16. Acetaminophen 650 mg p.o. q. 4 hours. 17. Apixaban 5 mg p.o. b.i.d. 18. Atorvastatin 20 mg p.o. q.p.m. 19. Vitamin B12 1000 mcg sublingual daily. 20. Famotidine 20 mg p.o. daily. 21. Metoprolol succinate 50 mg p.o. daily. 22. Spironolactone 25 mg p.o. daily. ALLERGIES: She has no known drug allergies. FAMILY HISTORY: Positive for father with CAD. SOCIAL HISTORY: The patient is domiciled with her . She is a lifetime non- alcohol, non-illicit and non-tobacco user. REVIEW OF SYSTEMS: It is difficult to ascertain secondary to patient's mental status. She is awake and alert, but inattentive and frequently stops answering my questions. PHYSICAL EXAMINATION GENERAL: This is a chronically ill-appearing woman, obese, lying flat in bed, in no acute distress, awake and alert, oriented to herself, month but not to place or situation. VITAL SIGNS: At the time of physical exam, temperature was 97, pulse was 63, respiratory rate 20, oxygen saturation is 99% on 2 L nasal cannula, and blood pressure is 108/62. HEENT: Pupils are equal and reactive. Extraocular muscles are intact. Sclerae are anicteric. Mouth is moist with dentures and no other oropharynx pathology. NECK: Supple with no supraclavicular or cervical lymphadenopathy. RESPIRATORY: The patient has bilateral crackles to lung bases. Distant lung sounds and poor respiratory effort. CARDIAC: The patient has 2/6 systolic ejection murmur heard across the precordium, regular rate and rhythm. Otherwise, pacemaker pocket which appears clean, dry and intact. GI: Belly is obese, soft, nontender, and nondistended with normal active bowel sounds and no palpable organomegaly or tenderness to palpation at right upper quadrant. No evidence of asterixis. No evidence of spider angioma or caput medusae. EXAM: The patient has a Vasquez catheter in place. MUSCULOSKELETAL: The patient moves all 4 limbs spontaneously. EXTREMITIES: The patient's limbs are warm and well perfused. Bilateral lower extremities showed evidence of peripheral vascular disease with chronic venous ulcer notable on left tay. She is status post amputation of toes on left digits 1 through 3 and status post amputation of right fifth toe. The patient has 3 + pitting edema to upper thigh and bilateral lower extremities. NEUROLOGIC: Her cranial nerves II through XII are intact. She is A and O x 1- 2. GCS of 15 but pleasant and cooperative and generally follows basic commands when repeated. DIAGNOSTIC STUDIES/LAB DATA: Labs from [facility] show sodium 139, potassium was hemolyzed, chloride 107, CO2 25, anion gap 7, BUN 30, creatinine 0.9, calcium 9, AST 70, ALT 25, alkaline phos 283, ammonia 140, troponin 0.02, white blood cell count 3.89, hemoglobin 10, hematocrit 35, platelets 71, BNP 500. Chest x-ray was performed at [facility], which showed interstitial edema and an EKG was performed which showed a paced rhythm with no signs of acute ischemia. Imaging, labs, and EKG were reviewed by myself with data collection from [facility]. ASSESSMENT AND PLAN: A 79-year-old female with a past medical history of atrial fibrillation, sick sinus syndrome, status post pacemaker placement on anticoagulation, insulin dependent diabetes, restless leg, obstructive sleep apnea, not compliant on CPAP, heart failure with reduced ejection fraction with EF of 40% to 45%, who is presenting from [facility] with complaint of subacute history of worsening lethargy and elevated ammonia and clinically on exam here found to have gross volume overload consistent with congestive heart failure exacerbation. Differential for the patient with elevated ammonia in the setting of gross volume overload is most concerning for congestive hepatopathy and transient disruption in synthetic function. Alternatively, the patient could have possible new developing liver injury or fibrosis from steatosis or other injury in the setting of negative hepatitis panel. Finally and least likely the patient could have elevated ammonia from slow GI bleed in the setting of being on Eliquis. She will be admitted for diuresis and further investigation of her elevated ammonia and lethargy. 1. Congestive heart failure exacerbation in a patient with known heart failure with reduced ejection fraction. The patient is grossly volume overloaded on exam. We will place on Lasix 60 IV b.i.d. Continue with Vasquez. Strict I's and O's, place on telemetry, and continue home spironolactone. 2. Elevated ammonia. The patient is without asterixis. She does have thrombocytopenia, but no other clear signs of synthetic dysfunction or david liver failure. Imaging shows no cirrhosis from 08/20 according to [facility] documentation though she does have an enlarged liver consistent with steatosis. She has been on lactulose at her [facility] and this can be continued with once daily dosing. We will check fecal occult blood to rule out GI bleed and UA to rule out proteus which can also cause elevated ammonia levels. Most likely, this patient has congestive hepatopathy from gross volume overload which may be interfering with her urea ammonia cycle. 3. Atrial fibrillation and sick sinus syndrome, status post pacemaker placement. We will continue the patient on anticoagulation for now and metoprolol if FOBT is positive. Obviously, we would reconsider anticoagulation. 4. Insulin dependent diabetes. Her home Lantus is 40 units. The patient report from [facility] states she has had poor p.o. intake. We will lower to 30 units and continue sliding scale lispro with a.c. and h.s. fingersticks. 5. Obstructive sleep apnea. The patient is on a CPAP at home. If signs of retention, consider ABG to determine if lethargy could have underlying hypercarbia component. 6. Restless leg. The patient's Lyrica dose was lowered from 50 t.i.d. to 25 t.i.d. given her lethargy and holding her nightly pramipexole. 7. Non-ischemic cardiomyopathy. The patient has had a cath in somewhat recent history and that was clean. She is on metoprolol and spironolactone. 8. DVT prophylaxis. The patient is already on therapeutic anticoagulation with Eliquis. The patient will be continued with this for now. 9. Gastroesophageal reflux disease. Continue the patient's H2 kevin. DISPOSITION: The patient is stable for admission for CHF exacerbation to [address] [place] [address]. CODE STATUS: Full. AMBULATION STATUS: The patient was Ananth dependent in last hospitalization. PT and OT has been ordered for her. DIET: Carb consistent. TIME SPENT: Sixty five minutes was spent in planning of this admission with over half of that spent directly at the bedside with the patient providing direct patient care and coordinating care. Plan of care was discussed with the patient who agrees with the admission and has no further questions. [id number]/[facility] #: [id number] MTDD
[2019-08-26] MEDS: Insulin LISPRO* 1 UNITS UNIT SUBCUT SCH ×4 (08:23→21:48)
[2019-08-26] MEDS ORDERED: Apixaban* 5 MG TAB PO SCH (09:00)
[2019-08-26] MEDS: Furosemide IV* 10 MG/ML 10 ML VIAL (100 MG) IV SCH ×2 (09:25→17:39)
[2019-08-26] MEDS: Insulin GLARGINE(*) 1 UNITS UNIT SUBCUT SCH (09:25)
[2019-08-26] MEDS: Spironolactone TAB* 25 MG PO SCH (09:25)
[2019-08-26] MEDS: Famotidine TAB* 20 MG PO SCH (09:26)
[2019-08-26] MEDS: Cyanocobalamin TAB* 500 MCG PO SCH (09:26)
[2019-08-26] MEDS: Metoprolol Succinate XL TAB* 50 MG PO SCH (09:27)
--- NOTE | 2019-08-26 10:57 | PN ---
Subjective Date of Service: 08/26/19 Interval History: Patient stated that she felt ok, mildly short of breath. Abdomen tender. Denied lightheadedness, dizziness, fever, chills, chest pain, palpitations, abdominal pain, nausea, or vomiting. Nursing concerned due frequent pauses and PVC's on her telemetry. Dr. Sanchez reviewed strips and stated that complexes were low voltage and not being read by the machine, is not in fact, andre or having pauses and that the pacer appears to be working correctly. Family History: Unchanged from Admission Social History: Unchanged from Admission Past Medical History: Unchanged from Admission Objective Active Medications: Acetaminophen (Tylenol Tab*) 650 mg PO Q4H PRN PRN Reason: MILD PAIN or TEMP > 100.4 Apixaban (Eliquis*) 5 mg PO BID [facility] Last Admin: 08/26/19 09:26 Dose: 5 mg Atorvastatin Calcium (Lipitor*) 20 mg PO BEDTIME [facility] Cyanocobalamin (Vitamin B12 Tab*) 1,000 mcg PO DAILY [facility] Last Admin: 08/26/19 09:26 Dose: 1,000 mcg Famotidine (Pepcid Tab*) 20 mg PO DAILY [facility] Last Admin: 08/26/19 09:26 Dose: 20 mg Furosemide (Lasix Iv*) 60 mg IV 0800,1700 [facility] Last Admin: 08/26/19 09:25 Dose: 60 mg Insulin Glargine (Lantus(*)) 30 units SUBCUT Q24H [facility] Last Admin: 08/26/19 09:25 Dose: 30 units Insulin Human Lispro (Humalog*) 0 units SUBCUT ACHS [facility]; Protocol Last Admin: 08/26/19 08:23 Dose: Not Given Lactulose (Lactulose*) 30 ml PO TID [facility] Metoprolol Succinate (Toprol Xl Tab*) 50 mg PO DAILY [facility] Last Admin: 08/26/19 09:27 Dose: Not Given Pregabalin (Lyrica 25 Mg Cap (*)) 25 mg PO TID [facility] Spironolactone (Aldactone Tab*) 25 mg PO DAILY [facility] Last Admin: 08/26/19 09:25 Dose: 25 mg Vital Signs - 8 hr 08/26/19 08/26/19 08/26/19 03:50 03:52 03:56 Temperature 97.0 F Pulse Rate 71 62 63 Respiratory 20 Rate Blood Pressure 108/62 108/62 (mmHg) O2 Sat by Pulse 94 98 99 Oximetry 08/26/19 08/26/19 08/26/19 04:00 05:04 05:05 Temperature Pulse Rate 60 60 Respiratory Rate Blood Pressure 106/56 (mmHg) O2 Sat by Pulse 96 100 Oximetry 08/26/19 08/26/19 08/26/19 05:22 05:56 06:35 Temperature 96.9 F 97 F Pulse Rate 60 60 63 Respiratory 20 21 Rate Blood Pressure 103/50 106/56 106/67 (mmHg) O2 Sat by Pulse 100 100 100 Oximetry 08/26/19 08/26/19 08:00 09:53 Temperature 94.7 F Pulse Rate 61 Respiratory 16 Rate Blood Pressure 99/51 (mmHg) O2 Sat by Pulse 100 Oximetry Oxygen Devices in Use Now: Nasal Cannula Appearance: Pale, drowsy. Well developed, obese older woman seen sitting up in bed. Eyes: No Scleral Icterus, PERRLA Ears/Nose/Mouth/Throat: NL Teeth, Lips, Gums, Clear Oropharnyx, Mucous Membranes Moist Neck: NL Appearance and Movements; NL JVP, Trachea Midline Respiratory: Symmetrical Chest Expansion and Respiratory Effort, - - Crackles to left lower lung. Cardiovascular: NL Sounds; No Murmurs; No JVD, - - Heart rate irregular. +1-2 non-pitting edema to bilateral LE Abdominal: - - Abdomen soft, diffusely tender to upper quadrants, +BSx4. Lymphatic: No Cervical Adenopathy Extremities: No Clubbing, Cyanosis Skin: - - Multiple scabs to bilateral LE. Roughly 1x1cm open area to left anterior tay, open to air, no driange, wound bed pink, edges benign. Neurological: Alert and Oriented x 3 Lines/Tubes/Other Access: Clean, Dry and Intact Peripheral IV Result Diagrams: 08/26/19 04:59 08/26/19 04:59 Assess/Plan/Problems-Billing Assessment: - Patient Problems (1) Hyperammonemia Current Visit: Yes Status: Acute Code(s): E72.20 - DISORDER OF UREA CYCLE METABOLISM, UNSPECIFIED SNOMED Code(s): 3066143 Comment: - Ammonia 146 on 08/24.Typically takes laculose TID at home, which as been reordered for here. Rechecking ammonia level today. If little improvement, I will order rifaximin. - LDH, PT and bilirubin are high. Dr. Melo consulted, he does not believe this to be a result of MORTENSEN ebcause her ALT's have consistently been low. He feels this is a result of right sided heart failure. - Will need aggressive diuresis to help treat her liver. -Continue lactulose TID. (2) Acute on chronic systolic heart failure Current Visit: No Status: Acute Code(s): I50.23 - ACUTE ON CHRONIC SYSTOLIC (CONGESTIVE) HEART FAILURE SNOMED Code(s): 721946024 Comment: - Unsure as to what precepitated it. - Receiving lasix 60mg IV BID. - Keep bonilla through diuresis for I/O monitoring. - Continue metoprolol. - Continue I/O, daily weights (3) COPD (chronic obstructive pulmonary disease) Current Visit: No Status: Acute Code(s): J44.9 - CHRONIC OBSTRUCTIVE PULMONARY DISEASE, UNSPECIFIED SNOMED Code(s): 52562650 Comment: - Is not on inhalers at home. Ordered duonebs while inpatient. Patient may be in slight exacerbation secondary to her CHF exacerbation. I feel that her exacerbation will resolve with diuresis. (4) Hypothermia Current Visit: No Status: Acute Code(s): T68.XXXA - HYPOTHERMIA, INITIAL ENCOUNTER SNOMED Code(s): 204885198 Comment: - Temperate was just over 94F rectally, ordered bear hugger to warm to 36C. Blood sugar was over 200. Feel this may be a result of possible hemolysis. Reculocyte, haptoglobin and LDH ordered. I do not suspect infection. (5) Tachy-anrde syndrome Current Visit: No Status: Acute Code(s): I49.5 - SICK SINUS SYNDROME SNOMED Code(s): 54171054 Comment: -Pacer placed 07/[address] Manrique[address] Telemetry in place, machine is reading pauses and bradycardia. Dr. Sanchez reviewed the strips and stated that the QRS complexes are low voltage and the machine is not reading them correctly. There are no pauses and pacer appears to be functioning correctly. -Incision to left upper chest wall is healed without any SS of infection. (6) Diabetes Current Visit: No Status: Chronic Code(s): E11.9 - TYPE 2 DIABETES MELLITUS WITHOUT COMPLICATIONS SNOMED Code(s): 53151620 Comment: - Hgb A1C 7.2% on 06/18/19 -continue lantus 30 -continue lispro ss with FS AC (7) Hyperlipidemia Current Visit: No Status: Chronic Code(s): E78.5 - HYPERLIPIDEMIA, UNSPECIFIED SNOMED Code(s): 13471516 Comment: - Continue atorvastatin (8) Hypertension Current Visit: No Status: Chronic Code(s): I10 - ESSENTIAL (PRIMARY) HYPERTENSION SNOMED Code(s): 70769662 Comment: - SBP 90-100s - Continue metoprolol - Hold spironolactone (9) Restless leg syndrome Current Visit: No Status: Chronic Comment: - Pregabalin and pramipraxole discontinued as it may have contributed to her CHF exacerbation. (10) DVT prophylaxis Current Visit: No Status: Acute Code(s): YWB0226 - SNOMED Code(s): 736846012 Comment: -Continue apixaban. (11) Full code status Current Visit: No Status: Acute Code(s): Z78.9 - OTHER SPECIFIED HEALTH STATUS SNOMED Code(s): 305364446 Status and Disposition: Condition: Guarded Disposition: Admit inpatient to . Attending: Mariola Walton
[2019-08-26] MEDS ORDERED: Albuterol/Ipratropium NEB.SOL* Albuterol 2.5 MG/Ipratropium 0.5 MG 3 ML INH PRN (11:10)
[2019-08-26 11:11] LABS: Corrected Retic Count 1.8 % (0.5-1.5); Hematocrit for Retic CNT 34 % (35-47); Immature Retic Fraction 0.67; RBC Retic Count 3.88 10^6/uL (3.70-4.87)
[2019-08-26] MEDS: Pregabalin 25 mg CAP (*) PO SCH ×2 (13:04→21:49)
--- NOTE | 2019-08-26 18:29 | CONS ---
GASTROENTEROLOGY CONSULT: DATE: 08/26/19 CONSULTING PHYSICIANS: Dr. Mercedes Escamilla, Dr. Damaso Sylvester. REASON FOR CONSULTATION: Decreased mental status, anemia, elevated ammonia and other abnormal LFTs in a woman with morbid obesity and biventricular failure. HISTORY: This 79-year-old woman, weighing 258, with longstanding diabetes and peripheral vascular disease (status post left toe amputations), has had history of non ischemic congestive failure (normal coronaries in 2014) for quite some time described as cor pulmonale in Dr Sanchez's June consult . She has atrial fibrillation and then developed bradycardia and had a pacer placed 2 months ago. She is known to have dilated atria and tricuspid regurgitation. She [facility] over the last couple of months starting with an admission here for hypoglycemia on . Most recently she was at a nursing facility in [place] and reportedly had a urinary infection with some signs of sepsis. Coming here in the cover seamer hours, she was confused with diminished mental status and was short of breath. She appeared grossly fluid overloaded to Dr. Wright, the heel reducer. Her BUN was 31, creatinine 0.9, ammonia 140, INR 2.43 (on Eliquis), and platelets 71. Hemoglobin was 10.5, hematocrit 33, and stool heme- negative. Since admission to telemetry, she has been diuresed putting out 1300 cc per the admitting notes. The nurse now 8 hours into her shift says that she ate virtually all of her breakfast and half her lunch and has been stating she is feeling a little better. She has not complained of pain. There has been no emesis, fever, and she has had 2 small formed stools. PAST MEDICAL HISTORY: 1. Morbid obesity. 2. Bariatric surgery in [place] in the , details not available. 3. Total hysterectomy for uterine cancer - 1989. 4. Longstanding diabetes, on insulin. 5. Peripheral vascular disease with left toe amputations in 2014. 6. Status post cholecystectomy before 1999. 7. Dilated cardiomyopathy - Dr. Sanchez evaluated her in June and she is known to have biatrial dilation, pulmonary hypertension, and tricuspid regurgitation. He refers to it as cor pulmonale. 8. Sleep apnea - noncompliant with CPAP. 9. Umbilical hernia repair. 10. Appendectomy. 11. Left total knee in 2013. 12. Left shoulder rotator cuff repair. 13. Abnormal liver functions /elevated alkaline phosphatase - in June, she was first noted to have an elevated ammonia at 84. Her ALT was normal and has been normal over a dozen determinations from 2013 onward as has been the bilirubin initially and then showing an upward trend beginning in June 2018. Most striking has been the alkaline phosphatase rising progressively since 2014 to currently 260s along with an elevated bili. 14. Permanent pacemaker placement - she had atrial arrhythmias and then had bradycardia. She was on Coumadin since at least 2007 for at fib and says she never had any complications from that or bleeding. She cannot recall when she was switched to Eliquis. She has never had any overt bleeding from that. 15. Anemia - she believes she had a colonoscopy a number of years ago, but can give no further detail. She denies any history of upper endoscopy or chronic acid indigestion. Her first studies looking into anemia, B12 normal at 800 and iron saturation 16% with ferritin 74 were done in June 2019. [facility] records sporadically reviewed from 2013 to 2017 do not mention anemia or a gastrointestinal workup at all. MEDICATIONS: At home, she is on: 1. Insulin. 2. Apixaban (Eliquis) 5 mg b.i.d. 3. Torsemide 40 daily. 4. Spironolactone 25. 5. Metoprolol 50. 6. Atorvastatin 40. 7. Lactulose. SOCIAL HISTORY: She is . She has a daughter living in [place]. REVIEW OF SYSTEMS: She had a negative cardiac catheterization in November 2014 with normal coronaries. Cortisol level was normal 19.11 at 9 a.m. in June 2019. CBC in February 2015 in the [facility] system showed hemoglobin 11.7, hematocrit 36.9, MCV 91. There is no history of seizure, CVA, david syncope, hemoptysis, TB, NV, over hepatitis, jaundice, or rectal bleeding. EXAM: She is a morbidly obese, chronically ill-appearing woman, in bed, breathless, at 30 degrees elevation with a face mask on. She has numerous subcutaneous ecchymoses. She is oriented to being in the hospital, but thought she was in [place] and did not know the day. She did know some of her medicines including Eliquis. HEENT exam shows no focal lesion other than the ecchymoses. The neck is obese and it is difficult to see the venous condition. Breath sounds are diminished symmetrically. Heart sounds are irregular. There is an uninflamed pacer incision into the left subclavicular area. The abdomen is obese, very protuberant with a panniculus, symmetric, and there is no overt tenderness, but the exam is quite limited. Legs show chronic edema with hyperpigmentation and amputations of the left toes. She moves all 4 extremities in a limited fashion symmetrically. IMPRESSION: This 79-year-old woman with longstanding diabetes and longstanding cardiac rhythm issues and biventricular failure, now has diminished liver synthetic function, which is unexpected given the absence of a longstanding history of parenchymal liver disease. The well-documented biventricular failure and tricuspid regurgitation along with the gradual escalation in alkaline phosphatase with a normal ALT over many years point very strongly towards congestive hepatic dysfunction probably on the basis of both venous and arterial difficulties. There may be some minimal back-ground fatty liver abnormality, but with the well- documented normal ALT over many years is probably a minimal contribution. Her prognosis will be dominated by her respiratory and cardiac condition and largely determined by her obesity and age. No specific further diagnostic studies appear needed. [id number]/[facility] #: [id number] [facility]
[2019-08-26] MEDS: Atorvastatin* 20 MG TAB PO SCH (21:48)
[2019-08-27 06:31] LABS: BUN/Creatinine Ratio 35.4 (8-20); Calcium 9.2 mg/dL (8.6-10.3); EGFR African American 81.6 (>60); EGFR Non-African American 67.4 (>60); Potassium 4.5 mmol/L (3.5-5.0)
[2019-08-27 08:52] LABS: ABS Eosinophils 0.2 10^3/ul (0-0.6); ABS Lymphocytes 0.6 10^3/ul (1.0-4.8); ABS Monocytes 0.5 10^3/ul (0-0.8); ABS Neutrophils 4.5 10^3/ul (1.5-7.7); Eosinophil % 2.8 %; Hematocrit 33 % (35-47); Hemoglobin 10.5 g/dL (12.0-16.0); Lymphocyte % 10.1 %; Mean Corpuscular HGB Conc 32 g/dL (31-36); Mean Corpuscular Hemoglobin 27 pg (27-31); Mean Corpuscular Volume 85 fL (80-97); Mean Platelet Volume 9.4 fL (7.4-10.4); Nucleated Red Blood Cells % 0.7; Platelet Count 85 10^3/uL (150-450); Red Cell Distribution Width 24 % (10-15); White Blood Count 5.8 10^3/uL (3.5-10.8)
[2019-08-27 09:01] LABS: ALT 14 U/L (7-52); AST 42 U/L (13-39); Albumin 2.8 g/dL (3.2-5.2); Albumin/Globulin Ratio 0.7 (1-3); Alkaline Phosphatase 235 U/L (34-104); Anion Gap 4 mmol/L (2-11); BUN/Creatinine Ratio 35.8 (8-20); Blood Urea Nitrogen 29 mg/dL (6-24); CO2 Carbon Dioxide 30 mmol/L (22-32); Calcium 9.1 mg/dL (8.6-10.3); Chloride 105 mmol/L (101-111); EGFR African American 82.7 (>60); EGFR Non-African American 68.4 (>60); Globulin 3.8 g/dL (2-4); Glucose 63 mg/dL (70-100); Magnesium 1.8 mg/dL (1.9-2.7); Potassium 4.3 mmol/L (3.5-5.0); Sodium 139 mmol/L (135-145); Total Protein 6.6 g/dL (6.4-8.9)
[2019-08-27] MEDS: Insulin LISPRO* 1 UNITS UNIT SUBCUT SCH ×4 (09:11→20:45)
[2019-08-27] MEDS ORDERED: Magnesium Sulfate 2 GM IV* 2 GM/50 ML BAG IVPB ONE (10:23)
[2019-08-27] MEDS: Multivitamins/Minerals TAB PO SCH (10:25)
[2019-08-27] MEDS: Cyanocobalamin TAB* 500 MCG PO SCH (10:25)
[2019-08-27] MEDS: Spironolactone TAB* 25 MG PO SCH (10:25)
[2019-08-27] MEDS: Pregabalin 25 mg CAP (*) PO SCH ×3 (10:26→20:45)
[2019-08-27] MEDS: Metoprolol Succinate XL TAB* 50 MG PO SCH (10:26)
[2019-08-27] MEDS: Furosemide IV* 10 MG/ML 10 ML VIAL (100 MG) IV SCH ×2 (10:27→17:29)
[2019-08-27] MEDS: Famotidine TAB* 20 MG PO SCH (10:27)
[2019-08-27] MEDS: Insulin GLARGINE(*) 1 UNITS UNIT SUBCUT SCH (10:27)
[2019-08-27 11:37] LABS: % Iron Saturation 15 % (15-55); Iron 48 ug/dL (50-212); Total Iron Binding Capacity 325 mcg/dL (250-450); Transferrin 232 mg/dL (203-362)
[2019-08-27 11:57] LABS: Ferritin 130.2 ng/mL (11-307)
[2019-08-27] MEDS: Thiamine INJ* 250 MG in NS 0.9% 100 ML* 100 ML IV SCH (12:00)
--- NOTE | 2019-08-27 13:30 | PN ---
Progress Note - Progress Note Date of Service: 08/27/19 Note: pt seen, more alert, feels better, VS; 109/67, 97.0, 63,18 nad obese no asterixis, oriented x 3 bili down to 1.9, ast down to 42, hgb 10.5, liver us; increase echogenicity, R pl effusion 79 yo female with cardiac congestive hepatopathy; ms improving, labs improving no changes, will follow Duglas Coronel MD
--- NOTE | 2019-08-27 14:55 | PN ---
Subjective Date of Service: 08/27/19 Interval History: Patient is feeling SOB. Patient is feeling very weak and getting exhausted with minimal exertion. Patient denies CP, F/C, N/V, abdominal pain, dizziness, palpitations, diarrhea. Patient states she had her gastric bypass in the 90s and has never been on vitamin supplementation or follow up with her surgeon routinely. Family History: Unchanged from Admission Social History: Unchanged from Admission Past Medical History: Unchanged from Admission Objective Active Medications: Acetaminophen (Tylenol Tab*) 650 mg PO Q4H PRN PRN Reason: MILD PAIN or TEMP > 100.4 Albuterol/Ipratropium (Duoneb (Albuterol 2.5 Mg/Ipratropium 0.5 Mg)) 1 neb INH Q4H PRN PRN Reason: SOB/WHEEZING Atorvastatin Calcium (Lipitor*) 20 mg PO BEDTIME [facility] Last Admin: 08/26/19 21:48 Dose: 20 mg Cyanocobalamin (Vitamin B12 Tab*) 1,000 mcg PO DAILY [facility] Last Admin: 08/27/19 10:25 Dose: 1,000 mcg Famotidine (Pepcid Tab*) 20 mg PO DAILY [facility] Last Admin: 08/27/19 10:27 Dose: 20 mg Furosemide (Lasix Iv*) 60 mg IV 0800,1700 [facility] Last Admin: 08/27/19 10:27 Dose: 60 mg Thiamine HCl 250 mg/ Sodium (Chloride) 102.5 mls @ 205 mls/hr IV Q24H [facility] Last Admin: 08/27/19 12:00 Dose: 205 mls/hr Insulin Glargine (Lantus(*)) 30 units SUBCUT Q24H [facility] Last Admin: 08/27/19 10:27 Dose: 30 units Insulin Human Lispro (Humalog*) 0 units SUBCUT ACHS [facility]; Protocol Last Admin: 08/27/19 11:55 Dose: 3 units Lactulose (Lactulose*) 30 ml PO TID [facility] Last Admin: 08/27/19 14:22 Dose: 30 ml Metoprolol Succinate (Toprol Xl Tab*) 50 mg PO DAILY [facility] Last Admin: 08/27/19 10:26 Dose: Not Given Multivitamins/Minerals (Theragran/Minerals Tab*) 1 tab PO DAILY [facility] Last Admin: 08/27/19 10:25 Dose: 1 tab Nystatin (Nystatin Top Powder*) 1 applic TOPICAL BID [facility] Pregabalin (Lyrica 25 Mg Cap (*)) 25 mg PO TID [facility] Last Admin: 08/27/19 14:22 Dose: 25 mg Spironolactone (Aldactone Tab*) 25 mg PO DAILY [facility] Last Admin: 08/27/19 10:25 Dose: 25 mg Vital Signs - 8 hr 08/27/19 08/27/19 08/27/19 07:15 08:00 10:26 Temperature 97.0 F Pulse Rate 62 Respiratory 20 20 20 Rate Blood Pressure 97/41 (mmHg) O2 Sat by Pulse 100 Oximetry 08/27/19 08/27/19 08/27/19 11:15 12:02 12:19 Temperature 97.2 F Pulse Rate 67 Respiratory 20 18 Rate Blood Pressure 93/67 (mmHg) O2 Sat by Pulse 93 96 Oximetry 08/27/19 14:22 Temperature Pulse Rate Respiratory 18 Rate Blood Pressure (mmHg) O2 Sat by Pulse Oximetry Oxygen Devices in Use Now: Nasal Cannula Appearance: Patient is a 79yo female who appears stated age, is morbidly obese and is sitting in the bed in [facility]. Eyes: No Scleral Icterus, PERRLA Ears/Nose/Mouth/Throat: NL Teeth, Lips, Gums, Clear Oropharnyx, Mucous Membranes Moist Neck: NL Appearance and Movements; NL JVP, Trachea Midline Respiratory: Symmetrical Chest Expansion and Respiratory Effort, - - Rales in B/ L Lower lobes. Cardiovascular: NL Sounds; No Murmurs; No JVD, RRR, - - 2+ B/L LE edema, chronic venous stasis changes. Abdominal: NL Sounds; No Tenderness; No Distention, No Hepatosplenomegaly Lymphatic: No Cervical Adenopathy Extremities: No Edema, No Clubbing, Cyanosis Skin: No Nodules or Sclerosis Neurological: Alert and Oriented x 3, NL Muscle Strength and Tone, - - Peripheral neuropathy to the mid-calf Result Diagrams: 08/27/19 08:21 08/27/19 08:21 Microbiology and Other Data: Microbiology 08/26/19 05:25 Urine Culture - Final Urine No Growth (<1,000 CFU/mL) 08/26/19 14:20 Stool Occult Blood (PEREZ) - Final Stool Assess/Plan/Problems-Billing Assessment: Patient is a 79yo female with a PMH for HFrEF due to HICM, DM II with diabetic neuropathy, LE Osteomyelitis, here with AMS and Hyperammonemia believed to be related to congestive hepatopathy. Improving on treatment with lactulose and diuresis. - Patient Problems (1) Hyperammonemia Current Visit: Yes Status: Acute Code(s): E72.20 - DISORDER OF UREA CYCLE METABOLISM, UNSPECIFIED SNOMED Code(s): 0398280 Comment: - With Encephalopathy - Ammonia 146 on 08/24.Laculose TID at home - LDH, PT and bilirubin are high. Dr. Melo consulted, he does not believe this to be a result of MORTENSEN because her ALT's have consistently been low. He feels this is a result of right sided heart failure. - Will need aggressive diuresis to help treat her liver. - Continue lactulose TID. (2) Acute on chronic systolic heart failure Current Visit: No Status: Acute Code(s): I50.23 - ACUTE ON CHRONIC SYSTOLIC (CONGESTIVE) HEART FAILURE SNOMED Code(s): 448426927 Comment: - Unsure as to what precepitated this - Receiving lasix 60mg IV BID and resume spironolactone - Keep bonilla through diuresis for I/O monitoring. - Continue metoprolol, Spironolactone. - Continue I/O, daily weights - Due to NICM, clean cath. With history of gastric bypass, will supplement thiamine initally daily and check a whole blood B1 level. - Supplement Iron IV due to DOMONIQUE and HFrEF (3) COPD (chronic obstructive pulmonary disease) Current Visit: No Status: Acute Code(s): J44.9 - CHRONIC OBSTRUCTIVE PULMONARY DISEASE, UNSPECIFIED SNOMED Code(s): 72597797 Comment: - Is not on inhalers at home. Ordered duonebs while inpatient. - SOB and wheezing more likely due to CHF (4) Encephalopathy Current Visit: No Status: Acute Code(s): G93.40 - ENCEPHALOPATHY, UNSPECIFIED SNOMED Code(s): 71320909 Comment: - Possibly related to hyperammonemia. (5) JOSHUA (obstructive sleep apnea) Current Visit: No Status: Acute Code(s): G47.33 - OBSTRUCTIVE SLEEP APNEA ( ADULT) (PEDIATRIC) SNOMED Code(s): 89727830 Comment: - Non-compliant with CPAP - Possibly contributing to Right Sided Heart Failure and congestive Hepatopathy. (6) Afib Current Visit: No Status: Chronic Code(s): I48.91 - UNSPECIFIED ATRIAL FIBRILLATION SNOMED Code(s): 43253046 Comment: - Chronic, rate controlled on Metoprolol - Continue apixaban - Continue tele (7) Diabetes Current Visit: No Status: Chronic Code(s): E11.9 - TYPE 2 DIABETES MELLITUS WITHOUT COMPLICATIONS SNOMED Code(s): 88941397 Comment: - Hgb A1C 7.2% on 06/18/19 - Continue lantus 30 - Continue lispro ss with FS AC - Complicated by neuropathy and diabetic foot infections. (8) Hyperlipidemia Current Visit: No Status: Chronic Code(s): E78.5 - HYPERLIPIDEMIA, UNSPECIFIED SNOMED Code(s): 11994882 Comment: - Continue atorvastatin (9) Hypertension Current Visit: No Status: Chronic Code(s): I10 - ESSENTIAL (PRIMARY) HYPERTENSION SNOMED Code(s): 87939504 Comment: - SBP 90-100s - Continue metoprolol, Lasix - Resume spironolactone to augment diuresis (10) Restless leg syndrome Current Visit: No Status: Chronic Comment: - Continue to hold Pramiprexole and Pregabalin due to hypothetical concerns about HF exacerbation (11) Full code status Current Visit: No Status: Acute Code(s): Z78.9 - OTHER SPECIFIED HEALTH STATUS SNOMED Code(s): 153112891 (12) DVT prophylaxis Current Visit: No Status: Acute Code(s): XLS6896 - SNOMED Code(s): 073028562 Comment: -Continue apixaban. Status and Disposition: Condition: Stable. Disposition: Admit inpatient to .
[2019-08-27] MEDS: Atorvastatin* 20 MG TAB PO SCH (20:44)
[2019-08-27] MEDS: Apixaban* 5 MG TAB PO SCH (20:44)
[2019-08-27] MEDS: Nystatin TOP POWDER* 15 GM BTL TOPICAL SCH (21:04)
[2019-08-28 06:23] LABS: ABS Eosinophils 0.2 10^3/ul (0-0.6); ABS Lymphocytes 0.7 10^3/ul (1.0-4.8); ABS Monocytes 0.5 10^3/ul (0-0.8); ABS Nucleated RBC 0.1 10^3/ul; Eosinophil % 3.5 %; Hematocrit 32 % (35-47); Hemoglobin 10.1 g/dL (12.0-16.0); Lymphocyte % 12.2 %; Mean Corpuscular HGB Conc 31 g/dL (31-36); Mean Corpuscular Hemoglobin 27 pg (27-31); Mean Corpuscular Volume 85 fL (80-97); Mean Platelet Volume 9.1 fL (7.4-10.4); Nucleated Red Blood Cells % 1.1; Platelet Count 83 10^3/uL (150-450); Red Blood Count 3.78 10^6 /uL (3.70-4.87); Red Cell Distribution Width 25 % (10-15); White Blood Count 5.4 10^3/uL (3.5-10.8)
[2019-08-28 06:33] LABS: BUN/Creatinine Ratio 32.9 (8-20); EGFR African American 89.1 (>60); EGFR Non-African American 73.6 (>60); Magnesium 1.8 mg/dL (1.9-2.7); Potassium 3.7 mmol/L (3.5-5.0)
[2019-08-28] MEDS: Insulin LISPRO* 1 UNITS UNIT SUBCUT SCH ×4 (07:40→22:17)
[2019-08-28] MEDS: Furosemide IV* 10 MG/ML 10 ML VIAL (100 MG) IV SCH ×2 (07:51→16:45)
[2019-08-28] MEDS: Cyanocobalamin TAB* 500 MCG PO SCH (07:53)
[2019-08-28] MEDS: Multivitamins/Minerals TAB PO SCH (07:53)
[2019-08-28] MEDS: Metoprolol Succinate XL TAB* 50 MG PO SCH (07:53)
[2019-08-28] MEDS: Famotidine TAB* 20 MG PO SCH (07:53)
[2019-08-28] MEDS: Apixaban* 5 MG TAB PO SCH ×2 (07:54→22:04)
[2019-08-28] MEDS: Pregabalin 25 mg CAP (*) PO SCH ×3 (07:54→22:02)
[2019-08-28] MEDS: Spironolactone TAB* 25 MG PO SCH (07:54)
[2019-08-28] MEDS: Nystatin TOP POWDER* 15 GM BTL TOPICAL SCH ×2 (07:55→22:19)
[2019-08-28] MEDS: Insulin GLARGINE(*) 1 UNITS UNIT SUBCUT SCH (10:16)
[2019-08-28] MEDS: Iron Sucrose* 200 MG in NS 0.9% 100 ML* 100 ML IVPB SCH (10:17)
[2019-08-28] MEDS: Thiamine INJ* 250 MG in NS 0.9% 100 ML* 100 ML IV SCH (12:10)
[2019-08-28] MEDS ORDERED: Magnesium Sulfate 1 GM IV* 1 GM/100 ML BAG IV ONE (15:49)
--- NOTE | 2019-08-28 15:58 | PN ---
Subjective Date of Service: 08/28/19 Interval History: Patient is feeling well. Patient denies dizziness. Patient denies F/C, N/V, abdominal pain, CP, SOB, palpitations or other pain. Patient is still visibly tachypneic. Patient had one large watery BM today. Family History: Unchanged from Admission Social History: Unchanged from Admission Past Medical History: Unchanged from Admission Objective Active Medications: Acetaminophen (Tylenol Tab*) 650 mg PO Q4H PRN PRN Reason: MILD PAIN or TEMP > 100.4 Albuterol/Ipratropium (Duoneb (Albuterol 2.5 Mg/Ipratropium 0.5 Mg)) 1 neb INH Q4H PRN PRN Reason: SOB/WHEEZING Apixaban (Eliquis*) 5 mg PO BID [facility] Last Admin: 08/28/19 07:54 Dose: 5 mg Atorvastatin Calcium (Lipitor*) 20 mg PO BEDTIME [facility] Last Admin: 08/27/19 20:44 Dose: 20 mg Cyanocobalamin (Vitamin B12 Tab*) 1,000 mcg PO DAILY [facility] Last Admin: 08/28/19 07:53 Dose: 1,000 mcg Famotidine (Pepcid Tab*) 20 mg PO DAILY [facility] Last Admin: 08/28/19 07:53 Dose: 20 mg Furosemide (Lasix Iv*) 60 mg IV 0800,1700 [facility] Last Admin: 08/28/19 07:51 Dose: 60 mg Thiamine HCl 250 mg/ Sodium (Chloride) 102.5 mls @ 205 mls/hr IV Q24H [facility] Last Admin: 08/28/19 12:10 Dose: 205 mls/hr Iron Sucrose 200 mg/ Sodium (Chloride) 110 mls @ 440 mls/hr IVPB DAILY [facility] Stop: 09/01/19 09:14 Last Admin: 08/28/19 10:17 Dose: 440 mls/hr Magnesium Sulfate/Dextrose (Magnesium Sulfate 1 Gm Iv*) 1 gm in 100 mls @ 200 mls/hr IV ONCE ONE Stop: 08/28/19 16:18 Insulin Glargine (Lantus(*)) 25 units SUBCUT Q24H [facility] Last Admin: 08/28/19 10:16 Dose: 25 units Insulin Human Lispro (Humalog*) 0 units SUBCUT [facility]; Protocol Last Admin: 08/28/19 13:39 Dose: 3 units Lactulose (Lactulose*) 30 ml PO TID [facility] Last Admin: 08/28/19 13:48 Dose: 30 ml Metoprolol Succinate (Toprol Xl Tab*) 50 mg PO DAILY [facility] Last Admin: 08/28/19 07:53 Dose: 50 mg Multivitamins/Minerals (Theragran/Minerals Tab*) 1 tab PO DAILY [facility] Last Admin: 08/28/19 07:53 Dose: 1 tab Nystatin (Nystatin Top Powder*) 1 applic TOPICAL BID [facility] Last Admin: 08/28/19 07:55 Dose: 1 applic Pregabalin (Lyrica 25 Mg Cap (*)) 25 mg PO TID [facility] Last Admin: 08/28/19 13:48 Dose: 25 mg Spironolactone (Aldactone Tab*) 25 mg PO DAILY [facility] Last Admin: 08/28/19 07:54 Dose: 25 mg Vital Signs - 8 hr 08/28/19 08/28/19 08/28/19 08:00 10:17 11:15 Temperature 96 F Pulse Rate 73 Respiratory 20 20 Rate Blood Pressure 101/65 (mmHg) O2 Sat by Pulse 100 Oximetry 08/28/19 13:48 Temperature Pulse Rate Respiratory 20 Rate Blood Pressure (mmHg) O2 Sat by Pulse Oximetry Oxygen Devices in Use Now: Nasal Cannula Appearance: Patient is a 79yo female who appears stated age and is sitting in the bed in [facility]. Eyes: No Scleral Icterus, PERRLA Ears/Nose/Mouth/Throat: NL Teeth, Lips, Gums, Clear Oropharnyx, Mucous Membranes Moist Neck: NL Appearance and Movements; NL JVP, Trachea Midline Respiratory: Symmetrical Chest Expansion and Respiratory Effort, Clear to Auscultation Cardiovascular: NL Sounds; No Murmurs; No JVD, RRR, - - 1+ B/L LE edema. Abdominal: NL Sounds; No Tenderness; No Distention, No Hepatosplenomegaly Lymphatic: No Cervical Adenopathy Extremities: No Clubbing, Cyanosis Skin: No Nodules or Sclerosis Neurological: Alert and Oriented x 3, NL Muscle Strength and Tone, - - Neuropathy. CN II-XII intact. Result Diagrams: 08/28/19 05:39 08/28/19 05:39 Microbiology and Other Data: Microbiology 08/26/19 05:25 Urine Culture - Final Urine No Growth (<1,000 CFU/mL) 08/26/19 14:20 Stool Occult Blood (PEREZ) - Final Stool Assess/Plan/Problems-Billing Assessment: Patient is a 79yo female with a PMH for HFrEF due to HICM, DM II with diabetic neuropathy, LE Osteomyelitis, here with AMS and Hyperammonemia believed to be related to congestive hepatopathy. Improving on treatment with lactulose and diuresis. - Patient Problems (1) Hyperammonemia Current Visit: Yes Status: Acute Code(s): E72.20 - DISORDER OF UREA CYCLE METABOLISM, UNSPECIFIED SNOMED Code(s): 1144963 Comment: - With Encephalopathy - Ammonia 146 on 08/24.Laculose TID at home - LDH, PT and bilirubin are high. Dr. Melo consulted, he does not believe this to be a result of MORTENSEN because her ALT's have consistently been low. He feels this is a result of right sided heart failure. - Will need aggressive diuresis to help treat her liver. - Continue lactulose TID. - Ammonia nearing normal range. (2) Acute on chronic systolic heart failure Current Visit: No Status: Acute Code(s): I50.23 - ACUTE ON CHRONIC SYSTOLIC (CONGESTIVE) HEART FAILURE SNOMED Code(s): 814104338 Comment: - Unsure as to what precepitated this - Receiving lasix 60mg IV BID and resume spironolactone - Keep bonilla through diuresis for I/O monitoring. - Continue metoprolol, Spironolactone. - Continue I/O, daily weights - Due to NICM, clean cardiac cath. With history of gastric bypass, will supplement thiamine initally daily and check a whole blood B1 level. - Supplement Iron IV due to DOMONIQUE and HFrEF - Consistently negative 2L daily (3) COPD (chronic obstructive pulmonary disease) Current Visit: No Status: Acute Code(s): J44.9 - CHRONIC OBSTRUCTIVE PULMONARY DISEASE, UNSPECIFIED SNOMED Code(s): 06728915 Comment: - Is not on inhalers at home. Ordered duonebs while inpatient. - SOB and wheezing more likely due to CHF (4) Encephalopathy Current Visit: No Status: Acute Code(s): G93.40 - ENCEPHALOPATHY, UNSPECIFIED SNOMED Code(s): 53748587 Comment: - Possibly related to hyperammonemia. (5) JOSHUA (obstructive sleep apnea) Current Visit: No Status: Acute Code(s): G47.33 - OBSTRUCTIVE SLEEP APNEA ( ADULT) (PEDIATRIC) SNOMED Code(s): 94538377 Comment: - Non-compliant with CPAP - Possibly contributing to Right Sided Heart Failure and congestive Hepatopathy. (6) Afib Current Visit: No Status: Chronic Code(s): I48.91 - UNSPECIFIED ATRIAL FIBRILLATION SNOMED Code(s): 53189352 Comment: - Chronic, rate controlled on Metoprolol - Continue apixaban - Continue tele (7) Diabetes Current Visit: No Status: Chronic Code(s): E11.9 - TYPE 2 DIABETES MELLITUS WITHOUT COMPLICATIONS SNOMED Code(s): 52886593 Comment: - Hgb A1C 7.2% on 06/18/19 - Continue lantus 30 - Continue lispro ss with FS AC - Complicated by neuropathy and diabetic foot infections. (8) Hyperlipidemia Current Visit: No Status: Chronic Code(s): E78.5 - HYPERLIPIDEMIA, UNSPECIFIED SNOMED Code(s): 46258672 Comment: - Continue atorvastatin (9) Hypertension Current Visit: No Status: Chronic Code(s): I10 - ESSENTIAL (PRIMARY) HYPERTENSION SNOMED Code(s): 67707479 Comment: - SBP 90-100s - Continue metoprolol, Lasix - Resume spironolactone to augment diuresis (10) Restless leg syndrome Current Visit: No Status: Chronic Comment: - Continue to hold Pramiprexole and Pregabalin due to hypothetical concerns about HF exacerbation (11) Full code status Current Visit: No Status: Acute Code(s): Z78.9 - OTHER SPECIFIED HEALTH STATUS SNOMED Code(s): 392393052 (12) DVT prophylaxis Current Visit: No Status: Acute Code(s): OXU5111 - SNOMED Code(s): 621259771 Comment: -Continue apixaban. Status and Disposition: Condition: Stable. Disposition: Admit inpatient to 4S. Back to [facility] on D/C
[2019-08-28] MEDS: Atorvastatin* 20 MG TAB PO SCH (22:03)
[2019-08-29 06:18] LABS: ABS Eosinophils 0.2 10^3/ul (0-0.6); ABS Lymphocytes 0.7 10^3/ul (1.0-4.8); ABS Monocytes 0.5 10^3/ul (0-0.8); ABS Neutrophils 3.7 10^3/ul (1.5-7.7); Eosinophil % 3.4 %; Hematocrit 32 % (35-47); Hemoglobin 10.4 g/dL (12.0-16.0); Lymphocyte % 13.7 %; Mean Corpuscular HGB Conc 32 g/dL (31-36); Mean Corpuscular Hemoglobin 27 pg (27-31); Mean Corpuscular Volume 84 fL (80-97); Mean Platelet Volume 8.5 fL (7.4-10.4); Nucleated Red Blood Cells % 0.6; Platelet Count 90 10^3/uL (150-450); Red Blood Count 3.84 10^6 /uL (3.70-4.87); Red Cell Distribution Width 25 % (10-15); White Blood Count 5.1 10^3/uL (3.5-10.8)
[2019-08-29 06:32] LABS: Calcium 8.8 mg/dL (8.6-10.3); EGFR African American 97.9 (>60); EGFR Non-African American 80.9 (>60); Magnesium 1.8 mg/dL (1.9-2.7); Potassium 3.8 mmol/L (3.5-5.0)
[2019-08-29] MEDS: Insulin LISPRO* 1 UNITS UNIT SUBCUT SCH ×4 (07:50→22:11)
[2019-08-29] MEDS: Insulin GLARGINE(*) 1 UNITS UNIT SUBCUT SCH (08:51)
[2019-08-29] MEDS: Multivitamins/Minerals TAB PO SCH (08:51)
[2019-08-29] MEDS: Spironolactone TAB* 25 MG PO SCH (08:51)
[2019-08-29] MEDS: Furosemide IV* 10 MG/ML 10 ML VIAL (100 MG) IV SCH ×2 (08:51→17:20)
[2019-08-29] MEDS: Cyanocobalamin TAB* 500 MCG PO SCH (08:52)
[2019-08-29] MEDS: Apixaban* 5 MG TAB PO SCH ×2 (08:52→22:06)
[2019-08-29] MEDS: Nystatin TOP POWDER* 15 GM BTL TOPICAL SCH ×2 (08:52→22:07)
[2019-08-29] MEDS: Famotidine TAB* 20 MG PO SCH (08:52)
[2019-08-29] MEDS: Metoprolol Succinate XL TAB* 50 MG PO SCH (08:52)
[2019-08-29] MEDS: Pregabalin 25 mg CAP (*) PO SCH ×3 (08:52→22:06)
[2019-08-29] MEDS: Iron Sucrose* 200 MG in NS 0.9% 100 ML* 100 ML IVPB SCH (08:53)
[2019-08-29] MEDS: Thiamine INJ* 250 MG in NS 0.9% 100 ML* 100 ML IV SCH (11:33)
[2019-08-29] MEDS ORDERED: Magnesium Sulfate 1 GM IV* 1 GM/100 ML BAG IV ONE (13:27)
--- NOTE | 2019-08-29 13:49 | PN ---
Subjective Date of Service: 08/29/19 Interval History: Patient is still occasionally SOB, and has occasional cough. Patient denies CP, SOB, F/C, N/V, abdominal pain, diarrhea, or other pain. Per nursing, patient has been having nosebleeds that have taken a little while to stop. Family History: Unchanged from Admission Social History: Unchanged from Admission Past Medical History: Unchanged from Admission Objective Active Medications: Acetaminophen (Tylenol Tab*) 650 mg PO Q4H PRN PRN Reason: MILD PAIN or TEMP > 100.4 Albuterol/Ipratropium (Duoneb (Albuterol 2.5 Mg/Ipratropium 0.5 Mg)) 1 neb INH Q4H PRN PRN Reason: SOB/WHEEZING Apixaban (Eliquis*) 5 mg PO BID [facility] Last Admin: 08/29/19 08:52 Dose: 5 mg Atorvastatin Calcium (Lipitor*) 20 mg PO BEDTIME [facility] Last Admin: 08/28/19 22:03 Dose: 20 mg Cyanocobalamin (Vitamin B12 Tab*) 1,000 mcg PO DAILY [facility] Last Admin: 08/29/19 08:52 Dose: 1,000 mcg Famotidine (Pepcid Tab*) 20 mg PO DAILY [facility] Last Admin: 08/29/19 08:52 Dose: 20 mg Furosemide (Lasix Iv*) 60 mg IV 0800,1700 [facility] Last Admin: 08/29/19 08:51 Dose: 60 mg Thiamine HCl 250 mg/ Sodium (Chloride) 102.5 mls @ 205 mls/hr IV Q24H [facility] Last Admin: 08/29/19 11:33 Dose: 205 mls/hr Iron Sucrose 200 mg/ Sodium (Chloride) 110 mls @ 440 mls/hr IVPB DAILY [facility] Stop: 09/01/19 09:14 Last Admin: 08/29/19 08:53 Dose: 440 mls/hr Magnesium Sulfate/Dextrose (Magnesium Sulfate 1 Gm Iv*) 1 gm in 100 mls @ 200 mls/hr IV ONCE ONE Stop: 08/29/19 13:56 Insulin Glargine (Lantus(*)) 20 units SUBCUT Q24H [facility] Insulin Human Lispro (Humalog*) 0 units SUBCUT ACHS [facility]; Protocol Last Admin: 08/29/19 12:16 Dose: 6 units Lactulose (Lactulose*) 30 ml PO TID [facility] Last Admin: 08/29/19 08:51 Dose: 30 ml Metoprolol Succinate (Toprol Xl Tab*) 50 mg PO DAILY [facility] Last Admin: 08/29/19 08:52 Dose: 50 mg Multivitamins/Minerals (Theragran/Minerals Tab*) 1 tab PO DAILY [facility] Last Admin: 08/29/19 08:51 Dose: 1 tab Nystatin (Nystatin Top Powder*) 1 applic TOPICAL BID [facility] Last Admin: 08/29/19 08:52 Dose: 1 applic Pregabalin (Lyrica 25 Mg Cap (*)) 25 mg PO TID [facility] Last Admin: 08/29/19 08:52 Dose: 25 mg Spironolactone (Aldactone Tab*) 25 mg PO DAILY [facility] Last Admin: 08/29/19 08:51 Dose: 25 mg Vital Signs - 8 hr 08/29/19 08/29/19 08/29/19 07:15 08:00 08:52 Temperature 98.0 F Pulse Rate 77 Respiratory 20 18 18 Rate Blood Pressure 115/63 (mmHg) O2 Sat by Pulse 96 Oximetry 08/29/19 08/29/19 10:52 11:15 Temperature 97.3 F Pulse Rate Respiratory 20 16 Rate Blood Pressure 119/63 (mmHg) O2 Sat by Pulse 94 Oximetry Oxygen Devices in Use Now: None Appearance: Patient is a 79yo female who appears stated age and is sitting in the bed in [facility]. Eyes: No Scleral Icterus, PERRLA Ears/Nose/Mouth/Throat: NL Teeth, Lips, Gums, Clear Oropharnyx, Mucous Membranes Moist Neck: NL Appearance and Movements; NL JVP, Trachea Midline Respiratory: Symmetrical Chest Expansion and Respiratory Effort, - - Rales in B/ L lower lobes. Cardiovascular: NL Sounds; No Murmurs; No JVD, RRR, - - 2+ B/L LE edema. Abdominal: NL Sounds; No Tenderness; No Distention, No Hepatosplenomegaly Lymphatic: No Cervical Adenopathy Extremities: No Edema, No Clubbing, Cyanosis Skin: No Rash or Ulcers, No Nodules or Sclerosis Neurological: Alert and Oriented x 3, NL Muscle Strength and Tone, - - Stable Neuropathy Result Diagrams: 08/29/19 06:06 08/29/19 06:06 Microbiology and Other Data: Microbiology 08/26/19 05:25 Urine Culture - Final Urine No Growth (<1,000 CFU/mL) 08/26/19 14:20 Stool Occult Blood (PEREZ) - Final Stool Assess/Plan/Problems-Billing Assessment: Patient is a 79yo female with a PMH for HFrEF due to HICM, DM II with diabetic neuropathy, LE Osteomyelitis, here with AMS and Hyperammonemia believed to be related to congestive hepatopathy. Improving on treatment with lactulose and diuresis. - Patient Problems (1) Hyperammonemia Current Visit: Yes Status: Acute Code(s): E72.20 - DISORDER OF UREA CYCLE METABOLISM, UNSPECIFIED SNOMED Code(s): 3376013 Comment: - With Encephalopathy, now resolved - Ammonia 146 on 08/24. Laculose TID at home - LDH, PT and bilirubin are high. Dr. Melo consulted, he does not believe this to be a result of MORTENSEN because her ALT's have consistently been low. He feels this is a result of right sided heart failure. - Will need aggressive diuresis to help treat her liver. - Continue lactulose TID. - Ammonia nearing normal range. (2) Acute on chronic systolic heart failure Current Visit: No Status: Acute Code(s): I50.23 - ACUTE ON CHRONIC SYSTOLIC (CONGESTIVE) HEART FAILURE SNOMED Code(s): 010812069 Comment: - Unsure as to what precepitated this - Receiving lasix 60mg IV BID and resume spironolactone - Keep bonilla through diuresis for I/O monitoring. - Continue metoprolol, Spironolactone. - Continue I/O, daily weights - Due to NICM, clean cardiac cath. With history of gastric bypass, will supplement thiamine initally daily and check a whole blood B1 level. - Supplement Iron IV due to DOMONIQUE and HFrEF - Consistently negative 2L daily - Persistently fluid overloaded. (3) COPD (chronic obstructive pulmonary disease) Current Visit: No Status: Acute Code(s): J44.9 - CHRONIC OBSTRUCTIVE PULMONARY DISEASE, UNSPECIFIED SNOMED Code(s): 33160944 Comment: - Is not on inhalers at home. Ordered duonebs while inpatient. - SOB and wheezing more likely due to CHF (4) Encephalopathy Current Visit: No Status: Acute Code(s): G93.40 - ENCEPHALOPATHY, UNSPECIFIED SNOMED Code(s): 25186470 Comment: - Possibly related to hyperammonemia. (5) JOSHUA (obstructive sleep apnea) Current Visit: No Status: Acute Code(s): G47.33 - OBSTRUCTIVE SLEEP APNEA ( ADULT) (PEDIATRIC) SNOMED Code(s): 53071160 Comment: - Non-compliant with CPAP - Possibly contributing to Right Sided Heart Failure and congestive Hepatopathy. (6) Afib Current Visit: No Status: Chronic Code(s): I48.91 - UNSPECIFIED ATRIAL FIBRILLATION SNOMED Code(s): 84762585 Comment: - Chronic, rate controlled on Metoprolol - Continue apixaban - Continue tele (7) Diabetes Current Visit: No Status: Chronic Code(s): E11.9 - TYPE 2 DIABETES MELLITUS WITHOUT COMPLICATIONS SNOMED Code(s): 90037136 Comment: - Hgb A1C 7.2% on 06/18/19 - Decrease Lantus to 20u daily. - Continue lispro ss with FS AC - Complicated by neuropathy and diabetic foot infections. (8) Hyperlipidemia Current Visit: No Status: Chronic Code(s): E78.5 - HYPERLIPIDEMIA, UNSPECIFIED SNOMED Code(s): 29393944 Comment: - Continue atorvastatin (9) Hypertension Current Visit: No Status: Chronic Code(s): I10 - ESSENTIAL (PRIMARY) HYPERTENSION SNOMED Code(s): 54854496 Comment: - SBP 90-100s - Continue metoprolol, Lasix - Spironolactone to augment diuresis (10) Restless leg syndrome Current Visit: No Status: Chronic Comment: - Continue to hold Pramiprexole and Pregabalin due to hypothetical concerns about HF exacerbation (11) Full code status Current Visit: No Status: Acute Code(s): Z78.9 - OTHER SPECIFIED HEALTH STATUS SNOMED Code(s): 654325652 (12) DVT prophylaxis Current Visit: No Status: Acute Code(s): EMP2083 - SNOMED Code(s): 455999859 Comment: -Continue apixaban. Status and Disposition: Condition: Stable. Disposition: Admit inpatient to 4S. Back to [facility] on D/C
[2019-08-29] MEDS: Atorvastatin* 20 MG TAB PO SCH (22:06)
[2019-08-30 05:09] LABS: BUN/Creatinine Ratio 24.7 (8-20); Calcium 8.8 mg/dL (8.6-10.3); EGFR African American 87.7 (>60); EGFR Non-African American 72.5 (>60); Magnesium 1.7 mg/dL (1.9-2.7); Potassium 3.7 mmol/L (3.5-5.0)
[2019-08-30 05:15] LABS: ABS Eosinophils 0.2 10^3/ul (0-0.6); ABS Lymphocytes 0.8 10^3/ul (1.0-4.8); ABS Monocytes 0.6 10^3/ul (0-0.8); ABS Neutrophils 3.7 10^3/ul (1.5-7.7); ABS Nucleated RBC 0.1 10^3/ul; Eosinophil % 3.3 %; Hematocrit 32 % (35-47); Hemoglobin 10.1 g/dL (12.0-16.0); Lymphocyte % 15.5 %; Mean Corpuscular HGB Conc 32 g/dL (31-36); Mean Corpuscular Hemoglobin 27 pg (27-31); Mean Corpuscular Volume 85 fL (80-97); Mean Platelet Volume 8.8 fL (7.4-10.4); Nucleated Red Blood Cells % 1.3; Platelet Count 89 10^3/uL (150-450); Red Blood Count 3.74 10^6 /uL (3.70-4.87); Red Cell Distribution Width 25 % (10-15); White Blood Count 5.3 10^3/uL (3.5-10.8)
[2019-08-30] MEDS: Insulin LISPRO* 1 UNITS UNIT SUBCUT SCH ×4 (08:28→21:09)
[2019-08-30] MEDS ORDERED: Magnesium Sulfate 2 GM IV* 2 GM/50 ML BAG IVPB ONE (08:57)
[2019-08-30] MEDS: Apixaban* 5 MG TAB PO SCH ×2 (09:09→21:09)
[2019-08-30] MEDS: Cyanocobalamin TAB* 500 MCG PO SCH (09:09)
[2019-08-30] MEDS: Famotidine TAB* 20 MG PO SCH (09:09)
[2019-08-30] MEDS: Multivitamins/Minerals TAB PO SCH (09:09)
[2019-08-30] MEDS: Metoprolol Succinate XL TAB* 50 MG PO SCH (09:09)
[2019-08-30] MEDS: Spironolactone TAB* 25 MG PO SCH (09:09)
[2019-08-30] MEDS: Pregabalin 25 mg CAP (*) PO SCH ×3 (09:10→21:09)
[2019-08-30] MEDS: Furosemide IV* 10 MG/ML 10 ML VIAL (100 MG) IV SCH ×2 (09:10→16:52)
[2019-08-30] MEDS: Iron Sucrose* 200 MG in NS 0.9% 100 ML* 100 ML IVPB SCH (09:12)
[2019-08-30] MEDS: Nystatin TOP POWDER* 15 GM BTL TOPICAL SCH ×2 (09:12→21:36)
[2019-08-30] MEDS: Thiamine TAB* 100 MG TAB PO SCH (09:22)
[2019-08-30] MEDS: Insulin GLARGINE(*) 1 UNITS UNIT SUBCUT SCH (09:26)
--- NOTE | 2019-08-30 10:16 | PN ---
Subjective Date of Service: 08/30/19 Interval History: Patient continues to feel better. Patient states her breathing is near normal. Patient also feels that the clarity of her thinking has improved greatly since she was admitted. Patient denies CP, SOB, F/C, N/V, abdominal pain, diarrhea, or other pain. Family History: Unchanged from Admission Social History: Unchanged from Admission Past Medical History: Unchanged from Admission Objective Active Medications: Acetaminophen (Tylenol Tab*) 650 mg PO Q4H PRN PRN Reason: MILD PAIN or TEMP > 100.4 Albuterol/Ipratropium (Duoneb (Albuterol 2.5 Mg/Ipratropium 0.5 Mg)) 1 neb INH Q4H PRN PRN Reason: SOB/WHEEZING Apixaban (Eliquis*) 5 mg PO BID [facility] Last Admin: 08/30/19 09:09 Dose: 5 mg Atorvastatin Calcium (Lipitor*) 20 mg PO BEDTIME [facility] Last Admin: 08/29/19 22:06 Dose: 20 mg Cyanocobalamin (Vitamin B12 Tab*) 1,000 mcg PO DAILY [facility] Last Admin: 08/30/19 09:09 Dose: 1,000 mcg Famotidine (Pepcid Tab*) 20 mg PO DAILY [facility] Last Admin: 08/30/19 09:09 Dose: 20 mg Furosemide (Lasix Iv*) 60 mg IV 0800,1700 [facility] Last Admin: 08/30/19 09:10 Dose: 60 mg Iron Sucrose 200 mg/ Sodium (Chloride) 110 mls @ 440 mls/hr IVPB DAILY [facility] Stop: 09/01/19 09:14 Last Admin: 08/30/19 09:12 Dose: 440 mls/hr Insulin Glargine (Lantus(*)) 20 units SUBCUT Q24H [facility] Last Admin: 08/30/19 09:26 Dose: 20 units Insulin Human Lispro (Humalog*) 0 units SUBCUT ACHS [facility]; Protocol Last Admin: 08/30/19 08:28 Dose: Not Given Lactulose (Lactulose*) 30 ml PO TID [facility] Last Admin: 08/30/19 09:08 Dose: 30 ml Metoprolol Succinate (Toprol Xl Tab*) 50 mg PO DAILY [facility] Last Admin: 08/30/19 09:09 Dose: 50 mg Multivitamins/Minerals (Theragran/Minerals Tab*) 1 tab PO DAILY [facility] Last Admin: 08/30/19 09:09 Dose: 1 tab Nystatin (Nystatin Top Powder*) 1 applic TOPICAL BID [facility] Last Admin: 08/30/19 09:12 Dose: 1 applic Pregabalin (Lyrica 25 Mg Cap (*)) 25 mg PO TID [facility] Last Admin: 08/30/19 09:10 Dose: 25 mg Spironolactone (Aldactone Tab*) 25 mg PO DAILY [facility] Last Admin: 08/30/19 09:09 Dose: 25 mg Thiamine HCl (Vitamin B-1 Tab*) 100 mg PO DAILY [facility] Last Admin: 08/30/19 09:22 Dose: 100 mg Vital Signs - 8 hr 08/30/19 08/30/19 08/30/19 03:14 07:15 09:10 Temperature 97.3 F 98.1 F Pulse Rate 60 77 Respiratory 18 20 16 Rate Blood Pressure 103/52 128/76 (mmHg) O2 Sat by Pulse 95 92 Oximetry Oxygen Devices in Use Now: None Appearance: Patient is a 79yo female who appears stated age and is sitting in the bed in [facility]. Eyes: No Scleral Icterus, PERRLA Ears/Nose/Mouth/Throat: NL Teeth, Lips, Gums, Clear Oropharnyx, Mucous Membranes Moist Neck: NL Appearance and Movements; NL JVP, Trachea Midline Respiratory: Symmetrical Chest Expansion and Respiratory Effort, - - Rales in B/ L Lower lobes, unchanged. Cardiovascular: NL Sounds; No Murmurs; No JVD, RRR, - - 1+ B/L LE edema. Abdominal: NL Sounds; No Tenderness; No Distention, No Hepatosplenomegaly Lymphatic: No Cervical Adenopathy Extremities: No Clubbing, Cyanosis Skin: No Nodules or Sclerosis, - - LE blisters covered. Neurological: Alert and Oriented x 3, NL Sensation, NL Muscle Strength and Tone , - - CN II-XII intact. Result Diagrams: 08/30/19 04:19 08/30/19 04:19 Microbiology and Other Data: Microbiology 08/26/19 05:25 Urine Culture - Final Urine No Growth (<1,000 CFU/mL) 08/26/19 14:20 Stool Occult Blood ([facility]ERE[facility]) - Final Stool Assess/Plan/Problems-Billing Assessment: Patient is a 79yo female with a PMH for HFrEF due to HICM, DM II with diabetic neuropathy, LE Osteomyelitis, here with AMS and Hyperammonemia believed to be related to congestive hepatopathy. Improving on treatment with lactulose and diuresis. - Patient Problems (1) Hyperammonemia Current Visit: Yes Status: Acute Code(s): E72.20 - DISORDER OF UREA CYCLE METABOLISM, UNSPECIFIED SNOMED Code(s): 2624782 Comment: - With Encephalopathy, now resolved - Ammonia 146 on 08/24. Laculose TID at home - LDH, PT and bilirubin are high. Dr. Melo consulted, he does not believe this to be a result of MORTENSEN because her ALT's have consistently been low. He feels this is a result of right sided heart failure. - Will need aggressive diuresis to help treat her liver. - Continue lactulose TID. - Ammonia nearing normal range, assess clincially. (2) Acute on chronic systolic heart failure Current Visit: No Status: Acute Code(s): I50.23 - ACUTE ON CHRONIC SYSTOLIC (CONGESTIVE) HEART FAILURE SNOMED Code(s): 659834348 Comment: - Unsure as to what precepitated this - Receiving lasix 60mg IV BID and resume spironolactone - Keep bonilla through diuresis for I/O monitoring. - Continue metoprolol, Spironolactone. - Continue I/O, daily weights - Due to NICM, clean cardiac cath. Thiamine Level normal. - Supplement Iron IV due to DOMONIQUE and HFrEF - Consistently negative 2L daily - Persistently fluid overloaded. (3) COPD (chronic obstructive pulmonary disease) Current Visit: No Status: Acute Code(s): J44.9 - CHRONIC OBSTRUCTIVE PULMONARY DISEASE, UNSPECIFIED SNOMED Code(s): 59655824 Comment: - Is not on inhalers at home. Ordered duonebs while inpatient. - SOB and wheezing more likely due to CHF (4) Encephalopathy Current Visit: No Status: Acute Code(s): G93.40 - ENCEPHALOPATHY, UNSPECIFIED SNOMED Code(s): 06115637 Comment: - Likely related to hyperammonemia. (5) JOSHUA (obstructive sleep apnea) Current Visit: No Status: Acute Code(s): G47.33 - OBSTRUCTIVE SLEEP APNEA ( ADULT) (PEDIATRIC) SNOMED Code(s): 82545416 Comment: - Non-compliant with CPAP - Possibly contributing to Right Sided Heart Failure and congestive Hepatopathy. (6) Afib Current Visit: No Status: Chronic Code(s): I48.91 - UNSPECIFIED ATRIAL FIBRILLATION SNOMED Code(s): 73051272 Comment: - Chronic, rate controlled on Metoprolol - Continue apixaban - Continue tele (7) Diabetes Current Visit: No Status: Chronic Code(s): E11.9 - TYPE 2 DIABETES MELLITUS WITHOUT COMPLICATIONS SNOMED Code(s): 15214842 Comment: - Hgb A1C 7.2% on 06/18/19 - Decrease Lantus to 20u daily. - Continue lispro ss with FS AC - Complicated by neuropathy and diabetic foot infections. (8) Hyperlipidemia Current Visit: No Status: Chronic Code(s): E78.5 - HYPERLIPIDEMIA, UNSPECIFIED SNOMED Code(s): 76974312 Comment: - Continue atorvastatin (9) Hypertension Current Visit: No Status: Chronic Code(s): I10 - ESSENTIAL (PRIMARY) HYPERTENSION SNOMED Code(s): 04399167 Comment: - Normotensive generally - Continue metoprolol, Lasix - Spironolactone to augment diuresis (10) Restless leg syndrome Current Visit: No Status: Chronic Comment: - Continue to hold Pramiprexole and Pregabalin due to hypothetical concerns about HF exacerbation - Patient seems to be doing well without them at this time, likely continue to hold at discharge. (11) Full code status Current Visit: No Status: Acute Code(s): Z78.9 - OTHER SPECIFIED HEALTH STATUS SNOMED Code(s): 139197505 (12) DVT prophylaxis Current Visit: No Status: Acute Code(s): NLY6146 - SNOMED Code(s): 926363866 Comment: -Continue apixaban. Status and Disposition: Condition: Stable. Disposition: Admit inpatient to 4S. Back to [facility] on D/C
[2019-08-30] MEDS: Atorvastatin* 20 MG TAB PO SCH (21:09)
[2019-08-31 05:59] LABS: ABS Eosinophils 0.2 10^3/ul (0-0.6); ABS Monocytes 0.5 10^3/ul (0-0.8); ABS Neutrophils 3.7 10^3/ul (1.5-7.7); ABS Nucleated RBC 0.1 10^3/ul; Eosinophil % 3.6 %; Hematocrit 32 % (35-47); Hemoglobin 10.3 g/dL (12.0-16.0); Lymphocyte % 18.9 %; Mean Corpuscular HGB Conc 32 g/dL (31-36); Mean Corpuscular Hemoglobin 27 pg (27-31); Mean Corpuscular Volume 84 fL (80-97); Mean Platelet Volume 8.5 fL (7.4-10.4); Nucleated Red Blood Cells % 0.8; Platelet Count 110 10^3/uL (150-450); Red Blood Count 3.77 10^6 /uL (3.70-4.87); Red Cell Distribution Width 25 % (10-15); White Blood Count 5.5 10^3/uL (3.5-10.8)
[2019-08-31 06:15] LABS: Calcium 8.9 mg/dL (8.6-10.3); EGFR African American 81.6 (>60); EGFR Non-African American 67.4 (>60); Magnesium 1.9 mg/dL (1.9-2.7); Potassium 3.7 mmol/L (3.5-5.0)
[2019-08-31] MEDS: Insulin LISPRO* 1 UNITS UNIT SUBCUT SCH ×4 (07:33→21:41)
[2019-08-31] MEDS: Furosemide IV* 10 MG/ML 10 ML VIAL (100 MG) IV SCH ×2 (07:34→17:26)
[2019-08-31] MEDS: Iron Sucrose* 200 MG in NS 0.9% 100 ML* 100 ML IVPB SCH (09:57)
[2019-08-31] MEDS: Insulin GLARGINE(*) 1 UNITS UNIT SUBCUT SCH (09:58)
[2019-08-31] MEDS: Multivitamins/Minerals TAB PO SCH (09:58)
[2019-08-31] MEDS: Spironolactone TAB* 25 MG PO SCH (09:58)
[2019-08-31] MEDS: Metoprolol Succinate XL TAB* 50 MG PO SCH (09:58)
[2019-08-31] MEDS: Thiamine TAB* 100 MG TAB PO SCH (09:58)
[2019-08-31] MEDS: Pregabalin 25 mg CAP (*) PO SCH ×3 (09:58→21:41)
[2019-08-31] MEDS: Cyanocobalamin TAB* 500 MCG PO SCH (09:58)
[2019-08-31] MEDS: Famotidine TAB* 20 MG PO SCH (09:58)
[2019-08-31] MEDS: Apixaban* 5 MG TAB PO SCH ×2 (09:58→21:41)
--- NOTE | 2019-08-31 10:14 | PN ---
Subjective Date of Service: 08/31/19 Interval History: patient reports that she is feeling better today. reports that her breathing is improved. Denies chest pain. Denies fever or chills. Denies abd pain n/v/ d. Family History: Unchanged from Admission Social History: Unchanged from Admission Past Medical History: Unchanged from Admission Objective Active Medications: Acetaminophen (Tylenol Tab*) 650 mg PO Q4H PRN PRN Reason: MILD PAIN or TEMP > 100.4 Albuterol/Ipratropium (Duoneb (Albuterol 2.5 Mg/Ipratropium 0.5 Mg)) 1 neb INH Q4H PRN PRN Reason: SOB/WHEEZING Apixaban (Eliquis*) 5 mg PO BID [facility] Last Admin: 08/31/19 09:58 Dose: 5 mg Atorvastatin Calcium (Lipitor*) 20 mg PO BEDTIME [facility] Last Admin: 08/30/19 21:09 Dose: 20 mg Cyanocobalamin (Vitamin B12 Tab*) 1,000 mcg PO DAILY [facility] Last Admin: 08/31/19 09:58 Dose: 1,000 mcg Famotidine (Pepcid Tab*) 20 mg PO DAILY [facility] Last Admin: 08/31/19 09:58 Dose: 20 mg Furosemide (Lasix Iv*) 60 mg IV 0800,1700 [facility] Last Admin: 08/31/19 07:34 Dose: 60 mg Iron Sucrose 200 mg/ Sodium (Chloride) 110 mls @ 440 mls/hr IVPB DAILY [facility] Stop: 09/01/19 09:14 Last Admin: 08/31/19 09:57 Dose: 440 mls/hr Insulin Glargine (Lantus(*)) 20 units SUBCUT Q24H [facility] Last Admin: 08/31/19 09:58 Dose: 20 units Insulin Human Lispro (Humalog*) 0 units SUBCUT ACHS [facility]; Protocol Last Admin: 08/31/19 07:33 Dose: Not Given Lactulose (Lactulose*) 30 ml PO TID [facility] Last Admin: 08/31/19 09:57 Dose: 30 ml Metoprolol Succinate (Toprol Xl Tab*) 50 mg PO DAILY [facility] Last Admin: 08/31/19 09:58 Dose: 50 mg Multivitamins/Minerals (Theragran/Minerals Tab*) 1 tab PO DAILY [facility] Last Admin: 08/31/19 09:58 Dose: 1 tab Nystatin (Nystatin Top Powder*) 1 applic TOPICAL BID [facility] Last Admin: 08/30/19 21:36 Dose: 1 applic Pregabalin (Lyrica 25 Mg Cap (*)) 25 mg PO TID [facility] Last Admin: 08/31/19 09:58 Dose: 25 mg Spironolactone (Aldactone Tab*) 25 mg PO DAILY [facility] Last Admin: 08/31/19 09:58 Dose: 25 mg Thiamine HCl (Vitamin B-1 Tab*) 100 mg PO DAILY [facility] Last Admin: 08/31/19 09:58 Dose: 100 mg Vital Signs - 8 hr 08/31/19 08/31/19 08/31/19 03:11 03:12 07:30 Temperature 98.4 F 97.2 F Pulse Rate 76 75 63 Respiratory 17 20 16 Rate Blood Pressure 108/54 102/70 (mmHg) O2 Sat by Pulse 87 92 96 Oximetry 08/31/19 08/31/19 07:39 09:58 Temperature Pulse Rate Respiratory 16 18 Rate Blood Pressure (mmHg) O2 Sat by Pulse Oximetry Oxygen Devices in Use Now: None Appearance: alert , oriented x 3, mild respiratory distress Eyes: No Scleral Icterus Ears/Nose/Mouth/Throat: Clear Oropharnyx, Mucous Membranes Moist Neck: NL Appearance and Movements; NL JVP, Trachea Midline Respiratory: Symmetrical Chest Expansion and Respiratory Effort, - - diminshed in the bases bilat Cardiovascular: No Edema Abdominal: NL Sounds; No Tenderness; No Distention Extremities: No Clubbing, Cyanosis, - - + 2-3 pitting luis to bilat lower ext. Skin: - - blistering noted to bilat lower legs, weeping, dressing intact, mild erthyema Neurological: Alert and Oriented x 3 Nutrition: Taking PO's Result Diagrams: 09/01/19 05:27 09/01/19 05:27 Microbiology and Other Data: Microbiology 08/26/19 05:25 Urine Culture - Final Urine No Growth (<1,000 CFU/mL) 08/26/19 14:20 Stool Occult Blood (PEREZ) - Final Stool Assess/Plan/Problems-Billing Assessment: Patient is a 79yo female with a PMH for HFrEF due to HICM, DM II with diabetic neuropathy, LE Osteomyelitis, here with AMS and Hyperammonemia believed to be related to congestive hepatopathy. Improving on treatment with lactulose and diuresis. - Patient Problems (1) Acute on chronic systolic heart failure Current Visit: No Status: Acute Code(s): I50.23 - ACUTE ON CHRONIC SYSTOLIC (CONGESTIVE) HEART FAILURE SNOMED Code(s): 433530213 Comment: - Unsure as to what precepitated this - continue lasix 60mg IV BID and resume spironolactone- will reassess fluid status in the AM and need to continue IV Lasix - likely will need for 1-2 more days - Keep bonilla through diuresis for I/O monitoring. - Continue metoprolol, Spironolactone. - Continue I/O, daily weights - Due to NICM, clean cardiac cath. Thiamine Level normal. - Supplement Iron IV due to DOMONIQUE and HFrEF - Consistently negative 1L daily for the past 2 days - Persistently fluid overloaded. (2) Hyperammonemia Current Visit: Yes Status: Acute Code(s): E72.20 - DISORDER OF UREA CYCLE METABOLISM, UNSPECIFIED SNOMED Code(s): 6791738 Comment: - With Encephalopathy, now resolved - Ammonia 146 on 08/24. Laculose TID at home - LDH, PT and bilirubin are high. Dr. Melo consulted, he does not believe this to be a result of M[place]ENSEN because her ALT's have consistently been low. He feels this is a result of right sided heart failure. - Will need aggressive diuresis to help treat her liver. - Continue lactulose TID. - Ammonia nearing normal range, assess clincially. (3) COPD (chronic obstructive pulmonary disease) Current Visit: No Status: Acute Code(s): J44.9 - CHRONIC OBSTRUCTIVE PULMONARY DISEASE, UNSPECIFIED SNOMED Code(s): 08153857 Comment: - Is not on inhalers at home. Ordered duonebs while inpatient. - SOB and wheezing more likely due to CHF- will continue with lasix for now (4) Encephalopathy Current Visit: No Status: Acute Code(s): G93.40 - ENCEPHALOPATHY, UNSPECIFIED SNOMED Code(s): 08721097 Comment: - Likely related to hyperammonemia. (5) JOSHUA (obstructive sleep apnea) Current Visit: No Status: Acute Code(s): G47.33 - OBSTRUCTIVE SLEEP APNEA ( ADULT) (PEDIATRIC) SNOMED Code(s): 71075103 Comment: - Non-compliant with CPAP - Possibly contributing to Right Sided Heart Failure and congestive Hepatopathy. (6) Afib Current Visit: No Status: Chronic Code(s): I48.91 - UNSPECIFIED ATRIAL FIBRILLATION SNOMED Code(s): 72966785 Comment: - Chronic, rate controlled on Metoprolol - Continue apixaban - Continue tele (7) Diabetes Current Visit: No Status: Chronic Code(s): E11.9 - TYPE 2 DIABETES MELLITUS WITHOUT COMPLICATIONS SNOMED Code(s): 61851267 Comment: - Hgb A1C 7.2% on 06/18/19 - Decrease Lantus to 10u daily today- but did recieve 20 units this AM, blood glucose was 65 this AM. - Continue lispro ss with FS AC - Complicated by neuropathy and diabetic foot infections. (8) Diabetic neuropathy Current Visit: No Status: Chronic Code(s): E11.40 - TYPE 2 DIABETES MELLITUS WITH DIABETIC NEUROPATHY, UNSP SNOMED Code(s): 790307772 Comment: Continue lyrica. (9) Hyperlipidemia Current Visit: No Status: Chronic Code(s): E78.5 - HYPERLIPIDEMIA, UNSPECIFIED SNOMED Code(s): 98275706 Comment: - Continue atorvastatin (10) Hypertension Current Visit: No Status: Chronic Code(s): I10 - ESSENTIAL (PRIMARY) HYPERTENSION SNOMED Code(s): 01482365 Comment: - Normotensive generally - Continue metoprolol, Lasix - Spironolactone to augment diuresis (11) Restless leg syndrome Current Visit: No Status: Chronic Comment: - Continue to hold Pramiprexole and Pregabalin due to hypothetical concerns about HF exacerbation - Patient seems to be doing well without them at this time, likely continue to hold at discharge. (12) DVT prophylaxis Current Visit: No Status: Acute Code(s): GKU3200 - SNOMED Code(s): 000518215 Comment: -Continue apixaban. (13) Full code status Current Visit: No Status: Acute Code(s): Z78.9 - OTHER SPECIFIED HEALTH STATUS SNOMED Code(s): 157252473 Status and Disposition: Condition: Stable. Disposition: Admit inpatient to . Back to [facility] on D/C
[2019-08-31] MEDS: Nystatin TOP POWDER* 15 GM BTL TOPICAL SCH ×2 (14:07→21:41)
[2019-08-31] MEDS ORDERED: Insulin GLARGINE(*) 1 UNITS UNIT SUBCUT SCH (14:59)
[2019-08-31] MEDS: Atorvastatin* 20 MG TAB PO SCH (21:41)
[2019-09-01 05:35] LABS: Mean Platelet Volume 7.4 fL (7.4-10.4); Platelet Count 124 10^3/uL (150-450)
[2019-09-01 05:56] LABS: BUN/Creatinine Ratio 22.1 (8-20); EGFR African American 87.7 (>60); EGFR Non-African American 72.5 (>60); Potassium 3.6 mmol/L (3.5-5.0)
[2019-09-01] MEDS: Insulin LISPRO* 1 UNITS UNIT SUBCUT SCH ×4 (08:18→21:30)
[2019-09-01] MEDS ORDERED: NS 0.9% 100 ML* 100 ML ONE (09:11)
[2019-09-01] MEDS: Famotidine TAB* 20 MG PO SCH (09:19)
[2019-09-01] MEDS: Cyanocobalamin TAB* 500 MCG PO SCH (09:19)
[2019-09-01] MEDS: Spironolactone TAB* 25 MG PO SCH (09:19)
[2019-09-01] MEDS: Metoprolol Succinate XL TAB* 50 MG PO SCH (09:19)
[2019-09-01] MEDS: Thiamine TAB* 100 MG TAB PO SCH (09:19)
[2019-09-01] MEDS: Insulin GLARGINE(*) 1 UNITS UNIT SUBCUT SCH (09:20)
[2019-09-01] MEDS: Iron Sucrose* 200 MG in NS 0.9% 100 ML* 100 ML IVPB SCH (09:20)
[2019-09-01] MEDS: Pregabalin 25 mg CAP (*) PO SCH ×3 (09:20→21:31)
[2019-09-01] MEDS: Apixaban* 5 MG TAB PO SCH ×2 (09:20→21:31)
[2019-09-01] MEDS: Multivitamins/Minerals TAB PO SCH (09:21)
[2019-09-01] MEDS: Nystatin TOP POWDER* 15 GM BTL TOPICAL SCH ×2 (09:21→22:43)
[2019-09-01] MEDS: Furosemide IV* 10 MG/ML 10 ML VIAL (100 MG) IV SCH ×2 (10:34→17:56)
--- NOTE | 2019-09-01 16:09 | PN ---
Subjective Date of Service: 09/01/19 Interval History: Patient reports that she is feeling well today. Denies chest pain or shortness of breath. Denies fever or chills. Denies abd pain n/v/d. Patient was updated on current visitation policy and why no visitors were allowed in the building at this time. appears mildly short of breath though she denies. Is mouth breathing, lower ext swelling is improving Patient was a ely lift to the chair yesterday. Spoke to family and updated them on patient's progress and likely need for short term rehab at discharge. Family History: Unchanged from Admission Social History: Unchanged from Admission Past Medical History: Unchanged from Admission Objective Active Medications: Acetaminophen (Tylenol Tab*) 650 mg PO Q4H PRN PRN Reason: MILD PAIN or TEMP > 100.4 Albuterol/Ipratropium (Duoneb (Albuterol 2.5 Mg/Ipratropium 0.5 Mg)) 1 neb INH Q4H PRN PRN Reason: SOB/WHEEZING Apixaban (Eliquis*) 5 mg PO BID [facility] Last Admin: 09/01/19 09:20 Dose: 5 mg Atorvastatin Calcium (Lipitor*) 20 mg PO BEDTIME [facility] Last Admin: 08/31/19 21:41 Dose: 20 mg Cyanocobalamin (Vitamin B12 Tab*) 1,000 mcg PO DAILY [facility] Last Admin: 09/01/19 09:19 Dose: 1,000 mcg Famotidine (Pepcid Tab*) 20 mg PO DAILY [facility] Last Admin: 09/01/19 09:19 Dose: 20 mg Furosemide (Lasix Iv*) 60 mg IV 0800,1700 [facility] Last Admin: 09/01/19 10:34 Dose: 60 mg Insulin Glargine (Lantus(*)) 10 units SUBCUT Q24H [facility] Last Admin: 09/01/19 09:20 Dose: 10 units Insulin Human Lispro (Humalog*) 0 units SUBCUT [facility]; Protocol Last Admin: 09/01/19 13:05 Dose: 3 units Lactulose (Lactulose*) 30 ml PO TID [facility] Last Admin: 09/01/19 13:04 Dose: 30 ml Metoprolol Succinate (Toprol Xl Tab*) 50 mg PO DAILY [facility] Last Admin: 09/01/19 09:19 Dose: 50 mg Multivitamins/Minerals (Theragran/Minerals Tab*) 1 tab PO DAILY [facility] Last Admin: 09/01/19 09:21 Dose: 1 tab Nystatin (Nystatin Top Powder*) 1 applic TOPICAL BID [facility] Last Admin: 09/01/19 09:21 Dose: 1 applic Pregabalin (Lyrica 25 Mg Cap (*)) 25 mg PO TID [facility] Last Admin: 09/01/19 13:05 Dose: 25 mg Spironolactone (Aldactone Tab*) 25 mg PO DAILY [facility] Last Admin: 09/01/19 09:19 Dose: 25 mg Thiamine HCl (Vitamin B-1 Tab*) 100 mg PO DAILY [facility] Last Admin: 09/01/19 09:19 Dose: 100 mg Vital Signs - 8 hr 09/01/19 09/01/19 09/01/19 09:20 11:15 12:05 Temperature 97.1 F Pulse Rate 64 Respiratory 16 16 16 Rate Blood Pressure 114/66 (mmHg) O2 Sat by Pulse 92 Oximetry 09/01/19 13:05 Temperature Pulse Rate Respiratory 16 Rate Blood Pressure (mmHg) O2 Sat by Pulse Oximetry Oxygen Devices in Use Now: None Appearance: appears comfortable, no acute distress Eyes: No Scleral Icterus Ears/Nose/Mouth/Throat: Clear Oropharnyx, Mucous Membranes Moist Neck: NL Appearance and Movements; NL JVP, Trachea Midline Respiratory: Symmetrical Chest Expansion and Respiratory Effort, - - diminished breath sounds bilat Cardiovascular: NL Sounds; No Murmurs; No JVD Extremities: No Clubbing, Cyanosis, - - blistering and brown discoloration noted to bilat lower legs. Skin: No Rash or Ulcers Neurological: Alert and Oriented x 3 Nutrition: Taking PO's Result Diagrams: 09/01/19 05:27 09/01/19 05:27 Microbiology and Other Data: Microbiology 08/26/19 05:25 Urine Culture - Final Urine No Growth (<1,000 CFU/mL) 08/26/19 14:20 Stool Occult Blood (PEREZ) - Final Stool Assess/Plan/Problems-Billing Assessment: Patient is a 79yo female with a PMH for HFrEF due to HICM, DM II with diabetic neuropathy, LE Osteomyelitis, here with AMS and Hyperammonemia believed to be related to congestive hepatopathy. Improving on treatment with lactulose and diuresis. - Patient Problems (1) Acute on chronic systolic heart failure Current Visit: No Status: Acute Code(s): I50.23 - ACUTE ON CHRONIC SYSTOLIC (CONGESTIVE) HEART FAILURE SNOMED Code(s): 632298736 Comment: maintaining O2 satursations on RA - Unsure as to what precepitated this - continue lasix 60mg IV BID and resume spironolactone- will reassess fluid status in the AM and need to continue IV Lasix - likely will need for 1 more day - Keep bonilla through diuresis for I/O monitoring. - Continue metoprolol, Spironolactone. - Continue I/O, daily weights - Due to NICM, clean cardiac cath. Thiamine Level normal. - Supplement Iron IV due to DOMONIQUE and HFrEF - UOP remains good, I/O's with negative balance (2) Hyperammonemia Current Visit: Yes Status: Acute Code(s): E72.20 - DISORDER OF UREA CYCLE METABOLISM, UNSPECIFIED SNOMED Code(s): 0125499 Comment: - With Encephalopathy, now resolved - Ammonia 146 on 08/24. Laculose TID at home - LDH, PT and bilirubin are high. Dr. Melo consulted, he does not believe this to be a result of MORTENSEN because her ALT's have consistently been low. He feels this is a result of right sided heart failure. - Will need aggressive diuresis to help treat her liver. - Continue lactulose TID. - Ammonia nearing normal range, assess clincially. (3) COPD (chronic obstructive pulmonary disease) Current Visit: No Status: Acute Code(s): J44.9 - CHRONIC OBSTRUCTIVE PULMONARY DISEASE, UNSPECIFIED SNOMED Code(s): 25774737 Comment: - Is not on inhalers at home. Ordered duonebs while inpatient. - SOB and wheezing more likely due to CHF- will continue with lasix for now (4) Encephalopathy Current Visit: No Status: Acute Code(s): G93.40 - ENCEPHALOPATHY, UNSPECIFIED SNOMED Code(s): 06860972 Comment: - Likely related to hyperammonemia. (5) JOSHUA (obstructive sleep apnea) Current Visit: No Status: Acute Code(s): G47.33 - OBSTRUCTIVE SLEEP APNEA ( ADULT) (PEDIATRIC) SNOMED Code(s): 07425168 Comment: - Non-compliant with CPAP - Possibly contributing to Right Sided Heart Failure and congestive Hepatopathy. (6) Afib Current Visit: No Status: Chronic Code(s): I48.91 - UNSPECIFIED ATRIAL FIBRILLATION SNOMED Code(s): 42932533 Comment: - Chronic, rate controlled on Metoprolol - Continue apixaban - Continue tele (7) Diabetes Current Visit: No Status: Chronic Code(s): E11.9 - TYPE 2 DIABETES MELLITUS WITHOUT COMPLICATIONS SNOMED Code(s): 92266523 Comment: - Hgb A1C 7.2% on 06/18/19 - Decrease Lantus to 10u daily today- but did recieve 20 units this AM, blood glucose was 65 this AM. - Continue lispro ss with FS AC - Complicated by neuropathy and diabetic foot infections. (8) Diabetic neuropathy Current Visit: No Status: Chronic Code(s): E11.40 - TYPE 2 DIABETES MELLITUS WITH DIABETIC NEUROPATHY, UNSP SNOMED Code(s): 057184856 Comment: Continue lyrica. (9) Hyperlipidemia Current Visit: No Status: Chronic Code(s): E78.5 - HYPERLIPIDEMIA, UNSPECIFIED SNOMED Code(s): 87310126 Comment: - Continue atorvastatin (10) Hypertension Current Visit: No Status: Chronic Code(s): I10 - ESSENTIAL (PRIMARY) HYPERTENSION SNOMED Code(s): 64856872 Comment: - Normotensive generally - Continue metoprolol, Lasix - Spironolactone to augment diuresis (11) Restless leg syndrome Current Visit: No Status: Chronic Comment: - Continue to hold Pramiprexole and Pregabalin due to hypothetical concerns about HF exacerbation - Patient seems to be doing well without them at this time, likely continue to hold at discharge. (12) DVT prophylaxis Current Visit: No Status: Acute Code(s): KOG7503 - SNOMED Code(s): 097971951 Comment: -Continue apixaban. (13) Full code status Current Visit: No Status: Acute Code(s): Z78.9 - OTHER SPECIFIED HEALTH STATUS SNOMED Code(s): 324584966 Status and Disposition: Condition: Stable. Disposition: Admit inpatient to . Back to [facility] on D/C
[2019-09-01] MEDS ORDERED: Potassium Chlor TAB* 20 MEQ TAB.ER PO ONE (20:13)
[2019-09-01 20:42] LABS: Magnesium 1.9 mg/dL (1.9-2.7)
[2019-09-01] MEDS: Atorvastatin* 20 MG TAB PO SCH (21:31)
[2019-09-02 05:45] LABS: Calcium 8.8 mg/dL (8.6-10.3); Magnesium 1.8 mg/dL (1.9-2.7)
[2019-09-02 05:51] LABS: BUN/Creatinine Ratio 21.3 (8-20); EGFR African American 83.9 (>60); EGFR Non-African American 69.4 (>60)
[2019-09-02] MEDS: Insulin LISPRO* 1 UNITS UNIT SUBCUT SCH ×4 (08:47→23:53)
[2019-09-02] MEDS: Thiamine TAB* 100 MG TAB PO SCH (09:16)
[2019-09-02] MEDS: Apixaban* 5 MG TAB PO SCH ×2 (09:16→23:52)
[2019-09-02] MEDS: Famotidine TAB* 20 MG PO SCH (09:16)
[2019-09-02] MEDS: Metoprolol Succinate XL TAB* 50 MG PO SCH (09:16)
[2019-09-02] MEDS: Cyanocobalamin TAB* 500 MCG PO SCH (09:16)
[2019-09-02] MEDS: Multivitamins/Minerals TAB PO SCH (09:17)
[2019-09-02] MEDS: Spironolactone TAB* 25 MG PO SCH (09:17)
[2019-09-02] MEDS: Insulin GLARGINE(*) 1 UNITS UNIT SUBCUT SCH (09:17)
[2019-09-02] MEDS: Pregabalin 25 mg CAP (*) PO SCH ×3 (09:17→23:55)
[2019-09-02] MEDS: Furosemide IV* 10 MG/ML 10 ML VIAL (100 MG) IV SCH ×2 (09:17→16:58)
[2019-09-02] MEDS: Nystatin TOP POWDER* 15 GM BTL TOPICAL SCH ×2 (09:18→23:54)
[2019-09-02] MEDS ORDERED: Magnesium Sulfate 1 GM IV* 1 GM/100 ML BAG IV ONE (09:44)
--- NOTE | 2019-09-02 13:35 | PN ---
Subjective Date of Service: 09/02/19 Interval History: Patient stated that she felt ok. Discussed her generalized deconditioning and weakness, requiring extensive help. She is very much onboard for going to a subacute rehab. Still requiring supplemental O2 at 2L. Encouraged her to perform leg and arm exercises while in bed. Denied lightheadedness, dizziness, chest pain, palpitations, shortness of breath, abdominal pain, nausea, vomiting , issues moving bowel or bladder. Family History: Unchanged from Admission Social History: Unchanged from Admission Past Medical History: Unchanged from Admission Objective Active Medications: Acetaminophen (Tylenol Tab*) 650 mg PO Q4H PRN PRN Reason: MILD PAIN or TEMP > 100.4 Albuterol/Ipratropium (Duoneb (Albuterol 2.5 Mg/Ipratropium 0.5 Mg)) 1 neb INH Q4H PRN PRN Reason: SOB/WHEEZING Apixaban (Eliquis*) 5 mg PO BID [facility] Last Admin: 09/02/19 09:16 Dose: 5 mg Atorvastatin Calcium (Lipitor*) 20 mg PO BEDTIME [facility] Last Admin: 09/01/19 21:31 Dose: 20 mg Cyanocobalamin (Vitamin B12 Tab*) 1,000 mcg PO DAILY [facility] Last Admin: 09/02/19 09:16 Dose: 1,000 mcg Famotidine (Pepcid Tab*) 20 mg PO DAILY [facility] Last Admin: 09/02/19 09:16 Dose: 20 mg Furosemide (Lasix Iv*) 60 mg IV 0800,1700 [facility] Last Admin: 09/02/19 09:17 Dose: 60 mg Insulin Glargine (Lantus(*)) 10 units SUBCUT Q24H [facility] Last Admin: 09/02/19 09:17 Dose: 10 units Insulin Human Lispro (Humalog*) 0 units SUBCUT [facility]S [facility]; Protocol Last Admin: 09/02/19 12:37 Dose: Not Given Lactulose (Lactulose*) 30 ml PO TID [facility] Last Admin: 09/02/19 09:18 Dose: 30 ml Metoprolol Succinate (Toprol Xl Tab*) 50 mg PO DAILY [facility] Last Admin: 09/02/19 09:16 Dose: 50 mg Multivitamins/Minerals (Theragran/Minerals Tab*) 1 tab PO DAILY [facility] Last Admin: 09/02/19 09:17 Dose: 1 tab Nystatin (Nystatin Top Powder*) 1 applic TOPICAL BID [facility] Last Admin: 09/02/19 09:18 Dose: 1 applic Pregabalin (Lyrica 25 Mg Cap (*)) 25 mg PO TID [facility] Last Admin: 09/02/19 09:17 Dose: 25 mg Spironolactone (Aldactone Tab*) 25 mg PO DAILY [facility] Last Admin: 09/02/19 09:17 Dose: 25 mg Thiamine HCl (Vitamin B-1 Tab*) 100 mg PO DAILY [facility] Last Admin: 09/02/19 09:16 Dose: 100 mg Vital Signs - 8 hr 09/02/19 09/02/19 09/02/19 07:15 08:00 09:17 Temperature 97.6 F Pulse Rate 75 Respiratory 20 18 14 Rate Blood Pressure 110/60 (mmHg) O2 Sat by Pulse 98 Oximetry 09/02/19 11:15 Temperature 97.6 F Pulse Rate 65 Respiratory 18 Rate Blood Pressure 111/69 (mmHg) O2 Sat by Pulse 98 Oximetry Oxygen Devices in Use Now: Nasal Cannula - 2L Appearance: This is a well developed older woman seen sitting up in bed, no acute distress noted. Eyes: No Scleral Icterus, PERRLA Ears/Nose/Mouth/Throat: NL Teeth, Lips, Gums, Clear Oropharnyx, Mucous Membranes Moist Neck: NL Appearance and Movements; NL JVP, Trachea Midline Respiratory: Symmetrical Chest Expansion and Respiratory Effort, Clear to Auscultation Cardiovascular: NL Sounds; No Murmurs; No JVD, - - +2 pitting bilateral lower extremity edema. Heart rate irregular. Abdominal: NL Sounds; No Tenderness; No Distention Lymphatic: No Cervical Adenopathy Extremities: No Edema, No Clubbing, Cyanosis Skin: No Rash or Ulcers, No Nodules or Sclerosis, - - Bilateral lower extremities discolored. Lines/Tubes/Other Access: Clean, Dry and Intact Peripheral IV Result Diagrams: 09/01/19 05:27 09/02/19 05:15 Microbiology and Other Data: Microbiology 08/26/19 05:25 Urine Culture - Final Urine No Growth (<1,000 CFU/mL) 08/26/19 14:20 Stool Occult Blood (PEREZ) - Final Stool Assess/Plan/Problems-Billing Assessment: Patient is a 79yo female with a PMH for HFrEF due to HICM, DM II with diabetic neuropathy, LE Osteomyelitis, here with AMS and Hyperammonemia believed to be related to congestive hepatopathy. Improving on treatment with lactulose and diuresis. - Patient Problems (1) Hyperammonemia Current Visit: Yes Status: Acute Code(s): E72.20 - DISORDER OF UREA CYCLE METABOLISM, UNSPECIFIED SNOMED Code(s): 3470230 Comment: - With Encephalopathy, now resolved - Ammonia 146 on 08/24. Will recheck levels today to assess need for further lactulose. Otherwise continue lactulose TID. - LDH, PT and bilirubin are high. Dr. Melo consulted, he does not believe this to be a result of MORTENSEN because her ALT's have consistently been low. He feels this is a result of right sided heart failure. - Will need aggressive diuresis to help treat her liver. (2) Acute on chronic systolic heart failure Current Visit: No Status: Acute Code(s): I50.23 - ACUTE ON CHRONIC SYSTOLIC (CONGESTIVE) HEART FAILURE SNOMED Code(s): 592261975 Comment: - Fluctuating O2 supplementation needs. Currently on 2L oxygen via nasal cannula. - Unsure as to what precepitated this - Continue lasix 60mg IV BID and resume spironolactone. - Keep bonilla through diuresis for I/O monitoring. - Continue metoprolol, Spironolactone. - Continue I/O, daily weights - Due to NICM, clean cardiac cath. Thiamine Level normal. - Iron supplementation IV completed. - UOP remains good, I/O's with negative balance - Repleted magnesium as level was slightly low (1.8), secondary to diuresis. (3) Afib Current Visit: No Status: Chronic Code(s): I48.91 - UNSPECIFIED ATRIAL FIBRILLATION SNOMED Code(s): 15052864 Comment: - Chronic, rate controlled on Metoprolol - Continue apixaban - Continue tele (4) COPD (chronic obstructive pulmonary disease) Current Visit: No Status: Acute Code(s): J44.9 - CHRONIC OBSTRUCTIVE PULMONARY DISEASE, UNSPECIFIED SNOMED Code(s): 84258227 Comment: - Is not on inhalers at home. Ordered duonebs while inpatient. - SOB and wheezing more likely due to CHF- will continue with lasix for now (5) Diabetes Current Visit: No Status: Chronic Code(s): E11.9 - TYPE 2 DIABETES MELLITUS WITHOUT COMPLICATIONS SNOMED Code(s): 55621127 Comment: - Hgb A1C 7.2% on 06/18/19 - Decrease Lantus to 10u daily today- but did recieve 20 units this AM, blood glucose was 65 this AM. - Continue lispro ss with FS AC - Complicated by neuropathy and diabetic foot infections. (6) Hyperlipidemia Current Visit: No Status: Chronic Code(s): E78.5 - HYPERLIPIDEMIA, UNSPECIFIED SNOMED Code(s): 27266577 Comment: - Continue atorvastatin (7) Hypertension Current Visit: No Status: Chronic Code(s): I10 - ESSENTIAL (PRIMARY) HYPERTENSION SNOMED Code(s): 25710167 Comment: - SBP between 100-110's. - Continue metoprolol, furosemide and spironolactone. (8) Restless leg syndrome Current Visit: No Status: Chronic Comment: - Continue pregabalin. - Pramiprexole held due to hypothetical concerns about HF exacerbation - Patient seems to be doing well without pramipraxole at this time, likely continue to hold at discharge. (9) GERD (gastroesophageal reflux disease) Current Visit: Yes Status: Acute Code(s): K21.9 - GASTRO-ESOPHAGEAL REFLUX DISEASE WITHOUT ESOPHAGITIS SNOMED Code(s): 499180673 Comment: - Continue famotidine. (10) JOSHUA (obstructive sleep apnea) Current Visit: No Status: Acute Code(s): G47.33 - OBSTRUCTIVE SLEEP APNEA ( ADULT) (PEDIATRIC) SNOMED Code(s): 75986136 Comment: - Non-compliant with CPAP - Possibly contributing to Right Sided Heart Failure and congestive Hepatopathy. (11) DVT prophylaxis Current Visit: No Status: Acute Code(s): JCY9788 - SNOMED Code(s): 962615907 Comment: -Continue apixaban. (12) Full code status Current Visit: No Status: Acute Code(s): Z78.9 - OTHER SPECIFIED HEALTH STATUS SNOMED Code(s): 509543874 Status and Disposition: Condition: Stable. Disposition: Admit inpatient to [facility]. Back to [facility] on D/C Attending: Larry Ortiz
[2019-09-02] MEDS ORDERED: RiFAXimin* 550 MG TAB PO SCH (21:00)
[2019-09-02] MEDS: Atorvastatin* 20 MG TAB PO SCH (23:53)
[2019-09-03] MEDS ORDERED: Haloperidol INJ IV/IM* 5 MG/ML AMP IM ONE (03:41)
--- NOTE | 2019-09-03 03:42 | PN ---
Hospitalist Progress Note Date of Service: 09/03/19 HOSPITALIST ADDENDUM Called by RN because patient is agitated and trying to get out of bed. Mrs Kaufman is a 79yo F with PMH of HFrEF due to HICM, DM II with diabetic neuropathy, LE Osteomyelitis, here with AMS and Hyperammonemia believed to be related to congestive hepatopathy in the setting of RV failure and JOSHUA non compliant with CPAP. As per reports, patient was clinically improving, but over the last 12h she's been noted to be paranoid, refusing medications, telling staff to get out of her room, having visual hallucinations. Of note, she now requires a Ananth lift for transfers, and her bed alarm was going off because she was trying to get up from bed. On arrival, patient is a morbid obese elderly female sitting up on the edge of the bed, in NAD, very upset a RN and an aide are in her room. When I went in she told me to get out and started to become agitated again. A/P: Acute delirium / ?recurrence of hepatic encephalopathy - Patient has not taken her last 2 doses of lactulose. Ammonia was 92 yesterday. - Will give Haldol 5mg IM to help control her agitation, as it is a risk for her own safety. RN has tried redirectioning and supportive measures without success. - When patient is calmer, may attempt to collect blood tests. - If ammonia level is higher, may need NGT for lactulose/rifaximin vs lactulose enema.
[2019-09-03] MEDS: Insulin LISPRO* 1 UNITS UNIT SUBCUT SCH ×4 (07:56→21:04)
[2019-09-03] MEDS: Furosemide IV* 10 MG/ML 10 ML VIAL (100 MG) IV SCH ×2 (08:54→17:32)
[2019-09-03] MEDS: Insulin GLARGINE(*) 1 UNITS UNIT SUBCUT SCH (10:56)
[2019-09-03] MEDS: Multivitamins/Minerals TAB PO SCH (11:18)
[2019-09-03] MEDS: Famotidine TAB* 20 MG PO SCH (11:18)
[2019-09-03] MEDS: Pregabalin 25 mg CAP (*) PO SCH ×3 (11:18→20:44)
[2019-09-03] MEDS: Cyanocobalamin TAB* 500 MCG PO SCH (11:18)
[2019-09-03] MEDS: Apixaban* 5 MG TAB PO SCH ×2 (11:18→20:43)
[2019-09-03] MEDS: Thiamine TAB* 100 MG TAB PO SCH (11:19)
[2019-09-03] MEDS: Spironolactone TAB* 25 MG PO SCH (11:19)
[2019-09-03] MEDS: RiFAXimin* 550 MG TAB PO SCH ×2 (11:19→20:44)
[2019-09-03 11:50] LABS: Urine Appearance Cloudy; Urine Bilirubin Negative (Negative); Urine Blood 1+ (Negative); Urine Color Yellow; Urine Glucose Negative (Negative); Urine Ketones Negative (Negative); Urine Nitrite Negative (Negative); Urine Protein Negative (Negative); Urine Specific Gravity 1.005 (1.010-1.030); Urine Urobilinogen Negative (Negative)
[2019-09-03] MEDS: Metoprolol Succinate XL TAB* 50 MG PO SCH (11:50)
[2019-09-03 11:56] LABS: Urine Bacteria 1+ (Absent); Urine Red Blood Cell Trace(0-2/hpf) (Absent); Urine White Blood Cell Trace(0-5/hpf) (Absent)
[2019-09-03 13:21] LABS: ABS Eosinophils 0.1 10^3/ul (0-0.6); ABS Monocytes 0.5 10^3/ul (0-0.8); ABS Neutrophils 3.5 10^3/ul (1.5-7.7); Eosinophil % 2.2 %; Hematocrit 32 % (35-47); Hemoglobin 10.4 g/dL (12.0-16.0); Lymphocyte % 19.2 %; Mean Corpuscular HGB Conc 32 g/dL (31-36); Mean Corpuscular Hemoglobin 28 pg (27-31); Mean Corpuscular Volume 86 fL (80-97); Mean Platelet Volume 7.6 fL (7.4-10.4); Nucleated Red Blood Cells % 0.2; Platelet Count 116 10^3/uL (150-450); Red Blood Count 3.77 10^6 /uL (3.70-4.87); Red Cell Distribution Width 25 % (10-15); White Blood Count 5.2 10^3/uL (3.5-10.8)
[2019-09-03 13:35] LABS: Albumin 2.8 g/dL (3.2-5.2); Albumin/Globulin Ratio 0.8 (1-3); EGFR African American 78.3 (>60); EGFR Non-African American 64.7 (>60); Globulin 3.6 g/dL (2-4); Potassium 3.9 mmol/L (3.5-5.0); Total Bilirubin 2.3 mg/dL (0.2-1.0); Total Protein 6.4 g/dL (6.4-8.9)
--- NOTE | 2019-09-03 14:19 | PN ---
Subjective Date of Service: 09/03/19 Interval History: Disorientation persisted through the night and had become combative in the overnight. After receiving haldol, she became more calm and was able to fall asleep. This morning upon assessment, she appeared to have signs of central cyanosis, was found to be 83% on room air. Placed on 2L oxygen via nasal cannula and repositioned higher in the bed. Her O2 quickly returned to the high 90's. She awakened though had a flat affect. Would not make eye contact. Stated that she wanted to be left alone and was "tired of all of this". Continued to decline medication, labs, and interventions from staff. Family History: Unchanged from Admission Social History: Unchanged from Admission Past Medical History: Unchanged from Admission Objective Active Medications: Acetaminophen (Tylenol Tab*) 650 mg PO Q4H PRN PRN Reason: MILD PAIN or TEMP > 100.4 Albuterol/Ipratropium (Duoneb (Albuterol 2.5 Mg/Ipratropium 0.5 Mg)) 1 neb INH Q4H PRN PRN Reason: SOB/WHEEZING Apixaban (Eliquis*) 5 mg PO BID [facility] Last Admin: 09/03/19 11:18 Dose: Not Given Atorvastatin Calcium (Lipitor*) 20 mg PO BEDTIME [facility] Last Admin: 09/02/19 23:53 Dose: Not Given Cyanocobalamin (Vitamin B12 Tab*) 1,000 mcg PO DAILY [facility] Last Admin: 09/03/19 11:18 Dose: Not Given Famotidine (Pepcid Tab*) 20 mg PO DAILY [facility] Last Admin: 09/03/19 11:18 Dose: Not Given Furosemide (Lasix Iv*) 60 mg IV 0800,1700 [facility] Last Admin: 09/03/19 08:54 Dose: 60 mg Insulin Glargine (Lantus(*)) 10 units SUBCUT Q24H [facility] Last Admin: 09/03/19 10:56 Dose: Not Given Insulin Human Lispro (Humalog*) 0 units SUBCUT ACHS [facility]; Protocol Last Admin: 09/03/19 12:14 Dose: Not Given Lactulose (Lactulose*) 60 ml PO TID [facility] Metoprolol Succinate (Toprol Xl Tab*) 50 mg PO DAILY [facility] Last Admin: 09/03/19 11:50 Dose: Not Given Multivitamins/Minerals (Theragran/Minerals Tab*) 1 tab PO DAILY [facility] Last Admin: 09/03/19 11:18 Dose: Not Given Nystatin (Nystatin Top Powder*) 1 applic TOPICAL BID [facility] Last Admin: 09/02/19 23:54 Dose: Not Given Pregabalin (Lyrica 25 Mg Cap (*)) 25 mg PO TID [facility] Last Admin: 09/03/19 11:18 Dose: Not Given Rifaximin (Xifaxan*) 550 mg PO BID [facility] Last Admin: 09/03/19 11:19 Dose: Not Given Spironolactone (Aldactone Tab*) 25 mg PO DAILY [facility] Last Admin: 09/03/19 11:19 Dose: Not Given Thiamine HCl (Vitamin B-1 Tab*) 100 mg PO DAILY [facility] Last Admin: 09/03/19 11:19 Dose: Not Given Vital Signs - 8 hr 09/03/19 08:00 Respiratory 16 Rate Oxygen Devices in Use Now: Nasal Cannula - 2L Appearance: Intially had bluish tint to lips and cheeks which pinkened after oxygen administration. Flat affect, no eye contact. Seen resting in bed, no acute distress. Eyes: No Scleral Icterus, PERRLA Ears/Nose/Mouth/Throat: NL Teeth, Lips, Gums, Clear Oropharnyx, Mucous Membranes Moist, - Neck: NL Appearance and Movements; NL JVP, Trachea Midline Respiratory: Symmetrical Chest Expansion and Respiratory Effort, Clear to Auscultation, - - Diminished throughout bilaterally. Cardiovascular: NL Sounds; No Murmurs; No JVD, RRR, - - +2 pitting edeme to bilateral legs. Abdominal: NL Sounds; No Tenderness; No Distention Lymphatic: No Cervical Adenopathy Extremities: No Clubbing, Cyanosis, - - Discoloration to bilateral distal LE. Skin: No Nodules or Sclerosis, - - Wounds to bilateral lower extremities. RLE would visualized, appeared to be moist, wound bed pink, scant weepy clear yellow drainage. Stage 2. Neurological: - - Would not answer questions. Lines/Tubes/Other Access: Clean, Dry and Intact Peripheral IV Result Diagrams: 09/03/19 13:12 09/03/19 13:12 Microbiology and Other Data: Microbiology 08/26/19 05:25 Urine Culture - Final Urine No Growth (<1,000 CFU/mL) 08/26/19 14:20 Stool Occult Blood (PEREZ) - Final Stool Assess/Plan/Problems-Billing Assessment: Patient is a 79yo female with a PMH for HFrEF due to HICM, DM II with diabetic neuropathy, LE Osteomyelitis, here with AMS and Hyperammonemia believed to be related to congestive hepatopathy. Improving on treatment with lactulose and diuresis. - Patient Problems (1) Hyperammonemia Current Visit: Yes Status: Acute Code(s): E72.20 - DISORDER OF UREA CYCLE METABOLISM, UNSPECIFIED SNOMED Code(s): 2539223 Comment: - Encephalopathy developed suddenly around midday yesterday, refusing all meds and care. UA negative. Ammonia level was elevated, which may correspond with her sudden change in behavior. Unlikely it is seizure activity or stroke as there are no focal deficits. Differentials include hospital delirium, social isolation from her family, and possible pneumonia as there was increased opacity in the left lung base in her xray today. Chest CT ordered for follow up. Dr. Miller involved to help determine capacity. - Ammonia 92 on 09/01, decreased to 81 on 09/02 despite refusing lactulose. However rifaximin added to regimen as her ammonia levels increased despite lactulose treatment. - LDH, PT and bilirubin are high. Dr. Melo consulted, he does not believe this to be a result of MORTENSEN because her ALT's have consistently been low. He feels this is a result of right sided heart failure. - Will need aggressive diuresis to help treat her liver. (2) Acute on chronic systolic heart failure Current Visit: No Status: Acute Code(s): I50.23 - ACUTE ON CHRONIC SYSTOLIC (CONGESTIVE) HEART FAILURE SNOMED Code(s): 092017021 Comment: - Fluctuating O2 supplementation needs. Currently on 2L oxygen via nasal cannula. - Unsure as to what precepitated this - Continue lasix 60mg IV BID and spironolactone. - Keep bonilla through diuresis for I/O monitoring. - Continue metoprolol, Spironolactone. - Continue I/O, daily weights - Due to NICM, clean cardiac cath. Thiamine Level normal. - Iron supplementation IV completed. - UOP remains good, I/O's with negative balance (3) Afib Current Visit: No Status: Chronic Code(s): I48.91 - UNSPECIFIED ATRIAL FIBRILLATION SNOMED Code(s): 77180991 Comment: - Chronic, rate controlled on Metoprolol - Continue apixaban - Continue tele (4) COPD (chronic obstructive pulmonary disease) Current Visit: No Status: Acute Code(s): J44.9 - CHRONIC OBSTRUCTIVE PULMONARY DISEASE, UNSPECIFIED SNOMED Code(s): 24761538 Comment: - Is not on inhalers at home. Ordered duonebs while inpatient. - SOB and wheezing more likely due to CHF- will continue with lasix for now (5) Diabetes Current Visit: No Status: Chronic Code(s): E11.9 - TYPE 2 DIABETES MELLITUS WITHOUT COMPLICATIONS SNOMED Code(s): 01410696 Comment: - Hgb A1C 7.2% on 06/18/19 - Continue lantus at 10units. - Continue lispro ss with FS AC (6) Hyperlipidemia Current Visit: No Status: Chronic Code(s): E78.5 - HYPERLIPIDEMIA, UNSPECIFIED SNOMED Code(s): 78025282 Comment: - Continue atorvastatin (7) Hypertension Current Visit: No Status: Chronic Code(s): I10 - ESSENTIAL (PRIMARY) HYPERTENSION SNOMED Code(s): 39448491 Comment: - SBP between 100-110's. - Continue metoprolol, furosemide and spironolactone. (8) Restless leg syndrome Current Visit: No Status: Chronic Comment: - Continue pregabalin. - Pramiprexole held due to hypothetical concerns about HF exacerbation - Patient seems to be doing well without pramipraxole at this time, likely continue to hold at discharge. (9) GERD (gastroesophageal reflux disease) Current Visit: Yes Status: Acute Code(s): K21.9 - GASTRO-ESOPHAGEAL REFLUX DISEASE WITHOUT ESOPHAGITIS SNOMED Code(s): 661043576 Comment: - Continue famotidine. (10) JOSHUA (obstructive sleep apnea) Current Visit: No Status: Acute Code(s): G47.33 - OBSTRUCTIVE SLEEP APNEA ( ADULT) (PEDIATRIC) SNOMED Code(s): 83992470 Comment: - Non-compliant with CPAP - Possibly contributing to Right Sided Heart Failure and congestive Hepatopathy. (11) DVT prophylaxis Current Visit: No Status: Acute Code(s): XYO8111 - SNOMED Code(s): 044824004 Comment: -Continue apixaban. (12) Full code status Current Visit: No Status: Acute Code(s): Z78.9 - OTHER SPECIFIED HEALTH STATUS SNOMED Code(s): 790113436 Status and Disposition: Condition: Stable. Disposition: Admit inpatient to [facility]. Back to [facility] on D/C Attending: Larry Ortiz
[2019-09-03] MEDS: Nystatin TOP POWDER* 15 GM BTL TOPICAL SCH ×2 (15:04→20:43)
--- NOTE | 2019-09-03 16:46 | CONSULT ---
Consult Consult: Psychiatry attempted to examine Ms. Kaufman for capacity, however, she was initially asleep and difficult to arouse. Upon return an hour later she was off the unit and receiving imaging in the CT suite. I understand from [facility] staff that she had an improvement on mentation after awakening and took her meds as prescribed. This clinician will attempt to reassess tomorrow (09/03).
[2019-09-03] MEDS: Atorvastatin* 20 MG TAB PO SCH (20:43)
[2019-09-04] MEDS: Insulin LISPRO* 1 UNITS UNIT SUBCUT SCH ×4 (08:09→22:28)
[2019-09-04] MEDS: Cyanocobalamin TAB* 500 MCG PO SCH (08:09)
[2019-09-04] MEDS: RiFAXimin* 550 MG TAB PO SCH ×2 (08:09→22:29)
[2019-09-04] MEDS: Apixaban* 5 MG TAB PO SCH ×2 (08:09→22:29)
[2019-09-04] MEDS: Multivitamins/Minerals TAB PO SCH (08:09)
[2019-09-04] MEDS: Pregabalin 25 mg CAP (*) PO SCH ×3 (08:10→22:29)
[2019-09-04] MEDS: Famotidine TAB* 20 MG PO SCH (08:10)
[2019-09-04] MEDS: Thiamine TAB* 100 MG TAB PO SCH (08:10)
[2019-09-04] MEDS: Metoprolol Succinate XL TAB* 50 MG PO SCH (08:10)
[2019-09-04] MEDS: Spironolactone TAB* 25 MG PO SCH (08:10)
[2019-09-04] MEDS: Furosemide IV* 10 MG/ML 10 ML VIAL (100 MG) IV SCH ×2 (08:10→17:21)
[2019-09-04] MEDS: Insulin GLARGINE(*) 1 UNITS UNIT SUBCUT SCH (08:10)
[2019-09-04] MEDS: Nystatin TOP POWDER* 15 GM BTL TOPICAL SCH ×2 (08:11→22:30)
--- NOTE | 2019-09-04 12:39 | CONSULT ---
Consult Consult: Consult for Medical Decision Making Capacity S: Psychiatry is asked to evaluate capacity in this 79 y.o. , obese white female with multiple medical comorbidities, including atrial fibrillation , CHF and DM, who is admitted to the Hospitalist service due to weakness and lethargy attributed to heart failure. According to her attending, SPINE NURSE Rashmi Monroy, she was initially agreeable with [facility], which is indicated following medical stabilization, however, she subsequently became confused and uncooperative, rescinding her consent for placement and refusing meds. The patient was difficult to arouse when I attempted to interview her yesterday (), however, I understand that in the interim she has rallied and is now taking meds and is again agreeable to [facility] placement. On exam the patient is awake and alert. She is oriented to person, time and situation, although she doesn't know the name of the hospital or floor she's on. 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 She correctly identifies "heart troubles" as her reason for being admitted here to the hospital and is aware that the primary team is recommending rehabilitation in a facility prior to returning to her home in [place], [place]. "I'm OK with that...I'm just so weak still." She identifies falls in the home setting as a risk were she to refuse [facility] placement. O: obese white female, aging; dressed in patient gown; fair grooming; calm, cooperative; euthymic with full affect; denies SI or HI; insight and judgment fair given acceptance of [facility] referral; awake and alert; oriented to person/ situation/time, moderate disorientation to place A/P: Capacity: the patient is accepting [facility] placement at this time and, in my judgment, has the capacity to do so, based on her demonstrated understanding of the risk/benefit appraisal of her situation. Capacity is subject to change in these situations and psychiatry can be re-consulted in the event of any significant changes in her presentation/situation. Thanks for the consult.
[2019-09-04 18:05] LABS: ABS Eosinophils 0.1 10^3/ul (0-0.6); ABS Lymphocytes 0.7 10^3/ul (1.0-4.8); ABS Monocytes 0.3 10^3/ul (0-0.8); ABS Neutrophils 2.6 10^3/ul (1.5-7.7); Eosinophil % 3.7 %; Hematocrit 35 % (35-47); Hemoglobin 11.2 g/dL (12.0-16.0); Lymphocyte % 18.3 %; Mean Corpuscular HGB Conc 32 g/dL (31-36); Mean Corpuscular Hemoglobin 28 pg (27-31); Mean Corpuscular Volume 87 fL (80-97); Mean Platelet Volume 7.4 fL (7.4-10.4); Nucleated Red Blood Cells % 0.2; Platelet Count 120 10^3/uL (150-450); Red Blood Count 4.01 10^6 /uL (3.70-4.87); Red Cell Distribution Width 25 % (10-15); White Blood Count 3.8 10^3/uL (3.5-10.8)
[2019-09-04 18:18] LABS: Calcium 8.8 mg/dL (8.6-10.3); EGFR African American 78.3 (>60); EGFR Non-African American 64.7 (>60); Potassium 3.5 mmol/L (3.5-5.0)
--- NOTE | 2019-09-04 19:11 | PN ---
Subjective Date of Service: 09/04/19 Interval History: Pt is alert and oriented x 3 today. Pt states that she is still ok with being discharged to [facility]. Pt is agreeable today with treatments and lab draws. Yesterday she had been resistant to any interventions. Pt denies any discomfort , chest pain, or SOB. Family History: Unchanged from Admission Social History: Unchanged from Admission Past Medical History: Unchanged from Admission Objective Active Medications: Acetaminophen (Tylenol Tab*) 650 mg PO Q4H PRN PRN Reason: MILD PAIN or TEMP > 100.4 Albuterol/Ipratropium (Duoneb (Albuterol 2.5 Mg/Ipratropium 0.5 Mg)) 1 neb INH Q4H PRN PRN Reason: SOB/WHEEZING Apixaban (Eliquis*) 5 mg PO BID [facility] Last Admin: 09/04/19 08:09 Dose: 5 mg Atorvastatin Calcium (Lipitor*) 20 mg PO BEDTIME [facility] Last Admin: 09/03/19 20:43 Dose: 20 mg Cyanocobalamin (Vitamin B12 Tab*) 1,000 mcg PO DAILY [facility] Last Admin: 09/04/19 08:09 Dose: 1,000 mcg Famotidine (Pepcid Tab*) 20 mg PO DAILY [facility] Last Admin: 09/04/19 08:10 Dose: 20 mg Furosemide (Lasix Iv*) 60 mg IV 0800,1700 [facility] Last Admin: 09/04/19 17:21 Dose: 60 mg Insulin Glargine (Lantus(*)) 10 units SUBCUT Q24H [facility] Last Admin: 09/04/19 08:10 Dose: 10 units Insulin Human Lispro (Humalog*) 0 units SUBCUT ACHS [facility]; Protocol Last Admin: 09/04/19 17:21 Dose: 3 units Lactulose (Lactulose*) 60 ml PO TID [facility] Last Admin: 09/04/19 13:39 Dose: 60 ml Metoprolol Succinate (Toprol Xl Tab*) 50 mg PO DAILY [facility] Last Admin: 09/04/19 08:10 Dose: 50 mg Multivitamins/Minerals (Theragran/Minerals Tab*) 1 tab PO DAILY [facility] Last Admin: 09/04/19 08:09 Dose: 1 tab Nystatin (Nystatin Top Powder*) 1 applic TOPICAL BID [facility] Last Admin: 09/04/19 08:11 Dose: 1 applic Pregabalin (Lyrica 25 Mg Cap (*)) 25 mg PO TID [facility] Last Admin: 09/04/19 13:38 Dose: 25 mg Rifaximin (Xifaxan*) 550 mg PO BID [facility] Last Admin: 09/04/19 08:09 Dose: 550 mg Spironolactone (Aldactone Tab*) 25 mg PO DAILY [facility] Last Admin: 09/04/19 08:10 Dose: 25 mg Thiamine HCl (Vitamin B-1 Tab*) 100 mg PO DAILY [facility] Last Admin: 09/04/19 08:10 Dose: 100 mg Vital Signs - 8 hr 09/04/19 09/04/19 09/04/19 11:36 13:38 15:15 Temperature 97.0 F 97.4 F Pulse Rate 60 60 Respiratory 16 18 12 Rate Blood Pressure 113/52 93/44 (mmHg) O2 Sat by Pulse 99 100 Oximetry 09/04/19 15:38 Temperature Pulse Rate Respiratory 16 Rate Blood Pressure (mmHg) O2 Sat by Pulse Oximetry Oxygen Devices in Use Now: Nasal Cannula Appearance: Obese elderly woman laying in bed staring at wall. Pt does have flat affect but does not appear to be in any distress. Eyes: No Scleral Icterus Ears/Nose/Mouth/Throat: NL Teeth, Lips, Gums, Clear Oropharnyx, Mucous Membranes Moist Neck: NL Appearance and Movements; NL JVP, Trachea Midline, No Thyroid Enlargement, Masses Respiratory: Symmetrical Chest Expansion and Respiratory Effort, Clear to Auscultation Cardiovascular: NL Sounds; No Murmurs; No JVD, RRR, - - +1 nonpitting edema bilateral lower extremities Abdominal: NL Sounds; No Tenderness; No Distention, No Hepatosplenomegaly Lymphatic: No Cervical Adenopathy Skin: No Rash or Ulcers, No Nodules or Sclerosis Neurological: Alert and Oriented x 3, NL Sensation, NL Muscle Strength and Tone Nutrition: Taking PO's Result Diagrams: 09/04/19 17:56 09/04/19 17:56 Microbiology and Other Data: Microbiology 08/26/19 05:25 Urine Culture - Final Urine No Growth (<1,000 CFU/mL) 08/26/19 14:20 Stool Occult Blood (PEREZ) - Final Stool Assess/Plan/Problems-Billing Assessment: Patient is a 79yo female with a PMH for HFrEF due to HICM, DM II with diabetic neuropathy, LE Osteomyelitis, here with AMS and Hyperammonemia believed to be related to congestive hepatopathy. Improving on treatment with lactulose and diuresis. - Patient Problems (1) Hyperammonemia Current Visit: Yes Comment: - Encephalopathy appears to have resolved presently, pt is alert, oriented and cooperative today. Agreeable with [facility] upon discharge. Pt remains without asterixis today. - Ammonia 92 on 09/01, decreased to 81 on 09/02 despite refusing lactulose. However rifaximin added to regimen as her ammonia levels increased despite lactulose treatment. -Unable to obtain ammonia level today as blood hemolyzed in lab. Will attempt again in AM. (2) Acute on chronic systolic heart failure Current Visit: No Comment: - Fluctuating O2 supplementation needs. Currently on 2L oxygen via nasal cannula. - Unsure as to what precepitated this - Continue lasix 60mg IV BID and spironolactone. - Keep bonilla through diuresis for I/O monitoring. - Continue metoprolol - Continue I/O, daily weights - Due to NICM, clean cardiac cath. Thiamine Level normal. - Iron supplementation IV completed. - UOP remains good, I/O's with negative balance - Bonilla catheter draining dark yellow clear urine. (3) DVT prophylaxis Current Visit: No Comment: -Continue apixaban. (4) GERD (gastroesophageal reflux disease) Current Visit: Yes Comment: - Continue famotidine. (5) JOSHUA (obstructive sleep apnea) Current Visit: No Status: Acute Code(s): G47.33 - OBSTRUCTIVE SLEEP APNEA ( ADULT) (PEDIATRIC) SNOMED Code(s): 57536699 Comment: - Non-compliant with CPAP - Possibly contributing to Right Sided Heart Failure and congestive Hepatopathy. (6) Diabetic neuropathy Current Visit: No Status: Chronic Code(s): E11.40 - TYPE 2 DIABETES MELLITUS WITH DIABETIC NEUROPATHY, UNSP SNOMED Code(s): 257964745 Comment: Continue lyrica. (7) Hyperlipidemia Current Visit: No Status: Chronic Code(s): E78.5 - HYPERLIPIDEMIA, UNSPECIFIED SNOMED Code(s): 60640826 Comment: - Continue atorvastatin (8) Hypertension Current Visit: No Status: Chronic Code(s): I10 - ESSENTIAL (PRIMARY) HYPERTENSION SNOMED Code(s): 24866224 Comment: - SBP between 100-110's. - Continue metoprolol, furosemide and spironolactone. (9) Restless leg syndrome Current Visit: No Comment: - Continue pregabalin. - Pramiprexole held due to hypothetical concerns about HF exacerbation - Patient seems to be doing well without pramipraxole at this time, likely continue to hold at discharge. (10) Full code status Current Visit: No Status and Disposition: Condition: Stable. Disposition: Admit inpatient to [facility] on D/C
[2019-09-04] MEDS: Atorvastatin* 20 MG TAB PO SCH (22:29)
[2019-09-05] MEDS: cefTRIAXone(*) 1 GM in NS 0.9% 50 ML* 50 ML IVPB SCH ×2 (00:35→23:42)
[2019-09-05 06:20] LABS: Albumin 2.8 g/dL (3.2-5.2); Albumin/Globulin Ratio 0.8 (1-3); BUN/Creatinine Ratio 20.3 (8-20); Calcium 8.4 mg/dL (8.6-10.3); EGFR African American 91.8 (>60); EGFR Non-African American 75.9 (>60); Globulin 3.4 g/dL (2-4); Potassium 3.1 mmol/L (3.5-5.0); Total Protein 6.2 g/dL (6.4-8.9)
[2019-09-05 06:56] LABS: ABS Eosinophils 0.2 10^3/ul (0-0.6); ABS Lymphocytes 0.7 10^3/ul (1.0-4.8); ABS Monocytes 0.4 10^3/ul (0-0.8); ABS Neutrophils 2.4 10^3/ul (1.5-7.7); Eosinophil % 4.9 %; Hematocrit 33 % (35-47); Hemoglobin 10.4 g/dL (12.0-16.0); Lymphocyte % 18.5 %; Mean Corpuscular HGB Conc 32 g/dL (31-36); Mean Corpuscular Hemoglobin 28 pg (27-31); Mean Corpuscular Volume 87 fL (80-97); Mean Platelet Volume 7.8 fL (7.4-10.4); Nucleated Red Blood Cells % 0.1; Platelet Count 104 10^3/uL (150-450); Red Blood Count 3.73 10^6 /uL (3.70-4.87); Red Cell Distribution Width 26 % (10-15); White Blood Count 3.7 10^3/uL (3.5-10.8)
[2019-09-05] MEDS ORDERED: Albuterol/Ipratropium NEB.SOL* (2.5/0.5 MG) 3 ML NEB.SOLN INH PRN (08:05)
[2019-09-05] MEDS: Pregabalin 25 mg CAP (*) PO SCH ×3 (09:00→22:51)
[2019-09-05] MEDS: Apixaban* 5 MG TAB PO SCH ×2 (09:00→22:51)
[2019-09-05] MEDS: Metoprolol Succinate XL TAB* 50 MG PO SCH (09:00)
[2019-09-05] MEDS: Spironolactone TAB* 25 MG PO SCH (09:00)
[2019-09-05] MEDS: Insulin GLARGINE(*) 1 UNITS UNIT SUBCUT SCH (09:00)
[2019-09-05] MEDS: Cyanocobalamin TAB* 500 MCG PO SCH (09:00)
[2019-09-05] MEDS: Multivitamins/Minerals TAB PO SCH (09:00)
[2019-09-05] MEDS: Famotidine TAB* 20 MG PO SCH (09:00)
[2019-09-05] MEDS: Thiamine TAB* 100 MG TAB PO SCH (09:00)
[2019-09-05] MEDS: RiFAXimin* 550 MG TAB PO SCH ×2 (09:00→22:54)
[2019-09-05] MEDS: Insulin LISPRO* 1 UNITS UNIT SUBCUT SCH ×4 (09:01→22:52)
[2019-09-05] MEDS: Nystatin TOP POWDER* 15 GM BTL TOPICAL SCH ×2 (09:01→22:53)
[2019-09-05] MEDS: Furosemide IV* 10 MG/ML 10 ML VIAL (100 MG) IV SCH ×2 (09:07→17:20)
--- NOTE | 2019-09-05 10:11 | PN ---
Subjective Date of Service: 09/05/19 Interval History: Pt is alert and oriented x 3, although affect remains primarily flat she does smile slightly in interactions. Pt reports that she is feeling better. Denies any chest pain, SOB, Dizziness or other discomfort. Pt reports that she remains agreeable with [facility] on D/C when one becomes available. Family History: Unchanged from Admission Social History: Unchanged from Admission Past Medical History: Unchanged from Admission Objective Active Medications: Acetaminophen (Tylenol Tab*) 650 mg PO Q4H PRN PRN Reason: MILD PAIN or TEMP > 100.4 Albuterol/Ipratropium (Duoneb (Albuterol 2.5 Mg/Ipratropium 0.5 Mg)) 3 ml INH Q4H PRN PRN Reason: SOB/WHEEZING Apixaban (Eliquis*) 5 mg PO BID [facility] Last Admin: 09/05/19 09:00 Dose: 5 mg Atorvastatin Calcium (Lipitor*) 20 mg PO BEDTIME [facility] Last Admin: 09/04/19 22:29 Dose: 20 mg Cyanocobalamin (Vitamin B12 Tab*) 1,000 mcg PO DAILY [facility] Last Admin: 09/05/19 09:00 Dose: 1,000 mcg Famotidine (Pepcid Tab*) 20 mg PO DAILY [facility] Last Admin: 09/05/19 09:00 Dose: 20 mg Furosemide (Lasix Iv*) 60 mg IV 0800,1700 [facility] Last Admin: 09/05/19 09:07 Dose: 60 mg Ceftriaxone Sodium 1 gm/ (Sodium Chloride) 50 mls @ 100 mls/hr IVPB Q24H [facility] Stop: 09/09/19 22:59 Last Admin: 09/05/19 00:35 Dose: 100 mls/hr Potassium Chloride (Potassium Chloride 20 Meq/100 Ml Ivpremix*) 20 meq in 100 mls @ 50 mls/hr IV Q2H [facility] Stop: 09/05/19 15:59 Insulin Glargine (Lantus(*)) 10 units SUBCUT Q24H [facility] Last Admin: 09/05/19 09:00 Dose: 10 units Insulin Human Lispro (Humalog*) 0 units SUBCUT ACHS [facility]; Protocol Last Admin: 09/05/19 09:01 Dose: Not Given Lactulose (Lactulose*) 60 ml PO TID [facility] Last Admin: 09/05/19 09:00 Dose: 60 ml Metoprolol Succinate (Toprol Xl Tab*) 50 mg PO DAILY [facility] Last Admin: 09/05/19 09:00 Dose: 50 mg Multivitamins/Minerals (Theragran/Minerals Tab*) 1 tab PO DAILY [facility] Last Admin: 09/05/19 09:00 Dose: 1 tab Nystatin (Nystatin Top Powder*) 1 applic TOPICAL BID [facility] Last Admin: 09/05/19 09:01 Dose: 1 applic Pregabalin (Lyrica 25 Mg Cap (*)) 25 mg PO TID [facility] Last Admin: 09/05/19 09:00 Dose: 25 mg Rifaximin (Xifaxan*) 550 mg PO BID [facility] Last Admin: 09/05/19 09:00 Dose: 550 mg Spironolactone (Aldactone Tab*) 25 mg PO DAILY [facility] Last Admin: 09/05/19 09:00 Dose: 25 mg Thiamine HCl (Vitamin B-1 Tab*) 100 mg PO DAILY [facility] Last Admin: 09/05/19 09:00 Dose: 100 mg Vital Signs - 8 hr 09/05/19 09/05/19 09/05/19 03:00 03:15 09:00 Temperature 97.6 F Pulse Rate 59 94 Respiratory 16 17 16 Rate Blood Pressure 96/59 (mmHg) O2 Sat by Pulse 100 90 Oximetry Oxygen Devices in Use Now: None Appearance: Obese elderly woman appearing stated age. Sitting up in bed reading news paper. Pt does not appear to be in any distress. Eyes: No Scleral Icterus, PERRLA Ears/Nose/Mouth/Throat: NL Teeth, Lips, Gums, Clear Oropharnyx, Mucous Membranes Moist Neck: NL Appearance and Movements; NL JVP, Trachea Midline, No Thyroid Enlargement, Masses Respiratory: Symmetrical Chest Expansion and Respiratory Effort, Clear to Auscultation Cardiovascular: NL Sounds; No Murmurs; No JVD, RRR, - - +1 edema RLE +1 edema L ankle pedal pulses palpable bilaterally Abdominal: NL Sounds; No Tenderness; No Distention, No Hepatosplenomegaly, - - Hyperactive bowel sounds x 4 quadrants Lymphatic: No Cervical Adenopathy Extremities: No Clubbing, Cyanosis Skin: No Rash or Ulcers, No Nodules or Sclerosis Neurological: Alert and Oriented x 3, NL Sensation, NL Muscle Strength and Tone Lines/Tubes/Other Access: Clean, Dry and Intact Bonilla - clear yellow urine with mucous shreds observed in drain tube Nutrition: Taking PO's Result Diagrams: 09/05/19 05:48 09/05/19 05:48 Microbiology and Other Data: Microbiology 08/26/19 05:25 Urine Culture - Final Urine No Growth (<1,000 CFU/mL) 08/26/19 14:20 Stool Occult Blood (PEREZ) - Final Stool Assess/Plan/Problems-Billing Assessment: Patient is a 79yo female with a PMH for HFrEF due to HICM, DM II with diabetic neuropathy, LE Osteomyelitis, here with AMS and Hyperammonemia believed to be related to congestive hepatopathy. Improving on treatment with lactulose and diuresis. - Patient Problems (1) Hyperammonemia Current Visit: Yes Comment: - Encephalopathy has resolved, pt is alert, oriented and cooperative today. Agreeable with DEXTER upon discharge. -Ammonia level 58 today Responding well to lactulose will continue TID dosing -Pt responding well to rifaximin treatment. Pt remains alert and oriented today. Ammonia level continues to improve. (2) Acute on chronic systolic heart failure Current Visit: No Comment: - Currently on 2L oxygen via nasal cannula. Will attempt to wean oxygen today as it is unclear if patient requires supplemental oxygen. SpO2 results vary showing normal results on room air as well as on supplemental O2. - Unsure as to what precepitated this - Continue lasix 60mg IV BID and spironolactone. - Pt becoming hypokalemic at 3.1 will replace today with KCL IV x 3 runs - Keep bonilla through diuresis for I/O monitoring. - Continue metoprolol - Continue I/O, daily weights - Due to NICM, clean cardiac cath. Thiamine Level normal. - UOP remains good, I/O's remain with negative balance - Bonilla catheter draining dark yellow clear urine. (3) GERD (gastroesophageal reflux disease) Current Visit: Yes Comment: - Continue famotidine. (4) JOSHUA (obstructive sleep apnea) Current Visit: No Status: Acute Code(s): G47.33 - OBSTRUCTIVE SLEEP APNEA ( ADULT) (PEDIATRIC) SNOMED Code(s): 64135018 Comment: - Non-compliant with CPAP - Possibly contributing to Right Sided Heart Failure and congestive Hepatopathy. (5) Diabetic neuropathy Current Visit: No Status: Chronic Code(s): E11.40 - TYPE 2 DIABETES MELLITUS WITH DIABETIC NEUROPATHY, UNSP SNOMED Code(s): 747967831 Comment: Continue lyrica. (6) Hyperlipidemia Current Visit: No Status: Chronic Code(s): E78.5 - HYPERLIPIDEMIA, UNSPECIFIED SNOMED Code(s): 12048083 Comment: - Continue atorvastatin (7) Hypertension Current Visit: No Status: Chronic Code(s): I10 - ESSENTIAL (PRIMARY) HYPERTENSION SNOMED Code(s): 53436798 Comment: - SBP between 100-110's. - Continue metoprolol, furosemide and spironolactone. (8) Restless leg syndrome Current Visit: No Comment: - Continue pregabalin. - Pramiprexole held due to hypothetical concerns about HF exacerbation - Patient seems to be doing well without pramipraxole at this time, likely continue to hold at discharge. (9) Full code status Current Visit: No (10) DVT prophylaxis Current Visit: No Comment: -Continue apixaban. Status and Disposition: Condition: Stable. Disposition: Admit inpatient to [facility] on D/C
[2019-09-05] MEDS: KCL 20 MEQ/100 ML IVPREMIX* 20 MEQ/100 ML BAG IV SCH ×3 (10:27→17:19)
[2019-09-05] MEDS: Atorvastatin* 20 MG TAB PO SCH (22:51)
[2019-09-06 06:44] LABS: Albumin/Globulin Ratio 0.8 (1-3); BUN/Creatinine Ratio 17.1 (8-20); Calcium 8.5 mg/dL (8.6-10.3); EGFR African American 89.1 (>60); EGFR Non-African American 73.6 (>60); Globulin 3.9 g/dL (2-4); Indirect Bilirubin 0.9 mg/dL (0.3-1.0); Potassium 3.7 mmol/L (3.5-5.0); Total Bilirubin 1.9 mg/dL (0.2-1.0); Total Protein 6.9 g/dL (6.4-8.9)
[2019-09-06 06:56] LABS: ABS Eosinophils 0.2 10^3/ul (0-0.6); ABS Lymphocytes 0.7 10^3/ul (1.0-4.8); ABS Monocytes 0.4 10^3/ul (0-0.8); ABS Neutrophils 3.3 10^3/ul (1.5-7.7); Hematocrit 35 % (35-47); Hemoglobin 11.2 g/dL (12.0-16.0); Lymphocyte % 14.4 %; Mean Corpuscular HGB Conc 32 g/dL (31-36); Mean Corpuscular Hemoglobin 28 pg (27-31); Mean Corpuscular Volume 88 fL (80-97); Mean Platelet Volume 7.9 fL (7.4-10.4); Nucleated Red Blood Cells % 0.1; Platelet Count 99 10^3/uL (150-450); Red Blood Count 3.95 10^6 /uL (3.70-4.87); Red Cell Distribution Width 26 % (10-15); White Blood Count 4.5 10^3/uL (3.5-10.8)
[2019-09-06] MEDS: Insulin LISPRO* 1 UNITS UNIT SUBCUT SCH ×4 (09:06→21:57)
[2019-09-06] MEDS: Cyanocobalamin TAB* 500 MCG PO SCH (09:07)
[2019-09-06] MEDS: Insulin GLARGINE(*) 1 UNITS UNIT SUBCUT SCH (09:07)
[2019-09-06] MEDS: Furosemide IV* 10 MG/ML 10 ML VIAL (100 MG) IV SCH ×2 (09:07→17:30)
[2019-09-06] MEDS: Metoprolol Succinate XL TAB* 50 MG PO SCH (09:08)
[2019-09-06] MEDS: Apixaban* 5 MG TAB PO SCH ×2 (09:08→21:56)
[2019-09-06] MEDS: Famotidine TAB* 20 MG PO SCH (09:08)
[2019-09-06] MEDS: Thiamine TAB* 100 MG TAB PO SCH (09:08)
[2019-09-06] MEDS: Pregabalin 25 mg CAP (*) PO SCH ×3 (09:08→21:56)
[2019-09-06] MEDS: RiFAXimin* 550 MG TAB PO SCH ×2 (09:08→21:56)
[2019-09-06] MEDS: Multivitamins/Minerals TAB PO SCH (09:08)
[2019-09-06] MEDS: Nystatin TOP POWDER* 15 GM BTL TOPICAL SCH ×2 (09:09→21:57)
[2019-09-06] MEDS: Spironolactone TAB* 25 MG PO SCH (09:09)
--- NOTE | 2019-09-06 16:56 | DS ---
Amended report to enter cosigning physician. CC: Dr. Damaso Sylvester* DISCHARGE SUMMARY: DATE OF ADMISSION: 08/26/19 DATE OF DISCHARGE: PROVIDER: Atul Love NP PRIMARY CARE PROVIDER: Dr. Damaso Sylvester. ATTENDING PHYSICIAN WHILE IN THE HOSPITAL: Dr. Yoon Bolanos* (dictated by Atul Love NP). PRIMARY DIAGNOSES: 1. Congestive heart failure. 2. Hyperammonemia. SECONDARY DIAGNOSES: 1. Atrial fibrillation with sick sinus syndrome, status post pacemaker placement. 2. Insulin-dependent diabetes mellitus. 3. Nonischemic cardiomyopathy. 4. Obstructive sleep apnea. 5. Restless legs syndrome. 6. Gastroesophageal reflux disease. STUDIES WHILE IN THE HOSPITAL: 1. On 08/26/19, chest x-ray: Findings are consistent with cardiogenic pulmonary edema. The degree of variation is similar to the previous recent chest x-ray. 2. On 08/26/19, EKG: Demand ventricular paced rhythm and possible atrial fibrillation. 3. On 08/27/19, ultrasound liver: Homogeneously increased echogenicity liver could be seen in the setting of hepatic steatosis or another chronic infiltrative disease. There is no sonographic evidence of pathologic biliary obstruction. Right-sided pleural effusion is partially visualized. 4. On 09/03/19, chest x-ray: Cardiomegaly, pulmonary interstitial edema, left basilar atelectasis versus consolidation, and small left pleural effusion. 5. On 09/03/19, CT chest without contrast: There is cardiomegaly noted. Interstitial edema is noted. Ground-glass opacities in the upper lobes bilaterally are noted most consistent with pulmonary edema rather than pneumonia. No air bronchograms to suggest consolidation is noted. Bibasilar atelectasis with bilateral pleural effusions greater on the right than on the left is noted. CONSULTATIONS WHILE IN THE HOSPITAL: 1. Dr. Melo from Gastroenterology. 2. Dr. Hermelindo Miller from Psychiatry. HISTORY OF PRESENT ILLNESS AND HOSPITAL COURSE: Ms. Kaufman is a 79-year-old female patient with past medical history of atrial fibrillation, on anticoagulation, with sick sinus syndrome, status post pacemaker placement in June 2019; insulin- dependent diabetes; restless legs syndrome; obstructive sleep apnea; congestive heart failure with reduced ejection fraction of 40% to 45% in 2019. The patient arrived to the emergency department from [facility] with progressively worsening lethargy and an elevated ammonia level. The patient's mental status was decreased; however, she was awake and alert, but very inattentive and had difficulty with answering questions. Laboratory values reported from [facility] showed ammonia level at 140 and BNP of 500. The patient was also showing signs and symptoms of significant CHF , which were supported by BNP of 500. Throughout the course of her hospital stay, the patient's ammonia level fluctuated from the initial 86 to as high as 92 and declined to 53 yesterday. As a result, the patient's mentation has returned to baseline. The patient is alert and oriented x3. She is without complaints currently. Affect is appropriate. The patient smiles and laughs, which is a marked improvement from her initial presentation. It has been determined as the patient does not have history of liver failure. Her lab work does not support diagnosis of liver failure, although initially her AST was 52 and it has decreased to 36 and her ALT remained at normal level 11 to 16 throughout her stay. In consultation with Dr. Melo, it is his feeling that because the patient does not have longstanding history of parenchymal liver disease, it is unlikely elevated ammonia levels are related to liver function, but rather due to the patient's cardiac history of right ventricular failure. It was likely felt that the patient's elevated ammonia levels are more so related to congestive hepatopathy from gross fluid volume overload due to right- sided heart failure and congestive heart failure. The patient's ammonia levels were stabilized with lactulose 60 mL p.o. t.i.d. The patient also was placed on rifaximin 550 mg p.o. b.i.d. to assist in decreasing the level of ammonia. Both medications in conjunction proved to be successful as the patient's mentation steadily improved and ammonia level decreased to normal level 53. Congestive heart failure. The patient was aggressively diuresed with furosemide 60 mg IV b.i.d. as well as with spironolactone; however, the patient was becoming hypokalemic. Potassium was replaced with 3 runs of potassium chloride with resulting potassium of 3.7 today. The patient did maintain negative fluid balance while being diuresed. Daily output was greater than 1000 mL via Vasquez catheter. The patient's lung sounds have cleared throughout all lung aggarwal. Lower extremity edema remains present; however, it is reduced to +1 pitting bilaterally. The patient's Lyrica and pramipexole were both initially stopped due to concerns for the potential to worsening congestive heart failure. Eventually Mandeep Velez did develop some complaints, so it was decided that Lyrica could be restarted; however, we did cut the dose in half from 50 mg t.i.d. to [address] Hermelindo Miller, psychiatrist was consulted to assess the patient's capacity to accept placement in subacute rehab following discharge. On 09/04/19, Dr. Miller felt that the patient did have capacity to accept transfer to subacute rehab. Related to the patient's lung sounds being clear respiratory status stable, ammonia level in the normal range, the patient's mentation has returned to baseline, alert and oriented x4, I do feel that the patient is stable enough at this time for transfer to subacute rehab today. PHYSICAL EXAMINATION: Ms. Kaufman is an obese, elderly woman, appearing stated age, sitting up in bed, chatting with a friend at bedside. The patient does not appear to be in any distress. Eyes are without any scleral icterus or conjunctival injection. Pupils are PERRL. Normal teeth, lips, gums. Clear oropharynx. Mucous membranes moist and pink. Neck is supple. Normal appearance and movement. Trachea is midline. No thyroid enlargement or masses. Respiratory: Symmetrical chest expansion and respiratory effort. Clear to auscultation through all lung aggarwal. Normal heart sounds. No murmurs, rubs, or gallops. Regular rate and rhythm presently. +1 edema in the right and left feet. Pedal pulses palpable bilaterally. Hyperactive bowel sounds. No tenderness. No distention. No hepatosplenomegaly although assessment difficult due to body habitus. No cervical lymphadenopathy. No clubbing or cyanosis noted in any extremities. There are no rashes noted on the skin; however, the patient is developing a stage II ulcer on the sacrum due to friction. The ulcer is not open. Skin is beefy red and blanchable. Currently, skin protectant has been applied. Neurological: The patient is alert and oriented x3. Normal sensation. Normal muscle strength and tone; however, the patient does have lower extremity weakness for which she is going to be receiving physical therapy and subacute rehab. Vasquez catheter is in intact, draining dark yellow urine. Ms. Kaufman is stable for discharge. Most recent vital signs are as follows: 97.6 for temp, 80 for heart rate, 18 respirations, 100% on room air, 101/65 for blood pressure. DISCHARGE MEDICATIONS: Changed medications: 1. Lyrica 25 mg p.o. t.i.d. (previously 50 mg p.o. t.i.d.) 2. Furosemide 40 mg p.o. b.i.d. Pramipexole was discontinued due to potential risk for worsening CHF. Continued medications: 1. Acetaminophen 650 mg p.o. q.4 hours p.r.n. mild pain or temperature greater than 100.4. 2. Atorvastatin 20 mg p.o. q.p.m. 3. Vitamin B12 1000 mcg sublingual daily. 4. Famotidine 20 mg p.o. daily. 5. Metoprolol succinate XL 50 mg p.o. daily. 6. Spironolactone 25 mg p.o. daily. 7. Apixaban 5 mg p.o. b.i.d. 8. Bisacodyl 10 mg p.r. daily as needed for constipation. 9. Diphenhydramine 25 mg p.o. q.8 hours p.r.n. itching. 10. Colace 100 mg p.o. b.i.d. 11. Insulin glargine 40 units subcutaneous daily. 12. Insulin regular 4 to 8 units subcutaneous b.i.d. 13. Lactulose 30 mL p.o. t.i.d. 14. Magnesium hydroxide 30 mL p.o. at bedtime p.r.n. constipation. 15. Multivitamin 1 tab p.o. daily. 16. Nystatin topical powder 1 application topically b.i.d. 17. Polyethylene glycol 17 g p.o. daily as needed for constipation. 18. Sodium phosphate adult enema 1 bottle p.r. daily as needed for constipation. 19. Tamsulosin 0.4 mg p.o. daily. 20. Torsemide 40 mg p.o. daily. 21. Trazodone 50 mg p.o. at bedtime. DISCHARGE PLAN: Discharge to [facility] for physical rehabilitation. Your pramipexole has been discontinued as this medication has the potential to worsen CHF. Your Lyrica dose has been decreased from 50 mg to 25 mg by mouth t.i.d. This medication may also have the potential to worsen CHF. You have been started on Lasix 40 mg p.o. b.i.d. In 1 week, recheck BMP for renal function. Monitor blood pressure. If blood pressure becomes less than 100 mmHg, stop the medication. Follow up with your primary care provider, Dr. Sylvester, in 1 week. Please return to the emergency department for any alterations in mentation, shortness of breath, chest pain, fevers, or other concerning symptoms. DISCHARGE CONDITION: Stable. DISCHARGE DISPOSITION: Home. This is a summarized report of complex medical history and hospital stay. For further details, please see the entire medical record. TIME SPENT: Approximately 50 minutes on this discharge. ATUL LOVE, ISSA [id number]/[facility] #: [id number] KIERA
[2019-09-06] MEDS ORDERED: cefTRIAXone(*) 1 GM in NS 0.9% 50 ML* 50 ML IVPB ONE (19:06)
[2019-09-06] MEDS: Atorvastatin* 20 MG TAB PO SCH (21:56)
[2019-09-07] MEDS: Insulin LISPRO* 1 UNITS UNIT SUBCUT SCH (08:18)
[2019-09-07] MEDS: Insulin GLARGINE(*) 1 UNITS UNIT SUBCUT SCH (08:27)
[2019-09-07] MEDS: Metoprolol Succinate XL TAB* 50 MG PO SCH (08:28)
[2019-09-07] MEDS: Thiamine TAB* 100 MG TAB PO SCH (08:28)
[2019-09-07] MEDS: Furosemide IV* 10 MG/ML 10 ML VIAL (100 MG) IV SCH (08:28)
[2019-09-07] MEDS: Spironolactone TAB* 25 MG PO SCH (08:28)
[2019-09-07] MEDS: Cyanocobalamin TAB* 500 MCG PO SCH (08:28)
[2019-09-07] MEDS: Pregabalin 25 mg CAP (*) PO SCH (08:28)
[2019-09-07] MEDS: Apixaban* 5 MG TAB PO SCH (08:28)
[2019-09-07] MEDS: Famotidine TAB* 20 MG PO SCH (08:28)
[2019-09-07] MEDS: RiFAXimin* 550 MG TAB PO SCH (08:29)
[2019-09-07] MEDS: Multivitamins/Minerals TAB PO SCH (08:29)
[2019-09-07] MEDS: Nystatin TOP POWDER* 15 GM BTL TOPICAL SCH (08:29)
[2019-09-07 08:55] VITALS: BP 120/56
== END 2019-09-07 10:55 | DRG 292 ==
LOC: ED 03:47 → MEDTELE 04:27
PROVIDERS: ADMIT Internal Medicine; ATTEND Internal Medicine
DX: I11.0 Hypertensive heart disease with heart failure (principal); E72.20 Disorder of urea cycle metabolism, unspecified; Z68.42 Body mass index [BMI] 45.0-49.9, adult; J44.1 Chronic obstructive pulmonary disease with (acute) exacerbation; G93.49 Other encephalopathy; I50.23 Acute on chronic systolic (congestive) heart failure; I42.0 Dilated cardiomyopathy; E11.51 Type 2 diabetes mellitus with diabetic peripheral angiopathy without gangrene; E11.40 Type 2 diabetes mellitus with diabetic neuropathy, unspecified; E78.5 Hyperlipidemia, unspecified; G47.33 Obstructive sleep apnea (adult) (pediatric); I48.91 Unspecified atrial fibrillation; I49.5 Sick sinus syndrome; G25.81 Restless legs syndrome; D69.6 Thrombocytopenia, unspecified; K21.9 Gastro-esophageal reflux disease without esophagitis; E66.01 Morbid (severe) obesity due to excess calories; R68.0 Hypothermia, not associated with low environmental temperature; I50.810 Right heart failure, unspecified; Z98.84 Bariatric surgery status; Z89.422 Acquired absence of other left toe(s); Z95.0 Presence of cardiac pacemaker; Z85.42 Personal history of malignant neoplasm of other parts of uterus; Z91.19 Patient's noncompliance with other medical treatment and regimen; Z79.4 Long term (current) use of insulin; Z79.01 Long term (current) use of anticoagulants; Z79.899 Other long term (current) drug therapy
CPT/HCPCS: 36415; 71045; 71046; 71250; 76705; 80048; 80053; 80076; 81003; 81015; 82140; 82270; 82728; 83010; 83540; 83550; 83605; 83615; 83735; 84425; 85025; 85045; 85049; 85060; 85610; 87077; 87086; 87186; 93005; 99284; A9270-GY; J0696; J1630; J1756; J1940; J3411; J3475; J3480